=== PATIENT | male | born 1950 | race Caucasian/White ===

== ENCOUNTER 2023-01-21 12:09 | Emergency (ER) | payer MEDICARE, SELFPAY ==
[2023-01-21 12:17] VITALS: BP 175/88; PULSE 84; RESP 14; TEMP 36.7; O2SAT 95; BMI 31.1
[2023-01-21] MEDS: FLUORESCEIN SODIUM 1 MG STRIP OP (12:32)
--- NOTE | 2023-01-21 12:36 | PC.NURSE ---
drop in right eye and light at bedside for DR use.
--- NOTE | 2023-01-21 12:37 | ED_ITS ---
HPI - Eye Problem General Chief complaint: Eye Problems Stated complaint: EYE IRRITATION/SCRATCH Time Seen by Provider: 01/21/23 12:25 Source: patient Mode of arrival: walk-in History of Present Illness HPI Narrative: patient was cutting plywood today and got some of the dust into his right eye. He has redness and a foreign body sensation. he had increased tearing. No visual change. he does not wear contact lenses, glasses or protective eyewear. He called to a local screw cutter's office and they told him to come to the ER. Related Data Home Medications Medication Instructions Recorded Confirmed losartan 100 mg tablet 100 mg PO DAILY 01/21/23 01/21/23 warfarin 1 mg tablet 0.5 mg PO DAILY 01/21/23 01/21/23 Previous Rx's Medication Instructions Recorded tobramycin 0.3 %-dexamethasone 0.1 1 drp ophthalmic (eye) Q6H 5 days 01/21/23 % eye drops,suspension (TobraDex) #2.5 mL Allergies Allergy/AdvReac Type Severity Reaction Status Date / Time moxifloxacin [From Avelox] Allergy Severe Verified 01/21/23 12:17 Quinolones Allergy Severe Verified 01/21/23 12:17 Sulfa (Sulfonamide Allergy Severe Verified 01/21/23 12:17 Antibiotics) sulfamethoxazole Allergy Severe Verified 01/21/23 12:17 [From Bactrim] trimethoprim [From Bactrim] Allergy Severe Verified 01/21/23 12:17 [facility] Medical History (Updated 01/21/23 @ 12:47 by Marco Crystal) Exam Narrative Exam Narrative: General: The patient appears well and in no apparent distress. Patient is resting comfortably on cart. Skin: Warm, dry, no pallor noted. Head: Normocephalic, atraumatic Neck: Supple, trachea mid-line, no tenderness, no lymphadenopathy Eye: Normal extraocular motion without associated pain. Pupils equal, round and reactive to light. Conjunctival injection noted. No swelling of the upper/lower eyelid. Patient's upper eyelid was everted - no evidence of foreign body. The patient had ALCAINE/TETRACAINE applied to the right eye with fluorescein dye instilled afterward. Exam with Wood's lamp showed a tiny set of linear uptake at the right cornea. No evidence of hyphema, dendritic lesion, corneal ulcerations, preseptal cellulitis or orbital cellulitis. Ears, Nose, Mouth, and Throat: oral mucosa is moist Respiratory: Patient is in no distress Neurological: A&O x4, normal speech Psychiatric: Cooperative and interactive. Constitutional Vital Signs - 24 hr 01/21/23 12:17 Temperature 98.1 F Pulse Rate [Monitor] 84 Respiratory Rate 14 Blood Pressure [Left Arm] 175/88 H Pulse Oximetry 95 Oxygen Delivery Method Room Air Course Vital Signs Vital signs: Vital Signs Temperature 98.1 F 01/21/23 12:17 Pulse Rate 84 01/21/23 12:17 Respiratory Rate 14 01/21/23 12:17 Blood Pressure 175/88 H 01/21/23 12:17 Pulse Oximetry 95 01/21/23 12:17 Oxygen Delivery Method Room Air 01/21/23 12:17 Temperature 98.1 F 01/21/23 12:17 Pulse Rate 84 01/21/23 12:17 Respiratory Rate 14 01/21/23 12:17 Blood Pressure 175/88 H 01/21/23 12:17 Pulse Oximetry 95 01/21/23 12:17 Oxygen Delivery Method Room Air 01/21/23 12:17 MDM - Eye Problem MDM Narrative Medical decision making narrative: the patient has two small linear areas of dye uptake on the cornea. he was informed of these findings, which are very small, discharged home and prescribed tobradex drops for home use. he was referred to local turret punch press operator, michael Vasquez or follow up since Dr Mujica was not able to see him. Discharge Plan Discharge Chief Complaint: Eye Problems Clinical Impression: Corneal abrasion Patient Disposition: Home, Self-Care Time of Disposition Decision: 12:46 Prescriptions / Home Meds: New tobramycin-dexamethasone [TobraDex] 0.3-0.1 % drops,suspension 1 drp ophthalmic (eye) Q6H 5 Days Qty: 2.5 0RF Rx Instructions: one drop to affected eye q6hrs x5 days No Action losartan 100 mg tablet 100 mg PO DAILY warfarin 1 mg tablet 0.5 mg PO DAILY Instructions: Corneal Abrasion (ED) Stand Alone Forms: Portal Instructions Referrals: URMILA ANDERSON [Physician] - As soon as possible
--- NOTE | 2023-01-21 13:02 | PC.NURSE ---
d/c instructions complete, pt verbalized understanding. prescription sent to pt's pharmacy and gait steady to exit
== END 2023-01-21 13:04 | disposition home or self-care (01) ==
PROVIDERS: Emergency Provider Emergency Medicine; PCP Family Medicine
DX: S05.01XA Injury of conjunctiva and corneal abrasion without foreign body, right eye, initial encounter (principal); X58.XXXA Exposure to other specified factors, initial encounter; Z79.899 Other long term (current) drug therapy; Z79.01 Long term (current) use of anticoagulants
CPT/HCPCS: 99283

== ENCOUNTER 2023-05-31 10:50 | Outpatient (OUT) | payer MEDICARE, SELFPAY ==
--- NOTE | 2023-05-31 | XR_ITS ---
The [address] [address] Patient Name: PADMINI LLOYD MRN: [id number] date: 1950 Sex: M Assigned Patient Location: [facility] Current Patient Location: [facility] Accession/Order Number: [id number] Exam Date: 05/31/2023 11:10 Report Date: 05/31/2023 13:45 At the request of: VAHE MIXON Procedure: XR abdomen 1V EXAM: XR abdomen 1V HISTORY: Bladder Neck Contracture, Bladder Stones COMPARISON: None. TECHNIQUE: AP view of the abdomen. FINDINGS: Nonobstructive bowel gas pattern is noted. There is no suspicious calcification. The osseous structures are intact. XR/XR abdomen 1V IMPRESSION: Nonobstructive bowel gas pattern. No suspicious renal calcification. Electronically authenticated by: URMILA AYALA Date: 05/31/2023 13:45
== END 2023-05-31 10:51 | disposition home or self-care (01) ==
PROVIDERS: PCP Family Medicine; Visit Provider Urology
DX: N21.0 Calculus in bladder (principal); N32.0 Bladder-neck obstruction
CPT/HCPCS: 74018

== ENCOUNTER 2023-12-14 11:52 | Outpatient (OUT) | payer MEDICARE, SELFPAY ==
--- OUTSIDE RECORDS SUMMARY | 2023-12-14 11:58 | XMS_ITS | CCD ---
Author Organization [facility] Care Team Providers Care Hosting Engineer Name Role Phone Jarred Arias Primary Care Provider [phone] JARRED ARIAS Primary Care Physician Jarred Arias MD Primary Care Provider Jarred Arias MD Primary Care Provider JARRED ARIAS Primary Care Physician Unavail able RADHA, DR CORINNA Haywood Admitting Unavailable RADHA, DR CORINNA Haywood Attending Unavailable RADHA, DR CORINNA Haywood Consulting Unavailable HEMEJERRY ., DR CERVANTES Primary Care Unavailable HERIBERTO JOLLY Consulting Unavailable MICHAEL Blanco, DR ALTHEA Mcginnis Consulting Unavaila nura Blanco, DR ALTHEA Mcginnis Admitting Unavaila nura Blanco, DR ALTHEA Mcginnis Attending Unavaila ble JUANA ., DR CERVANTES Primary Care Unavailable MICHAEL Blanco, DR ALTHEA Mcginnis Admitting Unavaila nura Blanco, DR ALTHEA Mcginnis Attending Unavaila ble JUANA ., DR CERVANTES Primary Care Unavailable MICHAEL Blanco, DR ALTHEA Mcginnis Consulting Unavaila ble CABALLERO, YAEL Consulting Unavailable MICHAEL Blanco, DR ALTHEA Mcginnis Admitting Unavaila ble MICHAEL Blanco, DR ALTHEA Mcginnis Attending Unavaila ble JUANA ., DR CERVANTES Referring Unavailable HEMEYER ., DR CERVANTES Primary Care Unavailable MICHAEL Blanco, DR ALTHEA Mcginnis Consulting Unavaila ble AGUBOSIM, BHARATH Consulting Unavailable NICK FANG Consulting Unavailable RADHA, DR CORINNA Haywood Admitting Unavailable JUANA ., DR CERVANTES Primary Care Unavailable [place], DR CHRISTIAN Beal Consulting Unavailable RADHA, DR CORINNA Haywood Attending Unavailable RADHA, DR CORINNA Haywood Consulting Unavailable MD Domenico Gipson Attending Provider MD Jarred Arias Primary Care Provider [phone] Jarred Arias MD Unavailable Jarred Arias MD Primary Care Provider [phone] Kellie Odom LPN Unavailable MD Jarred Arias Primary Care Provider [phone] DO Juan Cook Attending Provider MD Jarred Arias Primary Care Provider DO Juan Cook Attending Provider Juan Cook Attending Unavailable Hemeyer, Edjocelynn Rice Primary Care Unavailable Murcek, Juan Admitting Unavailable Murcek, Juan Attending Unavailable Hemeyer, Jarred J Primary Care Unavailable Murcek, Juan Admitting Unavailable Murcek, Juan Attending Unavailable Murcek, Juan Admitting Unavailable Hemeyer, Jarred J Primary Care Unavailable Murcek, Juan Attending Unavailable Hemejerry, Jarred Rice Primary Care Unavailable Murcek, Juan Admitting Unavailable Domenico Gipson Admitting Unavailable Domenico Gipson Attending Unavailable Hemeyer, Edjocelynn Rice Primary Care Unavailable Domenico Gipson Admitting Unavailable Domenico Gipson Attending Unavailable Hemeyer, Edjocelynn Rice Primary Care Unavailable HEMEYER, EDJOCELYNN J Attending Unavailable HEMEYER, EDWARD J Referring Unavailable MURCEK, JUAN W Attending Unavailable HEMEYER, JARRED J Referring Unavailable CORINNA GARCIA Referring Unavailable HEMEYER, JARRED J Referring Unavailable MURCEK, JUAN W Attending Unavailable HEMEYER, JARRED J Attending Unavailable MURCEK, JUAN W Attending Unavailable MURCEKJUAN W Attending Unavailable POCOS, CHRISTIAN Carmona Attending Unavailable HEMEYER, JARRED J Referring Unavailable POCOS, CHRISTIAN Carmona Referring Unavailable POCOS, CHRISTIAN Carmona Referring Unavailable POCOS, CHRISTIAN Carmona Referring Unavailable BLACKSMARIVEL VAZ Attending Unavailable POCOS, CHRISTIAN Carmona Referring Unavailable HEMEYER, JARRED J Attending Unavailable HEMEYER, EDWARD J Referring Unavailable Marko GARCIA Referring Unavailable HEMEYER, JARRED DEL VALLE Primary Care Unavailab Marko Bob Attending Unavailable HEMEYER, EDWARD IVON Primary Care Unavailab Marko Bob Attending Unavailable Marko GARCIA Referring Unavailable HEMEYER, JARRED DEL VALLE Primary Care Unavailab Marko Bob Referring Unavailable HEMEYER, EDJOCELYNN DEL VALLE Primary Care Unavailab Marko Bob Attending Unavailable HEMEJARRED SEARS Primary Care Unavailab le MARQUIS, ESMER Grady Admitting Unavailable MARQUIS, ESMER Grady Attending Unavailable Pocos, Christian Carmona Admitting Unavailable Pocos, Christian Carmona Attending Unavailable Pocos, Christian Carmona Referring Unavailable COOK, Domenico Haywood Attending Unavailable COOK, Domenico Haywood Attending Unavailable MARQUIS, ESMER E Attending Unavailable HEMEYER, JARRED Rice Attending Unavailable MARQUIS, ESMER E Attending Unavailable COOK, Domenico Haywood Attending Unavailable HEMEYER, JARRED Rice Attending Unavailable MARQUIS, ESMER E Attending Unavailable MARQUIS, ESMER E Attending Unavailable MARQUIS, ESMER E Attending Unavailable Pocos, Christian Carmona Admitting Unavailable Pocos, Christian Carmona Attending Unavailable Pocos, Christian Carmona Referring Unavailable MARQUIS, ESMER Grady Admitting Unavailable MARQUIS, ESMER E Attending Unavailable MARQUIS, ESMER E Admitting Unavailable MARQUIS, ESMER E Attending Unavailable Allergies Allergy Classification Reported Allergen(s) Allergy Type Date of Onset Reaction(s) Facility (11 sources) moxifloxacin; Translations: [MOXIFLOXACIN HCL] Drug Allergy 017 Mental Status Change [facility] (8 sources) Quinolones (Antibiotic); Translations: [QUINOLONES] Drug Intolerance Other: See Comments [facility] (20 sources) Sulfamethoxazole / Trimethoprim; Translations: [sulfamethoxazole-t rimethoprim] Drug Allergy Mental Status Change, Other: See Comments, History of - kidney disease (context-depende nt category) [facility] Comment on above: pt states the bactri m caused kidney problems when he was in the hospital pt states the bactri m caused kidney problems when he was in the hospital (16 sources) Sulfonamides (Antibiotic); Translations: [SULFA (SULFONAMIDE ANTIBIOTICS)] Drug Allergy Other: See Comments [facility] (20 sources) moxifloxacin; Translations: [moxifloxacin] Drug Allergy 017 Hallucinations (finding) [facility] Work Phone: (8 sources) Quinolones Drug Intolerance Other: See Comments [facility] (2 sources) moxifloxacin; Translations: [Avelox] Drug Allergy [facility] (1 source) moxifloxacin Drug Allergy [facility] (1 source) Quinolones (Antibiotic) Drug allergy (disorder) [facility] (2 sources) Sulfamethoxazole / Trimethoprim; Translations: [Bactrim] Drug Allergy [facility] (1 source) Sulfonamides (Antibiotic) Drug allergy (disorder) [facility] (6 sources) Sulfamethoxazole; Translations: [sulfamethoxazole] Drug Allergy Hallucinating [facility] (6 sources) Trimethoprim; Translations: [trimethoprim] Drug Allergy Hallucinating [facility] (1 source) moxifloxacin Drug Allergy [facility] (1 source) Quinolones (Antibiotic) Drug allergy (disorder) [facility] (1 source) Sulfonamides (Antibiotic) Drug allergy (disorder) [facility] (6 sources) quinolone antibiotics; Translations: [quinolone antibiotics] Drug allergy Mental status change [facility] Medications Current Medications Medication Drug Class(es) Dates Sig (Normalized) Sig (Original) acetaminophen 500 mg oral tablet (2 sources) Start: 10-11-2023 take 2 tablets by mouth once daily Acetaminophen (Acetaminophen Extra Strength) 500 mg tablet Active 1000 MG PO Daily October 11, 2023 1:00am amoxicillin 875 mg oral tablet (1 source) Penicillin-class Antibacterial Start: 03-12-2023 End: 03-22-2023 take 1 tablet by mouth twice daily amoxicillin 875 mg Tab 875 mg = 1 tab(s), Oral, BID, X 10 day(s), # 20 tab(s), Refills(s) 0, Pharmacy: [facility]/pharmacy #[id number], 183, cm, 03/12/23 10:24:00 EDT, Height/Length Dosing, 100, kg, 03/12/23 10:24:00 EDT, Weight Dosing Start Date: 03/12/23 Stop Date: 03/22/23 Status: Ordered cefadroxil 500 mg oral capsule (1 source) Cephalosporin Antibacterial Start: 11-26-2023 End: 11-28-2023 take 1 capsule by mouth every twelve hours cefadroxil 500 mg Cap 500 mg = 1 cap(s), Oral, q12hr, X 2 day(s), # 4 cap(s), Refills(s) 0, Pharmacy: [facility]/pharmacy #[id number], 183, cm, 11/14/23 12:48:00 EDT, Height/Length Dosing, 108, kg, 11/14/23 12:48:00 EDT, Weight Dosing Start Date: 11/26/23 Stop Date: 11/28/23 Status: Ordered cefuroxime 250 mg oral tablet (2 sources) Cephalosporin Antibacterial Start: 04-24-2023 End: 05-04-2023 take 1 tablet by mouth twice daily cefuroxime 250 mg Tab 250 mg = 1 tab(s), Oral, BID, X 10 day(s), # 20 tab(s), Refills(s) 0, [id number], 183, cm, 04/24/23 13:52:00 EDT, Height/Length Dosing, 100, kg, 04/24/23 13:52:00 EDT, Weight Dosing Start Date: 04/24/23 Stop Date: 05/04/23 Status: Ordered cholecalciferol 0.025 mg oral tablet (9 sources) Vitamin D Start: 05-07-2023 take 1 tablet by mouth every other day Cholecalciferol (Vitamin D3) (Vitamin D3) 25 mcg (1,000 unit) Tablet Active 25 MCG PO every other day May 07, 2023 12:00am Start: 05-07-2023 take 1 tablet by bertram once daily in the morning Cholecalciferol (Vitamin D3) (Vitamin D3) 25 mcg (1,000 unit) Tablet Active 25 MCG PO Every morning May 06, 2023 11:00pm docusate sodium 100 mg oral capsule (1 source) Start: 11-26-2023 take 1 capsule by mouth twice daily as needed for constipation Colace 100 mg Cap 100 mg = 1 cap(s), Oral, BID, PRN for constipation, # 40 cap(s), Refills(s) 0, Pharmacy: [facility]/pharmacy #[id number], 183, cm, 11/14/23 12:48:00 EDT, Height/Length Dosing, 108, kg, 11/14/23 12:48:00 EDT, Weight Dosing Start Date: 11/26/23 Status: Ordered doxycycline hyclate 100 mg oral capsule (4 sources) Tetracyclin e-class Drug Start: 04-28-2023 End: 05-08-2023 take 1 capsule by mouth twice daily doxycycline hyclate 100 mg Cap 100 mg = 1 cap(s), Oral, BID, X 10 day(s), # 20 cap(s), Refills(s) 0, Pharmacy: [facility]/pharmacy #[id number], 183, cm, 04/24/23 13:52:00 EDT, Height/Length Dosing, 100, kg, 04/24/23 13:52:00 EDT, Weight Dosing Start Date: 04/28/23 Stop Date: 05/08/23 Status: Ordered Start: 03-12-2023 take 1 capsule by [facility] once daily, then take 1 capsule by mouth once daily doxycycline hyclate 100 mg Cap See Instructions, 1 cap po day prior to procedure, 1 cap po day of procedure, # 2 cap(s), Refills(s) 0, Pharmacy: [facility]/pharmacy #[id number], 183, cm, 03/12/23 10:24:00 EDT, Height/Length Dosing, 100, kg, 03/12/23 10:24:00 EDT, Weight Dosing Start Date: 03/12/23 Status: Ordered Start: 03-28-2022 End: 04-04-2022 take 1 capsule by mouth twice daily doxycycline hyclate 100 mg Cap 100 mg = 1 cap(s), Oral, BID, X 7 day(s), # 14 cap(s), Refills(s) 0, Pharmacy: [facility]/pharmacy #[id number], 183, cm, 02/02/22 9:55:00 EDT, Height/Length Dosing, 100, kg, 01/16/22 11:47:00 EDT, Weight Dosing Start Date: 03/28/22 Stop Date: 04/04/22 Status: Ordered losartan potassium 100 mg oral tablet (20 sources) Angiotensin 2 Receptor Sandro Start: 07-09-2019 End: 01-19-2024 take 1 tablet by mouth once daily losartan 100 mg Tab 100 mg = 1 tab(s), Oral, Daily, Refills(s) 0, Prophylaxis Start Date: 07/09/19 Status: Ordered Comment on above: Take 100 mg by mouth once daily. Magnesium (9 sources) Start: 05-07-2023 take 250 mg by mouth once daily in the morning Magnesium Active 250 MG PO Every morning May 06, 2023 11:00pm Start: 05-07-2023 take 250 mg by mouth once daily in the morning Magnesium Active 250 MG PO Every morning May 07, 2023 12:00am Magnesium 250 mg tab Take 250 mg by mouth. 0 Active Comment on above: Take 250 mg by mouth . magnesium gluconate 250 mg oral tablet (5 sources) Start: 11-11-2023 take 1 tablet by mouth once daily magnesium gluconate 250 mg oral tablet 250 mg, 1 tab(s), Oral, Daily, Prophylaxis Start Date: 11/11/23 Status: Ordered Multi Vitamin+ (18 sources) Start: 07-09-2019 take 1 tablet by mouth once daily Multi Vitamin+ one tab, Oral, Daily, Refill(s) 0 Start Date: 07/09/19 Status: Ordered Multiple Vitamins-Minerals (ONE DAILY 50 PLUS PO) (4 sources) take 1 tablet by mouth once daily in the morning Multiple Vitamins-Minerals (ONE DAILY 50 PLUS PO) Take 1 tablet by mouth in the morning. 0 Active Multivitamin preparation (5 sources) Start: 05-07-2023 take 1 tablet by mouth once daily in the morning Multivitamin Active 1 TAB PO Every morning May 06, 2023 11:00pm Start: 05-07-2023 take 1 tablet by bertram th once daily in the morning Multivitamin Active 1 TAB PO Every morning May 07, 2023 12:00am nebivolol 10 mg oral tablet (14 sources) Start: 07-22-2023 End: 01-18-2024 take 1 tablet by mouth once daily nebivolol 10 mg Tab 10 mg = 1 tab(s), Oral, Daily, High blood pressure Start Date: 11/11/23 Status: Ordered Comment on above: Take 10 mg by mouth every morning. One A Day Men 50 Plus (5 sources) Start: 11-11-2023 take 1 tablet by mouth once daily One A Day Men 50 Plus 1 tab, Oral, Daily, Prophylaxis Start Date: 11/11/23 Status: Ordered oxyCODONE hydrochloride 5 mg oral tablet (1 source) Opioid Agonist Start: 11-26-2023 oxyCODONE 5 mg Tab 5 mg = 1 tab(s), Oral, As Directed, 1-2 po q4-6 hrs prn pain Dx: M16.12, z96.642 Duration: 7days, # 40 tab(s), Refills(s) 0, [id number], 183, cm, 11/14/23 12:48:00 EDT, Height/Length Dosing, 108, kg, 11/14/23 12:48:00 EDT, Weight Dosing Start Date: 11/26/23 Status: Ordered tamsulosin hydrochloride 0.4 mg oral capsule (1 source) alpha-Adrenerg ic Sandro Start: 11-18-2023 End: 12-18-2023 take 1 capsule by mouth once daily tamsulosin 0.4 mg Cap 0.4 mg = 1 cap(s), Oral, Daily, X 30 day(s), # 30 cap(s), Refills(s) 0, [id number], 183, cm, 11/14/23 12:48:00 EDT, Height/Length Dosing, 108, kg, 11/14/23 12:48:00 EDT, Weight Dosing Start Date: 11/18/23 Stop Date: 12/18/23 Status: Ordered vitamin b12 1 mg oral tablet (20 sources) Vitamin B12 Start: 10-11-2023 Cyanocobalamin (Vitamin B-12) (Vitamin B-12) 1,000 mcg tablet Active 1000 MCG PO .2xweek October 11, 2023 1:00am Start: 03-12-2023 Vitamin B12 50 0 mcg, Oral, MonThu, Refills(s) 0, Prophylaxis Start Date: 03/12/23 Status: Ordered Start: 03-12-2023 Vitamin B12 Re fills(s) 0 Start Date: 03/12/23 Status: Ordered cyanocobalamin ( Vitamin B-12) 500 MCG tablet Take 1 tablet by mouth 2 (two) times a week. Twice a month 0 Active Comment on above: Take 1,000 mcg by [facility] two times a week. Vitamin D (20 sources) Start: 07-09-2019 Vitamin D 50,000 International_Unit, Oral, Daily, Refills(s) 0, Prophylaxis Start Date: 07/09/19 Status: Ordered Start: 07-09-2019 Vitamin D Oral , Daily, Refills(s) 0 Start Date: 07/09/19 Status: Ordered Zinc (19 sources) Start: 03-12-2023 take 25 mg by mouth once daily Zinc 25 mg, Oral, Daily, Prophylaxis Start Date: 03/12/23 Status: Ordered Start: 03-12-2023 take 25 mg by mouth once daily Zinc 25 mg, Oral, Daily Start Date: 03/12/23 Status: Ordered End: 09-17-2023 take 1 tablet by mouth in the morning zinc 25 MG tablet Take 1 tablet by mouth in the morning. 0 09/17/2023 Discontinued take 1 tablet by bertram th in the morning zinc 25 MG tablet Take 1 tablet by mouth in the morning. 0 Active ZINC ORAL Take 2 5 mg by mouth. 0 Active Zinc 50 mg tab T sang by mouth. 0 Active Comment on above: Take by mouth. Take 25 mg by mouth. zinc acetate 25 mg oral capsule (5 sources) Start: 05-07-2023 take 25 mg by mouth once daily in the morning Zinc Acetate Active 25 MG PO Every morning May 07, 2023 12:00am zinc, chelated 12.5 mg tablet split tablet (2 sources) zinc, chelated 1 2.5 mg tablet split tablet Take 25 mg by mouth in the morning. 0 Active Completed/Discontinued Medications Medication Drug Class(es) Dates Sig (Normalized) Sig (Original) acetaminophen 325 mg / HYDROcodone bitartrate 5 mg oral tablet (4 sources) Opioid Agonist Start: 05-20-2023 End: 10-11-2023 take 1 tablet by mouth every four to six hours Hydrocodone-Acetam inophen Discontinued 1 TAB PO EVERY 4-6 HOURS 7 May 20, 2023 October 11, 2023 12:09pm cephalexin 500 mg oral capsule (9 sources) Cephalosporin Antibacterial Start: 05-20-2023 End: 10-11-2023 take 500 mg by mouth twice daily Cephalexin Discontinued 500 MG PO Twice daily 10 May 20, 2023 12:00am October 11, 2023 12:07pm Start: 02-08-2022 End: 02-13-2022 take 1 capsule by mouth every twelve hours Keflex 500 mg Cap 500 mg = 1 cap(s), Oral, q12hr, X 5 day(s), # 10 cap(s), Refills(s) 0, Pharmacy: [facility]/pharmacy #[id number], 183, cm, 02/02/22 9:55:00 EDT, Height/Length Dosing, 100, kg, 01/16/22 11:47:00 EDT, Weight Dosing Start Date: 02/08/22 Stop Date: 02/13/22 Status: Ordered Start: 01-16-2022 take 1 capsule by mo [facility] once daily Keflex 500 mg Cap 500 mg = 1 cap(s), Oral, q12hr, take 1 cap the evening prior to scheduled procedure, take 2nd capsule the day of scheduled procedure, # 2 cap(s), Refills(s) 0, Pharmacy: [facility]/pharmacy #[id number], 183, cm, 01/16/22 11:47:00 EDT, Height/Length Dosing, 100, kg... Start Date: 01/16/22 Status: Ordered Cranberry (20 sources) Non-Standardized Food Allergenic Extract, Non-Standardized Plant Allergenic Extract Start: 05-07-2023 End: 10-11-2023 take 500 mg by mouth once daily in the morning Cranberry Discontinued 500 MG PO Every morning May 07, 2023 12:00am October 11, 2023 12:09pm Start: 05-07-2023 take 500 mg by mouth once daily in the morning Cranberry Active 500 MG PO Every morning May 06, 2023 11:00pm Start: 05-07-2023 take 500 mg by mouth once daily in the morning Cranberry Active 500 MG PO Every morning May 07, 2023 12:00am Start: 07-16-2019 take 1 tablet by [facility] once daily Cranberry one tab, Oral, Daily Start Date: 07/16/19 Status: Ordered End: 11-21-2022 CRANBERRY two times a week. 0 11/21/2022 Discontinued (Course of therapy completed) CRANBERRY two ti mes a week. 0 Active Comment on above: two times a week. ergocalciferol, vitamin D2, (VITAMIN D2 ORAL) (10 sources) ergocalciferol, vitamin D2, (VITAMIN D2 ORAL) Take by mouth. 0 Active Comment on above: Take by mouth. iv contrast (will be provided with radiology test) (4 sources) Start: 09-18-2023 End: 09-19-2023 iv contrast (will be provided with radiology test) MRI hip/pelvis LTInject, intravenously, once for 1 dose. No IV access, insert saline lock prior to the beginning of sedation, infusion, injection of imaging exam. Discontinue saline lock post exam. If Pt. has a central line or IVAD, may access for administration according to line specific nursing protocol. Once exam is complete flush line and de-access according to line specific nursing protocol in the MR contrast administration guidelines link 1 Each 0 09/18/2023 09/19/2023 Start: 11-21-2022 End: 11-22-2022 iv contrast (will be provide d with radiology test) MRI Orbits Inject, intravenously, once for 1 dose. No IV access, insert saline lock prior to the beginning of sedation, infusion, injection of imaging exam. Discontinue saline lock post exam. If Pt. has a central line or IVAD, may access for administration according to line specific nursing protocol. Once exam is complete flush line and de-access according to line specific nursing protocol in the MR contrast administration guidelines link. 1 Each 0 11/21/2022 11/22/2022 Start: 05-16-2022 End: 05-17-2022 iv contrast (will be provide d with radiology test) MRI Orbits Inject, intravenously, once for 1 dose. No IV access, insert saline lock prior to the beginning of sedation, infusion, injection of imaging exam. Discontinue saline lock post exam. If Pt. has a central line or IVAD, may access for administration according to line specific nursing protocol. Once exam is complete flush line and de-access according to line specific nursing protocol in the MR contrast administration guidelines link. 1 Each 0 05/16/2022 05/17/2022 Start: 11-16-2021 End: 11-17-2021 iv contrast (will be provide d with radiology test) MRI Orbits Inject, intravenously, once for 1 dose. No IV access, insert saline lock prior to the beginning of sedation, infusion, injection of imaging exam. Discontinue saline lock post exam. If Pt. has a central line or IVAD, may access for administration according to line specific nursing protocol. Once exam is complete flush line and de-access according to line specific nursing protocol in the MR contrast administration guidelines link. 1 Each 0 11/16/2021 11/17/2021 Comment on above: MRI Orbits Inject, i ntravenously, once for 1 dose. No IV access, insert saline lock prior to the beginning of sedation, infusion, injection of imaging exam. Discontinue saline lock post exam. If Pt. has a central line or IVAD, may access for administration according to line specific nursing protocol. Once exam is complete flush line and de-access according to line specific nursing protocol in the MR contrast administration guidelines link. MRI hip/pelvis LTInj ect, intravenously, once for 1 dose. No IV access, insert saline lock prior to the beginning of sedation, infusion, injection of imaging exam. Discontinue saline lock post exam. If Pt. has a central line or IVAD, may access for administration according to line specific nursing protocol. Once exam is complete flush line and de-access according to line specific nursing protocol in the MR contrast administration guidelines link Multivitamin capsule (10 sources) take 1 capsule by mouth once daily Multivitamin capsule Take 1 capsule by mouth once daily. 0 Active Comment on above: Take 1 capsule by [facility] once daily. oxybutynin chloride 5 mg oral tablet (4 sources) Cholinergic Muscarinic Antagonist Start: 05-20-20 End: 10-11-19 24 take 5 mg by mouth twice daily Oxybutynin Chloride Discontinued 5 MG PO Twice daily 24 05May 20, 2023 12:00am October 11, 2023 12:10pm warfarin sodium 1 mg oral tablet (20 sources) Vitamin K Antagonist Start: 05-07-20 End: 10-11-19 24 take 6.5 mg by mouth once daily at bedtime Warfarin Discontinued 0.5 MG PO Daily at bedtime May 07, 2023 12:00am October 11, 2023 12:10pm 6.5mg daily Start: 07-19-2020 [facility] 6 mg Tab 6 mg = 1 tab(s), Oral, Daily, Refills(s) 0 Start Date: 07/19/20 Status: Ordered Start: 07-19-2020 take 6.5 mg by mouth once shantal y warfarin 6 mg Tab 6.5 mg, Oral, Daily, Refills(s) 0 Start Date: 07/19/20 Status: Ordered take 0.5 tablet by [facility] once daily warfarin (Coumadin) 1 MG tablet Take 0.5 tablets by mouth 1 (one) time each day Take as directed per After Visit Summary. 0 Active warfarin sodium (WARFARIN ORAL) Take by mouth daily as directed. As Directed 0 Active Comment on above: Take by mouth daily as directed. As Directed Problems Active Problems Problem Classification Problem Date Documented Da te Episodic/Chronic Aortic; peripheral; and visceral artery aneurysms (2 sources) Ectasia of thoracic aorta; Translations: [Thoracic aortic ectasia] 09-13-2023 Chronic Calculus of urinary tract (20 sources) Calculus in bladder; Translations: [Urinary bladder stone] Onset: 2 Resolved: 3 Episodic Cancer of prostate (15 sources) Malignant tumor of prostate; Translations: [Malignant neoplasm of prostate] Onset: 7 10-23-2016 Chronic Cancer of prostate (20 sources) History of malignant neoplasm of prostate; Translations: [Personal history of malignant neoplasm of prostate] Onset: 8 Episodic Cancer; other and unspecified primary (6 sources) Malignant tumor of orbit; 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] Chronic Cancer; other and unspecified primary (4 sources) Malignant neoplasm of left orbit; 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] Onset: 2 Chronic Cataract (4 sources) Bilateral age-related nuclear cataracts; Translations: [Age-related nuclear cataract, bilateral] Onset: 6 01-03-2023 Chronic Chronic kidney disease (4 sources) Chronic kidney disease stage 3A ; Translations: [Stage 3a chronic kidney disease (HCC)] Onset: 3 01-03-2023 Chronic Congestive heart failure; nonhypertensive (4 sources) Chronic diastolic heart failure; Translations: [Chronic diastolic (congestive) heart failure] Onset: 3 01-03-2023 Chronic Esophageal disorders (4 sources) Gastroesophageal reflux disease without esophagitis; Translations: [Gastro-esophageal reflux disease without esophagitis] Onset: 3 01-03-2023 Chronic Essential hypertension (20 sources) Hypertensive disorder; Translations: [Essential (primary) hypertension] Onset: 2 07-09-2019 Chronic Genitourinary symptoms and ill-defined conditions (20 sources) Male urinary stress incontinence 08-01-2021 Chronic Genitourinary symptoms and ill-defined conditions (20 sources) Dysuria; Translations: [Increased frequency of urination] Onset: 2 Resolved: 3 07-09-2019 Episodic Glaucoma (4 sources) Ocular hypertension; Translations: [Ocular hypertension, bilateral] Onset: 6 01-03-2023 Chronic Hyperplasia of prostate (20 sources) Benign prostatic hypertrophy with outflow obstruction; Translations: [Benign prostatic hyperplasia with lower urinary tract symptoms] Onset: 2 07-19-2020 Chronic Hypertension with complications and secondary hypertension (4 sources) Hypertensive renal disease; Translations: [Hypertensive chronic kidney disease with stage 1 through stage 4 chronic kidney disease, or unspecified chronic kidney disease] Onset: 3 01-03-2023 Chronic Non-Hodgkin`s lymphoma (13 sources) Follicular non-Hodgkin's lymphoma, small cleaved cell (clinical); Translations: [Follicular lymphoma grade I, extranodal and solid organ sites] Onset: 3 Resolved: 3 09-05-2023 Chronic Other and unspecified benign neoplasm (14 sources) Benign neoplasm of cranial nerve; Translations: [Benign neoplasm of cranial nerves] Onset: 8 09-11-2007 Chronic Other bone disease and musculoskeletal deformities (6 sources) Idiopathic scoliosis of thoracic and lumbar spine; Translations: [Other idiopathic scoliosis, thoracolumbar region] Onset: 3 09-13-2023 Chronic Other connective tissue disease (2 sources) Atrophy of quadriceps femoris muscle; Translations: [Muscle wasting and atrophy, not elsewhere classified, unspecified thigh] 09-13-2023 Episodic Other diseases of bladder and urethra (7 sources) Bladder neck obstruction; Translations: [Bladder-neck obstruction] Onset: 3 Chronic Other diseases of bladder and urethra (19 sources) Contracture of bladder neck; Translations: [Bladder-neck obstruction] Onset: 3 08-28-2022 Chronic Other diseases of bladder and urethra (1 source) Bladder-neck obstruction; Translations: [BLADDER-NECK OBSTRUCTION] Onset: 2 Chronic Other diseases of bladder and urethra (4 sources) Bladder outlet obstruction; Translations: [Bladder-neck obstruction] 05-20-2023 Chronic Other diseases of kidney and ureters (1 source) Urinary tract obstruction; Translations: [Other obstructive and reflux uropathy] Onset: 2 Episodic Other endocrine disorders (2 sources) Disorder of parathyroid gland; Translations: [Disorder of parathyroid gland, unspecified] 09-18-2023 Chronic Other endocrine disorders (3 sources) Primary hyperparathyroidism; Translations: [Primary hyperparathyroidism] Onset: 4 09-18-2023 Chronic Other endocrine disorders (1 source) Primary hyperparathyroidism; Translations: [Primary hyperparathyroidism] Onset: 4 Chronic Other lower respiratory disease (1 source) Nodule of lung; Translations: [Solitary pulmonary nodule] Episodic Other nervous system disorders (2 sources) Spinal cord disease; Translations: [Disease of spinal cord, unspecified] 09-13-2023 Chronic Other non-traumatic joint disorders (1 source) Hip pain; Translations: [Pain in left hip] 09-18-2023 Episodic Other nutritional; endocrine; and metabolic disorders (9 sources) Hypercalcemia; Translations: [Hypercalcemia] Onset: 3 Resolved: 3 09-05-2023 Chronic Other nutritional; endocrine; and metabolic disorders (4 sources) Obese class I; Translations: [Obesity, unspecified] Onset: 3 01-03-2023 Chronic Phlebitis; thrombophlebitis and thromboembolism (6 sources) Thromboembolism of vein; Translations: [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] Onset: 3 09-13-2023 Chronic Phlebitis; thrombophlebitis and thromboembolism (20 sources) Deep venous thrombosis; Translations: [Personal history of other venous thrombosis and embolism] Onset: 2 Resolved: 3 07-09-2019 Episodic Retinal detachments; defects; vascular occlusion; and retinopathy (4 sources) Nonexudative age-related macular degeneration; Translations: [Nonexudative age-related macular degeneration, bilateral, early dry stage] Onset: 3 01-03-2023 Chronic Spondylosis; intervertebral disc disorders; other back problems (2 sources) Lumbar radiculopathy; Translations: [Radiculopathy, lumbar region] 09-13-2023 Episodic Unclassified (20 sources) Asymptomatic microscopic hematuria 08-01-2021 Unclassified (20 sources) Drug therapy finding 07-16-2019 Unclassified (1 source) CONTACT W/AND (SUSP) EXPOS COVID-19; Translations: [CONTACT W/AND (SUSP) EXPOS COVID-19] Onset: 2 Unclassified (1 source) Encounter for preprocedural laboratory examination; Translations: [Encounter for preprocedural laboratory examination] Onset: 4 Urinary tract infections (17 sources) Urinary tract infectious disease; Translations: [Urinary tract infection, site not specified] Onset: 3 Episodic Past or Other Problems Problem Classification Problem Date Documented Date Episodic/Chronic Other aftercare (1 source) half-way (current) use of anticoagulants; Translations: [FPC CURRNT USE ANTICOAGULANTS] Onset: 03-16-2022 Episodic Other aftercare (1 source) Other ferry terminal supervisor (current) drug therapy; Translations: [OTH [facility]PC CURRENT DRUG THERAPY] Onset: 03-16-2022 Episodic Other aftercare (4 sources) Drug therapy finding; Translations: [termite control representative (current) use of anticoagulants] Onset: 05-15-2023 05-15-2023 Episodic Other diseases of veins and lymphatics (4 sources) Venous insufficiency of leg; Translations: [Venous insufficiency (chronic) (peripheral)] Onset: 01-03-2023 01-03-2023 Episodic Screening and history of mental health and substance abuse codes (1 source) Personal history of nicotine dependence; Translations: [PERSONAL HISTORY OF NICOTINE DEPEND] Onset: 03-16-2022 Episodic Unclassified (4 sources) Onset: 01-22-2023 01-22-2023 Results Test Name Value Interpretation Reference Range Facility Progress Note-Physicianon Progress Note-Physician Patient: PADMINI LLOYD Age: 73 years Sex: Male : 1950 Associated Diagnoses: None Author: MD Kelly, Reema Toro Postoperative Information Postoperative disposition: Postoperative disposition: To PACU. Optimetrix number: Optimetrix number [id number]. Anesthetic utilized: Regional: Spinal. Health Status Allergies: Allergic Reactions (Selected) Severity Not Documented Avelox- Hallucinations. Bactrim- History of kidney problems. Quinolone antibiotics- Mental status change. Physical Examination VS/Measurements Pain Assessment: Controlled. General: Awake, Alert, Appropriate. Respiratory: Adequate air exchange. Cardiovascular: Stable, Normal peripheral perfusion. Neurological: Normal sensory function. Assessment Anesthetic outcome No anesthetic complications noted. Adequate pain relief. able to void without difficulty, tolerating PO intake, no N/V. Review / Management Condition: Stable. Plan Transfer/Discharge: Transfer/Discharge Discharge when meets criteria ( To home ). Normal [facility] Comment on above: Result Comment: Elec tronically Signed By: MD Kelly, Reema Toro\.br\Date and Time Signed: 12/03/23 19:02 EDT Progress Note-Physician Patient: PADMINI LLOYD Age: 73 years Sex: Male : 1950 Associated Diagnoses: None Author: MD Kelly, Reema Toro Preoperative Information Time patient last ate or drank:=== (npo 8 hours) Anesthesia history: Patient history: No prior anesthesia problems. Re-evaluation prior to induction: Completed, Initial evaluation reviewed. Review of Systems Respiratory: No shortness of breath. Cardiovascular: No chest pain. Hematology/Lymphatics: No bruising tendency, No bleeding tendency. Health Status Allergies: Allergic Reactions (All) Severity Not Documented Avelox- Hallucinations. Bactrim- History of kidney problems. Quinolone antibiotics- Mental status change. Canceled/Inactive Reactions (All) Severity Not Documented Moxifloxacin- Mental status change. Sulfamethoxazole-trimethop rim- Unknown. Current medications: (Selected) Prescriptions Prescribed Colace 100 mg Cap: 100 mg = 1 cap(s), Oral, BID, PRN for constipation, # 40 cap(s), Refills(s) 0, Pharmacy: [id number], 183, cm, 11/14/23 12:48:00 EDT, Height/Length Dosing, 108, kg, 11/14/23 12:48:00 EDT, Weight Dosing oxyCODONE 5 mg Tab: 5 mg = 1 tab(s), Oral, As Directed, 1-2 po q4-6 hrs prn pain Dx: M16.12, z96.642 Duration: 7days, # 40 tab(s), Refills(s) 0, Pharmacy: [id number], 183, cm, 11/14/23 12:48:00 EDT, Height/Length Dosing, 108, kg, 11/14/23 12:48:00 EDT, Weight... tamsulosin 0.4 mg Cap: 0.4 mg = 1 cap(s), Oral, Daily, X 30 day(s), # 30 cap(s), Refills(s) 0, Pharmacy: [id number], 183, cm, 11/14/23 12:48:00 EDT, Height/Length Dosing, 108, kg, 11/14/23 12:48:00 EDT, Weight Dosing Documented Medications Documented One A Day Men 50 Plus: 1 tab, Oral, Daily, Prophylaxis Vitamin B12: 500 mcg, Oral, MonThu, Refills(s) 0, Prophylaxis Vitamin D: 50,000 International_Unit, Oral, Daily, Refills(s) 0, Prophylaxis Zinc: 25 mg, Oral, Daily, Prophylaxis losartan 100 mg Tab: 100 mg = 1 tab(s), Oral, Daily, Refills(s) 0, Prophylaxis magnesium gluconate 250 mg oral tablet: 250 mg, 1 tab(s), Oral, Daily, Prophylaxis nebivolol 10 mg Tab: 10 mg = 1 tab(s), Oral, Daily, High blood pressure warfarin 6 mg Tab: 6 mg = 1 tab(s), Oral, Daily, Refills(s) 0 Problem list: All Problems DVT (deep venous thrombosis) / SNOMED CT 972632578 / Confirmed Hypertension / SNOMED CT 97628512 / Confirmed H/O prostate cancer / SNOMED CT 0206213437 / Confirmed Dysuria / SNOMED CT 72695528 / Confirmed Urine frequency / SNOMED CT 334236931 / Confirmed Nocturia / SNOMED CT 232955448 / Confirmed Urinary urgency / SNOMED CT 490189824 / Confirmed BPH with urinary obstruction / SNOMED CT 4273348032 / Confirmed Microscopic hematuria / SNOMED CT 013355548 / Confirmed Anticoagulated / SNOMED CT 358824902 / Confirmed Poor urinary stream / SNOMED CT 337198228 / Confirmed Asymptomatic microscopic hematuria / SNOMED CT 7079016640 / Confirmed Stress incontinence, male / SNOMED CT 4492209774 / Confirmed Bladder neck contracture / SNOMED CT 5450909431 / Confirmed UTI (urinary tract infection) / SNOMED CT 629019438 / Confirmed Kidney stones / SNOMED CT 402657102 / Confirmed History of UTI / SNOMED CT 0805051364 / Confirmed Bladder stones / SNOMED CT 997188416 / Confirmed UTI symptoms / SNOMED CT 935981228 / Confirmed Inactive: Lymphoma / SNOMED CT 7069532223 Histories Past Medical History: No active or resolved past medical history items have been selected or recorded. Family History: Hypertension Mother Primary malignant neoplasm of prostate Father Kidney Disease Father Procedure history: Total LEFT hip replacement (906902511) on 11/26/2023 at 73 Years. TURP/cysto/holmium laser ablation bladder neck/bladder outlet calfications (870597859) on 05/20/2023 at 73 Years. Litholapaxy of bladder calculus (2431101004) on 03/14/2022 at 71 Years. Cystourethroscopy with dilation of urethral stricture (852209371) on 02/08/2022 at 71 Years. Cystoscopy/OIU/ Bladder stone extraction (81885704) on 08/24/2020 at 70 Years. Greenlight laser (863512768) on 05/15/2017 at 67 Years. Brachytherapy (981836134) in 2017 at 67 Years. Transrectal biopsy of prostate using ultrasound (US) guidance (5377613250) on 09/07/2016 at 66 Years. Colonoscopy (057772069). Social History Social & Psychosocial Habits Alcohol 11/26/2023 Risk Assessment: Denies Alcohol Use Substance Abuse 11/26/2023 Risk Assessment: Denies Substance Abuse Tobacco 11/26/2023 Risk Assessment: Denies Tobacco Use 11/26/2023 Tobacco Use: Former smoker, quit more, quit 1984 Smokeless tobacco use: Never Type: Cigarettes Comment: pt quit smoking in 1984 - 07/09/2019 11:27 - Annabelle Lind Physical Examination Please see preop flow sheet Airway: Mallampati classification: II (soft palate, fauces, uvula visible). Respiratory: Lungs are clear to auscultation. Cardiovascular: Normal rate, Regular rhythm. Neurologic: Alert. (more content not included)... Normal [facility] Comment on above: Result Comment: Elec tronically Signed By: GhMD hummel Ahmad F\.br\Date and Time Signed: 12/03/23 19:00 EDT IntraOperative Documentson 0 12-02-2023 IntraOperative Documents [id number] [facility] Operative Reporton Operative Report Patient: CORAZON LLOYD Age: 73 years Sex: Male : 1950 Associated Diagnoses: None Author: MD Olea Ahmad F Postoperative Information Date/ Time: 11/26/2023 07:00:00 Preoperative Diagnosis: Acute postoperative pain., Per surgeon request for post-op pain management. Postoperative Diagnosis: Acute postoperative pain, Per surgeon request for post-op pain management. Procedure: Fascia iliaca nerve block. Anesthesia Method: Local, Monitored anesthesia care. Performed by: MD Olea Ahmad F. Medications: Midazolam 2mg. Complications: None. Notes: The patient was interviewed and examined prior to the planned operation. Anesthesia options were discussed including the fascia iliaca nerve block for postoperative analgesia. This discussion included a description of the procedure, risks and benefits, as well as alternatives to the block. The patient's questions were addressed and the patient elected to proceed with the fascia iliaca nerve block. After a timeout, the patient was placed in the supine position and monitored with continuous pulse oximetry, non-invasive blood pressure, and electrocardiography. The upper thigh and hip was prepped with CHG and sterilely draped. Anatomical landmarks were identified with ultrasonographic guidance. A 2 x 22 gauge Stimuplex needle was inserted without pain or paresthesias. With the needle held in place, and with intermittent attempts for aspiration of blood, 30 cc of 0.25% Ropivacaine was injected at 5cc intervals. Negative aspiration for blood was confirmed at every 5cc interval. No signs or symptoms of intravascular or intraneural injection were evidenced. The patient tolerated the procedure well without complications. . [facility] Comment on above: Result Comment: Elec tronically Signed By: MD Olea Ahmad F\.br\Date and Time Signed: 12/02/23 09:25 EDT Main OR Intraoperative Recor don 11-28-2023 Main OR Intraoperative Record IntraOp Document Type FT Summary Primary Physician: Christian Bustos DO Finalized Date/Time: 11/28/23 11:53:15 Pt. Name: PADMINI LLOYD /Sex: 1950 Male Med Rec #: [id number] Physician: Christian Bustos DO Financial #: [id number] Pt. Type: A Room/Bed: [facility] Admit/Disch: 11/26/23 05:37:34 - 11/26/23 13:45:00 Institution: Case Times FT Entry 1 Patient Times In Room 11/26/23 07:13:00 Out Room 11/26/23 08:59:00 Procedure Times Start 11/26/23 07:43:00 Stop 11/26/23 08:54:00 Anesthesia Times Start 11/26/23 07:13:00 Stop 11/26/23 08:59:00 Block Timeout w11/26/23 07:06:00 Anesthesia Last Modified By: Trever SCOTT, Carissa Rice 11/26/23 08:59:05 General Comments: block by dr olea, assisted by Sara Duran RN. heart rate 65, spo2 95% on room air. sonia flowers 11/28/23 Chart opened for charge check per Garfield Hernandez RN. [place] Case Attendance FT Entry 1 Entry 2 Entry 3 Case Attendee Debra GUPTA, TAIL WORKER, Queen Marcinmaximiliano VELÁZQUEZChristian CST, Juan Gonzales Role Performed TAIL WORKER Surgeon - Primary CLEANING AND MAINTENANCE WORKER/SA Time In 11/26/23 07:13:00 11/26/23 07:30:00 11/26/23 07:13:00 Time Out 11/26/23 08:59:00 11/26/23 08:50:00 11/26/23 08:59:00 Procedure HIP TOTAL ROBOT HIP TOTAL ROBOT HIP TOTAL ROBOT ARTHROPLASTY(Left) ARTHROPLASTY(Left) ARTHROPLASTY(Left) Comments dr olea supervising Last Modified By: Trever SCOTT, Carissa Perera RN, Carissa Perera RN, Carissa Rice 11/26/23 08:59:06 11/26/23 08:59:06 11/26/23 08:59:06 Entry 4 Entry 5 Entry 6 Case Attendee Trever SCOTT, Carissa Grant LPN, Sara Hernandez Role Performed Bisque Tile Burner - Primary Scrub - Primary Staff - Other Time In 11/26/23 07:13:00 11/26/23 07:13:00 11/26/23 07:13:00 Time Out 11/26/23 08:59:00 11/26/23 08:59:00 11/26/23 07:38:00 Procedure HIP TOTAL ROBOT HIP TOTAL ROBOT HIP TOTAL ROBOT ARTHROPLASTY(Left) ARTHROPLASTY(Left) ARTHROPLASTY(Left) Comments tino feliz, [facility] student, also scrubbed in at field Last Modified By: Trever SCOTT, Carissa Perera RN, Carissa Perera RN, Carissa Rice 11/26/23 08:59:06 11/26/23 08:59:06 11/26/23 08:59:06 Entry 7 Case Attendee Vic Root Role Performed Staff - Other Time In 11/26/23 07:13:00 Time Out 11/26/23 08:59:00 Procedure HIP TOTAL ROBOT ARTHROPLASTY(Left) Comments 2nd scrub Last Modified By: Trever SCOTT, Carissa Rice 11/26/23 08:59:06 General Comments: dejan ramirez, also in attendance. sonia flowers rma with Dr Bustos' office, also in room to observe. sonia flowersrn allergy Protocols FT Pre-Care Text: Implements protective measures prior to operative or invasive procedure, confirms identity before the operative or invasive procedure, verifies operative procedure, surgical site, and laterality Entry 1 Procedure(s) HIP TOTAL ROBOT Patient Identity Birthday, Blood Band, ARTHROPLASTY(Left) Verified (select at ID Band Check, Patient least 2): Participation Consents / H and P Anesthesia Consent, Operative Site Present Verified HandP, Surgery/Procedure Marking Verified Consent, Transfusion Consent Surgical Site Yes Laterality Verified Yes Verified Procedure Verified Yes Correct Patient Yes Position Verified Availability Equipment, Implant, Prep Dry Yes Verified (If Medication, X-ray Applicable) PreOp Antibiotic Yes Time Out Debra GUPTA, DORIS, Queen Sergei Parker NRey Blanco DO, Eric Boswell CST, Trever Martinez RN, Carissa Rice, Rudy DUARTE, Megan D, BurgdSara yousif Osuna, Alejandro Time Out Complete 11/26/23 07:30:00 Outcomes Met? Yes Last Modified By: Carissa Perera RN 11/26/23 07:46:20 Post-Care Text: The patient is free from signs and symptoms of injury caused by extraneous objects Allergy Information FT Pre-Care Text: Verifies allergies Entry 1 Allergies Reviewed? Yes Allergies Reviewed Self/Patient With Outcomes Met? Yes Last Modified By: Carissa Perera RN 11/26/23 07:46:38 Post-Care Text: The patient received appropriate medication(s) safely administered during the perioperative period Surgical Procedures FT Entry 1 Procedure Description Procedure HIP TOTAL ROBOT Modifiers Left ARTHROPLASTY Surgeon Description LEFT ROBOTIC ASSIST TOTAL HIP ARTHROPLASTY Primary Procedure Yes Primary Surgeon Christian Bustos DO Start 11/26/23 07:43:00 Stop 11/26/23 08:54:00 Anesthesia Type General Surgical Service Orthopedics Wound Class 1 - Clean Last Modified By: GERMAINE Hernandez RN, Melinda 11/28/23 11:51:09 General Case Data FT Pre-Care Text: Classifies surgical wound, implements aseptic technique, initiates traffic control Entry 1 Case Information OR OR 5 FT Case Level Level 6 Wound Class 1 - Clean Specialty Orthopedics ASA Class 3 Preop Diagnosis LEFT HIP OA Postop Same As Preop Yes Postop Diagnosis LEFT HIP OA Outcomes Met? Yes Last Modified By: GERMAINE Hernandez RN, Muriel 11/28/23 11:51:13 Post-Care Text: The patient is free from signs and symptoms of infection (more content not included)... Normal [facility] XR Hip 1 View Left + Pelviso n 11-28-2023 XR Hip 1 View Left + Pelvis Exam Date/Time: 11/26/2023 09:11 EDT Reason for Exam: Post Op Report IMPRESSION: POSTSURGICAL CHANGES OF LEFT TOTAL HIP ARTHROPLASTY. EXAM: X-ray hip, 2 view HISTORY: Postoperative evaluation total hip arthroplasty TECHNIQUE: Frontal and lateral views of the left hip COMPARISON: CT 11/11/2023 FINDINGS: Postsurgical changes of total hip arthroplasty including soft tissue emphysema. Alignment is anatomic. No periprosthetic abnormality. Ordering Provider: Christian Bustos FINAL REPORT Dictated: 11/28/2023 12:04 pm Tristan Marcelo DO Signed (Electronic Signature): 11/28/2023 12:04 pm Signed by: Tristan Marcelo DO Transcribed by: EDI Technologist: BLANCA Technical Comments Radiation Dose: Ka,r in mGy = na DAP = na Normal [facility] Consent for Anesthesiaon Consent for Anesthesia [id number]#[id number] Normal [facility] Discharge Instructionson Discharge Instructions [id number]#[id number] Normal [facility] IntraOperative Documentson 0 11-27-2023 IntraOperative Documents [id number]#[id number] Normal [facility] Pre-Op Checkliston Pre-Op Checklist [id number]#[id number] Normal [facility] ABO/Rhon 11-26-2023 ABO/Rh Positive Invalid Interpretation Code [facility] Comment on above: Performed By: #### 1 [id number] #### [facility] [address] [place] [address] ABO/Rh History Checkon 11-25 ABO/Rh History Check Verified Hx Blood Type Normal [facility] Comment on above: Performed By: #### 1 [id number] ####[facility] [id number] [place] [address] ABSCon 11-26-2023 ABSC Gel Interp Negative Normal [facility] Comment on above: Performed By: #### 1 [id number] ####[facility] [address] [place] [address] BLOOD BANKOrdered By: Zbigniew Llanes on 11-26-2023 ABO/Rh Interp Positive Invalid Interpretation Code [facility] BB Subsection ABSC Gel Interp Negative (11/26/23 6:17 AM) Normal [facility] BB Subsection Blood Bank ID#on 11-26-2023 BBID# [id number] Invalid Interpretation Code [facility] Comment on above: Performed By: #### 1 [id number] #### [facility] [address] [place] [address] COAGULATIONOrdered By: Tony Valencia on 11-26-2023 aPTT Coag (PPP) [Time] 35.3 s Normal 25.1 - 36.5 second(s) [facility] Auto Coag Comment on above: Interpretive Data: P arameter 15 days - 4 weeks 1 - 5 months 6 - 11 months 1 - 5 years 6 - 10 years 11 - 17 years PTT Mean: 35.4 (27.6-45.6) Mean: 33.5 (24.8-40.7) Mean: 32.4 (25.1-40.7) Mean: 31.6 (24.0-39.2) Mean: 31.6 (26.9-38.7) Mean: 31.0 (24.6-38.4) Pediatric Reference ranges were obtained from a study by Micha Mckeon et al. prepared from 1437 samples obtained at 7 different centers using the same coagulation reagent and instrumentation as [facility]. Currently there are no coagulation studies available worldwide for children to 14 days, and no normal ranges. Heparin therapeutic range (represented by Anti-Factor Xa activity of 0.2 - 0.4 U/mL) corresponds to PTT of 56.6 - 109.0 sec. INR Coag (PPP) [Relative time] 1.17 {INR} Invalid Interpretation Code [facility] Comment on above: Interpretive Data: I NR results are specifically intended to assess patients stabilized on long-term Anticoagulation therapy suggested INR s Less Intensive Anticoagulation 2.0 3.0 Conventional Range 3.0 4.5 PT Coag (PPP) [Time] 13.1 s High 9.4 - 1 2.5 second(s) [facility] Comment on above: Interpretive Data: 1 5 days - 4 weeks 1 - 5 months 6 -11 months 1-5 years 6-10 years 11 -17 years Mean: 11.2 (9.5-12.6) Mean: 11.0 (9.7-12.8) Mean: 11.0 (9.8-13.0) Mean: 11.3 (9.9-13.4) Mean: 11.7 (10.0-14.6) Mean: 11.8 (10.0 - 14.1) Pediatric Reference ranges were obtained from a study by Micha Mckeon et al. prepared from 1437 samples obtained at 7 different centers using the same coagulation reagent and instrumentation as [facility]. Currently there are no coagulation studies available worldwide for children to 14 days, and no normal ranges. Consent for Treatmenton 11-04 Consent for Treatment [id number] Normal [facility] Discharge Instructionson Discharge Instructions HAROONEsdrasPADMINI THORNE :1950 Visit Date:11/26/2023 Inpatient Discharge Instructions Your Care Team Admitting Physician - Christian Bustos DO Referring Physician - Christian Bustos DO Reason for Your Visit LEFT HIP OA Tests Performed XR Hip 1 View Left + Pelvis -- Results Pending -- Please visit your patient portal for your results or contact your primary care physician. This Is Your Medications List cefadroxil (cefadroxil 500 mg Cap) cyanocobalamin (Vitamin B12) docusate (Colace 100 mg Cap) ergocalciferol (Vitamin D) losartan (losartan 100 mg Tab) magnesium gluconate (magnesium gluconate 250 mg oral tablet) multivitamin with minerals (One A Day Men 50 Plus) nebivolol (nebivolol 10 mg Tab) oxycodone (oxyCODONE 5 mg Tab) tamsulosin (tamsulosin 0.4 mg Cap) warfarin (warfarin 6 mg Tab) zinc sulfate (Zinc) Procedure History TURP - Transurethral resection of prostate (05/20/2023), Litholapaxy of bladder calculus (03/14/2022), Cystourethroscopy with dilation of urethral stricture (02/08/2022), Cystoscopy (08/24/2020), Endoscopic transurethral electrovaporization of prostate (05/15/2017), Transrectal biopsy of prostate using ultrasound (US) guidance (09/07/2016), Brachytherapy (2017), Colonoscopy. What to do next New Follow Up Appointments after Discharge Follow Up with Christian Bustos When: Comments: Appointment has already been scheduled Call for any problems. Keep scheduled appointment Where: [address], [address] [place] [address]- Business (1) Medications What How Much When Instructions Next Dose New cefadroxil (cefadroxil 500 mg Cap) 1 Capsules By Mouth Every 12 hours Duration: 2 Days Pickup at [facility]/pharmacy #[id number] New docusate (Colace 100 mg Cap) 1 Capsules By Mouth 2 times a day as needed for for constipation Pickup at [facility]/pharmacy #[id number] New oxycodone (oxyCODONE 5 mg Tab) 1 Tablets By Mouth As Directed May take supplemental tylenol 1-2 po q4-6 hrs prn pain Dx: M16.12, z96.642 Duration: 7days Pickup at [facility]/pharmacy #[id number] Unchanged cyanocobalamin (Vitamin B12) 500 Microgram By Mouth Saturday & Unchanged ergocalciferol (Vitamin D) 50,000 International unit By Mouth Every day Unchanged losartan (losartan 100 mg Tab) 1 Tablets By Mouth Every day Unchanged magnesium gluconate (magnesium gluconate 250 mg oral tablet) 1 Tablets By Mouth Every day Unchanged multivitamin with minerals (One A Day Men 50 Plus) 1 tab By Mouth Every day Unchanged nebivolol (nebivolol 10 mg Tab) 1 Tablets By Mouth Every day Unchanged tamsulosin (tamsulosin 0.4 mg Cap) 1 Capsules By Mouth Every day Duration: 30 Days Unchanged warfarin (warfarin 6 mg Tab) 1 Tablets By Mouth Every day Unchanged zinc sulfate (Zinc) 25 Milligram By Mouth Every day Pharmacy Information [facility]/pharmacy #[id number]: [address], [place] [phone] Allergies Avelox (Hallucinations) Bactrim (History of kidney problems) quinolone antibiotics (Mental status change) Problems Ongoing - Any problem that you are currently receiving treatment for. Anticoagulated Asymptomatic microscopic hematuria Bladder neck contracture Bladder stones BPH with urinary obstruction DVT (deep venous thrombosis) Dysuria H/O prostate cancer History of UTI Hypertension Kidney stones Microscopic hematuria Nocturia Poor urinary stream Stress incontinence, male Urinary urgency Urine frequency UTI (urinary tract infection) UTI symptoms Devices Implanted/Removed This Visit Notice: You have devices implanted this visit that may not be MRI compatible. Implanted HIP TOTAL ROBOT ARTHROPLASTY Hip L 6.5MM LOW PROFILE HEX SCREW 11/26/2023 ACCOLADE II 127 DEGREE NECK ANGLE HIP STEM 11/26/2023 BIOLOX DELTA CERAMIC V40 FEMORAL HEAD 11/26/2023 TRIDENT II TRITANIUM CLUSTERHOLE ACETABULAR SHELL 11/26/2023 TRIDENT X3 0 DEGREE POLYETHYLENE INSERT 11/26/2023 Education Materials How to Use an Incentive Spirometer An incentive spirometer is a tool that measures how well you are filling your lungs with each breath. Learning to take long, deep breaths using this tool can help you keep your lungs clear and active. This may help to reverse or lessen your chance of developing breathing (pulmonary) problems, especially infection. You may be asked to use a spirometer: ? After a surgery. ? If you have a lung problem or a history of smoking. ? After a long period of time when you have been unable to move or be active. If the spirometer includes an indicator to show the highest number that you have reached, your health care provider or respiratory therapist will help you set a goal. Keep a log of your progress as told by your health care provider. What are the risks? ? Breathing too quickly may cause dizziness or cause you to pass out. Take your time so you do not get dizzy or light-headed. ? If y (more content not included)... Normal [facility] Comment on above: Result Comment: Elec tronically Signed By: Dylon SCOTT, Alonso Thomas\.br\Date and Time Signed: 11/26/23 09:27 EDT H&P Updateon 11-26-2023 H&P Update [id number] Normal [facility] Main OR PACU I Recordon 11-04 Main OR PACU I Record PACU Phase I Docum ent Type FT Summary Primary Physician: Christian Bustos DO Finalized Date/Time: 11/26/23 10:16:27 Pt. Name: PADMINI LLOYD/Sex: 1950 Male Med Rec #: [id number] Physician: Christian Bustos DO Financial #: [id number] Pt. Type: A Room/Bed: [facility] Admit/Disch: 11/26/23 05:37:34 - Institution: Case Times PACU I FT Pre-Care Text: Identifies barriers to communication and implements measures to provide psychological support Develops individualized plan of care, and ensures continuity of care Maintains patient's dignity and privacy, and maintains patient confidentiality Identifies and reports philosophical, cultural, and spiritual beliefs and values Identifies individual values and wishes concerning care Implements aseptic technique, and administers prescribed antibiotic therapy and immunizing agents as ordered Evaluates postoperative tissue perfusion Implements thermoregulation measures, and monitors body temperature Evaluates postoperative respiratory status Evaluates postoperative cardiac status Evaluates postoperative neurological status Assesses pain control, collaborated in initiating patient-controlled analgesia and implements alternative methods of pain control Verifies allergies, administers prescribed medications and solutions, evaluates response to medications Entry 1 In PACU I 11/26/23 09:00:00 Discharge from PACU 11/26/23 09:30:00 I Outcomes Met? Yes Last Modified By: Emilie Mora RN 11/26/23 10:16:24 Post-Care Text: The patient demonstrates knowledge of the expected response to the operative or invasive procedure The patient's care is consistent with the individualized perioperative plan of care The patient's right to privacy is maintained The patient's value system, lifestyle, ethnicity, and culture are considered, respected, and incorporated into the perioperative plan of care The patient participates in decisions affecting his or her perioperative plan of care The patient is free from signs and symptoms of infection The patient has wound/tissue perfusion consistent with or improved from baseline levels established preoperatively The patient is at or returning to normothermia at the conclusion of the immediate postoperative period The patient's respiratory function is consistent with or improved from baseline levels established preoperatively The patient's cardiovascular status is consistent with or improved from baseline levels established preoperatively The patient's cardiovascular status is consistent with or improved from baseline levels established preoperatively The patient demonstrates and/or reports adequate pain control throughout the perioperative period The patient received appropriate medication(s), safely administered during the perioperative period Acuity Level PACU I FT Entry 1 Start Time 11/26/23 09:00:00 Stop Time 11/26/23 09:30:00 Acuity Level Acuity Level I Last Modified By: Emilie Mora RN 11/26/23 10:16:13 Finalized By: Emilie Mora RN Document Signatures Signed By: Emilie Mora RN 11/26/23 10:16 Normal [facility] Main OR PACU II Recordon Main OR PACU II Record PACU Phase II Doc ument Type FT Summary Primary Physician: Christian Bustos DO Finalized Date/Time: 11/26/23 14:12:10 Pt. Name: PADMINI LLOYD Armando Tee/Sex: 1950 Male Med Rec #: [id number] Physician: Christian Bustos DO Financial #: [id number] Pt. Type: A Room/Bed: [facility] Admit/Disch: 11/26/23 05:37:34 - Institution: Case Times PACU II FT Pre-Care Text: Identifies barriers to communication and implements measures to provide psychological support and determines knowledge level Develops individualized plan of care, and ensures continuity of care Maintains patient's dignity and privacy, and maintains patient confidentiality Identifies and reports philosophical, cultural, and spiritual beliefs and values Identifies individual values and wishes concerning care administers prescribed antibiotic therapy and immunizing agents as ordered, Evaluates postoperative tissue perfusion Implements thermoregulation measures, and monitors body temperature Evaluates postoperative respiratory status Evaluates postoperative cardiac status Evaluates postoperative neurological status Assesses pain control, collaborated in initiating patient-controlled analgesia and implements alternative methods of pain control Verifies allergies, administers prescribed medications and solutions, evaluates response to medications Entry 1 In PACU II 11/26/23 09:30:00 Discharge from PACU 11/26/23 13:45:00 II Outcomes Met? Yes Last Modified By: Alonso Osborne RN 11/26/23 14:12:09 Post-Care Text: The patient demonstrates knowledge of the expected response to the operative or invasive procedure The patient's care is consistent with the individualized perioperative plan of care The patient's right to privacy is maintained The patient's value system, lifestyle, ethnicity, and culture are considered, respected, and incorporated into the perioperative plan of care The patient participates in decisions affecting his or her perioperative plan of care. The patient is free from signs and symptoms of infection The patient has wound/tissue perfusion consistent with or improved from baseline levels established preoperatively The patient is at or returning to normothermia at the conclusion of the immediate postoperative period The patient's respiratory function is consistent with or improved from baseline levels established preoperatively The patient's cardiovascular status is consistent with or improved from baseline levels established preoperatively The patient's neurological status is consistent with or improved from baseline levels established preoperatively The patient demonstrates and/or reports adequate pain control throughout the perioperative period The patient received appropriate medication(s), safely administered during the perioperative period Finalized By: Alonso Osborne RN Document Signatures Signed By: Alonso Osborne RN 11/26/23 14:12 Normal [facility] Main OR Preoperative Recordo n 11-26-2023 Main OR Preoperative Record PreOp Document Type FT Summary Primary Physician: Christian Bustos DO Finalized Date/Time: 11/26/23 07:54:00 Pt. Name: PADMINI LLOYD/Sex: 1950 Male Med Rec #: [id number] Physician: Christian Bustos DO Financial #: [id number] Pt. Type: A Room/Bed: [place] [address] Admit/Disch: 11/26/23 05:37:34 - Institution: Case Times PreOp FT Pre-Care Text: Verifies consent for planned procedure, identifies individual values and wishes concerning care, includes family members in perioperative teaching Entry 1 Patient Times. In Pre Surgery 11/26/23 05:55:00 Out Pre Surgery 11/26/23 07:05:00 Outcomes Met? Yes Last Modified By: Carissa Perera RN 11/26/23 07:53:58 Post-Care Text: The patient participates in decisions affecting his or her perioperative plan of care Finalized By: Carissa Perera RN Document Signatures Signed By: Carissa Perera RN 11/26/23 07:54 Normal [facility] Monitor Recordon 11-26-2023 Monitor Record [id number] Normal [facility] Operative Reporton Operative Report SURGERY DATE: 2023 SHUTTLER: Francisco J Reyes C.F.A. PREOPERATIVE DIAGNOSIS: Left hip osteoarthritis POSTOPERATIVE DIAGNOSIS: Left hip osteoarthritis OPERATION: Left hip robotic-assisted total hip arthroplasty using Ruddy, posterolateral approach ANESTHESIA: Fascia iliaca block, spinal ANESTHESIOLOGIST: Spinal as well as fascia iliaca block ESTIMATED BLOOD LOSS: 300 mL INTRAVENOUS FLUIDS: Please see operative record SPECIMEN: Bone and soft tissue COMPLICATIONS: None DRAINS: None IMPLANT: [place] Total Hip System with a size 54 Trident II cluster cup, one 6.5 mm screw measuring 30 mm, a 54 x 36 neutral X3 polyethylene liner; on the femoral side, a size 7 127-degree Accolade II with a 36+0 Biolox femoral head HISTORY/OPERATIVE INDICATIONS: The patient is a 73-year-old white male who presents complaining of pain and difficulty with regard to the left hip. This has been going on for some time. With the continued nature of the symptoms, the patient does decide upon surgical intervention on the left side. The patient does appear to be clinically indicated/cost effective for the same. Please refer to the preoperative progress notes, History and Physical for further details. INTRAOPERATIVE PATHOLOGY: Upon dissection of the left hip from the standard open posterolateral approach, there is noted to be severe degeneration with an osteonecrotic scenario, collapse of the femoral head with fracture of the osteocartilaginous layer. There is significant shortening with significant contracture around the hip. Total hip arthroplasty is done with anglican of limb stability, alignment, and length with the Ruddy robotic platform as described below. The patient did tolerate the procedure well under spinal anesthetic with the fascia iliaca block. The block is requested per myself to aid in intraoperative, perioperative, and postoperative pain management. This does appear to be clinically indicated and cost effective. PROCEDURE: After informed consent is obtained, the risks, complications, reasonable expectations of the above procedure are discussed at length. The patient is taken to the Operating Room, placed on the operating room table in supine position. At this point, the patient is given a spinal anesthetic. The patient is placed in the right lateral decubitus position with the left hip up on the pegboard positioner. Down leg well padded, well-padded axillary roll. The hip is sterilely prepped and draped in the usual surgical fashion at which time the site verification process is undertaken with a time-out procedure. At this point, the Ruddy platform is verified as well. The focus is to the iliac crest array site. A stab incision is made and the first pin is placed. The guide is then utilized to place a second and third pin in the standard fashion. The array is set and registered to the robot. Posterolateral approach to the hip is then utilized. The short external rotators, piriformis tagged and released. Capsule is opened in a T fashion tagging the corners. The femoral checkpoint is placed in the greater trochanter and the limb length is identified with this and the EKG marker over the inferior pole of the patella. At this point, the hip is dislocated. The acetabular labrum is removed and the acetabular checkpoint is placed. The gross checkpoints are then registered with the robot followed by the fine registration within adequate parameters. At this point, the reaming is performed using a 54 reamer and the robotic assistance. Adequate reaming is attained. The osteophytes are then removed. The hip is lavaged with an irrigant and the cup is brought into the field. This is seated using the [employer] robotic assist. Adequate seating is identified. The screws were placed by drilling, measuring for depth and placed individually as described and the final liner is impacted after lavage once again, this is a 54 x 36. At this point, the focus is to the femur. Proximal femur is fully identified. Box osteotome is utilized to open the proximal femur followed by a canal sounder. Broaching is done up to a 7; 7 broach is left in place with good fit and fill. The decision for the 7 stem is made. This is then trialed with a 127-degree neck angle. Adequate trialing is found to be with a 36+0 head. This did correlate with the preoperative plan after testing leg length once again. The decision on the stem is made. The canal is lavaged and the stem is impacted. The Biolox head is impacted over a cleansed, dried trunnion. The hip is located with anglican of limb stability, alignment and the length. The procedure is deemed adequate and complete. The checkpoints are removed individually. Nsydfc-xmzppnu-pzze is utilized for the posterior capsule, piriformis, back to the greater trochanter. Irrisept soak is performed. This was lavaged away. While the soak is being performed, the pelvic array site is removed. The pins are removed. The wounds are irrigated. The hip is injected with 2 gm of tranexamic acid. Posterior capsu (more content not included)... Normal [facility] Comment on above: Result Comment: Elec tronically Signed By: Christian Bustos DO\Date and Time Signed: 11/26/23 14:09 EDT PT & PTTon 11-26-2023 aPTT Coag (PPP) [Time] 35.3 second(s) Normal 25.1-36.5 [facility] Comment on above: Result Comment: Para meter 15 days - 4 weeks 1 - 5 months 6 - 11 months 1 - 5 years 6 - 10 years 11 - 17 years PTT Mean: 35.4 (27.6-45.6) Mean: 33.5 (24.8-40.7) Mean: 32.4 (25.1-40.7) Mean: 31.6 (24.0-39.2) Mean: 31.6 (26.9-38.7) Mean: 31.0 (24.6-38.4) Pediatric Reference ranges were obtained from a study by vin Zhou al. prepared from 1437 samples obtained at 7 different centers using the same coagulation reagent and instrumentation as [facility]. Currently there are no coagulation studies available worldwide for children to 14 days, and no normal ranges. Heparin therapeutic range (represented by Anti-Factor Xa activity of 0.2 - 0.4 U/mL) corresponds to PTT of 56.6 - 109.0 sec. Performed By: #### 1 [id number] #### [facility] [address] [place] [address] INR Coag (PPP) [Relative time] 1.17 {INR} Invalid Interpretation Code [facility] Comment on above: Result Comment: INR results are specifically intended to assess patients stabilized on long-term Anticoagulation therapy suggested INR?s ?Less Intensive Anticoagulation? 2.0 ? 3.0 Conventional Range 3.0 ? 4.5 Performed By: #### 1 [id number] #### [facility] [address] [place] [address] PT Coag (PPP) [Time] 13.1 second(s) High 9.4-12.5 [facility] Comment on above: Result Comment: 15 d ays - 4 weeks 1 - 5 months 6 -11 months 1- 5 years 6-10 years 11 -17 years Mean: 11.2 (9.5-12.6) Mean: 11.0 (9.7-12.8) Mean: 11.0 (9.8-13.0) Mean: 11.3 (9.9-13.4) Mean: 11.7 (10.0-14.6) Mean: 11.8 (10.0 - 14.1) Pediatric Reference ranges were obtained from a study by Micha Mckeon et al. prepared from 1437 samples obtained at 7 different centers using the same coagulation reagent and instrumentation as [facility]. Currently there are no coagulation studies available worldwide for children to 14 days, and no normal ranges. Performed By: #### 1 [id number] #### [facility] [address] [place] [address] Patient Education - Texton 0 11-26-2023 Patient Education - Text Pulmonary Medicine How to Use an Incentive Spirometer An incentive spirometer is a tool that measures how well you are filling your lungs with each breath. Learning to take long, deep breaths using this tool can help you keep your lungs clear and active. This may help to reverse or lessen your chance of developing breathing (pulmonary) problems, especially infection. You may be asked to use a spirometer: ? After a surgery. ? If you have a lung problem or a history of smoking. ? After a long period of time when you have been unable to move or be active. If the spirometer includes an indicator to show the highest number that you have reached, your health care provider or respiratory therapist will help you set a goal. Keep a log of your progress as told by your health care provider. What are the risks? ? Breathing too quickly may cause dizziness or cause you to pass out. Take your time so you do not get dizzy or light-headed. ? If you are in pain, you may need to take pain medicine before doing incentive spirometry. It is harder to take a deep breath if you are having pain. How to use your incentive spirometer 1. Sit up on the edge of your bed or on a chair. 2. Hold the incentive spirometer so that it is in an upright position. 3. Before you use the spirometer, breathe out normally. 4. Place the mouthpiece in your mouth. Make sure your lips are closed tightly around it. 5. Breathe in slowly and as deeply as you can through your mouth, causing the piston or the ball to rise toward the top of the chamber. 6. Hold your breath for 3?5 seconds, or for as long as possible. ? If the spirometer includes a head tennis coach indicator, use this to guide you in breathing. Slow down your breathing if the indicator goes above the marked areas. 7. Remove the mouthpiece from your mouth and breathe out normally. The piston or ball will return to the bottom of the chamber. 8. Rest for a few seconds, then repeat the steps 10 or more times. ? Take your time and take a few normal breaths between deep breaths so that you do not get dizzy or light-headed. ? Do this every 1?2 hours when you are awake. 9. If the spirometer includes a goal marker to show the highest number you have reached (best effort), use this as a goal to work toward during each repetition. 10. After each set of 10 deep breaths, cough a few times. This will help to make sure that your lungs are clear. ? If you have an incision on your chest or abdomen from surgery, place a pillow or a rolled-up towel firmly against the incision when you cough. This can help to reduce pain while taking deep breaths and coughing. General tips ? When you are able to get out of bed: ? Walk around often. ? Continue to take deep breaths and cough in order to clear your lungs. ? Keep using the incentive spirometer until your health care provider says it is okay to stop using it. If you have been in the hospital, you may be told to keep using the spirometer at home. Contact a health care provider if: ? You are having difficulty using the spirometer. ? You have trouble using the spirometer as often as instructed. ? Your pain medicine is not giving enough relief for you to use the spirometer as told. ? You have a fever. Get help right away if: ? You develop shortness of breath. ? You develop a cough with bloody mucus from the lungs. ? You have fluid or blood coming from an incision site after you cough. Summary ? An incentive spirometer is a tool that can help you learn to take long, deep breaths to keep your lungs clear and active. ? You may be asked to use a spirometer after a surgery, if you have a lung problem or a history of smoking, or if you have been inactive for a long period of time. ? Use your incentive spirometer as instructed every 1?2 hours while you are awake. ? If you have an incision on your chest or abdomen, place a pillow or a rolled-up towel firmly against your incision when you cough. This will help to reduce pain. ? Get help right away if you have shortness of breath, you cough up bloody mucus, or blood comes from your incision when you cough. This information is not intended to replace advice given to you by your health care provider. Make sure you discuss any questions you have with your health care provider. Document Revised: 10/10/2020 Document Reviewed: 10/10/2020 [employer] Patient Education ? 2022 [employer]. [place], [place] [facility] DISCHARGE INSTRUCTIONS HIP REPLACEMENT ARTHROPLASTY Posterior Lateral Approach INCISION CARE: Continue the daily dressing care to the hip as instructed in the hospital for 7 days postoperatively. The dressing will then be changed and worn an additional 7 days. You may then discontinue the dressing changes. The dressing over the upper pelvis area may be (more content not included)... Normal [facility] Progress Note-Physicianon Progress Note-Physician Patient: PADMINI LOLYD Age: 73 years Sex: Male : 1950 Associated Diagnoses: None Author: Christian Bustos DO Postoperative Information Procedure: L RA PRATEEK Preoperative Diagnosis: L hip OA, AVN. Postoperative Diagnosis: same. Performed by: rey. Tire Shop Manager: Jennifer Reyes. Specimens Removed: bone, soft tissue. Prosthesis: Dejan. . Estimated Blood Loss: 300 ml. Complications: None. Anesthesia type: Spinal, fascia iliaca block. Normal [facility] Comment on above: Result Comment: Elec tronically Signed By: Christian Bustos DO\.br\Date and Time Signed: 11/26/23 08:58 EDT C Urineon 11-16-2023 Bacteria identified Cx Nom (U) Microbiology PROCEDURE: Urine Culture [R1] SOURCE: U CleanCatch BODY SITE: COLLECTED DATE/TIME: 11/14/2023 14:34 EDT RECEIVED DATE/TIME: 11/14/2023 18:22 EDT START DATE/TIME: 11/14/2023 18:22 EDT FREE TEXT SOURCE: ESMER MENDOZA PA-C, PA-C, JENNIFER E FINAL REPORTS Final Report [] Verified Date/Time: 11/16/2023 11:35 EDT 500 cfu/ml Mixed skin contaminants Performing Locations R1: This test was performed at: [facility], [address] [place] [address], [id number] , [facility] Comment on above: Performed By: #### 2 [id number] #### [facility] [address] [place] [id number] Lab Reportson 11-15-2023 Lab Reports [id number] [facility] Screenson 11-15-2023 Screens [id number] Normal [facility] Screens [id number] [facility] Urology Office/Clinic Noteon 11-15-2023 Urology Office/Clinic Note Chief Complaint Pt is here for 6 month f/u HPI Staff 73 year old male here for 6 month F/U. Previous DX: H/O UTI, bladder neck contracture, H/O prostate cancer, asymptomatic micro hematuria and bladder stones. S/P Cysto/UD 02/08/22, Cysto Litholapaxy of BNC and fulguration of prostate done 03/14/22, Cysto/TURP/holmium laser ablation bladder neck/bladder outlet calcifications 05/20/23 and Brachytherapy 11/28/16. Dysuria: mild burn Incomplete bladder emptying: denies Hematuria: denies Frequency: 4x a day Urgency: denies Nocturia: every 2 hours Stream: steady stream sometimes spraying Leaking: denies Post void dripping: denies Wearing pads/ Depends: yes wears pads Urge incontinence: denies Stress incontinence: yes bending or lifting Incontinence without Sensory Awareness: denies Abdominal pain: denies Flank pain: denies Sexual complaints: _ History of Present Illness staff HPI reviewed and agree. Review of Systems PHQ Score Initial Depression Screen Score: 0 SCORE no fever, chills, malaise, myalgia. no rash/lesions. no chest pain, palpitations, or SOB. no abdominal pain, nausea, vomiting. no unilateral calf swelling, redness, pain Physical Exam Vitals & Measurements T: 37 ?C(Oral) HR: 71(Peripheral) RR: 16 BP: 139/83 HT: 72 in HT: 183 cm WT: 108 kg WT: 237.6 lb BMI: 32.25 General: nontoxic, NAD Mouth: moist mucosa Lungs: normal respiratory effort Cardio: regular rate, good distal perfusion Abdomen: nondistended, no suprapubic distention or tenderness, no CVA tenderness Neurologic: Grossly normal Skin: No rashes or suspicious lesions Assessment/Plan Dr. Giposn pt CLAIR 1, not addressed today. 1. UTI symptoms (R39.9: Unspecified symptoms and signs involving the genitourinary system) Has upcoming hip surgery on 11/26/[address] Bustos. States LUTS have worsened in the last 2 months. has burning that comes and goes, getting up more at night, stream spraying sometimes. UCx 11/11/23 - no growth. UA showed >75 WBC and 4-20 RBC. UA today shows small blood and small leuks, no nitrites. Discussed recent urine culture was negative and should not cause his hip surgery to be postponed. Per pt request, will send today's urine for repeat cx to be certain. Will call him w results. Counseled pt on possible etiologies of increased WBC count in pt's urine including inflammatory processes secondary to urethral stricture vs dystrophic calcifications vs other. May need a repeat urethral dilation vs laser litho of calcs. Spoke w Dr Gipson, there isn't enough time to see pt for cysto and then treat prior to his upcoming hip surgery, and there's no guarantee it will change the outcome/risks of post-op retention. Therefore will start toyna-op Flomax once daily to relax prostate, hopefully this will help a little. Pt will call once he has healed a bit from hip surgery and we will schedule him for IO cysto. -Consider Cysto with possible UD. The procedure risks, benefits, details, and treatment alternatives have been discussed with the patient. These include bleeding, infection, recurrent scar in over 50%, need for repeat dilation or other procedures, no symptom relief with dilation, among others. Full informed consent has been obtained. Will order Local anesthesia. 2. 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 Showed bladder neck contracture and a calculus right at the bladder neck. S/p Cysto/Litholapaxy of BNC & fulguration of prostate done 03/14/22 for bladder neck contracture and calculus. S/p Cysto/TURP/holmium laser ablation bladder neck/bladder outlet calcifications 05/20/23 - Path report was negative. [1] IPSS 10 (3). see #1 3. H/O prostate cancer (Z85.46: Personal history of malignant neoplasm of prostate) S/P Brachytherapy done 11/28/16. PSA remains undetectable. Still following w Dr Garcia for hx lymphoma. PSA: 06/21/21 - 0.1 11/13/21 - 0.03 08/21/22 - 0.02 08/28/23 - <0.02 4. Bladder stones (N21.0: Calculus in bladder) No hx of kidney stones. Has had 2 bladder stones in the past, with sx of spraying stream. KUB 05/31/23 - no stones noted. -Cont increased fluid intake Total time spent reviewing previous notes/results/external documents, preparing the chart, conducting the encounter with the patient and family, ordering tests/medications, and documenting the encounter was 40 minutes. Follow-up With When Contact Information MARQUIS GARCIA, ESMER Grady, URL [address] [place] [address] [phone] Additional Instructions: pt to be called, sched cysto w/ possible UD Patient Education Cystoscopy Urinary Tract Infection, Adult, [id number] Documentation recorded by the scribe _ accurately reflects the services(s) I performed and decisions made by me. Authenticated by Esmer Mendoza PA-C on 11/15/2023 09:38:02. Shantel Pleitez, personally scribed for Esmer Mendoza PA-C on (more content not included)... Normal [facility] Comment on above: Result Comment: Elec tronically Signed By: ESMER MENDOZA PA-C\.br\Date and Time Signed: 11/15/23 09:40 EDT\.br\Electronically Co-Signed By: Shantel Moy\.br\Date and Time Co-Signed: 11/14/23 13:23 EDT Ambulatory Visit Summaryon 0 11-14-2023 Ambulatory Visit Summary PADMINI LLOYD :1950 Visit Date:11/14/2023 Ambulatory Visit Instructions Your Diagnosis UTI symptoms Bladder neck contracture H/O prostate cancer Bladder stones Your Care Team Attending Physician - ESMER MENDOZA PA-C Primary Care Physician - JUANA CALIX, JARRED Rice This Is Your Medications List Contact prescribing physician if questions or concerns cyanocobalamin (Vitamin B12) ergocalciferol (Vitamin D) losartan (losartan 100 mg Tab) magnesium gluconate (magnesium gluconate 250 mg oral tablet) multivitamin with minerals (One A Day Men 50 Plus) nebivolol (nebivolol 10 mg Tab) warfarin (warfarin 6 mg Tab) zinc sulfate (Zinc) Procedures Performed TURP - Transurethral resection of prostate (05/20/2023), Litholapaxy of bladder calculus (03/14/2022), Cystourethroscopy with dilation of urethral stricture (02/08/2022), Cystoscopy (08/24/2020), Endoscopic transurethral electrovaporization of prostate (05/15/2017), Transrectal biopsy of prostate using ultrasound (US) guidance (09/07/2016), Brachytherapy (2016), Colonoscopy. Discharge Vitals Temperature (Oral) 37 ?C Heart Rate (Peripheral) 71 Respiratory Rate 16 Blood Pressure 139/83 Height 183 cm Height 72 in Weight 108 kg Weight 237.6 lb BMI 32.25 What to do next Scheduled Follow-Up Appointments Saturday 7:30 AM EDT Where: [facility] You Need to Schedule the Following Appointments Follow Up with MARQUIS GARCIA, EDISON FLORES When: Comments: pt to be called, sched cysto w/ possible UD Where: [address] [address] [phone] Medications What How Much When Instructions Unchanged cyanocobalamin (Vitamin B12) 500 Microgram By Mouth Saturday & Contact prescribing physician if questions or concerns Unchanged ergocalciferol (Vitamin D) 50,000 International unit By Mouth Every day Contact prescribing physician if questions or concerns Unchanged losartan (losartan 100 mg Tab) 1 Tablets By Mouth Every day Contact prescribing physician if questions or concerns Unchanged magnesium gluconate (magnesium gluconate 250 mg oral tablet) 1 Tablets By Mouth Every day Contact prescribing physician if questions or concerns Unchanged multivitamin with minerals (One A Day Men 50 Plus) 1 tab By Mouth Every day Contact prescribing physician if questions or concerns Unchanged nebivolol (nebivolol 10 mg Tab) 1 Tablets By Mouth Every day Contact prescribing physician if questions or concerns Unchanged warfarin (warfarin 6 mg Tab) 1 Tablets By Mouth Every day Contact prescribing physician if questions or concerns Unchanged zinc sulfate (Zinc) 25 Milligram By Mouth Every day Contact prescribing physician if questions or concerns Medications and Immunizations Administered Not Given influenza virus vaccine, inactivated, Postpone due to refusal Allergies Avelox (Hallucinations) Bactrim (History of kidney problems) moxifloxacin (Mental Status Change) quinolone antibiotics (Mental status change) sulfamethoxazole-trimethop rim (Unknown) Problems Ongoing - Any problem that you are currently receiving treatment for. Anticoagulated Asymptomatic microscopic hematuria Bladder neck contracture Bladder stones BPH with urinary obstruction DVT (deep venous thrombosis) Dysuria H/O prostate cancer History of UTI Hypertension Kidney stones Microscopic hematuria Nocturia Poor urinary stream Stress incontinence, male Urinary urgency Urine frequency UTI (urinary tract infection) UTI symptoms Patient Survey You may receive a survey via text or e-mail asking about your office visit. Please share your experience with us by completing your survey. We appreciate your feedback and thank you for choosing us for your care. Education Materials Cystoscopy Cystoscopy is a procedure that is used to help diagnose and sometimes treat conditions that affect the lower urinary tract. The lower urinary tract includes the bladder and the urethra. The urethra is the tube that drains urine from the bladder. Cystoscopy is done using a thin, tube-shaped instrument with a light and camera at the end (cystoscope). The cystoscope may be hard or flexible, depending on the goal of the procedure. The cystoscope is inserted through the urethra, into the bladder. Cystoscopy may be recommended if you have: ? Urinary tract infections that keep coming back. ? Blood in the urine (hematuria). ? An inability to control when you urinate (urinary incontinence) or an overactive bladder. ? Unusual cells found in a urine sample. ? A blockage in the urethra, such as a urinary stone. ? Painful urination. ? An abnormality in the bladder found during an intravenous pyelogram (IVP) or CT scan. Cystoscopy may also be done to remove a sample of tissue to be examined under a microscope (biopsy). Tell a health care provider about: (more content not included)... Normal [facility] CT Lower Extremity w/o Contr ast Lefton 11-14-2023 CT Lower Extremity w/o Contrast Left Exam Date/Time: 11/11/2023 11:33 EDT Reason for Exam: LEFT HIP OA Report IMPRESSION: CT FOR HIP PROSTHESIS CREATION. 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 EXAM: CT Lower Extremity w/o Contrast Left DATE: 11/11/2023 11:27 AM CLINICAL HISTORY: LEFT HIP OA. COMPARISON: Outside radiographs 11/01/2023. TECHNIQUE: Spiral unenhanced imaging was obtained of the left lower extremity for prosthesis creation, using Ruddy protocol. All CT scans at this facility use dose modulation, iterative reconstruction, and/or weight based dosing when appropriate to reduce radiation dose to as low as reasonably achievable. FINDINGS: Stage IV avascular necrosis of the femoral head is present with moderately advanced degenerative changes of the weightbearing portion of the left hip joint. Minimal to mild osteoarthritic changes are present of the right hip and sacroiliac joints. Moderate degenerative changes are present of the visualized lower lumbar spine and lumbosacral junction. Brachytherapy seeds within an otherwise unremarkable appearing prostate gland. Small fat-containing bilateral inguinal hernias. Minimal calcified atherosclerotic plaquing of the distal abdominal aorta and common iliac arteries. Additional imaging of the pelvis and both knees is otherwise noncontributory. Ordering Provider: Christian Bustos FINAL REPORT Dictated: 11/14/2023 3:38 pm Brannon Nieves MD Signed (Electronic Signature): 11/14/2023 3:38 pm Signed by: Brannon Nieves MD Transcribed by: EDI Technologist: CL Tamez [facility] Patient Educationon 11-14-19 Patient Education Obstetrics and Gynec ology Urinary Tract Infection, Adult A urinary tract infection (UTI) is an infection of any part of the urinary tract. The urinary tract includes: ? The kidneys. ? The ureters. ? The bladder. ? The urethra. These organs make, store, and get rid of pee (urine) in the body. What are the causes? This infection is caused by germs (bacteria) in your genital area. These germs grow and cause swelling (inflammation) of your urinary tract. What increases the risk? The following factors may make you more likely to develop this condition: ? Using a small, thin tube (catheter) to drain pee. ? Not being able to control when you pee or poop (incontinence). ? Being female. If you are female, these things can increase the risk: ? Using these methods to prevent : ? A medicine that kills sperm (spermicide). ? A device that blocks sperm (diaphragm). ? Having low levels of a female hormone (estrogen). ? Being . You are more likely to develop this condition if: ? You have genes that add to your risk. ? You are sexually active. ? You take antibiotic medicines. ? You have trouble peeing because of: ? A prostate that is bigger than normal, if you are male. ? A blockage in the part of your body that drains pee from the bladder. ? A kidney stone. ? A nerve condition that affects your bladder. ? Not getting enough to drink. ? Not peeing often enough. ? You have other conditions, such as: ? Diabetes. ? A weak disease-fighting system (immune system). ? Sickle cell disease. ? Gout. ? Injury of the spine. What are the signs or symptoms? Symptoms of this condition include: ? Needing to pee right away. ? Peeing small amounts often. ? Pain or burning when peeing. ? Blood in the pee. ? Pee that smells bad or not like normal. ? Trouble peeing. ? Pee that is cloudy. ? Fluid coming from the vagina, if you are female. ? Pain in the belly or lower back. Other symptoms include: ? Vomiting. ? Not feeling hungry. ? Feeling mixed up (confused). This may be the first symptom in older adults. ? Being tired and grouchy (irritable). ? A fever. ? Watery poop (diarrhea). How is this treated? ? Taking antibiotic medicine. ? Taking other medicines. ? Drinking enough water. In some cases, you may need to see a specialist. Follow these instructions at home: Medicines ? Take lcyu-kpq-lekjrma and prescription medicines only as told by your doctor. ? If you were prescribed an antibiotic medicine, take it as told by your doctor. Do not stop taking it even if you start to feel better. General instructions ? Make sure you: ? Pee until your bladder is empty. ? Do not hold pee for a long time. ? Empty your bladder after sex. ? Wipe from front to back after peeing or pooping if you are a female. Use each tissue one time when you wipe. ? Drink enough fluid to keep your pee pale yellow. ? Keep all follow-up visits. Contact a doctor if: ? You do not get better after 1?2 days. ? Your symptoms go away and then come back. Get help right away if: ? You have very bad back pain. ? You have very bad pain in your lower belly. ? You have a fever. ? You have chills. ? You feeling like you will vomit or you vomit. Summary ? A urinary tract infection (UTI) is an infection of any part of the urinary tract. ? This condition is caused by germs in your genital area. ? There are many risk factors for a UTI. ? Treatment includes antibiotic medicines. ? Drink enough fluid to keep your pee pale yellow. This information is not intended to replace advice given to you by your health care provider. Make sure you discuss any questions you have with your health care provider. Document Revised: 03/03/2021 Document Reviewed: 03/03/2021 [employer] Patient Education ? 2022 [employer] Urology Cystoscopy Cystoscopy is a procedure that is used to help diagnose and sometimes treat conditions that affect the lower urinary tract. The lower urinary tract includes the bladder and the urethra. The urethra is the tube that drains urine from the bladder. Cystoscopy is done using a thin, tube-shaped instrument with a light and camera at the end (cystoscope). The cystoscope may be hard or flexible, depending on the goal of the procedure. The cystoscope is inserted through the urethra, into the bladder. Cystoscopy may be recommended if you have: ? Urinary tract infections that keep coming back. ? Blood in the urine (hematuria). ? An inability to control when you urinate (urinary incontinence) or an overactive bladder. ? Unusual cells found in a urine sample. ? A blockage in the urethra, such as a urinary stone. ? Painful urination. ? An abnormality in the bladder found during an intravenous pyelogram (IVP) or CT scan. Cystoscopy may also be done to remove a sample of tissue to be examined under a microscope (more content not included)... Normal [facility] C Urineon 11-13-2023 Bacteria identified Cx Nom (U) Microbiology PROCEDURE: Urine Culture [R1] SOURCE: U CleanCatch BODY SITE: COLLECTED DATE/TIME: 11/11/2023 11:01 EDT RECEIVED DATE/TIME: 11/11/2023 13:35 EDT START DATE/TIME: 11/11/2023 13:35 EDT FREE TEXT SOURCE: Christian Bustos DO, DO, Christian Carmona FINAL REPORTS Final Report [] Verified Date/Time: 11/13/2023 06:45 EDT No growth at 2 days. Performing Locations R1: This test was performed at: [facility], [address] [place] [address], [id number] , , [facility] Comment on above: Performed By: #### 4 [id number] #### [facility] [address] [place] [address] Consent for Procedure/Surger yon 11-13-2023 Consent for Procedure/Surgery [id number] Normal [facility] CNPRenee 11-12-2023 CNPN Telephone ([facility]) -- GABINOPADMINI ([id number]) 1950 M Date Time Provider Department 11/12/23 Marko GARCIA During your visit today, we recorded the following information about you: Jan Reynaga Leo 11/12/2023 9:33 AM Signed Called patient to schedule his MRI orbit, [facility] has also called patient mutiple times, stated he was not going to get this done he is having Hip surgery... he told me he would call us back for appointment when everything is over with that... also stated he had a CT scan didn't think he needed this MRI FYI Allergies As of Date: 11/12/2023 Noted Allergy Reaction AVELOX (MOXIFLOXACIN HCL) 10/23/2016 1 - Mental Status Change BACTRIM (SULFAMETHOXAZOLE-TRIMETH* 07/16/2018 1 - Mental Status Change 14 - Other: See Comments Comments: Renal Failure QUINOLONES 07/11/2021 14 - Other: See Comments Comments: Confusion SULFA (SULFONAMIDE ANTIBIOTICS) 07/11/2021 14 - Other: See Comments Comments: Abdomin pain Date Reviewed: 09/18/2023 Reviewed by: Aashish Benoit LPN - Fully Assessed Reason for Visit: Appointment Confirmation [[id number]] Prescriptions as of 11/12/2023 - nebivolol (BYSTOLIC) 10 mg tablet Take 10 mg by mouth every morning. - ZINC ORAL Take 25 mg by mouth. - Magnesium 250 mg tab Take 250 mg by mouth. - nebivolol (BYSTOLIC) 10 mg tablet Take 10 mg by mouth every morning. - losartan (COZAAR) 100 mg tablet Take 100 mg by mouth once daily. - cyanocobalamin (VITAMIN B-12) 1,000 mcg tab Take 1,000 mcg by mouth two times a week. - warfarin sodium (WARFARIN ORAL) Take by mouth daily as directed. As Directed - ergocalciferol, vitamin D2, (VITAMIN D2 ORAL) Take by mouth. - Multivitamin capsule Take 1 capsule by mouth once daily. 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 Report IMPRESSION: NO RADIOGRAPHIC EVIDENCE OF ACTIVE DISEASE IN THE CHEST. CLINICAL INFORMATION: P.A.T. COMPARISON: None available. FINDINGS: Two views of the chest were obtained. Heart and mediastinum appear normal. The lungs appear clear. Visualized bony thorax and remainder of the chest appears unremarkable. Ordering Provider: Vincent Gunderson FINAL REPORT Dictated: 11/12/2023 5:29 pm Juan Red MD Signed (Electronic Signature): 11/12/2023 5:29 pm Signed by: Juan Red MD Transcribed by: EDI Technologist: HUNTER Technical Comments Radiation Dose: Ka,r in mGy = na DAP = na Normal [facility] ABO/Rh Retypeon 11-11-2023 ABO/Rh Retype Interp Positive Invalid Interpretation Code [facility] Comment on above: Performed By: #### 1 [id number] ####[facility] [id number] [place] [address] BLOOD BANKOrdered By: Peggy Elder on 11-11-2023 ABO/Rh Retype Interp Positive Invalid Interpretation Code [facility] BB Subsection CBC w/ Auto Diffon 4 Basophils/100 WBC (Bld) 0.2 % Normal 0.0-2.0 [facility] Comment on above: Performed By: #### 2 [id number] ####[facility] [address] [address] Basophils/Leukocytes Auto (Bld) [Pure # fraction] 0.0 E9/L Normal 0.0-0.2 [facility] Comment on above: Performed By: #### 2 [id number] ####[address] [address] Eosinophils (Bld) [#/Vol] 0.0 E9/L Normal 0.0-0.5 [facility] Comment on above: Performed By: #### 2 [id number] ####[address] [address] Eosinophils/100 WBC (Bld) 0.7 % Normal 0.0-8.0 [facility] Comment on above: Performed By: #### 2 [id number] ####[address] [address] Erythrocyte distribution width (RBC) [Ratio] 14.5 % High 10.9-14.2 [facility] Comment on above: Performed By: #### 2 [id number] ####[address] [address] Hematocrit (Bld) [Volume fraction] 45.2 % Normal 37.7-49.0 [facility] Comment on above: Performed By: #### 2 [id number] ####[address] [address] Hemoglobin (Bld) [Mass/Vol] 15.5 g/dL Normal 13.5-17.5 [facility] Comment on above: Performed By: #### 2 [id number] ####[address] [address] Lymphocytes (Bld) [#/Vol] 1.5 E9/L Normal 1.0-4.0 [facility] Comment on above: Performed By: #### 2 [id number] ####[address] [address] Lymphocytes/100 WBC (Bld) 30.0 % Normal 14.0-50.0 [facility] Comment on above: Performed By: #### 2 [id number] ####[address] [address] MCH (RBC) [Entitic mass] 30.3 pg Normal 27.0-34.0 [facility] Comment on above: Performed By: #### 2 [id number] ####[address] [address] MCHC (RBC) [Mass/Vol] 34.2 g/dL Normal 31.4-36.0 [facility] Comment on above: Performed By: #### 2 [id number] ####[address] [address] MCV (RBC) [Entitic vol] 88.6 fL Normal 80.0-100.0 [facility] Comment on above: Performed By: #### 2 082605 ####[address] [address] Monocytes (Bld) [#/Vol] 0.5 E9/L Normal 0.2-1.0 [facility] Comment on above: Performed By: #### 2 215237 ####[address] [address] Neutrophils (Bld) [#/Vol] 3.0 E9/L Normal 2.0-7.5 [facility] Comment on above: Performed By: #### 2 090137 ####[address] [address] Neutrophils/100 WBC (Bld) 58.5 % Normal 36.0-75.0 [facility] Comment on above: Performed By: #### 2 [id number] ####[address] [address] Platelet 233.0 E9/L Normal 150.0-500. 0 [facility] Comment on above: Performed By: #### 2 305690 ####[address] [address] Platelet mean volume (Bld) [Entitic vol] 7.4 fL Normal 6.4-10.8 [facility] Comment on above: Performed By: #### 2 [id number] ####[facility] [address] [place] [address] RBC (Bld) [#/Vol] 5.1 E12/L Normal 4.3-5.9 [facility] Comment on above: Performed By: #### 2 165781 ####[facility] [id number] [place] [address] WBC corrected for nucl RBC Auto (Bld) [#/Vol] 5.2 E9/L Normal 4.0-11.0 [facility] Comment on above: Performed By: #### 2 946660 ####[facility] [id number] [place] [address] CHEMISTRYOrdered By: SYSTEM SYSTEM on 11-11-2023 Albumin [Mass/Vol] 3.8 g/dL Normal 3.3 - 5.0 gm/dL [facility] Albumin/Globulin [Mass ratio] 1.3 {ratio} Normal 1.1 - 2.2 [facility] ALP [Catalytic activity/Vol] 114 [iU]/d High 21 - 98 Int._Unit/ L [facility] ALT No additional P-5'-P [Catalytic activity/Vol] 14 [iU]/d Normal 6 - 46 Int._Unit/ L [facility] Anion gap [Moles/Vol] 10 mmol/L Normal 6 - 16 mEq/L [facility] AST [Catalytic activity/Vol] 15 [iU]/d Normal 5 - 43 Int._Unit/ L [facility] Bilirubin [Mass/Vol] 0.6 mg/dL Normal 0.0 - 1 .1 mg/dL [facility] Calcium [Mass/Vol] 9.1 mg/dL Normal 8.9 - 11. 1 mg/dL [facility] Chloride [Moles/Vol] 109 mmol/L Normal 101 - 1 11 mmol/L [facility] CO2 [Moles/Vol] 25 mmol/L Normal 21 - 31 mmol/L [facility] Creatinine [Mass/Vol] 1.0 mg/dL Normal 0.5 - 1.3 mg/dL [facility] eGFR 80 mL/min/1.73 m2 Normal >=59mL/min /1.73 m2 [facility] Globulin (S) [Mass/Vol] 2.9 g/dL Normal 1.4 - 4.0 gm/dL [facility] Glucose [Mass/Vol] 91 mg/dL Normal 55 - 199 mg/dL [facility] Potassium [Moles/Vol] 3.9 mmol/L Normal 3.5 - 5.3 mmol/L [facility] Protein [Mass/Vol] 6.7 g/dL Normal 6.0 - 7.8 gm/dL [facility] Sodium [Moles/Vol] 140 mmol/L Normal 135 - 145 mmol/L [facility] Urea nitrogen [Mass/Vol] 19 mg/dL Normal 5 - 21 mg/dL [facility] Urea nitrogen/Creatinine [Mass ratio] 19 mg/mg Normal 10 - 20 [facility] CMPon 11-11-2023 Albumin [Mass/Vol] 3.8 g/dL Normal 3.3-5.0 [facility] Comment on above: Performed By: #### 2 [id number], [id number] #### [facility] [address] [place] [address] Albumin/Globulin (S) [Mass conc ratio] 1.3 Normal 1.1-2.2 [facility] Comment on above: Performed By: #### 2 615939, [id number] #### [facility] [address] [place] [address] ALP [Catalytic activity/Vol] 114 Int._Unit/L High 21-98 [facility] Comment on above: Performed By: #### 2 801100, [id number] #### [facility] [address] [place] [address] ALT No additional P-5'-P [Catalytic activity/Vol] 14 Int._Unit/L Normal 6-46 [facility] Comment on above: Performed By: #### 2 557278, [id number] #### [facility] [address] [place] [address] Anion gap [Moles/Vol] 10 mmol/L Normal 6-16 [facility] Comment on above: Performed By: #### 2 715733, [id number] #### [facility] [address] [place] [address] AST [Catalytic activity/Vol] 15 Int._Unit/L Normal 5-43 [facility] Comment on above: Performed By: #### 2 878785, [id number] #### [facility] [address] [place] [address] Bilirubin [Mass/Vol] 0.6 mg/dL Normal 0.0-1.1 [facility] Comment on above: Performed By: #### 2 022853, [id number] #### [facility] [address] [place] [address] Calcium [Mass/Vol] 9.1 mg/dL Normal 8.9-11.1 [facility] Comment on above: Performed By: #### 2 005595, [id number] #### [facility] [address] [place] [address] Chloride [Moles/Vol] 109 mmol/L Normal 101-111 [facility] Comment on above: Performed By: #### 2 422227, [id number] #### [facility] [address] [place] [address] CO2 [Moles/Vol] 25 mmol/L Normal 21-31 [facility] Comment on above: Performed By: #### 2 037296, [id number] #### [facility] [address] [place] [address] Creatinine [Mass/Vol] 1.0 mg/dL Normal 0.5-1.3 [facility] Comment on above: Performed By: #### 2 094579, [id number] #### [facility] [address] [place] [address] Globulin (S) [Mass/Vol] 2.9 g/dL Normal 1.4-4.0 [facility] Comment on above: Performed By: #### 2 411946, [id number] #### [facility] [address] [place] [address] Glucose [Mass/Vol] 91 mg/dL Normal 55-199 [facility] Comment on above: Performed By: #### 2 427780, [id number] #### [facility] [address] [place] [address] Potassium [Moles/Vol] 3.9 mmol/L Normal 3.5-5.3 [facility] Comment on above: Performed By: #### 2 013300, [id number] #### [facility] [address] [place] [address] Protein [Mass/Vol] 6.7 g/dL Normal 6.0-7.8 [facility] Comment on above: Performed By: #### 2 099127, [id number] #### [facility] [address] [place] [address] Sodium [Moles/Vol] 140 mmol/L Normal 135-145 [facility] Comment on above: Performed By: #### 2 475640, [id number] #### [facility] [address] [place] [address] Urea nitrogen [Mass/Vol] 19 mg/dL Normal 5-21 [facility] Comment on above: Performed By: #### 2 110322, [id number] #### [facility] [address] [place] [address] Urea nitrogen/Creatinine [Mass ratio] 19 No Units Normal 10-20 [facility] Comment on above: Performed By: #### 2 285546, [id number] #### [facility] [address] [place] [address] Consent for Treatmenton Consent for Treatment [id number] Normal [facility] HEMATOLOGYOrdered By: SYSTEM SYSTEM on 11-11-2023 Basophils/100 WBC (Bld) 0.2 % Normal 0.0 - 2.0 % [facility] Basophils/Leukocytes Auto (Bld) [Pure # fraction] 0.0 E9/L Normal 0.0 - 0.2 E9/L [facility] Eosinophils (Bld) [#/Vol] 0.0 E9/L Normal 0.0 - 0.5 E9/L [facility] Eosinophils/100 WBC (Bld) 0.7 % Normal 0.0 - 8.0 % [facility] Erythrocyte distribution width (RBC) [Ratio] 14.5 % High 10.9 - 14.2 % [facility] Hematocrit (Bld) [Volume fraction] 45.2 % Normal 37.7 - 49.0 % [facility] Hemoglobin (Bld) [Mass/Vol] 15.5 g/dL Normal 13.5 - 17.5 gm/dL [facility] Lymphocytes (Bld) [#/Vol] 1.5 E9/L Normal 1.0 - 4.0 E9/L [facility] Lymphocytes/100 WBC (Bld) 30.0 % Normal 14.0 - 50.0 % [facility] MCH (RBC) [Entitic mass] 30.3 pg Normal 27.0 - 34.0 pg [facility] MCHC (RBC) [Mass/Vol] 34.2 g/dL Normal 31.4 - 36.0 gm/dL [facility] MCV (RBC) [Entitic vol] 88.6 fL Normal 80.0 - 100.0 fL [facility] Monocytes (Bld) [#/Vol] 0.5 E9/L Normal 0.2 - 1.0 E9/L [facility] Monocytes/100 WBC (Bld) 10.6 % Normal 4.0 - 14.0 % [facility] Neutrophils (Bld) [#/Vol] 3.0 E9/L Normal 2.0 - 7.5 E9/L [facility] Neutrophils/100 WBC (Bld) 58.5 % Normal 36.0 - 75.0 % [facility] Platelet 233.0 E9/L Normal 150.0 - 500.0 E9/L [facility] Platelet mean volume (Bld) [Entitic vol] 7.4 fL Normal 6.4 - 10.8 fL [facility] RBC (Bld) [#/Vol] 5.1 E12/L Normal 4.3 - 5.9 E12/L [facility] WBC corrected for nucl RBC Auto (Bld) [#/Vol] 5.2 E9/L Normal 4.0 - 11.0 E9/L [facility] UA with Cult Rflxon 11-11-19 24 Color (U) Yellow Normal Yellow [facility] Comment on above: Result Comment: Micr oscopic readings are only performed on those samples that meet specific criteria set forth by [facility]. Performed By: #### 4 [id number], [id number] #### [facility] [address] [place] [address] Glucose (U) [Mass/Vol] Negative Normal Negative [facility] Comment on above: Performed By: #### 4 [id number], [id number] #### [facility] [address] [place] [address] Ketones Ql (U) Negative Normal Negative [facility] Comment on above: Performed By: #### 4 [id number], [id number] #### [facility] [address] [place] [address] UA Blood 1+ mg/dL Abnormal Negative [facility] Comment on above: Performed By: #### 4 [id number], [id number] #### [facility] [address] [place] [address] UA Clarity Clear Normal Clear [facility] Comment on above: Performed By: #### 4 [id number], [id number] #### [facility] [address] [place] [address] UA Leuk Est 500 Cory/uL Abnormal Negative [facility] Comment on above: Performed By: #### 4 [id number], [id number] #### [facility] [address] [place] [address] UA Mucous Trace Normal Negative [facility] Comment on above: Performed By: #### 4 [id number], [id number] #### [facility] [address] [place] [address] UA Nitrite Negative Normal Negative [facility] Comment on above: Performed By: #### 4 [id number], [id number] #### [facility] [address] [place] [address] UA pH 5.5 Invalid Interpretation Code 5.0-9.0 [facility] Comment on above: Performed By: #### 4 [id number], [id number] #### [facility] [address] [place] [address] UA Protein Trace Abnormal Negative [facility] Comment on above: Performed By: #### 4 [id number], [id number] #### [facility] [address] [place] [address] UA RBC 4-20 Abnormal 0-3 [facility] Comment on above: Performed By: #### 4 [id number], [id number] #### [facility] [address] [place] [address] UA Spec Grav 1.022 Invalid Interpretation Code 1.005-1.03 0 [facility] Comment on above: Performed By: #### 4 [id number], [id number] #### [facility] [address] [place] [address] UA Squam Epithelial 0-2 Normal 0-2 [facility] Comment on above: Performed By: #### 4 [id number], [id number] #### [facility] [address] [place] [address] UA Urobilinogen Negative Normal Negative [facility] Comment on above: Performed By: #### 4 [id number], [id number] #### [facility] [address] [place] [address] UA WBC >75 Abnormal 0-5 [facility] Comment on above: Performed By: #### 4 [id number], [id number] #### [facility] [address] [place] [address] Urobilinogen (U) [Mass/Vol] Negative Normal Negative [facility] Comment on above: Performed By: #### 4 [id number], [id number] #### [facility] [address] [place] [address] UA Spec Desc Clean Catch Normal [facility] Comment on above: Performed By: #### 4 [id number], [id number] #### [facility] [address] [place] [address] URINALYSISOrdered By: SYSTEM SYSTEM on 11-11-2023 Color (U) Yellow 1 (11/11/23 11:01 AM) Normal Yellow [facility] UA Auto SS Comment on above: Interpretive Data: M icroscopic readings are only performed on those samples that meet specific criteria set forth by [facility]. Glucose (U) [Mass/Vol] Negative Normal Negat ivemg /dL [facility] UA Auto SS Ketones Ql (U) Negative Normal Negativemg /dL [facility] UA Auto SS UA Blood 1+ mg/dL Invalid Interpretation Code Negativemg /dL [facility] UA Auto SS UA Clarity Clear (11/11/23 11:01 AM) Normal Clear [facility] UA Auto SS UA Leuk Est 500 Cory/uL Cory/uL Invalid Interpretation Code NegativeLe u/uL [facility] UA Auto SS UA Mucous Trace graded/LPF Normal Negativegr aded/LPF [facility] UA Auto SS UA Nitrite Negative Normal Negativemg /dL [facility] UA Auto SS UA pH 5.5 *NA* (11/11/23 11:01 AM) Invalid Interpretation Code 5.0 - 9.0 [facility] UA Auto SS UA Protein Trace mg/dL Invalid Interpretation Code Negativemg /dL [facility] UA Auto SS UA RBC 4-20 graded/HPF Invalid Interpretation Code 0-3graded/ HPF [facility] UA Auto SS UA Spec Grav 1.022 *NA* (11/11/23 11:01 AM) Invalid Interpretation Code 1.005 - 1.030 [facility] UA Auto SS UA Squam Epithelial 0-2 graded/HPF Normal 0-2gra ded/ HPF [facility] UA Auto SS UA Urobilinogen Negative Normal Negativemg /dL [facility] UA Auto SS UA WBC >75 graded/HPF Invalid Interpretation Code 0-5graded/ HPF [facility] UA Auto SS Urobilinogen (U) [Mass/Vol] Negative Normal Negativemg /dL [facility] UA Auto SS URINALYSISOrdered By: Criss Medley on 11-11-2023 UA Spec Desc Clean Catch (11/11/23 11:01 AM) Normal [facility] UA Auto SS eGFRon 11-11-2023 eGFR 80 mL/min/1.73 m2 Normal >=59 [facility] Comment on above: Order Comment: Order added by Discern Expert. Performed By: #### 2 [id number], [id number] #### [facility] [address] [place] [id number] [facility] US LOWER EXTREMITY VENO US DUPLEX BILATERALon 11-06-2023 VASC US LOWER EXTREMITY VENOUS DUPLEX BILATERAL HISTORY: Bilateral leg pain and swelling. History of DVT. COMPARISON: None. TECHNIQUE: The bilateral lower extremity veins were evaluated with color Doppler, grayscale imaging, and spectral analysis while using compression and augmentation when possible. RESULT: Positive for DVT of the right peroneal vein, probably chronic. Otherwise evaluation of the bilateral lower extremity veins from the thigh to the calf shows normal phasic flow, and normal augmentation of the Doppler signal, and normal compression of the deep veins. There is no sonographic evidence for acute deep venous thrombosis from the bilateral groin to the popliteal region. There is no sonographic evidence for acute deep vein thrombosis in the left calf veins. No evidence for SVT. IMPRESSION: Positive for DVT of the right peroneal vein, probably chronic. ELECTRONICALLY SIGNED BY: Ashutosh Mckinley MD Normal Not Available Physician Orderon 11-04-2023 Physician Order [id number]#1.00TIFF Normal [facility] Physician Orderon 11-01-2023 Physician Order [id number]#1.00TIFF Normal [facility] Calciumon 10-29-2023 Calcium [Mass/Vol] 9.1 mg/dL Normal 8.6-10.3 [facility] Comment on above: Result Comment: PERF ORMED BY: [facility] [address] [place] [address] PATHOLOGIST PRODUCT ASSURANCE ENGINEER AASHISH FLETCHER M.D. Performed By: #### C , BMP #### [facility] [address] Calcium [Mass/volume] in Ser um or PlasmaOrdered By: Juan Cook on 10-29-2023 Calcium [Mass/Vol] 9.1 mg/dL 8.6-10.3 [facility] Parathyrin.intact [Mass/volu me] in Serum or PlasmaOrdered By: Juan Cook on 10-29-2023 Parathyrin.intact [Mass/Vol] 55.9 pg/mL [facility] Parathyroid Hormone Intacton 10-29-2023 Parathyroid Hormone Intact 55.9 pg/mL Normal [facility] Comment on above: Result Comment: PERF ORMED BY: [facility] [address] [place] [address] PATHOLOGIST PRODUCT ASSURANCE ENGINEER AASHISH FLETCHER M.D. Performed By: #### C ALCULI #### [facility] , Activated partial thrombopla stin time (aPTT) in platelet poor plasma by coagulation aOrdered By: Anthony Thakur on 10-22-2023 aPTT Coag (PPP) [Time] 30.3 s 25.1-36.5 [facility] Comment on above: A hematocrit value g reater than 55% may lead to inaccurate results in coagulation testing. Patients having hematocrit values >55% require a special collection tube for coagulation studies. Please contact the laboratory at [phone] for redraw instructions. Calciumon 10-22-2023 Calcium [Mass/Vol] 10.9 mg/dL High 8.6-10.3 [facility] Comment on above: Order Comment: Comme nt Run stat and call to Dr. Cook Result Comment: PERF ORMED BY: [facility] [address] [place] [address] PATHOLOGIST PRODUCT ASSURANCE ENGINEER AASHISH FLETCHER M.D. Performed By: #### C ALCULI #### [facility] , Calcium [Mass/Vol] 11.2 mg/dL High 8.6-10.3 [facility] Comment on above: Performed By: #### C A, TSH3, PTH #### [place] [id number] [facility] Calcium [Mass/volume] in Ser um or PlasmaOrdered By: Juan Cook on 10-22-2023 Calcium [Mass/Vol] 10.9 mg/dL 8.6-10.3 [facility] INR in Platelet poor plasma by Coagulation assayOrdered By: Anthony Thakur on 10-22-2023 INR Coag (PPP) [Relative time] 1.0 {INR} [facility] Comment on above: INR Therapeutic Rang e A) Pre- and Peroperative OAT started two weeks before surgery. NOT HIP SURGERY: 1.5 - 2.5 HIP SURGERY: 2 - 3B) Primary and secondary prevention of venous THROMBOSIS: 2 - 3C) Active venous thrombosis, pulmonary embolismand prevention of recurrent venous thrombosis: 2 - 3D) Prevention of arterial thromboembolismincluding patients with mechanical heart valves: 3 - 4.5 Intact PTH IO Additionalon 0 10-22-2023 Intact PTH IO Additional 20.1 pg/mL Normal [facility] Comment on above: Order Comment: Minut es from excision: NA Result Comment: PERF ORMED BY: [place] [address] PATHOLOGIST PRODUCT ASSURANCE ENGINEER AASHISH FLETCHER M.D. Performed By: #### C BC, BMP #### [facility] [address] [place] [address] [place] Intact PTH IO Post Induction on 10-22-2023 Intact PTH IO Post Induction 178.8 High 12.0-88.0 [facility] Comment on above: Result Comment: PERF ORMED BY: [place] [address] PATHOLOGIST PRODUCT ASSURANCE ENGINEER AASHISH FLETCHER M.D. Performed By: #### C BC, BMP #### [facility] [address] [place], [place] [id number] [place] Intact PTH Intraoperative 10 Mon 10-22-2023 Intact PTH Intraoperative 10 M 44.4 pg/mL Normal [facility] Comment on above: Order Comment: Comme nt drawn at 1406 Result Comment: PERF ORMED BY: [place] [address] PATHOLOGIST PRODUCT ASSURANCE ENGINEER AASHISH FLETCHER M.D. Performed By: #### C ALCULI #### [facility] , Intact PTH Intraoperative 10 M 304.0 pg/mL High 12-88 [facility] Comment on above: Result Comment: PERF ORMED BY: [place] [address] PATHOLOGIST PRODUCT ASSURANCE ENGINEER AASHISH FLETCHER M.D. Performed By: #### C BC, BMP #### [address] Intact PTH Intraoperative 15 Mon 10-22-2023 Intact PTH Intraoperative 15 M 175.6 pg/mL Normal [facility] Comment on above: Result Comment: PERF ORMED BY: [place] [address] PATHOLOGIST PRODUCT ASSURANCE ENGINEER AASHISH FLETCHER M.D. Performed By: #### C BC, BMP #### [address] Akash 10-22-2023 L Specimen: [id number] Received: 10/22/23 Status: PATRICIA Ames Num: [id number] Spec Type: Surgical Subm Dr: Juan Cook DO Tissues: A Parathyroid Gland (LT INFERIOR PARATHYROID GLAN) B Parathyroid Gland (LT SUPERIOR PARATHYROKID SIA) Procedures: HE/2, Gross/Micro L4/2, FS HE/4 Age/ Patient Sex Location Account Attending Physician Padmini Lloyd 73/M [place] [id number] Juan Cook DO SPEC NUM: [id number] RECD: 10/22/23 STATUS: PATRICIA AMES NUM: [id number] EZRA: 10/22/[address]: Juan Cook DO ENTERED: 10/22/23 [facility] DR: SPEC TYPE: Surgical DEPT: S ORDERED: HE/2, Gross/Micro L4/2, FS HE/4 ORDERED: HE/2, Gross/Micro L4/2, FS HE/4 Pathological Diagnosis A. Left inferior parathyroid adenoma, excision: - Enlarged, 1.4 gram parathyroid with a hypercellular, oxyphilic nodule consistent with a parathyroid adenoma. B. Left superior parathyroid adenoma, excision: - Enlarged, 0.5 gram parathyroid with a hypercellular nodule, consistent with a parathyroid adenoma. Clinical Information Parathyroid adenoma Gross Description A. Received fresh labeled with the patient's name, date of and left inferior parathyroid adenoma is a 1.4 g, 1.8 x 1.7 x 0.6 cm mcbride-red, rubbery tissue with a mcbride-brown cut surface. The specimen is entirely submitted for frozen section evaluation. Entirely submitted in 1 cassette as follows: A1 - Frozen section remnant B. Received fresh labeled with the patient's name, date of and left superior parathyroid adenoma is a 0.5 g, 1.5 x 1.2 x 0.7 cm mcbride-red, rubbery tissue with a mcbride-brown cut surface. The specimen is entirely submitted for frozen section evaluation. Entirely submitted in 1 cassette as follows: Specimen: [id number] Received: 10/22/23 Status: PATRICIA Justine Num: [id number] Spec Type: Surgical Subm Dr: Juan Cook DO Tissues: A Parathyroid Gland (LT INFERIOR PARATHYROID GLAN) B Parathyroid Gland (LT SUPERIOR PARATHYROKID SIA) Procedures: HE/2, Gross/Micro L4/2, FS HE/4 Patient: HaroonevertPadmini [id number] (Continued) Specimen: Received: 10/22/23 (Continued) Gross Description (Continued) Signed (signature on file) Christian Alvarez MD 10/23/23 1053 Specimen: Received: 10/22/23 Status: PATRICIA Ames Num: [id number] Spec Type: Surgical Subm Dr: Juan Cook DO Tissues: A Parathyroid Gland (LT INFERIOR PARATHYROID GLAN) B Parathyroid Gland (LT SUPERIOR PARATHYROKID SIA) Procedures: HE/2, Gross/Micro L4/2, FS HE/4 Patient: Padmini Lloyd [id number] (Continued) Specimen: Received: 10/22/23 (Continued) Gross Description (Continued) B1 - Frozen section remnant Intraoperative Diagnosis A. Left inferior parathyroid adenoma: - Oncocytic lesion with follicular architecture, favor parathyroid on frozen section. Reported by Dr. Alvarez 10/22/2023 at 1:36 PM B. Left superior parathyroid adenoma: - 0.5 g enlarged, hypercellular parathyroid gland. Reported by Dr. Alvarez 10/22/2023 at 2:13 PM CPT Codes 86407w1, 11580t4 Specimen: [id number] Received: 10/22/23 Status: PATRICIA Ames Num: [id number] Spec Type: Surgical Subm Dr: Juan Cook DO Tissues: A Parathyroid Gland (LT INFERIOR PARATHYROID GLAN) B Parathyroid Gland (LT SUPERIOR PARATHYROKID SIA) Procedures: HE/2, Gross/Micro L4/2, FS HE/4 Patient: Padmini Lloyd [id number] (Continued) Signed (signature on file) Christian Alvarez MD 10/23/23 1053 Normal [facility] Parathyrin.intact [Mass/volu me] in Serum or PlasmaOrdered By: Juan Cook on 10-22-2023 Parathyrin.intact [Mass/Vol] 6.8 pg/mL [facility] Parathyrin.intact [Mass/volu me] in Serum or Plasma --10 minutes post excisionOrdered By: Juan Cook on 10-22-2023 Parathyrin.intact 10 Min post excision [Mass/Vol] 44.4 pg/mL [facility] Parathyrin.intact [Mass/volu me] in Serum or Plasma --post XXX challengeOrdered By: Juan Cook on 10-22-2023 Parathyrin.intact post Unsp challenge [Mass/Vol] 20.1 pg/mL [facility] Parathyrin.intact post Unsp challenge [Mass/Vol] 175.6 pg/mL [facility] Parathyrin.intact [Mass/volu me] in Serum or Plasma --post excisionOrdered By: Juan Cook on 10-22-2023 Parathyrin.intact post excision [Mass/Vol] 178.8 pg/mL .0-88.0 [facility] Parathyroid Hormone Intacton 10-22-2023 Parathyroid Hormone Intact 6.8 pg/mL Low [facility] Comment on above: Order Comment: Comme nt Run stat and call to Dr. Cook Result Comment: PERF ORMED BY: [facility] [address] [place] [address] PATHOLOGIST PRODUCT ASSURANCE ENGINEER AASHISH FLETCHER M.D. Performed By: #### C ALCULI #### [facility] , Parathyroid Hormone Intact 165.8 pg/mL High [facility] Comment on above: Result Comment: PERF ORMED BY: [place] [address] PATHOLOGIST PRODUCT ASSURANCE ENGINEER AASHISH FLETCHER M.D. Performed By: #### C A, TSH3, PTH #### [facility] [address] [place] [address] [place] Partial Thromboplastin Timeo n 10-22-2023 aPTT Coag (Bld) [Time] 30.3 s Normal 25.1-36.5 [facility] Comment on above: Result Comment: A he matocrit value greater than 55% may lead to inaccurate results in coagulation testing. Patients having hematocrit values >55% require a special collection tube for coagulation studies. Please contact the laboratory at [phone] for redraw instructions. PERFORMED BY: [place] [address] PATHOLOGIST PRODUCT ASSURANCE ENGINEER AASHISH FLETCHER M.D. Performed By: #### C BC, BMP #### [address] [address] [place] Prothrombin Time INRon 10-21 INR Coag (PPP) [Relative time] 1.0 {INR} Normal [facility] Comment on above: Result Comment: INR Therapeutic Range A) Pre- and Peroperative OAT started two weeks before surgery. NOT HIP SURGERY: 1.5 - 2.5 HIP SURGERY: 2 - 3 B) Primary and secondary prevention of venous THROMBOSIS: 2 - 3 C) Active venous thrombosis, pulmonary embolism and prevention of recurrent venous thrombosis: 2 - 3 D) Prevention of arterial thromboembolism including patients with mechanical heart valves: 3 - 4.5 Performed By: #### C BC, BMP #### [facility] [address] [place] [address] [place] PT Coag (PPP) [Time] 11.8 s Normal 9.0-12.9 [facility] Comment on above: Result Comment: A he matocrit value greater than 55% may lead to inaccurate results in coagulation testing. Patients having hematocrit values >55% require a special collection tube for coagulation studies. Please contact the laboratory at [phone] for redraw instructions. Performed By: #### C BC, BMP #### [address] Prothrombin time (PT)Ordered By: Anthony Thakur on 10-22-2023 PT Coag (PPP) [Time] 11.8 s 9.0-12.9 [facility] Comment on above: A hematocrit value g reater than 55% may lead to inaccurate results in coagulation testing. Patients having hematocrit values >55% require a special collection tube for coagulation studies. Please contact the laboratory at [phone] for redraw instructions. Thyroid Stimulating Hormoneo n 10-22-2023 TSH Qn 1.15 m[IU]/L Normal 0.45-5.33 [facility] Comment on above: Result Comment: PERF ORMED BY: [place] [address] PATHOLOGIST PRODUCT ASSURANCE ENGINEER AASHISH FLETCHER M.D. Performed By: #### C A, TSH3, PTH #### [address] Thyrotropin [Units/volume] i n Serum or PlasmaOrdered By: Juan Cook on 10-22-2023 TSH Qn 1.15 m[IU]/L 0.45-5.33 [facility] Basic Metabolic Panelon Anion gap [Moles/Vol] 8.1 mmol/L Normal 6.0-15.0 [facility] Comment on above: Performed By: #### C BC, BMP #### [address] Calcium [Mass/Vol] 10.8 mg/dL High 8.6-10.3 [facility] Comment on above: Result Comment: PERF ORMED BY: [place] [address] PATHOLOGIST PRODUCT ASSURANCE ENGINEER AASHISH FLETCHER M.D. Performed By: #### C BC, BMP #### [address] Performed By: #### B MP, PT, CBC, PTT #### [facility] [address] [place] [id number] [place] Chloride [Moles/Vol] 108 mmol/L High 98-107 [facility] Comment on above: Performed By: #### C BC, BMP #### [facility] [address] [id number] [facility] CO2 [Moles/Vol] 26.3 mmol/L Normal 21.0-31.0 [facility] Comment on above: Performed By: #### C BC, BMP #### [facility] [address] Creatinine [Mass/Vol] 0.91 mg/dL Normal 0.70-1.30 [facility] Comment on above: Performed By: #### C BC, BMP #### [facility] [address] [place] [address] [place] GFR/1.73 sq M.predicted MDRD (S/P/Bld) [Vol rate/Area] mL/min/{1.73_m2} [facility] Comment on above: Performed By: #### C BC, BMP #### [address] Glucose [Mass/Vol] 84 mg/dL Normal 70-100 [facility] Comment on above: Result Comment: [place] Glucose Reference Range is dependent on time and content of last meal. Glucose of more than 200 mg/dL in a nonstressed, ambulatory subject supports the diagnosis of Diabetes Mellitus. ADA recommended reference range Performed By: #### C BC, BMP #### [facility] [address] [id number] [place] Potassium [Moles/Vol] 4.4 mmol/L Normal 3.5-5.1 [facility] Comment on above: Performed By: #### C BC, BMP #### [facility] [address] [id number] [place] Sodium [Moles/Vol] 138 mmol/L Normal 136-145 [facility] Comment on above: Performed By: #### C BC, BMP #### [facility] [address] [place] [address] [place] Urea nitrogen [Mass/Vol] 17 mg/dL Normal 7-25 [facility] Comment on above: Performed By: #### C FABIÁN, BMP #### [facility] [address] [place] [address] [place] Basophils Auto (Bld) [#/Vol] Ordered By: Juan Cook on 10-11-2023 Basophils (Bld) [#/Vol] 0.0 10*3/uL 0.0-0.2 [facility] Basophils/100 WBC Auto (Bld) Ordered By: Juan Cook on 10-11-2023 Basophils/100 WBC (Bld) 0.4 % . [facility] Calcium [Mass/volume] in Ser um or PlasmaOrdered By: Juan Cook on 10-11-2023 Calcium [Mass/Vol] 10.8 mg/dL 8.6-10.3 [facility] Carbon dioxide, total [Moles /volume] in Serum or PlasmaOrdered By: Juan Cook on 10-11-2023 CO2 [Moles/Vol] 26.3 mmol/L 21.0-31.0 [facility] Chloride [Moles/volume] in S katelin or PlasmaOrdered By: Juan Cook on 10-11-2023 Chloride [Moles/Vol] 108 mmol/L 98-107 [facility] Complete Blood Count Auto Di ffon 10-11-2023 Basophils (Bld) [#/Vol] 0.0 10*3/uL Normal 0.0-0.2 [facility] Comment on above: Result Comment: PERF ORMED BY: [place] [address] PATHOLOGIST PRODUCT ASSURANCE ENGINEER AASHISH FLETCHER M.D. Performed By: #### C FABIÁN, BMP #### [facility] [address] [place] [address] [place] Basophils/100 WBC (Bld) 0.4 % Normal . [facility] Comment on above: Performed By: #### C FABIÁN, BMP #### [facility] [address] [place] [address] [place] Eosinophils (Bld) [#/Vol] 0.0 10*3/uL Normal 0.0-0.45 [facility] Comment on above: Performed By: #### C BC, BMP #### [facility] [address] Eosinophils/100 WBC (Bld) 0.4 % Normal . [facility] Comment on above: Performed By: #### C BC, BMP #### [facility] [address] Erythrocyte distribution width (RBC) [Ratio] 14.2 % Normal 12.0-14.8 [facility] Comment on above: Performed By: #### C BC, BMP #### [facility] [address] Hematocrit (Bld) [Volume fraction] 45.6 % Normal 38.8-50.0 [facility] Comment on above: Performed By: #### C BC, BMP #### [facility] [address] Hemoglobin (Bld) [Mass/Vol] 15.2 g/dL Normal 13.0-17.0 [facility] Comment on above: Performed By: #### C BC, BMP #### [address] Lymphocytes (Bld) [#/Vol] 1.7 10*3/uL Normal 1.00-4.8 [facility] Comment on above: Performed By: #### C BC, BMP #### [place] [address] [place] Lymphocytes/100 WBC (Bld) 34.8 % Normal . [facility] Comment on above: Performed By: #### C BC, BMP #### [facility] [address] MCH (RBC) [Entitic mass] 29.9 pg Normal 27.5-35.2 [facility] Comment on above: Performed By: #### C BC, BMP #### [facility] [address] MCV (RBC) [Entitic vol] 89.6 fL Normal 83.5-101 [facility] Comment on above: Performed By: #### C BC, BMP #### [facility] [address] Mean Corpuscular HGB Conc 33.4 g/dL Normal 32.5-35.6 [facility] Comment on above: Performed By: #### C BC, BMP #### [facility] [address] [place] [address] [place] Monocytes (Bld) [#/Vol] 0.5 10*3/uL Normal 0.0-0.8 [facility] Comment on above: Performed By: #### C BC, BMP #### [facility] [address] Monocytes/100 WBC (Bld) 10.3 % Normal . [facility] Comment on above: Performed By: #### C BC, BMP #### [facility] [address] Neutrophils (Bld) [#/Vol] 2.6 10*3/uL Normal 1.8-7.7 [facility] Comment on above: Performed By: #### C BC, BMP #### [facility] [address] Neutrophils/100 WBC (Bld) 54.1 % Normal . [facility] Comment on above: Performed By: #### C BC, BMP #### [facility] [address] [place] [address] [place] NRBC% 0.1 /100{WBC} Normal 0-0.5 [facility] Comment on above: Performed By: #### C BC, BMP #### [facility] [address] [place] [address] [place] Platelet mean volume (Bld) [Entitic vol] 7.3 fL Normal 6.6-10.1 [facility] Comment on above: Performed By: #### C BC, BMP #### [facility] [address] [place] [address] [place] Platelets (Bld) [#/Vol] 199 10*3/uL Normal 150-450 [facility] Comment on above: Performed By: #### C FABIÁN, BMP #### [facility] [address] RBC (Bld) [#/Vol] 5.08 10*6/uL Normal 3.90-5.60 [facility] Comment on above: Performed By: #### C FABIÁN, BMP #### [facility] [address] [id number] [place] WBC (Bld) [#/Vol] 4.8 10*3/uL Normal 4.1-10.5 [facility] Comment on above: Performed By: #### C BC, BMP #### [facility] [address] Creatinine [Mass/volume] in Serum or PlasmaOrdered By: Juan Cook on 10-11-2023 Creatinine [Mass/Vol] 0.91 mg/dL 0.70-1.30 [facility] Eosinophils Auto (Bld) [#/Vo l]Ordered By: Juan Cook on 10-11-2023 Eosinophils (Bld) [#/Vol] 0.0 10*3/uL 0.0-0.45 [facility] Eosinophils/100 WBC Auto (Bl d)Ordered By: Juan Cook on 10-11-2023 Eosinophils/100 WBC (Bld) 0.4 % . [facility] Erythrocyte distribution wid th Auto (RBC) [Ratio]Ordered By: Juan Cook on 10-11-2023 Erythrocyte distribution width (RBC) [Ratio] 14.2 % 12.0-14.8 [facility] Glucose [Mass/volume] in Ser um or PlasmaOrdered By: Juan Cook on 10-11-2023 Glucose [Mass/Vol] 84 mg/dL 70-100 [facility] Comment on above: ADA recommended refe rence rangeRandom Glucose Reference Range is dependent on time and content of last meal. Glucose of more than 200 mg/dL in a nonstressed, ambulatory subject supports the diagnosis of Diabetes Mellitus. Hematocrit Auto (Bld) [Volum e fraction]Ordered By: Juan Cook on 10-11-2023 Hematocrit (Bld) [Volume fraction] 45.6 % 38.8-50.0 [facility] Hemoglobin [Mass/volume] in BloodOrdered By: Juan Cook on 10-11-2023 Hemoglobin (Bld) [Mass/Vol] 15.2 g/dL 13.0-17.0 [facility] Leukocytes [#/volume] correc denise for nucleated erythrocytes in Blood by Automated counOrdered By: Juan Cook on 10-11-2023 WBC corrected for nucl RBC Auto (Bld) [#/Vol] 4.8 10*3/uL 4.1-10.5 [facility] Lymphocytes Auto (Bld) [#/Vo l]Ordered By: Juan Cook on 10-11-2023 Lymphocytes (Bld) [#/Vol] 1.7 10*3/uL 1.00-4.8 [facility] Lymphocytes/100 WBC Auto (Bl d)Ordered By: Juan Cook on 10-11-2023 Lymphocytes/100 WBC (Bld) 34.8 % . [facility] MCH Auto (RBC) [Entitic mass ]Ordered By: Juan Cook on 10-11-2023 MCH (RBC) [Entitic mass] 29.9 pg 27.5-35.2 [facility] MCHC Auto (RBC) [Mass/Vol]Or dered By: Juan Cook on 10-11-2023 MCHC (RBC) [Mass/Vol] 33.4 g/dL 32.5-35.6 [facility] MCV Auto (RBC) [Entitic vol] Ordered By: Juan Cook on 10-11-2023 MCV (RBC) [Entitic vol] 89.6 fL 83.5-101 [facility] Monocytes Auto (Bld) [#/Vol] Ordered By: Juan Cook on 10-11-2023 Monocytes (Bld) [#/Vol] 0.5 10*3/uL 0.0-0.8 [facility] Monocytes/100 WBC Auto (Bld) Ordered By: Juan Cook on 10-11-2023 Monocytes/100 WBC (Bld) 10.3 % . [facility] Neutrophils Auto (Bld) [#/Vo l]Ordered By: Juan Cook on 10-11-2023 Neutrophils (Bld) [#/Vol] 2.6 10*3/uL 1.8-7.7 [facility] Neutrophils/100 WBC Auto (Bl d)Ordered By: Juan Cook on 10-11-2023 Neutrophils/100 WBC (Bld) 54.1 % . [facility] No Panel InformationOrdered By: Juan Cook on 10-11-2023 Estimated GFR (CKD-EPI) > 60.0 mL/Min [facility] Creatinine Clearance (Chem N/A [facility] Nucleated erythrocytes [Pres ence] in Blood by Automated countOrdered By: Juan Cook on 10-11-2023 Nucleated RBC Auto Ql (Bld) 0.1 /100{WBC} 0-0.5 [facility] Parathyrin.intact [Mass/volu me] in Serum or PlasmaOrdered By: Juan Cook on 10-11-2023 Parathyrin.intact [Mass/Vol] 149.8 pg/mL [facility] Parathyroid Hormone Intacton 10-11-2023 Parathyroid Hormone Intact 149.8 pg/mL High [facility] Comment on above: Result Comment: PERF ORMED BY: [facility] [address] [place] [address] PATHOLOGIST PRODUCT ASSURANCE ENGINEER AASHISH FLETCHER M.D. Performed By: #### C ALCULI #### [facility] , Platelet mean volume Auto (B ld) [Entitic vol]Ordered By: Juan Cook on 10-11-2023 Platelet mean volume (Bld) [Entitic vol] 7.3 fL 6.6-10.1 [facility] Platelets Auto (Bld) [#/Vol] Ordered By: Juan Cook on 10-11-2023 Platelets (Bld) [#/Vol] 199 10*3/uL 150-450 [facility] Potassium [Moles/volume] in Serum or PlasmaOrdered By: Juan Cook on 10-11-2023 Potassium [Moles/Vol] 4.4 mmol/L 3.5-5.1 [facility] RBC Auto (Bld) [#/Vol]Ordere d By: Juan Cook on 10-11-2023 RBC (Bld) [#/Vol] 5.08 10*6/uL 3.90-5.60 [facility] Serum or plasma anion gap de terminationOrdered By: Juan Cook on 10-11-2023 Anion gap [Moles/Vol] 8.1 mmol/L 6.0-15.0 [facility] Sodium [Moles/volume] in Ser um or PlasmaOrdered By: Juan Cook on 10-11-2023 Sodium [Moles/Vol] 138 mmol/L 136-145 [facility] Thyroid Stimulating Hormoneo n 10-11-2023 TSH Qn 0.90 m[IU]/L Normal 0.45-5.33 [facility] Comment on above: Performed By: #### B MP, PT, CBC, PTT #### [facility] [address] Thyrotropin [Units/volume] i n Serum or PlasmaOrdered By: Juan Cook on 10-11-2023 TSH Qn 0.90 m[IU]/L 0.45-5.33 [facility] Urea nitrogen [Mass/volume] in Serum or PlasmaOrdered By: Juan Cook on 10-11-2023 Urea nitrogen [Mass/Vol] 17 mg/dL 7-25 [facility] Vitamin D 25 Hydroxy Totalon 10-11-2023 Vitamin D 25 Hydroxy Total 28.8 ng/mL Low 30-100 [facility] Comment on above: Result Comment: FABIANO MIN D STATUS 25(OH)VITAMIN D RANGE (ng/mL) Deficient <20 Insufficient 20 to <30 Sufficient 30 to 100 Reference: Karri MF,Corwin NC, Adonis JOSHUA, et al. Evaluation,treatment, and prevention of vitamin D deficiency; an Endocrine Society clinical practice guideline. JCEM. 2010; 96(7):1911-30. PERFORMED BY: [place] [address] PATHOLOGIST PRODUCT ASSURANCE ENGINEER AASHISH FLETCHER M.D. Performed By: #### B MP, PT, CBC, PTT #### [facility] [address] [place] [address] [facility] Vitamin D+Metabolites [Mass/ volume] in Serum or PlasmaOrdered By: Juan Cook on 10-11-2023 Vitamin D+Metabolites [Mass/Vol] 28.8 ng/mL 30-100 [facility] Comment on above: VITAMIN D STATUS 25( [place])VITAMIN D RANGE (ng/mL) Deficient <20 Insufficient 20 to <30Sufficient 30 to 100Reference: Karri MF,Corwin SHELDON, Adonis JOSHUA, et al. Evaluation,treatment, and prevention of vitamin D deficiency; an Endocrine Society clinical practice guideline. JCEM. 2010; 96(7):1911-30. WBC Auto (Bld) [#/Vol]Ordere d By: Juan Cook on 10-11-2023 WBC (Bld) [#/Vol] 4.8 10*3/uL 4.1-10.5 [facility] MR HIP LEFT W AND WO IV CONT RASTon 09-26-2023 MR HIP LEFT W AND WO IV CONTRAST EXAMINATION: MR HIP LEFT W AND WO IV CONTRAST History: Abnormal PET/CT. Technique: Routine MRI of the pelvis and hip(s). Study performed with and without contrast. Given 20 mL of intravenous ProHance. Comparison: PET/CT 09/16/2023. Radiographs 09/13/2023, 07/02/2023. Result: RIGHT HIP: Large mhhrm-so-uqma with moderate area of avascular necrosis involving the femoral head, without evidence for cortical collapse or associated bone marrow edema. Degenerative changes on the large [id number]-ko-jfxd. LEFT HIP: Advanced destructive type changes involving the left hip joint with bony remodeling of the femoral head, cystic changes, diffuse edema extending into the proximal femur, and also diffuse enhancement. Findings are likely secondary to avascular necrosis with extensive cortical collapse, now with advanced osteoarthritis. Moderate joint effusion. Diffuse degenerative tearing of the labrum. Also subchondral edema involving the acetabulum, likely reactive/degenerative in etiology. SI JOINTS: Unremarkable on the large byszu-pz-xkic. PUBIC SYMPHYSIS: Degenerative changes. BONE MARROW: Left hip and right hip findings as above. TENDONS: The rectus femoris tendons, iliopsoas tendons, hamstring tendons, hip adductor and abductor tendons appear to be intact bilaterally. Mild to moderate fluid signal overlying the left greater trochanter, suggestive of bursitis. MUSCLE: Muscle bulk and signal intensity are within normal limits. NERVES: The visualized portions of the lumbosacral plexus and sciatic nerves appear to be within normal limits. VISCERAL PELVIS: Limited evaluation grossly unchanged from, and better evaluated on the recent PET/CT. Fat-containing bilateral inguinal hernias. Colonic diverticulosis. Prostate grossly unchanged. LOWER LUMBAR SPINE: Limited evaluation with degenerative changes. OTHER: No other significant abnormality. IMPRESSION: Left hip findings as discussed, likely secondary to avascular necrosis of the left femoral head with extensive cortical collapse contributing to advanced osteoarthritis. Large icasd-vw-sbzy with avascular process of the right femoral head without evidence for cortical collapse or associated bone marrow edema. Left greater trochanteric bursitis. ELECTRONICALLY SIGNED BY: Ashutosh Mckinley MD Normal Not Available CT neck 4D parathyroidon CT neck 4D parathyroid [facility] [address] [place] [address] CT Scan Report Signed Patient: Padmini Lloyd MR#: [id number] : 1950 Acct:[id number] Age/Sex: 73 / M ADM Date: 09/23/23 Loc: OR Room: Type: [facility] Attending Dr: Juan Cook DO Copies to: Juan Cook DO Ordering Provider: Juan Cook DO Date of Service: 09/23/23 CT/CT neck 4D parathyroid: hyperparathyroidism 4D PARATHYROID CT WITHOUT AND WITH INTRAVENOUS CONTRAST COMPARISON: Parathyroid scan 09/23/2023 CLINICAL DATA: Hyperparathyroidism. Spiral images were obtained through the neck without contrast. Following intravenous administration of 90 mL of Isovue 300, scans through the neck were performed at 25 seconds and [address] exam was performed using one or more following dose reduction techniques: Automated exposure control, adjustment of the mA and/or kV according to patient size, or use of iterative reconstruction technique. No thyroid nodularity is visualized. Adjacent to the inferior pole of the thyroid lobe on the left, there is a 14 mm nodule. This is lower in attenuation than the thyroid gland precontrast and there is enhancement and washout on the post contrast imaging. This correlates with finding on the nuclear medicine study and is thought to be a parathyroid adenoma. There is a second tiny 5 mm nodule posterior to the mid to upper portion of the left thyroid lobe which appears separate from the thyroid. This could potentially be a second parathyroid adenoma. It is not definitely confirmed on the nuclear medicine study. There is no convincing evidence of parathyroid adenoma on the right. The submandibular and parotid glands appear symmetric. The tonsils are borderline prominent. There is some asymmetry on the right and the uvula is slightly deviated toward that direction. The epiglottis and vocal cords are unremarkable. Small shotty cervical lymph nodes are identified. There are multilevel degenerative changes involving the cervical spine. The imaged paranasal sinuses show minimal mucosal thickening at the right maxillary sinus. The mastoid air cells are clear. Limited cuts through the upper chest show borderline aneurysmal dilatation of the ascending aorta. There are small lymph nodes. There is interstitial and mild mosaic groundglass density. CT/CT neck 4D parathyroid IMPRESSION: FINDINGS SUSPICIOUS FOR AT LEAST ONE THOUGH POTENTIALLY 2 PARATHYROID ADENOMAS ON THE LEFT. CORRELATION IS RECOMMENDED WITH ULTRASOUND IMAGING WHICH IS PRESUMED TO HAVE BEEN PERFORMED AT THE REFERRING PHYSICIAN'S OFFICE. ASYMMETRY AT THE RIGHT TONSIL FOR WHICH DIRECT VISUALIZATION IS SUGGESTED. Impression dictated by: Raquel Shaw M.D.09/23/2023 3:24 PM Dictation Location: [place] [address] Transcribed By: EDGARDO 09/23/23 1524 Dictated By: Raquel Shaw MD 09/23/23 1506 Signed By: 09/23/23 1524 Normal [facility] Creatinine (Bld) [Mass/Vol]O rdered By: Juan Cook on 09-23-2023 Creatinine [Mass/Vol] 1.1 mg/dL 0.6-1.3 [facility] Comment on above: ER/ESD physician is notified/shown all ISTAT results.Critical values may be confirmed by laboratory testing ifdeemed necessary by ER attending doctor. ISTAT XRay CREon 09-23-2023 Creatinine [Mass/Vol] 1.1 mg/dL Normal 0.6-1.3 [facility] Comment on above: Result Comment: ER/E SD physician is notified/shown all ISTAT results. Critical values may be confirmed by laboratory testing if deemed necessary by ER attending doctor. Performed By: #### C BC, BMP #### [facility] [address] [place] [address] ISTAT GFR > 60.0 Normal [facility] Comment on above: Result Comment: PERF ORMED BY: [place] [address] PATHOLOGIST PRODUCT ASSURANCE ENGINEER AASHISH FLETCHER M.D. Performed By: #### C BC, BMP #### [facility] [address] [place] [address] NM*parathyroid SPECT*on 09-05 NM*parathyroid SPECT* [facility] [address] [place] [address] Nuclear Medicine Report Signed Patient: Padmini Lloyd MR#: [id number] : 1950 Acct:[id number] Age/Sex: 73 / M ADM Date: 09/23/23 Loc: OR Room: Type: [facility] Attending Dr: Juan Cook DO Copies to: DO Raquel Brush MD Ordering Provider: Juan Cook DO Date of Service: 09/23/23 NM/NM*parathyroid SPECT*: hyperparathyroidism PARATHYROID SCAN WITH SPECT IMAGING CLINICAL DATA: Hyperparathyroidism COMPARISON: 4D CT scanning 09/23/2023 Following the intravenous administration of 24.1 mCi of technetium 99 M labeled sestamibi, anterior imaging of the neck and chest was performed at 15 minutes and 2 hours. SPECT imaging was also performed in 3 planes. There is uptake at the salivary glands as well as at both thyroid lobes. There is asymmetry at the inferior aspect of the left thyroid lobe on the early images. At 2 hours, there is washout from the thyroid lobes though there is persistent asymmetric increased uptake inferiorly on the left. The appearance is suspicious for parathyroid adenoma. It also correlates with the nodule seen on the CT study. The second questioned left parathyroid adenoma near the mid to upper pole on the CT study is more difficult to confirm on this exam due to the small size and resolution. It might be seen on the SPECT images. NM/NM*parathyroid SPECT* IMPRESSION: AT LEAST ONE THOUGH POSSIBLY 2 PARATHYROID ADENOMAS NEAR THE LEFT THYROID LOBE Impression dictated by: Raquel Shaw M.D.09/23/2023 3:31 PM Dictation Location: RADIO-PC-10 Transcribed By: EDGARDO 09/23/23 1531 Dictated By: Raquel Sahw MD 09/23/23 1524 Signed By: 09/23/23 1531 Normal [facility] No Panel InformationOrdered By: Juan Cook on 09-23-2023 Bedside Estimated GFR (eGFR) > 60.0 [facility] CNOVon 09-18-2023 CNOV Office Visit (RADTSA ) -- KARTIKPADMINI THORNE ([id number]) 1950 M Date Time Provider Department 09/18/23 11:30 AM Marko GARCIA During your visit today, we recorded the following information about you: Temperature Pulse Respiration Blood pressure 97.6 degrees 69/minute 16/minute 149/82 Weight 108.9 kg Marko Garcia MD 09/25/2023 2:05 PM Signed Radiation Oncology - Follow Up Note PATIENT NAME: Padmini Lloyd PATIENT DIAGNOSIS: 1. Prostate adenocarcinoma, initial PSA 4.66, biopsy [place] score 3 + 3 = 6 (grade group 1), clinical stage T1c N0 M0 , s/p I-125 prostate seed implant on 11/28/16. 2. 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 11/16/21:Doing much better. Had COVID infection earlier this year with significant pulmonary compromise nearly on the ventilator. Has been recuperating well. Recently stopped needing supplemental O2. Denies chest pain. Denies fever chills night sweats. Denies visual change. 05/17/21:Doing well. Vision intact. No diplopia. No significant headache or other changes. Recent ophthalmology exam unremarkable other than some mild posttreatment changes. 03/02/2021:Doing well. Patient has been good. He has had some matting of the left eye in the morning, this is nearly resolved with eyedrops. Denies any pain or headache. No fever or chills. Is very active. RADIOLOGY: PET CT 09/17/2023: IMPRESSION: HEAD/NECK: * No FDG avid neoplastic process. No recurrent hypermetabolic left orbital soft tissue. CHEST: * No FDG avid neoplastic process. * Previously noted pleural-based right lower lobe opacity has decreased in size, with only mild residual linear opacity remaining in this region, suggestive of improved atelectasis. ABDOMEN/PELVIS: * New hypermetabolic left pelvic and bilateral inguinal nodes, left greater than right. In the setting of left hip inflammatory findings, these nodes may be benign/reactive. However, given history of both lymphoma and prostate cancer, ashely metastatic involvement cannot be excluded and continued close attention on follow-up is recommended. 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 This can be further evaluated with MRI. MRI orbit 11/15/2022: Since 05/07/2022 the ill-defined subtly enhancing curvilinear soft tissue in the superior left orbit has substantially decreased in size and degree of enhancement. No new intraorbital abnormality. MRI orbit with and without contrast 05/07/2022: Minimal curvilinear enhancing soft tissue superior left orbit stable from November 2021 exam. Markedly improved from October 2020 exam. MRI orbit with and without contrast 11/13/2021: Ill-defined faintly enhancing curvilinear soft tissue superior left orbit similar to slightly decreased in size compared with May scan. Degree of enhancement less pronounced. No other findings. PET/CT 05/11/2021,1. NECK: * No new FDG avid neoplastic process. Interval decreased size in FDG avidity of infiltrative left orbital lesion. Residual left orbital fat stranding demonstrated FDG activity below the blood pool background. Deauville score: 2 2. CHEST: * No FDG avid neoplastic process. Unchanged pleural-based right lower lobe opacity without significant FDG avidity, compatible with scarring/atelectasis. 3. ABDOMEN/PELVIS: * No FDG avid neoplastic process. 4. EXTREMITIES/SKELETON: * No suspicious FDG avid osseous lesion. MRI orbit 05/08/2021, moderate interval improvement. Thin rind of abnormal tissue along superior aspect of left orbit. LABORATORY: PSA 11/15/2022 less than 0.13 PSA (ng/mL) Date Value 08/28/2023 <0.02 08/21/2022 0.02 11/13/2021 0.03 06/21/2021 <0.1 07/18/2020 0.11 07/15/2019 0.21 01/21/2019 0.45 ALLERGIES: ALLERGIES Allergen Reactions Avelox [Moxifloxaci* Mental Status Change Bactrim [Sulfametho* Mental Status Change, Other: See Comments Renal Failure Quinolones Other: See Comments Confusion Sulfa (Sulfonamide * Other: See Comments Abdomin pain MEDICATIONS: nebivolol (BYSTOLIC) 10 mg tablet Take 10 mg by mouth every morning. ZINC ORAL Take 25 mg by mouth. Magnesium 250 mg tab Take 250 mg by mouth. losartan (COZAAR) 100 mg tablet Take 100 mg by mouth once daily. cyanocobalamin (VITAMIN B-12) 1,000 mcg tab Take 1,000 mcg by mouth two times a week. warfarin sodium (WARFARIN ORAL) Take by mouth daily as directed. As Directed ergocalciferol, vitamin D2, (VITAMIN D2 ORAL) Take by mouth. Multivitamin capsule Take (more content not included)... 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 Hx of prostate cancer. INDICATION: Subsequent treatment strategy TECHNIQUE: Radiotracer was administered IV followed about 60 minutes later by PET imaging from eyes to proximal thighs. Free breathing, low dose CT of the same body region was acquired without IV contrast for attenuation correction and anatomic localization. 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 HEAD AND NECK: Head (imaged): No abnormal uptake. Specifically, there is no recurrent hypermetabolic left orbital soft tissue. Neck and Lymph Nodes: No abnormal uptake. Thyroid: No abnormal uptake. CHEST: Lungs and Airways: No abnormal uptake. Previously noted pleural-based right lower lobe opacity has decreased in size, with only mild residual linear opacity remaining in this region (4/151). Pleura and Pericardium: No abnormal uptake. Cardiovascular: No abnormal uptake. Atherosclerotic calcifications. Mediastinum and Lymph Nodes: No abnormal uptake. ABDOMEN AND PELVIS: Hepatobiliary: No abnormal uptake. Spleen: No abnormal uptake. No splenomegaly. Pancreas: No abnormal uptake. Adrenals: No abnormal uptake. Urinary Tract: No abnormal uptake. GI Tract and Peritoneum: No abnormal uptake. No dilated bowel. Colonic diverticulosis. Vasculature: No abnormal uptake. Atherosclerotic calcifications without an abdominal aortic aneurysm. Retroperitoneum and Lymph Nodes: There are new hypermetabolic left pelvic and bilateral inguinal nodes, left greater than right. For example, a 2.3 x 0.9 cm left obturator node measures SUV max 9.6 (4/277) and a 1.5 x 1.1 cm left inguinal node measures SUV max 5.8 (4/302). Pelvis: No abnormal uptake. Redemonstrated high density markers or seeds within the prostate gland. 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 Soft tissues: No abnormal uptake. Bilateral fat-containing inguinal hernias. IMPRESSION: HEAD/NECK: * No FDG avid neoplastic process. No recurrent hypermetabolic left orbital soft tissue. CHEST: * No FDG avid neoplastic process. * Previously noted pleural-based right lower lobe opacity has decreased in size, with only mild residual linear opacity remaining in this region, suggestive of improved atelectasis. ABDOMEN/PELVIS: * New hypermetabolic left pelvic and bilateral inguinal nodes, left greater than right. In the setting of left hip inflammatory findings, these nodes may be benign/reactive. However, given history of both lymphoma and prostate cancer, ashely metastatic involvement cannot be excluded and continued close attention on follow-up is recommended. 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 This can be further evaluated with MRI. COMMUNICATION: Left femoral head findings communicated with Dr. CORINNA GARCIA on 09/17/2023 2:28 PM via text page. Transcribe Date/Time: Sep 17 2023 2:11P Dictated by: JAKOB PIZANO MD This examination was interpreted and the report reviewed and electronically signed by: JAKOB PIZANO MD on Sep 17 2023 2:41PM EST Thank you for allowing us to participate in the care of your patient. Should there be any questions regarding this interpretation, please call [phone]. If you are unable to reach us at the number above, please feel free to contact [facility]Radiology at [phone]. [id number] Normal [facility] XR LUMBAR SPINE COMPLETE 4+ VIEWSon 09-13-2023 XR LUMBAR SPINE COMPLETE 4+ VIEWS EXAMINATION: XR LUMBAR SPINE COMPLETE 4+ VIEWS TECHNIQUE: 5 views of the lumbar spine. HISTORY: Low back pain. Left thigh pain. COMPARISONS: None available. FINDINGS: Lumbar spine alignment is within normal limits. Lumbar vertebral body heights are maintained. Moderate intervertebral disc height loss at L4-L5 and L5-S1. Mild intervertebral disc height loss at L3-L4. Multilevel degenerative endplate spurring. Facet arthropathy throughout the lumbar spine greatest at L4-5 and L5-S1. No acute fracture. No spondylolysis or spondylolisthesis. Advanced degenerative changes of the left hip with possible femoral head AVN with collapse, findings that are incompletely evaluated on this examination. 2 calcifications projecting of the left renal shadow measuring approximately 5 mm each may represent renal calculi. IMPRESSION: No acute osseous abnormality. Degenerative changes of the lumbar spine. 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 ELECTRONICALLY SIGNED BY: Tristan Marcelo DO Normal Not Available XR SACRUM COCCYX 2+ VIEWSon 09-13-2023 XR SACRUM COCCYX 2+ VIEWS CLINICAL HISTORY: low back pain, left thigh pain COMPARISON: NONE. Sacrum and coccyx FINDINGS: There are no lytic or sclerotic bone lesions. The femoral heads are located. There is no joint space narrowing. There is no acute fracture or subluxation. There are multiple metallic foreign bodies in the midline of the pelvis consistent with prior brachytherapy.. IMPRESSION: Impression: There are no acute osseous changes. ELECTRONICALLY SIGNED BY: Antoine Muniz MD Normal Not Available CNOVon 09-05-2023 CNOV Office Visit (RADTSA ) -- KARTIKPADMINI THORNE ([id number]) 1950 M Date Time Provider Department 09/05/23 9:15 AM Marko GARCIA During your visit today, we recorded the following information about you: Temperature Pulse Respiration Weight 96.8 degrees 71/minute 18/minute 109 kg Yael Matson RN 09/05/2023 9:11 AM Signed SONIA Fuentes G Phillip, MD 09/05/2023 9:59 AM Signed Radiation Oncology - Follow Up Note PATIENT NAME: Padmini Lloyd PATIENT DIAGNOSIS: 1. Prostate adenocarcinoma, initial PSA 4.66, biopsy [place] score 3 + 3 = 6 (grade group 1), clinical stage T1c N0 M0 , s/p I-125 prostate seed implant on 11/28/16. 2. 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 Has had some fasciculations of his left upper thigh. Denies headache. Denies visual change. Underwent recent visual examination without remarkable findings. Has had x-rays and cover with out remarkable findings. 11/21/22:Doing well. Denies any significant new issues or problems. 11/16/21:Doing much better. Had COVID infection earlier this year with significant pulmonary compromise nearly on the ventilator. Has been recuperating well. Recently stopped needing supplemental O2. Denies chest pain. Denies fever chills night sweats. Denies visual change. 05/17/21:Doing well. Vision intact. No diplopia. No significant headache or other changes. Recent ophthalmology exam unremarkable other than some mild posttreatment changes. 03/02/2021:Doing well. Patient has been good. He has had some matting of the left eye in the morning, this is nearly resolved with eyedrops. Denies any pain or headache. No fever or chills. Is very active. RADIOLOGY: MRI orbit 11/15/2022: Since 05/07/2022 the ill-defined subtly enhancing curvilinear soft tissue in the superior left orbit has substantially decreased in size and degree of enhancement. No new intraorbital abnormality. MRI orbit with and without contrast 05/07/2022: Minimal curvilinear enhancing soft tissue superior left orbit stable from November 2021 exam. Markedly improved from October 2020 exam. MRI orbit with and without contrast 11/13/2021: Ill-defined faintly enhancing curvilinear soft tissue superior left orbit similar to slightly decreased in size compared with May scan. Degree of enhancement less pronounced. No other findings. PET/CT 05/11/2021,1. NECK: * No new FDG avid neoplastic process. Interval decreased size in FDG avidity of infiltrative left orbital lesion. Residual left orbital fat stranding demonstrated FDG activity below the blood pool background. Deauville score: 2 2. CHEST: * No FDG avid neoplastic process. Unchanged pleural-based right lower lobe opacity without significant FDG avidity, compatible with scarring/atelectasis. 3. ABDOMEN/PELVIS: * No FDG avid neoplastic process. 4. EXTREMITIES/SKELETON: * No suspicious FDG avid osseous lesion. MRI orbit 05/08/2021, moderate interval improvement. Thin rind of abnormal tissue along superior aspect of left orbit. LABORATORY: Latest Reference Range AND Units 08/28/23 10:01 Sodium 136 - 144 mmol/L 140 Potassium 3.7 - 5.1 mmol/L 4.4 Chloride 97 - 105 mmol/L 106 (H) CO2 22 - 30 mmol/L 26 BUN 9 - 24 mg/dL 25 (H) Creatinine 0.73 - 1.22 mg/dL 1.16 Glucose 74 - 99 mg/dL 96 Protein, Total 6.3 - 8.0 g/dL 7.0 Calcium 8.5 - 10.2 mg/dL 11.6 (H) Albumin 3.9 - 4.9 g/dL 4.2 Bilirubin, Total 0.2 - 1.3 mg/dL 0.6 Alkaline Phosphatase 38 - 113 U/L 146 (H) ALT 10 - 54 U/L 22 AST 14 - 40 U/L 16 Anion Gap 9 - 18 mmol/L 8 (L) LD 135 - 225 U/L 167 eGFR >=60 mL/min/1.73m? 67 PSA <2.60 ng/mL <0.02 WBC 3.70 - 11.00 k/uL 6.53 RBC 4.20 - 6.00 m/uL 5.56 Hemoglobin 13.0 - 17.0 g/dL 16.4 Hematocrit 39.0 - 51.0 % 49.5 Platelet Count 150 - 400 k/uL 210 MCV 80.0 - 100.0 fL 89.0 MCH 26.0 - 34.0 pg 29.5 MCHC 30.5 - 36.0 g/dL 33.1 MPV 9.0 - 12.7 fL 8.8 (L) RDW-CV 11.5 - 15.0 % 13.2 DTYPE Auto Neut% % 42.3 Abs Neut (ANC) 1.45 - 7.50 k/uL 2.77 Lymph% % 44.3 Abs Lymph 1.00 - 4.00 k/uL 2.89 [place]% % 11.5 Abs [place] <0.87 k/uL 0.75 Eosin% % 0.9 Abs Eosin <0.46 k/uL 0.06 Baso% % 0.5 Abs Baso <0.11 k/uL 0.03 Immature Gran % % 0.5 IMMATURE GRANS (ABS) <0.10 k/uL 0.03 NRBC /100 WBC 0.0 Absolute nRBC <0.01 k/uL <0.01 WSR 0 - 15 mm/hr 8 (H): Data is abnormally high (L): Data is abnormally low PSA 11/15/2022 less than 0.13 PSA (ng/mL) Date Value 08/28/2023 <0.02 08/21/2022 0.02 11/13/2021 0.03 06/21/2021 <0.1 07/18/2020 0.11 07/15/2019 0.21 01/21/2019 0.45 Latest Reference Range AND Units 08/28/23 10:01 WBC 3.70 - 11.00 k/uL 6.53 RBC 4.20 - 6.00 m/ (more content not included)... Normal [facility] Calcium.ionized [Moles/Vol]o n 09-05-2023 Calcium.ionized [Mass/Vol] 6.1 mg/dL High 4.7 - 5.5 mg/dL [facility] Laboratory - Chemistry and C hemistry - challengeon 09-05-2023 Parathyrin.intact [Mass/Vol] 100 pg/mL High 16 - 77 pg/mL [facility] Comment on above: Interpretive Guide Intact PTH Calcium ------- Normal Parathyroid Normal Normal Hypoparathyroidism Low or Low Normal Low Hyperparathyroidism Primary Normal or High High Secondary High Normal or Low Tertiary High High Non-Parathyroid Hypercalcemia Low or Low Normal High No Panel Informationon 09-05 Interpretation and review of laboratory results Abnormal [facility] Performing Organizat ion Information Site ID: QPT Name: [facility] Address: [address] [place] [address], [address] [place] [id number] Director: Georges Yin MD [facility] PT Coag (Bld) [Time]on 09-05 INR Coag (PPP) [Relative time] 1.8 {INR} High [facility] Comment on above: Reference Range 0.9- 1.1 Moderate-intensity Warfarin Therapy 2.0-3.0 Higher-intensity Warfarin Therapy 3.0-4.0 PT Coag (PPP) [Time] 18.0 s High [facility] Comment on above: For additional infor faith, please refer to http://education.[employer]/faq/YCG953 (This link is being provided for informational/ educational purposes only.) CBC W Auto Differential pane l (Bld)on 08-28-2023 Basophils (Bld) [#/Vol] 0.03 10*3/uL Normal <0.11 [facility] Comment on above: Order Comment: Speci men Type: BLOOD SPECIMEN Ordering Facility: [facility] Address: [address] [place] [address] Performed By: #### 5 7021-8 #### [facility] CLIA [id number] [address] [place] [address] Basophils/100 WBC (Bld) 0.5 % Normal [facility] Comment on above: Order Comment: Speci men Type: BLOOD SPECIMEN Ordering Facility: [facility] Address: [address] [place] [address] Performed By: #### 5 7021-8 #### [facility] CLIA [id number] [address] [place] [address] Differential cell count method Nom (Bld) Auto Normal [facility] Comment on above: Order Comment: Speci men Type: BLOOD SPECIMEN Ordering Facility: [facility] Address: [address] [place] [address] Performed By: #### 5 7021-8 #### [facility] CLIA [id number] [address] [place] [address] Eosinophils (Bld) [#/Vol] 0.06 10*3/uL Normal <0.46 [facility] Comment on above: Order Comment: Speci men Type: BLOOD SPECIMEN Ordering Facility: [facility] Address: [address] [place] [address] Performed By: #### 5 7021-8 #### [facility] CLIA [id number] [address] [place] [address] [place] [address] Eosinophils/100 WBC (Bld) 0.9 % Normal [facility] Comment on above: Order Comment: Speci men Type: BLOOD SPECIMEN Ordering Facility: [facility] Address: [address] [place] [address] Performed By: #### 5 7021-8 #### [facility] CLIA [id number] [address] [place] [address] Erythrocyte distribution width (RBC) [Ratio] 13.2 % Normal 11.5-15.0 [facility] Comment on above: Order Comment: Speci men Type: BLOOD SPECIMEN Ordering Facility: [facility] Address: [address] [place] [address] Performed By: #### 5 7021-8 #### [facility] CLIA [id number] [address] [place] [address] Hematocrit (Bld) [Volume fraction] 49.5 % Normal 39.0-51.0 [facility] Comment on above: Order Comment: Speci men Type: BLOOD SPECIMEN Ordering Facility: [facility] Address: [address] [place] [address] Performed By: #### 5 7021-8 #### [facility] CLIA [id number] [address] [place] [address] Hemoglobin (Bld) [Mass/Vol] 16.4 g/dL Normal 13.0-17.0 [facility] Comment on above: Order Comment: Speci men Type: BLOOD SPECIMEN Ordering Facility: [facility] Address: [address] [place] [address] Performed By: #### 5 7021-8 #### [facility] CLIA [id number] [address] [place] [address] Immature granulocytes (Bld) [#/Vol] 0.03 10*3/uL Normal <0.10 [facility] Comment on above: Order Comment: Speci men Type: BLOOD SPECIMEN Ordering Facility: [facility] Address: [address] [place] [address] Performed By: #### 5 7021-8 #### [facility] CLIA [id number] [address] [place] [address] Immature granulocytes/100 WBC (Bld) 0.5 % Normal [facility] Comment on above: Order Comment: Speci men Type: BLOOD SPECIMEN Ordering Facility: [facility] Address: [address] [place] [address] Performed By: #### 5 7021-8 #### [facility] CLIA [id number] [address] [place] [address] Lymphocytes (Bld) [#/Vol] 2.89 10*3/uL Normal 1.00-4.00 [facility] Comment on above: Order Comment: Speci men Type: BLOOD SPECIMEN Ordering Facility: [facility] Address: [address] [place] [address] Performed By: #### 5 7021-8 #### [facility] CLIA [id number] [address] [place] [address] Lymphocytes/100 WBC (Bld) 44.3 % Normal [facility] Comment on above: Order Comment: Speci men Type: BLOOD SPECIMEN Ordering Facility: [facility] Address: [address] [place] [address] Performed By: #### 5 7021-8 #### [facility] CLIA [id number] [address] [place] [address] MCH (RBC) [Entitic mass] 29.5 pg Normal 26.0-34.0 [facility] Comment on above: Order Comment: Speci men Type: BLOOD SPECIMEN Ordering Facility: [facility] Address: [address] [place] [address] Performed By: #### 5 7021-8 #### [facility] CLIA [id number] [address] [place] [address]90 MCHC (RBC) [Mass/Vol] 33.1 g/dL Normal 30.5-36.0 [facility] Comment on above: Order Comment: Speci men Type: BLOOD SPECIMEN Ordering Facility: [facility] Address: [address] [place] [address] Performed By: #### 5 7021-8 #### [facility] CLIA [id number] [address] [place] [address]398 MCV (RBC) [Entitic vol] 89.0 fL Normal 80.0-100.0 [facility] Comment on above: Order Comment: Speci men Type: BLOOD SPECIMEN Ordering Facility: [facility] Address: [address] [place] [address] Performed By: #### 5 7021-8 #### [facility] CLIA [id number] [address] [place] [address] Monocytes (Bld) [#/Vol] 0.75 10*3/uL Normal <0.87 [facility] Comment on above: Order Comment: Speci men Type: BLOOD SPECIMEN Ordering Facility: [facility] Address: [address] [place] [address] Performed By: #### 5 7021-8 #### [facility] CLIA [id number] [address] [place] [address]96 Monocytes/100 WBC (Bld) 11.5 % Normal [facility] Comment on above: Order Comment: Speci men Type: BLOOD SPECIMEN Ordering Facility: [facility] Address: [address] [place] [address] Performed By: #### 5 7021-8 #### [facility] CLIA [id number] [address] [place] [address]9517 Neutrophils (Bld) [#/Vol] 2.77 10*3/uL Normal 1.45-7.50 [facility] Comment on above: Order Comment: Speci men Type: BLOOD SPECIMEN Ordering Facility: [facility] Address: [address] [place] [address] Performed By: #### 5 7021-8 #### [facility] CLIA [id number] [address] [place] [address]772 Neutrophils/100 WBC (Bld) 42.3 % Normal [facility] Comment on above: Order Comment: Speci men Type: BLOOD SPECIMEN Ordering Facility: [facility] Address: [address] [place] [address] Performed By: #### 5 7021-8 #### [facility] CLIA [id number] [address] [place] [address]144 Nucleated RBC (Bld) [#/Vol] 10*3/uL Normal <0.01 [facility] Comment on above: Order Comment: Speci men Type: BLOOD SPECIMEN Ordering Facility: [facility] Address: [address] [place] [address] Performed By: #### 5 7021-8 #### [facility] CLIA [id number] [address] [place] [address] 72847 Nucleated RBC/100 WBC (Bld) [Ratio] 0.0 /100 WBC Normal [facility] Comment on above: Order Comment: Speci men Type: BLOOD SPECIMEN Ordering Facility: [facility] Address: [address] [place] [address] Performed By: #### 5 7021-8 #### [facility] CLIA [id number] [address] [place] [address] 76070 Platelet mean volume (Bld) [Entitic vol] 8.8 fL Low 9.0-12.7 [facility] Comment on above: Order Comment: Speci men Type: BLOOD SPECIMEN Ordering Facility: [facility] Address: [address] [place] [address] Performed By: #### 5 7021-8 #### [facility] CLIA [id number] [address] [place] [address] 6[address]32 Platelets (Bld) [#/Vol] 210 10*3/uL Normal 150-400 [facility] Comment on above: Order Comment: Speci men Type: BLOOD SPECIMEN Ordering Facility: [facility] Address: [address] [place] [address] Performed By: #### 5 7021-8 #### [facility] CLIA [id number] [address] [place] [address] RBC (Bld) [#/Vol] 5.56 10*6/uL Normal 4.20-6.00 [facility] Comment on above: Order Comment: Speci men Type: BLOOD SPECIMEN Ordering Facility: [facility] Address: [address] [place] [address] Performed By: #### 5 7021-8 #### [facility] CLIA [id number] [address] [place] [address] WBC (Bld) [#/Vol] 6.53 10*3/uL Normal 3.70-11.00 [facility] Comment on above: Order Comment: Speci men Type: BLOOD SPECIMEN Ordering Facility: [facility] Address: [address] [place] [address] Performed By: #### 5 7021-8 #### [facility] CLIA [id number] [address] [place] [address] 14569 Comprehensive metabolic 2000 panelon 08-28-2023 Albumin [Mass/Vol] 4.2 g/dL Normal 3.9-4.9 [facility] Comment on above: Order Comment: Speci men Type: BLOOD SPECIMENOrdering Facility: [facility] Address: [address] [place] [address] Performed By: #### 2 4323-8, 2532-0 ####[facility] [id number] [place] [address] ALP [Catalytic activity/Vol] 146 U/L High 38-113 [facility] Comment on above: Order Comment: Speci men Type: BLOOD SPECIMENOrdering Facility: [facility] Address: [address] [place] [address] Performed By: #### 2 4323-8, 2532-0 ####[facility] [id number] [place] [address] ALT [Catalytic activity/Vol] 22 U/L Normal 10-54 [facility] Comment on above: Order Comment: Speci men Type: BLOOD SPECIMENOrdering Facility: [facility] Address: [address] [place] [address] Performed By: #### 2 4323-8, 253-0 ####[facility] [id number] [place] [address] Anion gap [Moles/Vol] 8 mmol/L Low 9-18 [facility] Comment on above: Order Comment: Speci men Type: BLOOD SPECIMENOrdering Facility: [facility] Address: [address] [place] [address] Performed By: #### 2 4323-8, 2531-0 ####[facility] [id number] [place] [address] AST [Catalytic activity/Vol] 16 U/L Normal 14-40 [facility] Comment on above: Order Comment: Speci men Type: BLOOD SPECIMENOrdering Facility: [facility] Address: [address] [place] [address] Performed By: #### 2 4323-8, 2531-0 ####[facility]CLIA [id number] [place] [address] Bilirubin [Mass/Vol] 0.6 mg/dL Normal 0.2-1.3 [facility] Comment on above: Order Comment: Speci men Type: BLOOD SPECIMENOrdering Facility: [facility] Address: [address] [place], [place] [id number] Performed By: #### 2 4323-8, 2532-0 ####[facility] [id number] [place] [address] Calcium [Mass/Vol] 11.6 mg/dL High 8.5-10.2 [facility] Comment on above: Order Comment: Speci men Type: BLOOD SPECIMENOrdering Facility: [facility] Address: [address] [place], [place] [address] Result Comment: SHELIA HOPE JT Performed By: #### 2 4323-8, 2532-0 ####[facility] [id number] [place] [address] Chloride [Moles/Vol] 106 mmol/L High 97-105 [facility] Comment on above: Order Comment: Speci men Type: BLOOD SPECIMENOrdering Facility: [facility] Address: [address] [place] [address] Performed By: #### 2 4323-8, 2532-0 ####[facility] [id number] [place] [address] CO2 [Moles/Vol] 26 mmol/L Normal 22-30 [facility] Comment on above: Order Comment: Speci men Type: BLOOD SPECIMENOrdering Facility: [facility] Address: [address] [place] [address] Performed By: #### 2 4323-8, 2531-0 ####[facility] [id number] [place] [address] Creatinine [Mass/Vol] 1.16 mg/dL Normal 0.73-1.22 [facility] Comment on above: Order Comment: Speci men Type: BLOOD SPECIMENOrdering Facility: [facility] Address: [address] [place] [address] Performed By: #### 2 4323-8, 253-0 ####[facility] [id number] [place] [address] Creatinine and Glomerular filtration rate.predicted panel (S/P/Bld) 67 mL/min/1.73m??? Normal >=60 [facility] Comment on above: Order Comment: Speci men Type: BLOOD SPECIMENOrdering Facility: [facility] Address: [address] [place] [address] Result Comment: Annika mated Glomerular Filtration Rate (eGFR) is calculated using the 2020 CKD-EPI creatinine equation. This equation utilizes serum creatinine, sex, and age as parameters. The creatinine assay has traceable calibration to isotope dilution-mass spectrometry. Refer to KDIGO guidelines for clinical interpretation. In patients with unstable renal function, e.g. those with acute kidney injury, the eGFR may not accurately reflect actual GFR. Performed By: #### 2 4323-8, ####[facility] [id number] [place] [address] Glucose [Mass/Vol] 96 mg/dL Normal 74-99 [facility] Comment on above: Order Comment: Speci men Type: BLOOD SPECIMENOrdering Facility: [facility] Address: [address] [place] [address] Result Comment: The [place] Diabetes [employer] (ADA) provides guidance for cutoff values for fasting glucose and random glucose. The ADA defines fasting as no caloric intake for at least 8 hours. Fasting plasma glucose results between 100 to 125 mg/dL indicate increased risk for diabetes (prediabetes). Fasting plasma glucose results greater than or equal to 126 mg/dL meet the criteria for diagnosis of diabetes. In the absence of unequivocal hyperglycemia, results should be confirmed by repeat testing. In a patient with classic symptoms of hyperglycemia or hyperglycemic crisis, random plasma glucose results greater than or equal to 200 mg/dL meet the criteria for diagnosis of diabetes. Reference: Standards of Medical Care in Diabetes 2016, [place] [employer]. Diabetes Care. 2016.39(Suppl 1). Performed By: #### 2 4323-8, ####[facility] [id number] [place] [address] Potassium [Moles/Vol] 4.4 mmol/L Normal 3.7-5.1 [facility] Comment on above: Order Comment: Speci men Type: BLOOD SPECIMENOrdering Facility: [facility] Address: [address] [place] [address] Performed By: #### 2 4323-8, 0 ####[facility]IA [id number] [place] [address] Protein [Mass/Vol] 7.0 g/dL Normal 6.3-8.0 [facility] Comment on above: Order Comment: Speci men Type: BLOOD SPECIMENOrdering Facility: [facility] Address: [address] [place] [address] Performed By: #### 2 4323-8, 2532-0 ####[facility]IA [id number] [place] [address] Sodium [Moles/Vol] 140 mmol/L Normal 136-144 [facility] Comment on above: Order Comment: Speci men Type: BLOOD SPECIMENOrdering Facility: [facility] Address: [address] [place] [address] Performed By: #### 2 4323-8, 2532-0 ####[facility]CLIA [id number] [place] [address] Urea nitrogen [Mass/Vol] 25 mg/dL High 9-24 [facility] Comment on above: Order Comment: Speci men Type: BLOOD SPECIMENOrdering Facility: [facility] Address: [address] [place] [address] Performed By: #### 2 4323-8, 253-0 ####[facility]CLIA [id number] [place] [address] ESR Westergren method (Bld) [Velocity]on 08-28-2023 ESR (Bld) [Velocity] 8 mm/h Normal 0-15 [facility] Comment on above: Order Comment: Speci men Type: BLOOD SPECIMENOrdering Facility: [facility] Address: [address] [place] [address] Performed By: #### 4 537-7 ####[facility] LABCLIA [id number] [place] [address] [place] LDH SerPl-cCncon 08-28-2023 LDH [Catalytic activity/Vol] 167 U/L Normal 135-225 [facility] Comment on above: Order Comment: Speci men Type: BLOOD SPECIMENOrdering Facility: [facility] Address: [address] [place] [address] Performed By: #### 2 4323-8, 2532-0 ####[facility] [id number] [place] [address] [facility] Prostate specific Ag [Mass/Vol] ng/mL Normal <2.60 [facility] Comment on above: Order Comment: Speci men Type: BLOOD SPECIMENOrdering Facility: [facility] Address: [address] [place] [address] Result Comment: Tota l PSA test methodology used is the Electrochemiluminescence Immunoassay by [employer]. Total PSA values by differing methodologies cannot be interchanged. Performed By: #### 2 857-1 ####[facility] LABCLIA [id number] [facility] [place] [address] [place] CNPRenee 08-21-2023 REJIN Telephone (RADTSA) -- PADMINI LLOYD ([id number]) 1950 Date Time Provider Department 08/21/23 Marko GARCIA During your visit today, we recorded the following information about you: Aashish Benoit LPN 08/21/2023 3:39 PM Signed Jose called stating he had an eye exam yesterday and he notified them that he has had leg cramps since March 2023. He denies redness or swelling of his lower extremities. He said he his eye doctor mentioned that these muscle cramps could be related to his lymphoma. He states he had xrays of his lower extremities that were negative and has been treated with prescription creams per his PCP with little relief. He has scheduled follow up in November [address] Garcia. He is wondering if he should be seen sooner. He also does not have a PSA ordered for his upcoming follow up for history of prostate cancer. Please advise. SONIA Chavez Aashish, [employer] 08/22/2023 3:13 PM Signed I notified Jose that Dr. Garcia is happy to move up follow up appt and add lab work. Patient is in agreement and call transferred to [facility]. Dr. Garcia-PSA order pending your approval. SONIA Chavez Aashish, FELICIA 08/22/2023 3:13 PM Signed Addended by: AASHISH BENOIT on: 08/22/2023 03:13 PM Modules accepted: Orders Marko Garcia MD 08/22/2023 3:44 PM Signed Addended by: Marko GARCIA on: 08/22/2023 03:44 PM Modules accepted: Orders Allergies As of Date: 08/21/2023 Noted Allergy Reaction AVELOX (MOXIFLOXACIN HCL) 10/23/2016 1 - Mental Status Change BACTRIM (SULFAMETHOXAZOLE-TRIMETH* 07/16/2018 1 - Mental Status Change 14 - Other: See Comments Comments: Renal Failure QUINOLONES 07/11/2021 14 - Other: See Comments Comments: Confusion SULFA (SULFONAMIDE ANTIBIOTICS) 07/11/2021 14 - Other: See Comments Comments: Abdomin pain Date Reviewed: 11/21/2022 Reviewed by: Yael Matson RN - Fully Assessed Primary Visit Diagnosis:History of prostate cancer [Z85.46] Other Visit Diagnosis: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 - Magnesium 250 mg tab Take 250 mg by mouth. - losartan (COZAAR) 100 mg tablet Take 100 mg by mouth once daily. - cyanocobalamin (VITAMIN B-12) 1,000 mcg tab Take 1,000 mcg by mouth two times a week. - warfarin sodium (WARFARIN ORAL) Take by mouth daily as directed. As Directed - ergocalciferol, vitamin D2, (VITAMIN D2 ORAL) Take by mouth. - Multivitamin capsule Take 1 capsule by mouth once daily. Problem List As Of Date 08/21/2023 Noted Resolved BENIGN AMANDA CRANIAL NERVE [D33.3] 09/10/2007 Prostate cancer (HCC) [C61] 10/23/2016 History of prostate cancer [Z85.46] 01/08/2018 Encounter Status:Closed by Marko GARCIA on 08/22/23 Normal [facility] XR FEMUR 2+ VW LEFTon 2022 XR FEMUR 2+ VW LEFT FINDINGS: Mild narrowing left hip joint. No fracture, dislocation, bone lesion. Prostatic brachytherapy seeds identified. IMPRESSION: No fracture. Mild degenerative change left hip. ELECTRONICALLY SIGNED BY: Juan Red MD Normal Not Available RAD - MISCon 06-04-2023 RAD - MISC [id number] Normal [facility] Screenson 06-04-2023 Screens [id number] Normal [facility] Ambulatory Visit Summaryon 1 Ambulatory Visit Summary PADMINI LLOYD Armando :1950 Visit Date:06/03/2023 Ambulatory Visit Instructions Your Diagnosis History of UTI Bladder neck contracture H/O prostate cancer Asymptomatic microscopic hematuria Bladder stones Tests Performed Urnls Dip Stick Auto w/o Microscopy POC 63825 Your Care Team Attending Physician - APURVA CALIX, Domenico Haywood Primary Care Physician - JUANA CALIX, JARRED Rice This Is Your Medications List Contact prescribing physician if questions or concerns cranberry (Cranberry) cyanocobalamin (Vitamin B12) ergocalciferol (Vitamin D) losartan (losartan 100 mg Tab) multivitamin (Multi Vitamin+) warfarin (warfarin 6 mg Tab) zinc sulfate (Zinc) Procedures Performed TURP - Transurethral resection of prostate (05/20/2023), Litholapaxy of bladder calculus (03/14/2022), Cystourethroscopy with dilation of urethral stricture (02/08/2022), Cystoscopy (08/24/2020), Endoscopic transurethral electrovaporization of prostate (05/15/2017), Transrectal biopsy of prostate using ultrasound (US) guidance (09/07/2016), Brachytherapy (2016), Colonoscopy. Discharge Vitals Blood Pressure 134/82 Height 183 cm Height 72 in Weight 108.9 kg Weight 239.58 lb BMI 32.52 What to do next Scheduled Follow-Up Appointments Saturday 8:00 AM EDT With: APURVA CALIX, Domenico Haywood Where: [facility] Patient Educationon 06-03-20 23 Patient Education Nephrology Dietary Guidelines to Help Prevent Kidney Stones Kidney stones are deposits of minerals and salts that form inside your kidneys. Your risk of developing kidney stones may be greater depending on your diet, your lifestyle, the medicines you take, and whether you have certain medical conditions. Most people can lower their chances of developing kidney stones by following the instructions below. Your dietitian may give you more specific instructions depending on your overall health and the type of kidney stones you tend to develop. What are tips for following this plan? Reading food labels ? Choose foods with no salt added or low-salt labels. Limit your salt (sodium) intake to less than 1,500 mg a day. ? Choose foods with calcium for each meal and snack. Try to eat about 300 mg of calcium at each meal. Foods that contain 200?500 mg of calcium a serving include: ? 8 oz (237 mL) of milk, yigxhkv-uqzgvuzlmtpx-knlmz milk, and calcium-fortifiedfruit juice. Calcium-fortified means that calcium has been added to these drinks. ? 8 oz (237 mL) of kefir, yogurt, and soy yogurt. ? 4 oz (114 g) of tofu. ? 1 oz (28 g) of cheese. ? 1 cup (150 g) of dried figs. ? 1 cup (91 g) of cooked broccoli. ? One 3 oz (85 g) can of sardines or mackerel. Most people need 1,000?1,500 mg of calcium a day. Talk to your dietitian about how much calcium is recommended for you. Shopping ? Buy plenty of fresh fruits and vegetables. Most people do not need to avoid fruits and vegetables, even if these foods contain nutrients that may contribute to kidney stones. ? When shopping for convenience foods, choose: ? Whole pieces of fruit. ? Pre-made salads with dressing on the side. ? Low-fat fruit and yogurt smoothies. ? Avoid buying frozen meals or prepared deli foods. These can be high in sodium. ? Look for foods with live cultures, such as yogurt and kefir. ? Choose high-fiber grains, such as whole-wheat breads, oat bran, and wheat cereals. Cooking ? Do not add salt to food when cooking. Place a salt shaker on the table and allow each person to add his or her own salt to taste. ? Use vegetable protein, such as beans, textured vegetable protein (TVP), or tofu, instead of meat in pasta, casseroles, and soups. Meal planning ? Eat less salt, if told by your dietitian. To do this: ? Avoid eating processed or pre-made food. ? Avoid eating fast food. ? Eat less animal protein, including cheese, meat, poultry, or fish, if told by your dietitian. To do this: ? Limit the number of times you have meat, poultry, fish, or cheese each week. Eat a diet free of meat at least 2 days a week. ? Eat only one serving each day of meat, poultry, fish, or seafood. ? When you prepare animal protein, cut pieces into small portion sizes. For most meat and fish, one serving is about the size of the palm of your hand. ? Eat at least five servings of fresh fruits and vegetables each day. To do this: ? Keep fruits and vegetables on hand for snacks. ? Eat one piece of fruit or a handful of berries with breakfast. ? Have a salad and fruit at lunch. ? Have two kinds of vegetables at dinner. ? Limit foods that are high in a substance called oxalate. These include: ? Spinach (cooked), rhubarb, beets, sweet potatoes, and [place] chard. ? Peanuts. ? Potato chips, mongolian fries, and baked potatoes with skin on. ? Nuts and nut products. ? Chocolate. ? If you regularly take a diuretic medicine, make sure to eat at least 1 or 2 servings of fruits or vegetables that are high in potassium each day. These include: ? Avocado. ? Banana. ? [place], prune, carrot, or tomato juice. ? Baked potato. ? Cabbage. ? Beans and split peas. Lifestyle ? Drink enough fluid to keep your urine pale yellow. This is the most important thing you can do. Spread your fluid intake throughout the day. ? If you drink alcohol: ? Limit how much you use to: ? 0?1 drink a day for women who are not . ? 0?2 drinks a day for men. ? Be aware of how much alcohol is in your drink. In the [place] one drink equals one 12 oz bottle of beer (355 mL), one 5 oz glass of wine (148 mL), or one 1? oz glass of hard liquor (44 mL). ? Lose weight if told by your health care provider. Work with your dietitian to find an eating plan and weight loss strategies that work best for you. General information ? Talk to your health care provider and dietitian about taking daily supplements. You may be told the following depending on your health and the cause of your kidney stones: ? Not to take supplements with vitamin C. ? To take a calcium supplement. ? To take a daily probiotic supplement. ? To take other supplements such as magnesium, fish oil, or vitamin B6. ? Take hwou-htc-pqznnwx and prescription medicines only as told by your health care provider. These include supplements. What foods should I limit? Limit your in (more content not included)... Normal [facility] Urology Office/Clinic Noteon 06-03-2023 Urology Office/Clinic Note HPI Staff PO Cysto/TURP/holmium laser ablation bladder neck/bladder outlet calcifications done 05/20/23, review pathology report. Previous DX: asymptomatic microscopic hematuria, bladder neck contracture, bladder stones, BPH w/urinary obstruction, HX of prostate cancer, kidney stones, nocturia, poor urinary stream, stress incontinence, urinary frequency, UTI. No problems or complications to Cytso IPSS 3 Dysuria: denies Incomplete bladder emptying: denies Hematuria: denies visible blood (Small on U/A today) Frequency: every 4-5 hours Urgency: denies Nocturia: every 4 hours Stream: denies hesitation, normal stream Leaking: sometimes Post void dripping: denies Wearing pads/ Depends: denies Urge incontinence: denies Stress incontinence: yes Incontinence without Sensory Awareness: _denies Abdominal pain: denies Flank pain: denies Sexual complaints: denies History of Present Illness Tests reviewed: reviewed UA and Path Note. I have reviewed the previous health record information and history for this patient from . I have reviewed and verified the staff HPI to be accurate for this encounter. There have been no associated fever, chills, flank pain, or blood in the urine. Denies any urinary infections since last encounter. Review of Systems PHQ Score Initial Depression Screen Score: 0 ROS - Provider Constitutional: denies weight loss, denies hot flashes. Eyes: denies eye problems. Gastrointestinal: denies nausea, denies vomiting. Cardiovascular: denies chest pain or angina. Integumentary: no dryness Musculoskeletal: denies musculoskeletal symptoms. ENMT: denies otolaryngeal symptoms. Respiratory: no shortness of breath. Heme/Lymph: denies easy bleeding tendency, denies easy bruising tendency. Psychiatric: no confusion, no anxiety. Genitourinary: See HPI. Physical Exam Vitals & Measurements BP: 134/82 HT: 72 in HT: 183 cm WT: 108.9 kg WT: 239.58 lb BMI: 32.52 General Appearance: alert, no distress, well nourished, well developed male. Assessment/Plan 1. History of UTI (Z87.440: Personal history of urinary (tract) infections) U.Cx. 08/31/22 - >100,000 Enterococcus faecalis U.Cx. 02/14/23 - 90,000 Enterococcus faecalis, Tx'd w/Doxycycline 100mg BID x7days. Sx improved. Then returned about a week later. Repeat IO UA showed trace leuks only so [facility] recommended no treatment at that time. Pt continues to have burning, dark urine, and foul smelling urine. UA at prior OV showed small leuks and trace blood. Tx'd w/ Amoxicillin 875mg BID x 10 days UA today shows trace leuks and small blood. Asx. 2. 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 Showed bladder neck contracture and a calculus right at the bladder neck. S/p Cysto/Litholapaxy of BNC & fulguration of prostate done 03/14/22 for bladder neck contracture and calculus. S/p Cysto/TURP/holmium laser ablation bladder neck/bladder outlet calcifications 05/20/23 - Path report was negative. IPSS 3(15) Pt states that his stream has gotten a lot better, it is a lot stronger. Advised pt that we will continue to monitor his sxs. Advised pt that if his urinary sxs become bothersome again, he may need to have a repeat cysto done. Follow up in 6 mos. All questions/concerns were discussed. Pt to call the office if he encounters any issues prior. Pt acknowledges understanding. 3. H/O prostate cancer (Z85.46: Personal history of malignant neoplasm of prostate) S/P Brachytherapy done 11/28/16. Last seen by Dr. Garcia 05/16/22, says he will no longer be following w Dr Garcia for prostate cancer but will see him once more for hx lymphoma. PSA: 06/21/21 - 0.1 11/13/21 - 0.03 08/21/22 - 0.02 Will continue to monitor. No changes in plan. 4. Asymptomatic microscopic hematuria (R31.21: Asymptomatic microscopic hematuria) UA today shows small. Chronic. Pt denies any visible blood. 5. Bladder stones (N21.0: Calculus in bladder) Pt denies any personal hx of kidney stones, only bladder stones. Pt states his stream is not straight. Has been spraying. This happened the last 2 times he had bladder stones. KUB 05/31/23 - no stones noted. Advised pt to continue drinking fluids and staying hydrated. The patient is voiding quite well. He does have a bit of stress urinary incontinence when he has a very full bladder. Unfortunately I let him know that his recurring calcification/dystrophic calcification at the bladder outlet will most likely recur over time. Follow-up will be in about 6 months but he is to let me know if he has an acute exacerbation of symptoms. His pathology report is negative for any evidence of malignancy with the TURP specimen. PSAs being followed by Dr. Garcia from radiation oncology Follow-up With When Contact Information Domenico GIPSON MD, URL In 6 months [address] [address]- [phone] (more content not included)... Normal [facility] Comment on above: Result Comment: Elec tronically Signed By: Domenico GIPSON MD\.br\Date and Time Signed: 06/03/23 12:03 EDT\.br\Electronically Co-Signed By: Kavya Garza\.br\Date and Time Co-Signed: 06/03/23 11:41 EDT Lab Reportson 05-30-2023 Lab Reports [id number]#[id number] Normal [facility] Pathology Noteon 05-24-2023 Pathology Note [id number]#1.00TIFF Normal [facility] Operative Reporton 3 Operative Report [id number]#1.00TIFF Normal [facility] Physician Orderon 05-21-2023 Physician Order [id number]#1.00TIFF Normal [facility] Activated partial thrombopla stin time (aPTT) in platelet poor plasma by coagulation aOrdered By: CHRISTIAN COFFEY on 05-20-2023 aPTT Coag (PPP) [Time] 30.7 s 25.1-36.5 [facility] Comment on above: A hematocrit value g reater than 55% may lead to inaccurate results in coagulation testing. Patients having hematocrit values >55% require a special collection tube for coagulation studies. Please contact the laboratory at [phone] for redraw instructions. Calculi, Urinaryon 3 Ca Hydrogen Phos (Brushite) 40 % Normal . [facility] Comment on above: Performed By: #### C ALCULI #### [facility] , Ca Oxalate Monohydrate 30 % Normal . [facility] Comment on above: Performed By: #### C ALCULI #### [facility] , Color (U) Mcbride Normal . [facility] Comment on above: Performed By: #### C ALCULI #### [facility] , Comment1 Normal . [facility] Comment on above: Result Comment: Calc ium phosphate (hydroxyl form) includes hydroxyapatite, amorphous calcium phosphate, and whitlockite. Hydroxyapatite is the most common of the calcium phosphate salts found in human kidney stones. Performed By: #### C ALCULI #### [facility] , Comment2 Normal . [facility] Comment on above: Result Comment: Calc ulus received wet. Wet calculi must be dried before analysis, which delays reporting of results. Leaving calculi wet (such as water, saline, blood, urine) may lead to changes in composition. Performed By: #### C ALCULI #### [facility] , Comment: Normal . [facility] Comment on above: Result Comment: Nidia richard questions regarding Calculi Analysis contact [facility] at: [phone]. Performed By: #### C ALCULI #### [facility] , Composition Normal . [facility] Comment on above: Result Comment: Perc entage (Represents the % composition) Performed By: #### C ALCULI #### [facility] , Disclaimer: Normal . [facility] Comment on above: Result Comment: This test was developed and its performance characteristics determined by [facility]. It has not been cleared or approved by the Food and Drug Administration. Performed at: [address] [id number] Graduate Recruiter: Jonel Rodriguez PhD, Phone: [phone] Performed By: #### C ALCULI #### [facility] , Hydroxyapatite 30 % Normal . [facility] Comment on above: Performed By: #### C ALCULI #### [facility] , Note Normal . [facility] Comment on above: Result Comment: Calc viviana report will follow via computer, mail or pasting machine offbearer delivery. PERFORMED BY: [facility] [place] [address] PATHOLOGIST PRODUCT ASSURANCE ENGINEER AASHISH FLETCHER M.D. Performed By: #### C ALCULI #### [facility] , Photo Normal . [facility] Comment on above: Result Comment: Phot evert will follow under a separate cover Performed By: #### C ALCULI #### [facility] , Size 6x5 Normal . [facility] Comment on above: Result Comment: Mult iple pieces received. Dimensions of the largest piece reported. Performed By: #### C ALCULI #### [facility] , Source Normal . [facility] Comment on above: Result Comment: Pros castaneda Performed By: #### C ALCULI #### [facility] , Weight 404 Normal . [facility] Comment on above: Performed By: #### C ALCULI #### [facility] , INR in Platelet poor plasma by Coagulation assayOrdered By: CHRISTIAN COFFEY on 05-20-2023 INR Coag (PPP) [Relative time] 1.0 {INR} [facility] Comment on above: INR Therapeutic Rang e A) Pre- and Peroperative OAT started two weeks before surgery. NOT HIP SURGERY: 1.5 - 2.5 HIP SURGERY: 2 - 3B) Primary and secondary prevention of venous THROMBOSIS: 2 - 3C) Active venous thrombosis, pulmonary embolismand prevention of recurrent venous thrombosis: 2 - 3D) Prevention of arterial thromboembolismincluding patients with mechanical heart valves: 3 - 4.5 Akash 05-20-2023 L ------ Specimen: [id number] Received: 05/21/23 Status: PATRICIA Ames Num: [id number] Spec Type: Surgical Subm Dr: Domenico Gipson MD Tissues: A Urinary Calculus (PROSTATE STONE) B Urinary Bladder - biopsy (BLADDER NECK OVER PROS STONE) Procedures: HE/2, Gross/Micro L4, PIN Cocktail, Level 1 Gross, NKX3.1 Age/ Patient Sex Location Account Attending Physician Padmini Lloyd/M [place] [id number] Domenico Gipson MD SPEC NUM: [id number] RECD: 05/21/23 STATUS: PATRICIA AMES NUM: [id number] EZRA: 05/20/[address]: Domenico Gipson MD ENTERED: 05/21/[address]: SPEC TYPE: Surgical DEPT: S ORDERED: HE/2, Gross/Micro L4, PIN Cocktail, Level 1 Gross, NKX3.1 ORDERED: HE/2, Gross/Micro L4, PIN Cocktail, Level 1 Gross, NKX3.1 Pathological Diagnosis A. Prostate stone: - Gross examination only, see the gross description B. Bladder neck over prostate stone, biopsy: - Fibromuscular tissue with fibrosis and acute and chronic nonspecific inflammation - Negative for malignancy Note: Immunohistochemical staining with NKX3.1 and PIN performed with appropriate positive controls and supported the above diagnosis. Clinical Information Bladder neck contracture, history of prostate cancer, ambrosio Gross Description A. Received fresh labeled with the patient's name, date of and prostate stone are multiple yellow stones measuring 2.5 x 1.0 x 0.5 cm in aggregate. Entirely submitted for chemical analysis. Gross examination only. B. Received in formalin labeled with the patient's name, date of and bladder neck Specimen: [id number] Received: 05/21/23 Status: PATRICIA Ames Num: [id number] Spec Type: Surgical Subm Dr: Domenico Gipson MD Tissues: A Urinary Calculus (PROSTATE STONE) B Urinary Bladder - biopsy (BLADDER NECK OVER PROS STONE) Procedures: HE/2, Gross/Micro L4, PIN Cocktail, Level 1 Gross, NKX3.1 Patient: Padmini Lloyd [id number] (Continued) Specimen: [id number] Received: 05/21/23 (Continued) Gross Description (Continued) Signed (signature on file) Theron Moser MD 05/23/23 1210 Specimen: Received: 05/21/23 Status: PATRICIA Ames Num: [id number] Spec Type: Surgical Subm Dr: Domenico Gipson MD Tissues: A Urinary Calculus (PROSTATE STONE) B Urinary Bladder - biopsy (BLADDER NECK OVER PROS STONE) Procedures: HE/2, Gross/Micro L4, PIN Cocktail, Level 1 Gross, NKX3.1 Patient: Padmini Lloyd [id number] (Continued) Specimen: Received: 05/21/23 (Continued) Gross Description (Continued) over prostate stone is a 1.5 x 1.2 x 0.3 cm aggregate of mcbride-cota rubbery tissue fragments admixed with calculus fragments. Entirely submitted in one cassette labeled B1. Microscopic Description A. Zero H E slides reviewed. The microscopic examination confirms the diagnosis. B. One H E slide reviewed. The microscopic examination confirms the diagnosis. CPT Codes 27205, 35490 Specimen: [id number] Received: 05/21/23 Status: PATRICIA Ames Num: [id number] Spec Type: Surgical Subm Dr: Domenico Gipson MD Tissues: A Urinary Calculus (PROSTATE STONE) B Urinary Bladder - biopsy (BLADDER NECK OVER PROS STONE) Procedures: HE/2, Gross/Micro L4, PIN Cocktail, Level 1 Gross, NKX3.1 Patient: Padmini Lloyd [id number] (Continued) Signed (signature on file) Theron Moser MD 05/23/23 1210 Normal [facility] Partial Thromboplastin Timeo n 05-20-2023 aPTT Coag (Bld) [Time] 30.7 s Normal 25.1-36.5 [facility] Comment on above: Result Comment: A he matocrit value greater than 55% may lead to inaccurate results in coagulation testing. Patients having hematocrit values >55% require a special collection tube for coagulation studies. Please contact the laboratory at [phone] for redraw instructions. PERFORMED BY: [place] [address] PATHOLOGIST PRODUCT ASSURANCE ENGINEER AASHISH FLETCHER M.D. Performed By: #### C BC, BMP #### [facility] [address] [place], [place] [id number] [facility] Prothrombin Time INRon 05-20 INR Coag (PPP) [Relative time] 1.0 {INR} Normal [facility] Comment on above: Result Comment: INR Therapeutic Range A) Pre- and Peroperative OAT started two weeks before surgery. NOT HIP SURGERY: 1.5 - 2.5 HIP SURGERY: 2 - 3 B) Primary and secondary prevention of venous THROMBOSIS: 2 - 3 C) Active venous thrombosis, pulmonary embolism and prevention of recurrent venous thrombosis: 2 - 3 D) Prevention of arterial thromboembolism including patients with mechanical heart valves: 3 - 4.5 Performed By: #### C BC, BMP #### [facility] [address] [place], [place] [id number] [facility] PT Coag (PPP) [Time] 11.8 s Normal 9.0-12.9 [facility] Comment on above: Result Comment: A he matocrit value greater than 55% may lead to inaccurate results in coagulation testing. Patients having hematocrit values >55% require a special collection tube for coagulation studies. Please contact the laboratory at [phone] for redraw instructions. Performed By: #### C BC, BMP #### [facility] [address] [place] [address] [facility] Prothrombin time (PT)Ordered By: CHRISTIAN COFFEY on 05-20-2023 PT Coag (PPP) [Time] 11.8 s 9.0-12.9 [facility] Comment on above: A hematocrit value g reater than 55% may lead to inaccurate results in coagulation testing. Patients having hematocrit values >55% require a special collection tube for coagulation studies. Please contact the laboratory at [phone] for redraw instructions. Lab Reportson 05-13-2023 Lab Reports [id number] Normal [facility] Lab Reportson 05-08-2023 Lab Reports [id number]#[id number]:127 Normal [facility] Activated partial thrombopla stin time (aPTT) in platelet poor plasma by coagulation aOrdered By: Domenico Gipson on 05-07-2023 aPTT Coag (PPP) [Time] 45.6 s 25.1-36.5 [facility] Comment on above: A hematocrit value g reater than 55% may lead to inaccurate results in coagulation testing. Patients having hematocrit values >55% require a special collection tube for coagulation studies. Please contact the laboratory at [phone] for redraw instructions. Basic Metabolic Panelon Anion gap [Moles/Vol] 10.0 mmol/L Normal 6.0-15.0 [facility] Comment on above: Performed By: #### B MP, PT, CBC, PTT #### [facility] [address] [place] [id number] [facility] Calcium [Mass/Vol] 11.2 mg/dL High 8.6-10.3 [facility] Comment on above: Result Comment: PERF ORMED BY: [facility] [address] [place] [address] PATHOLOGIST PRODUCT ASSURANCE ENGINEER AASHISH FLETCHER M.D. Performed By: #### B MP, PT, CBC, PTT #### [facility] [address] [place] [address] [place] Chloride [Moles/Vol] 106 mmol/L Normal 98-107 [facility] Comment on above: Performed By: #### B MP, PT, CBC, PTT #### [facility] [address] [place] [address] [place] CO2 [Moles/Vol] 27.5 mmol/L Normal 21.0-31.0 [facility] Comment on above: Performed By: #### B MP, PT, CBC, PTT #### [facility] [address] [place] [address] [place] Creatinine [Mass/Vol] 1.02 mg/dL Normal 0.70-1.30 [facility] Comment on above: Performed By: #### B MP, PT, CBC, PTT #### [facility] [address] [place] [address] [place] GFR/1.73 sq M.predicted MDRD (S/P/Bld) [Vol rate/Area] mL/min/{1.73_m2} Normal [facility] Comment on above: Performed By: #### B MP, PT, CBC, PTT #### [facility] [address] [place] [address] [place] Glucose [Mass/Vol] 92 mg/dL Normal 70-100 [facility] Comment on above: Result Comment: [place] Glucose Reference Range is dependent on time and content of last meal. Glucose of more than 200 mg/dL in a nonstressed, ambulatory subject supports the diagnosis of Diabetes Mellitus. ADA recommended reference range Performed By: #### B MP, PT, CBC, PTT #### [facility] [address] [place] [address] [place] Potassium [Moles/Vol] 4.5 mmol/L Normal 3.5-5.1 [facility] Comment on above: Performed By: #### B MP, PT, CBC, PTT #### [facility] [address] [place] [address] [place] Sodium [Moles/Vol] 139 mmol/L Normal 136-145 [facility] Comment on above: Performed By: #### B MP, PT, CBC, PTT #### [facility] [address] Urea nitrogen [Mass/Vol] 20 mg/dL Normal 7-25 [facility] Comment on above: Performed By: #### B MP, PT, CBC, PTT #### [facility] [address] [place] [address] [place] Basophils Auto (Bld) [#/Vol] Ordered By: Domenico Gipson on 05-07-2023 Basophils (Bld) [#/Vol] 0.0 10*3/uL 0.0-0.2 [facility] Basophils/100 WBC Auto (Bld) Ordered By: Domenico Gipson on 05-07-2023 Basophils/100 WBC (Bld) 0.5 % . [facility] Calcium [Mass/volume] in Ser um or PlasmaOrdered By: Domenico Gipson on 05-07-2023 Calcium [Mass/Vol] 11.2 mg/dL 8.6-10.3 [facility] Carbon dioxide, total [Moles /volume] in Serum or PlasmaOrdered By: Domenico Giposn on 05-07-2023 CO2 [Moles/Vol] 27.5 mmol/L 21.0-31.0 [facility] Chloride [Moles/volume] in S katelin or PlasmaOrdered By: Domenico Gipson on 05-07-2023 Chloride [Moles/Vol] 106 mmol/L 98-107 [facility] Complete Blood Count Auto Di ffon 05-07-2023 Basophils (Bld) [#/Vol] 0.0 10*3/uL Normal 0.0-0.2 [facility] Comment on above: Result Comment: PERF ORMED BY: [facility] [address] [place] [address] PATHOLOGIST PRODUCT ASSURANCE ENGINEER AASHISH FLETCHER M.D. Performed By: #### B MP, PT, CBC, PTT #### [facility] [address] Basophils/100 WBC (Bld) 0.5 % Normal . [facility] Comment on above: Performed By: #### B MP, PT, CBC, PTT #### [address] Eosinophils (Bld) [#/Vol] 0.0 10*3/uL Normal 0.0-0.45 [facility] Comment on above: Performed By: #### B MP, PT, CBC, PTT #### [address] Eosinophils/100 WBC (Bld) 0.4 % Normal . [facility] Comment on above: Performed By: #### B MP, PT, CBC, PTT #### [address] Erythrocyte distribution width (RBC) [Ratio] 14.8 % Normal 12.0-14.8 [facility] Comment on above: Performed By: #### B MP, PT, CBC, PTT #### [address] Hematocrit (Bld) [Volume fraction] 47.8 % Normal 38.8-50.0 [facility] Comment on above: Performed By: #### B MP, PT, CBC, PTT #### [address] Hemoglobin (Bld) [Mass/Vol] 16.2 g/dL Normal 13.0-17.0 [facility] Comment on above: Performed By: #### B MP, PT, CBC, PTT #### [address] Lymphocytes (Bld) [#/Vol] 2.0 10*3/uL Normal 1.00-4.8 [facility] Comment on above: Performed By: #### B MP, PT, CBC, PTT #### [address] Lymphocytes/100 WBC (Bld) 32.1 % Normal . [facility] Comment on above: Performed By: #### B MP, PT, CBC, PTT #### [address] MCH (RBC) [Entitic mass] 30.0 pg Normal 27.5-35.2 [facility] Comment on above: Performed By: #### B MP, PT, CBC, PTT #### [address] MCV (RBC) [Entitic vol] 88.4 fL Normal 83.5-101 [facility] Comment on above: Performed By: #### B MP, PT, CBC, PTT #### [address] Mean Corpuscular HGB Conc 33.9 g/dL Normal 32.5-35.6 [facility] Comment on above: Performed By: #### B MP, PT, CBC, PTT #### [address] Monocytes (Bld) [#/Vol] 0.8 10*3/uL Normal 0.0-0.8 [facility] Comment on above: Performed By: #### B MP, PT, CBC, PTT #### [address] Monocytes/100 WBC (Bld) 12.9 % Normal . [facility] Comment on above: Performed By: #### B MP, PT, CBC, PTT #### [address] Neutrophils (Bld) [#/Vol] 3.4 10*3/uL Normal 1.8-7.7 [facility] Comment on above: Performed By: #### B MP, PT, CBC, PTT #### [address] Neutrophils/100 WBC (Bld) 54.1 % Normal . [facility] Comment on above: Performed By: #### B MP, PT, CBC, PTT #### [address] NRBC% 0.1 /100{WBC} Normal 0-0.5 [facility] Comment on above: Performed By: #### B MP, PT, CBC, PTT #### [facility] [address] Platelet mean volume (Bld) [Entitic vol] 6.9 fL Normal 6.6-10.1 [facility] Comment on above: Performed By: #### B MP, PT, CBC, PTT #### [facility] [address] Platelets (Bld) [#/Vol] 232 10*3/uL Normal 150-450 [facility] Comment on above: Performed By: #### B MP, PT, CBC, PTT #### [facility] [address] RBC (Bld) [#/Vol] 5.41 10*6/uL Normal 3.90-5.60 [facility] Comment on above: Performed By: #### B MP, PT, CBC, PTT #### [facility] [address] WBC (Bld) [#/Vol] 6.4 10*3/uL Normal 4.1-10.5 [facility] Comment on above: Performed By: #### B MP, PT, CBC, PTT #### [facility] [address] Creatinine [Mass/volume] in Serum or PlasmaOrdered By: Domenico Gipson on 05-07-2023 Creatinine [Mass/Vol] 1.02 mg/dL 0.70-1.30 [facility] ECG 12 lead ECGon 05-07-2023 ECG 12 lead ECG [facility] [address] [place] [address] Electrocardiograph Report Signed Patient: Padmini Lloyd MR#: [id number] : 1950 Acct:[id number] Age/Sex: 73 / M ADM Date: 05/07/23 Loc: PS Room: Type: [facility] Attending Dr: Domenico Gipson MD Ordering Provider: Domenico Gipson MD Date of Service: 05/07/2310/25/825 ECG/ECG 12 lead ECG: PST Copies to: Test Reason : Blood Pressure : / mmHG Vent. Rate : 075 BPM Atrial Rate : 075 BPM P-R Int : 166 ms QRS Dur : 106 ms QT Int : 380 ms P-R-T Axes : 016 -26 046 degrees QTc Int : 424 ms Normal sinus rhythm Minimal voltage criteria for LVH, may be normal variant Possible Anterior infarct , age undetermined Abnormal ECG No previous ECGs available Confirmed by MATHEW CALIX [facility] ([id number]) on 05/07/2023 2:29:29 PM Referred By: APURVA Electronically Signed By:JAYDEN GLASER MD [facility] Transcribed By: GIANNI Signed By Jimmie Glaser MD 05/07/23 1429 Normal [facility] Eosinophils Auto (Bld) [#/Vo l]Ordered By: Domenico Gipson on 05-07-2023 Eosinophils (Bld) [#/Vol] 0.0 10*3/uL 0.0-0.45 [facility] Eosinophils/100 WBC Auto (Bl d)Ordered By: Domenico Gipson on 05-07-2023 Eosinophils/100 WBC (Bld) 0.4 % . [facility] Erythrocyte distribution wid th Auto (RBC) [Ratio]Ordered By: Domenico Gipson on 05-07-2023 Erythrocyte distribution width (RBC) [Ratio] 14.8 % 12.0-14.8 [facility] Glucose [Mass/volume] in Ser um or PlasmaOrdered By: Domenico Gipson on 05-07-2023 Glucose [Mass/Vol] 92 mg/dL 70-100 [facility] Comment on above: ADA recommended refe rence rangeRandom Glucose Reference Range is dependent on time and content of last meal. Glucose of more than 200 mg/dL in a nonstressed, ambulatory subject supports the diagnosis of Diabetes Mellitus. Hematocrit Auto (Bld) [Volum e fraction]Ordered By: Domenico Gipson on 05-07-2023 Hematocrit (Bld) [Volume fraction] 47.8 % 38.8-50.0 [facility] Hemoglobin [Mass/volume] in BloodOrdered By: Domenico Gipson on 05-07-2023 Hemoglobin (Bld) [Mass/Vol] 16.2 g/dL 13.0-17.0 [facility] INR in Platelet poor plasma by Coagulation assayOrdered By: Domenico Gipson on 05-07-2023 INR Coag (PPP) [Relative time] 3.1 {INR} [facility] Comment on above: INR Therapeutic Rang e A) Pre- and Peroperative OAT started two weeks before surgery. NOT HIP SURGERY: 1.5 - 2.5 HIP SURGERY: 2 - 3B) Primary and secondary prevention of venous THROMBOSIS: 2 - 3C) Active venous thrombosis, pulmonary embolismand prevention of recurrent venous thrombosis: 2 - 3D) Prevention of arterial thromboembolismincluding patients with mechanical heart valves: 3 - 4.5 Leukocytes [#/volume] correc denise for nucleated erythrocytes in Blood by Automated counOrdered By: Domenico Gipson on 05-07-2023 WBC corrected for nucl RBC Auto (Bld) [#/Vol] 6.4 10*3/uL 4.1-10.5 [facility] Lymphocytes Auto (Bld) [#/Vo l]Ordered By: Domenico Gipson on 05-07-2023 Lymphocytes (Bld) [#/Vol] 2.0 10*3/uL 1.00-4.8 [facility] Lymphocytes/100 WBC Auto (Bl d)Ordered By: Domenico Gipson on 05-07-2023 Lymphocytes/100 WBC (Bld) 32.1 % . [facility] MCH Auto (RBC) [Entitic mass ]Ordered By: Domenico Gipson on 05-07-2023 MCH (RBC) [Entitic mass] 30.0 pg 27.5-35.2 [facility] MCHC Auto (RBC) [Mass/Vol]Or dered By: Domenico Gipson on 05-07-2023 MCHC (RBC) [Mass/Vol] 33.9 g/dL 32.5-35.6 [facility] MCV Auto (RBC) [Entitic vol] Ordered By: Domenico Gipson on 05-07-2023 MCV (RBC) [Entitic vol] 88.4 fL 83.5-101 [facility] Monocytes Auto (Bld) [#/Vol] Ordered By: Domenico Gipson on 05-07-2023 Monocytes (Bld) [#/Vol] 0.8 10*3/uL 0.0-0.8 [facility] Monocytes/100 WBC Auto (Bld) Ordered By: Domenico Gipson on 05-07-2023 Monocytes/100 WBC (Bld) 12.9 % . [facility] Neutrophils Auto (Bld) [#/Vo l]Ordered By: Domenico Gipson on 05-07-2023 Neutrophils (Bld) [#/Vol] 3.4 10*3/uL 1.8-7.7 [facility] Neutrophils/100 WBC Auto (Bl d)Ordered By: Domenico Gipson on 05-07-2023 Neutrophils/100 WBC (Bld) 54.1 % . [facility] No Panel InformationOrdered By: Domenico Gipson on 05-07-2023 Estimated GFR (CKD-EPI) > 60.0 mL/Min [facility] Creatinine Clearance (Chem N/A [facility] Nucleated erythrocytes [Pres ence] in Blood by Automated countOrdered By: Domenico Gipson on 05-07-2023 Nucleated RBC Auto Ql (Bld) 0.1 /100{WBC} 0-0.5 [facility] Partial Thromboplastin Timeo n 05-07-2023 aPTT Coag (Bld) [Time] 45.6 s High 25.1-36.5 [facility] Comment on above: Result Comment: A he matocrit value greater than 55% may lead to inaccurate results in coagulation testing. Patients having hematocrit values >55% require a special collection tube for coagulation studies. Please contact the laboratory at [phone] for redraw instructions. PERFORMED BY: [place] [id number] PATHOLOGIST PRODUCT ASSURANCE ENGINEER AASHISH FLETCHER M.D. Performed By: #### B MP, PT, CBC, PTT #### [address] Platelet mean volume Auto (B ld) [Entitic vol]Ordered By: Domenico Gipson on 05-07-2023 Platelet mean volume (Bld) [Entitic vol] 6.9 fL 6.6-10.1 [facility] Platelets Auto (Bld) [#/Vol] Ordered By: Domenico Gipson on 05-07-2023 Platelets (Bld) [#/Vol] 232 10*3/uL 150-450 [facility] Potassium [Moles/volume] in Serum or PlasmaOrdered By: Domenico Gipson on 05-07-2023 Potassium [Moles/Vol] 4.5 mmol/L 3.5-5.1 [facility] Prothrombin Time INRon 05-07 INR Coag (PPP) [Relative time] 3.1 {INR} Normal [facility] Comment on above: Result Comment: INR Therapeutic Range A) Pre- and Peroperative OAT started two weeks before surgery. NOT HIP SURGERY: 1.5 - 2.5 HIP SURGERY: 2 - 3 B) Primary and secondary prevention of venous THROMBOSIS: 2 - 3 C) Active venous thrombosis, pulmonary embolism and prevention of recurrent venous thrombosis: 2 - 3 D) Prevention of arterial thromboembolism including patients with mechanical heart valves: 3 - 4.5 Performed By: #### B MP, PT, CBC, PTT #### [facility] [address] PT Coag (PPP) [Time] 36.3 s High 9.0-12.9 [facility] Comment on above: Result Comment: A he matocrit value greater than 55% may lead to inaccurate results in coagulation testing. Patients having hematocrit values >55% require a special collection tube for coagulation studies. Please contact the laboratory at [phone] for redraw instructions. Performed By: #### B MP, PT, CBC, PTT #### [facility] [address] [place] [id number] [facility] Prothrombin time (PT)Ordered By: Domenico Gipson on 05-07-2023 PT Coag (PPP) [Time] 36.3 s 9.0-12.9 [facility] Comment on above: A hematocrit value g reater than 55% may lead to inaccurate results in coagulation testing. Patients having hematocrit values >55% require a special collection tube for coagulation studies. Please contact the laboratory at [phone] for redraw instructions. RBC Auto (Bld) [#/Vol]Ordere d By: Domenico Gipson on 05-07-2023 RBC (Bld) [#/Vol] 5.41 10*6/uL 3.90-5.60 [facility] Serum or plasma anion gap de terminationOrdered By: Domenico Gipson on 05-07-2023 Anion gap [Moles/Vol] 10.0 mmol/L 6.0-15.0 [facility] Sodium [Moles/volume] in Ser um or PlasmaOrdered By: Domenico Gipson on 05-07-2023 Sodium [Moles/Vol] 139 mmol/L 136-145 [facility] Urea nitrogen [Mass/volume] in Serum or PlasmaOrdered By: Domenico Gipson on 05-07-2023 Urea nitrogen [Mass/Vol] 20 mg/dL 7-25 [facility] WBC Auto (Bld) [#/Vol]Ordere d By: Domenico Gipson on 05-07-2023 WBC (Bld) [#/Vol] 6.4 10*3/uL 4.1-10.5 [facility] Consultation Noteon 05-01-20 23 Consultation Note [id number]:127 Normal [facility] Consent for Procedure/Surger yon 04-30-2023 Consent for Procedure/Surgery [id number]:127 [facility] Ambulatory Visit Summaryon 0 04-29-2023 Ambulatory Visit Summary PADMINI LLOYD :1950 Visit Date:04/29/2023 Ambulatory Visit Instructions Your Diagnosis History of UTI Bladder neck contracture H/O prostate cancer Asymptomatic microscopic hematuria Bladder stones Your Care Team Attending Physician - Domenico GIPSON MD Primary Care Physician - JUANA CALIX, JARRED Rice This Is Your Medications List Contact prescribing physician if questions or concerns cranberry (Cranberry) cyanocobalamin (Vitamin B12) doxycycline (doxycycline hyclate 100 mg Cap) ergocalciferol (Vitamin D) losartan (losartan 100 mg Tab) multivitamin (Multi Vitamin+) warfarin (warfarin 6 mg Tab) zinc sulfate (Zinc) Procedures Performed Litholapaxy of bladder calculus (03/14/2022), Cystourethroscopy with dilation of urethral stricture (02/08/2022), Cystoscopy (08/24/2020), Endoscopic transurethral electrovaporization of prostate (05/15/2017), Transrectal biopsy of prostate using ultrasound (US) guidance (09/07/2016), Brachytherapy (2016), Colonoscopy. Discharge Vitals Heart Rate (Peripheral) 77 Blood Pressure 131/81 Height 183 cm Height 72 in Weight 100 kg Weight 220 lb BMI 29.86 What to do next Scheduled Follow-Up Appointments Saturday 9:00 AM EST With: MARQUIS GARCIA, ESMER Grady Where: [facility] Patient Educationon 04-29-20 23 Patient Education Oncology Prostate Cancer Screening Prostate cancer screening is testing that is done to check for the presence of prostate cancer in men. The prostate gland is a walnut-sized gland that is located below the bladder and in front of the rectum in males. The function of the prostate is to add fluid to semen during ejaculation. Prostate cancer is one of the most common types of cancer in men. Who should have prostate cancer screening? Screening recommendations vary based on age and other risk factors, as well as between the professional organizations who make the recommendations. In general, screening is recommended if: ? You are age 50 to 70 and have an average risk for prostate cancer. You should talk with your health care provider about your need for screening and how often screening should be done. Because most prostate cancers are slow growing and will not cause , screening in this age group is generally reserved for men who have a 10- to 15-year life expectancy. ? You are younger than age 50, and you have these risk factors: ? Having a father, brother, or uncle who has been diagnosed with prostate cancer. The risk is higher if your family member's cancer occurred at an early age or if you have multiple family members with prostate cancer at an early age. ? Being a male who is Black or is of [place] or sub-Saharan descent. In general, screening is not recommended if: ? You are younger than age 40. ? You are between the ages of 40 and 49 and you have no risk factors. ? You are 70 years of age or older. At this age, the risks that screening can cause are greater than the benefits that it may provide. If you are at high risk for prostate cancer, your health care provider may recommend that you have screenings more often or that you start screening at a younger age. How is screening for prostate cancer done? The recommended prostate cancer screening test is a blood test called the prostate-specific antigen (PSA) test. PSA is a protein that is made in the prostate. As you age, your prostate naturally produces more PSA. Abnormally high PSA levels may be caused by: ? Prostate cancer. ? An enlarged prostate that is not caused by cancer (benign prostatic hyperplasia, or BPH). This condition is very common in older men. ? A prostate gland infection (prostatitis) or urinary tract infection. ? Certain medicines such as male hormones (like testosterone) or other medicines that raise testosterone levels. A rectal exam may be done as part of prostate cancer screening to help provide information about the size of your prostate gland. When a rectal exam is performed, it should be done after the PSA level is drawn to avoid any effect on the results. Depending on the PSA results, you may need more tests, such as: ? A physical exam to check the size of your prostate gland, if not done as part of screening. ? Blood and imaging tests. ? A procedure to remove tissue samples from your prostate gland for testing (biopsy). This is the only way to know for certain if you have prostate cancer. What are the benefits of prostate cancer screening? ? Screening can help to identify cancer at an early stage, before symptoms start and when the cancer can be treated more easily. ? There is a small chance that screening may lower your risk of dying from prostate cancer. The chance is small because prostate cancer is a slow-growing cancer, and most men with prostate cancer from a different cause. What are the risks of prostate cancer screening? The main risk of prostate cancer screening is diagnosing and treating prostate cancer that would never have caused any symptoms or problems. This is called overdiagnosisand overtreatment. PSA screening cannot tell you if your PSA is high due to cancer or a different cause. A prostate biopsy is the only procedure to diagnose prostate cancer. Even the results of a biopsy may not tell you if your cancer needs to be treated. Slow-growing prostate cancer may not need any treatment other than monitoring, so diagnosing and treating it may cause unnecessary stress or other side effects. Questions to ask your health care provider ? When should I start prostate cancer screening? ? What is my risk for prostate cancer? ? How often do I need screening? ? What type of screening tests do I need? ? How do I get my test results? ? What do my results mean? ? Do I need treatment? Where to find more information ? The [place] [employer]: www.cancer.org ? [place] [employer] [employer]: www.auanet.org Contact a health care provider if: ? You have difficulty urinating. ? You have pain when you urinate or ejaculate. ? You have blood in your urine or semen. ? You have pain in your back or in the area of your prostate. Summary ? Prostate cancer is a common type of cancer in men. The prostate gland is located below the bladder and in front of the rectum. This gland adds flu (more content not included)... Normal [facility] Urology Office/Clinic Noteon 04-29-2023 Urology Office/Clinic Note Chief Complaint Pt is here for cystoscopy HPI Staff Cysto ABX TAKEN. Pt currently on ABX for UTI by MANUEL. History of Present Illness Tests reviewed: none I have reviewed the previous health record information and history for this patient from . I have reviewed and verified the staff HPI to be accurate for this encounter. There have been no associated fever, chills, flank pain, or blood in the urine. Denies any urinary infections since last encounter. Review of Systems PHQ Score Initial Depression Screen Score: 0 ROS - Provider Constitutional: denies weight loss, denies hot flashes. Eyes: denies eye problems. Gastrointestinal: denies nausea, denies vomiting. Cardiovascular: denies chest pain or angina. Integumentary: no dryness Musculoskeletal: denies musculoskeletal symptoms. ENMT: denies otolaryngeal symptoms. Respiratory: no shortness of breath. Heme/Lymph: denies easy bleeding tendency, denies easy bruising tendency. Psychiatric: no confusion, no anxiety. Genitourinary: See HPI. Physical Exam Vitals & Measurements HR: 77(Peripheral) BP: 131/81 HT: 72 in HT: 183 cm WT: 100 kg WT: 220 lb BMI: 29.86 General Appearance: alert, no distress, well nourished, well developed male. Genitourinary: normal scrotum, normal testes, normal urethra, normal epididymis, normal vas deferens/spermatic cord. Flank Pain: none. Bladder: nonpalpable. Prostate: normal prostate, estimated weight 35 gms, no hard nodule observed. Procedure Operative Information Anesthesia Type: Local Procedure: Local Cystoscopy Complications: None Surgical risks, benefits, details of the procedure have been explained to the patient. Full informed consent has been obtained. Intraoperative Information Prepped: Patient is brought back to the endoscopy suite. Patient is placed in supine position. Patient prepped in the usual fashion with Betadine solution. 2% Xylocaine Jelly is placed per Urethra. After waiting several minutes, the Cystoscope is introduced. The Urethra is: Normal up until the prostate The Prostatic Urethra is: Obstructedand hypertrophy, calcinations The Bladder: _, Trabeculated: _ The Ureteral orifices: Show efflux of clear urine Specimens Removed: None Removal: Cystoscope is removed. The patient tolerated it well. Postoperative Information Patient is discharged home with antibiotic coverage. Follow up arranged. Assessment/Plan 1. History of UTI (Z87.440: Personal history of urinary (tract) infections) U.Cx. 08/31/22 - >100,000 Enterococcus faecalis U.Cx. 02/14/23 - 90,000 Enterococcus faecalis, Tx'd w/Doxycycline 100mg BID x7days. Sx improved. Then returned about a week later. Repeat IO UA showed trace leuks only so [facility]PC recommended no treatment at that time. Pt continues to have burning, dark urine, and foul smelling urine. UA at prior OV showed small leuks and trace blood. Tx'd w/ Amoxicillin 875mg BID x 10 days. UA today shows small leuks and trace-lysed blood. Pt states that he feels like he does have an infection, wanted to come in due to having a scope coming up and wanted to be safe & get started on abx so he didn't have to cancel/postpone cysto. Advised pt that this was a good thought. Will send for cx. Start empiric abx. Can hold off on the abx that were given for the cysto, since we are going to start him on abx for an infection today (doesn't need to take both). Pt requesting a specific abx, Cefuroxime. Says DLS gave this last year and worked awesome. Was tx'd w/ Cefuroxime 250mg BID x10 days. 2. 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 Showed bladder neck contracture and a calculus right at the bladder neck. S/p Cysto/Litholapaxy of BNC & fulguration of prostate done 03/14/22 for bladder neck contracture and calculus. IPSS 15(3), CLAIR 12, PVR 162cc Pt has occasional leakage with strenuous activity, wears a pad for protection. Pt had IO cysto today w/o complications. Will schedule cysto w/Laser prostatic stones/TURP. The risks and benefits for cystoscopy have been discussed. The risks include bleeding, infection, and irritation of the bladder and urinary channel, among others. The patient, after being informed of procedural details and after questions have been answered, wishes to proceed. Full informed consent has been obtained. Will order Local anesthesia. 3. H/O prostate cancer (Z85.46: Personal history of malignant neoplasm of prostate) S/P Brachytherapy done 11/28/16. Last seen by Dr. Garcia 05/16/22, says he will no longer be following w Dr Garcia for prostate cancer but will see him once more for hx lymphoma. PSA: 06/21/21 - 0.1 11/13/21 - 0.03 08/21/22 - 0.02 Will continue to monitor. No changes in plan. 4. Asymptomatic microscopic hematuria (R31.21: Asymptomatic microscopic hematuria) UA today shows trace-lysed. Previously small on 01/16/22. Previously on 08/28/22 UA s (more content not included)... Normal [facility] Comment on above: Result Comment: Elec tronically Signed By: Domenico GIPSON MD\.br\Date and Time Signed: 04/29/23 08:24 EDT\.br\Electronically Co-Signed By: Kavya Garza\.br\Date and Time Co-Signed: 04/29/23 07:51 EDT C Urineon 04-26-2023 Bacteria identified Cx Nom (U) Microbiology PROCEDURE: Urine Culture [R1] SOURCE: U CleanCatch BODY SITE: COLLECTED DATE/TIME: 04/24/2023 14:47 EDT RECEIVED DATE/TIME: 04/24/2023 18:49 EDT START DATE/TIME: 04/24/2023 18:49 EDT FREE TEXT SOURCE: ESMER MENDOZA PA-C, PA-C, ESMER Grady FINAL REPORTS Final Report [] Verified Date/Time: 04/26/2023 11:12 EDT >100,000 cfu/ml Enterococcus faecalis 1,000 cfu/ml Mixed skin contaminants SUSCEPTIBILITY RESULTS _ LEGEND: S=Susceptible, N/R=Not Reported, Blank=Data not available, or drug not advisable or tested, I=Intermediate, ESBL=Extended spectrum beta-lactamase, R=Resistant, TFG=Thymidine-dependent strain, GRETTA=Beta-lactamase positive, CORAZON=mcg/m;(mg/L), S*=Predicted susceptible interp, R*=Predicted resistant interp Entfaeca Antibiotic CORAZON Dilutn CORAZON Interp Ampicillin <=2 S Ciprofloxacin 2 I Daptomycin 4 S Levofloxacin 2 S Linezolid <=2 S Nitrofurantoin <=32 S Penicillin 8 S Rifampin >2 R Tetracycline <=4 S Vancomycin 2 S Performing Locations R1: This test was performed at: [facility], [address] [place] [address], [id number] , , [facility] Comment on above: Performed By: #### 1 [id number] #### [facility] [address] [place] [id number] Patient Educationon 04-24-20 Patient Education Nephrology Dietary Guidelines to Help Prevent Kidney Stones Kidney stones are deposits of minerals and salts that form inside your kidneys. Your risk of developing kidney stones may be greater depending on your diet, your lifestyle, the medicines you take, and whether you have certain medical conditions. Most people can lower their chances of developing kidney stones by following the instructions below. Your dietitian may give you more specific instructions depending on your overall health and the type of kidney stones you tend to develop. What are tips for following this plan? Reading food labels ? Choose foods with no salt added or low-salt labels. Limit your salt (sodium) intake to less than 1,500 mg a day. ? Choose foods with calcium for each meal and snack. Try to eat about 300 mg of calcium at each meal. Foods that contain 200?500 mg of calcium a serving include: ? 8 oz (237 mL) of milk, damtddf-yjsfrgeuztgo-tlyjt milk, and calcium-fortifiedfruit juice. Calcium-fortified means that calcium has been added to these drinks. ? 8 oz (237 mL) of kefir, yogurt, and soy yogurt. ? 4 oz (114 g) of tofu. ? 1 oz (28 g) of cheese. ? 1 cup (150 g) of dried figs. ? 1 cup (91 g) of cooked broccoli. ? One 3 oz (85 g) can of sardines or mackerel. Most people need 1,000?1,500 mg of calcium a day. Talk to your dietitian about how much calcium is recommended for you. Shopping ? Buy plenty of fresh fruits and vegetables. Most people do not need to avoid fruits and vegetables, even if these foods contain nutrients that may contribute to kidney stones. ? When shopping for convenience foods, choose: ? Whole pieces of fruit. ? Pre-made salads with dressing on the side. ? Low-fat fruit and yogurt smoothies. ? Avoid buying frozen meals or prepared deli foods. These can be high in sodium. ? Look for foods with live cultures, such as yogurt and kefir. ? Choose high-fiber grains, such as whole-wheat breads, oat bran, and wheat cereals. Cooking ? Do not add salt to food when cooking. Place a salt shaker on the table and allow each person to add his or her own salt to taste. ? Use vegetable protein, such as beans, textured vegetable protein (TVP), or tofu, instead of meat in pasta, casseroles, and soups. Meal planning ? Eat less salt, if told by your dietitian. To do this: ? Avoid eating processed or pre-made food. ? Avoid eating fast food. ? Eat less animal protein, including cheese, meat, poultry, or fish, if told by your dietitian. To do this: ? Limit the number of times you have meat, poultry, fish, or cheese each week. Eat a diet free of meat at least 2 days a week. ? Eat only one serving each day of meat, poultry, fish, or seafood. ? When you prepare animal protein, cut pieces into small portion sizes. For most meat and fish, one serving is about the size of the palm of your hand. ? Eat at least five servings of fresh fruits and vegetables each day. To do this: ? Keep fruits and vegetables on hand for snacks. ? Eat one piece of fruit or a handful of berries with breakfast. ? Have a salad and fruit at lunch. ? Have two kinds of vegetables at dinner. ? Limit foods that are high in a substance called oxalate. These include: ? Spinach (cooked), rhubarb, beets, sweet potatoes, and [place] chard. ? Peanuts. ? Potato chips, mongolian fries, and baked potatoes with skin on. ? Nuts and nut products. ? Chocolate. ? If you regularly take a diuretic medicine, make sure to eat at least 1 or 2 servings of fruits or vegetables that are high in potassium each day. These include: ? Avocado. ? Banana. ? [place], prune, carrot, or tomato juice. ? Baked potato. ? Cabbage. ? Beans and split peas. Lifestyle ? Drink enough fluid to keep your urine pale yellow. This is the most important thing you can do. Spread your fluid intake throughout the day. ? If you drink alcohol: ? Limit how much you use to: ? 0?1 drink a day for women who are not . ? 0?2 drinks a day for men. ? Be aware of how much alcohol is in your drink. In the [place] one drink equals one 12 oz bottle of beer (355 mL), one 5 oz glass of wine (148 mL), or one 1? oz glass of hard liquor (44 mL). ? Lose weight if told by your health care provider. Work with your dietitian to find an eating plan and weight loss strategies that work best for you. General information ? Talk to your health care provider and dietitian about taking daily supplements. You may be told the following depending on your health and the cause of your kidney stones: ? Not to take supplements with vitamin C. ? To take a calcium supplement. ? To take a daily probiotic supplement. ? To take other supplements such as magnesium, fish oil, or vitamin B6. ? Take piib-mjb-pkgodjn and prescription medicines only as told by your health care provider. These include supplements. What foods should I limit? Limit your in (more content not included)... 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 waking through the night every 2 hours again *CORY- (Small) on U/A today Past UTI Cefuroxime Axetil 250 mg every 12 hrs for 10 days 03/28/22 Dr. Rodriguez, He states this worked very well for him. Dysuria: _a little bit, burning on the tip of his penis off on on Incomplete bladder emptying: _sometimes Hematuria: (Trace-lysed) on U/A today Frequency: 3-4 times a day Urgency: denies Nocturia: every 2 hours Stream: _denies hesitation, strong at first then a weak stream, then sprays Leaking: _denies Post void dripping: denies Wearing pads/ Depends: _pads every day Urge incontinence: _sometimes Stress incontinence: _lifting he likes, rolling a certain Incontinence without Sensory Awareness: _denies Abdominal pain: denies Flank pain: denies Sexual complaints: denies History of Present Illness staff HPI reviewed and agree. Review of Systems PHQ Score Initial Depression Screen Score: 0 no fever, chills, malaise, myalgia. no rash/lesions. no chest pain, palpitations, or SOB. no abdominal pain, nausea, vomiting. no unilateral calf swelling, redness, pain Physical Exam Vitals & Measurements T: 36.6 ?C(Temporal Artery) BP: 138/84 HT: 72 in HT: 183 cm WT: 100 kg WT: 220 lb BMI: 29.86 General: nontoxic, NAD Mouth: moist mucosa Lungs: normal respiratory effort Cardio: regular rate, good distal perfusion Abdomen: nondistended, no suprapubic distention or tenderness, no CVA tenderness Neurologic: Grossly normal Skin: No rashes or suspicious lesions Assessment/Plan 1. History of UTI (Z87.440: Personal history of urinary (tract) infections) U.Cx. 08/31/22 - >100,000 Enterococcus faecalis U.Cx. 02/14/23 - 90,000 Enterococcus faecalis, Tx'd w/Doxycycline 100mg BID x7days. Sx improved. Then returned about a week later. Repeat IO UA showed trace leuks only so [facility] recommended no treatment at that time. Pt continues to have burning, dark urine, and foul smelling urine. UA at prior OV showed small leuks and trace blood. Tx'd w/ Amoxicillin 875mg BID x 10 days. UA today shows small leuks and trace-lysed blood. Pt states that he feels like he does have an infection, wanted to come in due to having a scope coming up and wanted to be safe & get started on abx so he didn't have to cancel/postpone cysto. Advised pt that this was a good thought. Will send for cx. Start empiric abx. Can hold off on the abx that were given for the cysto, since we are going to start him on abx for an infection today (doesn't need to take both). Pt requesting a specific abx, Cefuroxime. Says DLS gave this last year and worked awesome. -Will send Cefuroxime 250mg BID x10 days to [facility] in [place]. Discussed the medication side effects, and the patient will monitor closely for these, as well as for symptom improvement. If severe side effects occur, the medication should be stopped and the office notified. 2. 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 Showed bladder neck contracture and a calculus right at the bladder neck. S/p Cysto/Litholapaxy of BNC & fulguration of prostate done 03/14/22 for bladder neck contracture and calculus. IPSS 15(3), CLAIR 12, PVR 162cc Pt has occasional leakage with strenuous activity, wears a pad for protection. Does not find this bothersome enough to warrant any sort of treatment at this time. Pt has a cysto scheduled. No changes in plan. 3. H/O prostate cancer (Z85.46: Personal history of malignant neoplasm of prostate) S/P Brachytherapy done 11/28/16. Last seen by Dr. Garcia 05/16/22, says he will no longer be following w Dr Garcia for prostate cancer but will see him once more for hx lymphoma. PSA: 06/21/21 - 0.1 11/13/21 - 0.03 08/21/22 - 0.02 Will continue to monitor. No changes in plan. 4. Asymptomatic microscopic hematuria (R31.21: Asymptomatic microscopic hematuria) UA today shows trace-lysed. Previously small on 01/16/22. Previously on 08/28/22 UA showed trace-intact. Pt has a cysto scheduled. No changes in plan. 5. Bladder stones (N21.0: Calculus in bladder) Pt denies any personal hx of kidney stones, only bladder stones. Pt states his stream is not straight. Has been spraying. This happened the last 2 times he had bladder stones. Follow-up With When Contact Information ESMER MENDOZA PA-C, URL [address] [place] [address] Additional Instructions: Cont with Sched Cysto w/[facility] Patient Education Dietary Guidelines to Help Prevent Kidney Stones I, Kavya Garza, personally scribed for Esmer Mendoza PA-C on 04/24/2023 14:32:44. . Documentation recorde (more content not included)... Normal [facility] Comment on above: Result Comment: Elec tronically Signed By: ESMER MENDOZA PA-C.br\Date and Time Signed: 04/24/23 14:36 EDT\.br\Electronically Co-Signed By: Kavya Garza\.br\Date and Time Co-Signed: 04/24/23 14:32 EDT Patient Educationon 03-12-20 Patient Education Nephrology Dietary Guidelines to Help Prevent Kidney Stones Kidney stones are deposits of minerals and salts that form inside your kidneys. Your risk of developing kidney stones may be greater depending on your diet, your lifestyle, the medicines you take, and whether you have certain medical conditions. Most people can lower their chances of developing kidney stones by following the instructions below. Your dietitian may give you more specific instructions depending on your overall health and the type of kidney stones you tend to develop. What are tips for following this plan? Reading food labels ? Choose foods with no salt added or low-salt labels. Limit your salt (sodium) intake to less than 1,500 mg a day. ? Choose foods with calcium for each meal and snack. Try to eat about 300 mg of calcium at each meal. Foods that contain 200?500 mg of calcium a serving include: ? 8 oz (237 mL) of milk, rpbihnx-qrjuhrkmeswy-arojd milk, and calcium-fortifiedfruit juice. Calcium-fortified means that calcium has been added to these drinks. ? 8 oz (237 mL) of kefir, yogurt, and soy yogurt. ? 4 oz (114 g) of tofu. ? 1 oz (28 g) of cheese. ? 1 cup (150 g) of dried figs. ? 1 cup (91 g) of cooked broccoli. ? One 3 oz (85 g) can of sardines or mackerel. Most people need 1,000?1,500 mg of calcium a day. Talk to your dietitian about how much calcium is recommended for you. Shopping ? Buy plenty of fresh fruits and vegetables. Most people do not need to avoid fruits and vegetables, even if these foods contain nutrients that may contribute to kidney stones. ? When shopping for convenience foods, choose: ? Whole pieces of fruit. ? Pre-made salads with dressing on the side. ? Low-fat fruit and yogurt smoothies. ? Avoid buying frozen meals or prepared deli foods. These can be high in sodium. ? Look for foods with live cultures, such as yogurt and kefir. ? Choose high-fiber grains, such as whole-wheat breads, oat bran, and wheat cereals. Cooking ? Do not add salt to food when cooking. Place a salt shaker on the table and allow each person to add his or her own salt to taste. ? Use vegetable protein, such as beans, textured vegetable protein (TVP), or tofu, instead of meat in pasta, casseroles, and soups. Meal planning ? Eat less salt, if told by your dietitian. To do this: ? Avoid eating processed or pre-made food. ? Avoid eating fast food. ? Eat less animal protein, including cheese, meat, poultry, or fish, if told by your dietitian. To do this: ? Limit the number of times you have meat, poultry, fish, or cheese each week. Eat a diet free of meat at least 2 days a week. ? Eat only one serving each day of meat, poultry, fish, or seafood. ? When you prepare animal protein, cut pieces into small portion sizes. For most meat and fish, one serving is about the size of the palm of your hand. ? Eat at least five servings of fresh fruits and vegetables each day. To do this: ? Keep fruits and vegetables on hand for snacks. ? Eat one piece of fruit or a handful of berries with breakfast. ? Have a salad and fruit at lunch. ? Have two kinds of vegetables at dinner. ? Limit foods that are high in a substance called oxalate. These include: ? Spinach (cooked), rhubarb, beets, sweet potatoes, and Luxem[place]ger chard. ? Peanuts. ? Potato chips, mongolian fries, and baked potatoes with skin on. ? Nuts and nut products. ? Chocolate. ? If you regularly take a diuretic medicine, make sure to eat at least 1 or 2 servings of fruits or vegetables that are high in potassium each day. These include: ? Avocado. ? Banana. ? [place], prune, carrot, or tomato juice. ? Baked potato. ? Cabbage. ? Beans and split peas. Lifestyle ? Drink enough fluid to keep your urine pale yellow. This is the most important thing you can do. Spread your fluid intake throughout the day. ? If you drink alcohol: ? Limit how much you use to: ? 0?1 drink a day for women who are not . ? 0?2 drinks a day for men. ? Be aware of how much alcohol is in your drink. In the [place] one drink equals one 12 oz bottle of beer (355 mL), one 5 oz glass of wine (148 mL), or one 1? oz glass of hard liquor (44 mL). ? Lose weight if told by your health care provider. Work with your dietitian to find an eating plan and weight loss strategies that work best for you. General information ? Talk to your health care provider and dietitian about taking daily supplements. You may be told the following depending on your health and the cause of your kidney stones: ? Not to take supplements with vitamin C. ? To take a calcium supplement. ? To take a daily probiotic supplement. ? To take other supplements such as magnesium, fish oil, or vitamin B6. ? Take vgmt-pvh-ssrjhuu and prescription medicines only as told by your health care provider. These include supplements. What foods should I limit? Limit your in (more content not included)... Normal [facility] [place] 03-12-2023 Screens [id number]:127 [facility] Screens [id number]:127 [facility] Urology Office/Clinic Noteon 03-12-2023 Urology Office/Clinic Note Chief Complaint UTI symptoms HPI Staff Pt called out office 02/12/23 c/o UTI sx: Urgency, Weak Stream & Nocturia. +C&S Tx'd w/Doxycycline 100mg BID x7days. Pt finished script. Called back on 02/26/23 stating no relief in symptoms. *No Urology Medications PVR 162ml Dysuria: _this morning there was little burning Incomplete bladder emptying: _does not feel like it Hematuria: _denies visible blood Frequency: _every 2 or 2 and a half hours Urgency: _denies Nocturia: _every 2 hours Stream: _not straight goes one way or the other Leaking: _denies Post void dripping: _ Wearing pads/ Depends: _pads Urge incontinence: _lifting or bending over he will leak Incontinence without Sensory Awareness: _denies Abdominal pain: _denies Flank pain: _denies Sexual complaints: _denies Pt last seen in our office 08/28/22 by MANUEL due to Hx of Prostate Cancer, Bladder Neck Contracture, UTI & Microscopic Hematuria. S/P Brachytherapy 11/28/16 History of Present Illness staff HPI reviewed and agree. Review of Systems PHQ Score Initial Depression Screen Score: 0 no fever, chills, malaise, myalgia. no rash/lesions. no chest pain, palpitations, or SOB. no abdominal pain, nausea, vomiting. no unilateral calf swelling, redness, pain Physical Exam Vitals & Measurements HR: 75(Peripheral) BP: 155/94 HT: 72 in HT: 183 cm WT: 100 kg WT: 220 lb BMI: 29.86 General: nontoxic, NAD Mouth: moist mucosa Lungs: normal respiratory effort Cardio: regular rate, good distal perfusion Abdomen: nondistended, no suprapubic distention or tenderness, no CVA tenderness Neurologic: Grossly normal Skin: No rashes or suspicious lesions Assessment/Plan 1. Bladder stones (N21.0: Calculus in bladder) Pt denies any personal hx of kidney stones, only bladder stones. Pt states his stream is not straight. Has been spraying. This happened the last 2 times he had bladder stones. Will schedule cysto w/ [facility]. The risks and benefits for cystoscopy have been discussed. The risks include bleeding, infection, and irritation of the bladder and urinary channel, among others. The patient, after being informed of procedural details and after questions have been answered, wishes to proceed. Full informed consent has been obtained. Will order Local anesthesia. 2. History of UTI (Z87.440: Personal history of urinary (tract) infections) U.Cx. 08/31/22 - >100,000 Enterococcus faecalis U.Cx. 02/14/23 - 90,000 Enterococcus faecalis, Tx'd w/Doxycycline 100mg BID x7days. Sx improved. Then returned about a week later. Repeat IO UA showed trace leuks only so [facility] recommended no treatment at that time. Pt continues to have burning, dark urine, and foul smelling urine. UA today shows small leuks and trace blood. Will send for mircro cx. Will send Amoxicillin 875mg BID x 10 days to pharmacy (allergic to fluoroquinolones, already failed doxy, macrobid unlikely to clear this). Discussed the medication side effects, and the patient will monitor closely for these, as well as for symptom improvement. If severe side effects occur, the medication should be stopped and the office notified. 3. 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 Showed bladder neck contracture and a calculus right at the bladder neck. S/p Cysto/Litholapaxy of BNC & fulguration of prostate done 03/14/22 for bladder neck contracture and calculus. IPSS 15(3), CLAIR 12, PVR 162cc Pt has occasional leakage with strenuous activity, wears a pad for protection. Does not find this bothersome enough to warrant any sort of treatment at this time. 4. H/O prostate cancer (Z85.46: Personal history of malignant neoplasm of prostate) PSA: 06/21/21 - 0.1 11/13/21 - 0.03 08/21/22 - 0.02 S/P Brachytherapy done 11/28/16. Last seen by Dr. Garcia 05/16/22, says he will no longer be following w Dr Garcia for prostate cancer but will see him once more for hx lymphoma. we will need to keep an eye on his PSAs moving fwd. 5. Asymptomatic microscopic hematuria (R31.21: Asymptomatic microscopic hematuria) UA today shows trace-intact. Previously small on 01/16/22. Previously on 08/28/22 UA showed trace-intact. Follow-up With When Contact Information MARQUIS GARCIA, ESMER Grady, URL [address] [place] [address] Additional Instructions: sched cysto w/ [facility] Patient Education Dietary Guidelines to Help Prevent Kidney Stones Documentation recorded by the scribe Kavya Garza accurately reflects the services(s) I performed and decisions made by me. Authenticated by Esmer Mendoza PA-C on 03/12/2023 12:42:17. I, Kavya Garza, personally scribed for Esmer Mendoza PA-C on 03/12/2023 11:22:13. . Problem List/Past Medical History Ongoing Anticoagulated Asymptomatic microscopic hematuria Bladder neck contracture Bladder stones BPH wi (more content not included)... Normal [facility] Comment on above: Result Comment: Elec tronically Signed By: ESMER MENDOZA PA-C\.br\Date and Time Signed: 03/12/23 12:42 EDT\.br\Electronically Co-Signed By: Kavya Garza\.br\Date and Time Co-Signed: 03/12/23 11:22 EDT C Urineon 02-14-2023 Bacteria identified Cx Nom (U) Microbiology PROCEDURE: Urine Culture [R1] SOURCE: U Random BODY SITE: COLLECTED DATE/TIME: 02/12/2023 13:35 EDT RECEIVED DATE/TIME: 02/12/2023 18:27 EDT START DATE/TIME: 02/12/2023 18:27 EDT FREE TEXT SOURCE: ESMER MENDOZA PA-C, PA-C, JENNIFER E FINAL REPORTS Final Report [] Verified Date/Time: 02/14/2023 09:36 EDT 90,000 cfu/ml Enterococcus faecalis SUSCEPTIBILITY RESULTS _ LEGEND: S=Susceptible, N/R=Not Reported, Blank=Data not available, or drug not advisable or tested, I=Intermediate, ESBL=Extended spectrum beta-lactamase, R=Resistant, TFG=Thymidine-dependent strain, GRETTA=Beta-lactamase positive, CORAZON=mcg/m;(mg/L), S*=Predicted susceptible interp, R*=Predicted resistant interp Entfaeca Antibiotic CORAZON Dilutn CORAZON Interp Ampicillin <=2 S Ciprofloxacin <=1 S Daptomycin 4 S Levofloxacin 2 S Linezolid <=2 S Nitrofurantoin <=32 S Penicillin 8 S Rifampin >2 R Tetracycline <=4 S Vancomycin 2 S Performing Locations R1: This test was performed at: [facility], [address] [place] [address], [id number] , , [facility] Comment on above: Performed By: #### [id number] ####[place] [address] CNOVon 11-21-2022 [facility] Office Visit (RADTSA ) -- GABINOPADMINI Roberts ([id number]) 1950 M Date Time Provider Department 11/21/22 11:15 AM Marko GARCIA During your visit today, we recorded the following information about you: Temperature Pulse Respiration Blood pressure 97.6 degrees 87/minute 16/minute 163/89 Weight 109.3 kg Marko Garcia MD 11/28/2022 1:50 PM Signed Radiation Oncology - Follow Up Note PATIENT NAME: Padmini Lloyd PATIENT DIAGNOSIS: 1. Prostate adenocarcinoma, initial PSA 4.66, biopsy Miguel Angel score 3 + 3 = 6 (grade group 1), clinical stage T1c N0 M0 , s/p I-125 prostate seed implant on 11/28/16. 2. 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 Denies any significant new issues or problems. 11/16/21:Doing much better. Had COVID infection earlier this year with significant pulmonary compromise nearly on the ventilator. Has been recuperating well. Recently stopped needing supplemental O2. Denies chest pain. Denies fever chills night sweats. Denies visual change. 05/17/21:Doing well. Vision intact. No diplopia. No significant headache or other changes. Recent ophthalmology exam unremarkable other than some mild posttreatment changes. 03/02/2021:Doing well. Patient has been good. He has had some matting of the left eye in the morning, this is nearly resolved with eyedrops. Denies any pain or headache. No fever or chills. Is very active. RADIOLOGY: MRI orbit 11/15/2022: Since 05/07/2022 the ill-defined subtly enhancing curvilinear soft tissue in the superior left orbit has substantially decreased in size and degree of enhancement. No new intraorbital abnormality. MRI orbit with and without contrast 05/07/2022: Minimal curvilinear enhancing soft tissue superior left orbit stable from November 2021 exam. Markedly improved from October 2020 exam. MRI orbit with and without contrast 11/13/2021: Ill-defined faintly enhancing curvilinear soft tissue superior left orbit similar to slightly decreased in size compared with May scan. Degree of enhancement less pronounced. No other findings. PET/CT 05/11/2021,1. NECK: * No new FDG avid neoplastic process. Interval decreased size in FDG avidity of infiltrative left orbital lesion. Residual left orbital fat stranding demonstrated FDG activity below the blood pool background. Deauville score: 2 2. CHEST: * No FDG avid neoplastic process. Unchanged pleural-based right lower lobe opacity without significant FDG avidity, compatible with scarring/atelectasis. 3. ABDOMEN/PELVIS: * No FDG avid neoplastic process. 4. EXTREMITIES/SKELETON: * No suspicious FDG avid osseous lesion. MRI orbit 05/08/2021, moderate interval improvement. Thin rind of abnormal tissue along superior aspect of left orbit. LABORATORY: PSA 11/15/2022 less than 0.13 PSA (ng/mL) Date Value 08/21/2022 0.02 11/13/2021 0.03 06/21/2021 <0.1 07/18/2020 0.11 07/15/2019 0.21 01/21/2019 0.45 ALLERGIES: ALLERGIES Allergen Reactions Avelox [Moxifloxaci* Mental Status Change Bactrim [Sulfametho* Mental Status Change, Other: See Comments Renal Failure Quinolones Other: See Comments Confusion Sulfa (Sulfonamide * Other: See Comments Abdomin pain MEDICATIONS: Zinc 50 mg tab Take by mouth. Magnesium 250 mg tab Take 250 mg by mouth. losartan (COZAAR) 100 mg tablet Take 100 mg by mouth once daily. cyanocobalamin (VITAMIN B-12) 1,000 mcg tab Take 1,000 mcg by mouth two times a week. warfarin sodium (WARFARIN ORAL) Take by mouth daily as directed. As Directed ergocalciferol, vitamin D2, (VITAMIN D2 ORAL) Take by mouth. Multivitamin capsule Take 1 capsule by mouth once daily. REVIEW OF SYSTEMS NECK: Negative for lumps, goiter, pain and significant neck swelling RESPIRATORY: Negative for cough, hemoptysis, wheezing, COPD, dyspnea or shortness of breath MUSCULOSKELETAL: Negative for joint pain or swelling, back pain or muscle pain SKIN: Negative for lesions, rash, and itching NEURO: No history of headaches, syncope, paralysis, seizures or tremors PHYSICAL EXAM: BP 163/89 Pulse 87 Temp 36.4 ?C (97.6 ?F) Resp 16 Wt 109.3 kg (241 lb) SpO2 97% BMI 35.86 kg/m? KPS: 100 General Appearance: Well appearing, alert, in no acute distress, well-hydrated, well nourished.. Skin: Skin color, texture, turgor normal, no suspicious rashes or lesions. Eyes: No obvious scleral lesions. No exophthalmos Extraocular movements intact. Neck: No adenopathy or masses notable Abdomen: Soft nontender without sign annoyingly Lymph nodes: No neck supraclavicular or axillary lymphadenopathy ASSESSMENT/PLAN: 1. Prostate adenocarcinoma, initial PSA 4.66, biopsy Miguel Angel score 3 + 3 = 6 (grade group 1), clinical stage T1c N0 (more content not included)... Normal [facility] CREATININEon 11-15-2022 Creatinine [Mass/Vol] 1.21 mg/dL Normal 0.70-1.30 [facility] Comment on above: Performed By: #### C DRE #### [facility] [address] [address] [address] Papi Ramirez EGFR-AF CITIZEN [place] >60 Normal >=60 [facility] Comment on above: Performed By: #### C DRE #### [facility] [address] [address] [address] Papi Ramirez EGFR-NON AF CITIZEN OF [place] 59 mL/min/1.73m2 Critically low >=60 [facility] Comment on above: Performed By: #### C DRE #### [facility] [address] [place] [address] Dr. Papi Ramirez MRI ORBIT WO W CONon 023 MRI ORBIT WO W CON EXAM: MRI ORBIT WO W CON CLINICAL INDICATION: Primary malignant neoplasm of orbit COMPARISON: MRI orbits 05/07/2022 and 11/13/2021 TECHNIQUE/PROTOCOL: Standard orbits pre and post contrast protocol MRI performed, including additional DWI and ADC of the brain. CONTRAST: 20 mL of Dotarem. FINDINGS: ORBITS: Since 05/07/2022, the ill-defined and subtly enhancing curvilinear soft tissue in the superior left orbit has substantially decreased in size and in degree of enhancement. This courses in the superomedial orbit and continues to likely abut the superior rectus and superior oblique muscles. No new intraconal or extraconal soft tissue abnormality of either orbit. The globes, optic nerves, and lacrimal glands are normal in morphology. [place] lenses are well-aligned. Intraconal and the remainder of the extraconal contents are normal. Normal intraorbital vasculature. BRAIN: No restricted diffusion, extra-axial fluid collection, hydrocephalus, midline shift, or other mass effect. Visualized intracranial flow voids are maintained. Normal marrow signal. No soft tissue abnormalities. Trace scattered paranasal sinus mucosal thickening. IMPRESSION: 1. Since 05/07/2022, the ill-defined and subtly enhancing curvilinear soft tissue in the superior left orbit has substantially decreased in size and in degree of enhancement. 2. No new intraorbital abnormality. Electronically authenticated by: HERIBERTO JOLLY Date: 2022-11-15 14:37 Normal [facility] CNPNon 11-13-2022 CNPN Telephone (RADTSA) -- PADMINI LLOYD ([id number]) 1950 M Date Time Provider Department 11/13/22 Marko GARCIA During your visit today, we recorded the following information about you: Yael Matson RN 11/13/2022 11:55 AM Signed [facility] requesting Creat order for MRI. Please review and sign. We will fax to [phone]. SONIA Christy RN 11/14/2022 9:31 AM Signed Orders were faxed on 11/13. 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 - losartan (COZAAR) 100 mg tablet Take 100 mg by mouth once daily. - cyanocobalamin (VITAMIN B-12) 1,000 mcg tab Take 1,000 mcg by mouth two times a week. - warfarin sodium (WARFARIN ORAL) Take by mouth daily as directed. As Directed - ergocalciferol, vitamin D2, (VITAMIN D2 ORAL) Take by mouth. - Multivitamin capsule Take 1 capsule by mouth once daily. 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.3] 09/10/2007 Prostate cancer (HCC) [C61] 10/23/2016 History of prostate cancer [Z85.46] 01/08/2018 Encounter Status:Closed by YAEL MATSON on 11/14/22 Normal [facility] URINALYSISOrdered By: Tessie vigil on 08-28-2022 Bacteria LM Ql (Urine sed) Trace /HPF Normal Trace/HPF [facility] UA Auto SS Bilirubin Ql (U) Negative (08/28/22 2:12 PM) Normal Negative [facility] UA Auto SS Clarity (U) Clear (08/28/22 2:12 PM) Normal Clear [facility] UA Auto SS Color (U) Yellow (08/28/22 2:12 PM) Normal Yellow [facility] UA Auto SS Crystals LM Ql (Urine sed) Present (08/28/22 2:12 PM) Normal [facility] UA Auto SS Epithelial cells.squamous LM.HPF (Urine sed) [#/Area] 0-2 /HPF Normal 0-2/HPF [facility] UA Auto SS Glucose Test strip (U) [Mass/Vol] Negative (08/28/22 2:12 PM) Normal Negative [facility] UA Auto SS Hemoglobin Ql (U) Trace *ABN* (08/28/22 2:12 PM) Invalid Interpretation Code Negative [facility] UA Auto SS Ketones (U) [Mass/Vol] Negative (08/28/22 2:12 PM) Normal Negative [facility] UA Auto SS Angel [place].plasma/[place] Fire .RBC (Bld) [Mass ratio] 4-20 /HPF Normal 0-3/HPF [facility] UA Auto SS Mucus Ql (Urine sed) Trace (08/28/22 2:12 PM) Normal [facility] UA Auto SS Nitrite Ql (U) Negative (08/28/22 2:12 PM) Normal Negative [facility] UA Auto SS pH (U) 6.0 *NA* (08/28/22 2:12 PM) Invalid Interpretation Code 5.0 - 9.0 [facility] UA Auto SS Protein (U) [Mass/Vol] Negative (08/28/22 2:12 PM) Normal Negative [facility] UA Auto SS Specific gravity (U) [Rel density] 1.020 *NA* (08/28/22 2:12 PM) Invalid Interpretation Code 1.005 - 1.030 [facility] UA Auto SS UA Spec Desc Random Urine (08/28/22 2:12 PM) Normal [facility] UA Auto SS Urobilinogen Qn (U) [id number] {Alcides'U}/dL Normal 0.0 - 1.0 EU/dL [facility] UA Auto SS WBC Auto Ql (U) 1+ *ABN* (08/28/22 2:12 PM) Invalid Interpretation Code Negative [facility] UA Auto SS WBC LM.HPF (Urine sed) [#/Area] 0-5 /HPF Normal 0-5/HPF [facility] UA Auto SS CREATININEon 05-07-2022 Creatinine [Mass/Vol] 1.10 mg/dL Normal 0.70-1.30 [facility] Comment on above: Performed By: #### C VDTB #### [facility] [address] [place] [address] Dr. Papi Ramirez EGFR-AF CITIZEN OF [place] >60 Normal >=60 [facility] Comment on above: Performed By: #### C VDTB #### [facility] [address] [place] [address] Dr. Papi Ramirez EGFR-NON AF CITIZEN OF [place] >60 Normal >=60 [facility] Comment on above: Performed By: #### C VDTB #### [facility] [address] [place] [address] Dr. Papi Ramirez MRI ORBIT WO W CONon 022 MRI ORBIT WO W CON EXAMINATION: MRI ORB IT WO W CON HISTORY: Primary malignant neoplasm of orbit COMPARISON: , 11/13/2021, 10/20/2020 TECHNIQUE: A variety of imaging planes and parameters were utilized for visualization of suspected pathology. Images were performed without and with intravenous Dotarem contrast. FINDINGS: GLOBES: Negative. No mass or abnormal enhancement. EXTRAOCULAR MUSCLES: Negative. Bilateral symmetric rectus muscles. OPTIC NERVES/CHIASM: Negative. No mass or abnormal enhancement. INTRACONAL SPACES: Negative. Normal retrobulbar fat. EXTRACONAL SPACES: Minimal curvilinear asymmetric enhancement along the superior margin of the left orbit difficult to separate from the adjacent rectus muscles and stable from the prior exam. Normal lacrimal glands. SKULL: No mass or other significant visible lesion. SINUSES: Minimal mucoperiosteal thickening visualized bilateral frontal ethmoid and maxillary sinuses. No air-fluid level OTHER: Negative. IMPRESSION: Minimal curvilinear enhancing soft tissue superior left orbit, stable from the November 24 exam. Markedly improved from the October 23 exam Electronically authenticated by: CHRISTIAN RAMÍREZ Date: 2022-05-07 12:08 Normal [facility] XR FOREIGN BODY EYEon 2021 XR FOREIGN BODY EYE EXAMINATION: XR FORE IGN BODY EYE HISTORY: Foreign body in eye COMPARISON: No relevant comparison available. FINDINGS: ORBITS: Negative for a metallic foreign body. OTHER: Negative. IMPRESSION: No metallic foreign body in the orbits Electronically authenticated by: CHRISTIAN RAMÍREZ Date: 2022-05-07 08:47 Normal [facility] CALCULI, URINARYon 2 2,8 Dihydroxyadenine Normal [facility] Comment on above: Performed By: #### C ALCULI #### [facility] [address] [place] [address] Dr. Papi Ramirez Ammonium Acid Urate Normal [facility] Comment on above: Performed By: #### C ALCULI #### [facility] [address] [place] [address] Dr. Papi Ramirez Bilirubin Ql (U) Normal [facility] Comment on above: Performed By: #### C ALCULI #### [facility] [address] [place] [address] Dr. Papi Ramirez Ca Oxalate Dihydrate 70 % Normal [facility] Comment on above: Performed By: #### C ALCULI #### [facility] [address] [place] [address] Dr. Papi Ramirez CaHPO4 (Brushite) Normal [facility] Comment on above: Performed By: #### C ALCULI #### [facility] [address] [place] [address] Dr. Papi Ramirez Calcium Bilirubinate Normal [facility] Comment on above: Performed By: #### C ALCULI #### [facility] [address] [address] [address] Papi Ramirez Calcium Carbonate [facility] Comment on above: Performed By: #### C ALCULI #### [facility] [address] [address] [address] Papi Ramirez Calcium Oxalate Monohydrate 20 % [facility] Comment on above: Performed By: #### C ALCULI #### [facility] [address] [address] [address] Papi Ramirez Calcium Palmitate [facility] Comment on above: Performed By: #### C ALCULI #### [facility] [address] [address] [address] Papi Ramirez Calcium Phosphate [facility] Comment on above: Performed By: #### C ALCULI #### [facility] [address] [place] [address] Dr. Papi Ramirez Calcium Stearate [facility] Comment on above: Performed By: #### C ALCULI #### [facility] [address] [place] [address] Dr. Papi Ramirez Carbonate Apatite [facility] Comment on above: Performed By: #### C ALCULI #### [facility] [address] [address] [address] Papi Ramirez Cellular Material [facility] Comment on above: Performed By: #### C ALCULI #### [facility] [address] [address] [address] Papi Ramirez Cholesterol [facility] Comment on above: Performed By: #### C ALCULI #### [facility] [address] [place] [address] Dr. Papi Ramirez Color (U) Mcbride Normal [facility] Comment on above: Performed By: #### C ALCULI #### [facility] [address] [address] [address] Papi Ramirez Comment [facility] Comment on above: Performed By: #### C ALCULI #### [facility] [address] [address] [address] Papi Ramirez Comment Comment Normal [facility] Comment on above: Result Comment: Calc ulus received in liquid. Wet calculi must be dried before analysis, which delays reporting of results. Leaving calculi in liquid (such as water, saline, blood, urine) may lead to changes in composition. Performed By: #### C ALCULI #### [facility] [address] [address] [address] Papi Ramirez Comment: Comment Normal [facility] Comment on above: Result Comment: Phys chrisan questions regarding Calculi Analysis contact [facility] at: [phone]. Performed By: #### C ALCULI #### [facility] [address] [address] [address] Papi Ramirez Composition Comment Normal [facility] Comment on above: Result Comment: Perc entage (Represents the % composition) Performed By: #### C ALCULI #### [facility] [address] [place] [address] Dr. Papi Ramirez Cystine Normal [facility] Comment on above: Performed By: #### C ALCULI #### [facility] [address] [place] [address] Dr. Papi Ramirez Disclaimer: Comment Normal [facility] Comment on above: Result Comment: This test was developed and its performance characteristics determined by [facility]. It has not been cleared or approved by the Food and Drug Administration. Performed By: #### C ALCULI #### [facility] [address] [place] [address] Dr. Papi Ramirez Dried Blood Normal [facility] Comment on above: Performed By: #### C ALCULI #### [facility] [address] [place] [address] Dr. Papi Ramirez Drug or Metabolite Normal [facility] Comment on above: Performed By: #### C ALCULI #### [facility] [address] [place] [address] Dr. Papi Ramirez Hydroxyapatite 10 % Normal [facility] Comment on above: Performed By: #### C ALCULI #### [facility] [address] [place] [address] Dr. Papi Ramirez Mg NH4 PO4 (Struvite) Normal [facility] Comment on above: Performed By: #### C ALCULI #### [facility] [address] [address] [address] Papi Ramirez MgHPO4 (Newberyite) Normal [facility] Comment on above: Performed By: #### C ALCULI #### [facility] [address] [address] [address] Papi Ramirez Other component(s) Normal [facility] Comment on above: Performed By: #### C ALCULI #### [facility] [address] [address] [address] Papi Ramirez PDF . Normal [facility] Comment on above: Performed By: #### C ALCULI #### [facility] [address] [address] [address] Papi Ramirez Photo Comment [facility] Comment on above: Result Comment: Phot ograph will follow under a separate cover Performed By: #### C ALCULI #### [facility] [address] [address] [address] Papi Ramirez Please note: Comment Normal [facility] Comment on above: Result Comment: Calc viviana report will follow via computer, mail or pasting machine offbearer delivery. Performed By: #### C ALCULI #### [facility] [address] [address] [address] Papi Ramirez Size 7x5 Normal [facility] Comment on above: Result Comment: Mult iple pieces received. Dimensions of the largest piece reported. Performed By: #### C ALCULI #### [facility] [address] [place] [address] Dr. Papi Ramirez Sodium Acid Urate [facility] Comment on above: Performed By: #### C ALCULI #### [facility] [address] [address] [address] Papi Ramirez Source Comment Normal [facility] Comment on above: Result Comment: Urin natalie Bladder Performed By: #### C ALCULI #### [facility] [address] [address] [address] Papi Ramirez Triamterene [facility] Comment on above: Performed By: #### C ALCULI #### [facility] [address] [place] [address] Dr. Papi Ramirez Uric Acid [facility] Comment on above: Performed By: #### C ALCULI #### [facility] [address] [place] [address] Dr. Papi Ramirez Uric Acid Dihydrate [facility] Comment on above: Performed By: #### C ALCULI #### [facility] [address] [place] [address] Dr. Papi Ramirez Weight 215.0 mg [facility] Comment on above: Performed By: #### C ALCULI #### [facility] [address] [place] [address] Dr. Papi Ramirez Xanthine [facility] Comment on above: Performed By: #### C ALCULI #### [facility] [address] [place] [address] Dr. Papi Ramirez PROTIMEon 03-14-2022 INR Coag (PPP) [Relative time] 1.02 {INR} [facility] Comment on above: Performed By: #### P T, PTT #### [facility] [address] [place] [address] Dr. Papi Ramirez INR GUIDELINES SEE BELOW [facility] Comment on above: Result Comment: ELODIA RED INR: 2.0 - 3.0 CONDITIONS NOT LISTED BELOW 2.5 - 3.5 FOR PROSTHETIC HEART VALVE REPLACEMENT 2.5 - 3.5 RECURRENT THROMBOSIS Performed By: #### P T, PTT #### [facility] [address] [place] [address] Dr. Papi Ramirez PT Coag (PPP) [Time] 11.0 s Normal 9.0-11.6 [facility] Comment on above: Performed By: #### P T, PTT #### [facility] [address] [place] [address] Dr. Papi Ramirez PTTon 03-14-2022 aPTT Coag (Bld) [Time] 28.8 s Normal 22.3-36.2 [facility] Comment on above: Performed By: #### P T, PTT #### [facility] [address] [place] [address] Dr. Papi Ramirez Covid-19 PCR ([facility])on SARS-CoV-2 (COVID-19) RNA BON+probe Ql (Unsp spec) Not detected Normal NOT DETECTED [facility] Comment on above: Result Comment: This test is not yet approved or cleared by the [place] FDA. When there are no FDA-approved or cleared tests available, and other criteria are met, FDA can make tests available under an emergency access mechanism called an Emergency Use Authorization (EUA). The EUA for this test is supported by the [place] of Health and Human Service's (HHS's) declaration that circumstances exist to justify the emergency use of in vitro diagnostics for the detection and/or diagnosis of the virus that causes COVID-19. This EUA will remain in effect (meaning this test can be used) for the duration of the COVID-19 declaration justifying emergency of IVDs, unless it is terminated or revoked by FDA (after which the test may no longer be used). When diagnostic testing is negative, the possibility of a false negative should be considered in the context of a patient's recent exposures and the presence of clinical signs and symptoms consistent with SARS-CoV-2. Performed By: #### C VDTBH #### [facility] [address] [place] [address] Dr. Papi Ramirez CBC AUTO DIFFon 03-02-2022 BASO # 0.0 103/ul Normal 0.0-0.1 [facility] Comment on above: Performed By: #### C BC #### [facility] [address] [place] [address] Dr. Papi Ramirez Basophils/100 WBC (Bld) 0.3 % Normal 0.2-2.0 [facility] Comment on above: Performed By: #### C BC #### [facility] [address] [place] [address] Dr. Papi Ramirez EO # 0.0 103/ul Normal 0.0-0.7 [facility] Comment on above: Performed By: #### C BC #### [facility] [address] [place] [address] Dr. Papi Ramirez Eosinophils/100 WBC (Bld) 0.5 % Critically low 0.9-7.0 [facility] Comment on above: Performed By: #### C BC #### [facility] [address] [place] [address] Dr. Papi Ramirez Erythrocyte distribution width (RBC) [Ratio] 13.1 % Normal 11.0-15.0 [facility] Comment on above: Performed By: #### C BC #### [facility] [address] [place] [address] Dr. Papi Ramirez Hematocrit (Bld) [Volume fraction] 49.7 % Normal 42.0-54.0 [facility] Comment on above: Performed By: #### C BC #### [facility] [address] [place] [address] Dr. Papi Ramirez Hemoglobin (Bld) [Mass/Vol] 16.8 g/dL Normal 14.0-18.0 [facility] Comment on above: Performed By: #### C BC #### [facility] [address] [place] [address] Dr. Papi Ramirez IG # 0.02 10e3/ul Normal 0.00-0.03 [facility] Comment on above: Performed By: #### C BC #### [facility] [address] [place] [address] Dr. Papi Ramirez IG % 0.3 % Normal 0.0-0.5 [facility] Comment on above: Performed By: #### C BC #### [facility] [address] [place] [address] Dr. Papi Ramirez LYMPH # 1.8 103/ul Normal 1.2-3.8 [facility] Comment on above: Performed By: #### C BC #### [facility] [address] [place] [address] Dr. Papi Ramirez Lymphocytes/100 WBC (Bld) 30.3 % Normal 20.5-60.0 [facility] Comment on above: Performed By: #### C BC #### [facility] [address] [place] [address] Dr. Papi Ramirez MANUAL DIFF REQ NO Normal [facility] Comment on above: Performed By: #### C BC #### [facility] [address] [place] [address] Dr. Papi Ramirez MCH (RBC) [Entitic mass] 29.9 pg Normal 25.9-34.0 [facility] Comment on above: Performed By: #### C BC #### [facility] [address] [place] [address] Dr. Papi Ramirez MCHC (RBC) [Mass/Vol] 33.8 g/dL Normal 29.9-35.2 [facility] Comment on above: Performed By: #### C BC #### [facility] [address] [place] [address] Dr. Papi Ramirez MCV (RBC) [Entitic vol] 88.6 fL Normal 80.0-94.0 [facility] Comment on above: Performed By: #### C BC #### [facility] [address] [place] [address] Dr. Papi Ramirez MONO # 0.7 103/ul Normal 0.3-0.8 [facility] Comment on above: Performed By: #### C BC #### [facility] [address] [place] [address] Dr. Papi Ramirez Monocytes/100 WBC (Bld) 10.8 % Normal 1.7-12.0 [facility] Comment on above: Performed By: #### C BC #### [facility] [address] [place] [address] Dr. Papi Ramirez NEUT # 3.5 103/ul Normal 1.4-6.5 [facility] Comment on above: Performed By: #### C BC #### [facility] [address] [place] [address] Dr. Papi Ramirez Neutrophils/100 WBC (Bld) 57.8 % Normal 43.0-75.0 [facility] Comment on above: Performed By: #### C BC #### [facility] [address] [address] [address] Papi Ramirez Platelet mean volume (Bld) [Entitic vol] 8.7 fL Critically low 9.5-13.5 [facility] Comment on above: Performed By: #### C BC #### [facility] [address] [place] [address] Dr. Papi Ramirez PLT 200 103/ul Normal 150-450 [facility] Comment on above: Performed By: #### C BC #### [facility] [address] [place] [address] Dr. Papi Ramirez RBC 5.61 106/ul Normal 4.70-6.10 [facility] Comment on above: Performed By: #### C BC #### [facility] [address] [place] [address] Dr. Papi Ramirez WBC 6.0 103/ul Normal 4.0-11.0 [facility] Comment on above: Performed By: #### C BC #### [facility] [address] [place] [address] Dr. Papi Ramirez PROF CHEM 8 (BAS METB)on Anion gap [Moles/Vol] 11.3 mmol/L Normal [facility] Comment on above: Performed By: #### B MP #### [facility] [address] [place] [address] Dr. Papi Ramirez Calcium [Mass/Vol] 10.6 mg/dL Critically high 8.5-10.1 [facility] Comment on above: Performed By: #### B MP #### [facility] [address] [place] [address] Dr. Papi Ramirez Chloride [Moles/Vol] 109 mmol/L Critically high 98-107 [facility] Comment on above: Performed By: #### B MP #### [facility] [address] [place] [address] Dr. Papi Ramirez CO2 [Moles/Vol] 27.2 mmol/L Normal 21.0-32.0 [facility] Comment on above: Performed By: #### B MP #### [facility] [address] [place] [address] Dr. Papi Ramirez Creatinine [Mass/Vol] 1.12 mg/dL Normal 0.70-1.30 [facility] Comment on above: Performed By: #### B MP #### [facility] [address] [address] [address] Papi Ramirez EGFR-AF [place]IZEN [place] >60 Normal >=60 [facility] Comment on above: Performed By: #### B MP #### [facility] [address] [address] [address] Papi Ramirez EGFR-NON AF CITIZEN OF [place] >60 Normal >=60 [facility] Comment on above: Performed By: #### B MP #### [facility] [address] [address] [address] Papi Ramirez Glucose [Mass/Vol] 94 mg/dL Normal 74-106 [facility] Comment on above: Performed By: #### B MP #### [facility] [address] [address] [address] Papi Ramirez Potassium [Moles/Vol] 4.5 mmol/L Normal 3.5-5.1 [facility] Comment on above: Performed By: #### B MP #### [facility] [address] [address] [address] Papi Ramirez Sodium [Moles/Vol] 143 mmol/L Normal 136-145 [facility] Comment on above: Performed By: #### B MP #### [facility] [address] [address] [address] Papi Ramirez Urea nitrogen [Mass/Vol] 23.0 mg/dL Critically high 7.0-18.0 [facility] Comment on above: Performed By: #### B MP #### [facility] [address] [address] [address] Papi Ramirez Urea nitrogen/Creatinine [Mass ratio] 20.5 mg/mg Normal [facility] Comment on above: Performed By: #### B MP #### [facility] [address] [address] [address] Papi Ramirez PROTIMEon 03-02-2022 INR Coag (PPP) [Relative time] 3.21 {INR} Normal [facility] Comment on above: Performed By: #### C VDTBH #### [facility] [address] [place] [address] Dr. Papi Ramirez INR GUIDELINES SEE BELOW Normal [facility] Comment on above: Result Comment: [place] RED INR: 2.0 - 3.0 CONDITIONS NOT LISTED BELOW 2.5 - 3.5 FOR PROSTHETIC HEART VALVE REPLACEMENT 2.5 - 3.5 RECURRENT THROMBOSIS Performed By: #### C VDTBH #### [facility] [address] [place], [place] [id number] Dr. Papi Ramirez PT Coag (PPP) [Time] 32.1 s Critically high 9.0-11.6 [facility] Comment on above: Performed By: #### C VDTBH #### [facility] [address] [place] [address] Dr. Papi Ramirez PTTon 03-02-2022 aPTT Coag (Bld) [Time] 46.5 s Critically high 22.3-36. 2 [facility] Comment on above: Performed By: #### C VDTBH #### [facility] [address] [place], [place] [id number] Dr. Papi Ramirez Q - PROTHROMBIN TIME WITH IN Juan Daniel 12-18-2021 INR Coag (PPP) [Relative time] 2.4 {INR} High [facility] Comment on above: Order Comment: [facility] performed at: [facility], [facility], [address] [place] [address], [address] [place] [address], [id number], Silo Tender: Georges Yin MD [facility] Date/Time: [id number] [facility] Results Received Date/Time: [id number] [facility] Reported Date/Time: [id number] Result Comment: Refe rence Range 0.9-1.1 Moderate-intensity Warfarin Therapy 2.0-3.0 Higher-intensity Warfarin Therapy 3.0-4.0 Performed By: #### 2 6F #### [facility] [address] [place] [address] PT Coag (PPP) [Time] 22.4 s High 9.0-11.5 [facility] [place] [employer] Comment on above: Order Comment: [facility] performed at: [facility], [employer] [facility], [address] [place] [address], [address] [place] [address], [phone], Silo Tender: Georges Yin MD [facility] Date/Time: [facility] Results Received Date/Time: [id number] [facility] Reported Date/Time: Result Comment: For additional information, please refer to http://education.[employer]/faq/VPG877 (This link is being provided for informational/ educational purposes only.) Performed By: #### 2 6F #### [facility] Default [address] [place] [address] Q - PROTHROMBIN TIME WITH IN Juan Daniel 11-30-2021 INR Coag (PPP) [Relative time] 1.3 {INR} High [facility] Comment on above: Order Comment: [facility] Testing performed at: [facility], [address] [place] [address], [address] [place] [address], [address] [place] [address], Silo Tender: Georges Yin MD [facility] Collection Date/Time: [facility] Results Received Date/Time: [facility] Reported Date/Time: Result Comment: Refe rence Range 0.9-1.1 Moderate-intensity Warfarin Therapy 2.0-3.0 Higher-intensity Warfarin Therapy 3.0-4.0 Performed By: #### 2 6F #### [facility] Default [address] [place] [address] PT Coag (PPP) [Time] 12.8 s High 9.0-11.5 [facility] Comment on above: Order Comment: [facility] Testing performed at: [facility], [address] [place] [address], [address] [place] [address], [phone], Silo Tender: Georges Yin MD [facility] Collection Date/Time: [facility] Results Received Date/Time: [facility] Reported Date/Time: Result Comment: For additional information, please refer to http://Catglobe.[employer]/faq/KUP874 (This link is being provided for informational/ educational purposes only.) Performed By: #### 2 6F #### [facility] Default [address] [place] [address] Q - PROTHROMBIN TIME WITH IN Juan Daniel 11-09-2021 INR Coag (PPP) [Relative time] 1.7 {INR} High [facility] Comment on above: Order Comment: [facility] Testing performed at: [facility], [address] [facility], [address] [place] [address], [phone], Silo Tender: Georges Yin MD [facility] Collection Date/Time: [facility] Results Received Date/Time: [facility] Reported Date/Time: Result Comment: Refe rence Range 0.9-1.1 Moderate-intensity Warfarin Therapy 2.0-3.0 Higher-intensity Warfarin Therapy 3.0-4.0 Performed By: #### 2 6F #### [facility] Default [address] [place] [address] PT Coag (PPP) [Time] 16.5 s High 9.0-11.5 [facility] [place] [facility] Comment on above: Order Comment: [facility] Testing performed at: [facility], [address] [facility], [address] [place] [address], [phone], Silo Tender: Georges Yin MD [facility] Collection Date/Time: [facility] Results Received Date/Time: [facility] Reported Date/Time: Result Comment: For additional information, please refer to http://Catglobe.[employer]/faq/RUG263 (This link is being provided for informational/ educational purposes only.) Performed By: #### 2 6F #### [facility] Default [address] [place] [address] Q - PROTHROMBIN TIME WITH IN Juan Daniel 10-26-2021 INR Coag (PPP) [Relative time] 1.5 {INR} High [facility] Comment on above: Order Comment: [facility] Testing performed at: [facility], [address] [facility], [address] [place] [address], [address] [place] [address], Silo Tender: Georges Yin MD [facility] Collection Date/Time: [facility] Results Received Date/Time: [facility] Reported Date/Time: Result Comment: Refe rence Range 0.9-1.1 Moderate-intensity Warfarin Therapy 2.0-3.0 Higher-intensity Warfarin Therapy 3.0-4.0 Performed By: #### 2 6F #### [facility] Default [address] [place] [address] PT Coag (PPP) [Time] 14.8 s High 9.0-11.5 [facility] [place] [facility] Comment on above: Order Comment: [facility] Testing performed at: [facility], [address] [facility], [address] [place] [address], [address] [place] [address], Silo Tender: Georges Yin MD [facility] Collection Date/Time: [facility] Results Received Date/Time: [facility] Reported Date/Time: Result Comment: For additional information, please refer to http://education.[employer]/faq/HFQ431 (This link is being provided for informational/ educational purposes only.) Performed By: #### 2 6F #### [facility] Default [address] [place] [address] Q - PROTHROMBIN TIME WITH IN Juan Daniel 09-22-2021 INR Coag (PPP) [Relative time] 2.1 {INR} High [facility] Comment on above: Order Comment: [facility] Testing performed at: [facility], [address] [facility], [address] [place] [address], [address] [place] [address], Silo Tender: Georges Yin MD [facility] Collection Date/Time: [facility] Results Received Date/Time: [facility] Reported Date/Time: Result Comment: Refe rence Range 0.9-1.1 Moderate-intensity Warfarin Therapy 2.0-3.0 Higher-intensity Warfarin Therapy 3.0-4.0 Performed By: #### 2 6F #### [facility] Default [address] [place] [address] PT Coag (PPP) [Time] 20.2 s High 9.0-11.5 [facility] [place] [facility] Comment on above: Order Comment: [facility] Testing performed at: [facility], [address] [place] [address], [address] [place] [address], [phone], Silo Tender: Georges Yin MD [facility] Collection Date/Time: [facility] Results Received Date/Time: [facility] Reported Date/Time: Result Comment: For additional information, please refer to http://education.[employer]/faq/HDJ051 (This link is being provided for informational/ educational purposes only.) Performed By: #### 2 6F #### [facility] Default [address] [place] [address] Q - PROTHROMBIN TIME WITH IN Juan Daniel 09-14-2021 INR Coag (PPP) [Relative time] 4.3 {INR} High [facility] Comment on above: Order Comment: [facility] Testing performed at: [facility], [address] [place] [address], [address] [place] [address], [phone], Silo Tender: Georges Yin MD [facility] Collection Date/Time: [facility] Results Received Date/Time: [facility] Reported Date/Time: Result Comment: Refe rence Range 0.9-1.1 Moderate-intensity Warfarin Therapy 2.0-3.0 Higher-intensity Warfarin Therapy 3.0-4.0 Performed By: #### 2 6F #### [facility] Default [address] [place] [address] PT Coag (PPP) [Time] 39.0 s High 9.0-11.5 [facility] Comment on above: Order Comment: [facility] Testing performed at: [facility], [address] [place] [address], [address] [place] [address], [phone], Silo Tender: Georges Yin MD [facility] Collection Date/Time: [facility] Results Received Date/Time: [facility] Reported Date/Time: Result Comment: For additional information, please refer to http://Phizzbo/faq/IHE518 (This link is being provided for informational/ educational purposes only.) Performed By: #### 2 6F #### [facility] Default [address] [place] [address] Q - PROTHROMBIN TIME WITH IN Juan Daniel 07-20-2021 INR Coag (PPP) [Relative time] 2.1 {INR} High [facility] [employer] Comment on above: Order Comment: [facility] Testing performed at: [facility], [address] [facility], [address] [place] [address], [phone], Silo Tender: Georges Yin MD [facility] Collection Date/Time: [facility] Results Received Date/Time: [facility] Reported Date/Time: Result Comment: Refe rence Range 0.9-1.1 Moderate-intensity Warfarin Therapy 2.0-3.0 Higher-intensity Warfarin Therapy 3.0-4.0 Performed By: #### 2 6F #### [facility] Default [address] [place] [address] PT Coag (PPP) [Time] 21.7 s High 9.0-11.5 [facility] [employer] Comment on above: Order Comment: [facility] Testing performed at: [facility], [address] , [address] [place] [address], [place], [phone], Silo Tender: Georges Yin MD [facility] Collection Date/Time: [facility] Results Received Date/Time: [facility] Reported Date/Time: Result Comment: For additional information, please refer to http://Phizzbo/faq/WGE640 (This link is being provided for informational/ educational purposes only.) Performed By: #### 2 6F #### [facility] Default [address] [place] [address] Iron and TIBCon 07-16-2019 Iron [Mass/Vol] 85 ug/dL Normal 41-186 [facility] Comment on above: Performed By: #### I JUAN DANIEL #### [facility] Routine Lab [address] [place], [place] [address] TIBC 351 ug/dL Normal 232-386 [facility] Comment on above: Performed By: #### I JUAN DANIEL #### [facility] Routine Lab [address] [place], [place] [address] Transferrin Saturatn 24 % Normal 15-57 [facility] Comment on above: Performed By: #### I JUAN DANIEL #### [facility] Routine Lab [address] [place], [place] [id number] Vital Signs Date Time Vital Sign Value Performing Clinician Facility 11-26-2023 13:07-0400 Heart rate 82 /min Christian Pocos [facility] 11-26-2023 13:07-0400 SaO2% (BldA) [Mass fraction] 90 % Christian Pocos [facility] 11-26-2023 13:06-0400 Respiratory rate 16 /min Christian Pocos [facility] 11-26-2023 13:05-0400 Diastolic blood pressure 87 mm[Hg] Christian Pocos [facility] 11-26-2023 13:05-0400 Mean blood pressure 109 mm[Hg] Christian Pocos [facility] 11-26-2023 13:05-0400 Systolic blood pressure 154 mm[Hg] Christian Pocos [facility] 11-26-2023 09:33-0400 Heart rate 70 /min Christian Pocos [facility] 11-26-2023 09:33-0400 SaO2% (BldA) [Mass fraction] 92 % Christian Pocos [facility] 11-26-2023 09:32-0400 Diastolic blood pressure 83 mm[Hg] Christian Pocos [facility] 11-26-2023 09:32-0400 Mean blood pressure 99 mm[Hg] Christian Pocos [facility] 11-26-2023 09:32-0400 Systolic blood pressure 131 mm[Hg] Christian Pocos [facility] 11-26-2023 09:32-0400 Respiratory rate 16 /min Christian Pocos [facility] 11-26-2023 09:31-0400 Heart rate 70 /min Christian Pocos [facility] 11-26-2023 09:31-0400 Respiratory rate 14 /min Christian Pocos [facility] 11-26-2023 09:31-0400 SaO2% (BldA) [Mass fraction] 94 % Christian Pocos [facility] 11-26-2023 09:24-0400 Body temperature 97.34 [degF] Christian Pocos [facility] 11-26-2023 09:24-0400 Diastolic blood pressure 79 mm[Hg] Christian Pocos [facility] 11-26-2023 09:24-0400 Mean blood pressure 95 mm[Hg] Christian Pocos [facility] 11-26-2023 09:24-0400 Respiratory rate 10 /min Christian Pocos [facility] 11-26-2023 09:24-0400 Systolic blood pressure 126 mm[Hg] Christian Pocos [facility] 11-26-2023 09:20-0400 Mean blood pressure 95 mm[Hg] Christian Pocos [facility] 11-26-2023 09:20-0400 Respiratory rate 16 /min Christian Pocos [facility] 11-26-2023 09:10-0400 Mean blood pressure 90 mm[Hg] Christian Pocos [facility] 11-26-2023 09:01-0400 Blood Pressure Location Christian Pocos [facility] 11-26-2023 09:01-0400 Body temperature 97.7 [degF] Christian Pocos [facility] 11-26-2023 08:50-0400 Respiratory rate 5 /min Christian Pocos [facility] 11-26-2023 06:33-0400 Blood Pressure Location Christian Pocos [facility] 11-26-2023 06:33-0400 Mean blood pressure 112 mm[Hg] Christian Pocos [facility] 11-26-2023 06:31-0400 Blood Pressure Location Christian Pocos [facility] 11-26-2023 06:00-0400 Body temperature 98.24 [degF] Christian Pocos [facility] 11-14-2023 12:46-0400 Body temperature 98.6 [degF] ESMER MENDOZA [facility] 11-14-2023 12:46-0400 Diastolic blood pressure 83 mm[Hg] ESMER MCMAHANRY [facility] 11-14-2023 12:46-0400 Heart rate 71 /min ESMER MENDOZA [facility] 11-14-2023 12:46-0400 Respiratory rate 16 /min ESMER MENDOZA [facility] 11-14-2023 12:46-0400 Systolic blood pressure 139 mm[Hg] ESMER MENDOZA [facility] 11-11-2023 10:57-0400 Diastolic blood pressure 89 mm[Hg] Christian Pocos [facility] 11-11-2023 10:57-0400 Heart rate 61 /min Christian Pocos [facility] 11-11-2023 10:57-0400 Mean blood pressure 111 mm[Hg] Christian Pocos [facility] 11-11-2023 10:57-0400 Systolic blood pressure 155 mm[Hg] Christian Pocos [facility] 11-11-2023 10:56-0400 Heart rate 59 /min Christian Pocos [facility] 11-11-2023 10:56-0400 SaO2% (BldA) [Mass fraction] 95 % Christian Pocos [facility] 11-11-2023 10:56-0400 Diastolic blood pressure 87 mm[Hg] Christian Pocos [facility] 11-11-2023 10:56-0400 Mean blood pressure 108 mm[Hg] Christian Pocos [facility] 11-11-2023 10:56-0400 Systolic blood pressure 151 mm[Hg] Christian Pocos [facility] 11-11-2023 10:56-0400 Body temperature 98.24 [degF] Christian Pocos [facility] 11-11-2023 10:55-0400 Respiratory rate 16 /min Christian Bustos [facility] 10-22-2023 17:20-0400 Diastolic blood pressure 88 mm[Hg] MD Jarred Arias Work Phone: [facility] 10-22-2023 17:20-0400 Heart rate 70 /min MD Jarred Arias Work Phone: [facility] 10-22-2023 17:20-0400 Respiratory rate 16 /min MD Jarred Arias Work Phone: [facility] 10-22-2023 17:20-0400 SaO2% (BldA) [Mass fraction] 93 % MD Jarred Arias Work Phone: [facility] 10-22-2023 17:20-0400 Systolic blood pressure 148 mm[Hg] MD Jarred Arias Work Phone: [facility] 10-22-2023 14:58-0400 Body temperature 98 [degF] MD Jarred Arias Work Phone: [facility] 10-22-2023 14:28-0400 Inhaled oxygen flow rate 8 L/min MD Jarred Arias Work Phone: [facility] 10-22-2023 12:26-0400 Body height 182.88 cm MD Jarred Arias Work Phone: [facility] 10-22-2023 12:26-0400 Body mass index (BMI) [Ratio] 32.8 kg/m2 MD Jarred Arias Work Phone: [facility] 10-22-2023 12:26-0400 Body weight 110 kg MD Jarred Arias Work Phone: [facility] 09-18-2023 14:16-0500 Body height 182.9 cm Juan Cook DO Work Phone: [facility] 09-18-2023 14:16-0500 Body mass index (BMI) [Ratio] 31.46 kg/m2 Juan Cook DO Work Phone: [facility] 09-18-2023 14:16-0500 Body weight 105.23 kg Juan Cook DO Work Phone: [facility] 09-18-2023 11:15-0500 Body temperature 97.59 [degF] REZA Garcia MD Work Phone: [facility] 09-18-2023 11:15-0500 Body weight 108.9 kg REZA Garcia MD Work Phone: [facility] 09-18-2023 11:15-0500 Diastolic blood pressure 82 mm[Hg] REZA Garcia MD Work Phone: [facility] 09-18-2023 11:15-0500 Heart rate 69 /min REZA Garcia MD Work Phone: [facility] 09-18-2023 11:15-0500 Respiratory rate 16 /min REZA Garcia MD Work Phone: [facility] 09-18-2023 11:15-0500 SaO2% (BldA) [Mass fraction] 96 % REZA Garcia MD Work Phone: [facility] 09-18-2023 11:15-0500 Systolic blood pressure 149 mm[Hg] REZA Garcia MD Work Phone: [facility] 09-05-2023 09:04-0500 Body temperature 96.8 [degF] REZA Garcia MD Work Phone: [facility] 09-05-2023 09:04-0500 Body weight 109 kg REZA Garcia MD Work Phone: [facility] 09-05-2023 09:04-0500 Heart rate 71 /min REZA Garcia MD Work Phone: [facility] 09-05-2023 09:04-0500 Respiratory rate 18 /min REZA Garcia MD Work Phone: [facility] 09-05-2023 09:04-0500 SaO2% (BldA) [Mass fraction] 97 % REZA Garcia MD Work Phone: [facility] 09-03-2023 11:45-0500 Body height 182.9 cm Jarred Arias MD Work Phone: [facility] 09-03-2023 11:45-0500 Body mass index (BMI) [Ratio] 31.46 kg/m2 Jarred Arias MD Work Phone: [facility] 09-03-2023 11:45-0500 Body weight 105.23 kg Jarred Arias MD Work Phone: [facility] 06-03-2023 11:07-0400 Blood Pressure Location Domenico GIPSON [facility] 06-03-2023 11:07-0400 Diastolic blood pressure 82 mm[Hg] Domenico GIPSON [facility] 06-03-2023 11:07-0400 Systolic blood pressure 134 mm[Hg] Domenico GIPSON [facility] 05-20-2023 16:03-0400 Diastolic blood pressure 102 mm[Hg] MD Jarred Arias Work Phone: [facility] 05-20-2023 16:03-0400 Heart rate 74 /min MD Jarred Arias Work Phone: [facility] 05-20-2023 16:03-0400 Respiratory rate 16 /min MD Jarred Arias Work Phone: [facility] 05-20-2023 16:03-0400 SaO2% (BldA) [Mass fraction] 93 % MD Jarred Arias Work Phone: [facility] 05-20-2023 16:03-0400 Systolic blood pressure 161 mm[Hg] MD Jarred Arias Work Phone: [facility] 05-20-2023 15:18-0400 Inhaled oxygen flow rate 4 L/min MD Jarred Arias Work Phone: [facility] 05-20-2023 14:30-0400 Body height 182.88 cm MD Jarred Arias Work Phone: [facility] 05-20-2023 14:30-0400 Body mass index (BMI) [Ratio] 32.3 kg/m2 MD Jarred Arias Work Phone: [facility] 05-20-2023 14:30-0400 Body weight 108 kg MD Jarred Arias Work Phone: [facility] 05-20-2023 13:03-0400 Body temperature 98.5 [degF] MD Jarred Arias Work Phone: [facility] 04-29-2023 07:32-0400 Blood Pressure Location Domenico GIPSON [facility] 04-29-2023 07:32-0400 Diastolic blood pressure 81 mm[Hg] Domenico COOK [facility] 04-29-2023 07:32-0400 Heart rate 77 /min Domenico GIPSON [facility] 04-29-2023 07:32-0400 Systolic blood pressure 131 mm[Hg] Domenico COOK [facility] 04-24-2023 13:51-0400 Blood Pressure Location ESMER MENDOZA [facility] 04-24-2023 13:51-0400 Body temperature 97.88 [degF] ESMER MENDOZA [facility] 04-24-2023 13:51-0400 Diastolic blood pressure 84 mm[Hg] ESMER MENDOZA [facility] 04-24-2023 13:51-0400 Systolic blood pressure 138 mm[Hg] ESMER MARQUIS [facility] 03-12-2023 10:21-0400 Blood Pressure Location ESMER MENDOZA [facility] 03-12-2023 10:21-0400 Diastolic blood pressure 94 mm[Hg] ESMER MARQUIS [facility] 03-12-2023 10:21-0400 Heart rate 75 /min ESMER MENDOZA [facility] 03-12-2023 10:21-0400 Systolic blood pressure 155 mm[Hg] ESMER MENDOZA [facility] 11-21-2022 11:27-0400 Body temperature 97.59 [degF] REZA Garcia MD Work Phone: [facility] 11-21-2022 11:27-0400 Body weight 109.32 kg REZA Garcia MD Work Phone: [facility] 11-21-2022 11:27-0400 Diastolic blood pressure 89 mm[Hg] REZA Garcia MD Work Phone: [facility] 11-21-2022 11:27-0400 Heart rate 87 /min REZA Garcia MD Work Phone: [facility] 11-21-2022 11:27-0400 Respiratory rate 16 /min REZA Garcia MD Work Phone: [facility] 11-21-2022 11:27-0400 SaO2% (BldA) [Mass fraction] 97 % REZA Garcia MD Work Phone: [facility] 11-21-2022 11:27-0400 Systolic blood pressure 163 mm[Hg] REZA Garcia MD Work Phone: [facility] 05-16-2022 09:48-0400 Body temperature 97.2 [degF] REZA Garcia MD Work Phone: [facility] 05-16-2022 09:48-0400 Body weight 106.59 kg REZA Garcia MD Work Phone: [facility] 05-16-2022 09:48-0400 Diastolic blood pressure 76 mm[Hg] REZA Garcia MD Work Phone: [facility] 05-16-2022 09:48-0400 Respiratory rate 16 /min REZA Garcia MD Work Phone: [facility] 05-16-2022 09:48-0400 SaO2% (BldA) [Mass fraction] 94 % REZA Garcia MD Work Phone: [facility] 05-16-2022 09:48-0400 Systolic blood pressure 155 mm[Hg] REZA Garcia MD Work Phone: [facility] 01-16-2022 11:20-0400 Blood Pressure Location Althea Rodriguez Jr. [facility] 01-16-2022 11:20-0400 Diastolic blood pressure 88 mm[Hg] Althea Rodriguez Jr. [facility] 01-16-2022 11:20-0400 Heart rate 16 /min Althea Rodriguez Jr. [facility] 01-16-2022 11:20-0400 Respiratory rate 16 /min Althea Rodriguez Jr. [facility] 01-16-2022 11:20-0400 Systolic blood pressure 149 mm[Hg] Althea Rodriguez Jr. [facility] 11-16-2021 14:19-0400 Body temperature 97.59 [degF] REZA Garcia MD Work Phone: [facility] 11-16-2021 14:19-0400 Body weight 109.95 kg REZA Garcia MD Work Phone: [facility] 11-16-2021 14:19-0400 Diastolic blood pressure 75 mm[Hg] REZA Garcia MD Work Phone: [facility] 11-16-2021 14:19-0400 Heart rate 90 /min REZA Garcia MD Work Phone: [facility] 11-16-2021 14:19-0400 Respiratory rate 16 /min REZA Garcia MD Work Phone: [facility] 11-16-2021 14:19-0400 SaO2% (BldA) [Mass fraction] 96 % REZA Garcia MD Work Phone: [facility] 11-16-2021 14:19-0400 Systolic blood pressure 166 mm[Hg] REZA Garcia MD Work Phone: [facility] Encounters Encounter Date Encounter Type Care Provider Facility Start: 11-26-2023 End: 11-26-2023 ambulatory Christian Bustos Facility:[facility] Start: 11-26-2023 End: 11-26-2023 Admission to same day surgery center Christian Bustos [facility] Start: 11-14-2023 End: 11-15-2023 ambulatory ESMER MENDOZA Facility:[facility] Start: 11-14-2023 End: 11-15-2023 ambulatory ESMER MENDOZA Facility:[facility] Start: 11-14-2023 End: 11-14-2023 Lab Drop off ESMER MENDOZA [facility] Start: 11-14-2023 End: 11-14-2023 Patient encounter procedure ESMER MENDZOA [facility] Start: 11-12-2023 Telephone encounter G Jose Garcia MD Work Phone: [facility] Comment on above: Appointment Confirma mack Start: 11-12-2023 End: 11-12-2023 ambulatory MARIVEL Esdras JOHNSON Not Available Start: 11-11-2023 End: 11-12-2023 ambulatory Elbert Pocos Facility:[facility] Start: 11-11-2023 End: 11-11-2023 Patient encounter procedure Elbert Pocos [facility] Start: 11-06-2023 End: 11-07-2023 ambulatory ELBERT POCOS Not Available Start: 11-01-2023 End: 11-02-2023 ambulatory ELBERT POCOS Not Available Start: 11-01-2023 End: 11-12-2023 Pre-admission assessment Elbert Pocos [facility] Start: 10-30-2023 End: 10-30-2023 ambulatory JUAN COOK Not Available Start: 10-29-2023 End: 10-29-2023 ambulatory Juan Cook Facility:[facility] Start: 10-29-2023 End: 10-29-2023 ambulatory MD Jarred Arias Work Phone: [facility] Work Phone: Start: 10-29-2023 End: 10-29-2023 Patient encounter procedure MD Jarred Arias Work Phone: [facility] Work Phone: Start: 10-23-2023 End: 10-23-2023 ambulatory JUAN COOK Not Available Start: 10-22-2023 End: 10-22-2023 ambulatory Juan Cook Facility:[facility] Start: 10-22-2023 End: 10-22-2023 Admission to same day surgery center MD Jarred Arias Work Phone: [facility] [place] Start: 10-22-2023 End: 10-22-2023 ambulatory MD Jarred Arias Work Phone: [facility] Work Phone: Start: 10-16-2023 End: 10-16-2023 ambulatory JARRED ARIAS Not Available Start: 10-11-2023 End: 10-11-2023 ambulatory [facility] [facility] Start: 10-11-2023 End: 10-11-2023 Patient encounter procedure MD Jarred Arias Work Phone: [facility] Work Phone: Start: 10-07-2023 End: 10-07-2023 ambulatory JUAN COOK Not Available Start: 10-03-2023 End: 10-03-2023 ambulatory JARRED ARIAS Not Available Start: 09-26-2023 End: 09-27-2023 ambulatory CORINNA GARCIA Not Available Start: 09-23-2023 End: 09-23-2023 ambulatory Juan Coko Facility:[facility] Start: 09-23-2023 End: 09-23-2023 ambulatory MD Jarred Arias Work Phone: [facility] Work Phone: Start: 09-23-2023 End: 09-23-2023 Patient encounter procedure MD Jarred Arias Work Phone: [facility] [place] Work Phone: Start: 09-18-2023 End: 09-18-2023 ambulatory JUAN Osorio JOEY Not Available Start: 09-18-2023 End: 09-18-2023 Office outpatient new 45 minutes Juan Osorio Joey DO Work Phone: [facility] Comment on above: Primary hyperparathy roidism (CMS/HCC) (Primary Dx); Parathyroid abnormality (CMS/HCC); Hypercalcemia Start: 09-18-2023 End: 09-18-2023 ambulatory JARRED ARIAS Facility:[facility] Start: 09-18-2023 End: 09-18-2023 Patient encounter procedure Marko Garcia MD Work Phone: Radiation Oncology Comment on above: Pain of left hip (Pr imary Dx) Start: 09-16-2023 End: 09-16-2023 ambulatory Marko GARCIA Facility:[facility] Start: 09-13-2023 End: 09-14-2023 ambulatory JARRED ARIAS Not Available Start: 09-05-2023 End: 09-05-2023 ambulatory Marko GARCIA Facility:[facility] Start: 09-05-2023 End: 09-05-2023 Patient encounter procedure Marko Garcia MD Work Phone: Radiation Oncology Comment on above: History of prostate cancer (Primary Dx); Malignant neoplasm of left orbit (HCC); 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); Hypercalcemia Start: 09-03-2023 End: 09-03-2023 Office outpatient visit 25 minutes Jarred Arias MD Work Phone: [facility] Comment on above: Hypercalcemia (Prima ry Dx); 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); 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); Thoracic aortic ectasia (I77.810); Lumbar back pain with radiculopathy affecting left lower extremity; Lumbar myelopathy (CMS/HCC); Atrophy of quadriceps femoris muscle; Other idiopathic scoliosis, thoracolumbar region Start: 09-03-2023 End: 09-03-2023 ambulatory JARRED ARIAS Not Available Start: 08-28-2023 End: 08-28-2023 ambulatory JARRED ARIAS Facility:[facility] Start: 07-02-2023 End: 07-03-2023 ambulatory JARRED ARIAS Not Available Start: 07-01-2023 End: 07-01-2023 ambulatory JARRED ARIAS Not Available Start: 06-03-2023 End: 06-04-2023 ambulatory Domenico GIPSON Facility:[facility] Start: 06-03-2023 End: 06-03-2023 Patient encounter procedure Domenico GIPSON [facility] Start: 05-24-2023 End: 05-25-2023 ambulatory JARRED ARIAS Facility:[facility] Start: 05-24-2023 End: 05-24-2023 Patient encounter procedure JARRED ARIAS [facility] Start: 05-20-2023 End: 05-20-2023 ambulatory Domenico Gipson Facility:[facility] Start: 05-20-2023 End: 05-20-2023 Admission to same day surgery center MD Jarred Arias Work Phone: [facility] [place] Start: 05-20-2023 End: 05-21-2023 ambulatory MD Jarred Arias Work Phone: [facility] Work Phone: Start: 05-07-2023 End: 05-07-2023 ambulatory Domenico Gipson Facility:[facility] Start: 05-07-2023 End: 05-07-2023 ambulatory MD Jarred Arias Work Phone: [facility] Work Phone: Start: 05-07-2023 End: 05-07-2023 Patient encounter procedure MD Jarred Arias Work Phone: [facility]-Pre-Surgical [facility] Work Phone: Start: 04-29-2023 End: 04-30-2023 ambulatory Domenico GIPSON Facility:[facility] Start: 04-29-2023 End: 04-29-2023 Patient encounter procedure Domenico GIPSON [facility] Start: 04-24-2023 End: 04-25-2023 ambulatory ESMER E MARQUIS Facility:[facility] Start: 04-24-2023 End: 04-25-2023 ambulatory ESMER E MARQUIS Facility:[facility] Start: 04-24-2023 End: 04-24-2023 Lab Drop off ESMER E MARQUIS [facility] Start: 04-24-2023 End: 04-24-2023 Patient encounter procedure ESMER E MARQUIS [facility] Start: 03-12-2023 End: 03-13-2023 ambulatory E[facility] E [facility]QUIS [facility] Start: 03-12-2023 End: 03-12-2023 Patient encounter procedure ESMER E MARQUIS [facility] Start: 02-26-2023 End: 02-27-2023 ambulatory ESMER E MARQUIS Facility:[facility] Start: 02-12-2023 End: 02-13-2023 ambulatory ESMER E MARQUIS Facility:[facility] Start: 02-12-2023 End: 02-12-2023 Lab Drop off ESMER E MARQUIS [facility] Start: 02-12-2023 End: 02-12-2023 Patient encounter procedure JARRED ARIAS [facility] Start: 11-21-2022 End: 11-21-2022 ambulatory Marko GARCIA Facility:[facility] Start: 11-21-2022 End: 11-21-2022 Patient encounter procedure Marko Garcia MD Work Phone: Radiation Oncology Comment on above: Malignant neoplasm o f left orbit (HCC) (Primary Dx); History of prostate cancer; Lung nodule Start: 11-15-2022 End: 11-16-[address] CORINNA GARCIA Facility:[facility] Start: 11-13-2022 Telephone encounter Marko Garcia MD Work Phone: Radiation Oncology Comment on above: Lab Orders Start: 08-28-2022 End: 08-28-2022 Lab Drop off ESMER MENDOZA [facility] Start: 08-28-2022 End: 08-28-2022 Patient encounter procedure ESMER MENDOZA [facility] Start: 08-21-2022 Orders Only Lissa Gupta RN Hematol ogy/Oncology Comment on above: History of prostate cancer (Primary Dx) Start: 05-16-2022 End: 05-16-2022 Patient encounter procedure Marko Garcia MD Work Phone: Radiation Oncology Comment on above: Malignant neoplasm o f left orbit (HCC) (Primary Dx); Malignant neoplasm of prostate (HCC) Start: 05-07-2022 End: 05-08-[address] CORINNA GARCIA Facility:[facility] Start: 05-02-2022 Telephone encounter Marko Garcia MD Work Phone: Radiation Oncology Comment on above: Orders Start: 03-28-2022 End: 03-28-2022 Lab Drop off ESMER MENDOZA [facility] Start: 03-28-2022 End: 03-28-2022 Patient encounter procedure ESMER MENDOZA [facility] Start: 03-14-2022 End: 03-14-[address] ALTHEA Blanco Facility:[facility] Start: 03-12-2022 Encounter for prepro cedural laboratory examination DR ALTHEA Blanco [facility] Start: 03-10-2022 End: 03-11-[address] ALTHEA Blanco Facility:[facility] Start: 03-10-2022 End: 03-11-2022 Encounter for preprocedural laboratory examination DR ALTHEA Blanco Facility:[facility] Start: 03-08-2022 Encounter for prepro cedural cardiovascular examination DR ALTHEA Blanco [facility] Start: 03-02-2022 End: 03-03-[address] ALTHEA Blanco Facility:[facility] Start: 02-08-2022 End: 02-08-2022 Patient encounter procedure Althea Rodriguez Jr. [facility] Start: 01-16-2022 End: 01-16-2022 Patient encounter procedure Althea Rodriguez Jr. [facility] Start: 01-04-2022 End: 01-04-2022 Lab Drop off ESMER MENDOZA [facility] Start: 01-04-2022 End: 01-04-2022 Patient encounter procedure ESMRE MENDOZA [facility] [place] Start: 12-29-2021 End: 12-29-2021 Lab Drop off Althea Rodriguez Jr. [facility] Start: 12-29-2021 End: 12-29-2021 Patient encounter procedure Altheaalberta Rodriguez Jr. [facility] Start: 11-16-2021 End: 11-16-2021 Patient encounter procedure G Jose Garcia MD Work Phone: Radiation Oncology Comment on above: Malignant neoplasm o f left orbit (HCC) (Primary Dx) Start: 11-08-2021 Telephone encounter G Jose Garcia MD Work Phone: Radiation Oncology Comment on above: Orders Procedures Date Procedure Procedure Detail Performing Clinician Start: 11-26-2023 Total replacement of hip Christian Bustos Start: 10-22-2023 Lobectomy of thyroid gland MD Jarred Arias Work Phone: Start: 09-23-2023 CT of soft tissues o f neck with contrast MD Jarred Arias Work Phone: Start: 09-23-2023 Single photon emissi on computed tomography of parathyroid MD Jarred Arias Work Phone: Start: 09-04-2023 Calcium ionized Jarred Arias MD Work Phone: Start: 05-20-2023 Abdomen endoscopy MD Milan Arias Work Phone: Start: 05-20-2023 Transurethral prostatectomy Domenico GIPSON Start: 11-15-[address] CORINNA GARCIA Comment on above: Performed By: #### C [facility] #### [facility] [address] [place] [address] Dr. Papi Ramirez Start: 03-14-2022 Cystolitholapaxy JESUS MANUEL MENDOZA Start: 02-08-2022 Cystourethroscopy wi th dilation of urethral stricture ESMER MENDOZA Start: 05-17-2021 Adult depression scr eening assessment NA Radha CALIX Work Phone: Start: 10-12-2020 Colonoscopy Jarred griffin MD Work Phone: Start: 08-24-2020 Cystoscopy Althea mcrae Jr. Start: 05-15-2017 Endoscopic transuret hral fulguration of prostate Althea Rodriguez Jr. Start: 09-07-2016 Transrectal biopsy o f prostate using ultrasound guidance Althea Rodriguez Jr. Start: 08-05-2016 Brachytherapy Althea caicedo Jr. Colonoscopy Althea Blanco Plan of Treatment Date Care Activity Detail Author Start: 10-12-2030 Screening for malign ant neoplasm of colon [facility] Start: 08-28-2026 Diabetes Screening Diabetes Screenin g [facility] Start: 04-05-2024 Influenza vaccination Influenz a Vaccine (Season Ended) [facility] Start: 03-02-2024 DIABETES SCREEN DIABETES SCREEN [facility] Start: 10-22-2023 [facility] Start: 10-22-2023 [facility] Start: 10-03-2023 End: 10-03-2023 Patient encounter procedure 10/03/2023 11:00 AM EST Procedure Visit [facility] [address] [place] [id number] [facility] Start: 09-26-2023 End: 09-26-2023 Professional / ancillary services management 09/26/2023 11:00 AM EST Ancillary Procedure [facility] [address] [place] [address] [facility] Start: 08-05-2023 Advance Directive Discussion Advance Directive Discussion [facility] Start: 08-05-2023 Behavioral Health Screening Behavioral Health Screening [facility] Start: 08-05-2023 Depression Assessment Depression Ass essment [facility] Start: 05-20-2023 End: 05-20-2023 [facility] Start: 04-05-2023 Covid-19 Vaccine ( season) Covid-19 Vaccine () [facility] Start: 04-05-2023 Influenza vaccination [facility] Start: 11-14-2022 End: 01-14-2023 Prostate specific Ag [Mass/volume] in Serum or Plasma PSA/PROSTSPECAG DIAG Lab Routine Malignant neoplasm of prostate (HCC) Expected: 11/14/2022, Expires: 01/14/2023 [facility] Work Phone: Comment on above: Expected: 11/14/2022 , Expires: 01/14/2023 Start: 11-13-2022 End: 01-13-2023 CREATININE BLD CREATININE BLD Lab Routine Malignant neoplasm of left orbit (HCC) Expected: 11/13/2022, Expires: 01/13/2023 [facility] Work Phone: Comment on above: Expected: 11/13/2022 , Expires: 01/13/2023 Start: 08-21-2022 End: 10-21-2022 Prostate specific Ag [Mass/volume] in Serum or Plasma [facility] Work Phone: Comment on above: Expected: 08/21/2022 , Expires: 10/21/2022 Start: 08-05-2022 ADVANCE DIRECTIVE DISCUSSION ADVANCE DIRECTIVE DISCUSSION [facility] Start: 08-05-2022 DEPRESSION ASSESSMENT DEPRESSION ASS ESSMENT [facility] Start: 05-17-2022 Adult depression screening assessment DEPRESSION SCREENING [facility] Start: 05-03-2022 End: 07-03-2022 CREATININE BLD CREATININE BLD Lab Routine Malignant neoplasm of left orbit (HCC) Expected: 05/03/2022, Expires: 07/03/2022 [facility] Work Phone: Comment on above: Expected: 05/03/2022 , Expires: 07/03/2022 Start: 04-05-2022 Influenza vaccination [facility] Start: 11-09-2021 End: 01-09-2022 Prostate specific Ag [Mass/volume] in Serum or Plasma PSA/PROSTSPECAG DIAG Lab Routine History of prostate cancer Expected: 11/09/2021 (Approximate), Expires: 01/09/2022 [facility] Work Phone: Comment on above: Expected: 11/09/2021 (Approximate), Expires: 01/09/2022 Start: 08-05-2021 ADVANCE DIRECTIVE DISCUSSION ADVANCE DIRECTIVE DISCUSSION [facility] Start: 08-05-2021 DEPRESSION ASSESSMENT DEPRESSION ASS ESSMENT [facility] Start: 07-15-2018 Pneumococcal Vaccine : 65+ (2 of 2 - PCV) Pneumococcal Vaccine: 65+ (2 of 2 - PCV) [facility] Start: 07-15-2018 Pneumococcal Vaccine : 65+ Years (2 - PCV) Pneumococcal Vaccine: 65+ Years (2 - PCV) [facility] Start: 2017 PNEUMOVAX AGE 65 AND OVER WITH 5YR LOOKBACK (#1) PNEUMOVAX AGE 65 AND OVER WITH 5YR LOOKBACK (#1) [facility] Start: 2012 RSV Vaccine (1 - 1-d ose 60+ series) RSV Vaccine (1 - 1-dose 60+ series) [facility] Start: 2002 SHINGRIX VACCINE (1 of 2) SHINGRIX VACCINE (1 of 2) [facility] Start: 1997 COLOGUARD (FIT-DNA) COLOGUARD (FIT-D NA) [facility] Start: 1997 Colonoscopy COLONOSCOPY [facility] Start: 1997 COLORECTAL CANCER SCREENING COLORECTAL CANCER SCREENING [facility] Start: [address] COLONOGRAPHY [facility] Start: 1997 FECAL OCCULT BLOOD FECAL OCCULT BLOO D [facility] Start: 1997 Screening for malign ant neoplasm of colon [facility] Start: 1997 [facility] Start: 1987 Lipid panel Lipid Screening [facility] Start: 1987 LIPID SCREEN LIPID SCREEN [facility] Start: 1971 SHINGRIX VACCINE (1 of 2) SHINGRIX VACCINE (1 of 2) [facility] Start: 1971 Urine microalbumin profile [facility] Start: 1970 HEPATITIS C SCREENING HEPATITIS C [facility] Start: 1970 Hepatitis C screening Hepatitis C [facility] Start: 1964 COVID-19 VACCINE (1) COVID-19 VACCIN E (1) [facility] Start: 1958 PNEUMOCOCCAL: 65+ (1 - PCV) PNEUMOCOCCAL: 65+ (1 - PCV) [facility] Start: 1952 COVID-19 VACCINE (#1) COVID-19 VACCI NE (#1) [facility] Start: 1952 ABDOMINAL AORTIC ANEURYSM SCREENING ABDOMINAL AORTIC ANEURYSM SCREENING [facility] Start: 1952 Abdominal aortic aneurysm screening Abdominal Aortic Aneurysm Screening [facility] Start: 1952 Screening for malign ant neoplasm of colon [facility] End: 10-17-2024 MR Hip - left WO and W contrast IV MRI HIP WO/W IVCON LEFT Radiology Routine Pain of left hip 1 Occurrences starting 09/18/2023 until 10/17/2024 [facility] Work Phone: Comment on above: 1 Occurrences starti ng 09/18/2023 until 10/17/2024 End: 12-16-2022 Mri orbit face & neck w/o & w/contrast matrl MRI ORBIT WO/W IVCON Radiology Routine Malignant neoplasm of left orbit (HCC) 1 Occurrences starting 11/16/2021 until 12/16/2022 [facility] Work Phone: Comment on above: 1 Occurrences starti ng 11/16/2021 until 12/16/2022 End: 06-15-2023 Mri orbit face & neck w/o & w/contrast matrl MRI ORBIT WO/W IVCON Radiology Routine Malignant neoplasm of left orbit (HCC) 1 Occurrences starting 05/16/2022 until 06/15/2023 [facility] Work Phone: Comment on above: 1 Occurrences starti ng 05/16/2022 until 06/15/2023 End: 12-21-2023 Mri orbit face & neck w/o & w/contrast matrl MRI ORBIT WO/W IVCON Radiology Routine Malignant neoplasm of left orbit (HCC) 1 Occurrences starting 11/21/2022 until 12/21/2023 [facility] Work Phone: Comment on above: 1 Occurrences starti ng 11/21/2022 until 12/21/2023 End: 10-04-2024 NM PET/CT SKULL-THIGH SUBSEQUENT NM PET/CT SKULL-THIGH SUBSEQUENT Radiology Routine 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) 1 Occurrences starting 09/05/2023 until 10/04/2024 [facility] Work Phone: Comment on above: 1 Occurrences starti ng 09/05/2023 until 10/04/2024 Patient referral [facility] Work Phone: End: 06-01-2023 Radiologic examination eye detect foreign body XR EYE FOREIGN BODY 2V Radiology Routine Malignant neoplasm of left orbit (HCC) 1 Occurrences starting 05/03/2022 until 06/01/2023 [facility] Work Phone: Comment on above: 1 Occurrences starti ng 05/03/2022 until 06/01/2023 [facility] Immunizations Immunization Date Immunization Notes Care Provider [facility] 07-15-2017 pneumococcal polysaccharide vaccine, 23 valent ESMER MENDOZA [facility] NEGATED: Highlighted row has not occurred!11-14-2023 influenza virus vaccine, unspecified formulation ESMER MENDOZA [facility] NEGATED: Highlighted row has not occurred!07-19-2020 influenza virus vaccine, unspecified formulation Althea Rodriguez Jr. [facility] NEGATED: Highlighted row has not occurred!07-16-2019 influenza virus vaccine, live, attenuated, for intranasal use Althea Rodriguez Jr. [facility] Payers Date Payer Category Payer Unknown AARP AARP [id number] 2023-Present [address] [place] [address] [id number] 2023 Self-pay [id number] 2023 Unknown [id number] 2021 Private Health Insurance [facility] AARP SUPPLEMENT [id number] 2021-Present [phone] [address] [place] [address] Indemnity [id number] 2021 Private Health Insurance [facility] AARP SUPPLEMENT [id number] 2021-Present [phone] [address] [place] [address] Indemnity [id number] 2017 Medicare [id number] 2017 Medicare [id number]. [id number] 2017 Medicare [id number]. 1.13.159.2. [id number] 1959 Medicare [id number] 1959 Unknown [id number] 1952 Unknown [id number] 2.16.840.1.438835.3.579.2. 593 1952 Unknown [id number] 2.16.840.1.656739.3.579.2. 593 1952 Unknown [id number] 2.16.840.1.498647.3.579.2. 593 1952 Unknown [id number] 2.16.840.1.861909.3.579.2. 593 1952 Unknown [id number] 2.16.840.1.029527.3.579.2. 593 1952 Unknown [id number] 2.16.840.1.777781.3.579.2. 1259 1952 Unknown [id number] 2.16.840.1.657376.3.579.2. 125 1952 Unknown [id number] 2.16.840.1.988322.3.579.2. 125 1952 Unknown [id number] 2.16.840.1.456346.3.579.2. 1258 1952 Unknown [id number] 2.16.840.1.025476.3.579.2. 125 1952 Unknown [id number] 2.16.840.1.516587.3.579.2. 125 1952 Unknown [id number] 2.16.840.1.107537.3.579.2. 1258 1952 Unknown [id number] 2.16.840.1.723294.3.579.2. 125 1952 Unknown [id number] 2.16.840.1.545256.3.579.2. 125 1952 Unknown [id number] 2.16.840.1.966727.3.579.2. 125 1952 Unknown [id number] 2.16.840.1.883547.3.579.2. 125 1952 Unknown [id number] 2.16.840.1.347446.3.579.2. 125 1952 Unknown [id number] 2.16.840.1.119535.3.579.2. 125 1952 Unknown [id number] 2.16.840.1.895958.3.579.2. 1259 1952 Unknown [id number] 2.16.840.1.251359.3.579.2. 1259 1952 Unknown [id number] 2.16.840.1.544369.3.579.2. 1259 1952 Unknown [id number] 2.16.840.1.907713.3.579.2. 1259 1952 Unknown [id number] 2.16.840.1.601996.3.579.2. 72 1952 Unknown [id number] 2.16.840.1.699194.3.579.2. 72 1952 Unknown [id number] 2.16.840.1.993508.3.579.2. 72 1952 Unknown [id number] 2.16.840.1.956069.3.579.2. 72 1952 Unknown [id number] 2.16.840.1.230638.3.579.2. 72 1952 Unknown [id number] 2.16.840.1.658465.3.579.2. 72 1952 Unknown [id number] 2.16.840.1.177930.3.579.2. 727 1952 Unknown [id number] 2.16.840.1.972742.3.579.2. 72 1952 Unknown [id number] 2.16.840.1.983352.3.579.2. 727 1952 Unknown [id number] 2.16.840.1.527060.3.579.2. 72 1952 Unknown [id number] 2.16.840.1.556355.3.579.2. 727 1952 Unknown [id number] 2.16.840.1.293220.3.579.2. 72 1952 Unknown [id number] 2.16.840.1.855787.3.579.2. 727 1952 Unknown [id number] 2.16.840.1.866702.3.579.2. 727 1952 Unknown [id number] 2.16.840.1.602960.3.579.2. 727 Medicare [id number] Unknown [id number] 2.16.840.1.474330.3.579.2. 531 Unknown [id number] 2.16.840.1.461050.3.579.2. 531 Unknown [id number] 2.16.840.1.358004.3.579.2. 531 Unknown [id number] 2.16.840.1.746602.3.579.2. 531 Unknown [id number] 2.16.840.1.027277.3.579.2. 531 Unknown [id number] 2.16.840.1.147326.3.579.2. 531 Social History Date Type Detail Facility Start: 12-29-2021 End: 11-14-2023 Tobacco smoking status ARIS Ex-smoker [facility] Comment on above: pt quit smoking in 1 985 pt quit smoking in 1 985 End: 09-10-1984 History of tobacco use Current smoker [facility] End: 09-10-1984 History of tobacco use Cigarette Smoker [facility] Start: 07-11-2021 End: 09-18-2023 Alcohol intake Not Asked [facility] Start: 1950 Sex Assigned At Not on file C [facility] Start: 10-29-2021 End: 05-16-2022 Exposure to SARS-CoV-2 (event) Not sure [facility] Start: 11-16-2021 End: 09-05-2023 Sex Assigned At Male [facility] Start: 01-08-2018 End: 09-05-2023 Cigarettes smoked current (pack per day) - Reported 1 [facility] Start: 01-08-2018 End: 09-18-2023 Tobacco use and exposure Smokeless tobacco non-user [facility] Tobacco quit 1985 Tobacc o Use:. Cigarettes [facility] [place] Comment on above: pt quit smoking in 1 985 Tobacco smoking status No Smokin g Status Entered [facility] Start: 1950 Sex Assigned At Male F [facility] Adult Depression Screening Assessment 0 [facility] Comment on above: pt quit smoking in 1 985 Start: 09-03-2023 End: 09-18-2023 Alcohol intake Current drinker of alcohol (finding) [facility] Within the last year , have you been afraid of your partner or ex-partner? No [facility] Are you now , , , , never or living with a partner? [facility] How often to you hav e a drink containing alcohol? Monthly or less [facility] How many standard drinks containing alcohol do you have on a typical day? 1 or 2 [facility] How often do you hav e 6 or more drinks on 1 occasion? Monthly [facility] Do you feel stress - tense, restless, nervous, or anxious, or unable to sleep at night because your mind is troubled all the time - these days [OSQ] Only a little [facility] (I/We) worried whethor er (my/our) food would run out before (I/we) got money to buy more. Never true [facility] Start: 01-03-2023 Alcohol Comment Occasionally [facility] Procedure Code Equipment Code Equipment Origin al Text Equipment Identifier Dates HIP TOTAL ROBOT ARTHROPLASTY Marcinos DOChristian 11/26/23 Unknown Hip L FDA Start: 11-26-2023 HIP TOTAL ROBOT ARTHROPLASTY Pocos DOChristian 11/26/23 Unknown Hip L FDA Start: 11-26-2023 HIP TOTAL ROBOT ARTHROPLASTY Pocos DOChristian 11/26/23 Unknown Hip L FDA Start: 11-26-2023 HIP TOTAL ROBOT ARTHROPLASTY Pocos DOChristian 11/26/23 Unknown Hip L FDA Start: 11-26-2023 HIP TOTAL ROBOT ARTHROPLASTY Christian Bustos DO 11/26/23 Unknown Hip L FDA Start: 11-26-2023 Goals Date Patient Goal Desired Activity /State Functional Status Date Assessment Result Facility 11-14-2023 Functional Status N/A [facility] 11-11-2023 Functional Status No [facility] 06-03-2023 Functional Status N/A [facility] 04-29-2023 Functional Status N/A [facility] 04-24-2023 Functional Status N/A [facility] 03-12-2023 Functional Status N/A [facility] 08-28-2022 Functional Status N/A [facility] 02-02-2022 Functional Status N/A [facility] 01-16-2022 Functional Status N/A [facility] Clinical Notes 11-08-2021 to 11-26-2023 Telephone Encounter - Leo Monique - 11/12/2023 9:32 AM Lyly Cook DO - 09/18/2023 2:15 PM Marko Pringle MD - 09/18/2023 11:30 AM EST Note Date & Type Note Facility 11-26-2023 Hospital Discharge instructions Patient Education 11/26/2023 09:25:14 Post Op Patient Instructions - FT (CUSTOM) 11/26/2023 09:25:11 How to Use an Incentive Spirometer How to Use an Incentive Spirometer An incentive spirometer is a tool that measures how well you are filling your lungs with each breath. Learning to take long, deep breaths using this tool can help you keep your lungs clear and active. This may help to reverse or lessen your chance of developing breathing (pulmonary) problems, especially infection. You may be asked to use a spirometer: After a surgery. If you have a lung problem or a history of smoking. After a long period of time when you have been unable to move or be active. If the spirometer includes an indicator to show the highest number that you have reached, your health care provider or respiratory therapist will help you set a goal. Keep a log of your progress as told by your health care provider. What are the risks? Breathing too quickly may cause dizziness or cause you to pass out. Take your time so you do not get dizzy or light-headed. If you are in pain, you may need to take pain medicine before doing incentive spirometry. It is harder to take a deep breath if you are having pain. How to use your incentive spirometer 1.Sit up on the edge of your bed or on a chair. 2.Hold the incentive spirometer so that it is in an upright position. 3.Before you use the spirometer, breathe out normally. 4.Place the mouthpiece in your mouth. Make sure your lips are closed tightly around it. 5.Breathe in slowly and as deeply as you can through your mouth, causing the piston or the ball to rise toward the top of the chamber. 6.Hold your breath for 3 5 seconds, or for as long as possible. If the spirometer includes a head tennis coach indicator, use this to guide you in breathing. Slow down your breathing if the indicator goes above the marked areas. 7.Remove the mouthpiece from your mouth and breathe out normally. The piston or ball will return to the bottom of the chamber. 8.Rest for a few seconds, then repeat the steps 10 or more times. Take your time and take a few normal breaths between deep breaths so that you do not get dizzy or light-headed. Do this every 1 2 hours when you are awake. 9.If the spirometer includes a goal marker to show the highest number you have reached (best effort), use this as a goal to work toward during each repetition. 10.After each set of 10 deep breaths, cough a few times. This will help to make sure that your lungs are clear. If you have an incision on your chest or abdomen from surgery, place a pillow or a rolled-up towel firmly against the incision when you cough. This can help to reduce pain while taking deep breaths and coughing. General tips When you are able to get out of bed: ?Walk around often. ?Continue to take deep breaths and cough in order to clear your lungs. Keep using the incentive spirometer until your health care provider says it is okay to stop using it. If you have been in the hospital, you may be told to keep using the spirometer at home. Contact a health care provider if: You are having difficulty using the spirometer. You have trouble using the spirometer as often as instructed. Your pain medicine is not giving enough relief for you to use the spirometer as told. You have a fever. Get help right away if: You develop shortness of breath. You develop a cough with bloody mucus from the lungs. You have fluid or blood coming from an incision site after you cough. Summary An incentive spirometer is a tool that can help you learn to take long, deep breaths to keep your lungs clear and active. You may be asked to use a spirometer after a surgery, if you have a lung problem or a history of smoking, or if you have been inactive for a long period of time. Use your incentive spirometer as instructed every 1 2 hours while you are awake. If you have an incision on your chest or abdomen, place a pillow or a rolled-up towel firmly against your incision when you cough. This will help to reduce pain. Get help right away if you have shortness of breath, you cough up bloody mucus, or blood comes from your incision when you cough. This information is not intended to replace advice given to you by your health care provider. Make sure you discuss any questions you have with your health care provider. Document Revised: 10/10/2020 Document Reviewed: 10/10/2020 [employer] Patient Education 2022 [employer] 11/19/2023 07:13:53 [facility]os - Hip Replacement Arthroplasty - Posterior Lateral Approach (Custom) [place], [place] [facility] DISCHARGE INSTRUCTIONS HIP REPLACEMENT ARTHROPLASTY Posterior Lateral Approach INCISION CARE: Continue the daily dressing care to the hip as instructed in the hospital for 7 days postoperatively. The dressing will then be changed and worn an additional 7 days. You may then discontinue the dressing changes. The dressing over the upper pelvis area may be removed postoperatively on day #3 and left open to air. Please notify the office if any increase in redness, tenderness, drainage, fever, or wound separation is noted. DISLOCATION PRECAUTIONS: Continue to use the abduction pillow between the knees at all times, both while in bed and up in chair. This abduction pillow should be removed only while walking and performing physical therapy exercises; otherwise, to be used while sitting and while in bed. This will be maintained for six weeks postoperatively. At that time, you may begin using a regular bed pillow between your knees at night. You should continue to avoid crossing the knees or crossing the legs for six months postoperatively. Sitting in a chair should always be such that the knees are kept below the level of the hips to avoid increased flexion of the hip, possibly causing dislocation. MEDICATIONS: You may resume your home medications at the time of discharge. You may take up to 3,000 mg Acetaminophen (Tylenol) per day as needed. Duricef (cefadroxil) as prescribed for 4 doses. Start with the evening dose the day of surgery. Resume warfarin (Coumadin) and enoxaparin (Lovenox) as directed by Dr. Arias. [facility] Discharge Instructions for Hip Replace.Page 2 Medications Cont... Pain medication has been prescribed as well. You may continue to use the pain medication every four hours as needed. Any narcotic pain medication can cause side effects including stomach upset, constipation, or light-headedness. You should not drive or operate machinery, or use alcohol while using the narcotic pain medication. You should not use other pain medications with this prescription pain medication unless further directed by your physician. PHYSICAL THERAPY DISLOCATION PRECAUTIONS: Continue the weightbearing as tolerated. Continue the range of motion and strengthening exercises initiated in Physical Therapy in the hospital. Again, do not cross legs, internally rotate the legs, or flex the hip above 90 degrees for six months postoperatively. Continue weight bearing, as ordered, to the operated hip for four to six weeks as directed in Physical Therapy. This will be with the use of a walker or crutches. After four or six weeks you may then progress to the use of one crutch, or a cane. A quad-cane is preferred as this is more stable. Physical therapy as begun in the hospital will continue at home, possible with the hotel administrative assistant of Home Health Physical Therapy or in the hospital as an outpatient. When you have become independent with the physical therapy program, this will then be discontinued as a supervised program and you will be instructed to continue the physical therapy exercises at home. DRIVING: Do NOT Drive FOLLOW-UP OFFICE VISIT: 4 weeks Postop Christian Bustos, DO [facility] [address], [place] [address] Revised: 12-25 Follow Up Care 11/01/2023 08:59:03 With:Christian Bustos Address: [address] , [address] [place] [address]- Business (1) When: Unknown Comments:Appointment has already been scheduledCall for any problems.Keep scheduled appointment [facility] 11-14-2023 Hospital Discharge instructions Patient Education 11/14/2023 13:18:45 Cystoscopy Cystoscopy Cystoscopy is a procedure that is used to help diagnose and sometimes treat conditions that affect the lower urinary tract. The lower urinary tract includes the bladder and the urethra. The urethra is the tube that drains urine from the bladder. Cystoscopy is done using a thin, tube-shaped instrument with a light and camera at the end (cystoscope). The cystoscope may be hard or flexible, depending on the goal of the procedure. The cystoscope is inserted through the urethra, into the bladder. Cystoscopy may be recommended if you have: Urinary tract infections that keep coming back. Blood in the urine (hematuria). An inability to control when you urinate (urinary incontinence) or an overactive bladder. Unusual cells found in a urine sample. A blockage in the urethra, such as a urinary stone. Painful urination. An abnormality in the bladder found during an intravenous pyelogram (IVP) or CT scan. Cystoscopy may also be done to remove a sample of tissue to be examined under a microscope (biopsy). Tell a health care provider about: Any allergies you have. All medicines you are taking, including vitamins, herbs, eye drops, creams, and lbvg-vmn-beiymcs medicines. Any problems you or family members have had with anesthetic medicines. Any blood disorders you have. Any surgeries you have had. Any medical conditions you have. Whether you are or may be . What are the risks? Generally, this is a safe procedure. However, problems may occur, including: Infection. Bleeding. Allergic reactions to medicines. Damage to other structures or organs. What happens before the procedure? Medicines Ask your health care provider about: Changing or stopping your regular medicines. This is especially important if you are taking diabetes medicines or blood thinners. Taking medicines such as aspirin and ibuprofen. These medicines can thin your blood. Do not take these medicines unless your health care provider tells you to take them. Taking egjm-yqc-ulouzri medicines, vitamins, herbs, and supplements. Tests You may have an exam or testing, such as: X-rays of the bladder, urethra, or kidneys. CT scan of the abdomen or pelvis. Urine tests to check for signs of infection. General instructions Follow instructions from your health care provider about eating or drinking restrictions. Ask your health care provider what steps will be taken to help prevent infection. These steps may include: ?Washing skin with a germ-killing soap. ?Taking antibiotic medicine. Plan to have a responsible adult take you home from the hospital or clinic. What happens during the procedure? You will be given one or more of the following: ?A medicine to help you relax (sedative). ?A medicine to numb the area (local anesthetic). The area around the opening of your urethra will be cleaned. The cystoscope will be passed through your urethra into your bladder. Germ-free (sterile) fluid will flow through the cystoscope to fill your bladder. The fluid will stretch your bladder so that your health care provider can clearly examine your bladder leggett. Your doctor will look at the urethra and bladder. Your doctor may take a biopsy or remove stones. The cystoscope will be removed, and your bladder will be emptied. The procedure may vary among health care providers and hospitals. What can I expect after the procedure? After the procedure, it is common to have: Some soreness or pain in your abdomen and urethra. Urinary symptoms. These include: ?Mild pain or burning when you urinate. Pain should stop within a few minutes after you urinate. This may last for up to 1 week. ?A small amount of blood in your urine for several days. ?Feeling like you need to urinate but producing only a small amount of urine. Follow these instructions at home: Medicines Take frsc-oci-ndwxode and prescription medicines only as told by your health care provider. If you were prescribed an antibiotic medicine, take it as told by your health care provider. Do not stop taking the antibiotic even if you start to feel better. General instructions Return to your normal activities as told by your health care provider. Ask your health care provider what activities are safe for you. If you were given a sedative during the procedure, it can affect you for several hours. Do not drive or operate machinery until your health care provider says that it is safe. Watch for any blood in your urine. If the amount of blood in your urine increases, call your health care provider. Follow instructions from your health care provider about eating or drinking restrictions. If a tissue sample was removed for testing (biopsy) during your procedure, it is up to you to get your test results. Ask your health care provider, or the department that is doing the test, when your results will be ready. Drink enough fluid to keep your urine pale yellow. Keep all follow-up visits. This is important. Contact a health care provider if: You have pain that gets worse or does not get better with medicine, especially pain when you urinate. You have trouble urinating. You have more blood in your urine. Get help right away if: You have blood clots in your urine. You have abdominal pain. You have a fever or chills. You are unable to urinate. Summary Cystoscopy is a procedure that is used to help diagnose and sometimes treat conditions that affect the lower urinary tract. Cystoscopy is done using a thin, tube-shaped instrument with a light and camera at the end. After the procedure, it is common to have some soreness or pain in your abdomen and urethra. Watch for any blood in your urine. If the amount of blood in your urine increases, call your health care provider. If you were prescribed an antibiotic medicine, take it as told by your health care provider. Do not stop taking the antibiotic even if you start to feel better. This information is not intended to replace advice given to you by your health care provider. Make sure you discuss any questions you have with your health care provider. Document Revised: 04/04/2022 Document Reviewed: 03/03/2021 [employer] Patient Education 2022 [employer]. 11/14/2023 13:17:02 Urinary Tract Infection, Adult, Nabj-wj-Lncw Urinary Tract Infection, Adult A urinary tract infection (UTI) is an infection of any part of the urinary tract. The urinary tract includes: The kidneys. The ureters. The bladder. The urethra. These organs make, store, and get rid of pee (urine) in the body. What are the causes? This infection is caused by germs (bacteria) in your genital area. These germs grow and cause swelling (inflammation) of your urinary tract. What increases the risk? The following factors may make you more likely to develop this condition: Using a small, thin tube (catheter) to drain pee. Not being able to control when you pee or poop (incontinence). Being female. If you are female, these things can increase the risk: ?Using these methods to prevent : ?A medicine that kills sperm (spermicide). ?A device that blocks sperm (diaphragm). ?Having low levels of a female hormone (estrogen). ?Being . You are more likely to develop this condition if: You have genes that add to your risk. You are sexually active. You take antibiotic medicines. You have trouble peeing because of: ?A prostate that is bigger than normal, if you are male. ?A blockage in the part of your body that drains pee from the bladder. ?A kidney stone. ?A nerve condition that affects your bladder. ?Not getting enough to drink. ?Not peeing often enough. You have other conditions, such as: ?Diabetes. ?A weak disease-fighting system (immune system). ?Sickle cell disease. ?Gout. ?Injury of the spine. What are the signs or symptoms? Symptoms of this condition include: Needing to pee right away. Peeing small amounts often. Pain or burning when peeing. Blood in the pee. Pee that smells bad or not like normal. Trouble peeing. Pee that is cloudy. Fluid coming from the vagina, if you are female. Pain in the belly or lower back. Other symptoms include: Vomiting. Not feeling hungry. Feeling mixed up (confused). This may be the first symptom in older adults. Being tired and grouchy (irritable). A fever. Watery poop (diarrhea). How is this treated? Taking antibiotic medicine. Taking other medicines. Drinking enough water. In some cases, you may need to see a specialist. Follow these instructions at home: Medicines Take diyj-fry-nxllisw and prescription medicines only as told by your doctor. If you were prescribed an antibiotic medicine, take it as told by your doctor. Do not stop taking it even if you start to feel better. General instructions Make sure you: ?Pee until your bladder is empty. ?Do not hold pee for a long time. ?Empty your bladder after sex. ?Wipe from front to back after peeing or pooping if you are a female. Use each tissue one time when you wipe. Drink enough fluid to keep your pee pale yellow. Keep all follow-up visits. Contact a doctor if: You do not get better after 1 2 days. Your symptoms go away and then come back. Get help right away if: You have very bad back pain. You have very bad pain in your lower belly. You have a fever. You have chills. You feeling like you will vomit or you vomit. Summary A urinary tract infection (UTI) is an infection of any part of the urinary tract. This condition is caused by germs in your genital area. There are many risk factors for a UTI. Treatment includes antibiotic medicines. Drink enough fluid to keep your pee pale yellow. This information is not intended to replace advice given to you by your health care provider. Make sure you discuss any questions you have with your health care provider. Document Revised: 03/03/2021 Document Reviewed: 03/03/2021 [employer] Patient Education 2022 [employer]. Follow Up Care 06/03/2023 11:44:17 With:ESMER MENDOZA PA-C, URL Address: [address] [facility] [place] [address] [phone] When: Unknown Comments:pt to be called, sched cysto w/ possible UD [facility] Hussein 11-13-2023 Note [id number] [facility] 11-12-2023 Miscellaneous Notes Called patient to schedule his MRI orbit, [facility] has also called patient mutiple times, stated he was not going to get this done he is having Hip surgery... he told me he would call us back for appointment when everything is over with that... also stated he had a CT scan didn't think he needed this MRI FYI documented in this encounter [facility] 09-18-2023 History of Present illness Narrative Subjective Patient ID: HPI Patient is a 73-year-old male referred for hyperparathyroidism. Patient was being worked up, noted to have a PTH of 100 and ionized calcium 6.7. He does have a history of lymphoma which is remission. He also his history of bladder stones. To the best of his knowledge is kidney function is normal. He does not have exogenous sources of calcium. No family history of the same. Review of Systems ROS The specialty specific review of systems is noncontributory except for that recorded in the intake questionnaire and /or described in the history of present illness. Objective ENT Physical Exam Physical Exam Constitutional: Appearance: Normal appearance. HENT: Head: Atraumatic. Ears: External ear shows no abnormality Bilateral ear canals are clear Tympanic membranes intact, no evidence of middle ear fluid or other pathology. Nose: External nose appears to be normal Nares patent. Septal deviation to the right No evidence of polyp, mass or pus bilaterally. Oral Cavity: No evidence of trismus Lips appear normal Dental good Tongue of normal size and configuration, floor of mouth mucosa clear. Buccal mucosa shows no evidence of ulceration, mass or other abnormality Hard palate soft palate mucosa intact with no evidence of mass, ulceration or other abnormality Uvula of normal size and configuration Oropharynx: Tonsils small Posterior pharyngeal wall more Neck: No evidence of palpable abnormality Thyroid without evidence of thyromegaly or mass. No cervical lymphadenopathy present. Cardiovascular: Rate and Rhythm: Normal rate and regular rhythm. . Skin: General: Skin is warm and dry. Neurological: General: No focal deficit present. Mental Status: alert and oriented to person, place, and time. THYROID ULTRASOUND EXAMINATION Indication: Thyroid nodule After informed consent was obtained the patient was placed supine on the examining table. Patient was asked to extend the neck. Topical ultrasound jelly was used. The right lobe of the thyroid gland measures ___ 5.1 ____ cm in greatest dimension. Parenchyma is heterogeneous. No identifiable nodular mass. Nothing surrounding tissues suggestive of an enlarged parathyroid gland. The isthmus is unremarkable. The left lobe of the thyroid gland measures 5.2 0. cm greatest dimension. No identifiable nodular mass. Nothing surrounding tissue suggestive of an enlarged parathyroid gland. There is no adenopathy in the central compartment. There is no appreciable adenopathy in either lateral neck. Assessment/Plan Padmini was seen today for hypercalcemia. Diagnoses and all orders for this visit: Primary hyperparathyroidism (CMS/HCC) (Primary) Comments: Patient appears to have primary hyperparathyroidism. I have ordered a sestamibi scan and 4D CT scan to locate the offending parathyroid gland. Parathyroid abnormality (CMS/HCC) - Ambulatory referral to ENT Hypercalcemia I will see him back following the testing. documented in this encounter [facility] 09-18-2023 Note HNO ID: [id number] Author: Marko GARCIA MD Service: ? Author Type: Physician Type: Progress Notes Filed: 09/25/2023 14:05 Note Text: Radiation Oncology - Follow Up Note PATIENT NAME: Padmini Lloyd PATIENT DIAGNOSIS: 1. Prostate adenocarcinoma, initial PSA 4.66, biopsy [place] score 3 + 3 = 6 (grade group 1), clinical stage T1c N0 M0 , s/p I-125 prostate seed implant on 11/28/16. 2. 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 11/16/21:Doing much better. Had COVID infection earlier this year with significant pulmonary compromise nearly on the ventilator. Has been recuperating well. Recently stopped needing supplemental O2. Denies chest pain. Denies fever chills night sweats. Denies visual change. 05/17/21:Doing well. Vision intact. No diplopia. No significant headache or other changes. Recent ophthalmology exam unremarkable other than some mild posttreatment changes. 03/02/2021:Doing well. Patient has been good. He has had some matting of the left eye in the morning, this is nearly resolved with eyedrops. Denies any pain or headache. No fever or chills. Is very active. RADIOLOGY: PET CT 09/17/2023: IMPRESSION: HEAD/NECK: * No FDG avid neoplastic process. No recurrent hypermetabolic left orbital soft tissue. CHEST: * No FDG avid neoplastic process. * Previously noted pleural-based right lower lobe opacity has decreased in size, with only mild residual linear opacity remaining in this region, suggestive of improved atelectasis. ABDOMEN/PELVIS: * New hypermetabolic left pelvic and bilateral inguinal nodes, left greater than right. In the setting of left hip inflammatory findings, these nodes may be benign/reactive. However, given history of both lymphoma and prostate cancer, ashely metastatic involvement cannot be excluded and continued close attention on follow-up is recommended. 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 This can be further evaluated with MRI. MRI orbit 11/15/2022: Since 05/07/2022 the ill-defined subtly enhancing curvilinear soft tissue in the superior left orbit has substantially decreased in size and degree of enhancement. No new intraorbital abnormality. MRI orbit with and without contrast 05/07/2022: Minimal curvilinear enhancing soft tissue superior left orbit stable from November 2021 exam. Markedly improved from October 2020 exam. MRI orbit with and without contrast 11/13/2021: Ill-defined faintly enhancing curvilinear soft tissue superior left orbit similar to slightly decreased in size compared with May scan. Degree of enhancement less pronounced. No other findings. PET/CT 05/11/2021,1. NECK: * No new FDG avid neoplastic process. Interval decreased size in FDG avidity of infiltrative left orbital lesion. Residual left orbital fat stranding demonstrated FDG activity below the blood pool background. Deauville score: 2 2. CHEST: * No FDG avid neoplastic process. Unchanged pleural-based right lower lobe opacity without significant FDG avidity, compatible with scarring/atelectasis. 3. ABDOMEN/PELVIS: * No FDG avid neoplastic process. 4. EXTREMITIES/SKELETON: * No suspicious FDG avid osseous lesion. MRI orbit 05/08/2021, moderate interval improvement. Thin rind of abnormal tissue along superior aspect of left orbit. LABORATORY: PSA 11/15/2022 less than 0.13 PSA (ng/mL) Date Value 08/28/2023 <0.02 08/21/2022 0.02 11/13/2021 0.03 06/21/2021 <0.1 07/18/2020 0.11 07/15/2019 0.21 01/21/2019 0.45 ALLERGIES: ALLERGIES Allergen Reactions Avelox [Moxifloxaci* Mental Status Change Bactrim [Sulfametho* Mental Status Change, Other: See Comments Renal Failure Quinolones Other: See Comments Confusion Sulfa (Sulfonamide * Other: See Comments Abdomin pain MEDICATIONS: nebivolol (BYSTOLIC) 10 mg tablet Take 10 mg by mouth every morning. ZINC ORAL Take 25 mg by mouth. Magnesium 250 mg tab Take 250 mg by mouth. losartan (COZAAR) 100 mg tablet Take 100 mg by mouth once daily. cyanocobalamin (VITAMIN B-12) 1,000 mcg tab Take 1,000 mcg by mouth two times a week. warfarin sodium (WARFARIN ORAL) Take by mouth daily as directed. As Directed ergocalciferol, vitamin D2, (VITAMIN D2 ORAL) Take by mouth. Multivitamin capsule Take 1 capsule by mouth once daily. iv contrast (will be provided with radiology test) MRI hip/pelvis LTInject, intravenously, once for 1 dose. No IV access, insert saline lock prior to the beginning of sedation, infusion, injection of imaging exam. Discontinue saline lock post exam. If Pt. has a central line o (more content not included)... [facility] 09-18-2023 History of Present illness Narrative Images from the original note were not included. Radiation Oncology - Follow Up Note PATIENT NAME: Padmini Lloyd PATIENT DIAGNOSIS: 1. Prostate adenocarcinoma, initial PSA 4.66, biopsy [place] score 3 + 3 = 6 (grade group 1), clinical stage T1c N0 M0 , s/p I-125 prostate seed implant on 11/28/16. 2. 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 11/16/21:Doing much better. Had COVID infection earlier this year with significant pulmonary compromise nearly on the ventilator. Has been recuperating well. Recently stopped needing supplemental O2. Denies chest pain. Denies fever chills night sweats. Denies visual change. 05/17/21:Doing well. Vision intact. No diplopia. No significant headache or other changes. Recent ophthalmology exam unremarkable other than some mild posttreatment changes. 03/02/2021:Doing well. Patient has been good. He has had some matting of the left eye in the morning, this is nearly resolved with eyedrops. Denies any pain or headache. No fever or chills. Is very active. RADIOLOGY: PET CT 09/17/2023: IMPRESSION: HEAD/NECK: * No FDG avid neoplastic process. No recurrent hypermetabolic left orbital soft tissue. CHEST: * No FDG avid neoplastic process. * Previously noted pleural-based right lower lobe opacity has decreased in size, with only mild residual linear opacity remaining in this region, suggestive of improved atelectasis. ABDOMEN/PELVIS: * New hypermetabolic left pelvic and bilateral inguinal nodes, left greater than right. In the setting of left hip inflammatory findings, these nodes may be benign/reactive. However, given history of both lymphoma and prostate cancer, ashely metastatic involvement cannot be excluded and continued close attention on follow-up is recommended. 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 This can be further evaluated with MRI. MRI orbit 11/15/2022: Since 05/07/2022 the ill-defined subtly enhancing curvilinear soft tissue in the superior left orbit has substantially decreased in size and degree of enhancement. No new intraorbital abnormality. MRI orbit with and without contrast 05/07/2022: Minimal curvilinear enhancing soft tissue superior left orbit stable from November 2021 exam. Markedly improved from October 2020 exam. MRI orbit with and without contrast 11/13/2021: Ill-defined faintly enhancing curvilinear soft tissue superior left orbit similar to slightly decreased in size compared with May scan. Degree of enhancement less pronounced. No other findings. PET/CT 05/11/2021,1. NECK: * No new FDG avid neoplastic process. Interval decreased size in FDG avidity of infiltrative left orbital lesion. Residual left orbital fat stranding demonstrated FDG activity below the blood pool background. Deauville score: 2 2. CHEST: * No FDG avid neoplastic process. Unchanged pleural-based right lower lobe opacity without significant FDG avidity, compatible with scarring/atelectasis. 3. ABDOMEN/PELVIS: * No FDG avid neoplastic process. 4. EXTREMITIES/SKELETON: * No suspicious FDG avid osseous lesion. MRI orbit 05/08/2021, moderate interval improvement. Thin rind of abnormal tissue along superior aspect of left orbit. LABORATORY: PSA 11/15/2022 less than 0.13 PSA (ng/mL) Date Value 08/28/2023 <0.02 08/21/2022 0.02 11/13/2021 0.03 06/21/2021 <0.1 07/18/2020 0.11 07/15/2019 0.21 01/21/2019 0.45 ALLERGIES: ALLERGIES Allergen Reactions Avelox [Moxifloxaci* Mental Status Change Bactrim [Sulfametho* Mental Status Change, Other: See Comments Renal Failure Quinolones Other: See Comments Confusion Sulfa (Sulfonamide * Other: See Comments Abdomin pain MEDICATIONS: nebivolol (BYSTOLIC) 10 mg tablet Take 10 mg by mouth every morning. ZINC ORAL Take 25 mg by mouth. Magnesium 250 mg tab Take 250 mg by mouth. losartan (COZAAR) 100 mg tablet Take 100 mg by mouth once daily. cyanocobalamin (VITAMIN B-12) 1,000 mcg tab Take 1,000 mcg by mouth two times a week. warfarin sodium (WARFARIN ORAL) Take by mouth daily as directed. As Directed ergocalciferol, vitamin D2, (VITAMIN D2 ORAL) Take by mouth. Multivitamin capsule Take 1 capsule by mouth once daily. iv contrast (will be provided with radiology test) MRI hip/pelvis LTInject, intravenously, once for 1 dose. No IV access, insert saline lock prior to the beginning of sedation, infusion, injection of imaging exam. Discontinue saline lock post exam. If Pt. has a central line or IVAD, may access for administration according to line specific nursing protocol. Once exam is complete flush line and de-access according to line specific nursing protocol in the MR contrast administration guidelines link REVIEW OF SYSTEMS NECK: Negative for lumps, goiter, pain and significant neck swelling RESPIRATORY: Negative for cough, hemoptysis, wheezing, COPD, dyspnea or shortness of breath MUSCULOSKELETAL: Negative for joint pain or swelling, back pain or muscle pain SKIN: Negative for lesions, rash, and itching NEURO: No history of headaches, syncope, paralysis, seizures or tremors PHYSICAL EXAM: BP 149/82 Pulse 69 Temp 36.4 C (97.6 F) Resp 16 Wt 108.9 kg (240 lb 1.3 oz) SpO2 96% BMI 35.72 kg/m KPS: 100 General Appearance: Well appearing, alert, in no acute distress, well-hydrated, well nourished.. Skin: Skin color, texture, turgor normal, no suspicious rashes or lesions. Eyes: No obvious scleral lesions. No exophthalmos Extraocular movements intact. Neck: No adenopathy or masses notable Abdomen: Soft nontender without sign annoyingly Lymph nodes: No neck supraclavicular or axillary lymphadenopathy ASSESSMENT/PLAN: 1. Prostate adenocarcinoma, initial PSA 4.66, biopsy [place] score 3 + 3 = 6 (grade group 1), clinical stage T1c N0 M0 , s/p I-125 prostate seed implant on 11/28/16. Doing well stable low PSA. Continue PSA surveillance 2. 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 Continue surveillance with MRI due in November. 3. Right lung nodule likely benign. PET scan in 05/25 showing stability of the lesion without uptake consistent with benign nodule. No further testing necessary. Most recent PET scan without remarkable findings in this area 4. Left lower extremity pain. PET scan demonstrating findings suspicious for avascular necrosis. MRI recommended which has been ordered. Patient does also have further follow-up with neurology and Dr. Goldsmith-- spoke with him today. Signed by: Marko Garcia MD cc: MD Dr. Chance Crowley MD documented in this encounter [facility] 09-16-2023 Note HNO ID: [id number] Author: JEFFERY MARTINES RT(R) Service: ? Author Type: Technologist Type: Progress Notes Filed: 09/16/2023 14:31 Note Text: RADIOLOGY SERVICE PROGRESS NOTE SERVICE DATE: 09/16/2023 SERVICE TIME: 2:30 PM PATIENT IDENTITY VERIFICATION COMPLETED USING TWO (2) STANDARD IDENTIFIERS: Name and Date of confirmed by patient verbally POST EXAM PIV STATUS: Discontinued PROCEDURE TYPE: NM INJECT: PET/CT BODY SCAN. 14.4 mCi F18 FDG. No other medications given.. ADMINISTRATION TIME: 1339 PATIENT DISCHARGED TO: Ambulatory patient, left OR department area. A Diagnostic radioactive procedure has taken place, with no further precautions necessary other than routine body substance precautions. More information regarding radiation safety can be found using this link: [email or web address] SIGNATURE: RT Emiliano(R) PATIENT NAME: Padmini Lloyd DATE: September 16, 2023 TIME: 2:30 PM PAGER/CONTACT #: [facility] 09-16-2023 Note HNO ID: [id number] Author: KAREY GARRISON RN Service: ? Author Type: Registered Nurse Type: Progress Notes Filed: 09/16/2023 13:41 Note Text: Radiology Service Progress Note DATE OF SERVICE: September 16, 2023 TIME: 1:39 PM PATIENT IDENTITY VERIFICATION COMPLETED USING TWO (2) STANDARD IDENTIFIERS: Name and Date of confirmed by patient verbally. FALL SCREENING: Has the patient had 2 falls in the last year or 1 fall with injury or currently using an Ambulatory Assistive Device (Walker, Cane, Wheelchair, Crutches, etc.)? No PATIENT GENDER DATA: Male EXAM: CT -CONTRAST INDUCED NEPHROPATHY RISK FACTORS: Not applicable CREATININE: Creatinine Date Value Ref Range Status 08/28/2023 1.16 0.73 - 1.22 mg/dL Final 03/02/2021 1.12 0.73 - 1.22 mg/dL Final 12/08/2020 1.07 0.73 - 1.22 mg/dL Final Estimated Glomerular Filtration Rate Date Value Ref Range Status 08/28/2023 67 >=60 mL/min/1.73m? Final Comment: Estimated Glomerular Filtration Rate (eGFR) is calculated using the 2020 CKD-EPI creatinine equation. This equation utilizes serum creatinine, sex, and age as parameters. The creatinine assay has traceable calibration to isotope dilution-mass spectrometry. Refer to KDIGO guidelines for clinical interpretation. In patients with unstable renal function, e.g. those with acute kidney injury, the eGFR may not accurately reflect actual GFR. eGFR- Date Value Ref Range Status 03/02/2021 >60 Final P.O.C.T. RESULTS: N/A September 16, 2023 TREATMENT: N/A IV SITE: Ambulatory: A peripheral IV was started in the Right antecubital site with a Angio cath: 22 gauge. IV SITE APPEARANCE: Clean,Dry and Intact SIGNATURE: Karey Garrison RN PATIENT NAME: Padmini Lloyd DATE: September 16, 2023 TIME: 1:39 PM [facility] 09-05-2023 Note HNO ID: [id number] Author: Marko GARCIA MD Service: ? Author Type: Physician Type: Progress Notes Filed: 09/05/2023 09:59 Note Text: Radiation Oncology - Follow Up Note PATIENT NAME: Padmini Lloyd PATIENT DIAGNOSIS: 1. Prostate adenocarcinoma, initial PSA 4.66, biopsy [place] score 3 + 3 = 6 (grade group 1), clinical stage T1c N0 M0 , s/p I-125 prostate seed implant on 11/28/16. 2. 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 Has had some fasciculations of his left upper thigh. Denies headache. Denies visual change. Underwent recent visual examination without remarkable findings. Has had x-rays and cover with out remarkable findings. 11/21/22:Doing well. Denies any significant new issues or problems. 11/16/21:Doing much better. Had COVID infection earlier this year with significant pulmonary compromise nearly on the ventilator. Has been recuperating well. Recently stopped needing supplemental O2. Denies chest pain. Denies fever chills night sweats. Denies visual change. 05/17/21:Doing well. Vision intact. No diplopia. No significant headache or other changes. Recent ophthalmology exam unremarkable other than some mild posttreatment changes. 03/02/2021:Doing well. Patient has been good. He has had some matting of the left eye in the morning, this is nearly resolved with eyedrops. Denies any pain or headache. No fever or chills. Is very active. RADIOLOGY: MRI orbit 11/15/2022: Since 05/07/2022 the ill-defined subtly enhancing curvilinear soft tissue in the superior left orbit has substantially decreased in size and degree of enhancement. No new intraorbital abnormality. MRI orbit with and without contrast 05/07/2022: Minimal curvilinear enhancing soft tissue superior left orbit stable from November 2021 exam. Markedly improved from October 2020 exam. MRI orbit with and without contrast 11/13/2021: Ill-defined faintly enhancing curvilinear soft tissue superior left orbit similar to slightly decreased in size compared with May scan. Degree of enhancement less pronounced. No other findings. PET/CT 05/11/2021,1. NECK: * No new FDG avid neoplastic process. Interval decreased size in FDG avidity of infiltrative left orbital lesion. Residual left orbital fat stranding demonstrated FDG activity below the blood pool background. Deauville score: 2 2. CHEST: * No FDG avid neoplastic process. Unchanged pleural-based right lower lobe opacity without significant FDG avidity, compatible with scarring/atelectasis. 3. ABDOMEN/PELVIS: * No FDG avid neoplastic process. 4. EXTREMITIES/SKELETON: * No suspicious FDG avid osseous lesion. MRI orbit 05/08/2021, moderate interval improvement. Thin rind of abnormal tissue along superior aspect of left orbit. LABORATORY: Latest Reference Range AND Units 08/28/23 10:01 Sodium 136 - 144 mmol/L 140 Potassium 3.7 - 5.1 mmol/L 4.4 Chloride 97 - 105 mmol/L 106 (H) CO2 22 - 30 mmol/L 26 BUN 9 - 24 mg/dL 25 (H) Creatinine 0.73 - 1.22 mg/dL 1.16 Glucose 74 - 99 mg/dL 96 Protein, Total 6.3 - 8.0 g/dL 7.0 Calcium 8.5 - 10.2 mg/dL 11.6 (H) Albumin 3.9 - 4.9 g/dL 4.2 Bilirubin, Total 0.2 - 1.3 mg/dL 0.6 Alkaline Phosphatase 38 - 113 U/L 146 (H) ALT 10 - 54 U/L 22 AST 14 - 40 U/L 16 Anion Gap 9 - 18 mmol/L 8 (L) LD 135 - 225 U/L 167 eGFR >=60 mL/min/1.73m? 67 PSA <2.60 ng/mL <0.02 WBC 3.70 - 11.00 k/uL 6.53 RBC 4.20 - 6.00 m/uL 5.56 Hemoglobin 13.0 - 17.0 g/dL 16.4 Hematocrit 39.0 - 51.0 % 49.5 Platelet Count 150 - 400 k/uL 210 MCV 80.0 - 100.0 fL 89.0 MCH 26.0 - 34.0 pg 29.5 MCHC 30.5 - 36.0 g/dL 33.1 MPV 9.0 - 12.7 fL 8.8 (L) RDW-CV 11.5 - 15.0 % 13.2 DTYPE Auto Neut% % 42.3 Abs Neut (ANC) 1.45 - 7.50 k/uL 2.77 Lymph% % 44.3 Abs Lymph 1.00 - 4.00 k/uL 2.89 [place]% % 11.5 Abs [place] <0.87 k/uL 0.75 Eosin% % 0.9 Abs Eosin <0.46 k/uL 0.06 Baso% % 0.5 Abs Baso <0.11 k/uL 0.03 Immature Gran % % 0.5 IMMATURE GRANS (ABS) <0.10 k/uL 0.03 NRBC /100 WBC 0.0 Absolute nRBC <0.01 k/uL <0.01 WSR 0 - 15 mm/hr 8 (H): Data is abnormally high (L): Data is abnormally low PSA 11/15/2022 less than 0.13 PSA (ng/mL) Date Value 08/28/2023 <0.02 08/21/2022 0.02 11/13/2021 0.03 06/21/2021 <0.1 07/18/2020 0.11 07/15/2019 0.21 01/21/2019 0.45 Latest Reference Range AND Units 08/28/23 10:01 WBC 3.70 - 11.00 k/uL 6.53 RBC 4.20 - 6.00 m/uL 5.56 Hemoglobin 13.0 - 17.0 g/dL 16.4 Hematocrit 39.0 - 51.0 % 49.5 Platelet Count 150 - 400 k/uL 210 MCV 80.0 - 100.0 fL 89.0 MCH 26.0 - 34.0 pg 29.5 MCHC 30.5 - 36.0 g/dL 33.1 MPV 9.0 - 12.7 fL 8.8 (L) RDW-CV 11.5 - 15.0 % 13.2 DTYPE Auto Neut% % 42.3 Abs Neut (ANC) 1.45 - 7.50 k/uL 2.77 Lymph% % 44.3 Abs Lymph 1.00 - 4. (more content not included)... [facility] 09-05-2023 History of Present illness Narrative Images from the original note were not included. Radiation Oncology - Follow Up Note PATIENT NAME: Padmini Lloyd PATIENT DIAGNOSIS: 1. Prostate adenocarcinoma, initial PSA 4.66, biopsy [place] score 3 + 3 = 6 (grade group 1), clinical stage T1c N0 M0 , s/p I-125 prostate seed implant on 11/28/16. 2. 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 Has had some fasciculations of his left upper thigh. Denies headache. Denies visual change. Underwent recent visual examination without remarkable findings. Has had x-rays and cover with out remarkable findings. 11/21/22:Doing well. Denies any significant new issues or problems. 11/16/21:Doing much better. Had COVID infection earlier this year with significant pulmonary compromise nearly on the ventilator. Has been recuperating well. Recently stopped needing supplemental O2. Denies chest pain. Denies fever chills night sweats. Denies visual change. 05/17/21:Doing well. Vision intact. No diplopia. No significant headache or other changes. Recent ophthalmology exam unremarkable other than some mild posttreatment changes. 03/02/2021:Doing well. Patient has been good. He has had some matting of the left eye in the morning, this is nearly resolved with eyedrops. Denies any pain or headache. No fever or chills. Is very active. RADIOLOGY: MRI orbit 11/15/2022: Since 05/07/2022 the ill-defined subtly enhancing curvilinear soft tissue in the superior left orbit has substantially decreased in size and degree of enhancement. No new intraorbital abnormality. MRI orbit with and without contrast 05/07/2022: Minimal curvilinear enhancing soft tissue superior left orbit stable from November 2021 exam. Markedly improved from October 2020 exam. MRI orbit with and without contrast 11/13/2021: Ill-defined faintly enhancing curvilinear soft tissue superior left orbit similar to slightly decreased in size compared with May scan. Degree of enhancement less pronounced. No other findings. PET/CT 05/11/2021,1. NECK: * No new FDG avid neoplastic process. Interval decreased size in FDG avidity of infiltrative left orbital lesion. Residual left orbital fat stranding demonstrated FDG activity below the blood pool background. Deauville score: 2 2. CHEST: * No FDG avid neoplastic process. Unchanged pleural-based right lower lobe opacity without significant FDG avidity, compatible with scarring/atelectasis. 3. ABDOMEN/PELVIS: * No FDG avid neoplastic process. 4. EXTREMITIES/SKELETON: * No suspicious FDG avid osseous lesion. MRI orbit 05/08/2021, moderate interval improvement. Thin rind of abnormal tissue along superior aspect of left orbit. LABORATORY: Latest Reference Range & Units 08/28/23 10:01 Sodium 136 - 144 mmol/L 140 Potassium 3.7 - 5.1 mmol/L 4.4 Chloride 97 - 105 mmol/L 106 (H) CO2 22 - 30 mmol/L 26 BUN 9 - 24 mg/dL 25 (H) Creatinine 0.73 - 1.22 mg/dL 1.16 Glucose 74 - 99 mg/dL 96 Protein, Total 6.3 - 8.0 g/dL 7.0 Calcium 8.5 - 10.2 mg/dL 11.6 (H) Albumin 3.9 - 4.9 g/dL 4.2 Bilirubin, Total 0.2 - 1.3 mg/dL 0.6 Alkaline Phosphatase 38 - 113 U/L 146 (H) ALT 10 - 54 U/L 22 AST 14 - 40 U/L 16 Anion Gap 9 - 18 mmol/L 8 (L) LD 135 - 225 U/L 167 eGFR >=60 mL/min/1.73m 67 PSA <2.60 ng/mL <0.02 WBC 3.70 - 11.00 k/uL 6.53 RBC 4.20 - 6.00 m/uL 5.56 Hemoglobin 13.0 - 17.0 g/dL 16.4 Hematocrit 39.0 - 51.0 % 49.5 Platelet Count 150 - 400 k/uL 210 MCV 80.0 - 100.0 fL 89.0 MCH 26.0 - 34.0 pg 29.5 MCHC 30.5 - 36.0 g/dL 33.1 MPV 9.0 - 12.7 fL 8.8 (L) RDW-CV 11.5 - 15.0 % 13.2 DTYPE Auto Neut% % 42.3 Abs Neut (ANC) 1.45 - 7.50 k/uL 2.77 Lymph% % 44.3 Abs Lymph 1.00 - 4.00 k/uL 2.89 [place]% % 11.5 Abs [place] <0.87 k/uL 0.75 Eosin% % 0.9 Abs Eosin <0.46 k/uL 0.06 Baso% % 0.5 Abs Baso <0.11 k/uL 0.03 Immature Gran % % 0.5 IMMATURE GRANS (ABS) <0.10 k/uL 0.03 NRBC /100 WBC 0.0 Absolute nRBC <0.01 k/uL <0.01 WSR 0 - 15 mm/hr 8 (H): Data is abnormally high (L): Data is abnormally low PSA 11/15/2022 less than 0.13 PSA (ng/mL) Date Value 08/28/2023 <0.02 08/21/2022 0.02 11/13/2021 0.03 06/21/2021 <0.1 07/18/2020 0.11 07/15/2019 0.21 01/21/2019 0.45 [facility] Reference Range & Units 08/28/23 10:01 WBC 3.70 - 11.00 k/uL 6.53 RBC 4.20 - 6.00 m/uL 5.56 Hemoglobin 13.0 - 17.0 g/dL 16.4 Hematocrit 39.0 - 51.0 % 49.5 Platelet Count 150 - 400 k/uL 210 MCV 80.0 - 100.0 fL 89.0 MCH 26.0 - 34.0 pg 29.5 MCHC 30.5 - 36.0 g/dL 33.1 MPV 9.0 - 12.7 fL 8.8 (L) RDW-CV 11.5 - 15.0 % 13.2 DTYPE Auto Neut% % 42.3 Abs Neut (ANC) 1.45 - 7.50 k/uL 2.77 Lymph% % 44.3 Abs Lymph 1.00 - 4.00 k/uL 2.89 [place]% % 11.5 Abs [place] <0.87 k/uL 0.75 Eosin% % 0.9 Abs Eosin <0.46 k/uL 0.06 Baso% % 0.5 Abs Baso <0.11 k/uL 0.03 Immature Gran % % 0.5 IMMATURE GRANS (ABS) <0.10 k/uL 0.03 NRBC /100 WBC 0.0 Absolute nRBC <0.01 k/uL <0.01 (L): Data is abnormally low Latest Reference Range & Units 08/28/23 10:01 Sodium 136 - 144 mmol/L 140 Potassium 3.7 - 5.1 mmol/L 4.4 Chloride 97 - 105 mmol/L 106 (H) CO2 22 - 30 mmol/L 26 BUN 9 - 24 mg/dL 25 (H) Creatinine 0.73 - 1.22 mg/dL 1.16 Glucose 74 - 99 mg/dL 96 Protein, Total 6.3 - 8.0 g/dL 7.0 Calcium 8.5 - 10.2 mg/dL 11.6 (H) Albumin 3.9 - 4.9 g/dL 4.2 Bilirubin, Total 0.2 - 1.3 mg/dL 0.6 Alkaline Phosphatase 38 - 113 U/L 146 (H) ALT 10 - 54 U/L 22 AST 14 - 40 U/L 16 Anion Gap 9 - 18 mmol/L 8 (L) LD 135 - 225 U/L 167 eGFR >=60 mL/min/1.73m 67 (H): Data is abnormally high (L): Data is abnormally low ALLERGIES: ALLERGIES Allergen Reactions Avelox [Moxifloxaci* Mental Status Change Bactrim [Sulfametho* Mental Status Change, Other: See Comments Renal Failure Quinolones Other: See Comments Confusion Sulfa (Sulfonamide * Other: See Comments Abdomin pain MEDICATIONS: nebivolol (BYSTOLIC) 10 mg tablet Take 10 mg by mouth every morning. ZINC ORAL Take 25 mg by mouth. Magnesium 250 mg tab Take 250 mg by mouth. losartan (COZAAR) 100 mg tablet Take 100 mg by mouth once daily. cyanocobalamin (VITAMIN B-12) 1,000 mcg tab Take 1,000 mcg by mouth two times a week. warfarin sodium (WARFARIN ORAL) Take by mouth daily as directed. As Directed ergocalciferol, vitamin D2, (VITAMIN D2 ORAL) Take by mouth. Multivitamin capsule Take 1 capsule by mouth once daily. REVIEW OF SYSTEMS PAIN ASSESSMENT: Ongoing pain left hip upper thigh and groin area which has been increasing NECK: Negative for goiter, pain or significant neck swelling RESPIRATORY: Negative for cough, hemoptysis, wheezing, COPD, dyspnea or shortness of breath CARDIOVASCULAR: Negative for chest pain, leg swelling, hypertension, CHF or palpitations MUSCULOSKELETAL: see HPI SKIN: Negative for lesions, rash, and itching. NEURO: No history of headaches, syncope, paralysis, seizures or tremors The remainder of the review of systems is negative. PHYSICAL EXAM: Pulse 71 Temp 36 C (96.8 F) Resp 18 Wt 109 kg (240 lb 4.8 oz) SpO2 97% BMI 35.76 kg/m KPS: 100 General Appearance: Well appearing, alert, in no acute distress, well-hydrated, well nourished.. Skin: Skin color, texture, turgor normal, no suspicious rashes or lesions. Eyes: No obvious scleral lesions. No exophthalmos, extraocular movements intact. Neck: No adenopathy or masses notable Abdomen: No hepatosplenomegaly, tenderness or masses Musculoskeletal: Some pain of palpation over anterior upper left No obvious masses Lymph nodes: No neck supraclavicular or axillary lymphadenopathy Neuro: Reflexes 1-2+ symmetric no obvious strength deficits ASSESSMENT/PLAN: 1. Prostate adenocarcinoma, initial PSA 4.66, biopsy [place] score 3 + 3 = 6 (grade group 1), clinical stage T1c N0 M0 , s/p I-125 prostate seed implant on 11/28/16. Doing well stable low PSA. Continue PSA surveillance 2. 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 Continue surveillance with MRI in November. 3. Right lung nodule likely benign. PET scan in 05/25 showing stability of the lesion without uptake consistent with benign nodule. No further testing necessary. 4. Hypercalcemia, possible hyperparathyroidism versus possible secondary to malignancy. Unclear etiology possibly related to prior history of lymphoma. Recommend further imaging with PET scan. PTH levels have been drawn by his family physician. 5. Left hip groin and thigh pain. PET scan for evaluation. Patient has MRI scheduled. Signed by: Marko Garcia MD cc: MD Dr. Chance Crowley MD documented in this encounter [facility] 09-05-2023 Nurse Note KELLY Matson RN documented in this encounter [facility] 09-03-2023 History of Present illness Narrative Patient ID: Padmini Lloyd is a 73 y.o. male who presents for: Subjective Padmini Lloyd is a 73 y.o. male who presents with left lower leg pain. Onset of the symptoms was years ago, last february. Pain is currently located from top of knee to groin. Pain is described as aching and tight (pulling), with intensity 6-8 on average on a 0-10 pain scale. The pain is constant and occurs several times per week, lasting all day. Associated symptoms include: pain and stiffness. Impact of symptoms on Padmini has been that he has been unable to do his exercises at home and still have good half day. Symptoms have waxed and waned. Patient has had prior leg problems. Evaluation to date: plain films: XR done and massage therapy and accupuncture. Treatment to date: see above. Review of Systems Constitutional: Negative for chills and fever. Respiratory: Negative for cough, shortness of breath and wheezing. Cardiovascular: Negative for chest pain and palpitations. Gastrointestinal: Negative for abdominal pain. Genitourinary: Negative for frequency and urgency. Objective The patient is pleasant and in no acute distress The head is normocephalic and atraumatic Although no formal testing is done, patient does not appear to have a gross neurologic deficit concerning memory and goal directed thinking during the interview. The patient has good eye contact and clear speech. The lumbar spine has some paraspinal hypertonicity. He has decreased range of motion of the lumbar spine with some discomfort at the extremes. The SI joint is nontender. He does complain of some tenderness from the Left low back around the hip but there is nothing palpable over the Left hip The left quadricep muscle is obviously atrophied compared to the right and can actually be seen through his pants. He is able to do a straight leg raise. Otherwise his strength is significantly decreased compared to the right. Hamstrings dorsiflexor and plantar flexors are fairly normal and otherwise symmetrical. The right patellar deep tendon reflex is normal at 3+. The left is a barely observable twitch of the quadricep that I actually have to feel rather than see. Achilles reflexes normal bilaterally. Sensation is grossly intact. Interestingly, he has multiple muscle knots in the Left quadriceps muscle that are tender. Study Result femur/hip X ray. A Narrative & Impression FINDINGS: Mild narrowing left hip joint. No fracture, dislocation, bone lesion. Prostatic brachytherapy seeds identified. IMPRESSION: No fracture. Mild degenerative change left hip. Calcium Correction for Hypoalbuminemia from [facility] on 09/03/2023 All calculations should be rechecked by clinician prior to use RESULT SUMMARY: 12.2 mg/dL Corrected Calcium Equivalent to 3.0 mmol/L INPUTS: Calcium --> 11.6 mg/dL Albumin --> 4.2 g/dL Normal albumin: 4 g/dL or 40 g/L --> 4.9 g/dL Office Visit on 09/03/2023 Component Date Value Ref Range Status Calcium, Ion 09/04/2023 6.1 (H) 4.7 - 5.5 mg/dL Final PARATHYROID HORMONE, INTACT 09/04/2023 100 (H) 16 - 77 pg/mL Final Comment: Interpretive Guide Intact PTH Calcium ------- Normal Parathyroid Normal Normal Hypoparathyroidism Low or Low Normal Low Hyperparathyroidism Primary Normal or High High Secondary High Normal or Low Tertiary High High Non-Parathyroid Hypercalcemia Low or Low Normal High INR 09/04/2023 1.8 (H) Final Comment: Reference Range 0.9-1.1 Moderate-intensity Warfarin Therapy 2.0-3.0 Higher-intensity Warfarin Therapy 3.0-4.0 PT 09/04/2023 18.0 (H) 9.0 - 11.5 sec Final Comment: For additional information, please refer to http://Catglobe[employer] /faq/OXR684 (This link is being provided for informational/ educational purposes only.) [employer] Result Encounter on 08/28/2023 Component Date Value Ref Range Status [facility] WBC # BLD AUTO 08/28/2023 6.53 3.70 - 11.00 k/uL Final [facility] RBC # D AUTO 08/28/2023 5.56 4.20 - 6.00 m/uL Final [facility] HGB BLD-MCNC 08/28/2023 16.4 13.0 - 17.0 g/dL Final [facility] HCT VFR D AUTO 08/28/2023 49.5 39.0 - 51.0 % Final [facility] MCV RBC AUTO 08/28/2023 89.0 80.0 - 100.0 fL Final [facility] MCH RBC QN AUTO 08/28/2023 29.5 26.0 - 34.0 pg Final [facility] MCHC RBC AUTO-MCNC 08/28/2023 33.1 30.5 - 36.0 g/dL Final [facility] RDW RBC-RTO 08/28/2023 13.2 11.5 - 15.0 % Final [facility] PLATELET # D AUTO 08/28/2023 210 150 - 400 k/uL Final [facility] PMV D AUTO 08/28/2023 8.8 (L) 9.0 - 12.7 fL Final [facility] NEUTROPHILS/LEUK NFR D AUTO 08/28/2023 42.3 % Final [facility] NEUTROPHILS # D AUTO 08/28/2023 2.77 1.45 - 7.50 k/uL Final [facility] LYMPHOCYTES/LEUK NFR D AUTO 08/28/2023 44.3 % Final [facility] LYMPHOCYTES # D AUTO 08/28/2023 2.89 1.00 - 4.00 k/uL Final [facility] MONOCYTES/LEUK NFR BLD AUTO 08/28/2023 11.5 % Final [facility] MONOCYTES # BLD AUTO 08/28/2023 0.75 <0.87 k/uL Final [facility] EOSINOPHIL/LEUK NFR BLD AUTO 08/28/2023 0.9 % Final [facility] EOSINOPHIL # BLD AUTO 08/28/2023 0.06 <0.46 k/uL Final [facility] BASOPHILS/LEUK NFR BLD AUTO 08/28/2023 0.5 % Final [facility] BASOPHILS # BLD AUTO 08/28/2023 0.03 <0.11 k/uL Final IMM GRANULOCYTES/LEUK NFR BLD AUTO 08/28/2023 0.5 % Final [facility]MM GRANULOCYTES # BLD AUTO 08/28/2023 0.03 <0.10 k/uL Final [facility] NRBC/100 WBC BLD-RTO 08/28/2023 0.0 /100 WBC Final [facility] NRBC # BLD AUTO 08/28/2023 <0.01 <0.01 k/uL Final [facility] DIFFERENTIAL METHOD BLD 08/28/2023 Auto Final [facility] LDH SERPL-CCNC 08/28/2023 167 135 - 225 U/L Final [facility] PROT SERPL-MCNC 08/28/2023 7.0 6.3 - 8.0 g/dL Final [facility] ALBUMIN SERPL-MCNC 08/28/2023 4.2 3.9 - 4.9 g/dL Final [facility] CALCIUM SERPL-MCNC 08/28/2023 11.6 (H) 8.5 - 10.2 mg/dL Final RECHECKED JT [facility] BILIRUB SERPL-MCNC 08/28/2023 0.6 0.2 - 1.3 mg/dL Final [facility] ALP SERPL-CCNC 08/28/2023 146 (H) 38 - 113 U/L Final [facility] AST SERPL-CCNC 08/28/2023 16 14 - 40 U/L Final [facility] ALT SERPL-CCNC 08/28/2023 22 10 - 54 U/L Final [facility] GLUCOSE SERPL-MCNC 08/28/2023 96 74 - 99 mg/dL Final Comment: The [place] [employer] (ADA) provides guidance for cutoff values for fasting glucose and random glucose. The ADA defines fasting as no caloric intake for at least 8 hours. Fasting plasma glucose results between 100 to 125 mg/dL indicate increased risk for diabetes (prediabetes). Fasting plasma glucose results greater than or equal to 126 mg/dL meet the criteria for diagnosis of diabetes. In the absence of unequivocal hyperglycemia, results should be confirmed by repeat testing. In a patient with classic symptoms of hyperglycemia or hyperglycemic crisis, random plasma glucose results greater than or equal to 200 mg/dL meet the criteria for diagnosis of diabetes. Reference: Standards of Medical Care in Diabetes 2016, [place] [employer]. Diabetes Care. 2016.39(Suppl 1). [facility] BUN SERPL-MCNC 08/28/2023 25 (H) 9 - 24 mg/dL Final [facility] CREAT SERPL-MCNC 08/28/2023 1.16 0.73 - 1.22 mg/dL Final [facility] SODIUM SERPL-SCNC 08/28/2023 140 136 - 144 mmol/L Final [facility] POTASSIUM SERPL-SCNC 08/28/2023 4.4 3.7 - 5.1 mmol/L Final [facility] CHLORIDE SERPL-SCNC 08/28/2023 106 (H) 97 - 105 mmol/L Final [facility] CO2 SERPL-SCNC 08/28/2023 26 22 - 30 mmol/L Final [facility] ANION GAP SERPL-SCNC 08/28/2023 8 (L) 9 - 18 mmol/L Final [facility] CREATININE + EGFR PNL SERPLBLD 08/28/2023 67 >=60 mL/min/1.73m??? Final Estimated Glomerular Filtration Rate (eGFR) is calculated using the 2020 CKD-EPI creatinine equation. This equation utilizes serum creatinine, sex, and age as parameters. The creatinine assay has traceable calibration to isotope dilution-mass spectrometry. Refer to KDIGO guidelines for clinical interpretation. In patients with unstable renal function, e.g. those with acute kidney injury, the eGFR may not accurately reflect actual GFR. [facility] ESR BLD QN WESTRGRN 08/28/2023 8 0 - 15 mm/hr Final [facility] PSA SERPL-MCNC 08/28/2023 <0.02 <2.60 ng/mL Final Total PSA test methodology used is the Electrochemiluminescence Immunoassay by [employer]. Total PSA values by differing methodologies cannot be interchanged. Patient Outreach on 07/18/2023 Component Date Value Ref Range Status INR 08/01/2023 2.5 (H) Final Comment: Reference Range 0.9-1.1 Moderate-intensity Warfarin Therapy 2.0-3.0 Higher-intensity Warfarin Therapy 3.0-4.0 PT 08/01/2023 24.7 (H) 9.0 - 11.5 sec Final Comment: For additional information, please refer to http://Catglobe[employer] /faq/JGZ958 (This link is being provided for informational/ educational purposes only.) Patient Outreach on 07/05/2023 Component Date Value Ref Range Status INR 07/17/2023 3.3 (H) Final Comment: Reference Range 0.9-1.1 Moderate-intensity Warfarin Therapy 2.0-3.0 Higher-intensity Warfarin Therapy 3.0-4.0 PT 07/17/2023 32.2 (H) 9.0 - 11.5 sec Final Comment: For additional information, please refer to http://[employer] /faq/JDR923 (This link is being provided for informational/ educational purposes only.) Patient Outreach on 06/05/2023 Component Date Value Ref Range Status INR 07/04/2023 3.2 (H) Final Comment: Reference Range 0.9-1.1 Moderate-intensity Warfarin Therapy 2.0-3.0 Higher-intensity Warfarin Therapy 3.0-4.0 PT 07/04/2023 30.9 (H) 9.0 - 11.5 sec Final Comment: For additional information, please refer to http://[employer] /faq/AQX925 (This link is being provided for informational/ educational purposes only.) External Result Encounter on 04/24/2023 Component Date Value Ref Range Status INR 04/24/2023 2.9 (H) Final Comment: Reference Range 0.9-1.1 Moderate-intensity Warfarin Therapy 2.0-3.0 Higher-intensity Warfarin Therapy 3.0-4.0 PT 04/24/2023 28.8 (H) 9.0 - 11.5 sec Final Comment: For additional information, please refer to http://[employer] /faq/BMO568 (This link is being provided for informational/ educational purposes only.) Patient Outreach on 04/04/2023 Component Date Value Ref Range Status INR 06/04/2023 2.0 (H) Final Comment: Reference Range 0.9-1.1 Moderate-intensity Warfarin Therapy 2.0-3.0 Higher-intensity Warfarin Therapy 3.0-4.0 PT 06/04/2023 20.3 (H) 9.0 - 11.5 sec Final Comment: For additional information, please refer to http://[employer] /faq/YSQ679 (This link is being provided for informational/ educational purposes only.) External Result Encounter on 04/03/2023 Component Date Value Ref Range Status INR 04/03/2023 3.6 (H) Final Comment: Reference Range 0.9-1.1 Moderate-intensity Warfarin Therapy 2.0-3.0 Higher-intensity Warfarin Therapy 3.0-4.0 PT 04/03/2023 34.5 (H) 9.0 - 11.5 sec Final Comment: For additional information, please refer to http://Phizz[employer] /faq/QLE864 (This link is being provided for informational/ educational purposes only.) Visit Vitals Ht 6' Wt 232 lb BMI 31.46 kg/m Smoking Status Former BSA 2.31 m Allergies Allergen Reactions Moxifloxacin Other Reaction(s): hives Sulfamethoxazole-Trimethoprim Other Reaction(s): shut his kidneys down Current Outpatient Medications Medication Instructions cholecalciferol (Vitamin D3) 25 MCG (1000 UT) tablet 1 tablet, Oral, Daily cyanocobalamin (Vitamin B-12) 500 MCG tablet 1 tablet, Oral, 2 times weekly, Twice a month losartan (COZAAR) 100 mg, Oral, Daily Multiple Vitamins-Minerals (ONE DAILY 50 PLUS PO) 1 tablet, Oral, Daily nebivolol (BYSTOLIC) 10 mg, Oral, Daily warfarin (Coumadin) 1 MG tablet 0.5 tablets, Oral, Daily, Take as directed per After Visit Summary. warfarin (COUMADIN) 6 mg, Oral, Every evening zinc 25 MG tablet 1 tablet, Oral, Daily Assessment/Plan Diagnoses and all orders for this visit: Hypercalcemia - Calcium, ionized; Future - PTH, intact; Future I do not think his leg symptomatology is directly tied into the hypercalcemia. He is otherwise asymptomatic. We did order the testing to confirm the hypercalcemia and by the time I got is finished this was back in [place] it is noted in the labs. We have already taking care of and another phone message getting him referred to ENT. 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 He is otherwise asymptomatic. He was wondering if this is related to his leg and I discussed with him that while not impossible I doubt that. We will eventually need to get that leg and low back further evaluated but he is requesting to get this imaging done first so he knows where he stands with this. 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 No specific evidence that there may be DVT component to his left leg problem. Continue the warfarin therapy and monitoring protimes. 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 I'm not getting any specific signs or symptoms of vascular claudication in the left leg. He has good capillary refill. Lumbar back pain with radiculopathy affecting left lower extremity Chronic problem that he has had for many years. He has been managing with conservative therapy. He notes that while the back pain is there the degree/intensity has not increased significantly associated with the left leg. Lumbar myelopathy (CMS/HCC) More of an acute problem that I am suspicious of for the degree of impairment in his left leg. It is not completely consistent with L4 but certainly tends to be in that dermatome. Eventually we will need to x-ray and MRI this. Atrophy of quadriceps femoris muscle Chronic problem that is slowly worsening. I did discuss with him the importance of continuing to use the quadriceps muscle. He needs to at least keep it engaged intermittently throughout the day with activities such as walking biking or even just doing straight leg raising exercises. thoracolumbar scoliosis is a comorbid condition. This will get reevaluated one week start the diagnostic imaging. - Protime-INR documented in this encounter [facility] 06-03-2023 Hospital Discharge instructions Patient Education 06/03/2023 11:40:23 Dietary Guidelines to Help Prevent Kidney Stones Dietary Guidelines to Help Prevent Kidney Stones Kidney stones are deposits of minerals and salts that form inside your kidneys. Your risk of developing kidney stones may be greater depending on your diet, your lifestyle, the medicines you take, and whether you have certain medical conditions. Most people can lower their chances of developing kidney stones by following the instructions below. Your dietitian may give you more specific instructions depending on your overall health and the type of kidney stones you tend to develop. What are tips for following this plan? Reading food labels Choose foods with no salt added or low-salt labels. Limit your salt (sodium) intake to less than 1,500 mg a day. Choose foods with calcium for each meal and snack. Try to eat about 300 mg of calcium at each meal. Foods that contain 200 500 mg of calcium a serving include: ?8 oz (237 mL) of milk, ssfxsft-zvvaohyoyybb-vzzbp milk, and calcium-fortifiedfruit juice. Calcium-fortified means that calcium has been added to these drinks. ?8 oz (237 mL) of kefir, yogurt, and soy yogurt. ?4 oz (114 g) of tofu. ?1 oz (28 g) of cheese. ?1 cup (150 g) of dried figs. ?1 cup (91 g) of cooked broccoli. ?One 3 oz (85 g) can of sardines or mackerel. Most people need 1,000 1,500 mg of calcium a day. Talk to your dietitian about how much calcium is recommended for you. Shopping Buy plenty of fresh fruits and vegetables. Most people do not need to avoid fruits and vegetables, even if these foods contain nutrients that may contribute to kidney stones. When shopping for convenience foods, choose: ?Whole pieces of fruit. ?Pre-made salads with dressing on the side. ?Low-fat fruit and yogurt smoothies. Avoid buying frozen meals or prepared deli foods. These can be high in sodium. Look for foods with live cultures, such as yogurt and kefir. Choose high-fiber grains, such as whole-wheat breads, oat bran, and wheat cereals. Cooking Do not add salt to food when cooking. Place a salt shaker on the table and allow each person to add his or her own salt to taste. Use vegetable protein, such as beans, textured vegetable protein (TVP), or tofu, instead of meat in pasta, casseroles, and soups. Meal planning Eat less salt, if told by your dietitian. To do this: ?Avoid eating processed or pre-made food. ?Avoid eating fast food. Eat less animal protein, including cheese, meat, poultry, or fish, if told by your dietitian. To do this: ?Limit the number of times you have meat, poultry, fish, or cheese each week. Eat a diet free of meat at least 2 days a week. ?Eat only one serving each day of meat, poultry, fish, or seafood. ?When you prepare animal protein, cut pieces into small portion sizes. For most meat and fish, one serving is about the size of the palm of your hand. Eat at least five servings of fresh fruits and vegetables each day. To do this: ?Keep fruits and vegetables on hand for snacks. ?Eat one piece of fruit or a handful of berries with breakfast. ?Have a salad and fruit at lunch. ?Have two kinds of vegetables at dinner. Limit foods that are high in a substance called oxalate. These include: ?Spinach (cooked), rhubarb, beets, sweet potatoes, and [place] chard. ?Peanuts. ?Potato chips, mongolian fries, and baked potatoes with skin on. ?Nuts and nut products. ?Chocolate. If you regularly take a diuretic medicine, make sure to eat at least 1 or 2 servings of fruits or vegetables that are high in potassium each day. These include: ?Avocado. ?Banana. ?[place], prune, carrot, or tomato juice. ?Baked potato. ?Cabbage. ?Beans and split peas. Lifestyle Drink enough fluid to keep your urine pale yellow. This is the most important thing you can do. Spread your fluid intake throughout the day. If you drink alcohol: ?Limit how much you use to: ?0 1 drink a day for women who are not . ?0 2 drinks a day for men. ?Be aware of how much alcohol is in your drink. In the [place] one drink equals one 12 oz bottle of beer (355 mL), one 5 oz glass of wine (148 mL), or one 1 oz glass of hard liquor (44 mL). Lose weight if told by your health care provider. Work with your dietitian to find an eating plan and weight loss strategies that work best for you. General information Talk to your health care provider and dietitian about taking daily supplements. You may be told the following depending on your health and the cause of your kidney stones: ?Not to take supplements with vitamin C. ?To take a calcium supplement. ?To take a daily probiotic supplement. ?To take other supplements such as magnesium, fish oil, or vitamin B6. Take jdzp-izo-semfsqs and prescription medicines only as told by your health care provider. These include supplements. What foods should I limit? Limit your intake of the following foods, or eat them as told by your dietitian. Vegetables Spinach. Rhubarb. Beets. Canned vegetables. Pickles. Olives. Baked potatoes with skin. Grains Wheat bran. Baked goods. Salted crackers. Cereals high in sugar. Meats and other proteins Nuts. Nut butters. Large portions of meat, poultry, or fish. Salted, precooked, or cured meats, such as sausages, meat loaves, and hot dogs. Dairy Cheese. Beverages Regular soft drinks. Regular vegetable juice. Seasonings and condiments Seasoning blends with salt. Salad dressings. Soy sauce. Ketchup. Barbecue sauce. Other foods Canned soups. Canned pasta sauce. Casseroles. Pizza. Lasagna. Frozen meals. Potato chips. Hong Konger fries. The items listed above may not be a complete list of foods and beverages you should limit. Contact a dietitian for more information. What foods should I avoid? Talk to your dietitian about specific foods you should avoid based on the type of kidney stones you have and your overall health. Fruits Grapefruit. The item listed above may not be a complete list of foods and beverages you should avoid. Contact a dietitian for more information. Summary Kidney stones are deposits of minerals and salts that form inside your kidneys. You can lower your risk of kidney stones by making changes to your diet. The most important thing you can do is drink enough fluid. Drink enough fluid to keep your urine pale yellow. Talk to your dietitian about how much calcium you should have each day, and eat less salt and animal protein as told by your dietitian. This information is not intended to replace advice given to you by your health care provider. Make sure you discuss any questions you have with your health care provider. Document Revised: 04/02/2022 Document Reviewed: 04/02/2022 [employer] Patient Education 2022 [employer]. Follow Up Care 05/21/2023 08:54:52 With:APURVA CALIX, Domenico Haywood, URL Address: [facility] [employer] [address] [place] [phone] When:Within 6 Month(s) [facility] 04-29-2023 Hospital Discharge instructions Patient Education 04/29/2023 07:50:03 Prostate Cancer Screening Prostate Cancer Screening Prostate cancer screening is testing that is done to check for the presence of prostate cancer in men. The prostate gland is a walnut-sized gland that is located below the bladder and in front of the rectum in males. The function of the prostate is to add fluid to semen during ejaculation. Prostate cancer is one of the most common types of cancer in men. Who should have prostate cancer screening? Screening recommendations vary based on age and other risk factors, as well as between the professional organizations who make the recommendations. In general, screening is recommended if: You are age 50 to 70 and have an average risk for prostate cancer. You should talk with your health care provider about your need for screening and how often screening should be done. Because most prostate cancers are slow growing and will not cause , screening in this age group is generally reserved for men who have a 10- to 15-year life expectancy. You are younger than age 50, and you have these risk factors: ?Having a father, brother, or uncle who has been diagnosed with prostate cancer. The risk is higher if your family member's cancer occurred at an early age or if you have multiple family members with prostate cancer at an early age. ?Being a male who is Black or is of [place] or sub-Saharan descent. In general, screening is not recommended if: You are younger than age 40. You are between the ages of 40 and 49 and you have no risk factors. You are 70 years of age or older. At this age, the risks that screening can cause are greater than the benefits that it may provide. If you are at high risk for prostate cancer, your health care provider may recommend that you have screenings more often or that you start screening at a younger age. How is screening for prostate cancer done? The recommended prostate cancer screening test is a blood test called the prostate-specific antigen (PSA) test. PSA is a protein that is made in the prostate. As you age, your prostate naturally produces more PSA. Abnormally high PSA levels may be caused by: Prostate cancer. An enlarged prostate that is not caused by cancer (benign prostatic hyperplasia, or BPH). This condition is very common in older men. A prostate gland infection (prostatitis) or urinary tract infection. Certain medicines such as male hormones (like testosterone) or other medicines that raise testosterone levels. A rectal exam may be done as part of prostate cancer screening to help provide information about the size of your prostate gland. When a rectal exam is performed, it should be done after the PSA level is drawn to avoid any effect on the results. Depending on the PSA results, you may need more tests, such as: A physical exam to check the size of your prostate gland, if not done as part of screening. Blood and imaging tests. A procedure to remove tissue samples from your prostate gland for testing (biopsy). This is the only way to know for certain if you have prostate cancer. What are the benefits of prostate cancer screening? Screening can help to identify cancer at an early stage, before symptoms start and when the cancer can be treated more easily. There is a small chance that screening may lower your risk of dying from prostate cancer. The chance is small because prostate cancer is a slow-growing cancer, and most men with prostate cancer from a different cause. What are the risks of prostate cancer screening? The main risk of prostate cancer screening is diagnosing and treating prostate cancer that would never have caused any symptoms or problems. This is called overdiagnosisand overtreatment. PSA screening cannot tell you if your PSA is high due to cancer or a different cause. A prostate biopsy is the only procedure to diagnose prostate cancer. Even the results of a biopsy may not tell you if your cancer needs to be treated. Slow-growing prostate cancer may not need any treatment other than monitoring, so diagnosing and treating it may cause unnecessary stress or other side effects. Questions to ask your health care provider When should I start prostate cancer screening? What is my risk for prostate cancer? How often do I need screening? What type of screening tests do I need? How do I get my test results? What do my results mean? Do I need treatment? Where to find more information [employer] [place] [employer]: www.cancer.org [employer] [employer]: www.auanet.org Contact a health care provider if: You have difficulty urinating. You have pain when you urinate or ejaculate. You have blood in your urine or semen. You have pain in your back or in the area of your prostate. Summary Prostate cancer is a common type of cancer in men. The prostate gland is located below the bladder and in front of the rectum. This gland adds fluid to semen during ejaculation. Prostate cancer screening may identify cancer at an early stage, when the cancer can be treated more easily and is less likely to have spread to other areas of the body. The prostate-specific antigen (PSA) test is the recommended screening test for prostate cancer, but it has associated risks. Discuss the risks and benefits of prostate cancer screening with your health care provider. If you are age 70 or older, the risks that screening can cause are greater than the benefits that it may provide. This information is not intended to replace advice given to you by your health care provider. Make sure you discuss any questions you have with your health care provider. Document Revised: 01/15/2022 Document Reviewed: 01/15/2022 [employer] Patient Education 2022 [employer]. Follow Up Care 03/25/2023 13:31:08 With:APURVA CALIX, Domenico Haywood, URL Address: [address] [place], [place] [id number]- When: Unknown Comments:Sched Cysto w/Laser prostatic stones [facility] 04-24-2023 Hospital Discharge instructions Patient Education 04/24/2023 14:31:49 Dietary Guidelines to Help Prevent Kidney Stones Dietary Guidelines to Help Prevent Kidney Stones Kidney stones are deposits of minerals and salts that form inside your kidneys. Your risk of developing kidney stones may be greater depending on your diet, your lifestyle, the medicines you take, and whether you have certain medical conditions. Most people can lower their chances of developing kidney stones by following the instructions below. Your dietitian may give you more specific instructions depending on your overall health and the type of kidney stones you tend to develop. What are tips for following this plan? Reading food labels Choose foods with no salt added or low-salt labels. Limit your salt (sodium) intake to less than 1,500 mg a day. Choose foods with calcium for each meal and snack. Try to eat about 300 mg of calcium at each meal. Foods that contain 200 500 mg of calcium a serving include: ?8 oz (237 mL) of milk, fotxial-bubglzvyaibh-fnoal milk, and calcium-fortifiedfruit juice. Calcium-fortified means that calcium has been added to these drinks. ?8 oz (237 mL) of kefir, yogurt, and soy yogurt. ?4 oz (114 g) of tofu. ?1 oz (28 g) of cheese. ?1 cup (150 g) of dried figs. ?1 cup (91 g) of cooked broccoli. ?One 3 oz (85 g) can of sardines or mackerel. Most people need 1,000 1,500 mg of calcium a day. Talk to your dietitian about how much calcium is recommended for you. Shopping Buy plenty of fresh fruits and vegetables. Most people do not need to avoid fruits and vegetables, even if these foods contain nutrients that may contribute to kidney stones. When shopping for convenience foods, choose: ?Whole pieces of fruit. ?Pre-made salads with dressing on the side. ?Low-fat fruit and yogurt smoothies. Avoid buying frozen meals or prepared deli foods. These can be high in sodium. Look for foods with live cultures, such as yogurt and kefir. Choose high-fiber grains, such as whole-wheat breads, oat bran, and wheat cereals. Cooking Do not add salt to food when cooking. Place a salt shaker on the table and allow each person to add his or her own salt to taste. Use vegetable protein, such as beans, textured vegetable protein (TVP), or tofu, instead of meat in pasta, casseroles, and soups. Meal planning Eat less salt, if told by your dietitian. To do this: ?Avoid eating processed or pre-made food. ?Avoid eating fast food. Eat less animal protein, including cheese, meat, poultry, or fish, if told by your dietitian. To do this: ?Limit the number of times you have meat, poultry, fish, or cheese each week. Eat a diet free of meat at least 2 days a week. ?Eat only one serving each day of meat, poultry, fish, or seafood. ?When you prepare animal protein, cut pieces into small portion sizes. For most meat and fish, one serving is about the size of the palm of your hand. Eat at least five servings of fresh fruits and vegetables each day. To do this: ?Keep fruits and vegetables on hand for snacks. ?Eat one piece of fruit or a handful of berries with breakfast. ?Have a salad and fruit at lunch. ?Have two kinds of vegetables at dinner. Limit foods that are high in a substance called oxalate. These include: ?Spinach (cooked), rhubarb, beets, sweet potatoes, and [place] chard. ?Peanuts. ?Potato chips, mongolian fries, and baked potatoes with skin on. ?Nuts and nut products. ?Chocolate. If you regularly take a diuretic medicine, make sure to eat at least 1 or 2 servings of fruits or vegetables that are high in potassium each day. These include: ?Avocado. ?Banana. ?[place], prune, carrot, or tomato juice. ?Baked potato. ?Cabbage. ?Beans and split peas. Lifestyle Drink enough fluid to keep your urine pale yellow. This is the most important thing you can do. Spread your fluid intake throughout the day. If you drink alcohol: ?Limit how much you use to: ?0 1 drink a day for women who are not . ?0 2 drinks a day for men. ?Be aware of how much alcohol is in your drink. In the [place] one drink equals one 12 oz bottle of beer (355 mL), one 5 oz glass of wine (148 mL), or one 1 oz glass of hard liquor (44 mL). Lose weight if told by your health care provider. Work with your dietitian to find an eating plan and weight loss strategies that work best for you. General information Talk to your health care provider and dietitian about taking daily supplements. You may be told the following depending on your health and the cause of your kidney stones: ?Not to take supplements with vitamin C. ?To take a calcium supplement. ?To take a daily probiotic supplement. ?To take other supplements such as magnesium, fish oil, or vitamin B6. Take zmra-une-rhdwyko and prescription medicines only as told by your health care provider. These include supplements. What foods should I limit? Limit your intake of the following foods, or eat them as told by your dietitian. Vegetables Spinach. Rhubarb. Beets. Canned vegetables. Pickles. Olives. Baked potatoes with skin. Grains Wheat bran. Baked goods. Salted crackers. Cereals high in sugar. Meats and other proteins Nuts. Nut butters. Large portions of meat, poultry, or fish. Salted, precooked, or cured meats, such as sausages, meat loaves, and hot dogs. Dairy Cheese. Beverages Regular soft drinks. Regular vegetable juice. Seasonings and condiments Seasoning blends with salt. Salad dressings. Soy sauce. Ketchup. Barbecue sauce. Other foods Canned soups. Canned pasta sauce. Casseroles. Pizza. Lasagna. Frozen meals. Potato chips. [place]er fries. The items listed above may not be a complete list of foods and beverages you should limit. Contact a dietitian for more information. What foods should I avoid? Talk to your dietitian about specific foods you should avoid based on the type of kidney stones you have and your overall health. Fruits Grapefruit. The item listed above may not be a complete list of foods and beverages you should avoid. Contact a dietitian for more information. Summary Kidney stones are deposits of minerals and salts that form inside your kidneys. You can lower your risk of kidney stones by making changes to your diet. The most important thing you can do is drink enough fluid. Drink enough fluid to keep your urine pale yellow. Talk to your dietitian about how much calcium you should have each day, and eat less salt and animal protein as told by your dietitian. This information is not intended to replace advice given to you by your health care provider. Make sure you discuss any questions you have with your health care provider. Document Revised: 04/02/2022 Document Reviewed: 04/02/2022 [employer] Patient Education 2022 [employer]. Follow Up Care 04/24/2023 12:33:05 With:ESMER MENDOZA PA-C, URL Address: [address] [place] [address] When: Unknown Comments:Chap[place] osorio/ERIN [facility] 03-12-2023 Hospital Discharge instructions Patient Education 03/12/2023 11:19:15 Dietary Guidelines to Help Prevent Kidney Stones Dietary Guidelines to Help Prevent Kidney Stones Kidney stones are deposits of minerals and salts that form inside your kidneys. Your risk of developing kidney stones may be greater depending on your diet, your lifestyle, the medicines you take, and whether you have certain medical conditions. Most people can lower their chances of developing kidney stones by following the instructions below. Your dietitian may give you more specific instructions depending on your overall health and the type of kidney stones you tend to develop. What are tips for following this plan? Reading food labels Choose foods with no salt added or low-salt labels. Limit your salt (sodium) intake to less than 1,500 mg a day. Choose foods with calcium for each meal and snack. Try to eat about 300 mg of calcium at each meal. Foods that contain 200 500 mg of calcium a serving include: ?8 oz (237 mL) of milk, ulixtmj-ienutxhkioek-lpwrz milk, and calcium-fortifiedfruit juice. Calcium-fortified means that calcium has been added to these drinks. ?8 oz (237 mL) of kefir, yogurt, and soy yogurt. ?4 oz (114 g) of tofu. ?1 oz (28 g) of cheese. ?1 cup (150 g) of dried figs. ?1 cup (91 g) of cooked broccoli. ?One 3 oz (85 g) can of sardines or mackerel. Most people need 1,000 1,500 mg of calcium a day. Talk to your dietitian about how much calcium is recommended for you. Shopping Buy plenty of fresh fruits and vegetables. Most people do not need to avoid fruits and vegetables, even if these foods contain nutrients that may contribute to kidney stones. When shopping for convenience foods, choose: ?Whole pieces of fruit. ?Pre-made salads with dressing on the side. ?Low-fat fruit and yogurt smoothies. Avoid buying frozen meals or prepared deli foods. These can be high in sodium. Look for foods with live cultures, such as yogurt and kefir. Choose high-fiber grains, such as whole-wheat breads, oat bran, and wheat cereals. Cooking Do not add salt to food when cooking. Place a salt shaker on the table and allow each person to add his or her own salt to taste. Use vegetable protein, such as beans, textured vegetable protein (TVP), or tofu, instead of meat in pasta, casseroles, and soups. Meal planning Eat less salt, if told by your dietitian. To do this: ?Avoid eating processed or pre-made food. ?Avoid eating fast food. Eat less animal protein, including cheese, meat, poultry, or fish, if told by your dietitian. To do this: ?Limit the number of times you have meat, poultry, fish, or cheese each week. Eat a diet free of meat at least 2 days a week. ?Eat only one serving each day of meat, poultry, fish, or seafood. ?When you prepare animal protein, cut pieces into small portion sizes. For most meat and fish, one serving is about the size of the palm of your hand. Eat at least five servings of fresh fruits and vegetables each day. To do this: ?Keep fruits and vegetables on hand for snacks. ?Eat one piece of fruit or a handful of berries with breakfast. ?Have a salad and fruit at lunch. ?Have two kinds of vegetables at dinner. Limit foods that are high in a substance called oxalate. These include: ?Spinach (cooked), rhubarb, beets, sweet potatoes, and [place] chard. ?Peanuts. ?Potato chips, mongolian fries, and baked potatoes with skin on. ?Nuts and nut products. ?Chocolate. If you regularly take a diuretic medicine, make sure to eat at least 1 or 2 servings of fruits or vegetables that are high in potassium each day. These include: ?Avocado. ?Banana. ?[place], prune, carrot, or tomato juice. ?Baked potato. ?Cabbage. ?Beans and split peas. Lifestyle Drink enough fluid to keep your urine pale yellow. This is the most important thing you can do. Spread your fluid intake throughout the day. If you drink alcohol: ?Limit how much you use to: ?0 1 drink a day for women who are not . ?0 2 drinks a day for men. ?Be aware of how much alcohol is in your drink. In the [place] one drink equals one 12 oz bottle of beer (355 mL), one 5 oz glass of wine (148 mL), or one 1 oz glass of hard liquor (44 mL). Lose weight if told by your health care provider. Work with your dietitian to find an eating plan and weight loss strategies that work best for you. General information Talk to your health care provider and dietitian about taking daily supplements. You may be told the following depending on your health and the cause of your kidney stones: ?Not to take supplements with vitamin C. ?To take a calcium supplement. ?To take a daily probiotic supplement. ?To take other supplements such as magnesium, fish oil, or vitamin B6. Take zfbb-wvq-vwmbfyd and prescription medicines only as told by your health care provider. These include supplements. What foods should I limit? Limit your intake of the following foods, or eat them as told by your dietitian. Vegetables Spinach. Rhubarb. Beets. Canned vegetables. Pickles. Olives. Baked potatoes with skin. Grains Wheat bran. Baked goods. Salted crackers. Cereals high in sugar. Meats and other proteins Nuts. Nut butters. Large portions of meat, poultry, or fish. Salted, precooked, or cured meats, such as sausages, meat loaves, and hot dogs. Dairy Cheese. Beverages Regular soft drinks. Regular vegetable juice. Seasonings and condiments Seasoning blends with salt. Salad dressings. Soy sauce. Ketchup. Barbecue sauce. Other foods Canned soups. Canned pasta sauce. Casseroles. Pizza. Lasagna. Frozen meals. Potato chips. [place]er fries. The items listed above may not be a complete list of foods and beverages you should limit. Contact a dietitian for more information. What foods should I avoid? Talk to your dietitian about specific foods you should avoid based on the type of kidney stones you have and your overall health. Fruits Grapefruit. The item listed above may not be a complete list of foods and beverages you should avoid. Contact a dietitian for more information. Summary Kidney stones are deposits of minerals and salts that form inside your kidneys. You can lower your risk of kidney stones by making changes to your diet. The most important thing you can do is drink enough fluid. Drink enough fluid to keep your urine pale yellow. Talk to your dietitian about how much calcium you should have each day, and eat less salt and animal protein as told by your dietitian. This information is not intended to replace advice given to you by your health care provider. Make sure you discuss any questions you have with your health care provider. Document Revised: 04/02/2022 Document Reviewed: 04/02/2022 [employer] Patient Education 2022 [employer]. Follow Up Care 02/26/2023 13:39:38 With:ESMER MENDOZA PA-C, URL Address: [address] [facility] [place] [address] When: Unknown Comments:sched cysto w/ [facility] 11-21-2022 Note HNO ID: [id number] Author: Marko Garcia MD Service: ? Author Type: Physician Type: Progress Notes Filed: 11/28/2022 1:50 PM Note Text: Radiation Oncology - Follow Up Note PATIENT NAME: Padmini Lloyd PATIENT DIAGNOSIS: 1. Prostate adenocarcinoma, initial PSA 4.66, biopsy [place] score 3 + 3 = 6 (grade group 1), clinical stage T1c N0 M0 , s/p I-125 prostate seed implant on 11/28/16. 2. 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 Denies any significant new issues or problems. 11/16/21:Doing much better. Had COVID infection earlier this year with significant pulmonary compromise nearly on the ventilator. Has been recuperating well. Recently stopped needing supplemental O2. Denies chest pain. Denies fever chills night sweats. Denies visual change. 10/13/21:Doing well. Vision intact. No diplopia. No significant headache or other changes. Recent ophthalmology exam unremarkable other than some mild posttreatment changes. 03/02/2021:Doing well. Patient has been good. He has had some matting of the left eye in the morning, this is nearly resolved with eyedrops. Denies any pain or headache. No fever or chills. Is very active. RADIOLOGY: MRI orbit 11/15/2022: Since 05/07/2022 the ill-defined subtly enhancing curvilinear soft tissue in the superior left orbit has substantially decreased in size and degree of enhancement. No new intraorbital abnormality. MRI orbit with and without contrast 05/07/2022: Minimal curvilinear enhancing soft tissue superior left orbit stable from November 2021 exam. Markedly improved from October 2020 exam. MRI orbit with and without contrast 11/13/2021: Ill-defined faintly enhancing curvilinear soft tissue superior left orbit similar to slightly decreased in size compared with May scan. Degree of enhancement less pronounced. No other findings. PET/CT 05/11/2021,1. NECK: * No new FDG avid neoplastic process. Interval decreased size in FDG avidity of infiltrative left orbital lesion. Residual left orbital fat stranding demonstrated FDG activity below the blood pool background. Deauville score: 2 2. CHEST: * No FDG avid neoplastic process. Unchanged pleural-based right lower lobe opacity without significant FDG avidity, compatible with scarring/atelectasis. 3. ABDOMEN/PELVIS: * No FDG avid neoplastic process. 4. EXTREMITIES/SKELETON: * No suspicious FDG avid osseous lesion. MRI orbit 05/08/2021, moderate interval improvement. Thin rind of abnormal tissue along superior aspect of left orbit. LABORATORY: PSA 11/15/2022 less than 0.13 PSA (ng/mL) Date Value 08/21/2022 0.02 11/13/2021 0.03 06/21/2021 <0.1 07/18/2020 0.11 07/15/2019 0.21 01/21/2019 0.45 ALLERGIES: ALLERGIES Allergen Reactions Avelox [Moxifloxaci* Mental Status Change Bactrim [Sulfametho* Mental Status Change, Other: See Comments Renal Failure Quinolones Other: See Comments Confusion Sulfa (Sulfonamide * Other: See Comments Abdomin pain MEDICATIONS: Zinc 50 mg tab Take by mouth. Magnesium 250 mg tab Take 250 mg by mouth. losartan (COZAAR) 100 mg tablet Take 100 mg by mouth once daily. cyanocobalamin (VITAMIN B-12) 1,000 mcg tab Take 1,000 mcg by mouth two times a week. warfarin sodium (WARFARIN ORAL) Take by mouth daily as directed. As Directed ergocalciferol, vitamin D2, (VITAMIN D2 ORAL) Take by mouth. Multivitamin capsule Take 1 capsule by mouth once daily. REVIEW OF SYSTEMS NECK: Negative for lumps, goiter, pain and significant neck swelling RESPIRATORY: Negative for cough, hemoptysis, wheezing, COPD, dyspnea or shortness of breath MUSCULOSKELETAL: Negative for joint pain or swelling, back pain or muscle pain SKIN: Negative for lesions, rash, and itching NEURO: No history of headaches, syncope, paralysis, seizures or tremors PHYSICAL EXAM: BP 163/89 Pulse 87 Temp 36.4 ?C (97.6 ?F) Resp 16 Wt 109.3 kg (241 lb) SpO2 97% BMI 35.86 kg/m? KPS: 100 General Appearance: Well appearing, alert, in no acute distress, well-hydrated, well nourished.. Skin: Skin color, texture, turgor normal, no suspicious rashes or lesions. Eyes: No obvious scleral lesions. No exophthalmos Extraocular movements intact. Neck: No adenopathy or masses notable Abdomen: Soft nontender without sign annoyingly Lymph nodes: No neck supraclavicular or axillary lymphadenopathy ASSESSMENT/PLAN: 1. Prostate adenocarcinoma, initial PSA 4.66, biopsy [place] score 3 + 3 = 6 (grade group 1), clinical stage T1c N0 M0 , s/p I-125 prostate seed implant on 11/28/16. Doing well stable low PSA. Continue PSA surveillance 2. 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 Continue surveillance with MRI (more content not included)... Select [facility] 11-21-2022 History of Present illness Narrative Images from the original note were not included. Radiation Oncology - Follow Up Note PATIENT NAME: Padmini Lloyd PATIENT DIAGNOSIS: 1. Prostate adenocarcinoma, initial PSA 4.66, biopsy San [place] score 3 + 3 = 6 (grade group 1), clinical stage T1c N0 M0 , s/p I-125 prostate seed implant on 11/28/16. 2. 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 Denies any significant new issues or problems. 11/16/21:Doing much better. Had COVID infection earlier this year with significant pulmonary compromise nearly on the ventilator. Has been recuperating well. Recently stopped needing supplemental O2. Denies chest pain. Denies fever chills night sweats. Denies visual change. 05/17/21:Doing well. Vision intact. No diplopia. No significant headache or other changes. Recent ophthalmology exam unremarkable other than some mild posttreatment changes. 03/02/2021:Doing well. Patient has been good. He has had some matting of the left eye in the morning, this is nearly resolved with eyedrops. Denies any pain or headache. No fever or chills. Is very active. RADIOLOGY: MRI orbit 11/15/2022: Since 05/07/2022 the ill-defined subtly enhancing curvilinear soft tissue in the superior left orbit has substantially decreased in size and degree of enhancement. No new intraorbital abnormality. MRI orbit with and without contrast 05/07/2022: Minimal curvilinear enhancing soft tissue superior left orbit stable from November 2021 exam. Markedly improved from October 2020 exam. MRI orbit with and without contrast 11/13/2021: Ill-defined faintly enhancing curvilinear soft tissue superior left orbit similar to slightly decreased in size compared with May scan. Degree of enhancement less pronounced. No other findings. PET/CT 05/11/2021,1. NECK: * No new FDG avid neoplastic process. Interval decreased size in FDG avidity of infiltrative left orbital lesion. Residual left orbital fat stranding demonstrated FDG activity below the blood pool background. Deauville score: 2 2. CHEST: * No FDG avid neoplastic process. Unchanged pleural-based right lower lobe opacity without significant FDG avidity, compatible with scarring/atelectasis. 3. ABDOMEN/PELVIS: * No FDG avid neoplastic process. 4. EXTREMITIES/SKELETON: * No suspicious FDG avid osseous lesion. MRI orbit 05/08/2021, moderate interval improvement. Thin rind of abnormal tissue along superior aspect of left orbit. LABORATORY: PSA 11/15/2022 less than 0.13 PSA (ng/mL) Date Value 08/21/2022 0.02 11/13/2021 0.03 06/21/2021 <0.1 07/18/2020 0.11 07/15/2019 0.21 01/21/2019 0.45 ALLERGIES: ALLERGIES Allergen Reactions Avelox [Moxifloxaci* Mental Status Change Bactrim [Sulfametho* Mental Status Change, Other: See Comments Renal Failure Quinolones Other: See Comments Confusion Sulfa (Sulfonamide * Other: See Comments Abdomin pain MEDICATIONS: Zinc 50 mg tab Take by mouth. Magnesium 250 mg tab Take 250 mg by mouth. losartan (COZAAR) 100 mg tablet Take 100 mg by mouth once daily. cyanocobalamin (VITAMIN B-12) 1,000 mcg tab Take 1,000 mcg by mouth two times a week. warfarin sodium (WARFARIN ORAL) Take by mouth daily as directed. As Directed ergocalciferol, vitamin D2, (VITAMIN D2 ORAL) Take by mouth. Multivitamin capsule Take 1 capsule by mouth once daily. REVIEW OF SYSTEMS NECK: Negative for lumps, goiter, pain and significant neck swelling RESPIRATORY: Negative for cough, hemoptysis, wheezing, COPD, dyspnea or shortness of breath MUSCULOSKELETAL: Negative for joint pain or swelling, back pain or muscle pain SKIN: Negative for lesions, rash, and itching NEURO: No history of headaches, syncope, paralysis, seizures or tremors PHYSICAL EXAM: BP 163/89 Pulse 87 Temp 36.4 C (97.6 F) Resp 16 Wt 109.3 kg (241 lb) SpO2 97% BMI 35.86 kg/m KPS: 100 General Appearance: Well appearing, alert, in no acute distress, well-hydrated, well nourished.. Skin: Skin color, texture, turgor normal, no suspicious rashes or lesions. Eyes: No obvious scleral lesions. No exophthalmos Extraocular movements intact. Neck: No adenopathy or masses notable Abdomen: Soft nontender without sign annoyingly Lymph nodes: No neck supraclavicular or axillary lymphadenopathy ASSESSMENT/PLAN: 1. Prostate adenocarcinoma, initial PSA 4.66, biopsy San [place] score 3 + 3 = 6 (grade group 1), clinical stage T1c N0 M0 , s/p I-125 prostate seed implant on 11/28/16. Doing well stable low PSA. Continue PSA surveillance 2. 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 Continue surveillance with MRI in 1 year. 3. Right lung nodule likely benign. PET scan in 05/25 showing stability of the lesion without uptake consistent with benign nodule. No further testing necessary. Signed by: Marko Garcia MD cc: MD Dr. Chance Crowley MD documented in this encounter [facility] 11-14-2022 Miscellaneous Notes Orders were faxed on 11/13. Yael Matson RN [facility] requesting Creat order for MRI. Please review and sign. We will fax to [phone]. Yael Matson RN documented in this encounter [facility] 08-28-2022 Hospital Discharge instructions Patient Education 08/28/2022 13:31:38 Urodynamic Testing Urodynamic Testing What is urodynamic testing? Urodynamic tests are done to determine how well your lower urinary tract is working. The lower urinary tract includes your bladder and the part of your body that drains urine from the bladder (urethra). When your kidneys filter your blood, urine is stored in your bladder until you feel the urge to urinate. Urination requires coordination between the nerves and muscles of your bladder and urethra. When your lower urinary tract is working well, you should be able to: Start urinating when your bladder is full. Empty your bladder completely. Control the flow of your urine. Why do I need urodynamic testing? You may need urodynamic testing to help find the cause of any of these problems: Leaking urine (incontinence). Problems starting or stopping your urine flow. Frequent or painful urination. Frequent urinary tract infections. Being unable to empty your bladder completely. Having strong urges to pass urine (urgency). Having a weak flow of urine. How do I prepare for the tests? Ask your health care provider about changing or stopping your regular medicines. This is especially important if you are taking diabetes medicines or blood thinners. You may be asked to avoid urinating before coming to the test so that you arrive with a full bladder. Tell a health care provider about: ?Any allergies you have. ?All medicines you are taking, including vitamins, herbs, eye drops, creams, and nify-nks-exfeaag medicines. ?Whether you are or may be . What are the risks of this testing? Generally, these tests are safe. However, some of the tests have risks, including: Discomfort. Frequent urge to urinate. Bleeding. Infection. Allergic reactions to medicines or dyes (contrast material). How is urodynamic testing done? You may have various urodynamic tests. The tests may be done separately or may all be done during one testing visit. You may be given an antibiotic medicine before or after testing to help prevent infection. The types of tests that may be done include: Uroflowmetry This test measures how much urine you pass and how long it takes to pass. You will urinate into a certain type of toilet or device (flowmeter). The device will measure the volume and the time of your urine flow. These measurements will be sent to a computer that creates a graph of your urine flow. Postvoid residual measurement This test measures how much urine is left in your bladder after you urinate. The test may be done with ultrasound. In this method, sound waves and a computer will be used to create an image of your bladder. The test can also be done by inserting a thin, flexible tube (catheter) into your bladder after you urinate. The remaining urine will be removed through the catheter so it can be measured. Remaining urine will be measured in milliliters (mL). If you have more than 100 mL left in your bladder after you urinate, your bladder is not emptying as it should. Cystometric testing This test uses a type of bladder catheter that can measure pressure. You may be given a medicine to numb the area (local anesthetic). The area around the opening of your urethra will be cleaned. A urinary catheter will be passed through your urethra into your bladder and used to empty your bladder completely. Then a measuring catheter will be placed, and your bladder will be filled with warm, germ-free (sterile) water. Pressure measurements will be taken: ?As your bladder fills. ?When you feel the need to urinate. ?As your bladder is emptied. You may be asked to cough or bear down to check for leakage. In some cases, your bladder may be filled with a material that shows up on X-rays (contrast material) so that X-ray pictures can be taken during the test. Electromyogram This test measures the electrical activity of the nerves and muscles of your bladder and the opening of your urethra. Sticky patches (electrodes) will be placed near your rectum and urethra to measure electrical activity. The measurements will show how well your nerves are communicating with your muscles. What happens after the testing? You should be able to go home right away and do your usual activities. You may be told to drink a glass of water every 30 minutes for the first 2 hours after testing. Taking a warm bath or using warm, wet cloths (warm compresses) may relieve any discomfort near your urethra. Contact your health care provider if you have: ?Pain. ?Blood in your urine. ?Chills. ?Fever. What do the results mean? Talk with your health care provider about what your results mean. Some common causes for abnormal results from urodynamic tests include: Enlarged prostate in men. Overactive bladder. Urinary tract infection. Nervous system diseases. Spinal cord damage. Questions to ask your health care provider Ask your health care provider, or the department that is doing the test: When will my results be ready? How will I get my results? What are my treatment options? What other tests do I need? What are my next steps? Summary Urodynamic tests are done to determine how well your lower urinary tract is working. The lower urinary tract includes your bladder and urethra. You may need urodynamic testing to help find the cause of various problems with urination, such as leaking urine (incontinence) or problems starting or stopping your urine flow. You may have various urodynamic tests. The tests may be done separately or may all be done during one testing visit. Talk with your health care provider about what your results mean. Contact your health care provider if you have pain, chills, a fever, or blood in your urine. This information is not intended to replace advice given to you by your health care provider. Make sure you discuss any questions you have with your health care provider. Document Released: 05/18/2008 Document Revised: 11/10/2019 Document Reviewed: 05/26/2018 [employer] Patient Education 2020 [employer]. Follow Up Care 08/01/2021 10:21:29 With:Michael Osullivan MD, Althea Mcginnis, URO Address: [facility] [address], [place] [address]- When: Unknown [facility]16-[facility] History of Present illness Narrative Images from the original note were not included. Radiation Oncology - Follow Up Note PATIENT NAME: Padmini Lloyd PATIENT DIAGNOSIS: 1. Prostate adenocarcinoma, initial PSA 4.66, biopsy San [place] score 3 + 3 = 6 (grade group 1), clinical stage T1c N0 M0 , s/p I-125 prostate seed implant on 11/28/16. 2. 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 Recent kidney stone, no other new issues. 11/16/21:Doing much better. Had COVID infection earlier this year with significant pulmonary compromise nearly on the ventilator. Has been recuperating well. Recently stopped needing supplemental O2. Denies chest pain. Denies fever chills night sweats. Denies visual change. 05/17/21:Doing well. Vision intact. No diplopia. No significant headache or other changes. Recent ophthalmology exam unremarkable other than some mild posttreatment changes. 03/02/2021:Doing well. Patient has been good. He has had some matting of the left eye in the morning, this is nearly resolved with eyedrops. Denies any pain or headache. No fever or chills. Is very active. RADIOLOGY: MRI orbit with and without contrast 05/07/2022: Minimal curvilinear enhancing soft tissue superior left orbit stable from November 2021 exam. Markedly improved from October 2020 exam. MRI orbit with and without contrast 11/13/2021: Ill-defined faintly enhancing curvilinear soft tissue superior left orbit similar to slightly decreased in size compared with May scan. Degree of enhancement less pronounced. No other findings. PET/CT 05/11/2021,1. NECK: * No new FDG avid neoplastic process. Interval decreased size in FDG avidity of infiltrative left orbital lesion. Residual left orbital fat stranding demonstrated FDG activity below the blood pool background. Deauville score: 2 2. CHEST: * No FDG avid neoplastic process. Unchanged pleural-based right lower lobe opacity without significant FDG avidity, compatible with scarring/atelectasis. 3. ABDOMEN/PELVIS: * No FDG avid neoplastic process. 4. EXTREMITIES/SKELETON: * No suspicious FDG avid osseous lesion. MRI orbit 05/08/2021, moderate interval improvement. Thin rind of abnormal tissue along superior aspect of left orbit. LABORATORY: PSA (ng/mL) Date Value 11/13/2021 0.03 06/21/2021 <0.1 07/18/2020 0.11 07/15/2019 0.21 01/21/2019 0.45 ALLERGIES: ALLERGIES Allergen Reactions Avelox [Moxifloxaci* Mental Status Change Bactrim [Sulfametho* Mental Status Change, Other: See Comments Renal Failure Quinolones Other: See Comments Confusion Sulfa (Sulfonamide * Other: See Comments Abdomin pain MEDICATIONS: CRANBERRY two times a week. losartan (COZAAR) 100 mg tablet Take 100 mg by mouth once daily. cyanocobalamin (VITAMIN B-12) 1,000 mcg tab Take 1,000 mcg by mouth two times a week. warfarin sodium (WARFARIN ORAL) Take by mouth daily as directed. As Directed ergocalciferol, vitamin D2, (VITAMIN D2 ORAL) Take by mouth. Multivitamin capsule Take 1 capsule by mouth once daily. REVIEW OF SYSTEMS NECK: Negative for lumps, goiter, pain and significant neck swelling RESPIRATORY: Negative for cough, hemoptysis, wheezing, COPD, dyspnea or shortness of breath MUSCULOSKELETAL: Negative for joint pain or swelling, back pain or muscle pain SKIN: Negative for lesions, rash, and itching NEURO: No history of headaches, syncope, paralysis, seizures or tremors PHYSICAL EXAM: BP 155/76 Temp 36.2 C (97.2 F) Resp 16 Wt 106.6 kg (235 lb) SpO2 94% BMI 34.97 kg/m KPS: 100 General Appearance: Well appearing, alert, in no acute distress, well-hydrated, well nourished.. Skin: Skin color, texture, turgor normal, no suspicious rashes or lesions. Eyes: No obvious scleral lesions. No exophthalmos Extraocular movements intact. Neck: No adenopathy or masses notable Abdomen: Soft nontender without sign annoyingly Lymph nodes: No neck supraclavicular or axillary lymphadenopathy ASSESSMENT/PLAN: 1. Prostate adenocarcinoma, initial PSA 4.66, biopsy [place] score 3 + 3 = 6 (grade group 1), clinical stage T1c N0 M0 , s/p I-125 prostate seed implant on 11/28/16. Doing well stable low PSA. Continue PSA surveillance 2. 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 Continue surveillance with MRI in 6 months. 3. Right lung nodule likely benign. PET scan in fall showing stability of the lesion without uptake consistent with benign nodule. No further testing necessary. Signed by: Marko Garcia MD cc: MD Dr. Chance Crowley MD documented in this encounter [facility] 05-03-2022 Miscellaneous Notes Orders faxed to [facility]. Yael Matson RN [facility] called requesting order for Creatinine and Xray orbits prior to MRI. Please sign if agreeable and we will fax to [place]. Yael Matson RN documented in this encounter [facility] 02-08-2022 Hospital Discharge instructions Patient Education 02/08/2022 09:57:25 [facility] - Cystoscopy with Urethral Dilation Discharge Instructions (Custom) Cystoscopy with Urethral Dilation Voiding after the procedure: there may be some pain, urethral bleeding, burning, urgency, frequency and blood tinged urine following the procedure. These symptoms usually resolve within 2-5 days. Drink the amount of fluid it takes to keep the urine pink to yellow or clear in color. Drinking enough water and fluids will help to ease any discomfort after your procedure. If you are having problems that seem out of the ordinary, please call. If unable to contact your physician and you feel it is an emergency, go to the nearest emergency room or call 911 Diet you may resume your normal diet. Activity you may resume your normal activities Call if you have a fever over 100 degrees Follow Up Care 01/17/2022 11:11:38 With:Althea Rodriguez Address: [facility] [address] [place] [address]- Business (1) When:6 weeks Comments:PVR with next office visit. [facility] 01-16-2022 Hospital Discharge instructions Patient Education 01/16/2022 12:31:13 Hematuria, Adult Hematuria, Adult Hematuria is blood in the urine. Blood may be visible in the urine, or it may be identified with a test. This condition can be caused by infections of the bladder, urethra, kidney, or prostate. Other possible causes include: Kidney stones. Cancer of the urinary tract. Too much calcium in the urine. Conditions that are passed from parent to child (inherited conditions). Exercise that requires a lot of energy. Infections can usually be treated with medicine, and a kidney stone usually will pass through your urine. If neither of these is the cause of your hematuria, more tests may be needed to identify the cause of your symptoms. It is very important to tell your health care provider about any blood in your urine, even if it is painless or the blood stops without treatment. Blood in the urine, when it happens and then stops and then happens again, can be a symptom of a very serious condition, including cancer. There is no pain in the initial stages of many urinary cancers. Follow these instructions at home: Medicines Take [id number] and prescription medicines only as told by your health care provider. If you were prescribed an antibiotic medicine, take it as told by your health care provider. Do not stop taking the antibiotic even if you start to feel better. Eating and drinking Drink enough fluid to keep your urine clear or pale yellow. It is recommended that you drink 3 4 quarts (2.8 3.8 L) a day. If you have been diagnosed with an infection, it is recommended that you drink cranberry juice in addition to large amounts of water. Avoid caffeine, tea, and carbonated beverages. These tend to irritate the bladder. Avoid alcohol because it may irritate the prostate (men). General instructions If you have been diagnosed with a kidney stone, follow your health care provider's instructions about straining your urine to catch the stone. Empty your bladder often. Avoid holding urine for long periods of time. If you are female: ?After a bowel movement, wipe from front to back and use each piece of toilet paper only once. ?Empty your bladder before and after sex. Pay attention to any changes in your symptoms. Tell your health care provider about any changes or any new symptoms. It is your responsibility to get your test results. Ask your health care provider, or the department performing the test, when your results will be ready. Keep all follow-up visits as told by your health care provider. This is important. Contact a health care provider if: You develop back pain. You have a fever. You have nausea or vomiting. Your symptoms do not improve after 3 days. Your symptoms get worse. Get help right away if: You develop severe vomiting and are unable take medicine without vomiting. You develop severe pain in your back or abdomen even though you are taking medicine. You pass a large amount of blood in your urine. You pass blood clots in your urine. You feel very weak or like you might faint. You faint. Summary Hematuria is blood in the urine. It has many possible causes. It is very important that you tell your health care provider about any blood in your urine, even if it is painless or the blood stops without treatment. Take [id number] and prescription medicines only as told by your health care provider. Drink enough fluid to keep your urine clear or pale yellow. This information is not intended to replace advice given to you by your health care provider. Make sure you discuss any questions you have with your health care provider. Document Released: 07/22/2006 Document Revised: 12/16/2019 Document Reviewed: 08/24/2017 Elsevier Patient Education 2019 [employer] [facility] 11-16-2021 History of Present illness Narrative Images from the original note were not included. Radiation Oncology - Follow Up Note PATIENT NAME: Padmini Lloyd PATIENT DIAGNOSIS: 1. Prostate adenocarcinoma, initial PSA 4.66, biopsy [place] Angel score 3 + 3 = 6 (grade group 1), clinical stage T1c N0 M0 , s/p I-125 prostate seed implant on 11/28/16. 2. 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 Had COVID infection earlier this year with significant pulmonary compromise nearly on the ventilator. Has been recuperating well. Recently stopped needing supplemental O2. Denies chest pain. Denies fever chills night sweats. Denies visual change. 05/17/21:Doing well. Vision intact. No diplopia. No significant headache or other changes. Recent ophthalmology exam unremarkable other than some mild posttreatment changes. 03/02/2021:Doing well. Patient has been good. He has had some matting of the left eye in the morning, this is nearly resolved with eyedrops. Denies any pain or headache. No fever or chills. Is very active. RADIOLOGY: MRI orbit with and without contrast 11/13/2021: Ill-defined faintly enhancing curvilinear soft tissue superior left orbit similar to slightly decreased in size compared with May scan. Degree of enhancement less pronounced. No other findings. PET/CT 05/11/2021,1. NECK: * No new FDG avid neoplastic process. Interval decreased size in FDG avidity of infiltrative left orbital lesion. Residual left orbital fat stranding demonstrated FDG activity below the blood pool background. Deauville score: 2 2. CHEST: * No FDG avid neoplastic process. Unchanged pleural-based right lower lobe opacity without significant FDG avidity, compatible with scarring/atelectasis. 3. ABDOMEN/PELVIS: * No FDG avid neoplastic process. 4. EXTREMITIES/SKELETON: * No suspicious FDG avid osseous lesion. MRI orbit 05/08/2021, moderate interval improvement. Thin rind of abnormal tissue along superior aspect of left orbit. PSA (ng/mL) Date Value 11/13/2021 0.03 06/21/2021 <0.1 07/18/2020 0.11 07/15/2019 0.21 01/21/2019 0.45 ALLERGIES: ALLERGIES Allergen Reactions Avelox [Moxifloxaci* Mental Status Change Bactrim [Sulfametho* Mental Status Change, Other: See Comments Renal Failure Quinolones Other: See Comments Confusion Sulfa (Sulfonamide * Other: See Comments Abdomin pain MEDICATIONS: CRANBERRY two times a week. losartan (COZAAR) 100 mg tablet Take 100 mg by mouth once daily. cyanocobalamin (VITAMIN B-12) 1,000 mcg tab Take 1,000 mcg by mouth two times a week. warfarin sodium (WARFARIN ORAL) Take by mouth daily as directed. As Directed ergocalciferol, vitamin D2, (VITAMIN D2 ORAL) Take by mouth. Multivitamin capsule Take 1 capsule by mouth once daily. REVIEW OF SYSTEMS NECK: Negative for lumps, goiter, pain and significant neck swelling RESPIRATORY: Negative for cough, hemoptysis, wheezing, COPD, dyspnea or shortness of breath MUSCULOSKELETAL: Negative for joint pain or swelling, back pain or muscle pain SKIN: Negative for lesions, rash, and itching NEURO: No history of headaches, syncope, paralysis, seizures or tremors PHYSICAL EXAM: BP 166/75 Pulse 90 Temp 36.4 C (97.6 F) (Temporal) Resp 16 Wt 110 kg (242 lb 6.4 oz) SpO2 96% BMI 36.07 kg/m KPS: 100 General Appearance: Well appearing, alert, in no acute distress, well-hydrated, well nourished.. Skin: Skin color, texture, turgor normal, no suspicious rashes or lesions. Eyes: No obvious scleral lesions. No exophthalmos Extraocular movements intact. Neck: No adenopathy or masses notable Abdomen: Soft nontender without sign annoyingly Lymph nodes: No neck supraclavicular or axillary lymphadenopathy ASSESSMENT/PLAN: 1. Prostate adenocarcinoma, initial PSA 4.66, biopsy Miguel Angel score 3 + 3 = 6 (grade group 1), clinical stage T1c N0 M0 , s/p I-125 prostate seed implant on 11/28/16. Doing well stable low PSA. Continue PSA surveillance 2. 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 Continue surveillance with MRI in 6 months. 3. Right lung nodule likely benign. PET scan in fall showing stability of the lesion without uptake consistent with benign nodule. Signed by: Marko Garcia MD cc: MD Dr. Chance Crowley MD documented in this encounter [facility] 11-08-2021 Miscellaneous Notes Jose is due for a PSA prior to his upcoming follow up with Dr. Garcia 11/16/21. Please sign pended PSA order. Call transferred to Ang. Hui to schedule lab appt. Aashish Benoit LPN documented in this encounter [facility] Evaluation + Plan note Future Appointments Appointment Date:08/07/2022 09:15:00 AM Scheduled Provider:Althea Rodriguez Jr., MD Location:[facility] Appointment Type:URO Office Visit Diagnostic Tests PendingUrine Culture 12/29/21 [facility] Evaluation + Plan note Future Appointments Appointment Date:08/07/2022 09:15:00 AM Scheduled Provider:Althea Rodriguez Jr., MD Location:[facility] Appointment Type:URO Office Visit [facility] Evaluation + Plan note Future Appointments Appointment Date:08/07/2022 09:15:00 AM Scheduled Provider:Althea Rodriguez Jr., MD Location:[facility] Appointment Type:URO Office Visit Diagnostic Tests PendingUrine Culture 01/04/22 [facility] Evaluation + Plan note Future Appointments Appointment Date:08/07/2022 09:15:00 AM Scheduled Provider:Althea Rodriguez Jr., MD Location:[facility] Appointment Type:URO Office Visit Diagnostic Tests PendingUrine Culture 03/28/22 [facility] Evaluation + Plan note Future Appointments Appointment Date:09/03/2023 09:00:00 AM Scheduled Provider:ESMER MENDOZA PA-C Location:[facility] Appointment Type:URO Office Visit Diagnostic Tests PendingPSA Total 08/28/22 [facility] Evaluation + Plan note Future Appointments Appointment Date:09/03/2023 09:00:00 AM Scheduled Provider:ESMER MENDOZA PA-C [facility] App[facility] Type:URO Office Visit Diagnostic Tests PendingUrine Culture 08/28/22 [facility] Evaluation + Plan note Future Appointments Appointment Date:09/03/2023 09:00:00 AM Scheduled Provider:ESMER MENDOZA PA-C Location:[facility] Appointment Type:URO Office Visit [facility] Evaluation + Plan note Future Appointments Appointment Date:09/03/2023 09:00:00 AM Scheduled Provider:ESMER MENDOZA PA-C Location:[facility] Appointment Type:URO Office Visit Diagnostic Tests PendingUrine Culture 02/12/23 [facility] Evaluation + Plan note Future Appointments Appointment Date:04/29/2023 07:30:00 AM Scheduled Provider:Domenico GIPSON MD Location:[facility] Appointment Type:URO Procedure 15 min Appointment Date:09/03/2023 09:00:00 AM Scheduled Provider:ESMER MENDOZA PA-C [facility] Appoint[facility] Type:URO Office Visit [facility] Evaluation + Plan note Future Appointments Appointment Date:04/29/2023 07:30:00 AM Scheduled Provider:Domenico GIPSON MD Location:[facility] Appointment Type:URO Procedure 15 min Appointment Date:09/03/2023 09:00:00 AM Scheduled Provider:ESMER MENDOZA PA-C [facility] Appointment Type:URO Office Visit Diagnostic Tests PendingUrine Culture 04/24/23 [facility] Evaluation + Plan note Future Appointments Appointment Date:06/03/2023 11:15:00 AM Scheduled Provider:Domenico GIPSON MD Location:[facility] Appointment Type:URO Office Visit Appointment Date:09/03/2023 09:00:00 AM Scheduled Provider:ESMER MENDOZA PA-C Location:[facility] [place] Appointment Type:URO Office Visit [facility] Evaluation + Plan note Future Appointments Appointment Date:11/26/2023 08:00:00 AM Scheduled Provider:Domenico GIPSON MD Location:[facility] Appointment Type:URO Office Visit [facility] Evaluation + Plan note Future Appointments Appointment Date:11/14/2023 12:40:00 PM Scheduled Provider:ESMER MENDOZA PA-C Location:[facility] Appointment Type:URO Office Visit Appointment Date:11/26/2023 07:30:00 AM Scheduled Provider: [facility] Appointment Type:Surgery FT Diagnostic Tests PendingUrine Culture 11/11/23 [facility] Evaluation + Plan note Future Appointments Appointment Date:11/14/2023 12:40:00 PM Scheduled Provider:ESMER MENDOZA PA-C Location:[facility] Appointment Type:URO Office Visit Appointment Date:11/26/2023 07:30:00 AM Scheduled Provider: [facility] Appointment Type:Surgery FT [facility] Evaluation + Plan note Future Appointments Appointment Date:11/26/2023 07:30:00 AM Scheduled Provider: Location:[facility] Appointment Type:Surgery FT [facility] Evaluation + Plan note Future Appointments Appointment Date:11/26/2023 07:30:00 AM Scheduled Provider: Location:[facility] Appointment Type:Surgery FT Diagnostic Tests PendingUrine Culture 11/14/23 [facility] Evaluation note Diagnosis History of prostate cancer- Primary Personal history of malignant neoplasm of prostate [facility] [place] [facility] Diagnosis 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 neoplasm of orbit [facility] [place] [facility]* Diagnosis 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 neoplasm of orbit [facility] [place] [facility]* Diagnosis 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 neoplasm of orbit Malignant neoplasm of prostate (HCC) Malignant neoplasm of prostate documented in [facility] [place] [facility]* Diagnosis History of prostate cancer- Primary Personal history of malignant neoplasm of prostate documented in this encounter [facility] note* Diagnosis 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 neoplasm of orbit [facility] [place] [facility]* Diagnosis 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 neoplasm of orbit History of prostate cancer Personal history of malignant neoplasm of prostate Lung nodule Solitary pulmonary nodule documented in this encounter [facility] noteNo assessment information available[facility] Work Phone: Evaluation note* Diagnosis History of prostate cancer- Primary Personal history of malignant neoplasm of prostate 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) Hypercalcemia documented [facility] this encounter [facility] [place] [facility]* Diagnosis Hypercalcemia- Primary 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) Thoracic aortic ectasia (I77.810) Thoracic aortic ectasia Lumbar back pain with radiculopathy affecting left lower extremity Lumbar myelopathy (CMS/HCC) Atrophy of quadriceps femoris muscle Other idiopathic scoliosis, thoracolumbar region [facility] Primary hyperparathyroidism (CMS/HCC)- Primary Primary hyperparathyroidism Parathyroid abnormality (CMS/HCC) Hypercalcemia [facility] Pain of left hip- Primary documented in this encounter [facility] course Narrative No data available for this section [facility] Hospital Discharge instructions No data available for this section [facility] Hospital Discharge instructions Additional Instructions DISCHARGE INSTRUCTIONS FOR THYROIDECTOMY ACTIVITY -No lifting or straining. -No strenuous activity for 2 weeks. -Sleep with head elevated on two pillows. -May shower tomorrow. -You may shower and wash the incision with soap and water, but do not submerge the incision or allow prolonged exposure to water. Pat dry. -No driving for at least 5 days, or while taking prescription pain medicine. WOUND CARE/DRESSING -Be sure to keep your incision clean and dry. -There is a clear, glue-like adhesive on your incision. Do not peel or pick at this adhesive. It wall fall off on its own after a few days -Call the office if incision area appears to have any sign of infection, such as increased swelling, redness, or purulent drainage. -Watch for bleeding, swelling, difficulty breathing, difficulty swallowing. MEDICATION -If any prescriptions have been given to you, be sure to take as directed. OTHER Any problems- call the office or return to the Emergency Room. If you are having excessive or persistent pain, swelling, fever (oral temp >101), yellow-green foul smelling drainage or bleeding from incision, excessive redness of incision, nausea, vomiting, or any other problems, you should first call your surgeon for advice. If you are unable to contact your surgeon, seek help from a hospital emergency room. FOLLOW UP -Call the office to follow up in one week. -Get blood work drawn at [facility] [address] Cook.[facility] Work Phone: Progress note No data available for this section [facility] reason for referral (narrative)* Diagnostic Procedure Only (Routine) - Pending Review Specialty Diagnoses / Procedures Referred By Contac t Referred To Contact XR IMAGING Diagnoses Malignant neoplasm of left orbit (HCC) Procedures XR EYE FOREIGN BODY 2V RADIOLOGIC EXAMINATION EYE DETECT FOREIGN BODY Marko Garcia MD [address] [place] [address] [place] [address] Xr Imaging Referral ID Status Reason Start Date Expiration Date Visits Requested Visits Authorized [id number] Pending Review Auto-Generat ed Referral 05/03/2022 06/01/2023 1 1 [facility] Diagnostic Procedure Only (Routine) - Authorized Specialty Diagnoses / Procedures Referred By Chaka ibrahim Referred To Contact MOLECULAR & FUNCTIONAL IMAGING Diagnoses 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) Procedures NM PET/CT SKULL-THIGH SUBSEQUENT PET IMAGING CT ATTENUATION SKULL BASE MID-THIGH Marko Garcia MD [address] [place] [address] [place] [address] Molecular & Functional Imaging [address] [place] [address] Referral ID Status Reason Start Date Expiration Date Visits Requested Visits Authorized [id number] Authorized Auto-Generat ed Referral 09/05/2023 10/04/2024 1 1 [facility] Summary Purpose Family History No Family History Records Found Relationship Condition Age at Onset Recorded Date/T rosemary father History of heart surgery Unknown Malignant neoplasm of prostate Unknown brother Leukemia Unknown Not Specified Hypertension Unknown Relationship Condition Age at Onset Recorded Date/T rosemary father History of heart surgery Unknown Malignant neoplasm of prostate Unknown Malignant neoplasm of colon Unknown brother Leukemia Unknown Not Specified Hypertension Unknown Relationship Condition Age at Onset Recorded Date/T rosemary father History of heart surgery Unknown Malignant neoplasm of colon Unknown Malignant neoplasm of prostate Unknown Myocardial infarction Unknown brother Leukemia Unknown Not Specified Hypertension Unknown Advance Directives No Advanced Directives Records Found Advance Directive Response Recorded Date/ Time Advance Directives No November 22 1:13pm Documents on File Type Date Recorded Patient Dumper Expl anation Advance Directives and Living Will 11/30/2021 2021-11-23 Power Of Build And Deployment Engineer Advance Directives and Living Will 11/30/2021 2021-11-23 Living Wi ll Advance Directive Response Recorded Date/ Time Advance Directives No November 22 12:13pm Reason for Referral Specialty Diagnoses / Procedures Referred By Chaka ibrahim Referred To Contact MR IMAGING Diagnoses Malignant neoplasm of left orbit (HCC) Procedures MRI ORBIT WO/W IVCON MRI ORBIT FACE & NECK W/O & W/CONTRAST MATRL Marko Garcia MD [address] [place] [address] [place] [address] [facility] Referral ID Status Reason Start Date Expiration Date Visits Requested Visits Authorized [id number] Pending Review Auto-Generat ed Referral 11/16/2021 12/16/2022 1 1 Referral ID Status Reason Start Date Expiration Date Visits Requested Visits Authorized [id number] Pending Review Auto-Generat ed Referral 06/15/2023 1 1 Referral ID Status Reason Start Date Expiration Date Visits Requested Visits Authorized [id number] Pending Review Auto-Generat ed Referral 11/21/2022 12/21/2023 1 1 Specialty Diagnoses / Procedures Referred By Chaka ibrahim Referred To Contact MR IMAGING Diagnoses Pain of left hip Procedures MRI HIP WO/W IVCON LEFT MRI ANY JT LOWER EXTREM W/O & W/CONTRAST Marko Mittal MD [address] [place] [address] [place] [address] [place] [address] Referral ID Status Reason Start Date Expiration Date Visits Requested Visits Authorized [id number] Pending Review Auto-Generat ed Referral 09/18/2023 10/17/2024 1 1 Chief Complaint and Reason for Visit Chief Complaint Bladder Neck Contrac ture, Hx Prostate Cancer, Ambrosio Chief Complaint Bladder Neck Contrac ture, Hx Prostate Cancer, Ambrosio Bladder Neck Contracture, Hx Prostate Cancer, Ambrosio Chief Complaint E21.0 Chief Complaint 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 Chief Complaint 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 e21.0 Additional Source Comments (unrecognized sect ion and content) No Status Records FoundNo Status Records FoundNo Status Records FoundNo Status Records FoundNo Status Records FoundNo Status Records FoundNo Status Records Found INFORMATION SOURCE (unrecogn ized section and content) DATE CREATED AUTHOR 07/16/2019 [facility] DATE CREATED AUTHOR AUTHOR'S ORGANIZ ATION 12/22/2021 [facility] dical Specialist DATE CREATED AUTHOR AUTHOR'S ORGANIZ ATION 11/16/2022 [facility] DATE CREATED AUTHOR AUTHOR'S ORGANIZ ATION 11/01/2023 [facility] DATE CREATED AUTHOR AUTHOR'S ORGANIZ ATION 11/13/2023 [facility] dical [facility] DATE CREATED AUTHOR AUTHOR'S ORGANIZ ATION 11/13/2023 [facility] DATE CREATED AUTHOR AUTHOR'S ORGANIZ ATION 12/05/2023 Dashawn Cameron [facility] Source Comments (unrecognize d section and content) In the event this informatio n is protected by the Federal Confidentiality of Alcohol and Drug Abuse Patient Records regulations: The Federal rules restrict any use of the information to criminally investigate or prosecute any alcohol or drug abuse patient.[facility] the event this information is protected by the Federal Confidentiality of Alcohol and Drug Abuse Patient Records regulations: The Federal rules restrict any use of the information to criminally investigate or prosecute any alcohol or drug abuse patient.[facility] Hospital[facility] the event this information is protected by the Federal Confidentiality of Alcohol and Drug Abuse Patient Records regulations: The Federal rules restrict any use of the information to criminally investigate or prosecute any alcohol or drug abuse patient.[facility] Hospital[facility] the event this information is protected by the Federal Confidentiality of Alcohol and Drug Abuse Patient Records regulations: The Federal rules restrict any use of the information to criminally investigate or prosecute any alcohol or drug abuse patient.[facility] Hospital[facility] the event this information is protected by the Federal Confidentiality of Alcohol and Drug Abuse Patient Records regulations: The Federal rules restrict any use of the information to criminally investigate or prosecute any alcohol or drug abuse patient.[facility] Hospital[facility] the event this information is protected by the Federal Confidentiality of Alcohol and Drug Abuse Patient Records regulations: The Federal rules restrict any use of the information to criminally investigate or prosecute any alcohol or drug abuse patient.[facility] Hospital[facility] the event this information is protected by the Federal Confidentiality of Alcohol and Drug Abuse Patient Records regulations: The Federal rules restrict any use of the information to criminally investigate or prosecute any alcohol or drug abuse patient.[facility] Hospital[facility] the event this information is protected by the Federal Confidentiality of Alcohol and Drug Abuse Patient Records regulations: The Federal rules restrict any use of the information to criminally investigate or prosecute any alcohol or drug abuse patient.[facility] Hospital[facility] the event this information is protected by the Federal Confidentiality of Alcohol and Drug Abuse Patient Records regulations: The Federal rules restrict any use of the information to criminally investigate or prosecute any alcohol or drug abuse patient.[facility] Hospital[facility] the event this information is protected by the Federal Confidentiality of Alcohol and Drug Abuse Patient Records regulations: The Federal rules restrict any use of the information to criminally investigate or prosecute any alcohol or drug abuse patient.[facility] Reason for Visit (unrecogniz ed section and content) Reason Comments Orders Reason Comments Lymphoma FOLLOW UP Reason Comments Orders Reason Comments Lymphoma Reason Comments Lab Orders Reason Comments Prostate Cancer Lymphoma Reason Comments Leg Pain Reason Comments Hypercalcemia Specialty Diagnoses / Procedures Referred By Chaka t Referred To Contact Otolaryngology Diagnoses Parathyroid abnormality (CMS/HCC) Procedures DC OFFICE/OUTPATIENT NEW HIGH MDM 60 MINUTES Jarred Arias MD [address] [place] [address] Juan Cook, DO [address] [place] [address] Referral ID Status Reason Start Date Expiration Date V isits Requested Visits Authorized [id number] Closed Specialty Services Required 09/05/2023 03/03/2024 1 1 Reason Comments Prostate Cancer Reason Comments Appointment Confirmation Care Teams (unrecognized sec tion and content) Hosting Engineer Relationship Specialty Start Date End Date Jarred Arias [address] [place] [phone] (Fax) PCP - General Family Practice 10/23/16 Hosting Engineer Relationship Specialty Start Date End Date Jarred Arias [address] [facility] [place] [phone] (Fax) PCP - General Family Practice 10/23/16 Hosting Engineer Relationship Specialty Start Date End Date Jarred Arias MD [address] [place] [facility] [place] [address] (Fax) PCP - General Family Medicine 10/23/16 Hosting Engineer Relationship Specialty Start Date End Date Jarred Arias MD [address] [place] [address] (Fax) PCP - General Family Medicine 10/23/16 Hosting Engineer Relationship Specialty Start Date End Date Jarred Arias MD [address] [place] [address] (Fax) PCP - General Family Medicine 10/23/16 Hosting Engineer Relationship Specialty Start Date End Date Jarred Arias MD [address] [place] [facility] [place] [address] (Fax) PCP - General Family Medicine 10/23/16 Hosting Engineer Relationship Specialty Start Date End Date Jarred Arias MD [address] [place] [address] (Fax) PCP - General Family Medicine 10/23/16 Team Status: Active Member Role Status Dates Jarred Arias MD Primary Care Provider Active Team Status: Inactive Member Role Status Dates Domenico Gipson MD Attending Provider Active Jarred Arias MD Primary Care Provider Active Hosting Engineer Relationship Specialty Start Date End Date Jarred Arias MD [address] [facility] [place] [place] [address] (Fax) PCP - General Family Medicine 10/23/16 Hosting Engineer Relationship Specialty Start Date End Date Jarred Arias MD [address] [facility] [place] [address] (Fax) PCP - ACO Reach 12/27/22 Jarred Arias MD [address] [place] [address] (Fax) PCP - General Family Medicine 01/03/23 Kellie Odom LPN Licensed Practical Nurse Family Medicine 01/03/23 Hosting Engineer Relationship Specialty Start Date End Date Jarred Arias MD [address] [facility] [place] [address] (Fax) PCP - ACO Reach 12/27/22 Jarred Arias MD [address] [place] [address] (Fax) PCP - General Family Medicine 01/03/23 Kellie Odom LPN Licensed Practical Nurse Family Medicine 01/03/23 Team Status: Inactive Member Role Status Dates Jarred Arias MD Primary Care Provider Active Start: September 23, 2023 End: September 23, 2023 Juan Cook DO Attending Provider Active S tart: September 23, 2023 End: September 23, 2023 Hosting Engineer Relationship Specialty Start Date End Date Jarred Arias MD [address] [place] [address] PCP - General Family Medicine 10/23/16 Team Status: Inactive Member Role Status Dates Jarred Arias MD Primary Care Provider Active Start: October 11, 2023 End: October 11, 2023 Juan Cook DO Attending Provider Active S tart: October 11, 2023 End: October 11, 2023 Team Status: Inactive Member Role Status Dates Jarred Arias MD Primary Care Provider Active Start: October 22, 2023 End: October 22, 2023 Juan Cook DO Attending Provider Active S tart: October 22, 2023 End: October 22, 2023 Team Status: Inactive Member Role Status Dates Jarred Arias MD Primary Care Provider Active Start: October 29, 2023 End: October 29, 2023 Juan Cook DO Attending Provider Active S tart: October 29, 2023 End: October 29, 2023 Hosting Engineer Relationship Specialty Start Date End Date Jarred Arias MD [address] [place] [address] PCP - General Family Medicine 10/23/16 Goals (unrecognized section and content) Goals may be documented in a n alternate section FOR RECORDS PERTAINING TO PATIENTS WHO ARE OR HAVE BEEN ENROLLED IN A CHEMICAL DEPENDENCY/SUBSTANCEABUSE PROGRAM, SOME INFORMATION MAY BE OMITTED. This clinical summary was aggregated from multiple sources. Caution should be exercised in using it in the provision of clinical care. This summary normalizes information from multiple sources, and as a consequence, information in this document may materially change the coding, format and clinical context of patient data. In addition, data may be omitted in some cases. CLINICAL DECISIONS SHOULD BE BASED ON THE PRIMARY CLINICAL RECORDS. [employer] provides no warranty or guarantee of the accuracy or completeness of information in this document.
== END 2023-12-14 11:53 | disposition home or self-care (01) ==
LOC: LAB 11:55
PROVIDERS: PCP Family Medicine; Visit Provider Physician Assistant
DX: R31.0 Gross hematuria (principal)
CPT/HCPCS: 87086

== ENCOUNTER 2025-04-06 15:33 | Emergency (ER) | payer MEDICARE, SELFPAY ==
[2025-04-06] VITALS (23 sets, daily range): BP systolic 161–199; BP diastolic 80–111; PULSE 59–81; TEMP 36.5; O2SAT 93–98; BMI 32.5
--- NOTE | 2025-04-06 15:42 | ECG_ITS ---
[facility] Test Date: 2025-04-06 Pat Name: PADMINI LLOYD Department: Room: - Gender: Male Business Development Professional: : 1950 Requested By: [id number] Order Number: [id number] Reading MD: SRINIVAS HARRIS Measurements Intervals Riparius Rate: 59 P: 35 FL: 192 QRS: -12 QRSD: 106 T: 34 QT: 450 QTc: 449 Interpretive Statements 1100 Sinus bradycardia 5211 Minimal voltage criteria for LVH, may be normal variant ANTEROSEPTAL INFARCT, AGE INDETERMINATE cannot be ruled out 9130 borderline ECG Compared to ECG 03/02/2022 14:04:34 Sinus bradycardia now present Possible anteroseptal infarct age indeterminate now present Electronically Signed On 04-07-2025 13:57:01 EDT by SRINIVAS HARRIS
--- NOTE | 2025-04-06 16:08 | ED.GENADUL1 ---
HPI HPI - General Adult General Chief complaint: Weakness Stated complaint: FELT FAINT, SWEATING, VOMITING Time Seen by Provider: 04/06/25 15:34 Source: patient Mode of arrival: Wheelchair Limitations: no limitations History of Present Illness HPI narrative: Patient is a 75-year-old male presenting to the emergency department for evaluation of nausea and dizziness. Patient states that he was working in his shop when he had acute onset of dizziness associate with nausea. He felt like he was going to throw up, but never did. He states that symptoms lasted about 30 minutes before self resolving. He states he felt sweaty and generally unwell when this happened. He has never had symptoms like this in the past. He denies history of prior strokes or MIs. He only has a history of hypertension. Currently, the patient feels well and is asymptomatic. He denies any chest pain, palpitations, shortness of breath. No fevers or chills. No abdominal pain. He denies any numbness or tingling in the extremities. No weakness in his extremities. No visual changes or other neurologic complaints. Related Data Home Medications ?Medication ?Instructions ?Recorded ?Confirmed warfarin 1 mg tablet 6 mg PO DAILY 01/21/23 04/06/25 magnesium 200 mg tablet 200 mg PO DAILY 04/06/25 04/06/25 multivitamin (Daily Multi-Vitamin 1 tab PO DAILY 04/06/25 04/06/25 tablet) nebivolol 5 mg tablet 5 mg PO DAILY 04/06/25 04/06/25 potassium citrate 10 mEq (1,080 1,080 mg PO BID 04/06/25 04/06/25 mg) tablet,extended release vitamins B1 B6 B12 tablet 1 tab PO .WEEKLY 04/06/25 04/06/25 Previous Rx's ?Medication ?Instructions ?Recorded meclizine 25 mg tablet 25 mg PO BID PRN dizziness #10 tabs 04/06/25 Allergies Allergy/AdvReac Type Severity Reaction Status Date / Time moxifloxacin (From Avelox) Allergy Severe Verified 01/21/23 12:17 Quinolones Allergy Severe Verified 01/21/23 12:17 Sulfa (Sulfonamide Allergy Severe Verified 01/21/23 12:17 Antibiotics) sulfamethoxazole (From Allergy Severe Verified 01/21/23 12:17 Bactrim) trimethoprim (From Bactrim) Allergy Severe Verified 01/21/23 12:17 Opioid HPI Opioid Management Most Recent Opioid Data: Last Pain Scale 2 Today, 15:35 Review of Systems ROS Status of ROS 10 or more systems reviewed and unremarkable except as noted in history and below [facility] Medical History (Updated 04/06/25 @ 18:19 by Flynn Kirby DO) DVT (deep venous thrombosis) ?I82.409 - Acute embolism and thrombosis of unspecified deep veins of unspecified lower extremity (ICD-10) Corneal abrasion ?S05.00XA - Injury of conjunctiva and corneal abrasion without foreign body, unspecified eye, initial encounter (ICD-10) Hypertension ?I10 - Essential (primary) hypertension (ICD-10) Social History Little interest or pleasure in doing things: not at all Feeling down, depressed, or hopeless: not at all Exam Narrative Exam Narrative: CONSTITUTIONAL: Well-appearing, answering questions and following commands appropriately SKIN: Was warm and dry. EYES: No scleral icterus. No conjunctival pallor EARS, NOSE, THROAT: Moist oral mucosa. RESPIRATORY: Clear to auscultation bilaterally, no wheezes, crackles, or stridor, no use of accessory muscles CARDIOVASCULAR: Normal rate and regular rhythm. There is no S3, S4, murmur, rub. Radial pulses are 2+ and symmetrical. GASTROINTESTINAL: Abdomen was soft, non-tender, and non-distended. There is no guarding or rebound tenderness MUSCULOSKELETAL: There was no lower extremity edema, erythema, or tenderness. NEUROLOGIC: Patient is alert and oriented to person place and time with normal speech. Memory is normal and thought process is intact. Speech intact without dysarthria. GCS 15. NIHSS 0. Sensation: sensation to light touch is intact bilaterally in upper and lower extremities. Motor: Good muscle tone. Strength is 5/5 bilaterally in the upper and lower extremities. Cerebellar: Finger to nose intact. Patient has a normal gait without ataxia. Cranial Nerves: Pupils are round, reactive to light and accommodation. Extraocular movements are intact without ptosis. No nystagmus. Facial sensation intact bilaterally to light touch in the V1, V2, V3 distribution. Facial muscle strength is normal and equal bilaterally. Hearing is normal bilaterally. Palate and uvula elevate symmetrically. Shoulder shrug strong and equal bilaterally. Tongue protrudes midline and moves symmetrically. Constitutional Vital Signs, click to edit/add: Last Vital Signs Temp 97.7 F 09/02/25 15:35 Pulse 69 04/06/25 18:20 Resp 16 04/06/25 18:20 BP 175/80 H 04/06/25 17:26 Pulse Ox 95 04/06/25 18:20 O2 Del Method Room Air 04/06/25 15:35 Course Vital Signs Vital signs: Vital Signs Temperature 97.7 F 04/06/25 15:35 Pulse Rate 61 04/06/25 15:35 Respiratory Rate 18 04/06/25 15:35 Blood Pressure 171/99 H 04/06/25 15:35 Pulse Oximetry 96 04/06/25 15:35 Oxygen Delivery Method Room Air 04/06/25 15:35 Temperature 97.7 F 04/06/25 15:35 Pulse Rate 69 04/06/25 18:20 Respiratory Rate 16 04/06/25 18:20 Blood Pressure 175/80 H 04/06/25 17:26 Pulse Oximetry 95 04/06/25 18:20 Oxygen Delivery Method Room Air 04/06/25 15:35 Medical Decision Making MDM Narrative Medical decision making narrative: Patient is a 75-year-old male presenting to the emergency department with acute onset nausea and dizziness beginning acutely approximately 1 hour prior to arrival. Vital signs on arrival are significant for hypertension, otherwise were within normal limits. He is afebrile and hemodynamically stable. Examination as noted above. He has no focal neurologic deficits. He was able to ambulate to the bathroom without symptoms prior to any intervention. My clinical impression is that the patient had an episode of vertigo. Differential diagnose includes benign paroxysmal positional vertigo, inner ear pathology such as vestibular neuritis, ACS, arrhythmia, or other electrolyte/metabolic derangement. Patient has no focal neurologic deficits making CVA less likely, however CT/CTA of the head and neck were obtained to evaluate for posterior circulation pathologies. IV was established and laboratory studies were obtained. He was given oral meclizine for symptomatic treatment. 12 Lead EKG: Sinus bradycardia at a rate of 59. Normal axis. No ST segment elevations. QRS, [place], and QTc interval within normal limits. Final impression: Sinus bradycardia without evidence of acute myocardial ischemia Laboratory studies were unremarkable. No significant electrolyte or metabolic derangement. No evidence of acute kidney injury. No anemia, leukocytosis, or thrombocytopenia. No transaminitis or hyperbilirubinemia. Initial and repeat 2-hour troponin were negative. CT head independently reviewed/interpreted by myself and radiology demonstrated no acute intracranial pathology or hemorrhage. CTA of the head/neck demonstrated no large vessel occlusion, aneurysm, or dissection in the major vessels. On reevaluation, patient states he feels improved and is currently asymptomatic. Again, he was able to stand up and walk to the bathroom without any symptoms. His presentation is likely secondary to peripheral vertigo. He has no focal neurologic deficits or abnormalities on neuroimaging to suggest a central etiology such as CVA. Additionally, he had a normal cardiac workup making cardiogenic etiologies of lower likelihood. I did instruct him to follow-up with his PCP for further care in the next 3 to 5 days. Strict return precautions were given with any any new or concerning symptoms, or any other concerning neurologic symptoms. Additionally, he was given a prescription for meclizine 25 mg as needed for dizziness. Patient understands and agrees the plan. FINAL IMPRESSION: #Acute dizziness, likely peripheral vertigo, resolved DISPOSITION: Discharged home CONDITION: Good Medical Records Medical records reviewed: Yes I reviewed the patient's medical records Lab Data Lab results reviewed: Yes I reviewed the patient's lab results Labs: Lab Results 04/06/25 04/06/25 04/06/25 Range/Units 15:43 15:44 17:49 WBC 7.5 (4.0-11.0) 10^3/uL RBC 5.53 (4.70-6.10) 10^6/uL Hgb 17.1 (14.0-18.0) g/dL Hct 50.0 (42.0-54.0) % MCV 90.4 (80.0-94.0) fL MCH 30.9 (25.9-34.0) pg MCHC 34.2 (29.9-35.2) g/dL RDW 12.7 (11.0-15.0) % Plt Count 200 (150-450) 10^3/uL MPV 9.6 (9.5-13.5) fL Neut % (Auto) 52.0 (43.0-75.0) % Lymph % (Auto) 36.4 (20.5-60.0) % [place] % (Auto) 10.0 (1.7-12.0) % Eos % (Auto) 0.4 L (0.9-7.0) % Baso % (Auto) 0.4 (0.2-2.0) % Neut # (Auto) 3.9 (1.4-6.5) 10^3/uL Lymph # (Auto) 2.7 (1.2-3.8) 10^3/uL [place] # (Auto) 0.8 (0.3-0.8) 10^3/uL Eos # (Auto) 0.0 (0.0-0.7) 10^3/uL Baso # (Auto) 0.0 (0.0-0.1) 10^3/uL Abs Immat Gran (auto) 0.06 H (0.00-0.03) 10^3/uL Imm/Tot Granulo (auto) 0.8 H (0.0-0.5) % Sodium 141 (136-145) mmol/L Potassium 3.9 (3.5-5.1) mmol/L Chloride 105 (98-107) mmol/L Carbon Dioxide 26.4 (21.0-32.0) mmol/L Anion Gap 13.5 BUN 22.0 H (7.0-18.0) mg/dL Creatinine 1.26 (0.70-1.30) mg/dL Est GFR ( Amer) >60 (>=60 mL/min/1.73m^2) Est GFR (Non-Af Amer) 56 L (>=60 mL/min/1.73m^2) BUN/Creatinine Ratio 17.5 Glucose 115 H (74-106) mg/dL Calcium 9.0 (8.5-10.1) mg/dL Magnesium 1.9 (1.8-2.4) mg/dL Total Bilirubin 0.7 (0.2-1.0) mg/dL AST 17 (15-37) U/L ALT 28 (16-63) U/L Alkaline Phosphatase 105 (46-116) U/L Troponin I High Sens 7.3 8.8 (4.0-76.1) pg/mL Total Protein 7.5 (6.4-8.2) g/dL Albumin 3.7 (3.4-5.0) g/dL Globulin 3.8 g/dL Albumin/Globulin Ratio 1.0 POC Glucose 106 (74-106) mg/dL Imaging Data CT scan - head: Attestation: I personally reviewed and interpreted this imaging study as follows: Radiologist's impression: ITS Impressions Head CT 04/06/25 16:34 IMPRESSION: NO ACUTE INTRACRANIAL ABNORMALITY. Impression dictated by: Andriy Zhao Jr., D.O. 04/06/2025 4:41 PM Dictation Location: RADIO-PC-23 Electronically authenticated by: [id number] Y Date: 04/06/2025 16:41 Head CTA 04/06/25 16:34 IMPRESSION: No occlusion, critical stenosis or dissection of the extracranial or intracranial circulation. Impression dictated by: Fran Knight M.D. 04/06/2025 5:38 PM Dictation Location: RADIO-PC-20 Electronically authenticated by: [id number] Y Date: 04/06/2025 17:38 Neck CTA 04/06/25 16:34 IMPRESSION: No occlusion, critical stenosis or dissection of the extracranial or intracranial circulation. Impression dictated by: Fran Knight M.D. 04/06/2025 5:38 PM Dictation Location: RADIO-PC-20 Electronically authenticated by: [id number] Y Date: 04/06/2025 17:38 ECG Data Attestation: I personally reviewed and interpreted this ECG as follows: Discharge Plan Discharge Chief Complaint: Weakness Clinical Impression: Vertigo Patient Disposition: Home, Self-Care Time of Disposition Decision: 18:19 Condition: Good Mode of Transportation: Private Vehicle Prescriptions / Home Meds: New meclizine 25 mg tablet 25 mg PO BID PRN (Reason: dizziness) Qty: 10 0RF No Action warfarin 1 mg tablet 6 mg PO DAILY nebivolol 5 mg tablet 5 mg PO DAILY potassium citrate 10 mEq (1,080 mg) tablet extended release 1,080 mg PO BID magnesium 200 mg tablet 200 mg PO DAILY multivitamin [Daily Multi-Vitamin] Tablet 1 tab PO DAILY vitamins B1 B6 B12 Tablet 1 tab PO .WEEKLY Print Language: Belarusian Instructions: Vertigo (ED) Referrals: HELEN ARIAS [Primary Care Provider, Family Practice] - 1 week Discharge Date/Time: 04/06/25 18:37
[2025-04-06 16:09] LABS: Hematocrit 50.0 % (42.0-54.0); Hemoglobin 17.1 g/dL (14.0-18.0); Immature Granulocytes Abs Auto 0.06 10^3/uL (0.00-0.03); Immature Granulocytes Pct Auto 0.8 % (0.0-0.5); Lymphocytes Absolute Auto 2.7 10^3/uL (1.2-3.8); Mean Corpuscular HGB Conc 34.2 g/dL (29.9-35.2); Mean Corpuscular Hemoglobin 30.9 pg (25.9-34.0); Mean Corpuscular Volume 90.4 fL (80.0-94.0); Platelet Count 200 10^3/uL (150-450); Red Blood Count 5.53 10^6/uL (4.70-6.10); White Blood Count 7.5 10^3/uL (4.0-11.0)
--- OUTSIDE RECORDS SUMMARY | 2025-04-06 16:10 | XMS_ITS | Encounter Summary ---
Author Organization [facility] Address [address] [place] [address] Care Team Providers Care Optical Design Engineer Name Role Phone Jarred Arias MD Unavailable [phone] aJrred Arias MD Primary Care Provider [phone] Kellie Odom MARINE ELECTRONICS TECHNICIAN Unavailable Chelsea Schrader MARINE ELECTRONICS TECHNICIAN Unavailable Matthew Bustos DO Unavailable [phone] Domenico Gipson MD Unavailable [phone] Juan Cook DO Unavailable [phone] Encounter Details Date Type Department Care Team (Late st Contact Info) Description 05/31/2023 Clinisync Result Encounter [facility] External Department Unsolicited Provider, Generic External Data Social History Tobacco Use Types Packs/Day Years Used Date Smoking Tobacco: Former Cigarettes 0.5 20 0 08/05/1964 - 08/05/1984 Smokeless Tobacco: Never Alcohol Use Standard Drinks/Week Comments Yes 2 (1 standard drink = 0.6 oz pur e alcohol) Occasionally Humiliation, Afraid, Rape, and Kick questionnair e Answer Date Recorded Within the last year, have y ou been afraid of your partner or ex-partner? No 01/22/2023 Within the last year, have y ou been humiliated or emotionally abused in other ways by your partner or ex-partner? No Within the last year, have y ou been kicked, hit, slapped, or otherwise physically hurt by your partner or ex-partner? No 01/22/2023 Within the last year, have y ou been raped or forced to have any kind of sexual activity by your partner or ex-partner? No 01/22/2023 Social Connection and Isolat ion Panel [NHANES] Answer Date Recorded In a typical week, how many times do you talk on the phone with family, friends, or neighbors? More than three times a week 01/22/2023 How often do you get togethe r with friends or relatives? More than three times a week 01/22/2023 How often do you attend chur ch or sabianist services? Never 01/22/2023 Do you belong to any clubs o r organizations such as mormon groups, unions, fraternal or athletic groups, or school groups? No 01/22/2023 How often do you attend meet ings of the clubs or organizations you belong to? Never 01/22/2023 Are you , , di vorced, , never , or living with a partner? 01/22/2023 AUDIT-C Answer Date Recorded Q1: How often do you have a drink containing alc ohol? Monthly or less 01/22/2023 Q2: How many drinks containi ng alcohol do you have on a typical day when you are drinking? 1 or 2 01/22/2023 Q3: How often do you have si x or more drinks on one occasion? Monthly 01/22/2023 Overall Financial Resource Strain (CARDIA) Answe r Date Recorded How hard is it for you to pa y for the very basics like food, housing, medical care, and heating? Not hard at all 01/22/2023 PHQ-2 Answer Date Recorded Patient Health Questionnaire-2 Score 0 05/08/2023 [facility] - Occupational Stress Questionnaire Answer Date Recorded Do you feel stress - tense, restless, nervous, or anxious, or unable to sleep at night because your mind is troubled all the time - these days? Only a little 01/22/2023 Exercise Vital Sign Answer Date Recorde d On average, how many days pe r week do you engage in moderate to strenuous exercise (like a brisk walk)? 4 days 01/22/2023 On average, how many minutes do you engage in exercise at this level? 20 min 01/22/2023 Hunger Vital Sign Answer Date Recorded Within the past 12 months, y ou worried that your food would run out before you got the money to buy more. Never true 01/23/20 23 Within the past 12 months, t he food you bought just didn't last and you didn't have money to get more. Never true 01/22/2023 PRAPARE - Transportation Answer Date Re corded In the past 12 months, has l ack of transportation kept you from medical appointments or from getting medications? No 01/04 In the past 12 months, has l ack of transportation kept you from meetings, work, or from getting things needed for daily living? No 01/22/2023 Housing Stability Vital Sign Answer Deny e Recorded In the last 12 months, was t here a time when you were not able to pay the mortgage or rent on time? No 01/22/2023 In the last 12 months, how many places have you lived? 1 01/22/2023 In the last 12 months, was t here a time when you did not have a steady place to sleep or slept in a detention (including now)? No 01/22/2023 Sex and Gender Information Value Date Recorded Sex Assigned at Not on file Legal Sex Male 6:47 PM EDT Gender Identity Not on file Sexual Orientation Not on file documented as of this encounter Plan of Treatment Not on file documented as of this encounter Procedures Procedure Name Priority Date/Time Associated Diagnosis Comments XR ABDOMEN 1V 05/31/2023 1:45 PM EDT documented in this encounter Results * XR ABDOMEN 1V (05/31/2023 1:45 PM EDT) Anatomical Region Laterality Modality Other 05/31/2023 1:45 PM EDT Narrative 05/31/2023 1:45 [place] [address] XRay Report Signed Patient: PADMINI CURRY MR#: [id number] : 1950 Acct:[id number] Age/Sex: 73 / M ADM Date: 05/31/23 Loc: RAD Attending Dr: Domenico Gipson M.D. Ordering Physician: Domenico Gipson M.D. Date of Service: 05/31/23 Procedure(s): XR abdomen 1V Accession Number(s): [id number] cc: Domenico Gipson M.D.; JARRED ARIAS [address] [address] Patient Name: PADMINI CURRY MRN: [id number] date: 1950 Sex: M Assigned Patient Location: RAD Current Patient Location: RAD Accession/Order Number: [id number] Exam Date: 05/31/2023 11:10 Report Date: 05/31/2023 13:45 At the request of: DOMENICO GIPSON Procedure: XR abdomen 1V EXAM: XR abdomen 1V HISTORY: Bladder Neck Contracture, Bladder Stones COMPARISON: None. TECHNIQUE: AP view of the abdomen. FINDINGS: Nonobstructive bowel gas pattern is noted. There is no suspicious calcification. The osseous structures are intact. XR/XR abdomen 1V IMPRESSION: Nonobstructive bowel gas pattern. No suspicious renal calcification. Electronically authenticated by: URMILA AYALA Date: 05/31/2023 13:45 Dictated By: Urmila Ayala M.D. Signed By: 05/31/23 1348 DD/ 1345 TD/TT: Agricultural Engineer: Procedure Note Radiology, Radiologist, MD - 05/31/2023 [place] [address] XRay Report Signed Patient: PADMINI CURRY CMR#: [id number] : 1950cct:[id number] Age/Sex: 73 / MADM Date: 05/31/23 Loc: RAD Attending Dr: Domenico Gipson M.D. Ordering Physician: Domenico Gipson M.D. Date of Service: 05/31/23 Procedure(s): XR abdomen 1V Accession Number(s): [id number] cc: Domenico Gipson M.D.; JARRED ARIAS [address] [address] Patient Name: PADMINI CURRY MRN: [id number] date: 1950 Sex: M Assigned Patient Location: RAD Current Patient Location: RAD Accession/Order Number: [id number] Exam Date: 05/31/2023 11:10 Report Date: 05/31/2023 13:45 At the request of: DOMENICO GIPSON Procedure: XR abdomen 1V EXAM: XR abdomen 1V HISTORY: Bladder Neck Contracture, Bladder Stones COMPARISON: None. TECHNIQUE: AP view of the abdomen. FINDINGS: Nonobstructive bowel gas pattern is noted. There is no suspicious calcification. The osseous structures are intact. XR/XR abdomen 1V IMPRESSION: Nonobstructive bowel gas pattern. No suspicious renal calcification. Electronically authenticated by: URMILA AYALA Date: 05/31/2023 13:45 Dictated By: Urmila Ayala M.D. Signed By:05/31/23 1348 DD/ 1345 TD/TT: Agricultural Engineer: us Generic External Data Provider [facility] Final Result documented in this encounter Visit Diagnoses Not on filedocumented in this encounter Additional Health Concerns Assessment Noted Time A fall risk assessment has been complete d for the patient 01/22/2023 12:41 PM EDT documented as of this encounter Care Teams Optical Design Engineer Relationship Specialty Start Date End Date Jarred Arias MD [address] [facility] [address] [place] [address] PCP - ACO Reach 12/27/22 Jarred Arias MD [address] [facility] [address] [place] [address] PCP - General Family Medicine 01/03/23 Kellie Odom LPN [address] [place] [address] Licensed Practical Nurse Family Medicine 01/03/23 Chelsea Schrader LPN [address] [facility] [address] [place] [address] 11/03/24 Matthew Bustos DO [address] [place] [address] Referring Physician Orthopaedic Surgery 01/17/25 Domenico Gipson MD [address] [facility] [address] [place] [address] Referring Physician Urology 01/17/25 Juan Cook DO [address] [place] [address] Referring Physician Otolaryngology 01/17/25 documented as of this encounter
--- OUTSIDE RECORDS SUMMARY | 2025-04-06 16:10 | XMS_ITS | Encounter Summary ---
Author Organization [facility] Address [address] [place] [address] Care Team Providers Care Inspector Water Pollution Control Name Role Phone Jarred Mendoza MD Unavailable [phone] Jarred Mendoza MD Primary Care Provider [phone] Kellie Odom GUYLINE OPERATOR Unavailable Chelsea Schrader GUYLINE OPERATOR Unavailable Matthew Bustos DO Unavailable [phone] Domenico Gipson MD Unavailable [phone] Juan Cook DO Unavailable Encounter Details Date Type Department Care Team (Late st Contact Info) Description 11/29/2023 Abstract [facility] Family [facility] [address] [facility] [place] [place] [address] Matthew Bustos DO [address] [place] [address] Social History Tobacco Use Types Packs/Day Years Used Date Smoking Tobacco: Former Cigarettes 0.5 20 0 08/05/1964 - 08/05/1984 Smokeless Tobacco: Never Alcohol Use Standard Drinks/Week Comments Not Currently 2 (1 standard drink = 0.6 oz pure alcohol) Occasionally; caffeine intake : none Humiliation, Afraid, Rape, and Kick questionnair e [...] neighbors? More than three times a week 10/15/2023 How often do you get togethe r with friends or relatives? Once a week 10/15/2023 How often do you attend chur or mu-ism services? More than 4 times per year 10/15/2023 Do you belong to any clubs o r organizations such as sikh groups, unions, fraternal or athletic groups, or school groups? Yes 10/15/2023 How often do you attend meet ings of the clubs or organizations you belong to? More than 4 times per year 10/15/2023 Are you , , di vorced, , never , or living with a partner? 10/15/2023 AUDIT-C Answer Date Recorded Q1: How often do you have a drink containing alcohol? Monthly or less 10/15/2023 Q2: How many drinks containi ng alcohol do you have on a typical day when you are drinking? Patient does not drink Q3: How often do you have si x or more drinks on one occasion? Never 10/15/2023 Overall Financial Resource Strain (CARDIA) Answe r Date Recorded How hard is it for you to pa y for the very basics like food, housing, medical care, and heating? Not hard at all 10/15/2023 PHQ-2 Answer Date Recorded Patient Health Questionnaire-2 Score 0 09/03/2023 [facility] [place] of Occupat ional Health - Occupational Stress Questionnaire Answer Date Recorded Do you feel stress - tense, restless, nervous, or anxious, or unable to sleep at night because your mind is troubled all the time - these days? Not at all 10/15/2023 Exercise Vital Sign Answer Date Recorde d On average, how many days pe r week do you engage in moderate to strenuous exercise (like a brisk walk)? 5 days 10/15/2023 On average, how many minutes do you engage in exercise at this level? 20 min 10/15/2023 Hunger Vital Sign Answer Date Recorded Within the past 12 months, y ou worried that your food would run out before you got the money to buy more. Never true 10/15/19 24 Within the past 12 months, t he food you bought just didn't last and you didn't have money to get more. Never true 10/15/2023 PRAPARE - Transportation Answer Date Re corded In the past 12 months, has l ack of transportation kept you from medical appointments or from getting medications? No 10/03 In the past 12 months, has l ack of transportation kept you from meetings, work, or from getting things needed for daily living? No 10/15/2023 Housing Stability Vital Sign Answer Deny e Recorded In the last 12 months, was t here a time when you were not able to pay the mortgage or rent on time? No 10/15/2023 In the last 12 months, how many places have you lived? 1 10/15/2023 In the last 12 months, was t here a time when you did not have a steady place to sleep or slept in a group home (including now)? No 10/15/2023 Sex and Gender Information Value Date Recorded Sex Assigned at Not on file Legal Sex Male 6:47 PM EDT Gender Identity Not on file Sexual Orientation Not on file documented as of this encounter Plan of Treatment Not on file documented as of this encounter Visit Diagnoses Not on filedocumented in this encounter Additional Health Concerns Assessment Noted Time A fall risk assessment has been complete d for the patient 01/22/2023 12:41 PM EDT documented as of this encounter Care Teams Inspector Water Pollution Control Relationship Specialty Start Date End Date Jarred Mendoza MD [address] [address] PCP - ACO Reach 12/27/22 Jarred Mendoza MD [address] [address] [place] [address] (Fax) PCP - General Family Medicine 01/03/23 Kellie Odom LPN [address] [place] [address] Licensed Practical Nurse Family Medicine 01/03/23 Chelsea Schrader LPN [address] [place] [address] 11/03/24 Matthew Bustos DO [address] [address] Referring Physician Orthopaedic Surgery 01/17/25 Domenico Gipson MD [address] [facility] [address] [place] [address] Referring Physician Urology 01/17/25 Juan Cook DO [address] [place] [address] Referring Physician Otolaryngology 01/17/25 documented as of this encounter
--- OUTSIDE RECORDS SUMMARY | 2025-04-06 16:10 | XMS_ITS | Clinical Summary ---
Author Organization [facility] Address [address] [place] [address] Care Team Providers Care Medical Device Engineer Name Role Phone Jarred Mendoza MD Primary Care Provider Allergies Active Allergy Reactions Criticality Noted Date Comments Moxifloxacin Hcl Mental Status Change 7 Sulfamethoxazole-Trimetho prim Mental Status Change,Other: See Comments 07/16/2018 Renal Failure Quinolones Other: See Comments 07/11/2021 Confusion Sulfa (Sulfonamide Antibiotics) Other: See Comments 07/11/2021 Abdomin pain Medications Multivitamin capsule Take 1 capsule by mouth once daily. Active warfarin sodium (WARFARIN ORAL) Take by mouth daily as directed. As Directed Active ergocalciferol, vitamin D2, (VITAMIN D2 ORAL) Take by mouth. Active losartan (COZAAR) 100 mg tablet Take 100 mg by mouth once daily. Active cyanocobalamin (VITAMIN B-12) 1,000 mcg tab Take 1,000 mcg by mouth two times a week. Active ZINC ORAL Take 25 mg by mouth. Active Magnesium 250 mg tab Take 250 mg by mouth. Active potassium citrate ER (UROCIT-K) 10 mEq (1,080 mg) Take 2,160 mg by mouth two times a day. 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/11/2007): Presumptive schwannoma or meningioma Family History Medical History Relation Comments Leukemia Brother Colon Cancer Father Prostate Cancer Father Macular Degen Mother Relation Status Comments Brother Father Mother Social History Tobacco Use Types Packs/Day Years Used Date Smoking Tobacco: Former Cigarettes 1 15 0 09/10/1969 - 09/10/1984 Smokeless Tobacco: Never Tobacco Cessation:Counseling Given: Not Answered Alcohol Use Standard Drinks/Week Comments Not Currently 0 (1 standard drink = 0.6 oz pur e alcohol) PHQ-2 Answer Date Recorded PHQ-2 score 0 09/05/2023 Area Deprivation Index Answer Date Dorian rded National Score (1-100), lower number is lower ri sk 65 09/05/2023 State Score (1-10), lower number is lower risk 4 09/05/2023 Data from: https://www.neighborhoodatlas.[facility]/. Last address used for calculation [address] 09/05/2023 Sex and Gender Information Value Date Recorded Sex Assigned at Not on file Legal Sex Male 8:11 AM EST Gender Identity Not on file Sexual Orientation Not on file Last Filed Vital Signs Vital Sign Reading Time Taken Comments Blood Pressure 144/96 05/20/2024 11:20 AM EDT Pulse 63 05/20/2024 11:20 AM EDT Temperature 36.2 C (97.2 F) 05/20/2024 11:10 AM EDT Respiratory Rate 16 05/20/2024 11:20 AM EDT Oxygen Saturation 94% 05/20/2024 11:20 AM EDT Inhaled Oxygen Concentration - - Weight 109 kg (240 lb 4.8 oz) 05/05/2024 12:50 P M EDT Height 182.9 cm (6') 05/05/2024 12:50 PM EDT Body Mass Index 32.59 05/05/2024 12:50 PM EDT Plan of Treatment Health Maintenance Due Date Last Done Comments Abdominal Aortic Aneurysm Screening 1952 Annual PCP Team Chronic Disease Visit 1970 Anxiety Screening 1970 Depression Screening 1970 Hepatitis C Screening 1970 DTaP,Tdap,Td Vaccine (1 - Tdap) [address] Colonography 1997 Cologuard (FIT-DNA) 1997 Colonoscopy 1997 Colorectal Cancer Screening 1997 Fecal Occult Blood 1997 Sigmoidoscopy 1997 Shingrix Vaccine (1 of 2) 2002 Medicare Annual Wellness Visit 03/05/2017 Pneumococcal Vaccine: 50+ (2 of 2 - PCV) 07/15/2018 07/15/2017 Advance Directive Discussion 08/05/2024 Influenza Vaccine (#1) 2025 Diabetes Screening 10/10/2026 10/11/2023, 0 08/28/2023, 03/02/2021 RSV Vaccine (1 - 1-dose 75+ series) 2027 Medical Devices Implanted Type Area Newspaper Photojournalist Device Identifier Shelf Expiration Date Model / Serial / Lot [id number] [facility] - [id number] Implanted:Qty : 1 on 05/20/2024 by Em Kent MD at [facility] Intraocular Lens Left: Eye [facility] 11/03/2027 [id number] / [id number] / Procedures Procedure Name Priority Date/Time Associated Diagnosis Comments COMPREHENSIVE METABOLIC PANEL Routine 08/28/2023 10:01 AM EST History of prostate cancer Malignant neoplasm of left orbit (HCC) from Last 3 Months or Most Recently Relevant to Health Maintenance Results * (ABNORMAL) COMP METABOLIC PANEL (08/28/2023 10:01 AM EST) Pathologist [facility] Protein, Total 7.0 6.3 - 8.0 g/dL 08/28/2023 10:48 AM EST [facility] Albumin 4.2 3.9 - 4.9 g/dL 08/28/2023 10:48 AM EST [facility] Calcium, Total 11.6(H) 8.5 - 10.2 mg/dL 08/28/2023 10:48 AM EST [facility] Comment:RECHECKED JT Bilirubin, Total 0.6 0.2 - 1.3 mg/dL 08/28/2023 10:48 AM EST [facility] Alkaline Phosphatase 146(H) 38 - 113 U/L 08/28/2023 10:48 AM EST [facility] AST 16 14 - 40 U/L 08/28/2023 10:48 AM EST [facility] ALT 22 10 - 54 U/L 08/28/2023 10:48 AM EST [facility] Glucose 96 74 - 99 mg/dL 08/28/2023 10:48 AM [facility] Comment: The [place] Diabetes Association (ADA) provides guidance for cutoff [...] Standards of Medical Care in Diabetes 2016, [place] Diabetes Association. Diabetes Care. 2016.39(Suppl 1). BUN 25(H) 9 - 24 mg/dL 08/28/2023 10:48 AM [facility] Creatinine 1.16 0.73 - 1.22 mg/dL 08/28/2023 10:48 AM [facility] Sodium 140 136 - 144 mmol/L 08/28/2023 10:48 AM [facility] Potassium 4.4 3.7 - 5.1 mmol/L 08/28/2023 10:48 AM [facility] Chloride 106(H) 97 - 105 mmol/L 08/28/2023 10:48 AM [facility] CO2 26 22 - 30 mmol/L 08/28/2023 10:48 AM [facility] Anion Gap 8(L) 9 - 18 mmol/L 08/28/2023 10:48 AM [facility] Estimated Glomerular Filtration Rate 67 >=60 mL/min/1. 73m 08/28/2023 10:48 AM [facility] Comment:Estimated Glomerular Filtration Rate (eGFR) is calculated using the 2020 CKD-EPI creatinine equation. This equation utilizes serum creatinine, sex, and age as parameters. The creatinine assay has traceable calibration to isotope dilution- mass spectrometry. Refer to KDIGO guidelines for clinical interpretation. In patients with unstable renal function, e.g. those with acute kidney injury, the eGFR may not accurately reflect actual GFR. Blood BLOOD SPECIMEN / Unknown Venipuncture / Unknown 08/28/2023 10:01 AM EST 08/28/2023 10:01 AM EST us G Jose Norton MD LABORATORY Final Resul t [facility] [address] [place] [address] from Last 3 Months or Most Recently Relevant to Health Maintenance Insurance MEDICARE RA[facility]ROAD MEDICARE [facility] Care Teams Medical Device Engineer Relationship Specialty Start Date End Date Jarred Mendoza MD [address] [facility] [place] [address] PCP - General Family Medicine 10/23/16
--- OUTSIDE RECORDS SUMMARY | 2025-04-06 16:10 | XMS_ITS | Encounter Summary ---
Author Organization [facility] Address [address] [place] [address] Care Team Providers Care Electrical Service Technician Name Role Phone Jarred Mendoza MD Unavailable [phone] Jarred Mendoza MD Primary Care Provider [phone] Kellie Odom LITIGATION ATTORNEY ASSOCIATE Unavailable Chelsea Schrader LITIGATION ATTORNEY ASSOCIATE Unavailable Matthew Bustos DO Unavailable [phone] Domenico Gipson MD Unavailable [phone] Juan Cook DO Unavailable Encounter Details Date Type Department Care Team (Late st Contact Info) Description 11/26/2023 Clinisync Result Encounter [facility] External Department Unsolicited Matthew Bustos DO [address] [place], [place] [id number] Social History Tobacco Use Types Packs/Day Years [...] How often do you attend chur or scientology services? More than 4 times per year 10/15/2023 Do you belong to any clubs o r organizations such as rastafarian groups, unions, fraternal or athletic groups, or [...] Recorded Patient Health Questionnaire-2 Score 0 09/03/2023 [facility] [place] of Occupat ional Health - Occupational Stress [...] place to sleep or slept in a care home (including now)? No 10/15/2023 Sex and Gender Information Value Date Recorded Sex Assigned at Not on file Legal Sex Male 6:47 PM EDT Gender Identity Not on file Sexual Orientation Not on file documented as of this encounter Plan of Treatment Not on file documented as of this encounter Procedures Procedure Name Priority Date/Time Associated Diagnosis Comments XR HIP 1 VIEW LEFT + PELVIS 11/26/2023 9:02 AM EDT documented in this encounter Results * XR HIP 1 VIEW LEFT + PELVIS (11/26/2023 9:02 AM EDT) Anatomical Region Laterality Modality Other 11/26/2023 9:02 AM EDT Narrative 11/28/2023 12:07 PM EDT Exam Date/Time: 11/26/2023 09:11 EDT Reason for Exam: Post Op Report IMPRESSION: POSTSURGICAL CHANGES OF LEFT TOTAL HIP ARTHROPLASTY. EXAM: X-ray hip, 2 view HISTORY: Postoperative evaluation total hip arthroplasty TECHNIQUE: Frontal and lateral views of the left hip COMPARISON: CT 11/11/2023 FINDINGS: Postsurgical changes of total hip arthroplasty including soft tissue emphysema. Alignment is anatomic. No periprosthetic abnormality. Ordering Provider: Matthew Bustos FINAL REPORT Dictated: 11/28/2023 12:04 pm Tristan Marcelo DO Signed (Electronic Signature): 11/28/2023 12:04 pm Signed by: Tristan Marcelo DO Transcribed by: EDI Technologist: BLANCA Technical Comments Radiation Dose: Ka,r in mGy = na DAP = na Procedure Note Radiology, Radiologist, MD - 11/28/2023 Exam Date/Time: 11/26/2023 09:11 EDT Reason for Exam: Post Op Report IMPRESSION: POSTSURGICAL CHANGES OF LEFT TOTAL HIP ARTHROPLASTY. EXAM: X-ray hip, 2 view HISTORY: Postoperative evaluation total hip arthroplasty TECHNIQUE: Frontal and lateral views of the left hip COMPARISON: CT 11/11/2023 FINDINGS: Postsurgical changes of total hip arthroplasty including soft tissueemphysema. Alignment is anatomic. No periprosthetic abnormality. Ordering Provider: Matthew Bustos FINAL REPORT Dictated: 11/28/2023 12:04 pm Tristan Marcelo DO Signed (Electronic Signature): 11/28/2023 12:04 pm Signed by: Tristan Marcelo DO Transcribed by: EDI Technologist: BLANCA Technical Comments Radiation Dose: Ka,r in mGy = na DAP = na Matthew Bustos DO [facility] Final Result documented in this encounter Visit Diagnoses Not on filedocumented in this encounter Additional Health Concerns Assessment Noted Time A fall risk assessment has been complete d for the patient 01/22/2023 12:41 PM EDT documented as of this encounter Care Teams Electrical Service Technician Relationship Specialty Start Date End Date Jarred Mendoza MD [address] [place] [address] PCP - ACO Reach 12/27/22 Jarred Mendoza MD [address] [place] [address] PCP - General Family Medicine 01/03/23 Kellie Odom LPN [address] [place] [address] Licensed Practical Nurse Family Medicine 01/03/23 Chelsea Schrader LPN [address] [place] [address] 11/03/24 Matthew Bustos DO [address] [place] [address] Referring Physician Orthopaedic Surgery 01/17/25 Domenico Gipson MD [address] [facility] [place] [address] Referring Physician Urology 01/17/25 Juan Cook DO [address] [place] [address] Referring Physician Otolaryngology 01/17/25 documented as of this encounter
--- OUTSIDE RECORDS SUMMARY | 2025-04-06 16:10 | XMS_ITS | Clinical Summary ---
Author Organization [facility] Address [address] [place] [address] Care Team Providers Care Theater Usher Name Role Phone Unavailable Primary Care Provider Unavailabl e Social History Tobacco Use Types Packs/Day Years Used Date Smoking Tobacco: Never Assessed Sex and Gender Information Value Date Recorded Sex Assigned at Not on file Legal Sex Male 12:30 AM EDT Gender Identity Not on file Sexual Orientation Not on file Plan of Treatment Not on file
--- OUTSIDE RECORDS SUMMARY | 2025-04-06 16:10 | XMS_ITS | Encounter Summary ---
Author Organization [facility] Address [address] [place] [address] Care Team Providers Care Dissolver Operator Name Role Phone Jarred Mendoza MD Unavailable [phone] Jarred Mendoza MD Primary Care Provider [phone] Kellie Odom APPRENTICE COSMETOLOGIST Unavailable Chelsea Schrader APPRENTICE COSMETOLOGIST Unavailable Matthew Bustos DO Unavailable [phone] Domenico Gipson MD Unavailable [phone] ChandanaenidJuan DO Unavailable [phone] Reason for Visit * Reason Comments Med Refill Encounter Details Date Type Department Care Team (Late st Contact Info) Description 09/29/2024 Refill [facility] [address] [place] [address] Jarred Mendoza MD [address] [place] [address] [address] [place] [address] (Fax) Chronic deep vein thrombosis (DVT) of calf muscle vein of right lower extremity (HCC) Social History Tobacco Use Types Packs/Day Years [...] How often do you attend chur or baptism services? More than 4 times per year 10/15/2023 Do you belong to any clubs o r organizations such as scientology groups, unions, fraternal or athletic groups, or [...] Date Recorded Patient Health Questionnaire-2 Score 0 01/27/2024 [facility] of Occupat ional Health - [...] place to sleep or slept in a residential (including now)? No 10/15/2023 Sex and Gender Information Value Date Recorded Sex Assigned at Not on file Legal Sex Male 6:47 PM EDT Gender Identity Not on file Sexual Orientation Not on file documented as of this encounter Plan of Treatment Not on file documented as of this encounter Visit Diagnoses Diagnosis Chronic deep vein thrombosis (DVT) of calf muscle vein of right lower extremity (HCC) documented in this encounter Additional Health Concerns Assessment Noted Time A fall risk assessment has been complete d for the patient 01/22/2023 12:41 PM EDT documented as of this encounter Care Teams Dissolver Operator Relationship Specialty Start Date End Date Jarred Mendoza MD [address] [place] [address] (Fax) PCP - ACO Reach 12/27/22 Jarred Mendoza MD [address] [place] [address] PCP - General Family Medicine 01/03/23 Kellie Odom, APPRENTICE COSMETOLOGIST [address] [place] [address] Licensed Practical Nurse Family Medicine 01/03/23 Chelsea Schrader LPN [address] [place] [address] 11/03/24 Matthew Bustos DO [address] [place] [address] Referring Physician Orthopaedic Surgery 01/17/25 Domenico Gipson MD [address] [facility] [address] [place] [address] Referring Physician Urology 01/17/25 Juan Cook DO [address] [facility] [address] Referring Physician Otolaryngology 01/17/25 documented as of this encounter
--- OUTSIDE RECORDS SUMMARY | 2025-04-06 16:10 | XMS_ITS | Encounter Summary ---
Author Organization [facility] Address [address] [place] [address] Care Team Providers Care Line Palletizer Name Role Phone Jarred Mendoza MD Unavailable [phone] Jarred Mendoza MD Primary Care Provider Kellie Odom NETWORK ADMIN Unavailable Chelsea Schrader NETWORK ADMIN Unavailable Matthew Bustos DO Unavailable [phone] Domenico Gipson MD Unavailable [phone] BraydongaurangJuan DO Unavailable [phone] Encounter Details Date Type Department Care Team (Late st Contact Info) Description 05/21/2023 Abstract [facility] Family Medicine [address] [facility] [address] Jarred Mendoza MD 112 [facility] [address] [place] [address] Social History Tobacco Use Types Packs/Day Years [...] 01/22/2023 How often do you attend chur or sikh services? Never 01/22/2023 Do you belong to any clubs o r organizations such as christianity groups, unions, fraternal or athletic groups, or [...] Recorded Patient Health Questionnaire-2 Score 0 05/08/2023 [facility] [place] of Occupat ional Health - Occupational Stress [...] money to buy more. Never true 01/23/20 Within the past 12 months, t he [...] place to sleep or slept in a snf (including now)? No 01/22/2023 Sex and Gender [...] documented as of this encounter Care Teams Line Palletizer Relationship Specialty Start Date End Date Jarred Mendoza MD [address] [address] PCP - ACO Reach 12/27/22 Jarred Mendoza MD [address] [address] PCP - General Family Medicine 01/03/23 Kellie Odom LPN [address] [place] [address] Licensed Practical Nurse Family Medicine 01/03/23 Chelsea Schrader LPN [address] [facility] [address] [place] [address] 11/03/24 Matthew Bustos DO [address] [place] [address] Referring Physician Orthopaedic Surgery 01/17/25 Domenico Gipson MD [address] [facility] [address] [place] [address] Referring Physician Urology 01/17/25 Juan Cook DO [address] [place] [address] Referring Physician Otolaryngology 01/17/25 documented as of this encounter
--- OUTSIDE RECORDS SUMMARY | 2025-04-06 16:10 | XMS_ITS | Encounter Summary ---
Author Organization [facility] Address [address] [place] [address] Care Team Providers Care Electromechanical Equipment Tester Name Role Phone Jarred Mendoza MD Unavailable [phone] Jarred Mendoza MD Primary Care Provider [phone] Kellie Odom BAGGAGE HANDLER Unavailable Chelsea Schrader BAGGAGE HANDLER Unavailable Matthew Bustos DO Unavailable [phone] Domenico Gipson MD Unavailable [phone] Juan Cook DO Unavailable Encounter Details Date Type Department Care Team (Late st Contact Info) Description 11/11/2023 Clinisync Result Encounter [facility] External Department Unsolicited Matthew Bustos DO [address] [place], [place] [id number] Social History Tobacco Use Types Packs/Day Years [...] How often do you attend chur or presybeterian services? More than 4 times per year 10/15/2023 Do you belong to any clubs o r organizations such as buddhist groups, unions, fraternal or athletic groups, or [...] Recorded Patient Health Questionnaire-2 Score 0 09/03/2023 [facility] [place] of Occupat ional Health - Occupational Stress [...] place to sleep or slept in a intermediate (including now)? No 10/15/2023 Sex and Gender Information Value Date Recorded Sex Assigned at Not on file Legal Sex Male 6:47 PM EDT Gender Identity Not on file Sexual Orientation Not on file documented as of this encounter Plan of Treatment Not on file documented as of this encounter Procedures Procedure Name Priority Date/Time Associated Diagnosis Comments CT LOWER EXTREMITY W/O CONTRAST LEFT 11/11/2023 11:27 AM EDT documented in this encounter Results * CT LOWER EXTREMITY W/O CONTRAST LEFT (11/11/2023 11:27 AM EDT) Anatomical Region Laterality Modality Other 11/11/2023 11:2 7 AM EDT Narrative 11/14/2023 3:41 PM EDT Exam Date/Time: 11/11/2023 11:33 EDT Reason for [...] both knees is otherwise noncontributory. Ordering Provider: Matthew Bustos FINAL REPORT Dictated: 11/14/2023 3:38 pm Brannon Nieves MD Signed (Electronic Signature): 11/14/2023 3:38 pm Signed by: Brannon Nieves MD Transcribed by: EDI Technologist: CL Procedure Note Radiology, Radiologist, - 11/14/2023 Exam Date/Time: 11/11/2023 11:33 EDT Reason for Exam: LEFT HIP OA Report IMPRESSION: CT FOR HIP PROSTHESIS CREATION. 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 EXAM: CT Lower Extremity w/o Contrast Left DATE: 11/11/2023 11:27 AM CLINICAL HISTORY: LEFT HIP OA. COMPARISON: Outside radiographs 11/01/2023. TECHNIQUE: Spiral unenhanced imaging was obtained of the left lowerextremity for prosthesis creation, using Ruddy protocol. All CT scans at this facility use dose modulation, iterativereconstruction, and/or weight based dosing when appropriate to reduce radiation dose to as low asreasonably achievable. 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 Minimal to mild osteoarthritic changes are present of the right hip andsacroiliac joints. Moderate degenerative changes are present of the visualized lowerlumbar spine and lumbosacral junction. Brachytherapy seeds within an otherwise unremarkable appearing prostategland. Small fat-containing bilateral inguinal hernias. Minimal calcifiedatherosclerotic plaquing of the distal abdominal aorta and common iliac arteries. Additionalimaging of the pelvis and both knees is otherwise noncontributory. Ordering Provider: Matthew Bustos FINAL REPORT Dictated: 11/14/2023 3:38 pm Brannon Nieves MD Signed (Electronic Signature): 11/14/2023 3:38 pm Signed by: Brannon Nieves MD Transcribed by: EDI Technologist: CL Authormayra Provider Result Type Result Stat Matthew Bustos DO [facility] Final Result documented in this encounter Visit Diagnoses Not on filedocumented in this encounter Additional Health Concerns Assessment Noted Time A fall risk assessment has been complete d for the patient 01/22/2023 12:41 PM EDT documented as of this encounter Care Teams Electromechanical Equipment Tester Relationship Specialty Start Date End Date Jarred Mendoza MD 112 [facility] 100 [place] [address] (Fax) PCP - ACO Reach 12/27/22 Jarred Mendoza MD 112 [facility] 100 [place] [address] (Fax) PCP - General Family Medicine 01/03/23 Kellie Odom LPN [address] [place] [address] Licensed Practical Nurse Family Medicine 01/03/23 Chelsea Schrader LPN [address] [place] [address] 11/03/24 Matthew [facility]ustos DO [facility] [place] [address] Referring Physician Orthopaedic Surgery 01/17/25 Domenico Gipson MD [address] [facility] [address] [facility] [address] [place] [address] Referring Physician Urology 01/17/25 Juan Cook DO [address] [place] [address] Referring Physician Otolaryngology 01/17/25 documented as of this encounter
--- OUTSIDE RECORDS SUMMARY | 2025-04-06 16:10 | XMS_ITS | Encounter Summary ---
Author Organization [facility] Address [address] [place] [address] Care Team Providers Care Public Health Teacher Name Role Phone Jarred Mendoza MD Unavailable [phone] Jarred Mendoza MD Primary Care Provider [phone] Kellie Odom GROCERY SUPERVISOR Unavailable Chelsea Schrader GROCERY SUPERVISOR Unavailable Matthew Bustos DO Unavailable [phone] Domenico Gipson MD Unavailable [phone] ChandanaenidJuan DO Unavailable [phone] Encounter Details Date Type Department Care Team (Late st Contact Info) Description 2025 External Result Encounter [facility] External Department Unsolicited Jarred Mendoza MD 112 [facility] [address] [place], [place] [id number] Social History Tobacco Use Types Packs/Day Years Used Date Smoking Tobacco: Former Cigarettes 0.5 20 0 08/05/1964 - 08/05/1984 Smokeless Tobacco: Never Alcohol Use Standard Drinks/Week Comments Not Currently 2 (1 standard drink = 0.6 oz pure alcohol) Occasionally; caffeine intake : none B1300 Health Literacy Answer Date Recor ded How often do you need to hav e someone help you when you read instructions, pamphlets, or other written material from your doctor or pharmacy? Rarely 01/04/2025 Humiliation, Afraid, Rape, and Kick questionnair e Answer Date Recorded Within the last year, have y ou been afraid of your partner or ex-partner? No 01/04/2025 Within the last year, have y ou been humiliated or emotionally abused in other ways by your partner or ex-partner? No Within the last year, have y ou been kicked, hit, slapped, or otherwise physically hurt by your partner or ex-partner? No 01/04/2025 Within the last year, have y ou been raped or forced to have any kind of sexual activity by your partner or ex-partner? No 01/04/2025 Social Connection and Isolat ion Panel [NHANES] Answer Date Recorded In a typical week, how many times do you talk on the phone with family, friends, or neighbors? Three times a week 01/04/2025 How often do you get togethe r with friends or relatives? Once a week 01/04/2025 How often do you attend chur ch or latter-day services? More than 4 times per year 01/04/2025 Do you belong to any clubs o r organizations such as jehovah's witness groups, unions, fraternal or athletic groups, or school groups? Yes 01/04/2025 How often do you attend meet ings of the clubs or organizations you belong to? More than 4 times per year 01/04/2025 Are you , , di vorced, , never , or living with a partner? 01/04/2025 AUDIT-C Answer Date Recorded Q1: How often do you have a drink containing alc ohol? Monthly or less 01/04/2025 Q2: How many drinks containi ng alcohol do you have on a typical day when you are drinking? 1 or 2 01/04/2025 Q3: How often do you have si x or more drinks on one occasion? Never 01/04/2025 Overall Financial Resource Strain (CARDIA) Answe r Date Recorded How hard is it for you to pa y for the very basics like food, housing, medical care, and heating? Not hard at all 01/04/2025 PHQ-2 Answer Date Recorded Patient Health Questionnaire-2 Score 0 01/04/2025 [facility] of Occupat ional Health - Occupational Stress Questionnaire Answer Date Recorded Do you feel stress - tense, restless, nervous, or anxious, or unable to sleep at night because your mind is troubled all the time - these days? Not at all 01/04/2025 Exercise Vital Sign Answer Date Recorde d On average, how many days pe r week do you engage in moderate to strenuous exercise (like a brisk walk)? 4 days 01/04/2025 On average, how many minutes do you engage in exercise at this level? 20 min 01/04/2025 Hunger Vital Sign Answer Date Recorded Within the past 12 months, y ou worried that your food would run out before you got the money to buy more. Never true 01/05/20 25 Within the past 12 months, t he food you bought just didn't last and you didn't have money to get more. Never true 01/04/2025 PRAPARE - Transportation Answer Date Re corded In the past 12 months, has l ack of transportation kept you from medical appointments or from getting medications? No 09/2024 In the past 12 months, has l ack of transportation kept you from meetings, work, or from getting things needed for daily living? No 01/04/2025 Housing Stability Vital Sign Answer Deny e [...] place to sleep or slept in a penitentiary (including now)? No 10/15/2023 Housing Stability Vital Sign Answer Deny e Recorded In the last 12 months, was t here a time when you were not able to pay the mortgage or rent on time? No 01/04/2025 In the past 12 months, how m any times have you moved where you were living? 0 01/04/2025 At any time in the past 12 m [facility], were you homeless or living in a penitentiary (including now)? No 01/04/2025 Sex and Gender Information Value Date Recorded Sex Assigned at Not on file Legal Sex Male 6:47 PM EDT Gender Identity Not on file Sexual Orientation Not on file documented as of this encounter Plan of Treatment Not on file documented as of this encounter Procedures Procedure Name Priority Date/Time Associated Diagnosis Comments PROTHROMBIN TIME-INR Routine 2025 10:43 AM EDT documented in this encounter Results * (ABNORMAL) Protime-INR (2025 10:43 AM EDT) INR 2.7(H) [facility] Comment: Reference Range 0.9-1.1 Moderate-intensity Warfarin Therapy 2.0-3.0 Higher-intensity Warfarin Therapy 3.0-4.0 PT 26.6(H) 9.0 - 11.5 sec [facility] Comment: For additional information, please refer to http://education.Mailjet/faq/UFF859 (This link is being provided for informational/ educational purposes only.) 2025 10:4 3 AM EDT 2025 10:43 AM EDT Narrative Resulting Agency Comment Performing Organization Information Site ID: [id number] Name: [facility] Address: [address] [place] [address], [address] [place] [id number] Director: Geogres Yin MD Jarred Mendoza MD LAB BLOOD ORDERABLES Final R esult Performing Organization Address City/State/[facility] Co de Phone Number [facility] documented in this encounter Visit Diagnoses Not on filedocumented in this encounter Additional Health Concerns Assessment Noted Time A fall risk assessment has been complete d for the patient 01/22/2023 12:41 PM EDT documented as of this encounter Care Teams Public Health Teacher Relationship Specialty Start Date End Date Jarred Mendoza MD [address] [address] PCP - ACO Reach 12/27/22 Jarred Mendoza MD [address] [address] PCP - General Family Medicine 01/03/23 Kellie Odom LPN [address] [place] [address] Licensed Practical Nurse Family Medicine 01/03/23 Chelsea Schrader LPN [address] [place] [facility] 110 [place] [address] 11/03/24 Matthew Bustos DO [address] [place] [address] Referring Physician Orthopaedic Surgery 01/17/25 Domenico Gipson MD [address] [facility] [address] [place] [address] Referring Physician Urology 01/17/25 Juan Cook DO [address] [place] [address] Referring Physician Otolaryngology 01/17/25 documented as of this encounter
--- OUTSIDE RECORDS SUMMARY | 2025-04-06 16:10 | XMS_ITS | Encounter Summary ---
Author Organization [facility] Address [address] [place] [address] Care Team Providers Care Commercial Real Estate Attorney Name Role Phone Jarred Mendoza MD Unavailable [phone] Jarred Mendoza MD Primary Care Provider [phone] Kellie Odom SECTION FOREST FIRE WARDEN Unavailable Chelsea Schrader SECTION FOREST FIRE WARDEN Unavailable Matthew Bustos DO Unavailable [phone] Domenico Gipson MD Unavailable [phone] BraydongaurangJuan DO Unavailable [phone] Encounter Details Date Type Department Care Team (Late st Contact Info) Description 07/18/2023 Orders Only [facility] 521 Family Medicine [address] [facility] [place] [address] Jarred Mendoza MD 112 [facility] [address] [place] [address] (Fax) Social History Tobacco Use Types Packs/Day Years [...] often do you attend chur ch or taoist services? Never 01/22/2023 Do you belong to any clubs o r organizations such as orthodox groups, unions, fraternal or athletic groups, or [...] Recorded Patient Health Questionnaire-2 Score 0 05/08/2023 [facility] [place] of Occupat ional Health - Occupational Stress [...] place to sleep or slept in a prison (including now)? No 01/22/2023 Sex and Gender [...] documented as of this encounter Care Teams Commercial Real Estate Attorney Relationship Specialty Start Date End Date Jarred Mendoza MD [address] [address] PCP - ACO Reach 12/27/22 Jarred Mendoza MD [address] [address] PCP - General Family Medicine 01/03/23 Kellie Odom LPN [address] [place] [address] Licensed Practical Nurse Family Medicine 01/03/23 Chelsea Schrader LPN [address] [facility] 110 [place] [address] 11/03/24 Matthew Bustos DO [address] [place] [address] Referring Physician Orthopaedic Surgery 01/17/25 Domenico Gipson MD [address] [facility] [address] [place] [address] Referring Physician Urology 01/17/25 Juan Cook DO [address] [place] [address] Referring Physician Otolaryngology 01/17/25 documented as of this encounter
--- OUTSIDE RECORDS SUMMARY | 2025-04-06 16:10 | XMS_ITS | Encounter Summary ---
Author Organization [facility] Address [address] [place] [address] Care Team Providers Care Explosive Operator Bomb Name Role Phone Jarred Mendoza MD Unavailable [phone] Jarred Mendoza MD Primary Care Provider [phone] Kellie Odom WEB SIZER Unavailable Chelsea Schrader WEB SIZER Unavailable Matthew Bustos DO Unavailable [phone] Domenico Gipson MD Unavailable [phone] BraydongaurangJuan DO Unavailable [phone] Encounter Details Date Type Department Care Team (Late st Contact Info) Description 05/01/2023 Abstract [facility] 521 Family Medicine [address] [facility] [place] [address] Jarred Mendoza MD 112 [facility] [address] [place] [address] Social History Tobacco Use Types Packs/Day Years [...] often do you attend chur ch or judaism services? Never 01/22/2023 Do you belong to any clubs o r organizations such as latter day groups, unions, fraternal or athletic groups, or [...] Date Recorded Patient Health Questionnaire-2 Score 0 01/03/2023 [facility] [place] of Occupat ional Health - Occupational Stress [...] place to sleep or slept in a fdc (including now)? No 01/22/2023 Sex and Gender [...] documented as of this encounter Care Teams Explosive Operator Bomb Relationship Specialty Start Date End Date Jarred Mendoza MD [address] [address] PCP - ACO Reach 12/27/22 Jarred Mendoza MD [address] [address] PCP - General Family Medicine 01/03/23 Kellie Odom LPN [address] [place] [address] Licensed Practical Nurse Family Medicine 01/03/23 Chelsea Schrader LPN [address] [facility] 110 [place] [address] 11/03/24 Matthew Bustos DO [address] [place] [address] Referring Physician Orthopaedic Surgery 01/17/25 Domenico Gipson MD [address] [facility] [address] [place] [address] Referring Physician Urology 01/17/25 Juan Cook DO [address] [place] [address] Referring Physician Otolaryngology 01/17/25 documented as of this encounter
--- OUTSIDE RECORDS SUMMARY | 2025-04-06 16:10 | XMS_ITS | Encounter Summary ---
Author Organization [facility] Address [address] [place] [address] Care Team Providers Care Trade Clerk Name Role Phone Jarred Mendoza MD Unavailable [phone] Jarred Mendoza MD Primary Care Provider [phone] Kellie Odom LPN Unavailable Chelsea Schrader LPN Unavailable Matthew Bustos DO Unavailable [phone] Domenico Gipson MD Unavailable [phone] Juan Cook DO Unavailable [phone] Encounter Details Date Type Department Care Team (Late st Contact Info) Description 03/31/2025 Patient Outreach [facility] [address] [place] [address] Chelsea Schrader LPN [address] [facility] 110 [place] [address] Social History Tobacco Use Types Packs/Day Years [...] week 01/04/2025 How often do you attend [facility] or faith services? More than 4 times per year 01/04/2025 Do you belong to any clubs o r organizations such as orthodoxy groups, unions, fraternal or athletic groups, or [...] Recorded Patient Health Questionnaire-2 Score 0 01/04/2025 [facility] [place] of Occupat ional Health - Occupational Stress [...] place to sleep or slept in a custodial (including now)? No 10/15/2023 Housing Stability Vital Sign Answer Deny e Recorded In the last 12 months, was t here a time when you were not able to pay the mortgage or rent on time? No 01/04/2025 In the past 12 months, how m any times have you moved where you were living? 0 01/04/2025 At any time in the past 12 m [facility], were you homeless or living in a custodial (including now)? No 01/04/2025 Sex and Gender Information Value Date Recorded Sex Assigned at Not on file Legal Sex Male 6:47 PM EDT Gender Identity Not on file Sexual Orientation Not on file documented as of this encounter Progress Notes * Chelsea Schrader LPN - 03/31/2025 1:33 PM EDT Attempted to call pt to update on INR results. No answer and unable to leave message. Will try again later tomorrow. <April 01, 2025, 10:01 - Chelsea Schrader LPN> Call to pt no answer and unable to leave message. <April 01, 2025, 15:28 - Chelsea Schrader LPN> Pt updated and voices understanding documented in this encounter Plan of Treatment Not on file documented as of this encounter Visit Diagnoses Diagnosis Stage 3a chronic kidney disease (CMS-HCC)- Primary Chronic diastolic heart failure (HCC) Chronic diastolic heart failure documented in this encounter Additional Health Concerns Assessment Noted Time A fall risk assessment has been complete d for the patient 01/22/2023 12:41 PM EDT documented as of this encounter Care Teams Trade Clerk Relationship Specialty Start Date End Date Jarred Mendoza MD [address] [facility] 100 [place] [address] PCP - ACO Reach 12/27/22 Jarred Mendoza MD [address] [facility] 100 [place] [address] PCP - General Family Medicine 01/03/23 Kellie Odom LPN [address] [place] [address] Licensed Practical Nurse Family Medicine 01/03/23 Chelsea Schrader LPN [address] [place] [address] 11/03/24 Matthew Bustos DO [address] [place] [address] Referring Physician Orthopaedic Surgery 01/17/25 Domenico Gipson MD [address] [facility] [address] [place] [address] Referring Physician Urology 01/17/25 Juan Cook DO [address] [place] [address] Referring Physician Otolaryngology 01/17/25 documented as of this encounter
--- OUTSIDE RECORDS SUMMARY | 2025-04-06 16:10 | XMS_ITS | Encounter Summary ---
Author Organization [facility] Address [address] [place] [address] Care Team Providers Care Check Totaler Name Role Phone Jarred Mendoza MD Unavailable [phone] Jarred Mendoza MD Primary Care Provider [phone] Kellie Odom USER EXPERIENCE ARCHITECT Unavailable Chelsea Schrader USER EXPERIENCE ARCHITECT Unavailable Matthew Bustos DO Unavailable [phone] Domenico Gipson MD Unavailable [phone] BraydongaurangJuan DO Unavailable [phone] Encounter Details Date Type Department Care Team (Late st Contact Info) Description 11/13/2023 Orders Only [facility] 521 Family Medicine [address] [facility] [place] [address] Jarred Mendoza MD 112 [facility] [address] [place] [address] Social History Tobacco Use Types Packs/Day Years [...] How often do you attend chur or buddhist services? More than 4 times per year 10/15/2023 Do you belong to any clubs o r organizations such as nondenominational groups, unions, fraternal or athletic groups, or [...] Recorded Patient Health Questionnaire-2 Score 0 09/03/2023 [facility] [place] of Occupat ional Health - Occupational Stress [...] slept in a detention (including now)? No 10/15/2023 Sex and Gender Information Value Date Recorded Sex Assigned at Not on file Legal Sex Male 6:47 PM EDT Gender Identity Not on file Sexual Orientation Not on file documented as of this encounter Plan of Treatment Not on file documented as of this encounter Procedures Procedure Name Priority Date/Time Associated Diagnosis Comments XR CHEST 2 VIEWS Routine 11/13/2023 9:57 AM EDT documented in this encounter Results * XR chest 2 views (11/13/2023 9:57 AM EDT) Anatomical Region Laterality Modality Chest Radiographic Demi ging Jarred Mendoza MD IMG XR PROCEDURES Final Resu lt documented in this encounter Visit Diagnoses Not on filedocumented in this encounter Additional Health Concerns Assessment Noted Time A fall risk assessment has been complete d for the patient 01/22/2023 12:41 PM EDT documented as of this encounter Care Teams Check Totaler Relationship Specialty Start Date End Date Jarred Mendoza MD [address] [place] [address] (Fax) PCP - ACO Reach 12/27/22 Jarred Mendoza MD [address] [place] [address] (Fax) PCP - General Family Medicine 01/03/23 Kellie Odom LPN [address] [place] [address] Licensed Practical Nurse Family Medicine 01/03/23 Chelsea Schrader LPN [address] [place] [address] 11/03/24 Matthew Bustos DO [address] [place] [address] Referring Physician Orthopaedic Surgery 01/17/25 Domenico Gipsno MD [address] [facility] [address] [place] [address] Referring Physician Urology 01/17/25 Juan Cook DO [address] [place] [address] Referring Physician Otolaryngology 01/17/25 documented as of this encounter
--- OUTSIDE RECORDS SUMMARY | 2025-04-06 16:10 | XMS_ITS | Encounter Summary ---
Author Organization [facility] Address [address] [place] [address] Care Team Providers Care Casting Finisher Name Role Phone Jarred Mendoza MD Unavailable [phone] Jarred Mendoza MD Primary Care Provider [phone] Kellie Odom CABLE OPERATOR Unavailable Chelsea Schrader CABLE OPERATOR Unavailable Matthew Bustos DO Unavailable [phone] Domenico Gipson MD Unavailable [phone] BraydongaurangJuan DO Unavailable [phone] Encounter Details Date Type Department Care Team (Late st Contact Info) Description 11/05/2023 Orders Only N[facility] Stoner 521 Family Medicine [address] [facility] [place] [address] Jarred Mendoza MD 112 [facility] [address] [place] [address] Social History Tobacco Use Types [...] How often do you attend chur or denominational services? More than 4 times per year 10/15/2023 Do you belong to any clubs o r organizations such as yazidism groups, unions, fraternal or athletic groups, or [...] Recorded Patient Health Questionnaire-2 Score 0 09/03/2023 [facility] [place] of Occupat ional Health - Occupational Stress [...] place to sleep or slept in a senior care (including now)? No 10/15/2023 Sex and Gender [...] documented as of this encounter Care Teams Casting Finisher Relationship Specialty Start Date End Date Jarred Mendoza MD [address] [address] PCP - ACO Reach 12/27/22 Jarred Mendoza MD 112 [address] [place] [address] (Fax) PCP - General Family Medicine 01/03/23 Kellie Odom LPN [address] [place] [address] Licensed Practical Nurse Family Medicine 01/03/23 Chelsea Schrader LPN [address] [place] [address] 11/03/24 Matthew Bustos DO [address] [place] [address] Referring Physician Orthopaedic Surgery 01/17/25 Domenico Gipson MD [address] [facility] [address] [place] [address] Referring Physician Urology 01/17/25 Juan Cook DO [address] [place] [address] Referring Physician Otolaryngology 01/17/25 documented as of this encounter
--- OUTSIDE RECORDS SUMMARY | 2025-04-06 16:10 | XMS_ITS | Encounter Summary ---
Author Organization [facility] Address [address] [place] [address] Care Team Providers Care Card Processing Clerk Name Role Phone Jarred Mendoza MD Unavailable [phone] Jarred Mendoza MD Primary Care Provider [phone] Kellie Odom LEATHER PRODUCTION MACHINE OPERATOR Unavailable Chelsea Schrader LEATHER PRODUCTION MACHINE OPERATOR Unavailable Matthew Bustos DO Unavailable [phone] Domenico Gipson MD Unavailable [phone] Juan Cook DO Unavailable [phone] Reason for Visit * Reason Onset Date Comments Results 03/31/2025 Encounter Details Date Type Department Care Team (Late st Contact Info) Description 03/31/2025 Results Follow-Up [address] [place] [address] Anayeli Hermosillo GATO Protime-INR Social History Tobacco Use Types Packs/Day Years [...] week 01/04/2025 How often do you attend [facility] or yazdanism services? More than 4 times per year 01/04/2025 Do you belong to any clubs o r organizations such as christian groups, unions, fraternal or athletic groups, or [...] Recorded Patient Health Questionnaire-2 Score 0 01/04/2025 [facility] [place] of Occupat ional Health - Occupational Stress [...] place to sleep or slept in a chcf (including now)? No 10/15/2023 Housing Stability Vital [...] time in the past 12 m [facility], were you homeless or living in a chcf (including now)? No 01/04/2025 Sex and Gender Information Value Date Recorded Sex Assigned at Not on file Legal Sex Male 6:47 PM EDT Gender Identity Not on file Sexual Orientation Not on file documented as of this encounter Miscellaneous Notes * Telephone Encounter - Anayeli Hermosillo MA - 03/31/2025 11:59 AM EDT VO from [facility], INR therapeutic. Continue current dose, recheck one month documented in this encounter Plan of Treatment Not on file documented as of this encounter Visit Diagnoses Not on filedocumented in this encounter Additional Health Concerns Assessment Noted Time A fall risk assessment has been complete d for the patient 01/22/2023 12:41 PM EDT documented as of this encounter Care Teams Card Processing Clerk Relationship Specialty Start Date End Date Jarred Mendoza MD [address] [place] [address] PCP - ACO Reach 12/27/22 Jarred Mendoza MD [address] [place] [address] (Fax) PCP - General Family Medicine 01/03/23 Kellie Odom LPN [address] [place] [address] Licensed Practical Nurse Family Medicine 01/03/23 Chelsea Schrader LPN [address] [place] [address] 11/03/24 Matthew Bustos DO [address] [place] [address] Referring Physician Orthopaedic Surgery 01/17/25 Domenico Gipson MD [address] [facility] [address] [place] [address] Referring Physician Urology 01/17/25 Juan Cook DO [address] [place] [address] Referring Physician Otolaryngology 01/17/25 documented as of this encounter
--- OUTSIDE RECORDS SUMMARY | 2025-04-06 16:10 | XMS_ITS | Encounter Summary ---
Author Organization [facility] Address [address] [facility] [place] [address] Care Team Providers Care Health Data Analyst Name Role Phone Jarred Mendoza MD Unavailable [phone] Jarred Mendoza MD Primary Care Provider [phone] Kellie Odom FRONT END SOFTWARE DEVELOPER Unavailable Chelsea Schrader FRONT END SOFTWARE DEVELOPER Unavailable Matthew Bustos DO Unavailable [phone] Domenico Gipson MD Unavailable [phone] Juan Cook DO Unavailable Encounter Details Date Type Department Care Team (Late st Contact Info) Description 10/25/2023 Abstract [facility] Otolaryngology [address] [place] [address] Juan Cook, DO [address] [place] [address] Social History Tobacco Use Types Packs/Day Years [...] 10/15/2023 How often do you attend chur ch or judaism services? More than 4 times per year 10/15/2023 Do you belong to any clubs o r organizations such as judaism groups, unions, fraternal or athletic groups, or [...] Recorded Patient Health Questionnaire-2 Score 0 09/03/2023 [facility] of Occupat ional Health - Occupational [...] slept in a fdc (including now)? No 10/15/2023 Sex and Gender [...] documented as of this encounter Care Teams Health Data Analyst Relationship Specialty Start Date End Date Jarred Mendoza MD [address] [address] PCP - ACO Reach 12/27/22 Jarred Mendoza MD [address] [place] [address] PCP - General Family Medicine 01/03/23 Kellie Odom LPN [address] [place] [address] Licensed Practical Nurse Family Medicine 01/03/23 Chelsea Schrader LPN [address] [place] [address] 11/03/24 Matthew Bustos DO [address] [facility] [place] [address] Referring Physician Orthopaedic Surgery 01/17/25 Domenico Gipson MD [address] [facility] [address] [place] [address] Referring Physician Urology 01/17/25 Juan Cook DO [address] [place] [address] Referring Physician Otolaryngology 01/17/25 documented as of this encounter
--- OUTSIDE RECORDS SUMMARY | 2025-04-06 16:11 | XMS_ITS | Encounter Summary ---
Author Organization [facility] Address [address] [place] [address] Care Team Providers Care Real Estate Broker Associate Name Role Phone Jarred Mendoza MD Unavailable [phone] Jarred Mendoza MD Primary Care Provider [phone] Kellie Odom MANAGER DELI Unavailable Chelsea Schrader MANAGER DELI Unavailable Matthew Bustos DO Unavailable [phone] Domenico Gipson MD Unavailable [phone] BraydongaurangJuan DO Unavailable [phone] Encounter Details Date Type Department Care Team (Late st Contact Info) Description 09/05/2023 Orders Only [facility] 521 Family Medicine [address] [facility] [place] [address] Jarred Mendoza MD 112 [facility] [address] [place] [address] Social History Tobacco Use Types [...] often do you attend chur ch or restoration services? Never 01/22/2023 Do you belong to [...] Recorded Patient Health Questionnaire-2 Score 0 09/03/2023 [facility] [place] of Occupat ional Health - Occupational Stress [...] place to sleep or slept in a jail (including now)? No 01/22/2023 Sex and Gender [...] documented as of this encounter Care Teams Real Estate Broker Associate Relationship Specialty Start Date End Date Jarred Mendoza MD [address] [address] PCP - ACO Reach 12/27/22 Jarred Mendoza MD [address] [address] PCP - General Family Medicine 01/03/23 Kellie Odom LPN [address] [place] [address] Licensed Practical Nurse Family Medicine 01/03/23 Chelsea Schrader LPN [address] [facility] 110 [place] [address] 11/03/24 Matthew Bustos DO [address] [place] [address] Referring Physician Orthopaedic Surgery 01/17/25 Domenico Gipson MD [address] [facility] [address] [place] [address] Referring Physician Urology 01/17/25 Juan Cook DO [address] [place] [address] Referring Physician Otolaryngology 01/17/25 documented as of this encounter
--- OUTSIDE RECORDS SUMMARY | 2025-04-06 16:11 | XMS_ITS | Encounter Summary ---
Author Organization [facility] Address [address] [place] [address] Care Team Providers Care Emergency Room Rn Name Role Phone Jarred Mendoza MD Unavailable [phone] Jarred Mendoza MD Primary Care Provider [phone] Kellie Odom PARAFFIN PLANT OPERATOR Unavailable Chelsea Schrader PARAFFIN PLANT OPERATOR Unavailable Matthew Bustos DO Unavailable [phone] Domenico Gipson MD Unavailable [phone] BraydongaurangJuan DO Unavailable [phone] Reason for Visit * Reason Comments Med Refill Encounter Details Date Type Department Care Team (Late st Contact Info) Description 01/14/2024 Refill [facility] [address] [place] [address] Jarred Mendoza MD 112 [facility] [address] [place] [address] Benign essential hypertension Social History Tobacco Use Types Packs/Day Years [...] often do you attend chur ch or jehovah's witness services? More than 4 times per year 10/15/2023 Do you belong to any clubs o r organizations such as jew groups, unions, fraternal or athletic groups, or [...] Recorded Patient Health Questionnaire-2 Score 0 09/03/2023 [facility] of Occupat ional Health - Occupational Stress [...] place to sleep or slept in a usp (including now)? No 10/15/2023 Sex and Gender Information Value Date Recorded Sex Assigned at Not on file Legal Sex Male 6:47 PM EDT Gender Identity Not on file Sexual Orientation Not on file documented as of this encounter Miscellaneous Notes * Telephone Encounter - Janice Galvan - 01/14/2024 2:04 PM EDT Patient notified of INR results and to continue current dose. Jose stated he has a procedure being done on . He is going to make an appointment after that is done but he only has a week of his blood pressure meds left and is asking if those can be refilled for him. * Telephone Encounter - Janice Galvan - 01/14/2024 2:03 PM EDT ----- Message from Dr. Jarred Mendoza sent at 01/14/2024 11:34 AM EDT ----- Regarding: INR therapeutic Notify the patient that their INR level is therapeutic. Continue current dose of warfarin, may refill as necessary, and recheck INR level in 1 month. ----- Message ----- From: [facility] Results In Sent: 01/14/2024 4:48 AM EDT To: Jarred Mendoza MD documented in this encounter Plan of Treatment Not on file documented as of this encounter Visit Diagnoses Diagnosis Benign essential hypertension Essential hypertension, benign documented in this encounter Additional Health Concerns Assessment Noted Time A fall risk assessment has been complete d for the patient 01/22/2023 12:41 PM EDT documented as of this encounter Care Teams Emergency Room Rn Relationship Specialty Start Date End Date Jarred Mendoza MD 112 [facility] [address] [place] [address] PCP - ACO Reach 12/27/22 Jarred Mendoza MD 112 [facility] [address] [place] [address] PCP - General Family Medicine 01/03/23 Kellie Odom LPN [address] [place] [address] Licensed Practical Nurse Family Medicine 01/03/23 Chelsea Schrader LPN 112 [facility] 110 [place] [address] 11/03/24 Matthew Bustos DO [address] [place] [address] Referring Physician Orthopaedic Surgery 01/17/25 Domenico Gipson MD [address] [facility] 650 [facility] [address] [place] [address] Referring Physician Urology 01/17/25 Juan Cook DO [address] [place] [address] Referring Physician Otolaryngology 01/17/25 documented as of this encounter
--- OUTSIDE RECORDS SUMMARY | 2025-04-06 16:11 | XMS_ITS | Encounter Summary ---
Author Organization [facility] Address [address] [place] [address] Care Team Providers Care Marbleizer Name Role Phone Jarred Mendoza MD Unavailable [phone] Jarred Mendoza MD Primary Care Provider [phone] Kellie Odom GIS WEB DEVELOPER Unavailable Chelsea Schrader GIS WEB DEVELOPER Unavailable Matthew Bustos DO Unavailable [phone] Domenico Gipson MD Unavailable [phone] Juan Cook DO Unavailable [phone] Encounter Details Date Type Department Care Team (Late st Contact Info) Description 09/16/2023 Clinisync Result Encounter [facility] External Department Unsolicited [...] any clubs o r organizations such as religion groups, unions, fraternal or athletic groups, or [...] Recorded Patient Health Questionnaire-2 Score 0 09/03/2023 [facility] of Occupat ional Health - Occupational [...] place to sleep or slept in a nursing home (including now)? No 01/22/2023 Sex and Gender Information Value Date Recorded Sex Assigned at Not on file Legal Sex Male 6:47 PM EDT Gender Identity Not on file Sexual Orientation Not on file documented as of this encounter Plan of Treatment Not on file documented as of this encounter Procedures Procedure Name Priority Date/Time Associated Diagnosis Comments NM PET/CT SKULL-THIGH SUBQ 09/16/2023 3:39 PM EST documented in this encounter Results * NM PET/CT SKULL-THIGH SUBQ (09/16/2023 3:39 PM EST) Anatomical Region Laterality Modality Other 09/16/2023 3:39 PM EST Narrative 09/17/2023 2:43 PM EST * * *Final Report* * * DATE OF EXAM: Sep 16 2023 3:39PM NRN [id number] - NM PET/CT SKULL-THIGH SUBQ / PROCEDURE REASON: 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 HEAD AND [...] the report reviewed and electronically signed by: AJKOB PIZANO MD on Sep 17 2023 2:41PM EST Thank you for allowing us to participate in the care of your patient. Should there be any questions regarding this interpretation, please call [phone]. If you are unable to reach us at the number above, please feel free to contact [facility] at [phone]. 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 HEAD AND [...] any questions regarding this interpretation, please call [phone]. If you are unable to reach us at the number above, please feel free to contact [facility] at [phone]. [id number]^[email or web address]^ACN us Generic External Data Provider [facility] Final Result documented in this encounter Visit Diagnoses Not on filedocumented in this encounter Additional Health Concerns Assessment Noted Time A fall risk assessment has been complete d for the patient 01/22/2023 12:41 PM EDT documented as of this encounter Care Teams Marbleizer Relationship Specialty Start Date End Date Jarred Mendoza MD [address] [place] [address] PCP - ACO Reach 12/27/22 Jarred Mendoza MD [address] [place] [address] PCP - General Family Medicine 01/03/23 Kellie Odom, GIS WEB DEVELOPER [address] [place] [address] Licensed Practical Nurse Family Medicine 01/03/23 Chelsea Schrader LPN [address] [place] [address] 11/03/24 Matthew Bustos DO [address] [place] [address] Referring Physician Orthopaedic Surgery 01/17/25 Domenico Gipson MD [address] [facility] [address] [place] [address] Referring Physician Urology 01/17/25 Juan Cook DO [address] [place] [address] Referring Physician Otolaryngology 01/17/25 documented as of this encounter
--- OUTSIDE RECORDS SUMMARY | 2025-04-06 16:11 | XMS_ITS | Encounter Summary ---
Author Organization [facility] Address [address] [place] [address] Care Team Providers Care Foot Piece Assembler Name Role Phone Jarred Mendoza MD Unavailable [phone] Jarred Mendoza MD Primary Care Provider [phone] Kellie Odom HEAD INSPECTOR Unavailable Chelsea Schrader HEAD INSPECTOR Unavailable Matthew Bustos DO Unavailable [phone] Domenico Gipson MD Unavailable [phone] BraydongaurangJuan DO Unavailable [phone] Encounter Details Date Type Department Care Team (Late st Contact Info) Description 10/01/2023 Orders Only N[facility]rika Stoner 521 Family Medicine [address] [facility] [place] [address] Jarred Mendoza MD 112 [facility] [address] [place] [address] (Fax) Dental infection (Primary Dx) Social History Tobacco Use Types Packs/Day Years [...] How often do you attend chur or tenriism services? Never 01/22/2023 Do you belong to any clubs o r organizations such as mandaeism groups, unions, fraternal or athletic groups, or [...] Recorded Patient Health Questionnaire-2 Score 0 09/03/2023 [facility] of Occupat ional Health - Occupational [...] slept in a custodial (including now)? No 01/22/2023 Sex and Gender Information Value Date Recorded Sex Assigned at Not on file Legal Sex Male 6:47 PM EDT Gender Identity Not on file Sexual Orientation Not on file documented as of this encounter Plan of Treatment Not on file documented as of this encounter Visit Diagnoses Diagnosis Dental infection- Primary documented in this encounter Additional Health Concerns Assessment Noted Time A fall risk assessment has been complete d for the patient 01/22/2023 12:41 PM EDT documented as of this encounter Care Teams Foot Piece Assembler Relationship Specialty Start Date End Date Jarred Mendoza MD [address] [address] PCP - ACO Reach 12/27/22 Jarred Mendoza MD 112 [address] [place] [address] (Fax) PCP - General Family Medicine 01/03/23 Kellie Odom LPN [address] [place] [address] Licensed Practical Nurse Family Medicine 01/03/23 Chelsea Schrader LPN [address] [place] [address] 11/03/24 Matthew Bustos DO [address] [place] [address] Referring Physician Orthopaedic Surgery 01/17/25 Domenico Gipson MD [address] [facility] [address] [place] [address] Referring Physician Urology 01/17/25 Juan Cook DO [address] [place] [address] Referring Physician Otolaryngology 01/17/25 documented as of this encounter
--- OUTSIDE RECORDS SUMMARY | 2025-04-06 16:11 | XMS_ITS | Clinical Summary ---
Author Organization [facility] Address [address] [place] [address] Care Team Providers Care Product Support Rep Name Role Phone Jarred Mendoza MD Unavailable [phone] Jarred Mendoza MD Primary Care Provider [phone] Kellie Odom WAREHOUSE SHIFT SUPERVISOR Unavailable Chelsea Schrader WAREHOUSE SHIFT SUPERVISOR Unavailable Matthew Bustos DO Unavailable [phone] Domenico Gipson MD Unavailable [phone] Juan Cook DO Unavailable Allergies Active Allergy Reactions Criticality Noted Date Comments Moxifloxacin 01/03/2023 Other Reaction(s): hives Quinolones Unknown 10/11/2023 Other Reaction(s): Hallucinating Sulfa Antibiotics 10/11/2023 Other Reaction(s): Hallucinating Sulfamethoxazole 10/11/2023 Other Reaction(s): Hallucinating Sulfamethoxazole-Trimethopri m 01/03/2023 Other Reaction(s): shut his kidneys down Trimethoprim 10/11/2023 Other Reaction(s): Hallucinating Medications cyanocobalamin (Vitamin B-12) 500 MCG tablet Take 1 tablet by mouth 2 (two) times a week Twice a month Active cholecalciferol (Vitamin D3) 25 MCG (1000 UT) tablet Take 1 tablet by mouth Daily Active Multiple Vitamins-Mineral s (ONE DAILY 50 PLUS PO) Take 1 tablet by mouth Daily Active zinc, chelated 12.5 mg tablet split tablet Take 25 mg by mouth Daily Active magnesium gluconate 250 MG tablet Take 250 mg by mouth Daily 4 Active potassium citrate CR (Urocit-K-10) 10 mEq ER tablet Take 20 mEq by mouth in the morning and 20 mEq before bedtime. 4 Active cephalexin (Keflex) 500 MG capsuleIndicatio ns:Presence of left artificial hip joint Take all 4 capsules one hour before the procedure. 4 capsule 1 4 Active losartan (Cozaar) 100 MG tabletIndication s:Benign essential hypertension Take 1 tablet (100 mg) by mouth Daily 90 tablet 2 4 04/29/20 25 Active Additional Information Patient not taking.Reported on 01/05/2025 warfarin (Coumadin) 6 MG tabletIndication s:Chronic deep vein thrombosis (DVT) of calf muscle vein of right lower extremity (HCC) Take 1 tablet (6 mg) by mouth at bedtime 90 tablet 2 5 Active Multiple Vitamins-Mineral s (CARDIODAILY PO) Take 1 tablet by mouth Daily Active nebivolol (Bystolic) 5 MG tabletIndication s:Benign essential hypertension Take 1 tablet (5 mg) by mouth Daily 90 tablet 1 5 08/14/19 26 Active Active Problems Problem Noted Date Diagnosed Date Presence of artificial hip joint, left 5 Pseudophakia of left eye 12/01/2024 Adverse effect of radiation 02/03/2024 Anticoagulated 05/15/2023 Bladder neck contracture 05/15/2023 Bladder stones 05/15/2023 Adenocarcinoma of prostate 01/03/2023 Benign essential hypertension 01/03/2023 Chronic deep vein thrombosis (DVT) of calf muscle vein of right lower extremity 01/03/2023 Chronic diastolic heart failure 01/03/2023 Early dry stage nonexudative age-related macular degeneration of both eyes 01/03/2023 Gastroesophageal reflux disease without esophagi tis 01/03/2023 Hypertensive nephropathy 01/03/2023 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) 01/03/2023 Obesity (BMI 30.0-34.9) 01/03/2023 Other idiopathic scoliosis, thoracolumbar region 01/03/2023 Stage 3a chronic kidney disease 01/03/2023 Venous insufficiency of right leg 01/03/2023 History of prostate cancer 01/08/2018 Cataract cortical, senile, right 03/28/2016 Ocular hypertension, bilateral 03/28/2016 Resolved Problems Problem Noted Date Diagnosed Date Resolved Date After-cataract of left eye w ith vision obscured 12/01/2024 01/05/2025 Combined forms of age-relate d cataract of left eye 04/14/2024 05/09/2024 Combined forms of age-relate d cataract of right eye 04/14/2024 05/09/2024 Drusen of macula, left 04/14/202405/09 Parathyroid adenoma 11/02/2023 01/06/20 Lumbosacral plexopathy 11/02/202301/26 Pain in left thigh 10/03/2023 Atrophy of quadriceps femoris muscle 10/03/2023 01/27/2024 Asymptomatic microscopic hematuria 05/15/2023 05/28/2023 BPH with urinary obstruction 05/15/2023 01/27/2024 DVT (deep venous thrombosis) 05/15/2023 05/15/2023 History of UTI 05/15/2023 05/28/2023 Kidney stones 05/15/2023 05/28/2023 Serum calcium elevated 01/03/202305/28 Benign neoplasm of cranial nerves 09/10/2007 02/03/2024 Overview (05/15/2023): Presumptive schwannoma or meningioma Encounters Date Type Department Care Team Description 03/31/2025 Patient Outreach [facility] [address] [place] [address] Chelsea Schrader LPN 03/31/2025 Results Follow-Up [place] [address] [place] [address] Anayeli Hermosillo, GATO Protime-INR 2025 External Result Encounter [facility] External Department Unsolicited Jarred Mendoza MD 02/22/2025 Patient Outreach [facility] [address] [place] [address] Chelsea Schrader LPN 02/19/2025 External Result Encounter [facility] External Department Unsolicited Jarred Mendoza MD 02/15/2025 Telephone [facility] [place] [address] [place] [address] Jarred Mendoza MD 01/21/2025 Patient Outreach [facility] [address] [place] [address] Mirella Ureña RN 01/20/2025 External Result Encounter [facility] External Department Unsolicited Jarred Mendoza MD 01/11/2025 Results Follow-Up [facility] [place] [place] [address] Jarred Mendoza MD Comprehensive metabolic panel, Lipid panel 01/05/2025 11:00 AM EDT Office Visit [facility] [place] [address] Jarred Mendoza MD Encounter for Medicare annual wellness exam (Primary Dx); Advance directive in chart; Encounter for screening for other disorder; Screening for alcohol problem; Benign essential hypertension ; Hypertensive nephropathy ; Stage 3a chronic kidney disease (CMS-HCC); Screening for diabetes mellitus (DM); Screening for lipid disorders; Malignant neoplasm of prostate (HCC); Cardiovascular event risk 01/05/2025 Bamboo flowsheet [facility] [place] [place] [address] Jarred Mendoza MD 01/05/2025 Travel 01/04/2025 Travel from Last 3 Months Immunizations Immunization Administration Dates Next Due Pneumococcal Polysaccharide PPSV23 07/15/2017 Family History Medical History Relation Name Comments No Known Problems Brother No Known Problems Daughter CABG Father Tu Chaveztpratibha Cancer Father Tu Chaveztpratibha Colon cancer Father Tu Nottpratibha Prostate cancer Father Tu Nottpratibha Stroke Father Tu Nottpratibha Dementia Mother Netta Nottpratibha Hypertension Mother Netta Nottke No Known Problems Son Relation Name Status Comments Brother 1 brother Daughter Alive 2 daughters Father Tu Curry Mother Netta Curry Alive Son Alive 1 son Social History Tobacco Use Types Packs/Day Years Used Date Smoking Tobacco: Former Cigarettes 0.5 20 0 08/05/1964 - 08/05/1984 Smokeless Tobacco: Never Tobacco Cessation:Counseling Given: Yes Alcohol Use Standard Drinks/Week Comments Not Currently [...] 01/04/2025 How often do you attend chur or episcopal services? More than 4 times per year 01/04/2025 Do you belong to any clubs o r organizations such as scientologist groups, unions, fraternal or athletic groups, or [...] Recorded Patient Health Questionnaire-2 Score 0 01/04/2025 [facility] Occupat ional Health - Occupational Stress [...] place to sleep or slept in a mcc (including now)? No 10/15/2023 Housing Stability Vital Sign Answer Deny e Recorded In the last 12 months, was t here a time when you were not able to pay the mortgage or rent on time? No 01/04/2025 In the past 12 months, how m any times have you moved where you were living? 0 01/04/2025 [facility] or living in a mcc (including now)? No 01/04/2025 Sex and Gender Information Value Date Recorded Sex Assigned at Not on file Legal Sex Male 6:47 PM EDT Gender Identity Not on file Sexual Orientation Not on file Last Filed Vital Signs Vital Sign Reading Time Taken Comments Blood Pressure 130/80 01/05/2025 11:08 AM EDT Pulse 65 01/05/2025 11:08 AM EDT Temperature - - Respiratory Rate - - Oxygen Saturation 99% 01/05/2025 11:08 AM EDT Inhaled Oxygen Concentration - - Weight 111 kg (244 lb 8 oz) 01/05/2025 11:08 AM EDT Height 182.9 cm (6') 01/05/2025 11:08 AM EDT Body Mass Index 33.16 01/05/2025 11:08 AM EDT Plan of Treatment Health Maintenance Due Date Last Done Comments CT Colonography 1950 FIT-DNA 1950 FIT 1950 FOBT 1950 Sigmoidoscopy 1950 Influenza Vaccine (#1) 2025 Medicare Annual Wellness (AWV) 01/05/2026 0 01/05/2025, 01/27/2024, 10/22/2022, Additional history exists Colonoscopy 10/12/2030 10/12/2020, 10/22/2012 Colorectal Cancer Screening 10/12/2030 Pneumococcal Vaccine: 65+ Years Discontinued 7 Procedures Procedure Name Priority Date/Time Associated Diagnosis Comments PROTHROMBIN TIME-INR Routine 2025 10:43 AM EDT PROTHROMBIN TIME-INR Routine 02/19/2025 9:57 AM EDT PROTHROMBIN TIME-INR Routine 01/20/2025 11:23 AM EDT LIPID PANEL Routine 01/06/2025 9:54 AM EDT Benign essential hypertension Screening for lipid disorders COMPREHENSIVE METABOLIC PANEL Routine 01/06/2025 9:54 AM EDT Benign essential hypertension Hypertensive nephropathy Stage 3a chronic kidney disease (CMS-HCC) Screening for diabetes mellitus (DM) COLONOSCOPY Routine 10/12/2020 12:00 PM EST from Last 3 Months or Most Recently Relevant to Health Maintenance Results * (ABNORMAL) Protime-INR (2025 10:43 AM EDT) Only the most recent of3 resultswithin the time period is included. INR 2.7(H) [facility] Comment: Reference Range 0.9-1.1 Moderate-intensity Warfarin Therapy 2.0-3.0 Higher-intensity Warfarin Therapy 3.0-4.0 PT 26.6(H) 9.0 - 11.5 sec [facility] Comment: For additional information, please refer to http://education.KitBoost/faq/NOB130 (This link is being provided for informational/ educational purposes only.) 2025 10:4 3 AM EDT 2025 10:43 AM EDT Narrative Resulting Agency Comment Performing Organization Information Site ID: QPT Name: [facility] Address: [address] [place] [address], [address] [place] [phone] Director: Georges Yin MD us Jarred Mendoza MD LAB BLOOD ORDERABLES Final R esult [facility] * Lipid panel (01/06/2025 9:54 AM EDT) CHOLESTEROL, TOTAL 195 <200 mg/dL [facility] HDL CHOLESTEROL 73 > OR = 40 mg/dL [facility] TRIGLYCERIDES 141 <150 mg/dL [facility] LDL CHOLESTEROL 98 mg/dL (calc) [facility] Comment: Reference range: <100 Desirable range <100 mg/dL for primary prevention; <70 mg/dL for patients with CHD or diabetic patients with > or = 2 CHD risk factors. LDL-C is now calculated using the Bernardo calculation, which is a validated novel method providing better accuracy than the Friedewald equation in the estimation of LDL-C. Levi ESPARZA et al. LA NENA. 2013;310(19): 8624-4206 (http://education.Qwaya/faq/LMO438) CHOL/HDLC RATIO 2.7 <5.0 (calc) [facility] NON HDL CHOLESTEROL 122 <130 mg/dL (calc) [facility] Comment: For patients with diabetes plus 1 major ASCVD risk factor, treating to a non-HDL-C goal of <100 mg/dL (LDL-C of <70 mg/dL) is considered a therapeutic option. Blood Venous blood specimen / Unknown 01/06/2025 9:54 AM EDT 01/06/2025 9:55 AM EDT Narrative [facility] - 01/07/2025 9:47 AM EDT FASTING:YES FASTING: YES Resulting Agency Comment Performing Organization Information Site ID: QPT Name: [facility] Address: [address] [place] [address], [address] [place] [phone] Director: Georges Yin MD Jarred Mendoza MD LAB BLOOD ORDERABLES Final R esult [facility] * Comprehensive metabolic panel (01/06/2025 9:54 AM EDT) [facility] Glucose 90 65 - 99 mg/dL [facility] Comment: Fasting reference interval BUN 23 7 - 25 mg/dL [facility] Creatinine 1.16 0.70 - 1.28 mg/dL [facility] EGFR 67 > OR = 60 mL/min/1. 73m2 [facility] BUN/CREATININE RATIO SEE NOTE: 6 - 22 (calc) [facility] Comment: Not Reported: BUN and Creatinine are within reference range. Sodium 142 135 - 146 mmol/L [facility] Potassium, Bld 4.3 3.5 - 5.3 mmol/L [facility] Chloride 108 98 - 110 mmol/L [facility] Carbon Dioxide 25 20 - 32 mmol/L [facility] Calcium 9.0 8.6 - 10.3 mg/dL [facility] PROTEIN, TOTAL 6.5 6.1 - 8.1 g/dL [facility] ALBUMIN 4.0 3.6 - 5.1 g/dL [facility] GLOBULIN 2.5 1.9 - 3.7 g/dL (calc) [facility] ALBUMIN/GLOBULIN RATIO 1.6 1.0 - 2.5 (calc) [facility] BILIRUBIN, TOTAL 0.8 0.2 - 1.2 mg/dL [facility] ALKALINE PHOSPHATASE 71 35 - 144 U/L [facility] AST 16 10 - 35 U/L [facility] ALT 13 9 - 46 U/L [facility] Blood Venous blood specimen / Unknown 01/06/2025 9:54 AM EDT 01/06/2025 9:55 AM EDT Narrative [facility] - 01/07/2025 9:47 AM EDT FASTING:YES FASTING: YES Resulting Agency Comment Performing Organization Information Site ID: QPT Name: [facility] Address: [address] [place] [address], [address] [place] [phone] Director: Georges Yin MD Jarred Mendoza MD LAB BLOOD ORDERABLES Final R esult Performing Organization Address City/State/[facility] Co de Phone Number [facility] * Colonoscopy (10/12/2020 12:00 PM EST) Anatomical Region Laterality Modality Endoscopy 10/12/2020 12:0 0 PM EST Narrative 10/12/2020 12:00 PM EST PERFORMED AT [facility] LOCATION:[id number] Normal-repeat 5 years Procedure Note CONVERSION, GENERIC - 12/19/2022 PERFORMED AT [facility] LOCATION:[id number] Normal-repeat 5 years Jarred Mendoza MD ENDOSCOPY PROCEDURE ORDERABL ES Final Result from Last 3 Months or Most Recently Relevant to Health Maintenance [place] [phone] A[employer] Advance Directives Documents on File Type Date Recorded Patient Nurse Sitter Expl anation Advance Directives and Living Will 11/30/2021 2021-11-23 Power Of Host Hostess Advance Directives and Living Will 11/30/2021 2021-11-23 Living Wi Care Teams Product Support Rep Relationship Specialty Start Date End Date Jarred Mendoza MD [address] [facility] [address] [place] [address] PCP - ACO Reach 12/27/22 Jarred Mendoza MD [address] [facility] [address] [place] [address] (Fax) PCP - General Family Medicine 01/03/23 Kellie Odom LPN [address] [facility] [address] [place] [address] Licensed Practical Nurse Family Medicine 01/03/23 Chelsea Schrader LPN [address] [facility] [address] [place] [address] 11/03/24 Matthew Bustos DO [address] [place] [address] Referring Physician Orthopaedic Surgery 01/17/25 Domenico Gipson MD [address] [facility] [place] [address] Referring Physician Urology 01/17/25 Juan Cook DO [address] [place] [address] Referring Physician Otolaryngology 01/17/25
[2025-04-06 16:26] LABS: Alanine Aminotransferase 28 U/L (16-63); Albumin Globulin Ratio 1.0; Albumin Level 3.7 g/dL (3.4-5.0); Alkaline Phosphatase 105 U/L (46-116); Anion Gap 13.5; Aspartate Amino Transferase 17 U/L (15-37); Blood Urea Nitrogen 22.0 mg/dL (7.0-18.0); Calcium 9.0 mg/dL (8.5-10.1); Carbon Dioxide 26.4 mmol/L (21.0-32.0); Chloride 105 mmol/L (98-107); Estimated GFR (African America >60 (>=60 mL/min/1.73m^2); Estimated GFR (Non-African Ame 56 (>=60 mL/min/1.73m^2); Globulin 3.8 g/dL; Glucose 115 mg/dL (74-106); Magnesium 1.9 mg/dL (1.8-2.4); Potassium 3.9 mmol/L (3.5-5.1); Sodium 141 mmol/L (136-145); Total Protein 7.5 g/dL (6.4-8.2)
--- NOTE | 2025-04-06 16:34 | CT_ITS ---
The [address] [address] Patient Name: PADMINI LLOYD MRN: [id number] date: 1950 Sex: M Assigned Patient Location: ER Current Patient Location: ER Accession/Order Number: [id number] Exam Date: 04/06/2025 16:22 Report Date: 04/06/2025 17:38 At the request of: SERGIO GARCIA DO Procedure: CT angio head CTA Head and Neck TECHNIQUE: Axial imaging of the head and neck with 2-D and 3-D reconstruction 100 cc of Omnipaque [address] exam was performed using one or more the following dose reduction techniques: Automated exposure control, adjustment of the MA and/or Kv according to patient size, or use of the iterative reconstruction technique. Stenoses were measured using the NASCET criteria. COMPARISON: None HISTORY: Weakness and nausea. Symptoms have now resolved. The visualized aortic arch and great vessels are unremarkable. Subclavian arteries are patent No carotid dissection, critical stenosis or occlusion identified. No vertebral dissection, occlusion or abrupt cut off identified. The carotid siphons and vertebral basilar systems are patent. No intracranial aneurysm, dissection, abrupt cut off or critical stenosis identified.. . CT/CT angio neck IMPRESSION: No occlusion, critical stenosis or dissection of the extracranial or intracranial circulation. Impression dictated by: Fran Knight M.D. 04/06/2025 5:38 PM Dictation Location: [place] [address] Electronically authenticated by: [id number] Y Date: 04/06/2025 17:38
--- NOTE | 2025-04-06 16:34 | CT_ITS ---
The [address] [address] Patient Name: PADMINI LLOYD MRN: [id number] date: 1950 Sex: M Assigned Patient Location: ER Current Patient Location: ER Accession/Order Number: [id number] Exam Date: 04/06/2025 16:22 Report Date: 04/06/2025 17:38 At the request of: SERGIO GARCIA DO Procedure: CT angio head CTA Head and Neck TECHNIQUE: Axial imaging of the head and neck with 2-D and 3-D reconstruction 100 cc of Omnipaque [address] exam was performed using one or more the following dose reduction techniques: Automated exposure control, adjustment of the MA and/or Kv according to patient size, or use of the iterative reconstruction technique. Stenoses were measured using the NASCET criteria. COMPARISON: None HISTORY: Weakness and nausea. Symptoms have now resolved. The visualized aortic arch and great vessels are unremarkable. Subclavian arteries are patent No carotid dissection, critical stenosis or occlusion identified. No vertebral dissection, occlusion or abrupt cut off identified. The carotid siphons and vertebral basilar systems are patent. No intracranial aneurysm, dissection, abrupt cut off or critical stenosis identified.. . CT/CT angio head IMPRESSION: No occlusion, critical stenosis or dissection of the extracranial or intracranial circulation. Impression dictated by: Fran Knight M.D. 04/06/2025 5:38 PM Dictation Location: [place] [address] Electronically authenticated by: [id number] Y Date: 04/06/2025 17:38
--- NOTE | 2025-04-06 16:34 | CT_ITS ---
The [address] [address] Patient Name: PADMINI LLOYD MRN: [id number] date: 1950 Sex: M Assigned Patient Location: ER Current Patient Location: ER Accession/Order Number: [id number] Exam Date: 04/06/2025 16:22 Report Date: 04/06/2025 16:41 At the request of: SERGIO GARCIA DO Procedure: CT head/brain wo con CT BRAIN WITHOUT CONTRAST: CLINICAL HISTORY: vertigo COMPARISON: None TECHNIQUE: Contiguous axial unenhanced images were obtained through the brain. This CT exam was performed using one or more following dose reduction techniques: Automated exposure control, adjustment of the mA and/or kV according to patient size, or use of iterative reconstruction technique. FINDINGS: There is no evidence of midline shift, intra or extra-axial fluid collection, hemorrhage or CT evidence of stroke. Cortical atrophy with chronic microvascular ischemic changes. Posterior fossa appears unremarkable. Visualized intraorbital contents demonstrate no acute findings. Visualized paranasal sinuses are clear. The surrounding soft tissues are normal. CT/CT head/brain wo con IMPRESSION: NO ACUTE INTRACRANIAL ABNORMALITY. Impression dictated by: Andriy Zhao Jr., D.O. 04/06/2025 4:41 PM Dictation Location: [place] [address] Electronically authenticated by: [id number] Y Date: 04/06/2025 16:41
--- OUTSIDE RECORDS SUMMARY | 2025-04-06 16:38 | XMS_ITS | CCD ---
Author Organization [facility] Care Team Providers Care Commercial Accountant Name Role Phone Jarred Arias Primary Care Provider [phone] JARRED ARIAS Primary Care Physician Jarred Arias MD Primary Care Provider Jarred Arias MD Primary Care Provider JARRED ARIAS Primary Care Physician Unavail able RADHA, DR CORINNA Haywood Admitting Unavailable RADHA, DR CORINNA Haywood Attending Unavailable RADHA, DR CORINNA Haywood Consulting Unavailable JUANA ., DR CERVANTES Primary Care Unavailable FALCLIFFORD, HERIBERTO Consulting Unavailable MICHAEL Blanco, DR ALTHEA Mcginnis [...] Blanco, DR ALTHEA Mcginnis Consulting Unavaila ble AGUBOSIMBHARATH Consulting Unavailable KAYCEE FANG Consulting Unavailable RADHA, DR CORINNA Haywood Admitting Unavailable JUANA ., DR CERVANTES Primary Care Unavailable [place], DR CHRISTIAN Beal Consulting Unavailable RADHA, DR CORINNA Haywood Attending Unavailable RADHA, DR CORINNA Haywood Consulting Unavailable MD Domenico Gipson Attending Provider MD Jarred Arias Primary Care Provider [phone] Jarred Arias MD Unavailable Jarred Arias MD Primary Care Provider [phone] Black Kellie DUARTE Unavailable MD Jarred Arias Primary Care Provider DO Juan Cook Attending Provider MD Jarred Arias Primary Care Provider DO Juan Cook Attending Provider MD Jarred Arias Primary Care Provider MD Domenico Gipson Attending Provider DO Juan Cook Attending Provider [phone] Jarred Arias MD Primary Care Provider MD Jarred Arias Primary Care Provider MD Domenico Gipson Attending Provider DO Juan Cook Attending Provider Jarred Arias MD Unavailable Jarred Arias MD Primary Care Provider Jarred Arias MD Unavailable Jarred Arias MD Primary Care Provider [phone] Jarred Arias Primary Care Unavailable Murcek, Juan Attending Unavailable Murcek, Juan Admitting Unavailable Jarred Arias Primary Care Unavailable Britni Soto Admitting Unavailable Britni Soto Attending Unavailable Juana, Jarred Rice Primary Care Unavailable Murcek, Juan Attending Unavailable Braydoncek, Juan Admitting Unavailable Jarred Arias Primary Care Unavailable Murcek, Juan Admitting Unavailable Murcek, Juan Attending Unavailable Juana, Jarred Rice Primary Care Unavailable Murcek, Juan Attending Unavailable Murcek, Juan Admitting Unavailable Domenico Gipson Admitting Unavailable Domenico Gipson Attending Unavailable Jarred Arias Primary Care Unavailable Murcek, Juan Attending Unavailable Murcek, Juan Admitting Unavailable Hemejerry, Jarred Rice Primary Care Unavailable Hemejerry, Jarred Rice Primary Care Unavailable Murcek, Juan Admitting Unavailable MurceJuan thomas Attending Unavailable CookDomenico Admitting Unavailable CookDomenico Attending Unavailable Hemeyer, Jarred Rice Primary Care Unavailable Schrader ADVERTISING STRATEGIST, Chelsea Unavailable Unavailable REMINGTON, KAYE A Referring Unavailable HEMEYER, [facility] Care Unavailab le REMINGTON, KAYE A Attending Unavailable HEMEYER, [facility] Care Unavailab le REMINGTON, KAYE A Admitting Unavailable REMINGTON, KAYE A Attending Unavailable REMINGTON, KAYE A Referring Unavailable HEMEYER, [facility] Primary Care Unavailab le REMINGTON, KAYE A Attending Unavailable HEMEYER, [facility] Care Unavailab le REMINGTON, KAYE A Referring Unavailable HEMEYER, [facility] Care Unavailab le REMINGTON, KAYE A Referring Unavailable HEMEYER, [facility] Primary Care Unavailab le HEMEYER, JARRED J Attending Unavailable POCOS, CHRISTIAN Carmona Referring Unavailable BRINK, NELY Attending Unavailable POCOS, CHRISTIAN Carmona Referring Unavailable BRINKNELY Attending Unavailable POCOS, CHRISTIAN Carmona Referring Unavailable POCOS, CHRISTIAN Carmona Attending Unavailable HEMEYER, JARRED Rice Attending Unavailable BLACKSTONMARIVEL Attending Unavailable POCOS, CHRISTIAN Carmona Referring Unavailable HEMEYER, JARRED Rice Attending Unavailable HEMEYER, JARERD Rice Attending Unavailable MURCEJUAN Thomas Attending Unavailable POCOS, CHRISTIAN Carmona Referring Unavailable POCOS, CHRISTIAN Carmona Attending Unavailable MURCEKJUAN Attending Unavailable POCOS, CHRISTIAN Carmona Referring Unavailable POCOS, CHRISTIAN Carmona Attending Unavailable Schrader ADVERTISING STRATEGIST, Chelsea Unavailable Black ADVERTISING STRATEGIST, Kellie Unavailable Pocos DOChristain Unavailable Domenico Gipson MD Unavailable Murcek Juan VELÁZQUEZ Unavailable [phone] Domenico GIPSON Attending Unavailable COOKDomenico Admitting Unavailable COOK, Domenico Haywood Attending Unavailable COOK, Domenico P Admitting Unavailable COOKDomenico P Attending Unavailable COOK, Domenico P Attending Unavailable COOK, Domenico P Attending Unavailable COOKDomenico P Attending Unavailable COOKDomenico P Attending Unavailable Allergies Allergy Classification Reported Allergen(s) Allergy Type Date of Onset Reaction(s) Facility Quinolones (antibiotic) (1 source) moxifloxacin; Translations: [moxifloxacin] Drug Allergy Hallucinations (finding) [facility] Sulfamethoxazole / Trimethoprim (1 source) Sulfamethoxazole / Trimethoprim; Translations: [sulfamethoxazole- trimethoprim] Drug Allergy History of - kidney disease (context-depende nt category) [facility] Comment on above: pt states the bactri m caused kidney problems when he was in the hospital (18 sources) moxifloxacin; Translations: [MOXIFLOXACIN HCL] Drug Allergy Mental Status Change [facility] (20 sources) Quinolones (Antibiotic); Translations: [QUINOLONES] Drug Intolerance Other: See Comments, Unknown [facility] (20 sources) Sulfamethoxazole / Trimethoprim; Translations: [sulfamethoxazole- trimethoprim] Drug Allergy Mental Status Change, Other: See Comments, History of - kidney disease (context-depende nt category) [facility] Comment on above: pt states the bactri m caused kidney problems when he was in the hospital pt states the bactri m caused kidney problems when he was in the hospital (20 sources) Sulfonamides (Antibiotic); Translations: [SULFA (SULFONAMIDE ANTIBIOTICS)] Drug Allergy Other: See Comments [facility] (20 sources) moxifloxacin; Translations: [moxifloxacin] Drug Allergy Hallucinations (finding) [facility] Hussein Work Phone: (13 sources) Quinolones Drug Intolerance Other: See Comments [facility] (3 sources) moxifloxacin; Translations: [Avelox] Drug Allergy 015 [facility] (1 source) moxifloxacin Drug Allergy [facility] (1 source) Quinolones (Antibiotic) Drug allergy (disorder) [facility] (3 sources) Sulfamethoxazole / Trimethoprim; Translations: [Bactrim] Drug Allergy [facility] (1 source) Sulfonamides (Antibiotic) Drug allergy (disorder) [facility] (20 sources) Sulfamethoxazole; Translations: [sulfamethoxazole] Drug Allergy 023 Hallucinating [facility] (20 sources) Trimethoprim; Translations: [trimethoprim] Drug Allergy Hallucinating [facility] (11 sources) quinolone antibiotics; Translations: [quinolone antibiotics] Drug allergy Mental status change [facility] (1 source) moxifloxacin Drug Allergy [facility] (1 source) Quinolones (Antibiotic) Drug allergy (disorder) [facility] (1 source) Sulfonamides (Antibiotic) Drug allergy (disorder) [facility] Medications Current Medications Medication Drug Class(es) Dates Sig (Normalized) Sig (Original) Acetaminophen (8 sources) Start: 02-03-2025 acetaminophen 500 mg Start Date: 02/03/25 Status: Ordered Repeat number: 1 Start: 10-11-2023 take 2 tablets by mo [facility] once daily Acetaminophen (Acetaminophen Extra Strength) 500 mg tablet Active 1000 MG PO Daily October 11, 2023 1:00am amoxicillin 875 mg oral tablet (1 source) Penicillin-class Antibacterial Start: 03-12-2023 End: 03-22-2023 take 1 tablet by mouth twice daily amoxicillin 875 mg Tab 875 mg = 1 tab(s), Oral, BID, X 10 day(s), # 20 tab(s), Refills(s) 0, Pharmacy: [facility]/pharmacy #[id number], 183, cm, 03/12/23 10:24:00 EDT, Height/Length Dosing, 100, kg, 03/12/23 10:24:00 EDT, Weight Dosing Start Date: 03/12/23 Stop Date: 03/22/23 Status: Ordered benoxinate hydrochloride 4 mg/ml / fluorescein sodium 3 mg/ml ophthalmic solution (2 sources) Diagnostic Dye Start: 12-03-2024 End: 12-04-2024 fluorescein-benoxi sosa 0.3-0.4 % 1 drop (FLURESS) Start: 04-14-2024 End: 04-15-2024 fluorescein-benoxinate 0.3-0 .4 % 1 Drop (FLURESS) cefadroxil 500 mg oral capsule (1 source) Cephalosporin Antibacterial Start: 11-26-2023 End: 11-28-2023 take 1 capsule by mouth every twelve hours cefadroxil 500 mg Cap 500 mg = 1 cap(s), Oral, q12hr, X 2 day(s), # 4 cap(s), Refills(s) 0, Pharmacy: [facility]/pharmacy #[id number], 183, cm, 11/14/23 12:48:00 EDT, Height/Length Dosing, 108, kg, 11/14/23 12:48:00 EDT, Weight Dosing Start Date: 11/26/23 Stop Date: 11/28/23 Status: Ordered cefuroxime 250 mg oral tablet (2 sources) Cephalosporin Antibacterial Start: 04-24-2023 End: 05-04-2023 take 1 tablet by mouth twice daily cefuroxime 250 mg Tab 250 mg = 1 tab(s), Oral, BID, X 10 day(s), # 20 tab(s), Refills(s) 0, [id number], cm, 04/24/23 13:52:00 EDT, Height/Length Dosing, 100, kg, 04/24/23 13:52:00 EDT, Weight Dosing Start Date: 04/24/23 Stop Date: 05/04/23 Status: Ordered Cholecalciferol (20 sources) Vitamin D Start: 02-03-2025 cholecalciferol 25 mcg Start Date: 02/03/25 Status: Ordered Repeat number: 1 Start: 05-07-2023 take 1 tablet by bertram th once daily in the morning Cholecalciferol (Vitamin D3) (Vitamin D3) 25 mcg (1,000 unit) Tablet Active 25 MCG PO Every morning May 07, 2023 12:00am Start: 05-07-2023 take 1 tablet by bertram th every other day Cholecalciferol (Vitamin D3) (Vitamin D3) 25 mcg (1,000 unit) Tablet Active 25 MCG PO every other day May 07, 2023 12:00am docusate sodium 100 mg oral capsule (4 sources) Start: 11-26-2023 take 1 capsule by mouth twice daily as needed for constipation Colace 100 mg Cap 100 mg = 1 cap(s), Oral, BID, PRN for constipation, # 40 cap(s), Refills(s) 0, Pharmacy: [facility]/pharmacy #[id number], 183, cm, 11/14/23 12:48:00 EDT, Height/Length Dosing, 108, kg, 11/14/23 12:48:00 EDT, Weight Dosing Start Date: 11/26/23 Status: Ordered doxycycline hyclate 100 mg oral capsule (6 sources) Tetracyclin e-class Drug Start: 02-13-2024 take 100 mg by mouth twice daily Doxycycline Hyclate Active 100 MG PO Twice daily February 13, 2024 12:00am Start: 04-28-2023 End: 05-08-2023 take 1 capsule by mouth twice daily doxycycline hyclate 100 mg Cap 100 mg = 1 cap(s), Oral, BID, X 10 day(s), # 20 cap(s), Refills(s) 0, Pharmacy: [facility]/pharmacy #[id number], 183, cm, 04/24/23 13:52:00 EDT, Height/Length Dosing, 100, kg, 04/24/23 13:52:00 EDT, Weight Dosing Start Date: 04/28/23 Stop Date: 05/08/23 Status: Ordered Start: 03-12-2023 take 1 capsule by [facility] once daily, then take 1 capsule by mouth once daily doxycycline hyclate 100 mg Cap See Instructions, 1 cap po day prior to procedure, 1 cap po day of procedure, # 2 cap(s), Refills(s) 0, Pharmacy: [facility]/pharmacy #[id number], 183, cm, 03/12/23 10:24:00 EDT, Height/Length Dosing, 100, kg, 03/12/23 10:24:00 EDT, Weight Dosing Start Date: 03/12/23 Status: Ordered Start: 03-28-2022 End: 04-04-2022 take 1 capsule by mouth twice daily doxycycline hyclate 100 mg Cap 100 mg = 1 cap(s), Oral, BID, X 7 day(s), # 14 cap(s), Refills(s) 0, Pharmacy: [facility]/pharmacy #[id number], 183, cm, 02/02/22 9:55:00 EDT, Height/Length Dosing, 100, kg, 01/16/22 11:47:00 EDT, Weight Dosing Start Date: 03/28/22 Stop Date: 04/04/22 Status: Ordered ergocalciferol, vitamin D2, (VITAMIN D2 ORAL) (17 sources) ergocalciferol, vitamin D2, (VITAMIN D2 ORAL) Take by mouth. Active ergocalciferol, vitamin D2, (VITAMIN D2 ORAL) Take by mouth. 0 Active Comment on above: Take by mouth. losartan potassium 100 mg oral tablet (20 sources) Angiotensin 2 Receptor Debbi Start: 9 End: 5 take 1 tablet by mouth once daily losartan (Cozaar) 100 MG tablet Indications: Benign essential hypertension Take 1 tablet (100 mg) by mouth Daily 90 tablet 2 08/02/2024 04/29/2025 Active Comment on above: Take 100 mg by mouth once daily. Magnesium (18 sources) Start: take 250 mg by mouth once daily in the morning Magnesium Active 250 MG PO Every morning May 06, 2023 11:00pm Start: 05-07-2023 take 250 mg by mouth once daily in the morning Magnesium Active 250 MG PO Every morning May 07, 2023 12:00am Magnesium 250 mg tab Take 250 mg by mouth. Active Magnesium 250 mg tab Take 250 mg by mouth. 0 Active Comment on above: Take 250 mg by mouth . magnesium gluconate 250 mg oral tablet (20 sources) Start: 11-11-2023 take 1 tablet by mouth once daily magnesium gluconate 250 MG tablet Take 250 mg by mouth Daily 11/11/2023 Active Multi Vitamin+ (18 sources) Start: 07-09-2019 take 1 tablet by mouth once daily Multi Vitamin+ one tab, Oral, Daily, Refill(s) 0 Start Date: 07/09/19 Status: Ordered Multiple Vitamins-Minerals (CARDIODAILY PO) (6 sources) take 1 tablet by mouth once daily Multiple Vitamins-Minerals (CARDIODAILY PO) Take 1 tablet by mouth Daily Active Multiple Vitamins-Minerals (ONE DAILY 50 PLUS PO) (20 sources) take 1 tablet by mouth once daily Multiple Vitamins-Minerals (ONE DAILY 50 PLUS PO) Take 1 tablet by mouth Daily Active take 1 tablet by bertram th once daily in the morning Multiple Vitamins-Minerals (ONE DAILY 50 PLUS PO) Take 1 tablet by mouth in the morning. Active take 1 tablet by bertram th once daily in the morning Multiple Vitamins-Minerals (ONE DAILY 50 PLUS PO) Take 1 tablet by mouth in the morning. 0 Active Multivitamin capsule (17 sources) take 1 capsule by mo uth once daily Multivitamin capsule Take 1 capsule by mouth once daily. Active take 1 capsule by mouth once miguelito ly Multivitamin capsule Take 1 capsule by mouth once daily. 0 Active Comment on above: Take 1 capsule by mo uth once daily. Multivitamin preparation (8 sources) Start: 05-07-2023 Multivitamin Active 1 TAB PO .3xweek May 07, 2023 12:00am Start: 05-07-2023 take 1 tablet by bertram th once daily in the morning Multivitamin Active 1 TAB PO Every morning May 06, 2023 11:00pm Start: 05-07-2023 take 1 tablet by bertram th once daily in the morning Multivitamin Active 1 TAB PO Every morning May 07, 2023 12:00am nebivolol 5 mg oral tablet (20 sources) Start: 11-16-2024 End: 08-14-2025 take 1 tablet by mouth once daily nebivolol (Bystolic) 5 MG tablet Indications: Benign essential hypertension Take 1 tablet (5 mg) by mouth Daily 90 tablet 1 02/15/2025 08/14/2025 Active Start: 07-22-2023 End: 05-05-2024 take 1 tablet by mouth once daily nebivolol 10 mg Tab 10 mg = 1 tab(s), Oral, Daily, High blood pressure Start Date: 11/11/23 Status: Ordered Repeat number: 1 take 0.5 tablet by out once daily nebivolol (Bystolic) 5 MG tablet Take 0.5 tablets by mouth Daily Active Comment on above: Take 10 mg by mouth every morning. One A Day Men 50 Plus (12 sources) Start: 11-11-2023 take 1 tablet by mouth once daily One A Day Men 50 Plus 1 tab, Oral, Daily, Prophylaxis Start Date: 11/11/23 Status: Ordered Repeat number: 1 Start: 11-11-2023 take 1 tablet by bertram th once daily One A Day Men 50 Plus 1 tab, Oral, Daily, Prophylaxis Start Date: 11/11/23 Status: Ordered oxybutynin chloride 5 mg oral tablet (9 sources) Cholinergic Muscarinic Antagonist Start: 02-13-2024 take 5 mg by mouth twice daily Oxybutynin Chloride Active 5 MG PO Twice daily February 13, 2024 12:00am Start: 05-20-2023 End: 10-11-2023 take 5 mg by mouth twice daily Oxybutynin Chloride Dis continued 5 MG PO Twice daily 24 05May 20, 2023 12:00am October 11, 2023 12:10pm oxyCODONE hydrochloride 5 mg oral tablet (3 sources) Opioid Agonist Start: 11-26-2023 oxyCODONE 5 mg Tab 5 mg = 1 tab(s), Oral, As Directed, 1-2 po q4-6 hrs prn pain Dx: M16.12, z96.642 Duration: 7days, # 40 tab(s), Refills(s) 0, [id number], cm, 11/14/23 12:48:00 EDT, Height/Length Dosing, 108, kg, 11/14/23 12:48:00 EDT, Weight Dosing Start Date: 11/26/23 Status: Ordered phenylephrine hydrochloride 25 mg/ml ophthalmic solution (2 sources) alpha-1 Adrenergic Agonist Start: 12-03-2024 End: 12-04-2024 PHENYLephrine 2.5 % 1 drop (AK-DILATE, AMANDA-SYNEPHRINE) Start: 04-14-2024 End: 04-15-2024 PHENYLephrine 2.5 % 1 Drop ( AK-DILATE, AMANDA-SYNEPHRINE) potassium citrate 10 meq extended release oral tablet (20 sources) Start: 03-03-2025 potassium CITR ATE 10 mEq ER Tab 20 mEq, 2 tab(s), Oral, BID, 120 tab(s), Refill(s) 11, [id number], cm, 06/30/24 14:13:00 EST, Height/Length Dosing, 108.3, kg, 06/30/24 14:13:00 EST, Weight Dosing Start Date: 03/03/25 Status: Ordered Quantity: 120.0 Unit: tab(s) Repeat number: 12 Start: 01-20-2024 take 1 tablet by bertram th in the morning potassium citrate CR (Urocit-K-10) 10 mEq ER tablet Take 20 mEq by mouth in the morning and 20 mEq before bedtime. 01/20/2024 Active Start: 01-20-2024 potassium CITR ATE 10 mEq ER Tab 20 mEq, 2 tab(s), Oral, BID, 120 tab(s), Refill(s) 11, [facility]/pharmacy #[id number], 183, cm, 01/17/24 8:36:00 EDT, Height/Length Dosing, 108, kg, 01/17/24 8:36:00 EDT, Weight Dosing Start Date: 01/20/24 Status: Ordered Quantity: 120.0 Unit: tab(s) Repeat number: 12 take 10 mEq by mouth twice daily potassium citrate ER (UROCIT-K) 10 mEq (1,080 mg) Take 2,160 mg by mouth two times a day. Active tamsulosin hydrochloride 0.4 mg oral capsule (1 source) alpha-Adrenergic Debbi Start: 11-18-2023 End: 12-18-2023 take 1 capsule by mouth once daily tamsulosin 0.4 mg Cap 0.4 mg = 1 cap(s), Oral, Daily, X 30 day(s), # 30 cap(s), Refills(s) 0, Pharmacy: [facility]/pharmacy #[id number], 183, cm, 11/14/23 12:48:00 EDT, Height/Length Dosing, 108, kg, 11/14/23 12:48:00 EDT, Weight Dosing Start Date: 11/18/23 Stop Date: 12/18/23 Status: Ordered tropicamide 10 mg/ml ophthalmic solution (2 sources) Anticholinergic Start: 12-03-2024 End: 12-04-2024 tropicamide 1 % 1 drop (MYDRIACYL) Start: 04-14-2024 End: 04-15-2024 tropicamide 1 % 1 Drop (MYDR IACYL) vitamin b12 1 mg oral tablet (20 sources) Vitamin B12 Start: 10-11-2023 Cyanocobalamin (Vitamin B-12) (Vitamin B-12) 1,000 mcg tablet Active 1000 MCG PO .2xweek October 11, 2023 1:00am Start: 03-12-2023 Vitamin B12 50 0 mcg, Oral, MonThu, Refills(s) 0, Prophylaxis Start Date: 03/12/23 Status: Ordered Repeat number: 1 Start: 03-12-2023 Vitamin B12 50 0 mcg, Oral, MonThu, Refills(s) 0, Prophylaxis Start Date: 03/12/23 Status: Ordered Start: 03-12-2023 Vitamin B12 Re fills(s) 0 Start Date: 03/12/23 Status: Ordered cyanocobalamin ( Vitamin B-12) 500 MCG tablet Take 1 tablet by mouth 2 (two) times a week Twice a month Active Comment on above: Take 1,000 mcg by mo [facility] two times a week. Vitamin D (20 sources) Start: 07-09-2019 Vitamin D 50,000 International_Unit, Oral, Daily, Refills(s) 0, Prophylaxis Start Date: 07/09/19 Status: Ordered Repeat number: 1 Start: 07-09-2019 Vitamin D 50,0 00 International_Unit, Oral, Daily, Refills(s) 0, Prophylaxis Start Date: 07/09/19 Status: Ordered Start: 07-09-2019 Vitamin D Oral , Daily, Refills(s) 0 Start Date: 07/09/19 Status: Ordered warfarin sodium 6 mg oral tablet (20 sources) Vitamin K Antagonist Start: 05-07-2023 End: 10-11-2023 take 6.5 mg by mouth once daily at bedtime Warfarin Discontinued 0.5 MG PO Daily at bedtime May 07, 2023 12:00am October 11, 2023 12:10pm 6.5mg daily Start: 07-19-2020 End: 12-14-2024 take 1 tablet by mouth at bedtime warfarin (Coumadin) 6 MG tablet Indications: Chronic deep vein thrombosis (DVT) of calf muscle vein of right lower extremity (HCC) Take 1 tablet (6 mg) by mouth at bedtime 90 tablet 2 12/14/2024 Active Start: 07-19-2020 take 6.5 mg by mouth once shantal y warfarin 6 mg Tab 6.5 mg, Oral, Daily, Refills(s) 0 Start Date: 07/19/20 Status: Ordered warfarin sodium (WARFARIN ORAL) Take by mouth daily as directed. As Directed Active take 0.5 tablet by [facility] once daily warfarin (Coumadin) 1 MG tablet Take 0.5 tablets by mouth 1 (one) time each day Take as directed per After Visit Summary. 0 Active warfarin sodium (WARFARIN ORAL) Take by mouth daily as directed. As Directed 0 Active Comment on above: Take by mouth daily as directed. As Directed Zinc (20 sources) Start: 03-12-2023 take 25 mg by mouth once daily Zinc 25 mg, Oral, Daily, Prophylaxis Start Date: 03/12/23 Status: Ordered Repeat number: 1 Start: 03-12-2023 take 25 mg by mouth once daily Zinc 25 mg, Oral, Daily, Prophylaxis Start Date: 03/12/23 Status: Ordered Start: 03-12-2023 take 25 mg by mouth once daily Zinc 25 mg, Oral, Daily Start Date: 03/12/23 Status: Ordered ZINC ORAL Take 2 5 mg by mouth. Active End: 09-17-2023 take 1 tablet by mouth [...] mouth. zinc acetate 25 mg oral capsule (8 sources) Start: 05-07-2023 take 25 mg by mouth once daily in the morning Zinc Acetate Active 25 MG PO Every morning May 07, 2023 12:00am zinc, chelated 12.5 mg tablet split tablet (20 sources) zinc, chelated 1 2.5 mg tablet split tablet Take 25 mg by mouth Daily Active zinc, chelated 1 2.5 mg tablet split tablet Take 25 mg by mouth in the morning. Active zinc, chelated 1 2.5 mg tablet split tablet Take 25 mg by mouth in the morning. 0 Active Completed/Discontinued Medications Medication Drug Class(es) Dates Sig (Normalized) Sig (Original) acetaminophen 325 mg / HYDROcodone bitartrate 5 mg oral tablet (7 sources) Opioid Agonist Start: 05-20-2023 End: 10-11-2023 take 1 tablet by mouth every four to six hours Hydrocodone-Acetam inophen Discontinued 1 TAB PO EVERY 4-6 HOURS 7 2 May 20, 2023 October 11, 2023 12:09pm [id number] actuat albuterol 0.09 mg/actuat metered dose inhaler (11 sources) beta2-Adrenergic Agonist Start: 01-01-2024 End: 11-25-2024 take 2 puff(s) by inhalation every four hours for wheezing albuterol HFA 90 mcg/act inhaler Indications: Wheezing Inhale 2 puffs every 4 (four) hours if needed for wheezing or shortness of breath 18 g 2 01/01/2024 11/25/2024 Discontinued (Therapy completed) cephalexin 500 mg oral capsule (20 sources) Cephalosporin Antibacterial Start: 02-03-2025 Keflex 500 mg Cap 500 mg = 1 cap(s), Oral, As Directed, Pt to take 1 tab the day before procedure and the 2nd tab the day of procedure once completed., # 2 cap(s), Refills(s) 0, Pharmacy: [facility]/pharmacy #[id number], 183, cm, 06/30/24 14:13:00 EST, Height/Length Dosing, 108.3, kg, 06/30/24 14:13:00 EST, Weight Dosing Start Date: 02/03/25 Status: Ordered Quantity: 2.0 Unit: cap(s) Repeat number: 1 Start: 06-09-2024 cephalexin (Ke flex) 500 MG capsule Indications: Presence of left artificial hip joint Take all 4 capsules one hour before the procedure. 4 capsule 1 06/09/2024 Active Start: 12-17-2023 take 1 capsule by [facility] once daily Keflex 500 mg Cap 500 mg = 1 cap(s), Oral, BID, Take 1 cap day prior to procedure and 1 cap day of procedure - afterwards, # 2 cap(s), Refills(s) 0, Pharmacy: [facility]/pharmacy #[id number], 183, cm, 11/14/23 12:48:00 EDT, Height/Length Dosing, 108, kg, 11/14/23 12:48:00 EDT, Weight Dosing Start Date: 12/17/23 Status: Ordered Start: 05-20-2023 End: 10-11-2023 take 500 mg by mouth twice daily Cephalexin Discontinued 500 MG PO Twice daily 05 09May 20, 2023 12:00am October 11, 2023 12:07pm Start: 02-08-2022 End: 02-13-2022 take 1 capsule by mouth every twelve hours Keflex 500 mg Cap 500 mg = 1 cap(s), Oral, q12hr, X 5 day(s), # 10 cap(s), Refills(s) 0, Pharmacy: [facility]/pharmacy #[id number], 183, cm, 02/02/22 9:55:00 EDT, Height/Length Dosing, 100, kg, 01/16/22 11:47:00 EDT, Weight Dosing Start Date: 02/08/22 Stop Date: 02/13/22 Status: Ordered Start: 01-16-2022 take 1 capsule by mo [facility] once daily Keflex 500 mg Cap 500 mg = 1 cap(s), Oral, q12hr, take 1 cap the evening prior to scheduled procedure, take 2nd capsule the day of scheduled procedure, # 2 cap(s), Refills(s) 0, Pharmacy: [facility]/pharmacy #[id number], 183, cm, 01/16/22 11:47:00 EDT, Height/Length [...] 12:00am Start: 07-16-2019 take 1 tablet by [facility] once daily Cranberry one tab, Oral, Daily Start Date: 07/16/19 Status: Ordered End: 11-21-2022 CRANBERRY two times a week. 11/21/2022 Discontinued (Course of therapy completed) End: 11-21-2022 CRANBERRY two times a week. 0 11/21/2022 Discontinued (Course of therapy completed) CRANBERRY two ti mes a week. 0 Active Comment on above: two times a week. gentamicin 3 mg/ml ophthalmic solution (5 sources) Start: 04-14-2024 End: 12-03-2024 take 1 drop(s) into the eye(s) four times daily gentamicin (GENTAK) 0.3 % ophthalmic solution One drop in the OPERATIVE EYE only four times a day starting the day before surgery and for three days after 15 mL 04/14/2024 12/03/2024 Discontinued (Course of therapy completed) iv contrast (will be provided with radiology [...] in the MR contrast administration guidelines link ketorolac tromethamine 5 mg/ml ophthalmic solution (6 sources) Nonsteroidal Anti-inflammatory Drug, Cyclooxygenase Inhibitor Start: 05-20-2024 End: 12-03-2024 keTORolac (ACULAR) 0.5 % ophthalmic solution Use one drop in operative eye as directed by Dr. Kent starting tomorrow. 5 mL 05/20/2024 12/03/2024 Discontinued (Course of therapy completed) prednisoLONE acetate 10 mg/ml ophthalmic suspension (6 sources) Corticosteroid Start: 05-20-2024 End: 12-03-2024 prednisoLONE acetate (PRED FORTE) 1 % ophthalmic suspension Use one drop in operative eye as directed by Dr. Kent starting tomorrow. 05/20/2024 12/03/2024 Discontinued (Course of therapy completed) Spacer/Aero-Holding Chambers (BreatheRite Tanesha Spacer Adult) misc (13 sources) Start: 01-01-2024 End: 11-25-2024 Spacer/Aero-Holding Chambers (BreatheRite Tanesha Spacer Adult) misc Indications: Wheezing 2 puffs 4 (four) times a day as needed (sob and cough) 1 each 01/01/2024 11/25/2024 Discontinued (Therapy completed) Start: 01-01-2024 Spacer/Aero-Ho lding Chambers (BreatheRite Tanesha Spacer Adult) misc Indications: Wheezing 2 puffs 4 (four) times a day as needed (sob and cough) 1 each 01/01/2024 Active Problems Active Problems Problem Classification Problem Date Documented Da te Episodic/Chronic Aortic; peripheral; and visceral artery aneurysms (2 sources) Ectasia of thoracic aorta; Translations: [Thoracic aortic ectasia] 09-13-2023 Chronic Cancer of prostate (20 sources) Malignant tumor of prostate; Translations: [Malignant neoplasm of prostate] Onset: 7 10-23-2016 Chronic Cancer; other and unspecified primary (6 sources) Malignant tumor of orbit; 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] Chronic Cancer; other and unspecified primary (4 sources) Malignant neoplasm of left orbit; 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] Onset: 2 Chronic Cataract (20 sources) Bilateral age-related nuclear cataracts; Translations: [Age-related nuclear cataract, bilateral] Onset: 6 Resolved: 5 01-03-2023 Chronic Chronic kidney disease (20 sources) Chronic kidney disease stage 3A ; Translations: [Stage 3a chronic kidney disease (HCC)] Onset: 3 01-03-2023 Chronic Congestive heart failure; nonhypertensive (20 sources) Chronic diastolic heart failure; Translations: [Chronic diastolic (congestive) heart failure] Onset: 3 01-03-2023 Chronic Esophageal disorders (20 sources) Gastroesophageal reflux disease without esophagitis; Translations: [Gastro-esophageal reflux disease without esophagitis] Onset: 3 01-03-2023 Chronic Essential hypertension (20 sources) Hypertensive disorder; Translations: [Essential (primary) hypertension] Onset: 2 07-09-2019 Chronic Genitourinary symptoms and ill-defined conditions (20 sources) Male urinary stress incontinence 08-01-2021 Chronic Glaucoma (20 sources) Ocular hypertension; Translations: [Ocular hypertension, bilateral] Onset: 6 01-03-2023 Chronic Headache; including migraine (1 source) Headache; including migraine; Translations: [Headache, unspecified] Onset: 4 Hypertension with complications and secondary hypertension (20 sources) Hypertensive renal disease; Translations: [Hypertensive chronic kidney disease with stage 1 through stage 4 chronic kidney disease, or unspecified chronic kidney disease] Onset: 3 01-03-2023 Chronic Non-Hodgkin`s lymphoma (20 sources) Follicular non-Hodgkin's lymphoma, small cleaved cell (clinical); Translations: [Follicular lymphoma grade I, extranodal and solid organ sites] Onset: 3 Resolved: 3 09-05-2023 Chronic Other bone disease and musculoskeletal deformities (20 sources) Idiopathic scoliosis of thoracic and lumbar spine; Translations: [Other idiopathic scoliosis, thoracolumbar region] Onset: 3 09-13-2023 Chronic Other connective tissue disease (8 sources) Hip joint prosthesis present; Translations: [Presence of left artificial hip joint] Onset: 5 05-27-2024 Chronic Other connective tissue disease (2 sources) History of total hip arthroplasty; Translations: [Presence of left artificial hip joint] 11-25-2024 Chronic Other diseases of bladder and urethra (10 sources) Bladder neck obstruction; Translations: [Bladder-neck obstruction] Onset: 3 Chronic Other diseases of bladder and urethra (20 sources) Contracture of bladder neck; Translations: [Bladder-neck obstruction] Onset: 3 08-28-2022 Chronic Other diseases of bladder and urethra (1 source) Bladder-neck obstruction; Translations: [BLADDER-NECK OBSTRUCTION] Onset: 2 Chronic Other diseases of bladder and urethra (7 sources) Bladder outlet obstruction; Translations: [Bladder-neck obstruction] [...] lung; Translations: [Solitary pulmonary nodule] Episodic Other lower respiratory disease (1 source) Multiple nodules of lung; Translations: [Other nonspecific abnormal finding of lung field] 03-15-2021 Episodic Other male genital disorders (5 sources) Disorder of prostate; Translations: [Other specified disorders of prostate] Onset: 4 Episodic Other nervous system disorders (2 sources) Spinal cord disease; Translations: [Disease of spinal cord, unspecified] 09-13-2023 Chronic Other non-traumatic joint disorders (1 source) Hip pain; Translations: [Pain in left hip] 09-18-2023 Episodic Other nutritional; endocrine; and metabolic disorders (20 sources) Obese class I; Translations: [Obesity, unspecified] Onset: 3 01-03-2023 Chronic Other nutritional; endocrine; and metabolic disorders (1 source) Hypercalcemia; Translations: [Hypercalcemia] Onset: 4 Chronic Other screening for suspected conditions (not mental disorders or infectious disease) (6 sources) Patient encounter status; Translations: [Encounter for screening for other disorder] 12-30-2024 Episodic Phlebitis; thrombophlebitis and thromboembolism (20 sources) Thromboembolism of vein; Translations: [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] Onset: 3 09-13-2023 Chronic Residual codes; unclassified (2 sources) History of parathyroidectomy; Translations: [Other specified postprocedural states] 05-12-2024 Episodic Residual codes; unclassified (2 sources) Active advance directive (copy within chart) ; Translations: [Other specified health status] 12-30-2024 Episodic Residual codes; unclassified (2 sources) Cardiovascular event risk; Translations: [Other specified personal risk factors, not elsewhere classified] 01-17-2025 Episodic Retinal detachments; defects; vascular occlusion; and retinopathy (20 sources) Nonexudative age-related macular degeneration; Translations: [Nonexudative age-related macular degeneration, bilateral, early dry stage] Onset: 3 Resolved: 4 01-03-2023 Chronic Screening and history of mental health and substance abuse codes (3 sources) Personal history of nicotine dependence; Translations: [Patient encounter status] Onset: 2 12-30-2024 Episodic Spondylosis; intervertebral disc disorders; other back problems (2 sources) Lumbar radiculopathy; Translations: [Radiculopathy, lumbar region] 09-13-2023 Episodic Unclassified (20 sources) Asymptomatic microscopic hematuria 08-01-2021 Unclassified (20 sources) Drug therapy finding 07-16-2019 Unclassified (1 source) CONTACT W/AND (SUSP) EXPOS COVID-19; Translations: [CONTACT W/AND (SUSP) EXPOS COVID-19] Onset: 2 Unclassified (7 sources) Calcification of prostate 01-17-2024 Unclassified (1 source) Encounter for preprocedural laboratory examination; Translations: [Encounter for preprocedural laboratory examination] Onset: 4 Urinary tract infections (20 sources) Urinary tract infectious disease; Translations: [Urinary tract infection, site not specified] Onset: 3 Episodic Past or Other Problems Problem Classification Problem Date Documented Da te Episodic/Chronic Calculus of urinary tract (20 sources) Calculus in bladder; Translations: [Urinary bladder stone] Onset: 03-14-2022 Resolved: 05-28-2023 Episodic Cancer of prostate (20 sources) History of malignant neoplasm of prostate; Translations: [Personal history of malignant neoplasm of prostate] Onset: 01-08-2018 Episodic Genitourinary symptoms and ill-defined conditions (20 sources) Dysuria; Translations: [Increased frequency of urination] Onset: 12-29-2021 Resolved: 05-28-2023 07-09-2019 Episodic Hyperplasia of prostate (20 sources) Benign prostatic hypertrophy with outflow obstruction; Translations: [Benign prostatic hyperplasia with lower urinary tract symptoms] Onset: 12-29-2021 Resolved: 01-27-2024 07-19-2020 Chronic Other aftercare (1 source) care home (current) use of anticoagulants; Translations: [HALFWAY CURRNT USE ANTICOAGULANTS] Onset: 03-16-2022 Episodic Other aftercare (1 source) Other manager terminal (current) drug therapy; Translations: [OTH DOUBLE NEEDLE OPERATOR LOCKSTITCH CURRENT DRUG THERAPY] Onset: 03-16-2022 Episodic Other aftercare (20 sources) Drug therapy finding; Translations: [care home (current) use of anticoagulants] Onset: 05-15-2023 05-15-2023 Episodic Other and unspecified benign neoplasm (20 sources) Benign neoplasm of cranial nerve; Translations: [Benign neoplasm of cranial nerves] Onset: 09-10-2007 Resolved: 02-03-2024 09-11-2007 Chronic Other and unspecified benign neoplasm (20 sources) Parathyroid adenoma; Translations: [Benign neoplasm of parathyroid gland] Onset: 11-02-2023 Resolved: 01-05-2025 11-02-2023 Episodic Other connective tissue disease (20 sources) Atrophy of quadriceps femoris muscle; Translations: [Muscle wasting and atrophy, not elsewhere classified, unspecified thigh] Onset: 10-03-2023 Resolved: 01-27-2024 09-13-2023 Episodic Other connective tissue disease (20 sources) Pain of left thigh; Translations: [Pain in left thigh] Onset: 10-03-2023 Resolved: 01-27-2024 01-27-2024 Episodic Other diseases of veins and lymphatics (20 sources) Venous insufficiency of leg; Translations: [Venous insufficiency (chronic) (peripheral)] Onset: 01-03-2023 01-03-2023 Episodic Other injuries and conditions due to external causes (20 sources) Radiation sickness, unspecified, initial encounter; Translations: [Effects of radiation, unspecified] Onset: 02-03-2024 02-03-2024 Episodic Other male genital disorders (1 source) Other specified disorders of prostate; Translations: [Other specified disorders of prostate] Onset: 02-13-2024 Episodic Other nervous system disorders (20 sources) Lumbosacral plexus neuropathy; Translations: [Lumbosacral plexus disorders] Onset: 11-02-2023 Resolved: 01-27-2024 01-27-2024 Chronic Other nutritional; endocrine; and metabolic disorders (20 sources) Hypercalcemia; Translations: [Hypercalcemia] Onset: 01-03-2023 Resolved: 05-28-2023 09-05-2023 Chronic Phlebitis; thrombophlebitis and thromboembolism (20 sources) Deep venous thrombosis; Translations: [Personal history of other venous thrombosis and embolism] Onset: 04-14-2020 Resolved: 05-15-2023 07-09-2019 Episodic Residual codes; unclassified (1 source) Acquired absence of other organs; Translations: [Acquired absence of other organs] Onset: 05-06-2024 Episodic Residual codes; unclassified (1 source) Other specified postprocedural states; Translations: [Other specified postprocedural states] Onset: 05-06-2024 Episodic Unclassified (20 sources) Onset: 01-22-2023 01-22-2023 Results Test Name Value Interpretation Reference Range Facility PROTHROMBIN TIME-INRon 03-27 INR Coag (PPP) [Relative time] 2.7 {INR} High [facility] Comment on above: Result Comment: Refe rence Range 0.9-1.1 Moderate-intensity Warfarin Therapy 2.0-3.0 Higher-intensity Warfarin Therapy 3.0-4.0 Performed By: #### [id number] #### [facility] [address], [address] [place] [address] Nurse Reviewer: Georges Yin MD PT Coag (PPP) [Time] 26.6 s High 9.0-11.5 [facility] Comment on above: Result Comment: For additional information, please refer to [email or web address]/[email or web address] (This link is being provided for informational/ educational purposes only.) Performed By: #### [id number] #### [facility] [address], [address] [place] [address] Nurse Reviewer: Georges Yin MD PT Coag (Bld) [Time]on 03-27 INR Coag (PPP) [Relative time] 2.7 {INR} High [facility] Comment on above: Reference Range 0.9- 1.1 Moderate-intensity Warfarin Therapy 2.0-3.0 Higher-intensity Warfarin Therapy 3.0-4.0 Interpretation and review of laboratory results Abnormal [facility] PT Coag (PPP) [Time] 26.6 s High [facility] Comment on above: For additional infor mation, please refer to [email or web address]/[email or web address] (This link is being provided for informational/ educational purposes only.) Performing Organizat ion Information Site ID: QPT Name: [facility] Address: [address] [place] [address], [address] [place] [address] Director: Georges Yin MD [facility] Ambulatory Visit Summaryon 0 03-15-2025 Ambulatory Visit Summary Ambulatory Visit Summary PADMINI LLOYD :1950 Visit Date:03/15/2025 Ambulatory Visit Instructions Your Diagnosis BPH with urinary obstruction Calcification of prostate H/O prostate cancer History of bladder stone Your Care Team Attending Physician - Domenico GIPSON MD Primary Care Physician - JUANA CALIX, JARRED Rice This Is Your Medications List potassium citrate (potassium CITRATE 10 mEq ER Tab) Contact prescribing physician if questions or concerns acetaminophen cholecalciferol cyanocobalamin (Vitamin B12) ergocalciferol (Vitamin D) losartan (losartan 100 mg Tab) magnesium gluconate (magnesium gluconate 250 mg oral tablet) multivitamin with minerals (One A Day Men 50 Plus) nebivolol (nebivolol 10 mg Tab) warfarin (warfarin 6 mg Tab) zinc sulfate (Zinc) Procedures Performed Cystoscopy (02/22/2025), Laser ablation of prostate (02/13/2024), Flexible cystoscopy (01/17/2024), Total hip replacement (11/26/2023), TURP - Transurethral resection of prostate (05/20/2023), Litholapaxy of bladder calculus (03/14/2022), Cystourethroscopy with dilation of urethral stricture (02/08/2022), Cystoscopy (08/24/2020), Endoscopic transurethral electrovaporization of prostate (05/15/2017), Transrectal biopsy of prostate using ultrasound (US) guidance (09/07/2016), Brachytherapy (2016), CE - Cataract extraction, Colonoscopy. Discharge Vitals Heart Rate (Peripheral) 64 Respiratory Rate 18 Blood Pressure 146/92 Height 183 cm Height 72 in Weight 108.3 kg Weight 238.76 lb BMI 32.34 What to do next Scheduled Follow-Up Appointments Saturday2025 8:15 AM EST With: Domenico GIPSON MD Where: [facility] [address] [place] [address]- You Need to Schedule the Following Appointments Follow Up with Domenico GIPSON MD, URL When: Where: [address] [place] [address]- You Need to Complete the Following PSA Total, Blood, Routine collect, 09/05/25, Order for future visit, Lab Collect, H/O prostate cancer BPH with urinary obstruction, Print Label By Order Location Medications What How Much When Instructions Unchanged potassium citrate (potassium CITRATE 10 mEq ER Tab) 2 Tablets By Mouth 2 times a day Unchanged acetaminophen 500 Milligram Contact prescribing physician if questions or concerns Unchanged cholecalciferol 25 Microgram Contact prescribing physician if questions or concerns Unchanged cyanocobalamin (Vitamin B12) 500 Microgram By [...] Contact prescribing physician if questions or concerns Allergies Avelox (Hallucinations) Bactrim (History of kidney problems) moxifloxacin (Mental Status Change) quinolone antibiotics (Mental status change) sulfamethoxazole-trimethop rim (Unknown) Problems Ongoing - Any problem that you are currently receiving treatment for. Anticoagulated BPH with urinary obstruction Calcification of prostate DVT (deep venous thrombosis) H/O prostate cancer History of bladder stone History of UTI Hypertension Kidney stones Nocturia Stress incontinence, male Patient Survey You may receive a survey via text or e-mail asking about your office visit. Please share your experience with us by completing your survey. We appreciate your feedback and thank you for choosing us for your care. Education Materials Benign Prostatic Hyperplasia Benign prostatic hyperplasia (BPH) is an enlarged prostate gland that is caused by the normal aging process. The prostate may get bigger as a man gets older. The condition is not caused by cancer. The prostate is a walnut-sized gland that is involved in the production of semen. It is located in front of the rectum and below the bladder. The bladder stores urine. The urethra carries stored urine out of the body. An enlarged prostate can press on the urethra. This can make it harder to pass urine. The buil (more content not included)... Normal [facility] Urology Office/Clinic Noteon 03-15-2025 Urology Office/Clinic Note Urology Office/Clinic Note Chief Complaint 1 year follow up HPI Staff 1 month follow up to Cysto 02/22/25 Previous DX: calcification of prostate, bladder neck contracture, BPH w/LUTS, H/O prostate cancer and H/O bladder stone S/P Brachytherapy 11/28/16 *Potassium Citrate 10mEq ER bid Previous PSA 08/28/23 - <0.02 IPSS 4 Denies pain or burning, denies visible blood has a split stream History of Present Illness Tests reviewed: UA, cysto note I have reviewed the previous health record information and history for this patient from Dr. Gipson. I have reviewed and verified the staff HPI to be accurate for this encounter. Review of Systems PHQ Score Initial Depression Screen Score: 0 SCORE ROS - Provider Constitutional: denies weight loss, [...] HPI. Physical Exam Vitals & Measurements HR: 64(Peripheral) RR: 18 BP: 146/92 HT: 183 cm HT: 72 in WT: 108.3 kg WT: 238.76 lb BMI: 32.34 General Appearance: alert, no distress, well nourished, well developed adult. Assessment/Plan Pt here with his today. 1. BPH with urinary obstruction (N40.1: Benign prostatic hyperplasia with lower urinary tract symptoms) Cysto 02/22/25 - Wide caliber stenosis in the mid bulbous urethra. Scope become stuck at the prostatic/membranous urethral junction where there was some calcification present. Able to push through into the prostatic urethra. There was some reformation of calcium mainly on the R lateral lobe but also on the L as well. Outlet was wide open. Trabeculated bladder with some small diverticuli anteriorly. Minimal changes from radiation at the base of the bladder. UA neg. IPSS 4 (9). No BPH meds. Weak stream once in a while. Cannot explain why his sx are intermittent. He will cont sx monitoring for now. If they worsen, may have to repeat laser of prostate calcifications. Pt agreeable. Follow up 6 mos to check sx or sooner if needed. Pt understands and agrees with plan. 2. Calcification of prostate (N42.89: Other specified disorders of prostate) Cysto 02/04/24 - Obstructed prostate from calcifications. Cysto/holmium laser of prostate calcifications 02/13/24. Cysto 02/22/25 - Scope become stuck at the prostatic/membranous urethral junction where there was some calcification present. Able to push through into the prostatic urethra. There was some reformation of calcium mainly on the R lateral lobe but also on the L as well. Taking Potassium Citrate 10 mEq bid. 3. H/O prostate cancer (Z85.46: Personal history of malignant neoplasm of prostate) PSA: 06/21/21 - 0.1 11/13/21 - 0.03 08/21/22 - 0.02 08/28/23 - <0.02 02/03/25 - <0.1 S/p Brachytherapy 11/28/16. Still following w/ Dr. Garcia for hx lymphoma. [1] PSA undetectable. -PSA in 6 mos (since pt f/u anyway) 4. History of bladder stone (Z87.448: Personal history of other diseases of urinary system) No hx of kidney stones. Has had 2 bladder stones in the past, with sx of spraying stream. KUB 05/31/23 - no stones noted. [2] The patient is here with his today. He is aware that his PSA remains 0, status post prostate brachytherapy. The cystoscopy obtained about 6 to 8 weeks ago demonstrated continued calcification but at this point it is not considered very clinically significant although he does have some variation in his urinary flow pattern. They are aware that most likely this calcification/dystrophic calcification will recur despite him being on potassium citrate. No change in dosing indicated. Follow-up in 6 months for continued close follow-up. Should his symptoms become more severe he again will most likely require laser ablation of the dystrophic calcification within the prostatic fossa. They agree with the plan. Follow-up 6 months Repeat PSA before visit. Follow-up With When Contact Information Domenico GIPSON MD, URL [address] [address]- Additional Instructions: 6 mos to check sx with PSA ([facility]) Patient Education Benign Prostatic Hyperplasia I, Wendy Ac, personally scribed for Dr. Gipson on 03/15/2025 08:29:39. . Documentation recorded by the scribe, Wendy Ac, accurately reflects the services(s) I performed and decisions made by me. Authenticated by Dr. Gipson on 03/15/2025 08:32:41. Portions of this record may have been created with voice recognition artificial intelligence software, specifically [employer], [employer] and or [employer]. Substitutions may have oc (more content not included)... Normal [facility] Comment on above: Result Comment: Elec tronically Signed By: Domenico GIPSON MD\.br\Date and Time Signed: 03/15/25 08:33 EDT\.br\Electronically Co-Signed By: Wendy Ac\.br\Date and Time Co-Signed: 03/15/25 08:30 EDT PROTHROMBIN TIME-INRon 02-19 INR Coag (PPP) [Relative time] 2.5 {INR} High [facility] Comment on above: Result Comment: Refe rence Range 0.9-1.1 Moderate-intensity Warfarin Therapy 2.0-3.0 Higher-intensity Warfarin Therapy 3.0-4.0 Performed By: #### [id number] #### [facility] [address] [facility] [address] [facility], [address] [place] [address] Nurse Reviewer: Georges Yin MD PT Coag (PPP) [Time] 25.1 s High 9.0-11.5 [facility] Comment on above: Result Comment: For additional information, please refer to http://education.Slots.com/faq/MXI372 (This link is being provided for informational/ educational purposes only.) Performed By: #### [id number] #### [facility] [address], [address] [place] [address] Nurse Reviewer: Georges Yin MD PT Coag (Bld) [Time]on 02-19 INR Coag (PPP) [Relative time] 2.5 {INR} High [facility] Comment on above: Reference Range 0.9 -1.1 Moderate-intensity Warfarin Therapy 2.0-3.0 Higher-intensity Warfarin Therapy 3.0-4.0 Interpretation and review of laboratory results Abnormal [facility] PT Coag (PPP) [Time] 25.1 s High [facility] Comment on above: For additional infor mation, please refer to http://education.Slots.com/faq/WYF783 (This link is being provided for informational/ educational purposes only.) Performing Organizat ion Information Site ID: QTW Name: [facility] Address: [address] [place] [phone] Director: Martine Mooney [facility] Ambulatory Visit Summaryon 0 02-03-2025 Ambulatory Visit Summary Ambulatory Visit Summary HAROONEsdrasPADMINI THORNE :1950 Visit Date:02/03/2025 Ambulatory Visit Instructions Your Diagnosis BPH with urinary obstruction Bladder neck contracture Calcification of prostate H/O prostate cancer History of bladder stone Your Care Team Attending Physician - APURVA CALIX, Domenico Haywood Primary Care Physician - JUANA CALIX, JARRED Rice This Is Your Medications List doxycycline oxybutynin (oxybutynin 5 mg Tab) potassium citrate (potassium CITRATE 10 mEq ER Tab) Contact prescribing physician if questions or concerns acetaminophen cholecalciferol cyanocobalamin (Vitamin B12) ergocalciferol (Vitamin D) losartan (losartan 100 mg Tab) magnesium gluconate (magnesium gluconate 250 mg oral tablet) multivitamin with minerals (One A Day Men 50 Plus) nebivolol (nebivolol 10 mg Tab) warfarin (warfarin 6 mg Tab) zinc sulfate (Zinc) Procedures Performed Laser ablation of prostate (02/13/2024), Flexible cystoscopy (01/17/2024), Total hip replacement (11/26/2023), TURP - Transurethral resection of prostate (05/20/2023), Litholapaxy of bladder calculus (03/14/2022), Cystourethroscopy with dilation of urethral stricture (02/08/2022), Cystoscopy (08/24/2020), Endoscopic transurethral electrovaporization of prostate (05/15/2017), Transrectal biopsy of prostate using ultrasound (US) guidance (09/07/2016), Brachytherapy (2016), CE - Cataract extraction, Colonoscopy. What to do next Scheduled Follow-Up Appointments Saturday 8:00 AM EDT With: Domenico GIPSON MD Where: [facility] [address] [place] [address]- You Need to Schedule the Following Appointments Follow Up with Domenico GIPSON MD, URL When: Where: [facility] [address] [address]- You Need to Complete the Following PSA Total, Blood, Routine collect, 02/03/25, Order for future visit, Lab Collect, H/O prostate cancer, Print Label By Order Location Medications What How Much When Instructions Unchanged doxycycline 100 Milligram Unchanged oxybutynin (oxybutynin 5 mg Tab) 1 Tablets By Mouth As needed for for urinary discomfort Unchanged potassium citrate (potassium CITRATE 10 mEq ER Tab) 2 Tablets By Mouth 2 times a day Unchanged acetaminophen 500 Milligram Contact prescribing physician if questions or concerns Unchanged cholecalciferol 25 Microgram Contact prescribing physician if questions or concerns Unchanged cyanocobalamin (Vitamin B12) 500 Microgram By [...] Contact prescribing physician if questions or concerns Allergies Avelox (Hallucinations) Bactrim (History of kidney problems) moxifloxacin (Mental Status Change) quinolone antibiotics (Mental status change) sulfamethoxazole-trimethop rim (Unknown) Problems Ongoing - Any problem that you are currently receiving treatment for. Anticoagulated Asymptomatic microscopic hematuria Bladder neck contracture Bladder stones BPH with urinary obstruction Calcification of prostate DVT (deep venous thrombosis) Dysuria Gross hematuria H/O prostate cancer History of bladder stone History of UTI Hypertension Kidney stones Microscopic [...] a light and camera at the end (cy (more content not included)... Normal [facility] CHEMISTRYOrdered By: SYSTEM SYSTEM on 02-03-2025 Prostate specific Ag [Mass/Vol] ng/mL Low 0.1 - 3.5 ng/mL [facility] Comment on above: Interpretive Data: T he concentration of PSA determined by different manufacturers can vary due to differences in assay methods and reagent specificity. Values obtained from different assay methods cannot be used interchangeably. The methodology used for this result was chemiluminescence using Brigida URBANARA's Access Hybritech PSA reagent. PSA Totalon 02-03-2025 PSA Total <0.1 Low 0.1-3.5 [facility] Comment on above: Result Comment: The concentration of PSA determined by different manufacturers can vary due to differences in assay methods and reagent specificity. Values obtained from different assay methods cannot be used interchangeably. The methodology used for this result was chemiluminescence using Brigida Armando's Access Hybritech PSA reagent. Performed By: #### 1 [id number] #### [facility] [address] [place] [address] Urology Office/Clinic Noteon 02-03-2025 Urology Office/Clinic Note Urology Office/Clinic Note HPI Staff 74 year old male here to discuss possible cysto due to having trouble urinating Previous DX: calcification of prostate, bladder neck contracture, BPH w/LUTS, H/O prostate cancer and H/O bladder stone S/P Brachytherapy 11/28/16 Pt. taking Potassium Citrate 10mEq ER bid PVR 0mL IPSS 9 Pt. states he has a spilt stream Pt. having stress incontinence Pt. denies having pain with urination Pt. denies having gross hematuria Pt. having RT. side pain Pt. denies having flank pain History of Present Illness Tests reviewed: reviewed UA. I have reviewed the previous health record information and history for this patient from Dr. Gipson I have reviewed and verified the staff HPI to be accurate for this encounter. There have been no associated fever, chills, flank pain, or blood in the urine. Denies any urinary infections since last encounter. Review of Systems ROS - Provider Constitutional: denies weight loss, denies hot flashes. Eyes: denies eye problems. Gastrointestinal: denies nausea, denies vomiting. Cardiovascular: denies chest pain or angina. Integumentary: no dryness Musculoskeletal: denies musculoskeletal symptoms. ENMT: denies otolaryngeal symptoms. Respiratory: no shortness of breath. Heme/Lymph: denies easy bleeding tendency, denies easy bruising tendency. Psychiatric: no confusion, no anxiety. Genitourinary: See HPI. Physical Exam General Appearance: alert, no distress, well nourished, well developed male. Assessment/Plan 74 yo M here for cysto discussion due to worsening urination. Pt accompanied by today. Portions of this record may have been created with voice recognition artificial intelligence software, specifically Rollbar, Abcodia and or BeautyCon. Substitutions may have occurred due to the inherent limitations of voice recognition and artificial intelligence software. 1. BPH with urinary obstruction (N40.1: Benign prostatic hyperplasia with lower urinary tract symptoms) UA today negative for blood or infection. IPSS 9 (4) PVR 0 mL. States his stream has started to split over the last week to week and a half. Pt states his stream was normal this morning. Pt worried that it will get worse over time. Interested in cysto which he wishes to proceed with. -Will schedule cysto. Prophy ATB sent. The risks and benefits for cystoscopy have been discussed. The risks include bleeding, infection, and irritation of the bladder and urinary channel, among others. The patient, after being informed of procedural details and after questions have been answered, wishes to proceed. Full informed consent has been obtained. Will order Local anesthesia. 2. Bladder neck contracture (N32.0: Bladder-neck obstruction) S/p Cysto/UD 02/08/22 - Bladder neck contracture and a calculus right at the bladder neck. S/p Cysto/Litholapaxy of BNC & fulguration of prostate 03/14/22. S/p Cysto/TURP/holmium laser ablation bladder neck/bladder outlet calcifications 05/20/23. [1] -See #1 3. Calcification of prostate (N42.89: Other specified disorders of prostate) S/p Cysto 02/04/24 - Obstructed prostate from calcifications. S/p Cysto/holmium laser of prostate calcifications 02/13/24. Catheter removed IO 02/18/24. Taking potassium citrate 10mEq ER bid. states pt has been taking med routinely. Pt also reports he stopped drinking Diet Coke and stopped eating chocolate almonds. Has been adding lemon to water. Pt states he has seen a tremendous difference in his stream and getting up during the night. 4. H/O prostate cancer (Z85.46: Personal history of malignant neoplasm of prostate) PSA 06/21/21 - 0.1 11/13/21 - 0.03 08/21/22 - 0.02 08/28/23 - <0.02 S/p Brachytherapy 11/28/16. Still following w/ Dr. Garcia for hx lymphoma. [2] No recent PSA. Will order for pt to have drawn today. -Monitor for PSA results 5. History of bladder stone (Z87.448: Personal history of other diseases of urinary system) No hx of kidney stones. Has had 2 bladder stones in the past, with sx of spraying stream. KUB 05/31/23 - no stones noted. Denies passage of stones since prior OV. Patient is here with his today. He has had a change in his urinary stream. Sometimes there is a split stream and other times not as bad. He does the history of extensive dystrophic calcification throughout the prostatic fossa which requires laser ablation. He has been over a year and a half since his last procedure so he is actually voiding fairly well with a high propensity for this calcification to recur. He has been doing well on his potassium citrate and lemonade and fluid hydration. They both agree to proceed with cystoscopic evaluation to evaluate the entire urethra, ruling out stricture and a more distal location as well as evaluate again the bladder neck. Antibiotic prophylaxis sent to pharmacy. They agree with the plan. Follow-up With When Contact Information Isaiah GIPSON MD (more content not included)... Normal [facility] Comment on above: Result Comment: Elec tronically Signed By: Domenico GIPSON MD\.br\Date and Time Signed: 02/03/25 09:05 EDT\.br\Electronically Co-Signed By: Tiffani Marino\.br\Date and Time Co-Signed: 02/03/25 08:59 EDT PROTHROMBIN TIME-INRon 01-21 INR Coag (PPP) [Relative time] 2.4 {INR} High [facility] Comment on above: Result Comment: Refe rence Range 0.9-1.1 Moderate-intensity Warfarin Therapy 2.0-3.0 Higher-intensity Warfarin Therapy 3.0-4.0 Performed By: #### 8 847 #### [facility] [address], [address] [place] [phone] Nurse Reviewer: Georges Yin MD PT Coag (PPP) [Time] 23.9 s High 9.0-11.5 [facility] Comment on above: Result Comment: For additional information, please refer to http://education.Learnmetrics.Art Loft/faq/CHY730 (This link is being provided for informational/ educational purposes only.) Performed By: #### 8 847 #### [facility] [address], [address] [place] [phone] Nurse Reviewer: Georges Yin MD PT Coag (Bld) [Time]on 01-21 INR Coag (PPP) [Relative time] 2.4 {INR} High [facility] Comment on above: Reference Range 0.9- 1.1 Moderate-intensity Warfarin Therapy 2.0-3.0 Higher-intensity Warfarin Therapy 3.0-4.0 Interpretation and review of laboratory results Abnormal [facility] PT Coag (PPP) [Time] 23.9 s High [facility] Comment on above: For additional infor matrere, please refer to http://education.Slots.com/faq/TCG308 (This link is being provided for informational/ educational purposes only.) Performing Organizat ion Information Site ID: QPT Name: [facility] Address: [address] [place] [address], [address] [place] [address] Director: Georges Yin MD [facility] COMPREHENSIVE METABOLIC PANE [facility] 01-07-2025 Albumin [Mass/Vol] 4.0 g/dL Normal 3.6-5.1 [facility] Comment on above: Performed By: #### 7 600, [id number] #### [facility] [place] [address] Nurse Reviewer: Georges Yin MD Albumin/Globulin [Mass ratio] 1.6 {ratio} Normal 1.0-2.5 [facility] Comment on above: Performed By: #### 7 600, 30495 #### [facility] [place] [address] Nurse Reviewer: Georges Yin MD ALP [Catalytic activity/Vol] 71 U/L Normal 35-144 [facility] Comment on above: Performed By: #### 7 600, 64164 #### [facility] [place] [address] Nurse Reviewer: Georges Yin MD ALT [Catalytic activity/Vol] 13 U/L Normal 9-46 [facility] Comment on above: Performed By: #### 7 600, 66592 #### [facility] [place] [address] Nurse Reviewer: Georges Yin MD AST [Catalytic activity/Vol] 16 U/L Normal 10-35 [facility] Comment on above: Performed By: #### 7 600, 03800 #### [facility] of [address], [address] [place] [address] Nurse Reviewer: Georges Yin MD Bilirubin [Mass/Vol] 0.8 mg/dL Normal 0.2-1.2 [facility] Comment on above: Performed By: #### 7 600, 75500 #### [facility] of [address], [address] [place] [address] Nurse Reviewer: Georges Yin MD BUN/CREATININE RATIO SEE NOTE: Normal 6-22 [facility] Comment on above: Result Comment: Not Reported: BUN and Creatinine are within reference range. Performed By: #### 7 600, 67307 #### [facility] of [address], [address] [place] [address] Nurse Reviewer: Georges Yin MD Calcium [Mass/Vol] 9.0 mg/dL Normal 8.6-10.3 [facility] Comment on above: Performed By: #### 7 600, 78768 #### [facility] of [address], [address] [place] [address] Nurse Reviewer: Georges Yin MD Chloride [Moles/Vol] 108 mmol/L Normal 98-110 [facility] Comment on above: Performed By: #### 7 600, 30615 #### [facility] of [address], [address] [place] [address] Nurse Reviewer: Georges Yin MD CO2 [Moles/Vol] 25 mmol/L Normal 20-32 [facility] Comment on above: Performed By: #### 7 600, 20534 #### [facility] of [address], [address] [place] [address] Nurse Reviewer: Georges Yin MD Creatinine [Mass/Vol] 1.16 mg/dL Normal 0.70-1.[address] [facility] Comment on above: Performed By: #### 7 600, 75991 #### [facility] of [address], [address] [place] [address] Nurse Reviewer: Georges Yin MD GFR/1.73 sq M.predicted among non-blacks MDRD (S/P/Bld) [Vol rate/Area] 67 mL/min/{1.73_m2} Normal > OR = 60 [facility] Comment on above: Performed By: #### 7 600, 70009 #### [facility] [address], [address] [place] [address] Nurse Reviewer: Georges Yin MD Globulin (S) [Mass/Vol] 2.5 g/dL Normal 1.9-3.7 [facility] Comment on above: Performed By: #### 7 600, 13978 #### [facility] [place] [address] Nurse Reviewer: Georges Yin MD Glucose [Mass/Vol] 90 mg/dL Normal 65-99 [facility] Comment on above: Result Comment: Fasting reference interval Performed By: #### 7 600, 61134 #### [facility] [place] [address] Nurse Reviewer: Georges Yin MD Potassium [Moles/Vol] 4.3 mmol/L Normal 3.5-5.3 [facility] Comment on above: Performed By: #### 7 600, 03634 #### [facility] [place] [address] Nurse Reviewer: Georges Yin MD Protein [Mass/Vol] 6.5 g/dL Normal 6.1-8.1 [facility] Comment on above: Performed By: #### 7 600, 66378 #### [facility] of [place] [address] Nurse Reviewer: Georges Yin MD Sodium [Moles/Vol] 142 mmol/L Normal 135-146 [facility] Comment on above: Performed By: #### 7 600, 70494 #### [facility] [place] [address] Nurse Reviewer: Georges Yin MD Urea nitrogen [Mass/Vol] 23 mg/dL Normal 7-25 [facility] Comment on above: Performed By: #### 7 600, 60528 #### [facility] [address], [address] [place] [address] Nurse Reviewer: Georges Yin MD LIPID PANEL, [facility] Cholesterol [Mass/Vol] 195 mg/dL Normal <200 [facility] Comment on above: Order Comment: FASTI NG:YES FASTING: YES Performed By: #### 7 600, 967[address] #### [facility] [address], [address] [place] [address] Nurse Reviewer: Georges Yin MD Cholesterol in HDL [Mass/Vol] 73 mg/dL Normal > OR = 40 [facility] Comment on above: Order Comment: FASTI NG:YES FASTING: YES Performed By: #### 7 600, 11461 #### [facility] [address], [address] [place] [address] Nurse Reviewer: Georges Yin MD Cholesterol in LDL [Mass/Vol] 98 mg/dL Normal [facility] Comment on above: Order Comment: FASTI NG:YES FASTING: YES Result Comment: Refe rence range: <100 Desirable range <100 mg/dL for primary prevention; <70 mg/dL for patients with CHD or diabetic patients with > or = 2 CHD risk factors. LDL-C is now calculated using the Levi-Susana calculation, which is a validated novel method providing better accuracy than the Friedewald equation in the estimation of LDL-C. Levi ESPARZA et al. [place] NENA. 2013;310(19): 8590-7359 (http://education.Seaters.Art Loft/faq/LUC476) Performed By: #### 7 600, 69474 #### [facility] [address], [address] [place] [address] Nurse Reviewer: Georges Yin MD Cholesterol.total/Chol esterol in HDL [Mass ratio] 2.7 {ratio} Normal <5.0 [facility] Comment on above: Order Comment: FASTI NG:YES FASTING: YES Performed By: #### 7 600, 29525 #### [facility] [address], [address] [place] [address] Nurse Reviewer: Georges Yin MD NON HDL CHOLESTEROL 122 mg/dL (calc) Normal <130 [facility] Comment on above: Order Comment: FASTI NG:YES FASTING: YES Result Comment: For patients with diabetes plus 1 major ASCVD risk factor, treating to a non-HDL-C goal of <100 mg/dL (LDL-C of <70 mg/dL) is considered a therapeutic option. Performed By: #### 7 600, 30420 #### [facility] [address], [address] [place] [address] Nurse Reviewer: Georges Yin MD Triglyceride [Mass/Vol] 141 mg/dL Normal <150 [facility] Comment on above: Order Comment: FASTI NG:YES FASTING: YES Performed By: #### 7 600, 01265 #### [facility] [address], [address] [place] [address] Nurse Reviewer: Georges Yin MD Laboratory - Chemistry and C hemistry - challengeon 01-07-2025 Albumin [Mass/Vol] 4 g/dL 3.6 - 5.1 g/dL [facility] Albumin/Globulin [Mass ratio] 1.6 {ratio} [facility] ALP [Catalytic activity/Vol] 71 U/L 35 - 144 U/L [facility] ALT [Catalytic activity/Vol] 13 U/L 9 - 46 U/L [facility] AST [Catalytic activity/Vol] 16 U/L 10 - 35 U/L [facility] Bilirubin [Mass/Vol] 0.8 mg/dL 0.2 - 1 .2 mg/dL [facility] Calcium [Mass/Vol] 9 mg/dL 8.6 - 10. 3 mg/dL [facility] Chloride [Moles/Vol] 108 mmol/L 98 - 11 0 mmol/L [facility] CO2 [Moles/Vol] 25 mmol/L 20 - 32 mmol/L [facility] Creatinine [Mass/Vol] 1.16 mg/dL 0.70 - 1.28 mg/dL [facility] GFR/1.73 sq M.predicted among non-blacks MDRD (S/P/Bld) [Vol rate/Area] 67 mL/min/{1.73_m2} > OR = 60 mL/min/1.7 3m2 [facility] Globulin (S) [Mass/Vol] 2.5 g/dL [facility] Glucose [Mass/Vol] 90 mg/dL 65 - 99 mg/dL [facility] Comment on above: Fasting reference interval Potassium [Moles/Vol] 4.3 mmol/L 3.5 - 5.3 mmol/L [facility] Protein [Mass/Vol] 6.5 g/dL 6.1 - 8.1 g/dL [facility] Sodium [Moles/Vol] 142 mmol/L 135 - 146 mmol/L [facility] Urea nitrogen [Mass/Vol] 23 mg/dL 7 - 25 mg/dL [facility] Urea nitrogen/Creatinine [Mass ratio] SEE NOTE: [facility] Comment on above: Not Reported: BUN an d Creatinine are within reference range. Lipid 1996 panelon Cholesterol [Mass/Vol] 195 mg/dL [facility] - 200 mg/dL [facility] Cholesterol in HDL [Mass/Vol] 73 mg/dL > OR = 40 [facility] Cholesterol in LDL [Mass/Vol] 98 mg/dL mg/dL (calc) [facility] Comment on above: Reference range: <10 0 Desirable range <100 mg/dL for primary prevention; <70 mg/dL for patients with CHD or diabetic patients with > or = 2 CHD risk factors. LDL-C is now calculated using the Levi-Susana calculation, which is a validated novel method providing better accuracy than the Friedewald equation in the estimation of LDL-C. Levi SS et al. [place] NENA. 2013;310(19): 0285-1515 (http://education.Seaters.Art Loft/faq/DAA550) Cholesterol non HDL [Mass/Vol] 122 mg/dL [facility] Comment on above: For patients with di abetes plus 1 major ASCVD risk factor, treating to a non-HDL-C goal of <100 mg/dL (LDL-C of <70 mg/dL) is considered a therapeutic option. Cholesterol.total/Chol esterol in HDL [Mass ratio] 2.7 {ratio} [facility] Triglyceride [Mass/Vol] 141 mg/dL [facility] - 150 mg/dL [facility] No Panel Informationon 01-07 FASTING:YES FASTING: YES [facility] Performing Organizat ion Information Site ID: QPT Name: [facility] Address: [address] [place] [address], [address] [place] [address] Director: Georges Yin MD [facility] PROTHROMBIN TIME-INRon 12-17 INR Coag (PPP) [Relative time] 2.2 {INR} High [facility] Comment on above: Result Comment: Refe rence Range 0.9-1.1 Moderate-intensity Warfarin Therapy 2.0-3.0 Higher-intensity Warfarin Therapy 3.0-4.0 Performed By: #### 8 847 #### [facility] [address], [address] [place], [place] [id number] Nurse Reviewer: Georges Yin MD PT Coag (PPP) [Time] 22.2 s High 9.0-11.5 [facility] Comment on above: Result Comment: For additional information, please refer to http://Schedule C Systems.Slots.com/faq/SYF501 (This link is being provided for informational/ educational purposes only.) Performed By: #### 8 847 #### [facility] [address], [address] [place] [address] Nurse Reviewer: Georges Yin MD PT Coag (Bld) [Time]on 12-17 INR Coag (PPP) [Relative time] 2.2 {INR} High [facility] Comment on above: Reference Range 0.9- 1.1 Moderate-intensity Warfarin Therapy 2.0-3.0 Higher-intensity Warfarin Therapy 3.0-4.0 Interpretation and review of laboratory results Abnormal [facility] PT Coag (PPP) [Time] 22.2 s High [facility] Comment on above: For additional infor mation, please refer to http://Schedule C Systems.Slots.com/faq/WYC608 (This link is being provided for informational/ educational purposes only.) Performing Organizat ion Information Site ID: QPT Name: [facility] Address: [address] [place] [address], [address] [place] [id number] Director: Georges Yin MD [facility] YAG CAPSULOTOMY OS (LEFT EYE )on 12-03-2024 [facility] XR Hip - left 3 Viewson 2 Imaging Result: Xrays taken in the office today saved to the permanent record, 3 views including AP pelvis and lateral of the operative hip, show stable position and alignment of the PRATEEK prosthesis. No sign of loosening, fracture or catastrophic wear. Limb lengths are appropriate. [facility] Radiology Study observation (narrative) [facility] PROTHROMBIN TIME-INRon 11-14 INR Coag (PPP) [Relative time] 2.5 {INR} High [facility] Comment on above: Result Comment: Refe rence Range 0.9-1.1 Moderate-intensity Warfarin Therapy 2.0-3.0 Higher-intensity Warfarin Therapy 3.0-4.0 Performed By: #### 8 847 #### [facility] [address], [address] [place], [place] [id number] Nurse Reviewer: Georges Yin MD PT Coag (PPP) [Time] 24.8 s High 9.0-11.5 [facility] Comment on above: Result Comment: For additional information, please refer to http://education.Slots.com/faq/ROY299 (This link is being provided for informational/ educational purposes only.) Performed By: #### 8 847 #### [facility] [address], [address] [place], [place] [id number] Nurse Reviewer: Georges Yin MD PROTHROMBIN TIME-INRon 10-09 INR Coag (PPP) [Relative time] 2.3 {INR} High [facility] Comment on above: Order Comment: FASTI NG:NO FASTING: NO Result Comment: Refe rence Range 0.9-1.1 Moderate-intensity Warfarin Therapy 2.0-3.0 Higher-intensity Warfarin Therapy 3.0-4.0 Performed By: #### 8 847 #### [facility] [phone] Nurse Reviewer: Martine Mooney PT Coag (PPP) [Time] 23.1 s High 9.0-11.5 [facility] Comment on above: Order Comment: FASTI NG:NO FASTING: NO Result Comment: For additional information, please refer to [email or web address] (This link is being provided for informational/ educational purposes only.) Performed By: #### 8 847 #### [facility] [address] [place] [address] Nurse Reviewer: Martine Mooney PROTHROMBIN TIME-INRon 09-25 INR Coag (PPP) [Relative time] 3.4 {INR} High [facility] Comment on above: Result Comment: Refe rence Range 0.9-1.1 Moderate-intensity Warfarin Therapy 2.0-3.0 Higher-intensity Warfarin Therapy 3.0-4.0 Performed By: #### 8 847 #### [facility] [address], [address] [place] [address] Nurse Reviewer: Georges Yin MD PT Coag (PPP) [Time] 32.9 s High 9.0-11.5 [facility] Comment on above: Result Comment: For additional information, please refer to http://[employer]/faq/MUB138 (This link is being provided for informational/ educational purposes only.) Performed By: #### 8 847 #### [facility] [address], [address] [place] [address] Nurse Reviewer: Georges Yin MD PROTHROMBIN TIME-INRon 08-28 INR Coag (PPP) [Relative time] 2.2 {INR} High [facility] Comment on above: Result Comment: Refe rence Range 0.9-1.1 Moderate-intensity Warfarin Therapy 2.0-3.0 Higher-intensity Warfarin Therapy 3.0-4.0 Performed By: #### 8 847 #### [facility] [address], [address] [place] [address] Nurse Reviewer: Georges Yin MD PT Coag (PPP) [Time] 21.6 s High 9.0-11.5 [facility] Comment on above: Result Comment: For additional information, please refer to http://[employer]/faq/CPE992 (This link is being provided for informational/ educational purposes only.) Performed By: #### 8 847 #### [facility] [address], [address] [place] [address] Nurse Reviewer: Geroges Yin MD PROTHROMBIN TIME-INRon 07-28 INR Coag (PPP) [Relative time] 2.2 {INR} High [facility] Comment on above: Order Comment: FASTI NG:UNKNOWN FASTING: UNKNOWN Result Comment: Refe rence Range 0.9-1.1 Moderate-intensity Warfarin Therapy 2.0-3.0 Higher-intensity Warfarin Therapy 3.0-4.0 Performed By: #### 8 847 #### [facility] [address], [address] [place] [address] Nurse Reviewer: Georges Yin MD PT Coag (PPP) [Time] 21.6 s High 9.0-11.5 [facility] Comment on above: Order Comment: FASTI NG:UNKNOWN FASTING: UNKNOWN Result Comment: For additional information, please refer to [email or web address]/QIP925 (This link is being provided for informational/ educational purposes only.) Performed By: #### 8 847 #### [facility] [place] [address] Nurse Reviewer: Georges Yin MD PT Coag (Bld) [Time]on 07-28 INR Coag (PPP) [Relative time] 2.2 {INR} High [facility] Comment on above: Reference Range 0.9- 1.1 Moderate-intensity Warfarin Therapy 2.0-3.0 Higher-intensity Warfarin Therapy 3.0-4.0 Interpretation and review of laboratory results Abnormal [facility] PT Coag (PPP) [Time] 21.6 s High [facility] Comment on above: For additional infor mation, please refer to [email or web address]/PKU331 (This link is being provided for informational/ educational purposes only.) FASTING:UNKNOWN FASTING: UNKNOWN [facility] Performing Organizat ion Information Site ID: QPT Name: [facility] Address: [address] [place] [address], [address] [place] [id number] Director: Georges Yin MD [facility] COVID-19 / Flu A/B / RSV PCR on 07-12-2024 SARS-CoV-2 (COVID-19) RNA BON+probe Ql (Unsp spec) COVID-19 Cepheid Result Positive for SARS-CoV-2 RNA by RT-PCR Flu A Cepheid Result Negative for Flu A RNA by RT-PCR Flu B Cepheid Result Negative for Flu B RNA by RT-PCR RSV Cepheid Result Negative for RSV RNA by RT-PCR COVID19 Blank Space -- Reference: Negative COVID19 Blank Space -- Cepheid Disclaimer The Cepheid Xpert Xpress CoV-2/Flu/RSV Plus has Cepheid Disclaimer not been FDA cleared or approved; this test has Cepheid Disclaimer been authorized by FDA under an EUA for use by Cepheid Disclaimer authorized laboratories; this test has been Cepheid Disclaimer authorized only for the simultaneous qualitative Cepheid Disclaimer detection and differentiation of nucleic acids from Cepheid Disclaimer SARS-CoV-2, influenza A, influenza B, and Cepheid Disclaimer respiratory syncytial virus (RSV), and not for any Cepheid Disclaimer other viruses or pathogens; and this test is only Cepheid Disclaimer authorized for the duration of the declaration that Cepheid Disclaimer circumstances exist justifying the authorization of Cepheid Disclaimer emergency use of in vitro diagnostic tests for Cepheid Disclaimer detection and/or diagnosis of COVID-19 under Cepheid Disclaimer Section 564(b)(1) of the Act, 21 U.S.C. 360bbb- Cepheid Disclaimer 3(b)(1), unless the authorization is terminated or Cepheid Disclaimer revoked sooner. PERFORMED BY: [place] [address] PATHOLOGIST [employer] DANIELITO PAVON M.D. Normal [facility] Comment on above: Performed By: #### C , BMP #### [address] head/brain wo conon 07-12 CT head/brain wo con [facility] [place] [address] [place] [address] CT Scan Report Signed Patient: Padmini Lloyd MR#: [id number] : 1950 Acct:[id number] Age/Sex: 74 / M ADM Date: 07/12/24 Loc: ER Room: Type: [facility] ER Attending Dr: Copies to: Britni Soto Do Ordering Provider: Britni Soto Do Date of Service: 07/12/24 CT/CT head/brain wo con: JOSHUA CT BRAIN WITHOUT CONTRAST: CLINICAL HISTORY: Headache, hypertension COMPARISON: None TECHNIQUE: Contiguous axial unenhanced images were obtained through the brain. This CT exam was performed using one or more following dose reduction techniques: Automated exposure control, adjustment of the mA and/or kV according to patient size, or use of iterative reconstruction technique. FINDINGS: There is no evidence of midline shift, intra or extra-axial fluid collection, hemorrhage or CT evidence of stroke. Posterior fossa appears unremarkable. Visualized intraorbital contents demonstrate no acute findings. Visualized paranasal sinuses are clear. The surrounding soft tissues are normal. CT/CT head/brain wo con IMPRESSION: NO ACUTE INTRACRANIAL ABNORMALITY. Impression dictated by: Andriy Zhao Jr., D.O.07/12/2024 8:27 AM Dictation Location: [facility]-18 Transcribed By: [facility] 07/12/24826 Dictated By: Andriy Zhao Jr, DO 07/12/24825 Signed By: 07/12/24826 Normal [facility] Cepheid COVID PCR Positiveon 07-12-2024 SARS-CoV-2 (COVID-19) RNA BON+probe Ql (Unsp spec) Positive Critically abnormal Negative [facility] Comment on above: Result Comment: This is a duplicate [facility] Xpert Xpress CoV-2/Flu/RSV Plus RNA by RT-PCR result to be used for statistical tracking purpose only. PERFORMED BY: [place] [address] PATHOLOGIST [employer] DANIELITO PAVON M.D. Performed By: #### C BC, BMP #### [address] Complete Blood Count Auto Di ffon 07-12-2024 Basophils (Bld) [#/Vol] 0.0 10*3/uL Normal 0.0-0.2 [facility] Comment on above: Result Comment: PERF ORMED BY: [place] [address] PATHOLOGIST [employer] DANIELITO PAVON M.D. Performed By: #### C BC, BMP #### [address] Basophils/100 WBC (Bld) 0.4 % Normal . [facility] Comment on above: Performed By: #### C BC, BMP #### [address] Eosinophils (Bld) [#/Vol] 0.0 10*3/uL Normal 0.0-0.45 [facility] Comment on above: Performed By: #### C BC, BMP #### [address] Eosinophils/100 WBC (Bld) 0.0 % Normal . [facility] Comment on above: Performed By: #### C BC, BMP #### [address] Erythrocyte distribution width (RBC) [Ratio] 14.4 % Normal 12.0-14.8 [facility] Comment on above: Performed By: #### C BC, BMP #### [place] [address] Hematocrit (Bld) [Volume fraction] 47.8 % Normal 38.8-50.0 [facility] Comment on above: Performed By: #### C BC, BMP #### [address] Hemoglobin (Bld) [Mass/Vol] 16.2 g/dL Normal 13.0-17.0 [facility] Comment on above: Performed By: #### C BC, BMP #### [address] Lymphocytes (Bld) [#/Vol] 1.0 10*3/uL Normal 1.00-4.8 [facility] Comment on above: Performed By: #### C BC, BMP #### [address] Lymphocytes/100 WBC (Bld) 16.4 % Normal . [facility] Comment on above: Performed By: #### C BC, BMP #### [address] MCH (RBC) [Entitic mass] 30.4 pg Normal 27.5-35.2 [facility] Comment on above: Performed By: #### C BC, BMP #### [address] MCV (RBC) [Entitic vol] 90.0 fL Normal 83.5-101 [facility] Comment on above: Performed By: #### C BC, BMP #### [address] Mean Corpuscular HGB Conc 33.8 g/dL Normal 32.5-35.6 [facility] Comment on above: Performed By: #### C BC, BMP #### [address] Monocytes (Bld) [#/Vol] 1.0 10*3/uL High 0.0-0.8 [facility] Comment on above: Performed By: #### C BC, BMP #### [place] [address] [place] Monocytes/100 WBC (Bld) 21.35 % High 0.00-20.00 [facility] Comment on above: Result Comment: For adults in ED, MDW > 20.0 may be associated with a higher risk of sepsis during the first 12 hrs of hospital admission Performed By: #### C BC, BMP #### [place] [address] [place] Monocytes/100 WBC (Bld) 17.1 % Normal . [facility] Comment on above: Performed By: #### C BC, BMP #### [place] [address] [place] Neutrophils (Bld) [#/Vol] 4.0 10*3/uL Normal 1.8-7.7 [facility] Comment on above: Performed By: #### C BC, BMP #### [address] Neutrophils/100 WBC (Bld) 66.1 % Normal . [facility] Comment on above: Performed By: #### C BC, BMP #### [place] [address] [place] NRBC% 0.1 /100{WBC} Normal 0-0.5 [facility] Comment on above: Performed By: #### C BC, BMP #### [address] Platelet mean volume (Bld) [Entitic vol] 7.5 fL Normal 6.6-10.1 [facility] Comment on above: Performed By: #### C BC, BMP #### [place] [address] [place] Platelets (Bld) [#/Vol] 169 10*3/uL Normal 150-450 [facility] Comment on above: Performed By: #### C BC, BMP #### [place] [address] [place] RBC (Bld) [#/Vol] 5.31 10*6/uL Normal 3.90-5.60 [facility] Comment on above: Performed By: #### C BC, BMP #### [facility] [address] WBC (Bld) [#/Vol] 6.1 10*3/uL Normal 4.1-10.5 [facility] Comment on above: Performed By: #### C BC, BMP #### [facility] [address] Comprehensive Metabolic Pane akash 07-12-2024 Albumin [Mass/Vol] 3.9 g/dL Normal 3.5-5.7 [facility] Comment on above: Performed By: #### C BC, BMP #### [address] Albumin/Globulin [Mass ratio] 1.4 {ratio} Normal [facility] Comment on above: Performed By: #### C BC, BMP #### [address] ALP [Catalytic activity/Vol] 102 U/L Normal 34-104 [facility] Comment on above: Performed By: #### C BC, BMP #### [address] ALT [Catalytic activity/Vol] 13 U/L Normal 7-52 [facility] Comment on above: Performed By: #### C BC, BMP #### [address] Anion gap [Moles/Vol] 10.8 mmol/L Normal 6.0-15.0 [facility] Comment on above: Performed By: #### C BC, BMP #### [address] AST [Catalytic activity/Vol] 17 U/L Normal 13-39 [facility] Comment on above: Performed By: #### C BC, BMP #### [address] Bilirubin [Mass/Vol] 0.9 mg/dL Normal 0.3-1.0 [facility] Comment on above: Performed By: #### C BC, BMP #### [address] Calcium [Mass/Vol] 8.6 mg/dL Normal 8.6-10.3 [facility] Comment on above: Performed By: #### C BC, BMP #### [address] Chloride [Moles/Vol] 104 mmol/L Normal 98-107 [facility] Comment on above: Performed By: #### C BC, BMP #### [address] CO2 [Moles/Vol] 25.3 mmol/L Normal 21.0-31.0 [facility] Comment on above: Performed By: #### C BC, BMP #### [address] Creatinine [Mass/Vol] 1.24 mg/dL Normal 0.70-1.30 [facility] Comment on above: Performed By: #### C BC, BMP #### [address] Creatinine Clr Calc Pharmacy 68.59 Normal [facility] Comment on above: Result Comment: PERF ORMED BY: [place] [address] PATHOLOGIST [employer] DANIELITO PAVON M.D. Performed By: #### C BC, BMP #### [address] GFR/1.73 sq M.predicted MDRD (S/P/Bld) [Vol rate/Area] mL/min/{1.73_m2} Normal [facility] Comment on above: Performed By: #### C BC, BMP #### [address] Globulin (S) [Mass/Vol] 2.8 g/dL Normal [facility] Comment on above: Performed By: #### C BC, BMP #### [address] Glucose [Mass/Vol] 109 mg/dL High 70-100 [facility] Comment on above: Result Comment: [place] Glucose Reference Range is dependent on time and content of last meal. Glucose of more than 200 mg/dL in a nonstressed, ambulatory subject supports the diagnosis of Diabetes Mellitus. ADA recommended reference range Performed By: #### C BC, BMP #### [facility] [address] [place] [id number] [facility] Potassium [Moles/Vol] 4.1 mmol/L Normal 3.5-5.1 [facility] Comment on above: Performed By: #### C BC, BMP #### [facility] [address] [place] [address] [place] Protein [Mass/Vol] 6.7 g/dL Normal 6.4-8.9 [facility] Comment on above: Performed By: #### C BC, BMP #### [address] Sodium [Moles/Vol] 136 mmol/L Normal 136-145 [facility] Comment on above: Performed By: #### C BC, BMP #### [place] [address] [place] Urea nitrogen [Mass/Vol] 16 mg/dL Normal 7-25 [facility] Comment on above: Performed By: #### C BC, BMP #### [place] [address] [place] Dipstick and Microscopicon 1 09-12-2023 Appearance (U) Clear Normal Clear [facility] Comment on above: Order Comment: Name Collection Type:: Clean-Voided Midstream Performed By: #### C UU, ADDONUAPLUS #### [place] [id number] [place] Bacteria,Urine None Seen Normal None Seen [facility] Comment on above: Order Comment: Name Collection Type:: Clean-Voided Midstream Performed By: #### C UU, ADDONUAPLUS #### [facility] [address] [place] [id number] [place] Bilirubin,Urine Negative Normal Negative [facility] Comment on above: Order Comment: Name Collection Type:: Clean-Voided Midstream Performed By: #### C UU, ADDONUAPLUS #### [address] Color (U) Light-Yellow Normal Yellow [facility] Comment on above: Order Comment: Name Collection Type:: Clean-Voided Midstream Performed By: #### C UU, ADDONUAPLUS #### [address] Glucose Ql (U) Normal Normal Normal [facility] Comment on above: Order Comment: Name Collection Type:: Clean-Voided Midstream Performed By: #### C UU, ADDONUAPLUS #### [place] [address] [place] Hyaline Casts,Urine None Normal 0-8 [facility] Comment on above: Order Comment: Name Collection Type:: Clean-Voided Midstream Performed By: #### C UU, ADDONUAPLUS #### [address] Ketones Ql (U) Negative Normal Negative [facility] Comment on above: Order Comment: Name Collection Type:: Clean-Voided Midstream Performed By: #### C UU, ADDONUAPLUS #### [address] Leukocyte esterase Test strip Ql (U) 2+ High Negative [facility] Comment on above: Order Comment: Name Collection Type:: Clean-Voided Midstream Performed By: #### C UU, ADDONUAPLUS #### [address] Mucus,Urine Rare Normal [facility] Comment on above: Order Comment: Name Collection Type:: Clean-Voided Midstream Result Comment: PERF ORMED BY: [place] [address] PATHOLOGIST [employer] DANIELITO PAVON M.D. Performed By: #### C UU, ADDONUAPLUS #### [address] Nitrite,Urine Negative Normal Negative [facility] Comment on above: Order Comment: Name Collection Type:: Clean-Voided Midstream Performed By: #### C UU, ADDONUAPLUS #### [address] Occult Blood,Urine Negative Normal Negative [facility] Comment on above: Order Comment: Name Collection Type:: Clean-Voided Midstream Result Comment: PERF ORMED BY: [place] [address] PATHOLOGIST [employer] DANIELITO PAVON M.D. Performed By: #### C UU, ADDONUAPLUS #### [address] pH (U) 7.0 [pH] Normal 5.0-9.0 [facility] Comment on above: Order Comment: Name Collection Type:: Clean-Voided Midstream Performed By: #### C UU, ADDONUAPLUS #### [address] Protein (U) [Mass/Vol] 20 mg/dL High Negative [facility] Comment on above: Order Comment: Name Collection Type:: Clean-Voided Midstream Performed By: #### C UU, ADDONUAPLUS #### [address] RBC,Urine 3 [HPF] Normal 0-4 [facility] Comment on above: Order Comment: Name Collection Type:: Clean-Voided Midstream Performed By: #### C UU, ADDONUAPLUS #### [address] Specificy [place],Urine 1.017 Normal 1.001-1.03 0 [facility] Comment on above: Order Comment: Name Collection Type:: Clean-Voided Midstream Performed By: #### C UU, ADDONUAPLUS #### [address] Squamous Epithelial Cell,Urine 1 [HPF] Normal 0-2 [facility] Comment on above: Order Comment: Name Collection Type:: Clean-Voided Midstream Performed By: #### C UU, ADDONUAPLUS #### [facility] [address] Urobilinogen,Urine Normal Normal Normal [facility] Comment on above: Order Comment: Name Collection Type:: Clean-Voided Midstream Performed By: #### C UU, ADDONUAPLUS #### [facility] [address] [place] [address] WBC,Urine 5 [HPF] High 0-4 [facility] Comment on above: Order Comment: Name Collection Type:: Clean-Voided Midstream Performed By: #### C UU, ADDONUAPLUS #### [facility] [address] [place] [address] ECG 12 lead ECGon 07-12-2024 ECG 12 lead ECG [facility] [place] [address] [place] [address] Electrocardiograph Report Signed Patient: Padmini Lloyd MR#: [id number] : 1950 Acct:[id number] Age/Sex: 74 / M ADM Date: 07/12/24 Loc: ER Room: Type: [facility] ER Attending Dr: Ordering Provider: Britni Soto Do Date of Service: 07/12/2403/28/712 ECG/ECG 12 lead ECG: Headache Copies to: Test Reason : Blood Pressure : 202/108 mmHG Vent. Rate : 103 BPM Atrial Rate : 103 BPM P-R Int : 204 ms QRS Dur : 106 ms QT Int : 370 ms P-R-T Axes : 37 -37 45 degrees QTcB Int : 484 ms Sinus tachycardia with occasional premature ventricular complexes Left axis deviation Incomplete right bundle branch block Possible Anterior infarct , age undetermined Abnormal ECG When compared with ECG of 29-Jan-2024 11:15, premature ventricular complexes are now present Incomplete right bundle branch block is now present Confirmed by JAYDEN SOMERS DO ([id number]) on 07/12/2024 7:04:36 PM Referred By: Electronically Signed By: JAYDEN SOMERS DO Transcribed By: MUS Signed By Jayden Somers DO 1904 Normal [facility] Prothrombin Time INRon 07-12 INR Coag (PPP) [Relative time] 2.2 {INR} Normal [facility] Comment on above: Result Comment: INR Therapeutic [...] with mechanical heart valves: 3 - 4.5 PERFORMED BY: [place] [address] PATHOLOGIST [employer] DANIELITO PAVON M.D. Performed By: #### C FABIÁN, BMP #### [address] PT Coag (PPP) [Time] 24.7 s High 9.0-12.9 [facility] Comment on above: Result Comment: A he matocrit value greater than 55% may lead to inaccurate results in coagulation testing. Patients having hematocrit values >55% require a special collection tube for coagulation studies. Please contact the laboratory at [phone] for redraw instructions. Performed By: #### C FABIÁN, BMP #### [address] Troponin I High Sensitivityo n 07-12-2024 Troponin I High Sensitivity 10.7 pg/mL Normal 0.0-20.0 [facility] Comment on above: Result Comment: PERF ORMED BY: [place] [address] PATHOLOGIST [employer] DANIELITO PAVON M.D. Performed By: #### C FABIÁN, BMP #### [place] [id number] [facility] Urine Cultureon 07-12-2024 Bacteria identified Cx Nom (U) <9,000 colonies/ml mixed bacterial skin contaminants 2 Days PERFORMED BY: [place] [address] PATHOLOGIST [employer] DANIELITO PAVON M.D. Normal [facility] Comment on above: Performed By: #### C UU, ADDODILIA #### [facility] [address] [place] [id number] [facility] Ambulatory Visit Summaryon 1 08-30-2023 Ambulatory Visit Summary Ambulatory Visit Summary PADMINI LLOYD :1950 Visit Date:06/30/2024 Ambulatory Visit Instructions Your Diagnosis Calcification of prostate Bladder neck contracture BPH with urinary obstruction H/O prostate cancer History of bladder stone Your Care Team Attending Physician - Domenico GIPSON MD Primary Care Physician - JUANA CALIX, JARRED Rice This Is Your Medications List potassium citrate (potassium CITRATE 10 mEq ER Tab) Contact prescribing physician if questions or concerns cyanocobalamin (Vitamin B12) ergocalciferol (Vitamin D) losartan (losartan 100 mg Tab) magnesium gluconate (magnesium gluconate 250 mg oral tablet) multivitamin with minerals (One A Day Men 50 Plus) nebivolol (nebivolol 10 mg Tab) warfarin (warfarin 6 mg Tab) zinc sulfate (Zinc) Procedures Performed Laser ablation of prostate (02/13/2024), Flexible cystoscopy (01/17/2024), Total hip replacement (11/26/2023), TURP - Transurethral resection of prostate (05/20/2023), Litholapaxy of bladder calculus (03/14/2022), Cystourethroscopy with dilation of urethral stricture (02/08/2022), Cystoscopy (08/24/2020), Endoscopic transurethral electrovaporization of prostate (05/15/2017), Transrectal biopsy of prostate using ultrasound (US) guidance (09/07/2016), Brachytherapy (2016), CE - Cataract extraction, Colonoscopy. Discharge Vitals Temperature (Temporal Artery) 37 ???C Heart Rate (Peripheral) 75 Respiratory Rate 16 Blood Pressure 135/82 Height 183 cm Height 72 in Weight 108.3 kg Weight 238.76 lb BMI 32.34 What to do next Scheduled Follow-Up Appointments Saturday 10:15 AM EDT With: Domenico GIPSON MD Where: [facility] [address] [place] [address]- You Need to Schedule the Following Appointments Follow Up with APURVA CALIX, EDISON Rocha When: Where: [address] [facility] [address] [place] [id number]- Medications What How Much When Instructions Unchanged potassium citrate (potassium CITRATE 10 mEq ER Tab) 2 Tablets By Mouth 2 times a day Unchanged cyanocobalamin (Vitamin B12) 500 Microgram By [...] Contact prescribing physician if questions or concerns Allergies Avelox (Hallucinations) Bactrim (History of kidney problems) moxifloxacin (Mental Status Change) quinolone antibiotics (Mental status change) sulfamethoxazole-trimethop rim (Unknown) Problems Ongoing - Any problem that you are currently receiving treatment for. Anticoagulated Asymptomatic microscopic hematuria Bladder neck contracture Bladder stones BPH with urinary obstruction Calcification of prostate DVT (deep venous thrombosis) Dysuria Gross hematuria H/O prostate cancer History of bladder stone History of UTI Hypertension Kidney stones Microscopic [...] choosing us for your care. Education Materials Benign Prostatic Hyperplasia Benign prostatic hyperplasia (BPH) is an enlarged prostate gland that is caused by the normal aging process. The prostate may get bigger as a man gets older. The condition is not caused by cancer. The prostate is a walnut-sized gland that is involved in the production of semen. It is located in front of the rectum and below the bladder. The bladder stores urine. The urethra carries stored urine out of the body. An enlarged prostate can press on the urethra. This can make it harder to pass urine. The buildup of urine in the bladder can cause infection. Back pressure and infection may progress to bladder damage and kidney (renal) failure. What are (more content not included)... Normal [facility] Urology Office/Clinic Noteon 06-30-2024 Urology Office/Clinic Note Urology Office/Clinic Note Chief Complaint BPH with urinary obstruction HPI Staff 74 year old male patient here for a 4 month follow up. Previous Dx: asymptomatic microscopic hematuria, bladder neck contracture, bladder stones, BPH w/ urinary obstruction, calcification of prostate, dysuria, gross hematuria, h/o prostate cancer, history of UTI, nocturia, poor urinary stream, stress incontinence, urine frequency. S/P cysto/holmium laser of prostate calcifications 02/13/24, cystoscopy 01/17/24, TURP 05/20/23, litholapaxy 03/14/22, cysto/UD done on 02/08/22, REZUM 05/15/17, TRUS/bx 09/07/16. Dysuria: denies Incomplete bladder emptying: less than 1 in 5x Hematuria: denies Frequency: less than 1 in 5x Urgency: less than 1 in 5x Nocturia: 1x Stream: good steady stream Leaking: denies Post void dripping: denies Wearing pads/ Depends: denies Urge incontinence: denies Stress incontinence: with heavy lifting once in a while Incontinence without Sensory Awareness: denies Abdominal pain: denies Flank pain: denies Sexual complaints: denies History of Present Illness Tests reviewed: reviewed UA. I have reviewed the previous health record information and history for this patient from Dr. Gipson I have reviewed and verified the staff HPI to be accurate for this encounter. There have been no associated fever, chills, flank pain, or blood in the urine. Denies any urinary infections since last encounter. Review of Systems PHQ Score Initial Depression Screen Score: 0 SCORE ROS - Provider Constitutional: denies weight loss, denies hot flashes. Eyes: denies eye problems. Gastrointestinal: denies nausea, denies vomiting. Cardiovascular: denies chest pain or angina. Integumentary: no dryness Musculoskeletal: denies musculoskeletal symptoms. ENMT: denies otolaryngeal symptoms. Respiratory: no shortness of breath. Heme/Lymph: denies easy bleeding tendency, denies easy bruising tendency. Psychiatric: no confusion, no anxiety. Genitourinary: See HPI. Physical Exam Vitals & Measurements T: 37 ???C(Temporal Artery) HR: 75(Peripheral) RR: 16 BP: 135/82 HT: 72 in HT: 183 cm WT: 108.3 kg WT: 238.76 lb BMI: 32.34 General Appearance: alert, no distress, well nourished, well developed male. Assessment/Plan Portions of this record may have been created with voice recognition artificial intelligence software, specifically Rollbar, Abcodia and or [employer]. Substitutions may have occurred due to the inherent limitations of voice recognition and artificial intelligence software. 1. Calcification of prostate (N42.89: Other specified disorders of prostate) S/p Cysto 02/04/24 - Obstructed prostate from calcifications. S/p Cysto/holmium laser of prostate calcifications 02/13/24. Catheter removed IO 02/18/24. Taking potassium citrate 10mEq ER bid. Reports he does not always take routinely. Pt also reports he stopped drinking Diet Coke and stopped eating chocolate almonds. Has been adding lemon to water. Pt states he has seen a tremendous difference in his stream and getting up during the night. -Cont Potassium Citrate 10mEq ER bid routinely -Pt to cont dietary modifications 2. Bladder neck contracture (N32.0: Bladder-neck obstruction) S/p Cysto/UD 02/08/22 - Bladder neck contracture and a calculus right at the bladder neck. S/p Cysto/Litholapaxy of BNC & fulguration of prostate 03/14/22. S/p Cysto/TURP/holmium laser ablation bladder neck/bladder outlet calcifications 05/20/23. [1] -See #1 3. BPH with urinary obstruction (N40.1: Benign prostatic hyperplasia with lower urinary tract symptoms) UA today shows trace-intact blood and trace leuks. IPSS 4 (2) Not currently taking any BPH meds. Pt states his stream is flat at the beginning of his stream. Advised pt to monitor this and to report any worsening symptoms to our office. Not voicing any urinary habit complaints. -Cont symptomatic monitoring -F/up in 6 mos or sooner if needed 4. H/O prostate cancer (Z85.46: Personal history of malignant neoplasm of prostate) PSA: 06/21/21 - 0.1 11/13/21 - 0.03 08/21/22 - 0.02 08/28/23 - <0.02 S/p Brachytherapy 11/28/16. Still following w/ Dr. Garcia for hx lymphoma. [2] Shares he is unsure who is checking his PSA. Pt to discuss with either Dr. Garcia or primary care. We can always order PSA if needed. 5. History of bladder stone (Z87.448: Personal history of other diseases of urinary system) No hx of kidney stones. Has had 2 bladder stones in the past, with sx of spraying stream. KUB 05/31/23 - no stones noted. [3] The patient is status post holmium laser ablation and placement of Lucio catheter and mini prostate resection. He is voiding well. He only has an occasional flatness to his urinary stream at its initiation but he still happy. He knows he is at high risk of recurrence of this dystrophic calcification within the prostatic fossa and he is taking the potassium citrate. No need for (more content not included)... Normal [facility] Comment on above: Result Comment: Elec tronically Signed By: Domneico GIPSON MD\.br\Date and Time Signed: 06/30/24 14:29 EST\.br\Electronically Co-Signed By: Tiffani Marino\.br\Date and Time Co-Signed: 06/30/24 14:25 EST PROTHROMBIN TIME-INRon 06-26 INR Coag (PPP) [Relative time] 2.3 {INR} High [facility] Comment on above: Result Comment: Refe rence Range 0.9-1.1 Moderate-intensity Warfarin Therapy 2.0-3.0 Higher-intensity Warfarin Therapy 3.0-4.0 Performed By: #### 8 847 #### [facility] [address], [address] [place] [id number] Nurse Reviewer: Georges Yin MD PT Coag (PPP) [Time] 22.9 s High 9.0-11.5 [facility] Comment on above: Result Comment: For additional information, please refer to http://education.Slots.com/faq/MXJ387 (This link is being provided for informational/ educational purposes only.) Performed By: #### 8 847 #### [facility] [address] [facility], [address] [place] [address] Nurse Reviewer: Georges Yin MD ANES POSTPROC EVALon 024 ANES POSTPROC EVAL HNO ID: [id number] Author: DAQUAN PAPPAS II, DO Service: Anesthesiology Author Type: Anesthesiologist Type: Anesthesia Postprocedure Evaluation Filed: 05/20/2024 11:41 Note Text: POST ANESTHESIA EVALUATION NOTE : 1950 Procedure Summary Date: 05/20/24 Room / Location: [address] Anesthesia Start: 1048 Anesthesia Stop: 1106 Procedures: PHACOEMULSIFICATION CATARACT IMPLANT INTRAOCULAR LENS W/O ENDOSCOPIC CYCLOPHOTOCOAGULATION (Left: Eye) OPHTHALMIC BIOMETRY BY PARTIAL COHERENCE INTERFEROMETRY W/INTRAOCULAR LENS POWER CALCULATION (Left: Eye) Diagnosis: Combined forms of age-related cataract of left eye (Combined forms of age-related cataract of left eye [H25.812]) Surgeons: Kaye Kent MD Responsible Provider: Daquan Pappas II, DO Anesthesia Type: MAC ASA Status: 3 Anesthesia Type: MAC Last Vitals Vitals Value Taken Time BP 144/96 05/20/24 1120 Temp 36.2 ?C (97.2 ?F) 05/20/24 1110 HR SpO2 63 05/20/24 1120 Resp 16 05/20/24 1120 SpO2 94 % 05/20/24 1120 Post Anesthesia Patient Status Patient Evaluation: PACU. PACU/ICU Patient Condition: stable. Neurological Status: aware and responsive. Pulmonary Status: breathing comfortably on room air Airway Control: returned to baseline unsupported. Cardiovascular Status: stable. Pain Management: clinically adequate Postoperative Hydration: acceptable. Intraoperative Events: no significant anesthesia events Post Operative Nausea/Vomiting Status: no significant post operative nausea or vomiting Recommendation: continue current plan of care. Anesthesia Observations No Documentation SIGNATURE: aDquan Pappas II, DO PATIENT NAME: Padmini Lloyd DATE: May 20, 2024 TIME: 11:40 AM CSN: [id number] [facility] ANES PRE-OPon 05-20-2024 ANES PRE-OP HNO ID: [id number] Author: DAQUAN PAPPAS II, DO Service: Anesthesiology Author Type: Anesthesiologist Type: Anesthesia Preprocedure Evaluation Filed: 05/20/2024 10:15 Note Text: ANESTHESIOLOGY DAY OF SURGERY NOTE : 1950 Procedure Information Date/Time: 05/20/24 1040 Procedures: PHACOEMULSIFICATION CATARACT IMPLANT INTRAOCULAR LENS W/O ENDOSCOPIC CYCLOPHOTOCOAGULATION (Left: Eye) OPHTHALMIC BIOMETRY BY PARTIAL COHERENCE INTERFEROMETRY W/INTRAOCULAR LENS POWER CALCULATION (Left: Eye) Location: [address] Surgeons: Kaye Kent MD Estimated body mass index is 32.59 kg/m? as calculated from the following: Height as of 05/05/24: 182.9 cm (6'). Weight as of 05/05/24: 109 kg (240 lb 4.8 oz). Most recent hematocrit and potassium results: Hematocrit 49.5 08/28/2023 Potassium 4.4 08/28/2023 Relevant Problems CARDIO (+) Deep vein thrombosis (DVT) (HCC) (+) HTN (hypertension) NEURO-PSYCH (+) History of prostate cancer I - PHYSICAL EVALUATION AIRWAY Patient intubated: No. Tracheostomy tube not present Mallampati: III. TM distance: >3 FB. Neck ROM: limited extension. Mouth opening: adequate. Short neck: no. Thick neck: yes DENTAL Additional comments: crowns. Additional exam findings: yes. CARDIOVASCULAR Rhythm: regular Rate: normal PULMONARY Breath sounds clear to auscultation. II - ANESTHESIA PLAN ASA Score: 3 Anesthetic Plan: MAC The patient is not a current smoker. NPO Status: adequate Beta Debbi Monitoring Plan Monitoring plan: standard ASA. Post Procedure Analgesic Plan Postoperative analgesic plan: parenteral or oral opioids. Informed Consent Anesthetic risks, benefits, alternatives, personnel and consent discussed: yes. Patient / Responsible Constitution Party agrees to proceed: yes Patient / Surrogate agrees to blood products: Yes No vitals data found for the desired time range. No current facility-administered medications on file as of 05/20/2024. Outpatient Medications as of 05/20/2024 Medication Sig - ZINC ORAL Take 25 mg by [...] Take 1 capsule by mouth once daily. I have interviewed and examined the patient. I have reviewed the medical record and/or the pre-anesthesia evaluation, pertinent labs, and test results. This contains updated information obtained within 48 hours of Surgery/Procedure. SIGNATURE: Daquan Pappas II, DO PATIENT NAME: Padmini Lloyd DATE: May 20, 2024 TIME: 10:14 AM CSN: [id number] [facility] OPERATIVE NOon 05-20-2024 OPERATIVE NO HNO ID: [id number] Author: KAYE KENT MD Service: Ophthalmology Author Type: Physician Type: Operative Report Filed: 05/20/2024 11:12 Note Text: OPERATIVE/PROCEDURE REPORT LOG ID: [id number] Surgery/Procedure Date: 05/20/2024 Incision/Procedure Start Time: 10:56 AM Incision Close/Procedure End Time: 11:06 AM Surgeon(s)/Proceduralist(s ) and Data Examination Clerk(s): Surgeons and Role: * Kaye Kent MD - Primary Data Examination Clerk: None. Any nurse listed as assisting or otherwise participating in this case has performed only the duties of a circulating nurse. Anesthesia: Monitored Anesthesia Care Pre-Op/Pre-Procedure Diagnosis: Pre-Op Diagnosis Codes: * Combined forms of age-related cataract of left eye [H25.812] Post-Op/Post-Procedure Diagnosis: Post-Op Diagnosis Codes: * Combined forms of age-related cataract of left eye [H25.812] Procedure(s): Procedure(s) (LRB): PHACOEMULSIFICATION CATARACT IMPLANT INTRAOCULAR LENS W/O ENDOSCOPIC CYCLOPHOTOCOAGULATION (Left) OPHTHALMIC BIOMETRY BY PARTIAL COHERENCE INTERFEROMETRY W/INTRAOCULAR LENS POWER CALCULATION (Left) Procedure Details: The patient was brought to the operating room and placed in the supine position on the operating table in the usual fashion. An IV was in place, as well as EKG, and BP monitoring. Nasal oxygen was administered. A Time Out was conducted confirming the correct patient, correct eye, correct surgery, correct implant and all allergies. The [employer] Lens verification Policy was meticulously followed as previously approved with both an initial lens verification by myself in the presence of the Nurse Coordinator and the lead technician and a secondary full lens verification as part of the Time Out, with patient identity, laterality, and lens choice confirmed against the source document by myself, the Consumer Insights Intern Nurse, and the lead technician. Topical lidocaine gel 2% was placed in a small ribbon in the lower cul-de-sac. The patient was prepped and draped in the usual sterile manner and a wire lid speculum was used to keep the eyelids open. A scleral groove was created at the superotemporal limbus and a keratome blade was used to tunnel forward from the groove approximately 1 mm into clear cornea before the anterior chamber was entered. The blade was used to torres the central anterior lens capsule. After the anterior chamber was filled with phenylephrine and viscoelastic, the Utrata forceps were used to create a continuous curvilinear capsulorrhexis of approximately 5.5 mm round. Gentle hydrodissection was accomplished using preservative-free lidocaine on a 27-guage cannula. Using the [employer] phacoemulsification unit with the Kelman curved tip, the anterior chamber was entered and the nucleus was removed while it was in the bag. The epinuclear ring was dissected into several segments, then removed using the phacoemulsification unit set to the desired aspiration flow rate and ultrasound parameters. Great care was taken not to violate the posterior capsule. The phaco CDE was 40.57. The irrigation/aspiration (I and A) device was then used to remove residual cortex. At the conclusion of the I and A, the posterior capsulewas polished and then noted to be clean and intact. There was a small amount of residual subcapsular fibrotic material which was densely adherent to the capsule and could not be removed even with extensive polishing. The lens capsule was filled with viscoelastic and the foldable 19.0 diopter lens was inserted atraumatically into the capsular bag (see implants below for lens information). The lens was observed to center nicely. The I and A device was again used to remove residual viscoelastic. Intracameral Cefuroxime 0.1 cc was injected. The wound was hydrated, tested and found to be watertight. The speculum was removed. Drops of ketorolac (if not allergic), timolol and prednisolone were instilled. A shield was applied and the patient left the operating room in stable condition without complications. Findings: Flomax-induced intraoperative miosis and floppy iris, left eye. Estimated Blood Loss: 0 ml Specimens: None. I have reviewed the images and report from the Ophthalmic Biometry May 20, 2024 to determine the Intraocular lens Power Calculation for the IOL lens implant. I have interpreted and agree with the calculation of the IOL as listed below. Implants: Implant Name Type Inv. Item Serial No. Team Driver Lot No. LRB No. Used Action Model No. [id number] [employer] - [id number] Intraocular Lens [id number] [employer] [id number] [employer] Left 1 Implanted [id number] Drains: None. Complications: None. I performed the entire procedure. Comanage with Dr. Mujica; [facility] POD #1. SIGNATURE: Kaye Kent MD PATIENT NAME: Padmini Lloyd DATE: May 20, 2024 TIME: 11:09 AM PAGER/CONTACT #: [facility] PT Coag (Bld) [Time]on 05-12 INR Coag (PPP) [Relative time] 1.8 {INR} High [facility] Comment on above: Reference Range 0.9- 1.1 Moderate-intensity Warfarin Therapy 2.0-3.0 Higher-intensity Warfarin Therapy 3.0-4.0 Interpretation and review of laboratory results Abnormal [facility] PT Coag (PPP) [Time] 18.5 s High [facility] Comment on above: For additional infor faith, please refer to http://education.Slots.com/faq/ZOF587 (This link is being provided for informational/ educational purposes only.) FASTING:NO FASTING: NO QUEST Performing Organizat ion Information Site ID: QPT Name: [facility] Address: [address] [place] [address], [address] [place] [id number] Director: Georges Yin MD [facility] Calcium [Mass/volume] in Ser um or PlasmaOrdered By: Juan Cook on 05-06-2024 Calcium [Mass/Vol] 8.8 mg/dL Normal 8.6-10.3 [facility] Comment on above: Performed By: #### V [id number], [place] #### [facility] [id number] [facility] Parathyrin.intact [Mass/volu me] in Serum or PlasmaOrdered By: Juan Cook on 05-06-2024 Parathyrin.intact [Mass/Vol] 56.3 pg/mL [facility] Parathyroid Hormone Intacton 05-06-2024 Parathyroid Hormone Intact 56.3 pg/mL Normal [facility] Comment on above: Result Comment: PERF ORMED BY: [place] [address] PATHOLOGIST [employer]IST AASHISH FLETCHER M.D. Performed By: #### P TH #### [address] [address] [facility] Vitamin D 25 Hydroxy Totalon 05-06-2024 Vitamin D 25 Hydroxy Total 30.7 ng/mL Normal 30-100 [facility] Comment on above: Result Comment: FABIANO MIN D STATUS 25(OH)VITAMIN D RANGE (ng/mL) Deficient <20 Insufficient 20 to <30 Sufficient 30 to 100 Reference: Karri MF,Corwin NC, Adonis JOSHUA, et al. Evaluation,treatment, and prevention of vitamin D deficiency; an Endocrine Society clinical practice guideline. JCEM. 2010; 96(7):1911-30. PERFORMED BY: [place] [address] PATHOLOGIST [employer]IST AASHISH FLETCHER M.D. Performed By: #### V [id number], [place] #### [facility] [address] [place] [id number] [facility] Vitamin D+Metabolites [Mass/ volume] in Serum or PlasmaOrdered By: Juan Cook on 05-06-2024 Vitamin D+Metabolites [Mass/Vol] 30.7 ng/mL 30-100 [facility] Comment on above: VITAMIN D STATUS 25( [place])VITAMIN D RANGE (ng/mL) Deficient <20 Insufficient 20 to <30Sufficient 30 to 100Reference: Karri MF,Corwin NC, Adonis JOSHUA, et al. Evaluation,treatment, and prevention of vitamin D deficiency; an Endocrine Society clinical practice guideline. JCEM. 2010; 96(7):1911-30. [facility] ONLY - DIAGNOSTIC OU ( BOTH EYES)on 05-05-2024 [facility] Radiology Study observation (narrative) [facility] HISTORY PHYSICALon HISTORY PHYSICAL HNO ID: [id number] Author: PATRICIA BRAND APRN.PARALEGAL ASSISTANT Service: ? Author Type: Nurse Practitioner Type: H&P Filed: 05/05/2024 13:21 Note Text: HISTORY AND PHYSICAL EXAMINATION SERVICE DATE: 05/05/2024 SERVICE TIME: 1:03 PM PRIMARY CARE PHYSICIAN: Jarred Arias MD, MD REASON FOR VISIT: Padmini Lloyd is a 74 year old male who is scheduled for Left - PHACOEMULSIFICATION CATARACT IMPLANT INTRAOCULAR LENS W/O ENDOSCOPIC CYCLOPHOTOCOAGULATION Left - OPHTHALMIC BIOMETRY BY PARTIAL COHERENCE INTERFEROMETRY W/INTRAOCULAR LENS POWER CALCULATION at the request of Dr. Kaye Kent for consultation. My final recommendation will be communicated back to the requesting physician by way of shared medical record or letter. 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 Reid Activity Status Index: METS: Do moderate work around the house, such as vacuuming, sweeping floors, or carrying in groceries (3.50 METs) Climb a flight of stairs or walk up a hill (5.50 METs) DASI Score: 9 Patient denies any chest pain or undue shortness of breath with the above physical activity. STOP-Bang Score: Has or is being treated for high blood pressure Patient over 50 years old Male patient Denies snoring loudly Denies feeling tired, fatigued, or sleepy during the daytime Has not been observed to stop breathing or choking/gasping during sleep BMI less than or equal to 35 kg/m2 Does not have a large neck STOP-Bang Score: 3 [id number] Score: Age: 65-74 Sex: male CHF history: No Hypertension history: Yes Stroke/TIA/thromboembolism history: Yes Vascular disease history: No Diabetes history: No [id number] Score: 4 ARISCAT Score: Age: 51-80 Preoperative SpO2: >=96% Respiratory infection in the last month: No Preoperative anemia: Yes Surgical incision: peripheral Duration of surgery: <2 hrs Emergency procedure: No ARISCAT Score: 14 ANESTHESIA FINDINGS: Intubation History: No history of difficult intubation Significant Anesthesia Considerations: none Airway History: No history of difficult airway Airway Exam: General: Normal appearance There is no height or weight on file to calculate BMI. Mallampati Score is CLASS II ULBT: Class I - Lower incisors can bite the upper lip above the hair line Neck: Normal appearance and function, Distance from hyoid to mentum during neck extension is at least 3 finger breaths Mouth: Normal tongue size and Mouth opening greater than 2 finger breaths Dentition: Intact and Caps/crowns Airway History: No abnormal airway history Planned Anesthetic: Per anesthesia choice Prepared for surgery: This patient is optimally prepared for surgery. CONSULTS: Patient does not require consults for optimization at this time. The Following Tests/Procedures Have Been Initiated: Labs not indicated per [facility] protocol, EKG not indicated per [facility] protocol Planned Anesthetic: Per anesthesia choice Subjective CHIEF COMPLAINT: Visual Changes HPI: 74 year old year old presents today with complaints of difficulty with vision for > 3 months. Found to have cataract on exam. Denies pain. No relieving factors. PAST MEDICAL HISTORY Diagnosis Date HTN (hypertension) Lymphoma of eye region (HCC) Left PAST SURGICAL HISTORY Procedure Laterality Date PAST SURGICAL HISTORY OF left hand skin graft--table saw accident FAMILY HISTORY Problem Relation Age of Onset Colon Cancer Father Prostate Cancer Father Macular Degen Mother other (Leukemia) Brother SOCIAL HISTORY: Social History Tobacco Use Smoking status: Former Current packs/day: 0.00 Average packs/day: 1 pack/day for 15.0 years (15.0 ttl pk-yrs) Types: Cigarettes Start date: 09/10/1969 Quit date: 09/10/1984 Years since quittin.6 Smokeless tobacco: Never Vaping Use Vaping status: Never Used Substance Use Topics Alcohol use: Not Currently Drug use: Never Prior to Admission medications as of 05/05/24 1307 Medication Sig Last Dose Taking potassium citrate ER (UROCIT-K) 10 mEq (1,080 mg) Take 2,160 mg by mouth two times a day. Taking Yes gentamicin (GENTAK) 0.3 % ophthalmic solution One drop in the OPERATIVE EYE only four times a day starting the day before surgery and for three days after Taking Yes ZINC ORAL Take 25 mg by mouth. Taking Yes Magnesium 250 mg tab Take 2 (more content not included)... Normal [facility] IOL BIOMETRY W/ IOL CALC OU (BOTH EYES)on 05-05-2024 [facility] Radiology Study observation (narrative) [facility] 04-16-2024 CNPN Telephone (OPHTLN) -- PADMINI LLOYD ([id number]) 1950 M Date Time Provider Department 04/16/24 KAYE KENT OPHTLN During your visit today, we recorded the following information about you: Kenneth Shen 04/16/2024 12:45 PM Signed Called pt to assist in scheduling surgery left message for patient to return call to [phone] to schedule surgery. Kaye Kent MD P Ln Opht Surg In House Counsel offered cataract Surgery OS. Co-manage with Dr. Mujica. Offered Phacoemulsification cataract extraction with insertion of intraocular lens by Dr. [place] OS only. OD when qualifies by BAT. Patient wishes to proceed with surgery. All questions were answered. A-scan to be performed pre-operatively. Referred by Dr. Mujica, Thank you for your kind referral! Allergies: see list - Aim: [place] OS. - Anesthesia: Topical with MAC - Diabetes Mellitus No - Blood thinner use Yes - Flomax/alpha-debbi? No - Able to lie supine Yes - Wants versed Yes - Happy for prayer Yes - Warned of IOL-induced photopsias Yes - Advised there is no guarantee of freedom from glasses Yes; -Discussed possible increased sensitivity and starbursting when exposed to flickering lights such as LED and fluorescent lights after cataract surgery, which usually decreases with time. - Discussed toric Intraocular lens not covered by insurance Yes $1400 per eye - Toric candidate: Offer Toric lens if patient qualifies by Ultrasound measurements. Without the toric IOL, patient was told that they will still need to wear glasses to correct residual astigmatism at all distances. Even with toric IOL, we cannot guarantee no residual astigmatism. - Contact lens use No Ramila Cardona PSS 04/16/2024 1:34 PM Signed Patient returned call, please call back at [phone]. Kenneth Shen 04/16/2024 2:11 PM Signed Spoke with patient he is now scheduled Comanaged postops with Dr. Mujica are: 05/14/24 @ 12:15 pm 05/20/24 @ 12:15 pm Stephany Rincon 05/12/2024 11:28 AM Signed 05/[address] Kent being out sick. Spoke to patient. Surgery is rescheduled to 05/20. Called and LVM for Dr. Mujica' office to make them aware of the reschedule date. Asked them to call us back at [phone] to reschedule post ops. Stephany Rincon 05/13/2024 3:32 PM Signed Comanaged postops with Dr. Mujica are: 05/21/24 @ 1:00 pm 05/27/24 @ 12:15 pm Called and spoke to patient and he is aware of post ops Allergies As of Date: 04/16/2024 Noted Allergy Reaction AVELOX (MOXIFLOXACIN HCL) 10/23/2016 1 - Mental Status Change BACTRIM (SULFAMETHOXAZOLE-TRIMETH* 07/16/2018 1 - Mental Status Change 14 - Other: See Comments Comments: Renal Failure QUINOLONES 07/11/2021 14 - Other: See Comments Comments: Confusion SULFA (SULFONAMIDE ANTIBIOTICS) 07/11/2021 14 - Other: See Comments Comments: Abdomin pain Date Reviewed: 04/14/2024 Reviewed by: Maggie Ocasio OD - Fully Assessed Reason for Visit: Schedule Surgery [1330] Prescriptions as of 05/13/2024 - potassium citrate ER (UROCIT-K) 10 mEq (1,080 mg) Take 2,160 mg by mouth two times a day. - gentamicin (GENTAK) 0.3 % ophthalmic solution One drop in the OPERATIVE EYE only four times a day starting the day before surgery and for three days after - ZINC ORAL Take 25 mg by [...] once daily. 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 Patients having hematocrit values >55% require a special collection tube for coagulation studies. Please contact the laboratory at [phone] for redraw instructions. Coagulation Profileon 2023 aPTT Coag (Bld) [Time] 36.4 s Normal 25.1-36.5 [facility] Comment on above: Result Comment: A he matocrit value greater than 55% may lead to inaccurate results in coagulation testing. Patients having hematocrit values >55% require a special collection tube for coagulation studies. Please contact the laboratory at [phone] for redraw instructions. PERFORMED BY: [place] [address] PATHOLOGIST [employer]IST AASHISH FLETCHER M.D. Performed By: #### C FABIÁN, BMP #### [address] INR in Platelet poor plasma by Coagulation assayOrdered By: David Olmos on 02-13-2024 INR Coag (PPP) [Relative time] 1.4 {INR} Normal [facility] Comment on above: INR Therapeutic Rang [...] with mechanical heart valves: 3 - 4.5 Result Comment: INR Therapeutic Range A) Pre- [...] Performed By: #### C BC, BMP #### [address] [place] [address] [facility] Akash 02-13-2024 L Specimen: [id number] Received: 02/13/24 Status: PATRICIA Ames Num: [id number] Spec Type: Surgical Subm Dr: Domenico Gipson MD Tissues: A Gross Only (PROSTATIC STONE) Procedures: Level 1 Gross Age/ Patient Sex Location Account Attending Physician Padmini Lloyd 73/M [place] [id number] Domenico Gipson MD SPEC NUM: [id number] RECD: 02/13/24 STATUS: PATRICIA CHOUDHARYGalina NUM: [id number] TANESHA: 02/13/[address]: Domenico Gipson MD ENTERED: 02/13/24 [facility] DR: SPEC TYPE: Surgical DEPT: S ORDERED: Level 1 Gross ORDERED: Level 1 Gross Pathological Diagnosis Prostate stones: - Gross examination only, see the gross description Clinical Information BPH Gross Description Received fresh labeled with the patient's name, date of and prostate stones are multiple (greater than 10) irregularly shaped mcbride stones ranging from 0.4 to 0.1 cm in greatest dimension. No tissue is present. No sections are submitted. The specimen is for gross only examination. A gross photo is included. CPT Codes 73762 STONES Specimen: [id number] Received: 02/13/24 Status: PATRICIA Justine Num: [id number] Spec Type: Surgical Subm Dr: Domenico Gipson MD Tissues: A Gross Only (PROSTATIC STONE) Procedures: Level 1 Gross Patient: Padmini Lloyd [id number] (Continued) Signed (signature on file) Theron Moser MD 02/17/24 1031 Normal [facility] Prothrombin time (PT)Ordered By: David Olmos on 02-13-2024 PT Coag (PPP) [Time] 15.8 s High 9.0-12.9 [facility] Comment on above: A hematocrit value g reater than 55% may lead to inaccurate results in coagulation testing. Patients having hematocrit values >55% require a special collection tube for coagulation studies. Please contact the laboratory at [phone] for redraw instructions. Result Comment: A he matocrit value greater than 55% may lead to inaccurate results in coagulation testing. Patients having hematocrit values >55% require a special collection tube for coagulation studies. Please contact the laboratory at [phone] for redraw instructions. Performed By: #### C BC, BMP #### [address] Calcium [Mass/volume] in Ser um or PlasmaOrdered By: Juan Cook on 01-31-2024 Calcium [Mass/Vol] 8.8 mg/dL Normal 8.6-10.3 [facility] Comment on above: Result Comment: PERF ORMED BY: [place] [address] PATHOLOGIST [employer] AASHISH FLETCHER M.D. Performed By: #### C A #### [address] Parathyrin.intact [Mass/volu me] in Serum or PlasmaOrdered By: Juan Cook on 01-31-2024 Parathyrin.intact [Mass/Vol] 75.0 pg/mL [facility] Parathyroid Hormone Intacton 01-31-2024 Parathyroid Hormone Intact 75.0 pg/mL Normal [facility] Comment on above: Result Comment: PERF ORMED BY: [place] [address] PATHOLOGIST [employer] AASHISH FLETCHER M.D. Performed By: #### P TH #### [address] Automated basophil %Ordered By: Domenico Gipson on 01-29-2024 Basophils/100 WBC (Bld) 0.8 % Normal . [facility] Comment on above: Performed By: #### C BC, BMP #### [address] Automated basophil countOrde red By: Domenico Gipson on 01-29-2024 Basophils (Bld) [#/Vol] 0.0 10*3/uL Normal 0.0-0.2 [facility] Comment on above: Result Comment: PERF ORMED BY: [place] [address] PATHOLOGIST [employer] AASHISH FLETCHER M.D. Performed By: #### C BC, BMP #### [address] Automated blood monocyte cou ntOrdered By: Domenico Gipson on 01-29-2024 Monocytes (Bld) [#/Vol] 0.7 10*3/uL Normal 0.0-0.8 [facility] Comment on above: Performed By: #### C BC, BMP #### [address] Automated eosinophil %Ordere d By: Domenico Gipson on 01-29-2024 Eosinophils/100 WBC (Bld) 0.5 % Normal . [facility] Comment on above: Performed By: #### C BC, BMP #### [address] Automated eosinophil countOr dered By: Domenico Gipson on 01-29-2024 Eosinophils (Bld) [#/Vol] 0.0 10*3/uL Normal 0.0-0.45 [facility] Comment on above: Performed By: #### C BC, BMP #### [address] Automated monocyte %Ordered By: Doemnico Gipson on 01-29-2024 Monocytes/100 WBC (Bld) 12.2 % Normal . [facility] Comment on above: Performed By: #### C BC, BMP #### [address] Automated neutrophil %Ordere d By: Domenico Gipson on 01-29-2024 Neutrophils/100 WBC (Bld) 52.6 % Normal . [facility] Comment on above: Performed By: #### C BC, BMP #### [address] Basic Metabolic Panelon 01-04 GFR/1.73 sq M.predicted MDRD (S/P/Bld) [Vol rate/Area] mL/min/{1.73_m2} Normal [facility] Comment on above: Performed By: #### C BC, BMP #### [address] Calcium [Mass/volume] in Ser um or PlasmaOrdered By: Domenico Gipson on 01-29-2024 Calcium [Mass/Vol] 9.1 mg/dL Normal 8.6-10.3 [facility] Comment on above: Result Comment: PERF ORMED BY: [place] [address] PATHOLOGIST [employer] AASHISH FLETCHER M.D. Performed By: #### C BC, BMP #### [address] Carbon dioxide, total [Moles /volume] in Serum or PlasmaOrdered By: Domenico Gipson on 01-29-2024 CO2 [Moles/Vol] 27.7 mmol/L Normal 21.0-31.0 [facility] Comment on above: Performed By: #### C BC, BMP #### [address] Chloride [Moles/volume] in S katelin or PlasmaOrdered By: Domenico Gipson on 01-29-2024 Chloride [Moles/Vol] 107 mmol/L Normal 98-107 [facility] Comment on above: Performed By: #### C BC, BMP #### [address] Complete Blood Count Auto Di ffon 01-29-2024 Mean Corpuscular HGB Conc 33.2 g/dL Normal 32.5-35.6 [facility] Comment on above: Performed By: #### C BC, BMP #### [address] NRBC% 0.2 /100{WBC} Normal 0-0.5 [facility] Comment on above: Performed By: #### C BC, BMP #### [address] Creatinine [Mass/volume] in Serum or PlasmaOrdered By: Domenico Gipson on 01-29-2024 Creatinine [Mass/Vol] 1.19 mg/dL Normal 0.70-1.30 [facility] Comment on above: Performed By: #### C BC, BMP #### [address] ECG 12 lead ECGon 01-29-2024 ECG 12 lead ECG [facility] [place] [address] [place] [address] Electrocardiograph Report Signed Patient: Padmini Lloyd MR#: [id number] : 1950 Acct:[id number] Age/Sex: 73 / M ADM Date: 01/29/24 Loc: PS Room: Type: [facility] Attending Dr: Domenico Gipson MD Ordering Provider: Domenico Gipson MD Date of Service: 01/29/24 ECG/ECG 12 lead ECG: surgery 02/12 Copies to: Test Reason : Blood Pressure : / mmHG Vent. Rate : 074 BPM Atrial Rate : 074 BPM P-R Int : 162 ms QRS Dur : 102 ms QT Int : 396 ms P-R-T Axes : 027 -42 032 degrees QTc Int : 439 ms Normal sinus rhythm Left axis deviation Moderate voltage criteria for LVH, may be normal variant Abnormal ECG When compared with ECG of 07-MAY-2023 08:46, No significant change was found Confirmed by MATHEW CALIX [facility] ([id number]) on 01/29/2024 12:48:44 PM Referred By: APURVA Electronically Signed By:JAYDEN GLASER MD FAC Transcribed By: GIANNI Signed By Jimmie Glaser MD 01/29/24 1248 Normal [facility] Erythrocyte distribution wid th [Ratio] by Automated countOrdered By: Domenico Gipson on 01-29-2024 Erythrocyte distribution width (RBC) [Ratio] 14.7 % Normal 12.0-14.8 [facility] Comment on above: Performed By: #### C FABIÁN, BMP #### [facility] [address] [place] [address] [place] Erythrocytes [#/volume] in B lood by Automated countOrdered By: Domenico Gipson on 01-29-2024 RBC (Bld) [#/Vol] 5.04 10*6/uL Normal 3.90-5.60 [facility] Comment on above: Performed By: #### C FABIÁN, BMP #### [facility] [address] [place] [id number] [place] Glucose [Mass/volume] in Ser um or PlasmaOrdered By: Domenico Gipson on 01-29-2024 Glucose [Mass/Vol] 97 mg/dL Normal 70-100 [facility] Comment on above: ADA recommended refe rence rangeRandom Glucose Reference Range is dependent on time and content of last meal. Glucose of more than 200 mg/dL in a nonstressed, ambulatory subject supports the diagnosis of Diabetes Mellitus. Result Comment: [place] om Glucose Reference Range is dependent on time and content of last meal. Glucose of more than 200 mg/dL in a nonstressed, ambulatory subject supports the diagnosis of Diabetes Mellitus. ADA recommended reference range Performed By: #### C FABIÁN, BMP #### [address] Hematocrit [Volume Fraction] of Blood by Automated countOrdered By: Domenico Gipson on 01-29-2024 Hematocrit (Bld) [Volume fraction] 44.8 % Normal 38.8-50.0 [facility] Comment on above: Performed By: #### C FABIÁN, BMP #### [address] Hemoglobin [Mass/volume] in BloodOrdered By: Domenico Gipson on 01-29-2024 Hemoglobin (Bld) [Mass/Vol] 14.9 g/dL Normal 13.0-17.0 [facility] Comment on above: Performed By: #### C FABIÁN, BMP #### [address] Leukocytes [#/volume] correc denise for nucleated erythrocytes in Blood by Automated counOrdered By: Domenico Gipson on 01-29-2024 WBC corrected for nucl RBC Auto (Bld) [#/Vol] 5.6 10*3/uL 4.1-10.5 [facility] Leukocytes [#/volume] in Blo od by Automated countOrdered By: Domenico Gipson on 01-29-2024 WBC (Bld) [#/Vol] 5.6 10*3/uL Normal 4.1-10.5 [facility] Comment on above: Performed By: #### C BC, BMP #### [place] [address] [place] Lymphocytes [#/volume] in Bl ood by Automated countOrdered By: Domenico Gipson on 06-26-2024 Lymphocytes (Bld) [#/Vol] 1.9 10*3/uL Normal 1.00-4.8 [facility] Comment on above: Performed By: #### C FABIÁN, BMP #### [address] Lymphocytes/100 leukocytes i n Blood by Automated countOrdered By: Domenico Gipson on 01-29-2024 Lymphocytes/100 WBC (Bld) 33.9 % Normal . [facility] Comment on above: Performed By: #### C FABIÁN, BMP #### [address] MCH [Entitic mass] by Automa denise countOrdered By: Domenico Gipson on 01-29-2024 MCH (RBC) [Entitic mass] 29.5 pg Normal 27.5-35.2 [facility] Comment on above: Performed By: #### C FABIÁN, BMP #### [address] MCHC Auto (RBC) [Mass/Vol]Or dered By: Domenico Gipson on 01-29-2024 MCHC (RBC) [Mass/Vol] 33.2 g/dL 32.5-35.6 [facility] MCV [Entitic volume] by Auto mated countOrdered By: Domenico Gipson on 01-29-2024 MCV (RBC) [Entitic vol] 88.9 fL Normal 83.5-101 [facility] Comment on above: Performed By: #### C FABIÁN, BMP #### [address] Neutrophils [#/volume] in Bl ood by Automated countOrdered By: Domenico Gipson on 01-29-2024 Neutrophils (Bld) [#/Vol] 3.0 10*3/uL Normal 1.8-7.7 [facility] Comment on above: Performed By: #### C FABIÁN, BMP #### [address] No Panel InformationOrdered By: Domenico Gipson on 01-29-2024 Estimated GFR (CKD-EPI) > 60.0 mL/Min [facility] Creatinine Clearance (Chem N/A [facility] Nucleated erythrocytes [Pres ence] in Blood by Automated countOrdered By: Domenico Gipson on 01-29-2024 Nucleated RBC Auto Ql (Bld) 0.2 /100{WBC} 0-0.5 [facility] Platelet mean volume [Entiti c volume] in Blood by Automated countOrdered By: Domenico Gipson on 01-29-2024 Platelet mean volume (Bld) [Entitic vol] 7.2 fL Normal 6.6-10.1 [facility] Comment on above: Performed By: #### C BC, BMP #### [facility] [address] Platelets [#/volume] in Bloo d by Automated countOrdered By: Domenico Gipson on 01-29-2024 Platelets (Bld) [#/Vol] 242 10*3/uL Normal 150-450 [facility] Comment on above: Performed By: #### C BC, BMP #### [address] Potassium [Moles/volume] in Serum or PlasmaOrdered By: Domenico Gipson on 01-29-2024 Potassium [Moles/Vol] 4.5 mmol/L Normal 3.5-5.1 [facility] Comment on above: Performed By: #### C BC, BMP #### [address] Serum or plasma anion gap de terminationOrdered By: Domenico Gipson on 01-29-2024 Anion gap [Moles/Vol] 8.8 mmol/L Normal 6.0-15.0 [facility] Comment on above: Performed By: #### C BC, BMP #### [place] [address] [place] Sodium [Moles/volume] in Ser um or PlasmaOrdered By: Domenico Gipson on 01-29-2024 Sodium [Moles/Vol] 139 mmol/L Normal 136-145 [facility] Comment on above: Performed By: #### C BC, BMP #### [place] [address] [place] Urea nitrogen [Mass/volume] in Serum or PlasmaOrdered By: Domenico Gipson on 01-29-2024 Urea nitrogen [Mass/Vol] 19 mg/dL Normal - [facility] Comment on above: Performed By: #### C BC, BMP #### [facility] [address] [place] [id number] [facility] BLOOD BANKOrdered By: Zbigniew Llanes on 11-26-2023 ABO/Rh Interp Positive Invalid Interpretation Code [facility] BB Subsection ABSC Gel Interp Negative (11/26/23 6:17 AM) Normal [facility] BB Subsection COAGULATIONOrdered By: Tony Valencia on 11-26-2023 aPTT Coag (PPP) [Time] 35.3 s Normal 25.1 - 36.5 second(s) [facility] Auto Coag Comment on above: Interpretive Data: Chastity veliz 15 days - 4 weeks 1 - [...] the same coagulation reagent and instrumentation as [facility]. Currently there are no coagulation studies available worldwide for children to 14 days, and no normal ranges. Heparin therapeutic range (represented by Anti-Factor Xa activity of 0.2 - 0.4 U/mL) corresponds to PTT of 56.6 - 109.0 sec. INR Coag (PPP) [Relative time] 1.17 {INR} Invalid Interpretation Code [facility] Auto Coag Comment on above: Interpretive Data: I NR results are specifically intended to assess patients stabilized on long-term Anticoagulation therapy suggested INR s Less Intensive Anticoagulation 2.0 3.0 Conventional Range 3.0 4.5 PT Coag (PPP) [Time] 13.1 s High 9.4 - 1 2.5 second(s) [facility] Auto Coag Comment on above: Interpretive Data: [...] the same coagulation reagent and instrumentation as [facility]. Currently there are no coagulation studies available worldwide for children to 14 days, and no normal ranges. BLOOD BANKOrdered By: Peggy Elder on 11-11-2023 ABO/Rh Retype Interp Positive Invalid Interpretation Code [facility] BB Subsection CHEMISTRYOrdered By: SYSTEM SYSTEM on 11-11-2023 Albumin [...] mg/mg Normal 10 - 20 Remisol Chem HEMATOLOGYOrdered By: SYSTEM SYSTEM on 11-11-2023 Basophils/100 [...] Normal 4.0 - 11.0 E9/L Remisol Heme URINALYSISOrdered By: SYSTEM SYSTEM on 11-11-2023 Color (U) Yellow 1 (11/11/23 11:01 AM) Normal Yellow [facility] UA Auto SS Comment on above: Interpretive Data: M icroscopic readings are only performed on those samples that meet specific criteria set forth by [facility]. Glucose (U) [Mass/Vol] Negative Normal Negat [...] Urobilinogen (U) [Mass/Vol] Negative Normal Negativemg /dL [facility] UA Auto SS URINALYSISOrdered By: Criss Medley on 11-11-2023 UA Spec Desc Clean Catch (11/11/23 11:01 AM) Normal [facility] UA Auto SS Calcium [Mass/volume] in Ser um or PlasmaOrdered By: Juan Cook on 10-29-2023 Calcium [Mass/Vol] 9.1 mg/dL Normal 8.6-10.3 [facility] Comment on above: Result Comment: PERF ORMED BY: [place] [address] PATHOLOGIST [employer] AASHISH FLETCHER M.D. Performed By: #### C A #### [address] Parathyrin.intact [Mass/volu me] in Serum or PlasmaOrdered By: Juan Cook on 10-29-2023 Parathyrin.intact [Mass/Vol] 55.9 pg/mL [facility] Parathyroid Hormone Intacton 10-29-2023 Parathyroid Hormone Intact 55.9 pg/mL Normal [facility] Comment on above: Result Comment: PERF ORMED BY: [place] [address] PATHOLOGIST [employer] JIANLAN SUN M.D. Performed By: #### C A #### [facility] [address] [place], [place] [id number] [place] Activated partial thrombopla stin time (aPTT) in platelet poor plasma by coagulation aOrdered By: Anthony Thakur on 10-22-2023 aPTT Coag (PPP) [Time] 30.3 s 25.1-36.5 [facility] Comment on above: A hematocrit value g reater than 55% may lead to inaccurate results in coagulation testing. Patients having hematocrit values >55% require a special collection tube for coagulation studies. Please contact the laboratory at [phone] for redraw instructions. Calciumon 10-22-2023 Calcium [Mass/Vol] 11.2 mg/dL High 8.6-10.3 [facility] Comment on above: Performed By: #### C A #### [facility] [address] [place], [place] [id number] [facility] Calcium [Mass/volume] in Ser um or PlasmaOrdered By: Juan Cook on 10-22-2023 Calcium [Mass/Vol] 10.9 mg/dL High 8.6-10.3 [facility] Comment on above: Order Comment: Comme nt Run stat and call to Dr. Cook Result Comment: PERF ORMED BY: [place] [address] PATHOLOGIST [employer] AASHISH FLETCHER M.D. Performed By: #### P TH #### [facility] [address] [place], [place] [id number] [facility] INR in Platelet poor plasma by Coagulation assayOrdered By: Anthony Thakur on 10-22-2023 INR Coag (PPP) [Relative time] 1.0 {INR} Normal [facility] Comment on above: INR Therapeutic Rang [...] with mechanical heart valves: 3 - 4.5 Result Comment: INR Therapeutic Range A) Pre- [...] Performed By: #### C BC, BMP #### [facility] [address] [place] [address] [place] Intact PTH IO Additionalon 0 10-22-2023 Intact PTH IO Additional 20.1 pg/mL Normal [facility] Comment on above: Order Comment: Minut es from excision: NA Result Comment: PERF ORMED BY: [place] [address] PATHOLOGIST [employer]IST AASHISH FLETCHER M.D. Performed By: #### P TH #### [place] [id number] [place] Intact PTH IO Post Induction on 10-22-2023 Intact PTH IO Post Induction 178.8 High 12.0-88.0 [facility] Comment on above: Result Comment: PERF ORMED BY: [place] [address] PATHOLOGIST [employer]IST AASHISH FLETCHER M.D. Performed By: #### C BC, BMP #### [place] [id number] [place] Intact PTH Intraoperative 10 Mon 10-22-2023 Intact PTH Intraoperative 10 M 44.4 pg/mL Normal [facility] Comment on above: Order Comment: Comme nt drawn at 1406 Result Comment: PERF ORMED BY: [address] [address] PATHOLOGIST [employer]IST AASHISH FLETCHER M.D. Performed By: #### P TH #### [facility] [address] [place] [address] [place] Intact PTH Intraoperative 10 M 304.0 pg/mL High [facility] Comment on above: Result Comment: PERF ORMED BY: [address] [address] PATHOLOGIST [employer]IST AASHISH FLETCHER M.D. Performed By: #### C A #### [place] [id number] [facility] Intact PTH Intraoperative 15 Mon 10-22-2023 Intact PTH Intraoperative 15 M 175.6 pg/mL Normal [facility] Comment on above: Result Comment: PERF ORMED BY: [place] [address] PATHOLOGIST [employer]IST AASHISH FLETCHER M.D. Performed By: #### C A #### [facility] [address] [place], [place] [address] [facility] Akash 10-22-2023 L Specimen: [id number] Received: 10/22/23 Status: PATRICIA Ames Num: [id number] Spec Type: Surgical Subm Dr: Juan Cook DO Tissues: A Parathyroid Gland (LT INFERIOR PARATHYROID GLAN) B Parathyroid Gland (LT SUPERIOR PARATHYROKID SIA) Procedures: HE/2, Gross/Micro L4/2, FS HE/4 Age/ Patient Sex Location Account Attending Physician Padmini Lloyd 73/M [place] [id number] Juan Cook DO SPEC NUM: [id number] RECD: 10/22/23 STATUS: PATRICIA AMES NUM: [id number] TANESHA: 10/22/[address]: Juan Cook DO ENTERED: 10/22/23 [facility] DR: SPEC TYPE: Surgical DEPT: S ORDERED: [...] submitted in 1 cassette as follows: Specimen: [id number] Received: 10/22/23 Status: PATRICIA Ames Num: [id number] Spec Type: Surgical Subm Dr: Juan Cook DO Tissues: A Parathyroid Gland (LT INFERIOR PARATHYROID GLAN) B Parathyroid Gland (LT SUPERIOR PARATHYROKID SIA) Procedures: HE/2, Gross/Micro L4/2, FS HE/4 Patient: Padmini Lloyd [id number] (Continued) Specimen: [id number] Received: 10/22/23 (Continued) Gross Description (Continued) Signed (signature on file) Christian Alvarez MD 10/23/23 1053 Specimen: Received: 10/22/23 Status: PATRICIA [place]es Num: [id number] Spec Type: Surgical Subm Dr: Juan Cook DO Tissues: A Parathyroid Gland (LT INFERIOR PARATHYROID GLAN) B Parathyroid Gland (LT SUPERIOR PARATHYROKID SIA) Procedures: HE/2, Gross/Micro L4/2, FS HE/4 Patient: HaroonevertPadmini [id number] (Continued) Specimen: Received: 10/22/23 (Continued) Gross Description (Continued) B1 - Frozen section remnant Intraoperative Diagnosis A. Left inferior parathyroid adenoma: - Oncocytic lesion with follicular architecture, favor parathyroid on frozen section. Reported by Dr. Alvarez 10/22/2023 at 1:36 PM B. Left superior parathyroid adenoma: - 0.5 g enlarged, hypercellular parathyroid gland. Reported by Dr. Alvarez 10/22/2023 at 2:13 PM CPT Codes 16370f8, 69787p4 Specimen: [id number] Received: 10/22/23 Status: PATRICIA Choudharygalina Num: [id number] Spec Type: Surgical Subm Dr: Juan Cook DO Tissues: A Parathyroid Gland (LT INFERIOR PARATHYROID GLAN) B Parathyroid Gland (LT SUPERIOR PARATHYROKID SIA) Procedures: HE/2, Gross/Micro L4/2, FS HE/4 Patient: Padmini Lloyd [id number] (Continued) Signed (signature on file) Christian Alvarez MD 10/23/23 1053 Normal [facility] Parathyrin.intact [Mass/volu me] in Serum or PlasmaOrdered By: Juan Cook on 10-22-2023 Parathyrin.intact [Mass/Vol] 6.8 pg/mL [facility] Parathyrin.intact [Mass/volu me] in Serum or Plasma --10 minutes post excisionOrdered By: Juan Cook on 10-22-2023 Parathyrin.intact 10 Min post excision [Mass/Vol] 44.4 pg/mL [facility] Parathyrin.intact [Mass/volu me] in Serum or Plasma --post XXX challengeOrdered By: Juan Cook on 10-22-2023 Parathyrin.intact post Unsp challenge [Mass/Vol] 20.1 pg/mL [facility] Parathyrin.intact post Unsp challenge [Mass/Vol] 175.6 pg/mL [facility] Parathyrin.intact [Mass/volu me] in Serum or Plasma --post excisionOrdered By: Juan Cook on 10-22-2023 Parathyrin.intact post excision [Mass/Vol] 178.8 pg/mL .0-88.0 [facility] Parathyroid Hormone Intacton 10-22-2023 Parathyroid Hormone Intact 6.8 pg/mL Low [facility] Comment on above: Order Comment: Gary traore Run stat and call to Dr. Cook Result Comment: PERF ORMED BY: [place] [address] PATHOLOGIST [employer]IST AASHISH FLETCHER M.D. Performed By: #### P TH #### [address] Parathyroid Hormone Intact 165.8 pg/mL High [facility] Comment on above: Result Comment: PERF ORMED BY: [place] [address] PATHOLOGIST [employer]IST AASHISH FLETCHER M.D. Performed By: #### C A #### [address] [address] [facility] Partial Thromboplastin Timeo n 10-22-2023 aPTT Coag (Bld) [Time] 30.3 s Normal 25.1-36.5 [facility] Comment on above: Result Comment: A he matocrit value greater than 55% may lead to inaccurate results in coagulation testing. Patients having hematocrit values >55% require a special collection tube for coagulation studies. Please contact the laboratory at [phone] for redraw instructions. PERFORMED BY: [address] [address] PATHOLOGIST [employer]IST AASHISH FLETCHER M.D. Performed By: #### C BC, BMP #### [address] [address] [facility] Prothrombin time (PT)Ordered By: Anthony Thakur on 10-22-2023 PT Coag (PPP) [Time] 11.8 s Normal 9.0-12.9 [facility] Comment on above: A hematocrit value g reater than 55% may lead to inaccurate results in coagulation testing. Patients having hematocrit values >55% require a special collection tube for coagulation studies. Please contact the laboratory at [phone] for redraw instructions. Result Comment: A he matocrit value greater than 55% may lead to inaccurate results in coagulation testing. Patients having hematocrit values >55% require a special collection tube for coagulation studies. Please contact the laboratory at [phone] for redraw instructions. Performed By: #### C BC, BMP #### [address] [address] [facility] Thyrotropin [Units/volume] i n Serum or PlasmaOrdered By: Juan Cook on 10-22-2023 TSH Qn 1.15 m[IU]/L Normal 0.45-5.33 [facility] Comment on above: Result Comment: PERF ORMED BY: [address] [address] PATHOLOGIST [employer]IST JIANLAN SUN M.D. Performed By: #### C A #### [address] Automated basophil %Ordered By: Juan Cook on 10-11-2023 Basophils/100 WBC (Bld) 0.4 % Normal . [facility] Comment on above: Performed By: #### C BC, BMP #### [address] Automated basophil countOrde red By: Juan Cook on 10-11-2023 Basophils (Bld) [#/Vol] 0.0 10*3/uL Normal 0.0-0.2 [facility] Comment on above: Result Comment: PERF ORMED BY: [place] [address] PATHOLOGIST [employer]IST AASHISH FLETCHER M.D. Performed By: #### C BC, BMP #### [address] Automated blood monocyte cou ntOrdered By: Juan Cook on 10-11-2023 Monocytes (Bld) [#/Vol] 0.5 10*3/uL Normal 0.0-0.8 [facility] Comment on above: Performed By: #### C BC, BMP #### [address] Automated eosinophil %Ordere d By: Juan Cook on 10-11-2023 Eosinophils/100 WBC (Bld) 0.4 % Normal . [facility] Comment on above: Performed By: #### C BC, BMP #### [address] Automated eosinophil countOr dered By: Juan Cook on 10-11-2023 Eosinophils (Bld) [#/Vol] 0.0 10*3/uL Normal 0.0-0.45 [facility] Comment on above: Performed By: #### C BC, BMP #### [address] Automated monocyte %Ordered By: Juan Cook on 10-11-2023 Monocytes/100 WBC (Bld) 10.3 % Normal . [facility] Comment on above: Performed By: #### C BC, BMP #### [address] Automated neutrophil %Ordere d By: Juan Cook on 10-11-2023 Neutrophils/100 WBC (Bld) 54.1 % Normal . [facility] Comment on above: Performed By: #### C BC, BMP #### [address] Basic Metabolic Panelon GFR/1.73 sq M.predicted MDRD (S/P/Bld) [Vol rate/Area] mL/min/{1.73_m2} Normal [facility] Comment on above: Performed By: #### C BC, BMP #### [address] Calcium [Mass/volume] in Ser um or PlasmaOrdered By: Juan Cook on 10-11-2023 Calcium [Mass/Vol] 10.8 mg/dL High 8.6-10.3 [facility] Comment on above: Result Comment: PERF ORMED BY: [place] [address] PATHOLOGIST [employer]IST AASHISH FLETCHER M.D. Performed By: #### C BC, BMP #### [address] Performed By: #### C A #### [address] Carbon dioxide, total [Moles /volume] in Serum or PlasmaOrdered By: Juan Cook on 10-11-2023 CO2 [Moles/Vol] 26.3 mmol/L Normal 21.0-31.0 [facility] Comment on above: Performed By: #### C BC, BMP #### [address] Chloride [Moles/volume] in S katelin or PlasmaOrdered By: Juan Cook on 10-11-2023 Chloride [Moles/Vol] 108 mmol/L High 98-107 [facility] Comment on above: Performed By: #### C BC, BMP #### [address] Complete Blood Count Auto Di ffon 10-11-2023 Mean Corpuscular HGB Conc 33.4 g/dL Normal 32.5-35.6 [facility] Comment on above: Performed By: #### C BC, BMP #### [address] NRBC% 0.1 /100{WBC} Normal 0-0.5 [facility] Comment on above: Performed By: #### C BC, BMP #### [address] Creatinine [Mass/volume] in Serum or PlasmaOrdered By: Juan Cook on 10-11-2023 Creatinine [Mass/Vol] 0.91 mg/dL Normal 0.70-1.30 [facility] Comment on above: Performed By: #### C BC, BMP #### [address] Erythrocyte distribution wid th [Ratio] by Automated countOrdered By: Juan Cook on 10-11-2023 Erythrocyte distribution width (RBC) [Ratio] 14.2 % Normal 12.0-14.8 [facility] Comment on above: Performed By: #### C BC, BMP #### [place] [address] [place] Erythrocytes [#/volume] in B lood by Automated countOrdered By: Juan Cook on 10-11-2023 RBC (Bld) [#/Vol] 5.08 10*6/uL Normal 3.90-5.60 [facility] Comment on above: Performed By: #### C BC, BMP #### [address] Glucose [Mass/volume] in Ser um or PlasmaOrdered By: Juan Cook on 10-11-2023 Glucose [Mass/Vol] 84 mg/dL Normal 70-100 [facility] Comment on above: ADA recommended refe rence rangeRandom Glucose Reference Range is dependent on time and content of last meal. Glucose of more than 200 mg/dL in a nonstressed, ambulatory subject supports the diagnosis of Diabetes Mellitus. Result Comment: [place] Glucose Reference Range is dependent on time and content of last meal. Glucose of more than 200 mg/dL in a nonstressed, ambulatory subject supports the diagnosis of Diabetes Mellitus. ADA recommended reference range Performed By: #### C FABIÁN, BMP #### [address] Hematocrit [Volume Fraction] of Blood by Automated countOrdered By: Juan Cook on 10-11-2023 Hematocrit (Bld) [Volume fraction] 45.6 % Normal 38.8-50.0 [facility] Comment on above: Performed By: #### C FABIÁN, BMP #### [address] Hemoglobin [Mass/volume] in BloodOrdered By: Juan Cook on 10-11-2023 Hemoglobin (Bld) [Mass/Vol] 15.2 g/dL Normal 13.0-17.0 [facility] Comment on above: Performed By: #### C FABIÁN, BMP #### [address] Leukocytes [#/volume] correc denise for nucleated erythrocytes in Blood by Automated counOrdered By: Juan Cook on 10-11-2023 WBC corrected for nucl RBC Auto (Bld) [#/Vol] 4.8 10*3/uL 4.1-10.5 [facility] Leukocytes [#/volume] in Blo od by Automated countOrdered By: Juan Cook on 10-11-2023 WBC (Bld) [#/Vol] 4.8 10*3/uL Normal 4.1-10.5 [facility] Comment on above: Performed By: #### C BC, BMP #### [place] [address] [place] Lymphocytes [#/volume] in Bl ood by Automated countOrdered By: Juan Cook on 10-11-2023 Lymphocytes (Bld) [#/Vol] 1.7 10*3/uL Normal 1.00-4.8 [facility] Comment on above: Performed By: #### C FABIÁN, BMP #### [address] Lymphocytes/100 leukocytes i n Blood by Automated countOrdered By: Juan Cook on 10-11-2023 Lymphocytes/100 WBC (Bld) 34.8 % Normal . [facility] Comment on above: Performed By: #### C FABIÁN, BMP #### [address] MCH [Entitic mass] by Automa denise countOrdered By: Juan Cook on 10-11-2023 MCH (RBC) [Entitic mass] 29.9 pg Normal 27.5-35.2 [facility] Comment on above: Performed By: #### C FABIÁN, BMP #### [address] MCHC Auto (RBC) [Mass/Vol]Or dered By: Juan Cook on 10-11-2023 MCHC (RBC) [Mass/Vol] 33.4 g/dL 32.5-35.6 [facility] MCV [Entitic volume] by Auto mated countOrdered By: Juan Cook on 10-11-2023 MCV (RBC) [Entitic vol] 89.6 fL Normal 83.5-101 [facility] Comment on above: Performed By: #### C FABIÁN, BMP #### [address] Neutrophils [#/volume] in Bl ood by Automated countOrdered By: Juan Cook on 10-11-2023 Neutrophils (Bld) [#/Vol] 2.6 10*3/uL Normal 1.8-7.7 [facility] Comment on above: Performed By: #### C FABIÁN, BMP #### [address] No Panel InformationOrdered By: Juan Cook on 10-11-2023 Estimated GFR (CKD-EPI) > 60.0 mL/Min [facility] Creatinine Clearance (Chem N/A [facility] Nucleated erythrocytes [Pres ence] in Blood by Automated countOrdered By: Juan Cook on 10-11-2023 Nucleated RBC Auto Ql (Bld) 0.1 /100{WBC} 0-0.5 [facility] Parathyrin.intact [Mass/volu me] in Serum or PlasmaOrdered By: Juan Cook on 10-11-2023 Parathyrin.intact [Mass/Vol] 149.8 pg/mL [facility] Parathyroid Hormone Intacton 10-11-2023 Parathyroid Hormone Intact 149.8 pg/mL High [facility] Comment on above: Result Comment: PERF ORMED BY: [place] [address] PATHOLOGIST [employer]IST AASHISH FLETCHER M.D. Performed By: #### C A #### [address] Platelet mean volume [Entiti c volume] in Blood by Automated countOrdered By: Juan Cook on 10-11-2023 Platelet mean volume (Bld) [Entitic vol] 7.3 fL Normal 6.6-10.1 [facility] Comment on above: Performed By: #### C BC, BMP #### [address] Platelets [#/volume] in Bloo d by Automated countOrdered By: Juan Cook on 10-11-2023 Platelets (Bld) [#/Vol] 199 10*3/uL Normal 150-450 [facility] Comment on above: Performed By: #### C BC, BMP #### [place] [address] [place] Potassium [Moles/volume] in Serum or PlasmaOrdered By: Juan Cook on 10-11-2023 Potassium [Moles/Vol] 4.4 mmol/L Normal 3.5-5.1 [facility] Comment on above: Performed By: #### C BC, BMP #### [address] Serum or plasma anion gap de terminationOrdered By: Juan Cook on 10-11-2023 Anion gap [Moles/Vol] 8.1 mmol/L Normal 6.0-15.0 [facility] Comment on above: Performed By: #### C BC, BMP #### [address] Sodium [Moles/volume] in Ser um or PlasmaOrdered By: Juan Cook on 10-11-2023 Sodium [Moles/Vol] 138 mmol/L Normal 136-145 [facility] Comment on above: Performed By: #### C BC, BMP #### [address] Thyrotropin [Units/volume] i n Serum or PlasmaOrdered By: Juan Cook on 10-11-2023 TSH Qn 0.90 m[IU]/L Normal 0.45-5.33 [facility] Comment on above: Performed By: #### C A #### [address] Urea nitrogen [Mass/volume] in Serum or PlasmaOrdered By: Juan Cook on 10-11-2023 Urea nitrogen [Mass/Vol] 17 mg/dL Normal 7-25 [facility] Comment on above: Performed By: #### C BC, BMP #### [place] [id number] [facility] Vitamin D 25 Hydroxy Totalon 10-11-2023 Vitamin D 25 Hydroxy Total 28.8 ng/mL Low 30-100 [facility] Comment on above: Result Comment: FABIANO MIN D STATUS 25(OH)VITAMIN D RANGE (ng/mL) Deficient <20 Insufficient 20 to <30 Sufficient 30 to 100 Reference: Karri MF,Corwin NC, Adonis JOSHUA, et al. Evaluation,treatment, and prevention of vitamin D deficiency; an Endocrine Society clinical practice guideline. JCEM. 2010; 96(7):1911-30. PERFORMED BY: [place] [address] PATHOLOGIST [employer] SPECIALIST AASHISH FLETCHER M.D. Performed By: #### C A #### [place] [id number] [facility] Vitamin D+Metabolites [Mass/ volume] in Serum or PlasmaOrdered By: Juan Cook on 10-11-2023 Vitamin D+Metabolites [Mass/Vol] 28.8 ng/mL 30-100 [facility] Comment on above: VITAMIN D STATUS 25( OH)VITAMIN D RANGE (ng/mL) Deficient <20 Insufficient 20 to <30Sufficient 30 to 100Reference: Karri MF,Corwin SHELDON, Adonis JOSHUA, et al. Evaluation,treatment, and prevention of vitamin D deficiency; an Endocrine Society clinical practice guideline. JCEM. 2010; 96(7):1911-30. CT neck 4D parathyroidon CT neck 4D parathyroid [facility] [place] [address] [place] [address] CT Scan Report Signed Patient: Padmini Lloyd MR#: [id number] : 1950 Acct:[id number] Age/Sex: 73 / M ADM Date: 09/23/23 Loc: [place] Room: Type: [facility] Attending Dr: Juan Cook DO Copies to: [...] M.D.09/23/2023 3:24 PM Dictation Location: [place] [address] Transcribed By: [facility] 09/23/23 1524 Dictated By: Raquel Shaw MD 09/23/23 1506 Signed By: 09/23/23 1524 Normal [facility] ISTAT XRay CREon 09-23-2023 ISTAT GFR > 60.0 Normal [facility] Comment on above: Result Comment: PERF ORMED BY: [place] [address] PATHOLOGIST [employer] SPECIALIST AASHISH FLETCHER M.D. Performed By: #### C , [facility] #### [address] NM*parathyroid SPECT*on 09-05 NM*parathyroid SPECT* [facility] [place] [address] [place] [address] Nuclear Medicine Report Signed Patient: Padmini Lloyd MR#: [id number] : 1950 Acct:[id number] Age/Sex: 73 / M ADM Date: 09/23/23 Loc: [place] Room: Type: [facility] Attending Dr: Juan Cook DO Copies to: [...] Raquel Shaw M.D.09/23/2023 3:31 PM Dictation Location: [place] [address] Transcribed By: [facility] 09/23/23 1531 Dictated By: Raquel Shaw MD 09/23/23 1524 Signed By: 09/23/23 1531 Normal [facility] No Panel InformationOrdered By: Juan Cook on 09-23-2023 Bedside Estimated GFR (eGFR) > 60.0 [facility] Whole blood creatinine measu rementOrdered By: Juan Cook on 09-23-2023 Creatinine [Mass/Vol] 1.1 mg/dL Normal 0.6-1.3 [facility] Comment on above: ER/ESD physician is notified/shown all ISTAT results.Critical values may be confirmed by laboratory testing ifdeemed necessary by ER attending doctor. Result Comment: ER/E SD physician is notified/shown all ISTAT results. Critical values may be confirmed by laboratory testing if deemed necessary by ER attending doctor. Performed By: #### C BC, BMP #### [facility] [address] [place], [place] [id number] [facility] PET+CT Guidance for localiza tion of tumor of Skull base to mid-thigh-- W 18F-FDG Marisol 09-17-2023 IMPRESSION: HEAD/NECK: * No FDG avid neoplastic [...] any questions regarding this interpretation, please call [phone]. If you are unable to reach us at the number above, please feel free to contact [facility] at [phone]. DIVISION OF RADIOLOGY * * *Final Report* * * DATE [...] 1.9 * Background liver activity: SUVmax 3.2 Investment Representative (topogram) images: No additional findings. HEAD AND NECK: Head (imaged): No abnormal uptake. Specifically, there is no recurrent hypermetabolic left orbital soft tissue. Neck & Lymph Nodes: No abnormal uptake. Thyroid: No abnormal uptake. CHEST: Lungs & Airways: No abnormal uptake. Previously noted pleural-based right lower lobe opacity has decreased in size, with only mild residual linear opacity remaining in this region (4/151). Pleura & Pericardium: No abnormal uptake. Cardiovascular: No abnormal uptake. Atherosclerotic calcifications. Mediastinum & Lymph Nodes: No abnormal uptake. ABDOMEN AND PELVIS: Hepatobiliary: No abnormal uptake. Spleen: No abnormal uptake. No splenomegaly. Pancreas: No abnormal uptake. Adrenals: No abnormal uptake. Urinary Tract: No abnormal uptake. GI Tract & Peritoneum: No abnormal uptake. No dilated bowel. Colonic diverticulosis. Vasculature: No abnormal uptake. Atherosclerotic calcifications without an abdominal aortic aneurysm. Retroperitoneum & Lymph Nodes: There are new hypermetabolic left pelvic and bilateral inguinal nodes, left greater than right. For example, a 2.3 x 0.9 cm left obturator node measures SUV max 9.6 (4/277) and a 1.5 x 1.1 cm left inguinal node measures SUV max 5.8 (/302). Pelvis: No abnormal uptake. Redemonstrated high density markers or seeds within the prostate gland. 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 Soft tissues: No abnormal uptake. Bilateral fat-containing inguinal hernias. DIVISION OF RADIOLOGY Provider, Hemanth Mcduffie [facility] - 09/17/2023 * * *Final Report* * [...] 1.9 * Background liver activity: SUVmax 3.2 Investment Representative (topogram) images: No additional findings. HEAD AND NECK: Head (imaged): No abnormal uptake. Specifically, there is no recurrent hypermetabolic left orbital soft tissue. Neck & Lymph Nodes: No abnormal uptake. Thyroid: No abnormal uptake. CHEST: Lungs & Airways: No abnormal uptake. Previously noted pleural-based right lower lobe opacity has decreased in size, with only mild residual linear opacity remaining in this region (/151). Pleura & Pericardium: No abnormal uptake. Cardiovascular: No abnormal uptake. Atherosclerotic calcifications. Mediastinum & Lymph Nodes: No abnormal uptake. ABDOMEN AND PELVIS: Hepatobiliary: No abnormal uptake. Spleen: No abnormal uptake. No splenomegaly. Pancreas: No abnormal uptake. Adrenals: No abnormal uptake. Urinary Tract: No abnormal uptake. GI Tract & Peritoneum: No abnormal uptake. No dilated bowel. Colonic diverticulosis. Vasculature: No abnormal uptake. Atherosclerotic calcifications without an abdominal aortic aneurysm. Retroperitoneum & Lymph Nodes: There are new hypermetabolic left [...] No abnormal uptake. Bilateral fat-containing inguinal hernias. IMPRESSION IMPRESSION: HEAD/NECK: * No FDG avid neoplastic [...] any questions regarding this interpretation, please call [phone]. If you are unable to reach us at the number above, please feel free to contact [facility] at [phone]. [facility] PET+CT Guidance for localiza tion of tumor of Skull base to mid-thigh-- W 18F-FDG IVOrdered By: [facility] Provider on 09-17-2023 [facility] GLUCOSE, BLOOD (POC)on 09-16 Glucose [Mass/Vol] 91 mg/dL 74 - 99 mg/dL [facility] Comment on above: Location:[facility], [address] [place] [address] , [place], [place], [address] The Accu-Chek Inform II glucose meter has not been approved for testing on patients receiving intensive medical intervention or therapy and results from this point of care glucose test should not be used for patient management decisions in these cases. Inaccurate results may also occur from other interfering factors, such as N-acetylcysteine (blood concentrations of greater than 5mg/dL), galactose, extremes of hematocrit (<10 or >65), or high doses of ascorbic acid (vitamin C) greater than 3mg/dL. Consider alternate testing mechanisms (e.g. core lab, blood gas instrument) in the above situations. [facility] PET+CT Guidance for localiza tion of tumor of Skull base to mid-thigh-- W [id number] Marisol 09-16-2023 Radiology Study observation (narrative) [facility] Calcium.ionized [Moles/Vol]o n 09-05-2023 Calcium.ionized [Mass/Vol] 6.1 mg/dL High 4.7 - 5.5 mg/dL [facility] Laboratory - Chemistry and C hemistry - challengeon 09-05-2023 Parathyrin.intact [Mass/Vol] 100 pg/mL High 16 - 77 pg/mL [facility] Comment on above: Interpretive Guide Intact PTH Calcium ------- Normal Parathyroid Normal Normal Hypoparathyroidism Low or Low Normal Low Hyperparathyroidism Primary Normal or High High Secondary High Normal or Low Tertiary High High Non-Parathyroid Hypercalcemia Low or Low Normal High No Panel Informationon 09-05 Interpretation and review of laboratory results Abnormal [facility] Performing Organizat ion Information Site ID: QPT Name: [facility] Address: [address] [place] [address], [address] [place] [id number] Director: Georges Yin MD [facility] PT Coag (Bld) [Time]on 09-05 INR Coag (PPP) [Relative time] 1.8 {INR} High [facility] Comment on above: Reference Range 0.9- 1.1 Moderate-intensity Warfarin Therapy 2.0-3.0 Higher-intensity Warfarin Therapy 3.0-4.0 PT Coag (PPP) [Time] 18.0 s High [facility] Comment on above: For additional infor matrere, please refer to http://education.Slots.com/faq/ZCL613 (This link is being provided for informational/ educational purposes only.) Activated partial thrombopla stin time (aPTT) in platelet poor plasma by coagulation aOrdered By: CHRISTIAN COFFEY on 05-20-2023 aPTT Coag (PPP) [Time] 30.7 s 25.1-36.5 [facility] Comment on above: A hematocrit value g reater than 55% may lead to inaccurate results in coagulation testing. Patients having hematocrit values >55% require a special collection tube for coagulation studies. Please contact the laboratory at [phone] for redraw instructions. INR in Platelet poor plasma by Coagulation assayOrdered By: CHRISTIAN COFFEY on 05-20-2023 INR Coag (PPP) [Relative time] 1.0 {INR} [facility] Comment on above: INR Therapeutic Rang [...] with mechanical heart valves: 3 - 4.5 Prothrombin time (PT)Ordered By: CHRISTIAN COFFEY on 05-20-2023 PT Coag (PPP) [Time] 11.8 s 9.0-12.9 [facility] Comment on above: A hematocrit value g reater than 55% may lead to inaccurate results in coagulation testing. Patients having hematocrit values >55% require a special collection tube for coagulation studies. Please contact the laboratory at [phone] for redraw instructions. Activated partial thrombopla stin time (aPTT) in platelet poor plasma by coagulation aOrdered By: Domenico Gipson on 05-07-2023 aPTT Coag (PPP) [Time] 45.6 s 25.1-36.5 [facility] Comment on above: A hematocrit value g reater than 55% may lead to inaccurate results in coagulation testing. Patients having hematocrit values >55% require a special collection tube for coagulation studies. Please contact the laboratory at [phone] for redraw instructions. Basophils Auto (Bld) [#/Vol] Ordered By: Domenico Gipson on 05-07-2023 Basophils (Bld) [#/Vol] 0.0 10*3/uL 0.0-0.2 [facility] Basophils/100 WBC Auto (Bld) Ordered By: Domenico Gipson on 05-07-2023 Basophils/100 WBC (Bld) 0.5 % . [facility] Calcium [Mass/volume] in Ser um or PlasmaOrdered By: Domenico Gipson on 05-07-2023 Calcium [Mass/Vol] 11.2 mg/dL 8.6-10.3 [facility] Carbon dioxide, total [Moles /volume] in Serum or PlasmaOrdered By: Domenico Gipson on 05-07-2023 CO2 [Moles/Vol] 27.5 mmol/L 21.0-31.0 [facility] Chloride [Moles/volume] in S katelin or PlasmaOrdered By: Domenico Gipson on 05-07-2023 Chloride [Moles/Vol] 106 mmol/L 98-107 [facility] Creatinine [Mass/volume] in Serum or PlasmaOrdered By: Domenico Gipson on 05-07-2023 Creatinine [Mass/Vol] 1.02 mg/dL 0.70-1.30 [facility] Eosinophils Auto (Bld) [#/Vo l]Ordered By: Domenico Gipson on 05-07-2023 Eosinophils (Bld) [#/Vol] 0.0 10*3/uL 0.0-0.45 [facility] Eosinophils/100 WBC Auto (Bl d)Ordered By: Domenico Gipson on 05-07-2023 Eosinophils/100 WBC (Bld) 0.4 % . [facility] Erythrocyte distribution wid th Auto (RBC) [Ratio]Ordered By: Domenico Gipson on 05-07-2023 Erythrocyte distribution width (RBC) [Ratio] 14.8 % 12.0-14.8 [facility] Glucose [Mass/volume] in Ser um or PlasmaOrdered By: Domenico Gipson on 05-07-2023 Glucose [Mass/Vol] 92 mg/dL 70-100 [facility] Comment on above: ADA recommended refe rence rangeRandom Glucose Reference Range is dependent on time and content of last meal. Glucose of more than 200 mg/dL in a nonstressed, ambulatory subject supports the diagnosis of Diabetes Mellitus. Hematocrit Auto (Bld) [Volum e fraction]Ordered By: Domenico Gipson on 05-07-2023 Hematocrit (Bld) [Volume fraction] 47.8 % 38.8-50.0 [facility] Hemoglobin [Mass/volume] in BloodOrdered By: Domenico Gipson on 05-07-2023 Hemoglobin (Bld) [Mass/Vol] 16.2 g/dL 13.0-17.0 [facility] INR in Platelet poor plasma by Coagulation assayOrdered By: Domenico Gipson on 05-07-2023 INR Coag (PPP) [Relative time] 3.1 {INR} [facility] Comment on above: INR Therapeutic Rang [...] RBC Auto (Bld) [#/Vol] 6.4 10*3/uL 4.1-10.5 [facility] Lymphocytes Auto (Bld) [#/Vo l]Ordered By: Domenico Gipson on 05-07-2023 Lymphocytes (Bld) [#/Vol] 2.0 10*3/uL 1.00-4.8 [facility] Lymphocytes/100 WBC Auto (Bl d)Ordered By: Domenico Gipson on 05-07-2023 Lymphocytes/100 WBC (Bld) 32.1 % . [facility] MCH Auto (RBC) [Entitic mass ]Ordered By: Domenico Gipson on 05-07-2023 MCH (RBC) [Entitic mass] 30.0 pg 27.5-35.2 [facility] MCHC Auto (RBC) [Mass/Vol]Or dered By: Domenico Gipson on 05-07-2023 MCHC (RBC) [Mass/Vol] 33.9 g/dL 32.5-35.6 [facility] MCV Auto (RBC) [Entitic vol] Ordered By: Domenico Gipson on 05-07-2023 MCV (RBC) [Entitic vol] 88.4 fL 83.5-101 [facility] Monocytes Auto (Bld) [#/Vol] Ordered By: Domenico Gipson on 05-07-2023 Monocytes (Bld) [#/Vol] 0.8 10*3/uL 0.0-0.8 [facility] Monocytes/100 WBC Auto (Bld) Ordered By: Domenico Gipson on 05-07-2023 Monocytes/100 WBC (Bld) 12.9 % . [facility] Neutrophils Auto (Bld) [#/Vo l]Ordered By: Domenico Gipson on 05-07-2023 Neutrophils (Bld) [#/Vol] 3.4 10*3/uL 1.8-7.7 [facility] Neutrophils/100 WBC Auto (Bl d)Ordered By: Domenico Gipson on 05-07-2023 Neutrophils/100 WBC (Bld) 54.1 % . [facility] No Panel InformationOrdered By: Domenico Gipson on 05-07-2023 Estimated GFR (CKD-EPI) > 60.0 mL/Min [facility] Creatinine Clearance (Chem N/A [facility] Nucleated erythrocytes [Pres ence] in Blood by Automated countOrdered By: Domenico Gipson on 05-07-2023 Nucleated RBC Auto Ql (Bld) 0.1 /100{WBC} 0-0.5 [facility] Platelet mean volume Auto (B ld) [Entitic vol]Ordered By: Domenico Gipson on 05-07-2023 Platelet mean volume (Bld) [Entitic vol] 6.9 fL 6.6-10.1 [facility] Platelets Auto (Bld) [#/Vol] Ordered By: Domenico Gipson on 05-07-2023 Platelets (Bld) [#/Vol] 232 10*3/uL 150-450 [facility] Potassium [Moles/volume] in Serum or PlasmaOrdered By: Domenico Gipson on 05-07-2023 Potassium [Moles/Vol] 4.5 mmol/L 3.5-5.1 [facility] Prothrombin time (PT)Ordered By: Domenico Gipson on 05-07-2023 PT Coag (PPP) [Time] 36.3 s 9.0-12.9 [facility] Comment on above: A hematocrit value g reater than 55% may lead to inaccurate results in coagulation testing. Patients having hematocrit values >55% require a special collection tube for coagulation studies. Please contact the laboratory at [phone] for redraw instructions. RBC Auto (Bld) [#/Vol]Ordere d By: Domenico Gipson on 05-07-2023 RBC (Bld) [#/Vol] 5.41 10*6/uL 3.90-5.60 [facility] Serum or plasma anion gap de terminationOrdered By: Domenico Gipson on 05-07-2023 Anion gap [Moles/Vol] 10.0 mmol/L 6.0-15.0 [facility] Sodium [Moles/volume] in Ser um or PlasmaOrdered By: Domenico Gipson on 05-07-2023 Sodium [Moles/Vol] 139 mmol/L 136-145 [facility] Urea nitrogen [Mass/volume] in Serum or PlasmaOrdered By: Domenico Gipson on 05-07-2023 Urea nitrogen [Mass/Vol] 20 mg/dL 7-25 [facility] WBC Auto (Bld) [#/Vol]Ordere d By: Domenico Gipson on 05-07-2023 WBC (Bld) [#/Vol] 6.4 10*3/uL 4.1-10.5 [facility] CREATININEon 11-15-2022 Creatinine [Mass/Vol] 1.21 mg/dL Normal 0.70-1.30 [facility] Comment on above: Performed By: #### C DRE #### [facility] [address] [place], [place] [address] Dr. Papi Ramirez EGFR-AF SAO TOMEAN >60 Normal >=60 [facility] Comment on above: Performed By: #### C DRE #### [facility] [address] [place], [place] [address] Dr. Papi Ramirez EGFR-NON AF SAO TOMEAN 59 mL/min/1.73m2 Critically low >=60 [facility] Comment on above: Performed By: #### C DRE #### [facility] [address] [place], [place] [address] Dr. Papi Ramirez MRI ORBIT WO W [...] and lacrimal glands are normal in morphology. [place] lenses are well-aligned. Intraconal and the remainder [...] new intraorbital abnormality. Electronically authenticated by: HERIBERTO RIK Date: 2022-11-15 14:37 Normal [facility] URINALYSISOrdered By: Tessie vigil on 08-28-2022 Bacteria [...] [#/Area] 0-2 /HPF Normal 0-2/HPF [facility] UA Aut o SS Glucose Test strip (U) [Mass/Vol] Negative (08/28/22 2:12 PM) Normal Negative [facility] UA Auto SS Hemoglobin Ql (U) Trace *ABN* (08/28/22 2:12 PM) Invalid Interpretation Code Negative [facility] UA Auto SS Ketones (U) [Mass/Vol] Negative (08/28/22 2:12 PM) Normal Negative [facility] UA Auto SS Rafael Hernandez.plasma/Rafael Hernandez .RBC (Bld) [Mass ratio] 4-20 /HPF Normal [...] PM) Normal Negative [facility] UA Auto SS Specific gravity (U) [Rel density] 1.020 *NA* (08/28/22 2:12 PM) Invalid Interpretation Code 1.005 - 1.030 [facility] UA Auto SS UA Spec Desc Random Urine (08/28/22 2:12 PM) Normal [facility] UA Auto SS Urobilinogen Qn (U) [id number] {Alcides'U}/dL Normal 0.0 - 1.0 EU/dL [facility] UA Auto SS WBC Auto Ql (U) 1+ *ABN* (08/28/22 2:12 PM) Invalid Interpretation Code Negative [facility] UA Auto SS WBC LM.HPF (Urine sed) [#/Area] 0-5 /HPF Normal 0-5/HPF [facility] UA Auto SS CREATININEon 05-07-2022 Creatinine [Mass/Vol] 1.10 mg/dL Normal 0.70-1.30 [facility] Comment on above: Performed By: #### C VDTBH #### [facility] [address] [place] [address] [address] Papi Ramirez EGFR-AF SAO TOMEAN >60 Normal >=60 [facility] Comment on above: Performed By: #### C VDTBH #### [facility] [address] [address] [address] Papi Ramirez EGFR-NON AF SAO TOMEAN >60 Normal >=60 [facility] Comment on above: Performed By: #### C VDTBH #### [facility] [address] [place] [address] [address] Papi Ramirez MRI ORBIT WO W [...] CHRISTIAN RAMÍREZ Date: 2022-05-07 12:08 Normal [facility] XR FOREIGN BODY EYEon 2021 XR FOREIGN BODY EYE EXAMINATION: XR FORE IGN BODY EYE HISTORY: Foreign body in eye COMPARISON: No relevant comparison available. FINDINGS: ORBITS: Negative for a metallic foreign body. OTHER: Negative. IMPRESSION: No metallic foreign body in the orbits Electronically authenticated by: CHRISTIAN RAMÍREZ Date: 2022-05-07 08:47 Normal [facility] CALCULI, URINARYon 2 2,8 Dihydroxyadenine Normal [facility] Comment on above: Performed By: #### C ALCULI #### [facility] [address] [place] [address] Dr. Papi Ramirez Ammonium Acid Urate Normal [facility] Comment on above: Performed By: #### C ALCULI #### [facility] [address] [place] [address] Dr. Papi Ramirez Bilirubin Ql (U) Normal [facility] Comment on above: Performed By: #### C ALCULI #### [facility] [address] [address] [address] Papi Ramirez Ca Oxalate Dihydrate 70 % Normal [facility] Comment on above: Performed By: #### C ALCULI #### [facility] [address] [address] [address] Papi Ramirez CaHPO4 (Brushite) Normal [facility] Comment on above: Performed By: #### C ALCULI #### [facility] [address] [address] [address] Papi Ramirez Calcium Bilirubinate Normal [facility] Comment on above: Performed By: #### C ALCULI #### [facility] [address] [place] [address] Dr. Papi Ramirez Calcium Carbonate Normal [facility] Comment on above: Performed By: #### C ALCULI #### [facility] [address] [place] [address] Dr. Papi Ramirez Calcium Oxalate Monohydrate 20 % Normal [facility] Comment on above: Performed By: #### C ALCULI #### [facility] [address] [address] [address] Papi Ramirez Calcium Palmitate Normal [facility] Comment on above: Performed By: #### C ALCULI #### [facility] [address] [place] [address] Dr. Papi Ramirez Calcium Phosphate Normal [facility] Comment on above: Performed By: #### C ALCULI #### [facility] [address] [address] [address] Papi Ramirez Calcium Stearate [facility] Comment on above: Performed By: #### C ALCULI #### [facility] [address] [place] [address] Dr. Papi Ramirez Carbonate Apatite Normal [facility] Comment on above: Performed By: #### C ALCULI #### [facility] [address] [place] [address] Dr. Papi Ramirez Cellular Material Normal [facility] Comment on above: Performed By: #### C ALCULI #### [facility] [address] [place] [address] Dr. Papi Ramirez Cholesterol [facility] Comment on above: Performed By: #### C ALCULI #### [facility] [address] [place] [address] Dr. Papi Ramirez Color (U) Mcbride Normal [facility] Comment on above: Performed By: #### C ALCULI #### [facility] [address] [place] [address] Dr. Papi Ramirez Comment [facility] Comment on above: Performed By: #### C ALCULI #### [facility] [address] [place] [address] Dr. Papi Ramirez Comment Comment [facility] Comment on above: Result Comment: Calc ulus received in liquid. Wet calculi must be dried before analysis, which delays reporting of results. Leaving calculi in liquid (such as water, saline, blood, urine) may lead to changes in composition. Performed By: #### C ALCULI #### [facility] [address] [place] [address] Dr. Papi Ramirez Comment: Comment Normal [facility] Comment on above: Result Comment: Nidia richard questions regarding Calculi Analysis contact [facility] at: [phone]. Performed By: #### C ALCULI #### [facility] [address] [place] [address] Dr. Papi Ramirez Composition Comment Normal [facility] Comment on above: Result Comment: Perc entage (Represents the % composition) Performed By: #### C ALCULI #### [facility] [address] [place] [address] Dr. Papi Ramirez Cystine Normal [facility] Comment on above: Performed By: #### C ALCULI #### [facility] [address] [place] [address] Dr. Papi Ramirez Disclaimer: Comment Normal [facility] Comment on above: Result Comment: This test was developed and its performance characteristics determined by [facility]. It has not been cleared or approved by the Food and Drug Administration. Performed By: #### C ALCULI #### [facility] [address] [place] [address] Dr. Papi Ramirez Dried Blood Normal [facility] Comment on above: Performed By: #### C ALCULI #### [facility] [address] [place] [address] Dr. Papi Ramirez Drug or Metabolite Normal [facility] Comment on above: Performed By: #### C ALCULI #### [facility] [address] [place] [address] Dr. Papi Ramirez Hydroxyapatite 10 % Normal [facility] Comment on above: Performed By: #### C ALCULI #### [facility] [address] [place] [address] Dr. Papi Ramirez Mg NH4 PO4 (Struvite) Normal [facility] Comment on above: Performed By: #### C ALCULI #### [facility] [address] [place] [address] Dr. Papi Ramirez MgHPO4 (Newberyite) Normal [facility] Comment on above: Performed By: #### C ALCULI #### [facility] [address] [address] [address] Papi Ramirez Other component(s) Normal [facility] Comment on above: Performed By: #### C ALCULI #### [facility] [address] [address] [address] Papi Ramirez PDF . Normal [facility] Comment on above: Performed By: #### C ALCULI #### [facility] [address] [address] [address] Papi Ramirez Photo Comment [facility] Comment on above: Result Comment: Phot ograph will follow under a separate cover Performed By: #### C ALCULI #### [facility] [address] [address] [address] Papi Ramirez Please note: Comment [facility] Comment on above: Result Comment: Calc viviana report will follow via computer, mail or program schedule clerk delivery. Performed By: #### C ALCULI #### [facility] [address] [address] [address] Papi Ramirez Size 7x5 [facility] Comment on above: Result Comment: Mult iple pieces received. Dimensions of the largest piece reported. Performed By: #### C ALCULI #### [facility] [address] [address] [address] Papi Ramirez Sodium Acid Urate Normal [facility] Comment on above: Performed By: #### C ALCULI #### [facility] [address] [address] [address] Papi Ramirez Source Comment [facility] Comment on above: Result Comment: Urin natalie Bladder Performed By: #### C ALCULI #### [facility] [address] [address] [address] Papi Ramirez Triamterene [facility] Comment on above: Performed By: #### C ALCULI #### [facility] [address] [address] [address] Papi Ramirez Uric Acid [facility] Comment on above: Performed By: #### C ALCULI #### [facility] [address] [address] [address] Papi Ramirez Uric Acid Dihydrate Normal [facility] Comment on above: Performed By: #### C ALCULI #### [facility] [address] [place] [address] Dr. Papi Ramirez Weight 215.0 mg [facility] Comment on above: Performed By: #### C ALCULI #### [facility] [address] [place] [address] Dr. Papi Ramirez Xanthine [facility] Comment on above: Performed By: #### C ALCULI #### [facility] [address] [place] [address] Dr. Papi Ramirez PROTIMEon 03-14-2022 INR Coag (PPP) [Relative time] 1.02 {INR} [facility] Comment on above: Performed By: #### P T, PTT #### [facility] [address] [place] [address] Dr. Papi Ramirez INR GUIDELINES SEE BELOW Boyd [facility] Comment on above: Result Comment: ELODIA RED INR: 2.0 - 3.0 CONDITIONS NOT LISTED BELOW 2.5 - 3.5 FOR PROSTHETIC HEART VALVE REPLACEMENT 2.5 - 3.5 RECURRENT THROMBOSIS Performed By: #### P T, PTT #### [facility] [address] [place] [address] Dr. Papi Ramirez PT Coag (PPP) [Time] 11.0 s Normal 9.0-11.6 [facility] Comment on above: Performed By: #### P T, PTT #### [facility] [address] [place] [address] Dr. Papi Ramirez PTTon 03-14-2022 aPTT Coag (Bld) [Time] 28.8 s Normal 22.3-36.2 [facility] Comment on above: Performed By: #### P T, PTT #### [facility] [address] [place] [address] Dr. Papi Ramirez [facility]on SARS-CoV-2 (COVID-19) RNA BON+probe Ql (Unsp spec) Not detected Normal NOT DETECTED [facility] Comment on above: Result Comment: This test is not yet approved or cleared by the [place] FDA. When there are no FDA-approved or cleared tests available, and other criteria are met, FDA can make tests available under an emergency access mechanism called an Emergency Use Authorization (EUA). The EUA for this test is supported by the Second Time Worker of Health and Human Service's (HHS's) declaration [...] consistent with SARS-CoV-2. Performed By: #### C VDTB #### [facility] [address] [place] [address] Dr. Papi Ramirez CBC AUTO DIFFon 03-02-2022 BASO # 0.0 103/ul Normal 0.0-0.1 [facility] Comment on above: Performed By: #### C BC #### [facility] [address] [place] [address] Dr. Papi Ramirez Basophils/100 WBC (Bld) 0.3 % Normal 0.2-2.0 [facility] Comment on above: Performed By: #### C BC #### [facility] [address] [place] [address] Dr. Papi Ramirez EO # 0.0 103/ul Normal 0.0-0.7 [facility] Comment on above: Performed By: #### C BC #### [facility] [address] [place] [address] Dr. Papi Ramirez Eosinophils/100 WBC (Bld) 0.5 % Critically low 0.9-7.0 [facility] Comment on above: Performed By: #### C BC #### [facility] [address] [place] [address] Dr. Papi Ramirez Erythrocyte distribution width (RBC) [Ratio] 13.1 % Normal 11.0-15.0 [facility] Comment on above: Performed By: #### C BC #### [facility] [address] [place] [address] Dr. Papi Ramirez Hematocrit (Bld) [Volume fraction] 49.7 % Normal 42.0-54.0 [facility] Comment on above: Performed By: #### C BC #### [facility] [address] [place] [address] Dr. Papi Ramirez Hemoglobin (Bld) [Mass/Vol] 16.8 g/dL Normal 14.0-18.0 [facility] Comment on above: Performed By: #### C BC #### [facility] [address] [place] [address] Dr. Papi Ramirez IG # 0.02 10e3/ul Normal 0.00-0.03 [facility] Comment on above: Performed By: #### C BC #### [facility] [address] [place] [address] Dr. Papi Ramirez IG % 0.3 % Normal 0.0-0.5 [facility] Comment on above: Performed By: #### C BC #### [facility] [address] [place] [address] Dr. Papi Ramirez LYMPH # 1.8 103/ul Normal 1.2-3.8 [facility] Comment on above: Performed By: #### C BC #### [facility] [address] [place] [address] Dr. Papi Ramirez Lymphocytes/100 WBC (Bld) 30.3 % Normal 20.5-60.0 [facility] [facility] Comment on above: Performed By: #### C BC #### [facility] [address] [place] [address] Dr. Papi Ramirez MANUAL DIFF REQ NO Normal [facility] Comment on above: Performed By: #### C BC #### [facility] [address] [place] [address] Dr. Papi Ramirez MCH (RBC) [Entitic mass] 29.9 pg Normal 25.9-34.0 [facility] Comment on above: Performed By: #### C BC #### [facility] [address] [place] [address] Dr. Papi Ramirez MCHC (RBC) [Mass/Vol] 33.8 g/dL Normal 29.9-35.2 [facility] Comment on above: Performed By: #### C BC #### [facility] [address] [place] [address] Dr. Papi Ramirez MCV (RBC) [Entitic vol] 88.6 fL Normal 80.0-94.0 [facility] Comment on above: Performed By: #### C BC #### [facility] [address] [place] [address] Dr. Papi Ramirez MONO # 0.7 103/ul Normal 0.3-0.8 [facility] Comment on above: Performed By: #### C BC #### [facility] [address] [place] [address] Dr. Papi Ramirez Monocytes/100 WBC (Bld) 10.8 % Normal 1.7-12.0 [facility] Comment on above: Performed By: #### C BC #### [facility] [address] [place] [address] Dr. Papi Ramirez NEUT # 3.5 103/ul Normal 1.4-6.5 [facility] Comment on above: Performed By: #### C BC #### [facility] [address] [place] [address] Dr. Papi Ramirez Neutrophils/100 WBC (Bld) 57.8 % Normal 43.0-75.0 [facility] Comment on above: Performed By: #### C BC #### [facility] [address] [place] [address] Dr. Papi Ramirez Platelet mean volume (Bld) [Entitic vol] 8.7 fL Critically low 9.5-13.5 [facility] Comment on above: Performed By: #### C BC #### [facility] [address] [place] [address] Dr. Papi Ramirez PLT 200 103/ul Normal 150-450 [facility] Comment on above: Performed By: #### C BC #### [facility] [address] [place] [address] Dr. Papi Ramirez RBC 5.61 106/ul Normal 4.70-6.10 [facility] Comment on above: Performed By: #### C BC #### [facility] [address] [address] [address] Papi Ramirez WBC 6.0 103/ul Normal 4.0-11.0 [facility] Comment on above: Performed By: #### C BC #### [facility] [address] [place] [address] Dr. Papi Ramirez PROF CHEM 8 (BAS METB)on Anion gap [Moles/Vol] 11.3 mmol/L Normal [facility] Comment on above: Performed By: #### B MP #### [facility] [address] [place] [address] Dr. Papi Ramirez Calcium [Mass/Vol] 10.6 mg/dL Critically high 8.5-10.1 [facility] Comment on above: Performed By: #### B MP #### [facility] [address] [place] [address] Dr. Papi Ramirez Chloride [Moles/Vol] 109 mmol/L Critically high 98-107 [facility] Comment on above: Performed By: #### B MP #### [facility] [address] [place] [address] Dr. Papi Ramirez CO2 [Moles/Vol] 27.2 mmol/L Normal 21.0-32.0 [facility] Comment on above: Performed By: #### B MP #### [facility] [address] [place] [address] Dr. Papi Ramirez Creatinine [Mass/Vol] 1.12 mg/dL Normal 0.70-1.30 [facility] Comment on above: Performed By: #### B MP #### [facility] [address] [place] [address] Dr. Papi Ramirez EGFR-AF SAO TOMEAN >60 Normal >=60 [facility] Comment on above: Performed By: #### B MP #### [facility] [address] [address] [address] Papi Ramirez EGFR-NON AF SAO TOMEAN >60 Normal >=60 [facility] Comment on above: Performed By: #### B MP #### [facility] [address] [address] [address] Papi Ramirez Glucose [Mass/Vol] 94 mg/dL Normal 74-106 [facility] Comment on above: Performed By: #### B MP #### [facility] [address] [address] [address] Papi Ramirez Potassium [Moles/Vol] 4.5 mmol/L Normal 3.5-5.1 [facility] Comment on above: Performed By: #### B MP #### [facility] [address] [address] [address] Papi Ramirez Sodium [Moles/Vol] 143 mmol/L Normal 136-145 [facility] Comment on above: Performed By: #### B MP #### [facility] [address] [address] [address] Papi Ramirez Urea nitrogen [Mass/Vol] 23.0 mg/dL Critically high 7.0-18.0 [facility] Comment on above: Performed By: #### B MP #### [facility] [address] [address] [address] Papi Ramirez Urea nitrogen/Creatinine [Mass ratio] 20.5 mg/mg Normal [facility] Comment on above: Performed By: #### B MP #### [facility] [address] [address] [address] Papi Ramirez PROTIMEon 03-02-2022 INR Coag (PPP) [Relative time] 3.21 {INR} Normal [facility] Comment on above: Performed By: #### C VDTB #### [facility] [address] [address] [address] Papi Ramirez INR GUIDELINES SEE BELOW Normal [facility] Comment on above: Result Comment: [place] RED INR: 2.0 - 3.0 CONDITIONS NOT LISTED BELOW 2.5 - 3.5 FOR PROSTHETIC HEART VALVE REPLACEMENT 2.5 - 3.5 RECURRENT THROMBOSIS Performed By: #### C VDTBH #### [facility] [address] [place] [address] Dr. Papi Ramirez PT Coag (PPP) [Time] 32.1 s Critically high 9.0-11.6 [facility] Comment on above: Performed By: #### C VDTBH #### [facility] [address] [place] [address] Dr. Papi Ramirez PTTon 03-02-2022 aPTT Coag (Bld) [Time] 46.5 s Critically high 22.3-36. 2 [facility] Comment on above: Performed By: #### C VDTBH #### [facility] [address] [place] [address] Dr. Papi Ramirez Q - PROTHROMBIN TIME WITH IN Juan Daniel 12-18-2021 INR Coag (PPP) [Relative time] 2.4 {INR} High [facility] Comment on above: Order Comment: [facility] performed at: pushd, [facility], [address] [place] [address], [address] [place] [address], [phone], Plant Ecologist: Georges Yin MD [facility] Date/Time: [facility] Results Received Date/Time: [id number] [facility] Reported Date/Time: Result Comment: Refe rence Range 0.9-1.1 Moderate-intensity Warfarin Therapy 2.0-3.0 Higher-intensity Warfarin Therapy 3.0-4.0 Performed By: #### 2 6F #### [facility] [address] [place] [address] PT Coag (PPP) [Time] 22.4 s High 9.0-11.5 [facility] Comment on above: Order Comment: [facility] performed at: pushd, [facility], [address] , [address] [place] [address], [phone], Plant Ecologist: Georges Yin MD [facility] Date/Time: [facility] Results Received Date/Time: [id number] [facility] Reported Date/Time: Result Comment: For additional information, please refer to [email or web address]/faq/SMT231 (This link is being provided for informational/ educational purposes only.) Performed By: #### 2 6F #### [facility] [address] [place] [address] Q - PROTHROMBIN TIME WITH IN Juan Daniel 11-30-2021 INR Coag (PPP) [Relative time] 1.3 {INR} High [facility] Special[facility] Comment on above: Order Comment: [facility] performed at: pushd, [facility], [address] [place] [address], [address] [place] [address], [phone], Plant Ecologist: Georges Yin MD [facility] Date/Time: [facility] Results Received Date/Time: [facility] Reported Date/Time: Result Comment: Refe rence Range 0.9-1.1 Moderate-intensity Warfarin Therapy 2.0-3.0 Higher-intensity Warfarin Therapy 3.0-4.0 Performed By: #### 2 6F #### [facility] [address] [place] [address] PT Coag (PPP) [Time] 12.8 s High 9.0-11.5 [facility] Comment on above: Order Comment: [facility] performed at: pushd, [facility], [address] [place] [address], [address] [place] [address], [phone], Plant Ecologist: Georges Yin MD [facility] Date/Time: [facility] Results Received Date/Time: [facility] Reported Date/Time: Result Comment: For additional information, please refer to [email or web address]/faq/RGA001 (This link is being provided for informational/ educational purposes only.) Performed By: #### 2 6F #### [facility] [address] [place] [address] Q - PROTHROMBIN TIME WITH IN Juan Daniel 11-09-2021 INR Coag (PPP) [Relative time] 1.7 {INR} High [facility] Specialist Comment on above: Order Comment: [facility] performed at: pushd, [facility], [address] [place] [address], [address] [place] [address], [phone], Plant Ecologist: Georges Yin MD [facility] Date/Time: [facility] Results Received Date/Time: [facility] Reported Date/Time: Result Comment: Refe rence Range 0.9-1.1 Moderate-intensity Warfarin Therapy 2.0-3.0 Higher-intensity Warfarin Therapy 3.0-4.0 Performed By: #### 2 6F #### [facility] [address] [place] [address] PT Coag (PPP) [Time] 16.5 s High 9.0-11.5 [facility] Comment on above: Order Comment: [facility] performed at: pushd, [facility], [address] [place] [address], [address] [place] [address], [phone], Plant Ecologist: Georges Yin MD [facility] Date/Time: [facility] Results Received Date/Time: [facility] Reported Date/Time: Result Comment: For additional information, please refer to http://education.Slots.com/faq/COL042 (This link is being provided for informational/ educational purposes only.) Performed By: #### 2 6F #### [facility] [address] [place] [address] Q - PROTHROMBIN TIME WITH IN Juan Daniel 10-26-2021 INR Coag (PPP) [Relative time] 1.5 {INR} High [facility] Special[facility] Comment on above: Order Comment: [facility] performed at: pushd, [facility], [address] [place] [address], [address] [place] [address], [phone], Plant Ecologist: Georges Yin MD [facility] Date/Time: [facility] Results Received Date/Time: [facility] Reported Date/Time: Result Comment: Refe rence Range 0.9-1.1 Moderate-intensity Warfarin Therapy 2.0-3.0 Higher-intensity Warfarin Therapy 3.0-4.0 Performed By: #### 2 6F #### [facility] [address] [place] [address] PT Coag (PPP) [Time] 14.8 s High 9.0-11.5 [facility] Comment on above: Order Comment: [facility] performed at: pushd, [facility], [address] [facility], [address] [place] [address], [phone], Plant Ecologist: Georges Yin MD [facility] Date/Time: [facility] Results Received Date/Time: [facility] Reported Date/Time: Result Comment: For additional information, please refer to http://education.Slots.com/faq/WXF725 (This link is being provided for informational/ educational purposes only.) Performed By: #### 2 6F #### [facility] [address] [place] [address] Q - PROTHROMBIN TIME WITH IN Juan Daniel 09-22-2021 INR Coag (PPP) [Relative time] 2.1 {INR} High [facility] Comment on above: Order Comment: [facility] performed at: pushd, [facility], [address] [facility], [address] [place] [address], [phone], Plant Ecologist: Georges Yin MD [facility] Date/Time: [facility] Results Received Date/Time: [id number] [facility] Reported Date/Time: [id number] Result Comment: Refe rence Range 0.9-1.1 Moderate-intensity Warfarin Therapy 2.0-3.0 Higher-intensity Warfarin Therapy 3.0-4.0 Performed By: #### 2 6F #### [facility] [address] [place] [address] PT Coag (PPP) [Time] 20.2 s High 9.0-11.5 [facility] Comment on above: Order Comment: [facility] performed at: [facility], [facility], [address] [facility], [address] [place] [address], [address] [place] [address], Plant Ecologist: Georges Yin MD [facility] Date/Time: [facility] Results Received Date/Time: [facility] Reported Date/Time: Result Comment: For additional information, please refer to http://[email or web address]/faq/BFI756 (This link is being provided for informational/ educational purposes only.) Performed By: #### 2 6F #### [facility] [address] [place] [address] Q - PROTHROMBIN TIME WITH IN Juan Daniel 09-14-2021 INR Coag (PPP) [Relative time] 4.3 {INR} High [facility] Water Quality Technician Comment on above: Order Comment: [facility] performed at: pushd, [facility], [address] [facility], [address] [place] [address], [address] [place] [address], Plant Ecologist: Georges Yin MD [facility] Date/Time: [facility] Results Received Date/Time: [facility] Reported Date/Time: Result Comment: Refe rence Range 0.9-1.1 Moderate-intensity Warfarin Therapy 2.0-3.0 Higher-intensity Warfarin Therapy 3.0-4.0 Performed By: #### 2 6F #### [facility] [address] [place] [address] PT Coag (PPP) [Time] 39.0 s High 9.0-11.5 [facility] Comment on above: Order Comment: [facility] performed at: [employer], [facility], [address] [facility], [address] [place] [address], [address] [place] [address], Plant Ecologist: Georges Yin MD [facility] Date/Time: [facility] Results Received Date/Time: [facility] Reported Date/Time: Result Comment: For additional information, please refer to [email or web address]/faq/QVQ751 (This link is being provided for informational/ educational purposes only.) Performed By: #### 2 6F #### [facility] [address] [place] [address] Q - PROTHROMBIN TIME WITH IN Juan Daniel 07-20-2021 INR Coag (PPP) [Relative time] 2.1 {INR} High [facility] Specialist Comment on above: Order Comment: [facility] performed at: pushd, [facility], [address] [place] [address], [address] [place] [address], [phone], Plant Ecologist: Georges Yin MD [facility] Date/Time: [facility] Results Received Date/Time: [facility] Reported Date/Time: Result Comment: Refe rence Range 0.9-1.1 Moderate-intensity Warfarin Therapy 2.0-3.0 Higher-intensity Warfarin Therapy 3.0-4.0 Performed By: #### 2 6F #### [facility] [address] [place] [address] PT Coag (PPP) [Time] 21.7 s High 9.0-11.5 [facility] Comment on above: Order Comment: [facility] performed at: [facility], [address] [facility], [address] [place] [address], [phone], Plant Ecologist: Georges Yin MD [facility] Date/Time: [facility] Results Received Date/Time: [facility] Reported Date/Time: Result Comment: For additional information, please refer to http://education.Slots.com/faq/AQI824 (This link is being provided for informational/ educational purposes only.) Performed By: #### 2 6F #### [facility] [address] [place] [address] CT Chest W contrast Marisol IMPRESSION: 1. Indeterminate linear filling defects in the left lower lobe pulmonary artery may represent residual/chronic pulmonary embolus, pulmonary web or artifact. Previously noted right pulmonary emboli are not visualized but this study is not optimized further evaluation of pulmonary embolism. Consider further evaluation via dedicated CT PE study. 2. No evidence of intrathoracic lymphadenopathy. 3. Multiple patchy opacities and nodular opacities in bilateral lung chang, stable since 12/08/2020. Consider interval follow-up. Transcribe Date/Time: Mar 15 2021 8:02P Dictated by: RICHARD CHAMBERLAIN MD This examination was interpreted and the report reviewed and electronically signed by: RICHARD CHAMBERLAIN MD on Mar 15 2021 9:02PM EST Thank you for allowing us to participate in the care of your patient. Should there be any questions regarding this interpretation, please call [phone]. If you are unable to reach us at the number above, please feel free to contact [facility] at [phone]. DIVISION OF RADIOLOGY * * *Final Report* * * DATE OF EXAM: Mar 15 2021 9:31AM [facility] [address] - CT CHEST W IVCON / PROCEDURE REASON: Lung nodules * * * * Physician Interpretation * * * * RESULT: EXAMINATION: CHEST CT WITH CONTRAST CLINICAL HISTORY: Lung nodule(s) follicular lymphoma, evaluate residual pulmonary embolism, on Coumadin Technique: Spiral CT acquisition of the chest from the thoracic inlet to the upper abdomen following IV contrast. MQ: CTCW_6 Contrast: 50 mL Omnipaque [address] Radiation dose: Integrated Dose-length product (DLP) for this visit = 386 mGy*cm CT Dose Reduction Employed: Automated exposure control (AEC) Comparison: PET/CT scan dated 12/08/2020; chest CT scan dated 04/03/2020 RESULT: Limitations: None. Lines, tubes, and devices: None. Lung parenchyma and airways: 2.9 x 1.4 cm right lower lobe pleural-based patchy opacity (3:137), previously 2.8 x 1.8 cm, stable most likely related to a combination of scarring and atelectasis. Streaky scarring/discoid atelectasis in the right middle lobe and the lingula, stable. Previously noted pulmonary emboli in the right lung are no longer visualized but this examination is not optimized for the evaluation of pulmonary embolism. Indeterminate linear filling defects in the left lower lobe pulmonary artery (2:104) may represent residual/chronic pulmonary embolus, pulmonary web and artifact. Additional subcentimeter nodular opacities measuring up to 5 mm, stable. For example: Right lower lobe (image 3:133) Right middle lobe (3: 110) Left lower lobe (3:56, 83, 89) No new airspace opacities. The central airways are patent. Pleural space: No pleural effusion. No pleural thickening. Lower neck, lymph nodes, and mediastinum: The imaged thyroid gland is normal. No lymphadenopathy in the supraclavicular, axillary, mediastinal, or hilar regions. Heart, pericardium, and thoracic vessels: The thoracic aorta is ectatic measuring 4.2 cm in diameter. The cardiac chambers are normal in size. Atherosclerotic coronary artery calcifications are noted. No pericardial effusion or thickening. Bones and soft tissues: No new osseous abnormalities. Upper abdomen: Mild nodular thickening of left adrenal gland, stable. Right adrenal gland is unremarkable. Investment Representative (topogram) images: No additional findings. DIVISION OF RADIOLOGY Provider, [facility] - 03/15/2021 * * *Final Report* * * DATE OF EXAM: Mar 15 2021 9:31AM [facility] [address] - CT CHEST W IVCON / PROCEDURE REASON: Lung nodules * * * * Physician Interpretation * * * * RESULT: EXAMINATION: CHEST CT WITH CONTRAST CLINICAL HISTORY: Lung nodule(s) follicular lymphoma, evaluate residual pulmonary embolism, on Coumadin Technique: Spiral CT acquisition of the chest from the thoracic inlet to the upper abdomen following IV contrast. MQ: CTCW_6 Contrast: 50 mL Omnipaque [address] Radiation dose: Integrated Dose-length product (DLP) for this visit = 386 mGy*cm CT Dose Reduction Employed: Automated exposure control (AEC) Comparison: PET/CT scan dated 12/08/2020; chest CT scan dated 04/03/2020 RESULT: Limitations: None. Lines, tubes, and devices: None. Lung parenchyma and airways: 2.9 x 1.4 cm right lower lobe pleural-based patchy opacity (3:137), previously 2.8 x 1.8 cm, stable most likely related to a combination of scarring and atelectasis. Streaky scarring/discoid atelectasis in the right middle lobe and the lingula, stable. Previously noted pulmonary emboli in the right lung are no longer visualized but this examination is not optimized for the evaluation of pulmonary embolism. Indeterminate linear filling defects in the left lower lobe pulmonary artery (2:104) may represent residual/chronic pulmonary embolus, pulmonary web and artifact. Additional subcentimeter nodular opacities measuring up to 5 mm, stable. For example: Right lower lobe (image 3:133) Right middle lobe (3: 110) Left lower lobe (3:56, 83, 89) No new airspace opacities. The central airways are patent. Pleural space: No pleural effusion. No pleural thickening. Lower neck, lymph nodes, and mediastinum: The imaged thyroid gland is normal. No lymphadenopathy in the supraclavicular, axillary, mediastinal, or hilar regions. Heart, pericardium, and thoracic vessels: The thoracic aorta is ectatic measuring 4.2 cm in diameter. The cardiac chambers are normal in size. Atherosclerotic coronary artery calcifications are noted. No pericardial effusion or thickening. Bones and soft tissues: No new osseous abnormalities. Upper abdomen: Mild nodular thickening of left adrenal gland, stable. Right adrenal gland is unremarkable. Investment Representative (topogram) images: No additional findings. IMPRESSION IMPRESSION: 1. Indeterminate linear filling defects in the left lower lobe pulmonary artery may represent residual/chronic pulmonary embolus, pulmonary web or artifact. Previously noted right pulmonary emboli are not visualized but this study is not optimized further evaluation of pulmonary embolism. Consider further evaluation via dedicated CT PE study. 2. No evidence of intrathoracic lymphadenopathy. 3. Multiple patchy opacities and nodular opacities in bilateral lung chang, stable since 12/08/2020. Consider interval follow-up. Transcribe Date/Time: Mar 15 2021 8:02P Dictated by: RICHARD CHAMBERLAIN MD This examination was interpreted and the report reviewed and electronically signed by: RICHARD CHAMBERLAIN MD on Mar 15 2021 9:02PM EST Thank you for allowing us to participate in the care of your patient. Should there be any questions regarding this interpretation, please call [phone]. If you are unable to reach us at the number above, please feel free to contact [facility] at [phone]. [facility] Radiology Study observation (narrative) [facility] CT Chest W contrast IVOrdere d By: [facility] Provider on 03-15-2021 [facility] Iron and TIBCon 07-16-2019 Iron [Mass/Vol] 85 ug/dL Normal 41-186 [facility] Comment on above: Performed By: #### I JUAN DANIEL #### [facility] Routine Lab [address] [place], [place] [id number] TIBC 351 ug/dL Normal 232-386 [facility] Comment on above: Performed By: #### I JUAN DANIEL #### [facility] Routine Lab [address] [place], [place] [id number] Transferrin Saturatn 24 % Normal 15-57 [facility] Comment on above: Performed By: #### I JUAN DANIEL #### [facility] Routine Lab [address] [place], [place] [id number] Vital Signs Date Time Vital Sign Value Performing Clinician Facility 01-05-2025 11:08-0400 Body height 182.9 cm Jarred Arias MD Work Phone: [facility] 01-05-2025 11:08-0400 Body mass index (BMI) [Ratio] 33.16 kg/m2 Jarred Arias MD Work Phone: [facility] 01-05-2025 11:08-0400 Body weight 110.9 kg Jarred Arias MD Work Phone: [facility] 01-05-2025 11:08-0400 Diastolic blood pressure 80 mm[Hg] Jarred Arias MD Work Phone: [facility] 01-05-2025 11:08-0400 Heart rate 65 /min Jarred Arias MD Work Phone: [facility] 01-05-2025 11:08-0400 SaO2% (BldA) [Mass fraction] 99 % Jarred Arias MD Work Phone: [facility] 01-05-2025 11:08-0400 Systolic blood pressure 130 mm[Hg] Jarred Arias MD Work Phone: [facility] 11-25-2024 09:34-0400 Body height 182.9 cm Christian Bustos DO Work Phone: [facility] 11-25-2024 09:34-0400 Body mass index (BMI) [Ratio] 32.82 kg/m2 Christian Pocos DO Work Phone: [facility] 11-25-2024 09:34-0400 Body weight 109.77 kg Christian Pocos DO Work Phone: [facility] 07-20-2024 14:57-0500 Diastolic blood pressure 82 mm[Hg] Jarred Arias MD Work Phone: [facility] 07-20-2024 14:57-0500 Systolic blood pressure 134 mm[Hg] Jarred Arias MD Work Phone: [facility] 06-30-2024 14:02-0500 Blood Pressure Location Domenico [facility] 06-30-2024 14:02-0500 Body temperature 98.6 [degF] Domenico [facility] 06-30-2024 14:02-0500 Diastolic blood pressure 82 mm[Hg] Domenico [facility] 06-30-2024 14:02-0500 Heart rate 75 /min Domenico [facility] 06-30-2024 14:02-0500 Respiratory rate 16 /min Domenico [facility] 06-30-2024 14:02-0500 Systolic blood pressure 135 mm[Hg] Domenico [facility] 05-27-2024 09:47-0400 Body height 182.9 cm Christian Vega DO Work Phone: [facility] 05-27-2024 09:47-0400 Body mass index (BMI) [Ratio] 32.55 kg/m2 Christian Burchos DO Work Phone: [facility] 05-27-2024 09:47-0400 Body weight 108.86 kg Christian Bustos DO Work Phone: [facility] 05-12-2024 10:26-0400 Body height 182.9 cm Juan Cook DO Work Phone: [facility] 05-12-2024 10:26-0400 Body mass index (BMI) [Ratio] 32.55 kg/m2 Juan Cook DO Work Phone: [facility] 05-12-2024 10:26-0400 Body weight 108.86 kg Juan Cook DO Work Phone: [facility] 05-05-2024 12:50-0400 Body height 182.9 cm Pacc 1 Work Phone: [facility] 05-05-2024 12:50-0400 Body mass index (BMI) [Ratio] 32.59 kg/m2 Pacc 1 Work Phone: [facility] 05-05-2024 12:50-0400 Body temperature 98.4 [degF] Pacc 1 Work Phone: [facility] 05-05-2024 12:50-0400 Body weight 109 kg Pacc 1 Work Phone: [facility] 05-05-2024 12:50-0400 Diastolic blood pressure 83 mm[Hg] Pacc 1 Work Phone: [facility] 05-05-2024 12:50-0400 Heart rate 72 /min Pacc 1 Work Phone: [facility] 05-05-2024 12:50-0400 Respiratory rate 16 /min Pacc 1 Work Phone: [facility] 05-05-2024 12:50-0400 SaO2% (BldA) [Mass fraction] 96 % Pacc 1 Work Phone: [facility] 05-05-2024 12:50-0400 Systolic blood pressure 141 mm[Hg] Pacc 1 Work Phone: [facility] 03-03-2024 13:22-0400 Blood Pressure Location Domenico GIPSON [facility] 03-03-2024 13:22-0400 Diastolic blood pressure 90 mm[Hg] Domenico GIPSON [facility] 03-03-2024 13:22-0400 Heart rate 80 /min Domenico GIPSON [facility] 03-03-2024 13:22-0400 Respiratory rate 16 /min Domenico GIPSON [facility] 03-03-2024 13:22-0400 Systolic blood pressure 152 mm[Hg] Domenico GIPSON [facility] 02-13-2024 10:36-0400 Diastolic blood pressure 87 mm[Hg] MD Jarred Arias Work Phone: [facility] 02-13-2024 10:36-0400 Heart rate 70 /min MD Jarred Arias Work Phone: [facility] 02-13-2024 10:36-0400 Respiratory rate 14 /min MD Jarred Arias Work Phone: [facility] 02-13-2024 10:36-0400 SaO2% (BldA) [Mass fraction] 92 % MD Jarred Arias Work Phone: [facility] 02-13-2024 10:36-0400 Systolic blood pressure 140 mm[Hg] MD Jarred Arias Work Phone: [facility] 02-13-2024 09:10-0400 Body temperature 98 [degF] MD Jarred Arias Work Phone: [facility] 02-13-2024 08:34-0400 Inhaled oxygen flow rate 8 L/min MD Jarred Arias Work Phone: [facility] 02-13-2024 07:42-0400 Body mass index (BMI) [Ratio] 33.2 kg/m2 MD Jarred Arias Work Phone: [facility] 02-13-2024 07:23-0400 Body height 182.88 cm MD Jarred Arias Work Phone: [facility] 02-13-2024 07:23-0400 Body weight 111 kg MD Jarred Arias Work Phone: [facility] 01-17-2024 08:30-0400 Blood Pressure Location Domenico GIPSON [facility] 01-17-2024 08:30-0400 Diastolic blood pressure 82 mm[Hg] Domenico GIPSON [facility] 01-17-2024 08:30-0400 Systolic blood pressure 142 mm[Hg] Domenico GIPSON [facility] 11-26-2023 13:07-0400 Heart rate 82 /min Christian Bustos [facility] 11-26-2023 13:07-0400 SaO2% (BldA) [Mass fraction] 90 % Christian Burchos [facility] 11-26-2023 13:06-0400 Respiratory rate 16 /min Christian Burchos [facility] 11-26-2023 13:05-0400 Diastolic blood pressure 87 mm[Hg] Christian Burchos [facility] 11-26-2023 13:05-0400 Mean blood pressure 109 mm[Hg] Christian Burchos [facility] 11-26-2023 13:05-0400 Systolic blood pressure 154 mm[Hg] Christian Burchos [facility] 11-26-2023 09:33-0400 Heart rate 70 /min Christian Pocos [facility] 11-26-2023 09:33-0400 SaO2% (BldA) [Mass fraction] 92 % Christian Pocos [facility] 11-26-2023 09:32-0400 Diastolic blood pressure 83 mm[Hg] Christian Pocos [facility] 11-26-2023 09:32-0400 Mean blood pressure 99 mm[Hg] Christian Pocos [facility] 11-26-2023 09:32-0400 Systolic blood pressure 131 mm[Hg] Christian Pocos [facility] 11-26-2023 09:32-0400 Respiratory rate 16 /min Christian Pocos [facility] 11-26-2023 09:31-0400 Heart rate 70 /min Christian Pocos [facility] 11-26-2023 09:31-0400 Respiratory rate 14 /min Christian Pocos [facility] 11-26-2023 09:31-0400 SaO2% (BldA) [Mass fraction] 94 % Christian Pocos [facility] 11-26-2023 09:24-0400 Body temperature 97.34 [degF] Christian Pocos [facility] 11-26-2023 09:24-0400 Diastolic blood pressure 79 mm[Hg] Christian Pocos [facility] 11-26-2023 09:24-0400 Mean blood pressure 95 mm[Hg] Christian Pocos [facility] 11-26-2023 09:24-0400 Respiratory rate 10 /min Christian Pocos [facility] 11-26-2023 09:24-0400 Systolic blood pressure 126 mm[Hg] Christian Pocos [facility] 11-26-2023 09:20-0400 Mean blood pressure 95 mm[Hg] Christian Pocos [facility] 11-26-2023 09:20-0400 Respiratory rate 16 /min Christian Pocos [facility] 11-26-2023 09:10-0400 Mean blood pressure 90 mm[Hg] Christian Pocos [facility] 11-26-2023 09:01-0400 Blood Pressure Location Christian Pocos [facility] 11-26-2023 09:01-0400 Body temperature 97.7 [degF] Christian Pocos [facility] 11-26-2023 08:50-0400 Respiratory rate 5 /min Christian Pocos [facility] 11-26-2023 06:33-0400 Blood Pressure Location Christian Pocos [facility] 11-26-2023 06:33-0400 Mean blood pressure 112 mm[Hg] Christian Pocos [facility] 11-26-2023 06:31-0400 Blood Pressure Location Christian Pocos [facility] 11-26-2023 06:00-0400 Body temperature 98.24 [degF] Christian Pocos [facility] 11-14-2023 12:46-0400 Body temperature 98.6 [degF] ROSSY CHO [facility] 11-14-2023 12:46-0400 Diastolic blood pressure 83 mm[Hg] ROSSY CHO [facility] 11-14-2023 12:46-0400 Heart rate 71 /min ROSSY CHO [facility] 11-14-2023 12:46-0400 Respiratory rate 16 /min ROSSY CHO [facility] 11-14-2023 12:46-0400 Systolic blood pressure 139 mm[Hg] ROSSY CHO [facility] 11-11-2023 10:57-0400 Diastolic blood pressure 89 mm[Hg] Christian Pocos [facility] 11-11-2023 10:57-0400 Heart rate 61 /min Christian Pocos [facility] 11-11-2023 10:57-0400 Mean blood pressure 111 mm[Hg] Christian Pocos [facility] 11-11-2023 10:57-0400 Systolic blood pressure 155 mm[Hg] Christian Pocos [facility] 11-11-2023 10:56-0400 Heart rate 59 /min Christian Pocos [facility] 11-11-2023 10:56-0400 SaO2% (BldA) [Mass fraction] 95 % Christian Pocos [facility] 11-11-2023 10:56-0400 Diastolic blood pressure 87 mm[Hg] Christian Pocos [facility] 11-11-2023 10:56-0400 Mean blood pressure 108 mm[Hg] Christian Pocos [facility] 11-11-2023 10:56-0400 Systolic blood pressure 151 mm[Hg] Christian Pocos [facility] 11-11-2023 10:56-0400 Body temperature 98.24 [degF] Christian Bustos [facility] 11-11-2023 10:55-0400 Respiratory rate 16 /min Christian Bustos [facility] 10-22-2023 17:20-0400 Diastolic blood pressure 88 mm[Hg] MD Jarred Arias Work Phone: [facility] 10-22-2023 17:20-0400 Heart rate 70 /min MD Jarred Arias Work Phone: [facility] 10-22-2023 17:20-0400 Respiratory rate 16 /min MD Jarred Arias Work Phone: [facility] 10-22-2023 17:20-0400 SaO2% (BldA) [Mass fraction] 93 % MD Jarred Arias Work Phone: [facility] 10-22-2023 17:20-0400 Systolic blood pressure 148 mm[Hg] MD Jarred Arias Work Phone: [facility] 10-22-2023 14:58-0400 Body temperature 98 [degF] MD Jarred Arias Work Phone: [facility] 10-22-2023 14:28-0400 Inhaled oxygen flow rate 8 L/min MD Jarred Arias Work Phone: [facility] 10-22-2023 12:26-0400 Body height 182.88 cm MD Jarred Arias Work Phone: [facility] 10-22-2023 12:26-0400 Body mass index (BMI) [Ratio] 32.8 kg/m2 MD Jarred Arias Work Phone: [facility] 10-22-2023 12:26-0400 Body weight 110 kg MD Jarred Arias Work Phone: [facility] 09-18-2023 14:16-0500 Body height 182.9 cm Juan Cook DO Work Phone: [facility] 09-18-2023 14:16-0500 Body mass index (BMI) [Ratio] 31.46 kg/m2 Juan Cook DO Work Phone: [facility] 09-18-2023 14:16-0500 Body weight 105.23 kg Juan Cook DO Work Phone: [facility] 09-18-2023 11:15-0500 Body temperature 97.59 [degF] REZA Garcia MD Work Phone: [facility] 09-18-2023 11:15-0500 Body weight 108.9 kg REZA Garcia MD Work Phone: [facility] 09-18-2023 11:15-0500 Diastolic blood pressure 82 mm[Hg] REZA Garcia MD Work Phone: [facility] 09-18-2023 11:15-0500 Heart rate 69 /min REZA Garcia MD Work Phone: [facility] 09-18-2023 11:15-0500 Respiratory rate 16 /min REZA Garcia MD Work Phone: [facility] 09-18-2023 11:15-0500 SaO2% (BldA) [Mass fraction] 96 % REZA Garcia MD Work Phone: [facility] 09-18-2023 11:15-0500 Systolic blood pressure 149 mm[Hg] REZA Garcia MD Work Phone: [facility] 09-05-2023 09:04-0500 Body temperature 96.8 [degF] REZA Garcia MD Work Phone: [facility] 09-05-2023 09:04-0500 Body weight 109 kg REZA Garcia MD Work Phone: [facility] 09-05-2023 09:04-0500 Heart rate 71 /min REZA Garcia MD Work Phone: [facility] 09-05-2023 09:04-0500 Respiratory rate 18 /min REZA Garcia MD Work Phone: [facility] 09-05-2023 09:04-0500 SaO2% (BldA) [Mass fraction] 97 % REZA Garcia MD Work Phone: [facility] 09-03-2023 11:45-0500 Body height 182.9 cm Jarred Arias MD Work Phone: [facility] 09-03-2023 11:45-0500 Body mass index (BMI) [Ratio] 31.46 kg/m2 Jarred Arias MD Work Phone: [facility] 09-03-2023 11:45-0500 Body weight 105.23 kg Jarred Arias MD Work Phone: [facility] 06-03-2023 11:07-0400 Blood Pressure Location Domenico APURVA [facility] 06-03-2023 11:07-0400 Diastolic blood pressure 82 mm[Hg] Domenico GIPSON [facility] 06-03-2023 11:07-0400 Systolic blood pressure 134 mm[Hg] Domenico GIPSON [facility] 05-20-2023 16:03-0400 Diastolic blood pressure 102 mm[Hg] MD Jarred Arias Work Phone: [facility] 05-20-2023 16:03-0400 Heart rate 74 /min MD Jarred Arias Work Phone: [facility] 05-20-2023 16:03-0400 Respiratory rate 16 /min MD Jarred Arias Work Phone: [facility] 05-20-2023 16:03-0400 SaO2% (BldA) [Mass fraction] 93 % MD Jarred Arias Work Phone: [facility] 05-20-2023 16:03-0400 Systolic blood pressure 161 mm[Hg] MD Jarred Arias Work Phone: [facility] 05-20-2023 15:18-0400 Inhaled oxygen flow rate 4 L/min MD Jarred Arias Work Phone: [facility] 05-20-2023 14:30-0400 Body height 182.88 cm MD Jarred Arias Work Phone: [facility] 05-20-2023 14:30-0400 Body mass index (BMI) [Ratio] 32.3 kg/m2 MD Jarred Arias Work Phone: [facility] 05-20-2023 14:30-0400 Body weight 108 kg MD Jarred Arias Work Phone: [facility] 05-20-2023 13:03-0400 Body temperature 98.5 [degF] MD Jarred Arias Work Phone: [facility] 04-29-2023 07:32-0400 Blood Pressure Location Domenico GIPSON [facility] 04-29-2023 07:32-0400 Diastolic blood pressure 81 mm[Hg] Domenico GIPSON [facility] 04-29-2023 07:32-0400 Heart rate 77 /min Domenico GIPSON [facility] 04-29-2023 07:32-0400 Systolic blood pressure 131 mm[Hg] Domenico GIPSON [facility] 04-24-2023 13:51-0400 Blood Pressure Location ROSSY CHO [facility] 04-24-2023 13:51-0400 Body temperature 97.88 [degF] ROSSY MARQUIS [facility] 04-24-2023 13:51-0400 Diastolic blood pressure 84 mm[Hg] ROSSY MARQUIS [facility] 04-24-2023 13:51-0400 Systolic blood pressure 138 mm[Hg] ROSSY MARQUIS [facility] 03-12-2023 10:21-0400 Blood Pressure Location ROSSY MARQUIS [facility] 03-12-2023 10:21-0400 Diastolic blood pressure 94 mm[Hg] ROSSY MARQUIS [facility] 03-12-2023 10:21-0400 Heart rate 75 /min ROSSY MARQUIS [facility] 03-12-2023 10:21-0400 Systolic blood pressure 155 mm[Hg] ROSSY MARQUIS [facility] 11-21-2022 11:27-0400 Body temperature 97.59 [degF] REZA Garcia MD Work Phone: [facility] 11-21-2022 11:27-0400 Body weight 109.32 kg REZA Garcia MD Work Phone: [facility] 11-21-2022 11:27-0400 Diastolic blood pressure 89 mm[Hg] REZA Garcia MD Work Phone: [facility] 11-21-2022 11:27-0400 Heart rate 87 /min REZA Garcia MD Work Phone: [facility] 11-21-2022 11:27-0400 Respiratory rate 16 /min REZA Garcia MD Work Phone: [facility] 11-21-2022 11:27-0400 SaO2% (BldA) [Mass fraction] 97 % REZA Garcia MD Work Phone: [facility] 11-21-2022 11:27-0400 Systolic blood pressure 163 mm[Hg] REZA Garcia MD Work Phone: [facility] 05-16-2022 09:48-0400 Body temperature 97.2 [degF] REZA Garcia MD Work Phone: [facility] 05-16-2022 09:48-0400 Body weight 106.59 kg REZA Garcia MD Work Phone: [facility] 05-16-2022 09:48-0400 Diastolic blood pressure 76 mm[Hg] REZA Garcia MD Work Phone: [facility] 05-16-2022 09:48-0400 Respiratory rate 16 /min REZA Garcia MD Work Phone: [facility] 05-16-2022 09:48-0400 SaO2% (BldA) [Mass fraction] 94 % REZA Garcia MD Work Phone: [facility] 05-16-2022 09:48-0400 Systolic blood pressure 155 mm[Hg] REZA Garcia MD Work Phone: [facility] 01-16-2022 11:20-0400 Blood Pressure Location Althea Rodriguez Jr. [facility] 01-16-2022 11:20-0400 Diastolic blood pressure 88 mm[Hg] Althea Rodriguez Jr. [facility] 01-16-2022 11:20-0400 Heart rate 16 /min Althea Rodriguez Jr. [facility] 01-16-2022 11:20-0400 Respiratory rate 16 /min Althea Rodriguez Jr. [facility] 01-16-2022 11:20-0400 Systolic blood pressure 149 mm[Hg] Althea Rodriguez Jr. [facility] 11-16-2021 14:19-0400 Body temperature 97.59 [degF] REZA Garcia MD Work Phone: [facility] 11-16-2021 14:19-0400 Body weight 109.95 kg REZA Garcia MD Work Phone: [facility] 11-16-2021 14:19-0400 Diastolic blood pressure 75 mm[Hg] REZA Garcia MD Work Phone: [facility] 11-16-2021 14:19-0400 Heart rate 90 /min REZA Garcia MD Work Phone: [facility] 11-16-2021 14:19-0400 Respiratory rate 16 /min REZA Garcia MD Work Phone: [facility] 11-16-2021 14:19-0400 SaO2% (BldA) [Mass fraction] 96 % REZA Garcia MD Work Phone: [facility] 11-16-2021 14:19-0400 Systolic blood pressure 166 mm[Hg] REZA Garcia MD Work Phone: [facility] Encounters Encounter Date Encounter Type Care Provider Facility Start: 09-27-2025 ambulatory Domenico GIPSON Facility :[facility] Start: 2025 End: 03-27-2025 External Result Encounter Jarred Arias MD Work Phone: [facility] Unsolicited Start: 2025 End: 03-27-2025 External Result Encounter Jarred Arias MD Work Phone: [facility] Unsolicited Start: 03-15-2025 End: 03-15-2025 ambulatory Domenico GIPSON Facility:[facility] Start: 03-15-2025 End: 03-15-2025 Patient encounter procedure Domenico Chastity GIPSON [facility] Start: 02-22-2025 End: 02-22-2025 ambulatory Domenico Chastity GIPSON Facility::[id number] Start: 02-19-2025 End: 02-19-2025 External Result Encounter Jarred Arias MD Work Phone: [facility] Unsolicited Start: 02-19-2025 End: 02-19-2025 External Result Encounter Jarred Arias MD Work Phone: [facility] Unsolicited Start: 02-15-2025 End: 02-15-2025 Telephone encounter Jarred Arias MD Work Phone: [facility] Start: 02-03-2025 End: 02-03-2025 ambulatory Domenico Chastity GIPSON Facility:[facility] Start: 02-03-2025 End: 02-03-2025 Patient encounter procedure Domenico GIPSON [facility] Start: 02-03-2025 End: 02-03-2025 ambulatory Domenico GIPSON Facility:[facility] Start: 02-03-2025 End: 02-03-2025 Patient encounter procedure Domenico Chastity GIPSON [facility] Start: 01-20-2025 End: 01-21-2025 External Result Encounter Jarred Arias MD Work Phone: [facility] Unsolicited Start: 01-20-2025 End: 01-21-2025 External Result Encounter Jarred Arias MD Work Phone: [facility] Unsolicited Start: 01-05-2025 End: 01-05-2025 Bamboo flowsheet Jarred Arias MD Work Phone: [facility] Start: 01-05-2025 End: 01-05-2025 Bamboo flowsheet Jarred Arias MD Work Phone: [facility] Start: 01-05-2025 End: 01-05-2025 Patient encounter procedure Jarred Arias MD Work Phone: [facility] Comment on above: Encounter for Medica re annual wellness exam (Primary Dx); Advance directive in chart; Encounter for screening for other disorder; Screening for alcohol problem; Benign essential hypertension ; Hypertensive nephropathy ; Stage 3a chronic kidney disease (CMS-HCC); Screening for diabetes mellitus (DM); Screening for lipid disorders; Malignant neoplasm of prostate (HCC); Cardiovascular event risk Start: 01-05-2025 End: 01-05-2025 ambulatory JARRED ARIAS Not Available Start: 12-16-2024 End: 12-17-2024 External Result Encounter Jarred Arias MD Work Phone: [facility] Unsolicited Start: 12-16-2024 End: 12-17-2024 External Result Encounter Jarred Arias MD Work Phone: [facility] Unsolicited Start: 12-14-2024 End: 12-14-2024 Telephone encounter Jarred Arias MD Work Phone: [facility] Start: 12-03-2024 End: 12-03-2024 Patient encounter procedure Kaye Kent MD Work Phone: Ophthalmology Comment on above: After-cataract of le ft eye with vision obscured (Primary Dx); Pseudophakia of left eye; Lymphoma of ocular adnexa (HCC); Nuclear senile cataract of right eye; Ocular hypertension of right eye Start: 12-03-2024 End: 12-03-2024 ambulatory KAYEMiguel A KENT Facility:[facility] Start: 11-25-2024 End: 11-25-2024 Patient encounter procedure Christian Carmona Pocmaximiliano DO Work Phone: [facility] Comment on above: S/P total left hip a rthroplasty (Primary Dx) Start: 11-25-2024 End: 11-25-2024 ambulatory CHRISTIAN Carmona POCOS Not Available Start: 11-25-2024 End: 11-25-2024 ambulatory CHRISTIAN Carmona POCOS Not Available Start: 10-01-2024 End: 10-01-2024 Bamboo flowsheet Jarred Arias MD Work Phone: [facility] Start: 10-01-2024 End: 10-01-2024 Bamboo flowsheet Jarred Arias MD Work Phone: [facility] Start: 10-01-2024 End: 10-01-2024 ambulatory JARRED ARIAS Not Available Start: 07-27-2024 End: 07-28-2024 External Result Encounter Jarred Arias MD Work Phone: [facility] Unsolicited Start: 07-27-2024 End: 07-28-2024 External Result Encounter Jarred Arias MD Work Phone: [facility] Unsolicited Start: 07-20-2024 End: 07-20-2024 Office outpatient visit 15 minutes Jarred Arias MD Work Phone: [facility] Comment on above: Benign essential hyp ertension (CMS/HCC) (Primary Dx); Chronic deep vein thrombosis (DVT) of calf muscle vein of right lower extremity (CMS/HCC); Anticoagulated Start: 07-12-2024 End: 07-12-2024 Emergency department patient visit Jarred Arias Facility:[facility] Start: 06-30-2024 End: 06-30-2024 ambulatory Domenico GIPSON Facility: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) Start: 05-27-2024 End: 05-27-2024 ambulatory JOSE POCOS Not Available Start: 05-27-2024 End: 05-27-2024 ambulatory JOSE POCOS Not Available Start: 05-20-2024 End: 05-20-2024 ambulatory KAYE KENT Facility:[facility] Start: 05-12-2024 End: 05-12-2024 Bamboo flowsheet Juan Cook DO Work Phone: [facility] Start: 05-12-2024 End: 05-12-2024 Bamboo flowsheet Juan Cook DO Work Phone: [facility] Start: 05-12-2024 End: 05-12-2024 Office outpatient visit 15 minutes Juan Cook DO Work Phone: [facility] Comment on above: History of parathyro idectomy (Primary Dx) Start: 05-12-2024 End: 05-12-2024 ambulatory JUAN COOK Not Available Start: 05-11-2024 End: 05-12-2024 External Result Encounter Jarred Arias MD Work Phone: [facility] External Department Unsolicited Start: 05-11-2024 End: 05-12-2024 External Result Encounter Jarred Arias MD Work Phone: [facility] External Department Unsolicited Start: 05-06-2024 End: 05-06-2024 Patient encounter procedure MD Jarred Arias Work Phone: [facility] [place] Work Phone: Start: 05-06-2024 End: 05-06-2024 ambulatory MD Jarred Arias Work Phone: [facility] Work Phone: Start: 05-05-2024 End: 05-05-2024 Patient encounter procedure Eye Measurements Work Phone: Ophthalmology Comment on above: Combined forms of ag e-related cataract of left eye; Combined forms of age-related cataract of right eye Start: 05-05-2024 End: 05-05-2024 Admission to establishment Pac Winn 1 Work Phone: Pre Anesthesia Start: 05-05-2024 End: 05-05-2024 ambulatory KAYE KENT Facility:[facility] Start: 05-05-2024 End: 05-05-2024 Anesthesia consultation [place] [address] Work Phone: Pre Anesthesia Comment on above: Pre-op evaluation (P rimary Dx); Primary hypertension; Prostate cancer (HCC); Deep vein thrombosis (DVT) of distal vein of lower extremity, unspecified chronicity, unspecified laterality (HCC); Lymphoma of ocular adnexa (HCC); Obesity (BMI 30.0-34.9) Start: 05-05-2024 Encounter for other preprocedural examination KAYE KENT [facility] Start: 05-05-2024 End: 05-05-2024 Preprocedural examination done [facility] Winn 1 Work Phone: [facility] Work Phone: Start: 04-22-2024 ambulatory KAYE KENT Facility :[facility] Start: 04-16-2024 End: 04-16-2024 Telephone encounter Kaye Kent MD Work Phone: Ophthalmology Comment on above: Schedule Surgery Start: 04-14-2024 End: 04-14-2024 ambulatory KAYE KENT Facility:[facility] Start: 04-14-2024 End: 04-14-2024 Patient encounter procedure Kaye Kent MD Work Phone: Ophthalmology Comment on above: Combined forms of ag e-related cataract of left eye (Primary Dx); Combined forms of age-related cataract of right eye; Lymphoma of ocular adnexa (HCC); Ocular hypertension of right eye; Drusen of macula, left Start: 03-03-2024 End: 03-03-2024 Patient encounter procedure Domenico GIPSON [facility] [place] Start: 02-24-2024 End: 02-24-2024 ambulatory CHRISTIAN Carmona VEGA Not Available Start: 02-18-2024 End: 02-18-2024 Patient encounter procedure Domenico GIPSON [facility] [place] Start: 02-13-2024 End: 02-13-2024 Admission to same day surgery center MD Jarred Arias Work Phone: [facility] [place] Start: 02-13-2024 End: 02-13-2024 ambulatory MD Jarred Arias Work Phone: [facility] Work Phone: Start: 02-03-2024 End: 02-03-2024 ambulatory JUAN COOK Not Available Start: 01-31-2024 End: 01-31-2024 Patient encounter procedure MD Jarred Arias Work Phone: [facility] [place] Work Phone: Start: 01-31-2024 End: 01-31-2024 ambulatory Juan Cook Facility:[facility] Start: 01-29-2024 End: 01-29-2024 Patient encounter procedure MD Jarred Arias Work Phone: [facility] Work Phone: Start: 01-29-2024 End: 01-29-2024 ambulatory MD Jarred Arias Work Phone: [facility] Work Phone: Start: 01-29-2024 Encounter for prepro cedural laboratory examination Domenico Gipson [facility] Start: 01-27-2024 End: 01-27-2024 ambulatory JARRED ARIAS Not Available Start: 01-23-2024 End: 01-23-2024 ambulatory JARRED ARIAS Not Available Start: 01-17-2024 End: 01-17-2024 Patient encounter procedure Domenico GIPSON [facility] [place] Start: 01-16-2024 End: 01-16-2024 ambulatory MARIVEL ORNELAS Not Available Start: 01-13-2024 End: 01-13-2024 ambulatory NELY APODACA Not Available Start: 01-09-2024 End: 01-09-2024 ambulatory NELY APODACA Not Available Start: 11-26-2023 End: 11-26-2023 Admission to same day surgery center Christian Bustos [facility] Start: 11-14-2023 End: 11-14-2023 Lab Drop off ROSSY CHO [facility] Start: 11-14-2023 End: 11-14-2023 Patient encounter procedure ROSSY CHO [facility] [place] Start: 11-12-2023 Telephone encounter G Jose Garcia MD Work Phone: [facility] Comment on above: Appointment Confirma tion Start: 11-11-2023 End: 11-11-2023 Patient encounter procedure Christian Bustos [facility] Start: 11-01-2023 End: 11-12-2023 Pre-admission assessment Christian Bustos [facility] Start: 10-29-2023 End: 10-29-2023 Patient encounter procedure MD Jarred Arias Work Phone: [facility] [place] Work Phone: Start: 10-29-2023 End: 10-29-2023 ambulatory MD Jarred Arias Work Phone: [facility] Work Phone: Start: 10-22-2023 End: 10-22-2023 Admission to same day surgery center MD Jarred Arias Work Phone: [facility] [place] Start: 10-22-2023 End: 10-22-2023 ambulatory MD Jarred Arias Work Phone: [facility] Work Phone: Start: 10-11-2023 End: 10-11-2023 Patient encounter procedure MD Jarred Arias Work Phone: [facility] Work Phone: Start: 10-11-2023 End: 10-11-2023 ambulatory Jarred Arias Facility:[facility] Start: 09-23-2023 End: 09-23-2023 Patient encounter procedure MD Jarred Arias Work Phone: [facility] [place] Work Phone: Start: 09-23-2023 End: 09-23-2023 ambulatory MD Jarred Arias Work Phone: [facility] Work Phone: Start: 09-18-2023 End: 09-18-2023 Office outpatient new 45 minutes Juan Cook DO Work Phone: [facility] Comment on above: Primary hyperparathy roidism (CMS/HCC) (Primary Dx); Parathyroid abnormality (CMS/HCC); Hypercalcemia Start: 09-18-2023 End: 09-18-2023 Patient encounter procedure Marko Garcia MD Work Phone: Radiation Oncology Comment on above: Pain of left hip (Pr imary Dx) Start: 09-16-2023 End: 09-16-2023 Subsequent hospital visit by physician Arrival Time Radiology Work Phone: Radiology Pet CT Comment on above: Grade I follicular l ymphoma of extranodal site excluding spleen and other solid organs (HCC) [C82.09] Start: 09-05-2023 End: 09-05-2023 Patient encounter procedure Marko Garcia MD Work Phone: Radiation Oncology Comment on above: History of prostate cancer (Primary Dx); Malignant neoplasm of left orbit (HCC); 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); Hypercalcemia Start: 09-03-2023 End: 09-03-2023 Office outpatient visit 25 minutes Jarred Arias MD Work Phone: [facility] Comment on above: Hypercalcemia (Prima ry Dx); 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); 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); Thoracic aortic ectasia (I77.810); Lumbar back pain with radiculopathy affecting left lower extremity; Lumbar myelopathy (CMS/HCC); Atrophy of quadriceps femoris muscle; Other idiopathic scoliosis, thoracolumbar region Start: 06-03-2023 End: 06-03-2023 Patient encounter procedure Domenico GIPSON [facility] Start: 05-24-2023 End: 05-24-2023 Patient encounter procedure JARRED ARIAS [facility] Start: 05-20-2023 End: 05-20-2023 Admission to same day surgery center MD Jarred Arias Work Phone: [facility] [place] Start: 05-20-2023 End: 05-20-2023 ambulatory MD Jarred Arias Work Phone: [facility] Work Phone: Start: 05-07-2023 End: 05-07-2023 ambulatory MD Jarred Arias Work Phone: [facility] Work Phone: Start: 05-07-2023 End: 05-07-2023 Patient encounter procedure MD Jarred Arias Work Phone: [facility] Work Phone: Start: 04-29-2023 End: 04-29-2023 Patient encounter procedure Domenico GIPSON [facility] Start: 04-24-2023 End: 04-24-2023 Lab Drop off ROSSY Miguel A MARQUIS [facility] Start: 04-24-2023 End: 04-24-2023 Patient encounter procedure ROSSY E MARQUIS [facility] Start: 03-12-2023 End: 03-12-2023 Patient encounter procedure ROSSY E MARQUIS [facility] Start: 02-12-2023 End: 02-12-2023 Lab Drop off ROSSY E MARQUIS [facility] Start: 02-12-2023 End: 02-12-2023 Patient encounter procedure JARRED ARIAS [facility] Start: 11-21-2022 End: 11-21-2022 Patient encounter procedure [...] Start: 08-28-2022 End: 08-28-2022 Lab Drop off ROSSY CHO [facility] Start: 08-28-2022 End: 08-28-2022 Patient encounter procedure ROSSY CHO [facility] Start: 08-21-2022 Orders Only Lissa Gupta RN [...] Start: 03-28-2022 End: 03-28-2022 Lab Drop off ROSSY CHO [facility] Start: 03-28-2022 End: 03-28-2022 Patient encounter procedure ROSSY CHO [facility] Start: 03-14-2022 End: 03-14-[address] ALTHEA Blanco Facility:[facility] Start: 03-12-2022 Encounter for prepro cedural laboratory examination DR ALTHEA Blanco [facility] Start: 03-10-2022 End: 03-11-[address] ALTHEA Blanco Facility:[facility] Start: 03-10-2022 End: 03-11-2022 Encounter for preprocedural laboratory examination DR ALTHEA Blanco Facility:[facility] Start: 03-08-2022 Encounter for prepro cedural cardiovascular examination DR ALTHEA Blanco [facility] Start: 03-02-2022 End: 03-03-[address] ALTHEA Blanco Facility:[facility] Start: 02-08-2022 End: 02-08-2022 Patient encounter procedure Althea Rodriguez Jr. [facility] Start: 01-16-2022 End: 01-16-2022 Patient encounter procedure Althea Rodriguez Jr. [facility] Start: 01-04-2022 End: 01-04-2022 Lab Drop off ROSSY CHO [facility] Start: 01-04-2022 End: 01-04-2022 Patient encounter procedure ROSSY CHO [facility] Start: 12-29-2021 End: 12-29-2021 Lab Drop off Althea Rodriguez Jr. [facility] Start: 12-29-2021 End: 12-29-2021 Patient encounter procedure Althea Rodriguez Jr. [facility] [place] Start: 11-16-2021 End: 11-16-2021 Patient encounter procedure Marko Garcia MD Work Phone: Radiation Oncology Comment on above: Malignant neoplasm o f left orbit (HCC) (Primary Dx) Start: 11-08-2021 Telephone encounter G Jose Garcia MD Work Phone: Radiation Oncology Comment on above: Orders Start: 03-15-2021 End: 03-15-2021 Subsequent hospital visit by physician Arrival Time Radiology Work Phone: Radiology Pet CT Comment on above: Lung nodules [R91.8] Procedures Date Procedure Procedure Detail Performing Clinician Start: 2025 Prothrombin time Jarred Arias MD Work Phone: Start: 02-22-2025 Cystoscopy Domenico TEJADA Start: 02-19-2025 Prothrombin time Jarred Arias MD Work Phone: Start: 01-20-2025 Prothrombin time Jarred Arias MD Work Phone: Start: 01-06-2025 Comprehensive metabolic panel Jarred Arias MD Work Phone: Start: 01-06-2025 Lipid panel Jarred cardenas MD Work Phone: Start: 12-16-2024 Prothrombin time Jarred Arias MD Work Phone: Start: 12-03-2024 Post-cataract laser surgery Kaye Kent MD Work Phone: Start: 11-25-2024 Radex hip unilateral with pelvis 2-3 views Christian Bustos DO Work Phone: Start: 07-27-2024 Prothrombin time Jarred Arias MD Work Phone: Start: 05-27-2024 Radex hip unilateral with pelvis 2-3 views Christian Bustos DO Work Phone: Start: 05-11-2024 Prothrombin time Jarred Arias MD Work Phone: Start: 05-05-2024 IOL BIOMETRY W/ IOL CALC OU (BOTH EYES) Kaye Kent MD Work Phone: Start: 05-05-2024 ASCAN ONLY - DIAGNOS TIC OU (BOTH EYES) Kaye Kent MD Work Phone: Start: 02-13-2024 Cystoscopy MD Jarred Arias Work Phone: Start: 02-13-2024 Laser ablation of prostate Domenico APURVA Start: 01-17-2024 Flexible cystoscopy Isaiah yaya GIPSON Start: 11-26-2023 Total replacement of hip Christian Bustos Start: 10-22-2023 Lobectomy of thyroid gland MD Jarred Arias Work Phone: Start: 09-23-2023 CT of soft tissues o f neck with contrast MD Jarred Arias Work Phone: Start: 09-23-2023 Single photon emissi on computed tomography of parathyroid MD Jarred Arias Work Phone: Start: 09-16-[address] atten uation skull base mid-thigh G Jose Garcia MD Work Phone: Start: 09-16-2023 Gluc bld gluc mntr d ev cleared fda spec home use [facility] Provider Start: 09-04-2023 Calcium ionized Jarred Arias MD Work Phone: Start: 05-20-2023 Abdomen endoscopy MD Milan Arias Work Phone: Start: 05-20-2023 Transurethral prostatectomy Domenico APURVA Start: 11-15-[address] CORINNA GARCIA Comment on above: Performed By: #### C VDTB #### [facility] [address] [address] [address] Papi Ramirez Start: 03-14-2022 Cystolitholapaxy JESUS MANUEL LUIS MARQUIS Start: 02-08-2022 Cystourethroscopy wi th dilation of urethral stricture ROSSY CHO Start: 05-17-2021 Adult depression scr eening assessment REZA Garcia MD Work Phone: Start: 03-15-2021 Ct thorax w/contrast material Isacc Romero MD Work Phone: Start: 10-12-2020 Colonoscopy Jarred griffin MD Work Phone: Start: 08-24-2020 Cystoscopy Althea cmrae Jr. Start: 05-15-2017 Endoscopic transuret hral fulguration of prostate Althea Rodriguez Jr. Start: 09-07-2016 Transrectal biopsy o f prostate using ultrasound guidance Althea Rodriguez Jr. Start: 08-05-2016 Brachytherapy Althea caicedo Jr. Colonoscopy Althea Blanco Extraction of cataract Ravinder GIPSON Plan of Treatment Date Care Activity Detail Author Start: 10-12-2030 Screening for malignant neoplasm of colon [facility] Start: 10-10-2026 Diabetes Screening Diabetes Screening [facility] Start: 08-28-2026 Diabetes Screening Diabetes Screening [facility] Start: 01-05-2026 Medicare Annual Wellness (AWV) Medicare Annual Wellness (AWV) [facility] Start: 04-14-2025 End: 10-06-2025 ASCAN ONLY - DIAGNOSTIC OU (BOTH EYES) ASC[facility] ONLY - DIAGNOSTIC OU (BOTH EYES) [facility] Imaging Routine Combined forms of age-related cataract of left eye Combined forms of age-related cataract of right eye Expected: 04/14/2025, Expires: 10/06/2025 [facility] Comment on above: Expected: 04/14/2025, Expires: Start: 04-14-2025 End: 10-06-2025 IOL BIOMETRY W/ IOL CALC OU (BOTH EYES) IOL BIOMETRY W/ IOL CALC OU (BOTH EYES) [facility] Imaging Routine Combined forms of age-related cataract of left eye Combined forms of age-related cataract of right eye Expected: 04/14/2025, Expires: 10/06/2025 [facility] Comment on above: Expected: 04/14/2025, Expires: Start: 04-05-2025 Influenza vaccination [facility] Start: 01-26-2025 Medicare Annual Wellness (AWV) Medicare Annual Wellness (AWV) [facility] Start: 01-05-2025 End: 01-05-2025 Patient encounter procedure [facility] 1 00 Comment on above: Encounter for Medicare annual wellness e xam; Advance directive in chart; Encounter for screening for other disorder; Screening for alcohol problem; Benign essential hypertension (CMS/HCC); Hypertensive nephropathy (CMS/HCC); Stage 3a chronic kidney disease (HCC) (CMS/HCC); Screening for diabetes mellitus (DM); Screening for lipid disorders Start: 11-25-2024 End: 11-25-2024 Patient encounter procedure 11/25/2024 9:30 AM EDT Office Visit [facility] [address] [place] [id number] Christian Bustos, DO [address] [place] [address] [facility] Start: 08-05-2024 Advance Directive Discussion Advance Directive Discussion [facility] Start: 07-16-2024 End: 07-16-2024 Patient encounter procedure [facility] 1 00 Start: 05-27-2024 End: 05-27-2024 Patient encounter procedure 05/27/2024 9:30 AM EDT Office Visit [facility] [address] [place] [id number] Christian Bustos, DO [address] [place] [address] [facility] Start: 05-13-2024 End: 05-13-2024 Admission to same day surgery center 05/13/2024 2:30 PM EDT - 05/13/2024 3:05 PM EDT Surgery Ambulatory Surgery [address] [place] [address] Kaye Kent MD [address] [facility] [address] [address] PHACOEMULSIFICATION CATARACT IMPLANT INTRAOCULAR LENS W/O ENDOSCOPIC CYCLOPHOTOCOAGULATION Ambulatory Surgery Comment on above: PHACOEMULSIFICATION CATARACT IMPLANT INT RAOCULAR LENS W/O ENDOSCOPIC CYCLOPHOTOCOAGULATION Start: 05-13-2024 End: 05-13-2024 Oph bmtry prtl coher intrfrmtry io lens pwr patrick OPHTHALMIC BIOMETRY BY PARTIAL COHERENCE INTERFEROMETRY W/INTRAOCULAR LENS POWER CALCULATION Combined forms of age-related cataract of left eye 05/13/2024 2:30 PM EDT [facility] Start: 05-13-2024 Subsequent hospital visit by physician 05/13/2024 2:30 PM EDT Hospital Encounter Ambulatory Surgery [address] [facility] [place] [address] Kaye Kent MD [address] [place] [address] Combined forms of age-related cataract of left eye [H25.812] Ambulatory Surgery Comment on above: Combined forms of age-related cataract o f left eye [H25.812] Start: 05-13-2024 End: 05-13-2024 Xcapsl ctrc rmvl insj io lens prosth w/o ecp PHACOEMULSIFICATION CATARACT IMPLANT INTRAOCULAR LENS W/O ENDOSCOPIC CYCLOPHOTOCOAGULATION Combined forms of age-related cataract of left eye 05/13/2024 2:30 PM EDT [facility] GOLD[facility] Start: 05-13-2024 End: 05-13-2024 Admission to same day surgery center Ambulatory Surgery Comment on above: PHACOEMULSIFICATION CATARACT IMPLANT INT RAOCULAR LENS W/O ENDOSCOPIC CYCLOPHOTOCOAGULATION Start: 05-13-2024 End: 05-13-2024 Oph bmtry prtl coher intrfrmtry io lens pwr patrick [facility] Start: 05-13-2024 Subsequent hospital visit by physician Ambulatory Surgery Comment on above: Combined forms of age-related cataract o f left eye [H25.812] Start: 05-13-2024 End: 05-13-2024 Xcapsl ctrc rmvl insj io lens prosth w/o ecp [facility] Start: 05-12-2024 End: 05-12-2024 Patient encounter procedure [facility] JACOBY [facility]ER[facility] Comment on above: Arrived Start: 05-05-2024 End: 05-05-2024 Patient encounter procedure 05/05/2024 2:00 PM EDT Office Visit [facility] [address] [facility] [place] [address] CATARACT SURGERY LEFT EYE ONLY [facility] Ophthalmology Comment on above: CATARACT SURGERY LEFT EYE ONLY [facility] Start: 05-05-2024 End: 05-05-2024 Admission to same day surgery center 05/05/2024 1:00 PM EDT PAT Pre Anesthesia [address] [place] [address] 1, Pacc Winn [address] [place] [address] CATARACT SURGERY LEFT EYE ONLY [facility] Pre Anesthesia Comment on above: CATARACT SURGERY LEFT EYE ONLY [facility] Start: 04-22-2024 End: 04-22-2024 Patient encounter procedure 04/22/2024 2:15 PM EDT Office [place] [address] CATARACT SURGERY LEFT EYE ONLY [facility] [employer] Screening Comment on above: CATARACT SURGERY LEFT EYE ONLY [facility] Start: 04-05-2024 Influenza vaccination [facility] Start: 03-02-2024 DIABETES SCREEN DIABETES SCREEN [facility] Start: 02-13-2024 End: 02-13-2024 [facility] Start: 10-22-2023 [facility] Start: 10-22-2023 [facility] Start: 10-03-2023 End: 10-03-2023 Patient encounter procedure 10/03/2023 11:00 AM EST Procedure Visit [facility] [address] [place] [address] [facility] Start: 09-26-2023 End: 09-26-2023 Professional / ancillary services management 09/26/2023 11:00 AM EST Ancillary Procedure [facility] [id number] [place] [id number] [facility] Start: 08-05-2023 Advance Directive Discussion Advance Directive Discussion [facility] Start: 08-05-2023 Behavioral Health Screening Behavioral Health Screening [facility] Start: 08-05-2023 Depression Assessment Depression Assessment [facility] Start: 05-20-2023 End: 05-20-2023 [facility] Start: 04-05-2023 Covid-19 Vaccine () Covid-19 Vaccine () [facility] Start: 04-05-2023 Influenza vaccination [facility] Start: 11-14-2022 End: 01-14-2023 Prostate specific Ag [Mass/volume] in Serum or Plasma PSA/PROSTSPECAG DIAG Lab Routine Malignant neoplasm of prostate (HCC) Expected: 11/14/2022, Expires: 01/14/2023 [facility] Work Phone: Comment on above: Expected: 11/14/2022, Expires: 3 Start: 11-13-2022 End: 01-13-2023 CREATININE BLD CREATININE BLD Lab Routine Malignant neoplasm of left orbit (HCC) Expected: 11/13/2022, Expires: 01/13/2023 [facility] Work Phone: Comment on above: Expected: 11/13/2022, Expires: 3 Start: 08-21-2022 End: 10-21-2022 Prostate specific Ag [Mass/volume] in Serum or Plasma [facility] Work Phone: Comment on above: Expected: 08/21/2022, Expires: 3 Start: 08-05-2022 ADVANCE DIRECTIVE DISCUSSION ADVANCE DIRECTIVE DISCUSSION [facility] Start: 08-05-2022 DEPRESSION ASSESSMENT DEPRESSION ASSESSMENT [facility] Start: 10-13-2022 Adult depression screening assessment DEPRESSION SCREENING [facility] Start: 05-03-2022 End: 07-03-2022 CREATININE BLD CREATININE BLD Lab Routine Malignant neoplasm of left orbit (HCC) Expected: 05/03/2022, Expires: 07/03/2022 [facility] Work Phone: Comment on above: Expected: 05/03/2022, Expires: Start: 04-05-2022 Influenza vaccination [facility] Start: 11-09-2021 End: 01-09-2022 Prostate specific Ag [Mass/volume] in Serum or Plasma PSA/PROSTSPECAG DIAG Lab Routine History of prostate cancer Expected: 11/09/2021 (Approximate), Expires: 01/09/2022 [facility] Work Phone: Comment on above: Expected: 11/09/2021 (Approximate), Expi res: 01/09/2022 Start: 08-05-2021 ADVANCE DIRECTIVE DISCUSSION ADVANCE DIRECTIVE DISCUSSION [facility] Start: 08-05-2021 DEPRESSION ASSESSMENT DEPRESSION ASSESSMENT [facility] Start: 07-15-2018 Pneumococcal Vaccine: 50+ (2 of 2 - PCV) Pneumococcal Vaccine: 50+ (2 of 2 - PCV) [facility] Start: 07-15-2018 Pneumococcal Vaccine: 65+ (2 of 2 - PCV) Pneumococcal Vaccine: 65+ (2 of 2 - PCV) [facility] Start: 07-15-2018 Pneumococcal Vaccine: 65+ Years (2 - PCV) Pneumococcal Vaccine: 65+ Years (2 - PCV) [facility] Start: 2017 PNEUMOVAX AGE 65 AND OVER WITH 5YR LOOKBACK (#1) PNEUMOVAX AGE 65 AND OVER WITH 5YR LOOKBACK (#1) [facility] Start: 2012 RSV Vaccine (1 - 1-dose 60+ series) RSV Vaccine (1 - 1-dose 60+ series) [facility] Start: 2012 RSV Vaccine (1 - Risk 60-74 years 1-dose series) RSV Vaccine (1 - Risk 60-74 years 1-dose series) [facility] Start: 2002 SHINGRIX VACCINE (1 of 2) SHINGRIX VACCINE (1 of 2) [facility] Start: 1997 COLOGUARD (FIT-DNA) COLOGUARD (FIT-DNA) [facility] Start: 1997 Colonoscopy COLONOSCOPY [facility] Start: 1997 COLORECTAL CANCER SCREENING COLORECTAL CANCER SCREENING [facility] Start: [address] COLONOGRAPHY [facility] Start: 1997 FECAL OCCULT BLOOD FECAL OCCULT BLOOD [facility] Start: 1997 Screening for malignant neoplasm of colon [facility] Start: 1997 SIGMOIDOSCOPY SIGMOIDOSCOPY [facility] Start: 1987 Lipid panel Lipid Screening [facility] Start: 1987 LIPID SCREEN LIPID SCREEN [facility] Start: 1971 SHINGRIX VACCINE (1 of 2) SHINGRIX VACCINE (1 of 2) [facility] Start: 1971 Urine microalbumin profile [facility] gilda Start: 1970 Annual PCP Team Chronic Disease Visit Annual PCP Team Chronic Disease Visit [facility] Start: 1970 Anxiety Screening Anxiety Screening [facility] Start: 1970 BP Controlled (<130/80) BP Controlled (<130/80) [facility] Start: 1970 Depression Screening Depression Screening [facility] Start: 1970 HEPATITIS C SCREENING HEPATITIS C SCREENING [facility] Start: 1970 Hepatitis C screening Hepatitis C Screening [facility] Start: 1964 COVID-19 VACCINE (1) COVID-19 VACCINE (1) [facility] Start: 1958 PNEUMOCOCCAL: 65+ (1 - PCV) PNEUMOCOCCAL: 65+ (1 - PCV) [facility] Start: 1957 Covid-19 Vaccine (#1) Covid-19 Vaccine (#1) [facility] Start: 1952 COVID-19 VACCINE (#1) COVID-19 VACCINE (#1) [facility] Start: 1952 ABDOMINAL AORTIC ANEURYSM SCREENING ABDOMINAL AORTIC ANEURYSM SCREENING [facility] Start: 1952 Abdominal aortic aneurysm screening Abdominal Aortic Aneurysm Screening [facility] Start: 1952 Screening for malignant neoplasm of colon [facility] End: 10-01-2025 CORNEAL TOPOGRAPHY ATLAS OU (BOTH EYES) CORNEAL TOPOGRAPHY ATLAS OU (BOTH EYES) OPHT Imaging Routine Combined forms of age-related cataract of left eye Combined forms of age-related cataract of right eye 1 Occurrences starting 04/09/2024 until 10/01/2025 [facility] Comment on above: 1 Occurrences starting 04/09/2024 until 10/01/2025 End: 10-01-2025 CORNEAL TOPOGRAPHY PENTACAM OU (BOTH EYES) CORNEAL TOPOGRAPHY PENTACAM OU (BOTH EYES) OPHT Imaging Routine Combined forms of age-related cataract of left eye Combined forms of age-related cataract of right eye 1 Occurrences starting 04/09/2024 until 10/01/2025 [facility] Comment on above: 1 Occurrences starting 04/09/2024 until 10/01/2025 End: 10-17-2024 MR Hip - left WO and W contrast IV MRI HIP WO/W IVCON LEFT Radiology Routine Pain of left hip 1 Occurrences starting 09/18/2023 until 10/17/2024 [facility] Work Phone: Comment on above: 1 Occurrences starting 09/18/2023 until 10/17/2024 End: 12-16-2022 Mri orbit face & neck w/o & w/contrast matrl MRI ORBIT WO/W IVCON Radiology Routine Malignant neoplasm of left orbit (HCC) 1 Occurrences starting 11/16/2021 until 12/16/2022 [facility] Work Phone: Comment on above: 1 Occurrences starting 11/16/2021 until 12/16/2022 End: 06-15-2023 Mri orbit face & neck w/o & w/contrast matrl MRI ORBIT WO/W IVCON Radiology Routine Malignant neoplasm of left orbit (HCC) 1 Occurrences starting 05/16/2022 until 06/15/2023 [facility] Work Phone: Comment on above: 1 Occurrences starting 05/16/2022 until 06/15/2023 End: 12-21-2023 Mri orbit face & neck w/o & w/contrast matrl MRI ORBIT WO/W IVCON Radiology Routine Malignant neoplasm of left orbit (HCC) 1 Occurrences starting 11/21/2022 until 12/21/2023 [facility] Work Phone: Comment on above: 1 Occurrences starting 11/21/2022 until 12/21/2023 End: 10-04-2024 NM PET/CT SKULL-THIGH SUBSEQUENT NM PET/CT SKULL-THIGH SUBSEQUENT Radiology Routine 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) 1 Occurrences starting 09/05/2023 until 10/04/2024 [facility] Work Phone: Comment on above: 1 Occurrences starting 09/05/2023 until 10/04/2024 End: 10-01-2025 OCT MACULA CIRRUS OU (BOTH EYES) OCT MACULA CIRRUS OU (BOTH EYES) OPHT Imaging Routine Combined forms of age-related cataract of left eye Combined forms of age-related cataract of right eye 1 Occurrences starting 04/09/2024 until 10/01/2025 [facility] Work Phone: Comment on above: 1 Occurrences starting 04/09/2024 until 10/01/2025 Oph bmtry prtl coher intrfrmtry io lens pwr patrick OPHTHALMIC BIOMETRY BY PARTIAL COHERENCE INTERFEROMETRY W/INTRAOCULAR LENS POWER CALCULATION Combined forms of age-related cataract of left eye [facility] Patient Education Know your Meds [facility] Work Phone: Patient referral [facility] Work Phone: End: 06-01-2023 Radiologic examination eye detect foreign body XR EYE FOREIGN BODY 2V Radiology Routine Malignant neoplasm of left orbit (HCC) 1 Occurrences starting 05/03/2022 until 06/01/2023 [facility] Work Phone: Comment on above: 1 Occurrences starting 05/03/2022 until 06/01/2023 Xcapsl ctrc rmvl ins j io lens prosth w/o ecp PHACOEMULSIFICATION CATARACT IMPLANT INTRAOCULAR LENS W/O ENDOSCOPIC CYCLOPHOTOCOAGULATION Combined forms of age-related cataract of left eye [facility] XR Hip - left 3 Views XR hip lef t 2 or 3 views Imaging Routine Presence of left artificial hip joint 05/27/2024 8:13 AM EDT [facility] Work Phone: [facility] Immunizations Immunization Date Immunization Notes Care Provider Fa cility 07-15-2017 pneumococcal polysaccharide vaccine, 23 valent [facility] NE[facility]: Highlighted row has not occurred!11-14-2023 influenza virus vaccine, unspecified formulation ROSSY CHO [facility] NEGATED: Highlighted row has not occurred!07-19-2020 influenza virus vaccine, unspecified formulation Althea Rodriguez Jr. [facility] NEGATED: Highlighted row has not occurred!07-16-2019 influenza virus vaccine, live, attenuated, for intranasal use Althea Rodriguez . [facility] Payers Date Payer Category Payer Self-pay [id number] 2023 Unknown [id number] 2021 Private Health Insurance [facility] AARP SUPPLEMENT [id number] 2021-Present [phone] [address] [place] [address] Indemnity [id number]. [id number] 2021 Private Health Insurance [id number] .[id number]. [id number] 2017 Unknown [id number]. 1.13.693.2. 7.3.016412.315 2017 Medicare [id number] 1.2.840.627289.1.13.159.2. 7.3.110926.315 2017 Medicare [id number]. 1.13.159.2. 7.3.545753.315 1959 Medicare [id number] 1959 Unknown [id number] 1952 Unknown [id number] 2.16.840.1.641057.3.579.2. 593 1952 Unknown [id number] 2.16.840.1.955886.3.579.2. 593 1952 Unknown [id number] 2.16.840.1.703001.3.579.2. 593 1952 Unknown [id number] 2.16.840.1.490600.3.579.2. 593 1952 Unknown [id number] 2.16.840.1.597097.3.579.2. 593 1952 Unknown [id number] 2.16.840.1.109342.3.579.2. 1259 1952 Unknown [id number] 2.16.840.1.124982.3.579.2. 1259 1952 Unknown [id number] 2.16.840.1.748528.3.579.2. 1259 1952 Unknown [id number] 2.16.840.1.914306.3.579.2. 1259 1952 Unknown [id number] 2.16.840.1.348325.3.579.2. 1259 1952 Unknown [id number] 2.16.840.1.916344.3.579.2. 1259 1952 Unknown [id number] 2.16.840.1.274859.3.579.2. 1259 1952 Unknown [id number] 2.16.840.1.158484.3.579.2. 1259 1952 Unknown [id number] 2.16.840.1.556983.3.579.2. 1259 1952 Unknown [id number] 2.16.840.1.139866.3.579.2. 1259 1952 Unknown [id number] 2.16.840.1.096016.3.579.2. 1259 1952 Unknown [id number] 2.16.840.1.946165.3.579.2. 125 1952 Unknown [id number] 2.16.840.1.746029.3.579.2. 1259 1952 Unknown [id number] 2.16.840.1.047286.3.579.2. 125 1952 Unknown [id number] 2.16.840.1.855758.3.579.2. 1259 1952 Unknown [id number] 2.16.840.1.146892.3.579.2. 72 1952 Unknown [id number] 2.16.840.1.990920.3.579.2. 727 1952 Unknown [id number] 2.16.840.1.448365.3.579.2. 727 1952 Unknown [id number] 2.16.840.1.535375.3.579.2. 727 1952 Unknown [id number] 2.16.840.1.096157.3.579.2. 727 1952 Unknown [id number] 2.16.840.1.232135.3.579.2. 727 Medicare [id number] Unknown [id number] 2.16.840.1.093764.3.579.2. 531 Unknown [id number] 2.16.840.1.263391.3.579.2. 531 Unknown [id number] 2.16.840.1.052313.3.579.2. 531 Unknown [id number] 2.16.840.1.376804.3.579.2. 531 Unknown [id number] 2.16.840.1.109989.3.579.2. 531 Unknown [id number] 2.16.840.1.395322.3.579.2. 531 Unknown [id number] 2.16.840.1.443130.3.579.2. 531 Unknown [id number] 2.16.840.1.616210.3.579.2. 531 Unknown [id number] 2.16.840.1.767886.3.579.2. 531 Social History Date Type Detail Facility Start: 12-29-2021 End: 01-23-2024 Tobacco smoking status NHIS Ex-smoker [facility] Comment on above: pt quit smoking in 1 985 pt quit smoking in 985 Start: 08-05-1964 End: 09-10-1984 History of tobacco use Current smoker [facility] Start: 08-05-1964 End: 09-10-1984 History of tobacco use Cigarette Smoker [facility] Start: 03-02-2021 End: 07-11-2021 Alcohol intake Not Asked [facility] Start: 1950 Sex Assigned At Not on file C [facility] Start: 02-13-2021 End: 05-16-2022 Exposure to SARS-CoV-2 (event) Not sure [facility] Start: 11-16-2021 End: 01-04-2025 Sex Assigned At Male [facility] Start: 01-08-2018 End: 01-04-2025 Cigarettes smoked current (pack per day) - Reported 1 [facility] Start: 01-08-2018 End: 01-23-2024 Tobacco use and exposure Smokeless tobacco non-user [facility] Tobacco quit 1985 Tobacc o Use:. Cigarettes [facility] Comment on above: pt quit smoking in 1 985 Tobacco [facility] status [facility] Start: 1950 Sex Assigned At Male F [facility] Adult Depression Screening Assessment 0 [facility] Comment on above: pt quit smoking in [...] or less [facility] How many standard dr inks containing alcohol do you have on a [...] Only a little [facility] (I/We) worried shandra er (my/our) food would run out before (I/we) got money to buy more. Never true [facility] Start: 01-03-2023 Alcohol Comment Occasionally [facility] Start: 05-05-2024 End: 01-05-2025 Alcoholic beverage intake Ex-drinker (finding) [facility] Do you belong to any clubs or organizations such as religious groups, unions, fraternal or athletic groups, or school groups? Yes [facility] How often do you hav e 6 or more drinks on 1 occasion? Never [facility] Do you feel stress - tense, restless, nervous, or anxious, or unable to sleep at night because your mind is troubled all the time - these days [OSQ] Not at all [facility] Start: 09-30-2023 Alcohol Comment Occasionally; caffeine intake : none [facility] How often do you nee d to have someone help you when you read instructions, pamphlets, or other written material from your doctor or pharmacy [SILS] Rarely [facility] Start: 03-14-2017 Sex Male (finding) [facility] Medical Equipment Procedure Code Equipment Code Equipment Origin al Text Equipment Identifier Dates HIP TOTAL ROBOT ARTHROPLASTY Pocos DO, Christian Carmona 11/26/23 Unknown Hip L FDA Start: 11-26-2023 HIP TOTAL ROBOT ARTHROPLASTY Pocos DO, Christian Carmona 11/26/23 Unknown Hip L FDA Start: 11-26-2023 HIP TOTAL ROBOT ARTHROPLASTY Pocos DO, Christian Carmona 11/26/23 Unknown Hip L FDA Start: 11-26-2023 HIP TOTAL ROBOT ARTHROPLASTY Pocos DO, Christian Carmona 11/26/23 Unknown Hip L FDA Start: 11-26-2023 HIP TOTAL ROBOT ARTHROPLASTY Pocos DO, Christian Carmona 11/26/23 Unknown Hip L FDA Start: 11-26-2023 HIP TOTAL ROBOT ARTHROPLASTY Pocos DO, Christian Carmona 11/26/23 Unknown Hip L FDA Start: 11-26-2023 HIP TOTAL ROBOT ARTHROPLASTY Pocos DO, Christian Carmona 11/26/23 Unknown Hip L FDA Start: 11-26-2023 HIP TOTAL ROBOT ARTHROPLASTY Pocos DO, Christian Carmona 11/26/23 Unknown Hip L FDA Start: 11-26-2023 HIP TOTAL ROBOT ARTHROPLASTY Pocos DO, Christian Carmona 11/26/23 Unknown Hip L FDA Start: 11-26-2023 HIP TOTAL ROBOT ARTHROPLASTY Pocos DO, Christian Carmona 11/26/23 Unknown Hip L FDA Start: 11-26-2023 HIP TOTAL ROBOT ARTHROPLASTY Pocos DO, Christian Carmona 11/26/23 Unknown Hip L FDA Start: 11-26-2023 HIP TOTAL ROBOT ARTHROPLASTY Pocos DO, Christian Carmona 11/26/23 Unknown Hip L FDA Start: 11-26-2023 HIP TOTAL ROBOT ARTHROPLASTY Pocos DO, Christian Carmona 11/26/23 Unknown Hip L FDA Start: 11-26-2023 HIP TOTAL ROBOT ARTHROPLASTY Pocos DO, Christian Carmona 11/26/23 Unknown Hip L FDA Start: 11-26-2023 HIP TOTAL ROBOT ARTHROPLASTY Pocos DO, Christian Carmona 11/26/23 Unknown Hip L FDA Start: 11-26-2023 HIP TOTAL ROBOT ARTHROPLASTY Pocos DO, Christian Carmona 11/26/23 Unknown Hip L FDA Start: 11-26-2023 HIP TOTAL ROBOT ARTHROPLASTY Pocos DO, Christian Carmona 11/26/23 Unknown Hip L FDA Start: 11-26-2023 HIP TOTAL ROBOT ARTHROPLASTY Pocos DO, Christian Carmona 11/26/23 Unknown Hip L FDA Start: 11-26-2023 HIP TOTAL ROBOT ARTHROPLASTY Pocos DO, Christian Carmona 11/26/23 Unknown Hip L FDA Start: 11-26-2023 HIP TOTAL ROBOT ARTHROPLASTY Pocos DO, Christian Carmona 11/26/23 Unknown Hip L FDA Start: 11-26-2023 HIP TOTAL ROBOT ARTHROPLASTY Pocos DO, Christian Carmona 11/26/23 Unknown Hip L FDA Start: 11-26-2023 HIP TOTAL ROBOT ARTHROPLASTY Pocos DO, Christian Carmona 11/26/23 Unknown Hip L FDA Start: 11-26-2023 HIP TOTAL ROBOT ARTHROPLASTY Pocos DO, Christian Carmona 11/26/23 Unknown Hip L FDA Start: 11-26-2023 HIP TOTAL ROBOT ARTHROPLASTY Pocos DO, Christian Carmona 11/26/23 Unknown Hip L FDA Start: 11-26-2023 HIP TOTAL ROBOT ARTHROPLASTY Pocos DO, Christian Carmona 11/26/23 Unknown Hip L FDA Start: 11-26-2023 [id number] [facility] - [id number] Start: 05-20-2024 HIP TOTAL ROBOT ARTHROPLASTY Pocos DO, Christian Carmona 11/26/23 Unknown Hip L FDA Start: 11-26-2023 HIP TOTAL ROBOT ARTHROPLASTY Pocos DO, Christian Carmona 11/26/23 Unknown Hip L FDA Start: 11-26-2023 HIP TOTAL ROBOT ARTHROPLASTY Pocos DO, Christian Carmona 11/26/23 Unknown Hip L FDA Start: 11-26-2023 HIP TOTAL ROBOT ARTHROPLASTY Pocos DO, Christian Carmona 11/26/23 Unknown Hip L FDA Start: 11-26-2023 HIP TOTAL ROBOT ARTHROPLASTY Pocos DO, Christian Carmona 11/26/23 Unknown Hip L FDA Start: 11-26-2023 HIP TOTAL ROBOT ARTHROPLASTY Pocos DO, Christian Carmona 11/26/23 Unknown Hip L FDA Start: 11-26-2023 HIP TOTAL ROBOT ARTHROPLASTY Pocos DO, Christian Carmona 11/26/23 Unknown Hip L FDA Start: 11-26-2023 HIP TOTAL ROBOT ARTHROPLASTY Pocos DO, Christian Carmona 11/26/23 Unknown Hip L FDA Start: 11-26-2023 HIP TOTAL ROBOT ARTHROPLASTY Pocos DO, Christian Carmona 11/26/23 Unknown Hip L FDA Start: 11-26-2023 HIP TOTAL ROBOT ARTHROPLASTY Pocos DO, Christian Carmona 11/26/23 Unknown Hip L FDA Start: 11-26-2023 HIP TOTAL ROBOT ARTHROPLASTY Pocos DO, Christian Carmona 11/26/23 Unknown Hip L FDA Start: 11-26-2023 HIP TOTAL ROBOT ARTHROPLASTY Pocos DOChristian 11/26/23 Unknown Hip L FDA Start: 11-26-2023 HIP TOTAL ROBOT ARTHROPLASTY Pocos DO, Christian Carmona 11/26/23 Unknown Hip L FDA Start: 11-26-2023 HIP TOTAL ROBOT ARTHROPLASTY Pocos DO, Christian Carmona 11/26/23 Unknown Hip L FDA Start: 11-26-2023 HIP TOTAL ROBOT ARTHROPLASTY Pocos DO, Christian Carmona 11/26/23 Unknown Hip L FDA Start: 11-26-2023 Goals Date Patient Goal Desired Activity /State Functional Status Date Assessment Result Facility 06-30-2024 Functional Status N/A [facility] 03-03-2024 Functional Status N/A [facility] 01-17-2024 Functional Status N/A [facility] 11-14-2023 Functional Status N/A [facility] 11-11-2023 Functional Status No [facility] 06-03-2023 Functional Status N/A [facility] 04-29-2023 Functional Status N/A [facility] 04-24-2023 Functional Status N/A [facility] 03-12-2023 Functional Status N/A [facility] 08-28-2022 Functional Status N/A [facility] 02-02-2022 Functional Status N/A [facility] 01-16-2022 Functional Status N/A [facility] Clinical Notes 03-15-2021 to 03-15-2025 Telephone Encounter - Janice Galvan - 02/15/2025 10:39 AM EDTTelephone Encounter - Janice Galvan - 02/15/2025 10:39 AM Reginaldo Arias MD - 01/05/2025 11:00 AM EDTPatient InstructionsLaboratory Note Date & Type Note Facility 03-15-2025 Hospital Discharge instructions Patient Education 03/15/2025 08:26:07 Benign Prostatic Hyperplasia Benign Prostatic Hyperplasia Benign prostatic hyperplasia (BPH) is an enlarged prostate gland that is caused by the normal aging process. The prostate may get bigger as a man gets older. The condition is not caused by cancer. The prostate is a walnut-sized gland that is involved in the production of semen. It is located in front of the rectum and below the bladder. The bladder stores urine. The urethra carries stored urine out of the body. An enlarged prostate can press on the urethra. This can make it harder to pass urine. The buildup of urine in the bladder can cause infection. Back pressure and infection may progress to bladder damage and kidney (renal) failure. What are the causes? This condition is part of the normal aging process. However, not all men develop problems from this condition. If the prostate enlarges away from the urethra, urine flow will not be blocked. If it enlarges toward the urethra and compresses it, there will be problems passing urine. What increases the risk? This condition is more likely to develop in men older than 50 years. What are the signs or symptoms? Symptoms of this condition include: Getting up often during the night to urinate. Needing to urinate frequently during the day. Difficulty starting urine flow. Decrease in size and strength of your urine stream. Leaking (dribbling) after urinating. Inability to pass urine. This needs immediate treatment. Inability to completely empty your bladder. Pain when you pass urine. This is more common if there is also an infection. Urinary tract infection (UTI). How is this diagnosed? This condition is diagnosed based on your medical history, a physical exam, and your symptoms. Tests will also be done, such as: A post-void bladder scan. This measures any amount of urine that may remain in your bladder after you finish urinating. A digital rectal exam. In a rectal exam, your health care provider checks your prostate by putting a lubricated, gloved finger into your rectum to feel the back of your prostate gland. This exam detects the size of your gland and any abnormal lumps or growths. An exam of your urine (urinalysis). A prostate specific antigen (PSA) screening. This is a blood test used to screen for prostate cancer. An ultrasound. This test uses sound waves to electronically produce a picture of your prostate gland. Your health care provider may refer you to a specialist in kidney and prostate diseases (urologist). How is this treated? Once symptoms begin, your health care provider will monitor your condition (active surveillance or watchful waiting). Treatment for this condition will depend on the severity of your condition. Treatment may include: Observation and yearly exams. This may be the only treatment needed if your condition and symptoms are mild. Medicines to relieve your symptoms, including: ?Medicines to shrink the prostate. ?Medicines to relax the muscle of the prostate. Surgery in severe cases. Surgery may include: ?Prostatectomy. In this procedure, the prostate tissue is removed completely through an open incision or with a laparoscope or robotics. ?Transurethral resection of the prostate (TURP). In this procedure, a tool is inserted through the opening at the tip of the penis (urethra). It is used to cut away tissue of the inner core of the prostate. The pieces are removed through the same opening of the penis. This removes the blockage. ?Transurethral incision (TUIP). In this procedure, small cuts are made in the prostate. This lessens the prostate's pressure on the urethra. ?Transurethral microwave thermotherapy (TUMT). This procedure uses microwaves to create heat. The heat destroys and removes a small amount of prostate tissue. ?Transurethral needle ablation (TUNA). This procedure uses radio frequencies to destroy and remove a small amount of prostate tissue. ?Interstitial laser coagulation (ILC). This procedure uses a laser to destroy and remove a small amount of prostate tissue. ?Transurethral electrovaporization (TUVP). This procedure uses electrodes to destroy and remove a small amount of prostate tissue. ?Prostatic urethral lift. This procedure inserts an implant to push the lobes of the prostate away from the urethra. Follow these instructions at home: Take [id number] and prescription medicines only as told by your health care provider. Monitor your symptoms for any changes. Contact your health care provider with any changes. Avoid drinking large amounts of liquid before going to bed or out in public. Avoid or reduce how much caffeine or alcohol you drink. Give yourself time when you urinate. Keep all follow-up visits. This is important. Contact a health care provider if: You have unexplained back pain. Your symptoms do not get better with treatment. You develop side effects from the medicine you are taking. Your urine becomes very dark or has a bad smell. Your lower abdomen becomes distended and you have trouble passing urine. Get help right away if: You have a fever or chills. You suddenly cannot urinate. You feel light-headed or very dizzy, or you faint. There are large amounts of blood or clots in your urine. Your urinary problems become hard to manage. You develop moderate to severe low back or flank pain. The flank is the side of your body between the ribs and the hip. These symptoms may be an emergency. Get help right away. Call 911. Do not wait to see if the symptoms will go away. Do not drive yourself to the hospital. Summary Benign prostatic hyperplasia (BPH) is an enlarged prostate that is caused by the normal aging process. It is not caused by cancer. An enlarged prostate can press on the urethra. This can make it hard to pass urine. This condition is more likely to develop in men older than 50 years. Get help right away if you suddenly cannot urinate. This information is not intended to replace advice given to you by your health care provider. Make sure you discuss any questions you have with your health care provider. Document Revised: 02/07/2022 Document Reviewed: 02/07/2022 [employer] Patient Education 2023 [employer]. Follow Up Care 06/30/2024 14:28:00 With:APURVA CALIX, Domenico Haywood, URL Address: [address] [place], [place] [address]- When: Unknown [facility] 03-15-2025 Note Patient Education Urology Benign Prostatic Hyperplasia Benign prostatic hyperplasia (BPH) is an enlarged prostate gland that is caused by the normal aging process. The prostate may get bigger as a man gets older. The condition is not caused by cancer. The prostate is a walnut-sized gland that is involved in the production of semen. It is located in front of the rectum and below the bladder. The bladder stores urine. The urethra carries stored urine out of the body. An enlarged prostate can press on the urethra. This can make it harder to pass urine. The buildup of urine in the bladder can cause infection. Back pressure and infection may progress to bladder damage and kidney (renal) failure. What are the causes? This condition is part of the normal aging process. However, not all men develop problems from this condition. If the prostate enlarges away from the urethra, urine flow will not be blocked. If it enlarges toward the urethra and compresses it, there will be problems passing urine. What increases the risk? This condition is more likely to develop in men older than 50 years. What are the signs or symptoms? Symptoms of this condition include: ??? Getting up often during the night to urinate. ??? Needing to urinate frequently during the day. ??? Difficulty starting urine flow. ??? Decrease in size and strength of your urine stream. ??? Leaking (dribbling) after urinating. ??? Inability to pass urine. This needs immediate treatment. ??? Inability to completely empty your bladder. ??? Pain when you pass urine. This is more common if there is also an infection. ??? Urinary tract infection (UTI). How is this diagnosed? This condition is diagnosed based on your medical history, a physical exam, and your symptoms. Tests will also be done, such as: ??? A post-void bladder scan. This measures any amount of urine that may remain in your bladder after you finish urinating. ??? A digital rectal exam. In a rectal exam, your health care provider checks your prostate by putting a lubricated, gloved finger into your rectum to feel the back of your prostate gland. This exam detects the size of your gland and any abnormal lumps or growths. ??? An exam of your urine (urinalysis). ??? A prostate specific antigen (PSA) screening. This is a blood test used to screen for prostate cancer. ??? An ultrasound. This test uses sound waves to electronically produce a picture of your prostate gland. Your health care provider may refer you to a specialist in kidney and prostate diseases (urologist). How is this treated? Once symptoms begin, your health care provider will monitor your condition (active surveillance or watchful waiting). Treatment for this condition will depend on the severity of your condition. Treatment may include: ??? Observation and yearly exams. This may be the only treatment needed if your condition and symptoms are mild. ??? Medicines to relieve your symptoms, including: ? Medicines to shrink the prostate. ? Medicines to relax the muscle of the prostate. ??? Surgery in severe cases. Surgery may include: ? Prostatectomy. In this procedure, the prostate tissue is removed completely through an open incision or with a laparoscope or robotics. ? Transurethral resection of the prostate (TURP). In this procedure, a tool is inserted through the opening at the tip of the penis (urethra). It is used to cut away tissue of the inner core of the prostate. The pieces are removed through the same opening of the penis. This removes the blockage. ? Transurethral incision (TUIP). In this procedure, small cuts are made in the prostate. This lessens the prostate's pressure on the urethra. ? Transurethral microwave thermotherapy (TUMT). This procedure uses microwaves to create heat. The heat destroys and removes a small amount of prostate tissue. ? Transurethral needle ablation (TUNA). This procedure uses radio frequencies to destroy and remove a small amount of prostate tissue. ? Interstitial laser coagulation (ILC). This procedure uses a laser to destroy and remove a small amount of prostate tissue. ? Transurethral electrovaporization (TUVP). This procedure uses electrodes to destroy and remove a small amount of prostate tissue. ? Prostatic urethral lift. This procedure inserts an implant to push the lobes of the prostate away from the urethra. Follow these instructions at home: ??? Take znld-ldu-tommcbj and prescription medicines only as told by your health care provider. ??? Monitor your symptoms for any changes. Contact your health care provider with any changes. ??? Avoid drinking large amounts of liquid before going to bed or out in public. ??? Avoid or reduce how much caffeine or alcohol you drink. ??? Give yourself time when you urinate. ??? Keep all follow-up visits. This is important. Contact a health care provider if: ??? You have unexplained back pain. ??? Your symptoms do not get (more content not included)... [facility] 02-15-2025 Telephone encounter Note Jose left a message asking for a refill on his nebivolol (Bystolic) 5 MG [facility] 02-15-2025 Miscellaneous Notes Jose left a message asking for a refill on his nebivolol (Bystolic) 5 MG documented in this encounter [facility] 02-03-2025 Hospital Discharge instructions Patient Education 02/03/2025 08:56:24 Cystoscopy Cystoscopy Cystoscopy is a procedure that [...] including vitamins, herbs, eye drops, creams, and fmhj-src-tmrgwvn medicines. Any problems you or family members [...] provider tells you to take them. Taking bdda-lao-qxvaetm medicines, vitamins, herbs, and supplements. Tests You [...] Follow these instructions at home: Medicines Take hfxb-pay-fgonywg and prescription medicines only as told by [...] provider. Document Revised: 04/04/2022 Document Reviewed: 03/03/2021 [employer] Patient Education 2023 [employer]. Follow Up Care 02/02/2025 14:22:26 With:APURVA CALIX, Domenico Haywood, URL Address: [address] [facility] [address] [place] [id number] When: Unknown [facility] 02-03-2025 Note Patient Education Urology Cystoscopy Cystoscopy is a procedure that [...] Cystoscopy may be recommended if you have: ??? Urinary tract infections that keep coming back. ??? Blood in the urine (hematuria). ??? An inability to control when you urinate (urinary incontinence) or an overactive bladder. ??? Unusual cells found in a urine sample. ??? A blockage in the urethra, such as a urinary stone. ??? Painful urination. ??? An abnormality in the bladder found during an intravenous pyelogram (IVP) or CT scan. Cystoscopy may also be done to remove a sample of tissue to be examined under a microscope (biopsy). Tell a health care provider about: ??? Any allergies you have. ??? All medicines you are taking, including vitamins, herbs, eye drops, creams, and tasg-ztn-zowiobm medicines. ??? Any problems you or family members have had with anesthetic medicines. ??? Any blood disorders you have. ??? Any surgeries you have had. ??? Any medical conditions you have. ??? Whether you are or may be . What are the risks? Generally, this is a safe procedure. However, problems may occur, including: ??? Infection. ??? Bleeding. ??? Allergic reactions to medicines. ??? Damage to other structures or organs. What happens before the procedure? Medicines Ask your health care provider about: ??? Changing or stopping your regular medicines. This is especially important if you are taking diabetes medicines or blood thinners. ??? Taking medicines such as aspirin and ibuprofen. These medicines can thin your blood. Do not take these medicines unless your health care provider tells you to take them. ??? Taking sobc-ylr-wwonqym medicines, vitamins, herbs, and supplements. Tests You may have an exam or testing, such as: ??? X-rays of the bladder, urethra, or kidneys. ??? CT scan of the abdomen or pelvis. ??? Urine tests to check for signs of infection. General instructions ??? Follow instructions from your health care provider about eating or drinking restrictions. ??? Ask your health care provider what steps will be taken to help prevent infection. These steps may include: ? Washing skin with a germ-killing soap. ? Taking antibiotic medicine. ??? Plan to have a responsible adult take you home from the hospital or clinic. What happens during the procedure? You will be given one or more of the following: ? A medicine to help you relax (sedative). ? A medicine to numb the area (local anesthetic). ??? The area around the opening of your urethra will be cleaned. ??? The cystoscope will be passed through your urethra into your bladder. ??? Germ-free (sterile) fluid will flow through the cystoscope to fill your bladder. The fluid will stretch your bladder so that your health care provider can clearly examine your bladder leggett. ??? Your doctor will look at the urethra and bladder. Your doctor may take a biopsy or remove stones. ??? The cystoscope will be removed, and your bladder will be emptied. The procedure may vary among health care providers and hospitals. What can I expect after the procedure? After the procedure, it is common to have: ??? Some soreness or pain in your abdomen and urethra. ??? Urinary symptoms. These include: ? Mild pain or burning when you urinate. Pain should stop within a few minutes after you urinate. This may last for up to 1 week. ? A small amount of blood in your urine for several days. ? Feeling like you need to urinate but producing only a small amount of urine. Follow these instructions at home: Medicines ??? Take aezt-jao-ewwgqxm and prescription medicines only as told by your health care provider. ??? If you were prescribed an antibiotic medicine, take it as told by your health care provider. Do not stop taking the antibiotic even if you start to feel better. General instructions ??? Return to your normal activities as told by your health care provider. Ask your health care provider what activities are safe for you. ??? If you were given a sedative during the procedure, it can affect you for several hours. Do not drive or operate machinery until your health care provider says that it is safe. ??? Watch for any blood in your urine. If the amount of blood in your urine increases, call your health care provider. ??? Follow instructions from your health care provider about eating or drinking restrictions. ??? If a tissue sample was removed for testing (biopsy) during your (more content not included)... [facility] 01-05-2025 History of Present illness Narrative Images from the original note were not included. Padmini Lloyd is a 74 y.o. male presents with chief complaint of Annual Exam HPI: History of Present Illness I have reviewed and reconciled the history and medication list with the patient today. CURRENT PCP/CARE TEAM: Patient Care Team: Jarred Arias MD as PCP - General (Family Medicine) Jarred Arias MD as PCP - ACO Reach Kellie Odom LPN as Licensed Practical Nurse (Family Medicine) FELICIA Ortiz DO as Referring Physician (Orthopaedic Surgery) Domenico Gipson MD as Referring Physician (Urology) Juan Cook DO as Referring Physician (Otolaryngology) Over the past 2 weeks, how often have you been bothered by any of the following problems? Little interest or pleasure in doing things: Not at all Feeling down, depressed, or hopeless: Not at all Patient Health Questionnaire-2 Score: 0 Burks Fall Risk History of Falling, Immediate or Within 3 Months: No Secondary Diagnosis: No Intravenous Therapy/Heparin Lock: No Mental Status: Oriented to own ability Health Risk Assessment Form Do you need help eating, bathing, using the toilet, dressing, or getting around your home?: No Can you prepare your own meals?: Yes Can you do your own housework without help?: Yes Can you shop for groceries or clothes without help?: Yes Do you exercise for about 20 minutes 3 or more days a week?: Yes How confident are you that you can control and manage most of your health problems?: Very confident Can you mange your money, credit cards and accounts, pay bills and taxes?: Yes Vision Screening: Yes, patient sees regular occupational therapist per diem/machine attendant Hearing Screening: Not done Cognitive Screening Self Assessment: No overt cognitive deficiency is apparent by direct observation Three Word Registration: Lauren Hutton, Finger Clock Drawing: Normal Clock - 2 Three Word Recall: 2/3 words correct - 2 Total Score (0-5 Points): 4 Pain Assessment Pain Score: 0 - No pain HISTORIES: PAST MEDICAL HISTORY: Past Medical History: Diagnosis Date Benign essential hypertension Benign localized hyperplasia of prostate with urinary obstruction and lower urinary tract symptoms Bilateral pulmonary embolism (HCC) BPH with urinary obstruction 05/15/2023 Cellulitis of right leg Chronic deep vein thrombosis (DVT) of lower extremity, unspecified laterality, unspecified vein ([facility]) Chronic kidney disease, stage III (moderate) ([facility]) Combined forms of age-related cataract of left eye 04/14/2024 Combined forms of age-related cataract of right eye 04/14/2024 COVID-19 08/2021 Pneumonia, [facility] Drusen of macula, left 04/14/2024 DVT (deep venous thrombosis) ([facility]) 05/15/2023 Enlarged prostate with lower urinary tract symptoms (LUTS) Erysipelas Erysipelas of lower extremity Esophageal reflux Family history of prostate cancer GERD (gastroesophageal reflux disease) History of being hospitalized 03/2017 kidneys, bladder and BP at [facility] (5 days) History of being hospitalized 04/2017 Blood Clot in Right Lower Calf History of being hospitalized 03/2020 Blood Clot in bilateral lungs, [facility] 4 days Lumbosacral plexopathy 11/02/2023 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 Microalbuminuria resolved 07/06/2019) Parathyroid adenoma 11/02/2023 Prostate CA ([facility]) seeds Stage 2 chronic kidney disease SURGICAL HISTORY: Past Surgical History: Procedure Laterality Date BLADDER STONE REMOVAL 05/20/2023 Dr Gipson, [facility] BLADDER SURGERY 02/13/2024 Cystoscopy and transurethral laser ablation, Dr Gipson [facility] CATARACT EXTRACTION Left COLONOSCOPY 2005 2012 CYSTOSCOPY 09/2020 cysto, oiu, stone removal from bladder, [facility] EYE SURGERY 01/2021 radiation on left eye lymphoma (planning 14 treatments) HIP ARTHROPLASTY Left 11/26/2023 DAP OTHER SURGICAL HISTORY 1987 Procedure:Surgical repair;Disease:left thumb with table saw laceration. OTHER SURGICAL HISTORY 11/28/2016 Prostate seed implanted OTHER SURGICAL HISTORY 03/14/2022 gall stone removal, Michael [facility] PARATHYROIDECTOMY 10/22/2023 Neck Exploration Excision Parathyroid Adenoma PROSTATE BIOPSY 09/07/2016 miguel angel score 6 SOCIAL HISTORY: Social History Tobacco Use Smoking status: Former Current packs/day: 0.00 Average packs/day: 0.5 packs/day for 20.0 years (10.0 ttl pk-yrs) Types: Cigarettes Start date: 08/05/1964 Quit date: 08/05/1984 Years since quittin.4 Smokeless tobacco: Never Vaping Use Vaping status: Never Used Substance Use Topics Alcohol use: Not Currently Alcohol/week: 2.0 standard drinks of alcohol Comment: Occasionally; caffeine intake : none Drug use: Never Depression: Not at risk (01/04/2025) PHQ-2 PHQ-2 Score: 0 FAMILY HISTORY: Family History Problem Relation Name Age of Onset Hypertension Mother Netta Lloyd Dementia Mother Netta Lloyd Other (CABG) Father Tu Lloyd Prostate cancer Father Tu Lloyd Colon cancer Father Tu Lloyd Stroke Father Tu Lloyd Cancer Father Tu Lloyd No Known Problems Brother No Known Problems Daughter No Known Problems Son MEDICATIONS: Current Outpatient Medications Medication Instructions cephalexin (Keflex) 500 MG capsule Take all 4 capsules one hour before the procedure. cholecalciferol (Vitamin D3) 25 MCG (1000 UT) tablet 1 tablet, Daily cyanocobalamin (Vitamin B-12) 500 MCG tablet 1 tablet, 2 times weekly losartan (COZAAR) 100 mg, Oral, Daily magnesium gluconate 250 mg, Daily Multiple Vitamins-Minerals (CARDIODAILY PO) 1 tablet, Daily Multiple Vitamins-Minerals (ONE DAILY 50 PLUS PO) 1 tablet, Daily nebivolol (BYSTOLIC) 5 mg, Oral, Daily potassium citrate CR (Urocit-K-10) 10 mEq ER tablet 20 mEq, 2 times daily warfarin (COUMADIN) 6 mg, Oral, Nightly zinc, chelated 25 mg, Daily ALLERGIES: Allergies Allergen Reactions Moxifloxacin Other Reaction(s): hives Quinolones Unknown Other Reaction(s): Hallucinating Sulfa Antibiotics Other Reaction(s): Hallucinating Sulfamethoxazole Other Reaction(s): Hallucinating Sulfamethoxazole-Trimethoprim Other Reaction(s): shut his kidneys down Trimethoprim Other Reaction(s): Hallucinating PHYSICAL EXAM: Visit Vitals BP 130/80 Pulse 65 Ht 6' Wt 244 lb 8 oz SpO2 99% BMI 33.16 kg/m Smoking Status Former BSA 2.37 m BP Readings from Last 3 Encounters: 01/05/25 130/80 07/20/24 134/82 01/27/24 (!) 148/100 Wt Readings from Last 3 Encounters: 01/05/25 244 lb 8 oz 11/25/24 242 lb 10/01/24 240 lb Physical Exam The patient is pleasant and in no acute distress The patient has good eye contact and clear speech Results ASCVD 10-Year Risk Score Current as of today 20.9% 0 to < 5%: Low Risk 5 to < 7.5%: Borderline Risk 7.5 to < 20%: Intermediate Risk 20 to 100%: High Risk Last Change: An Atherosclerotic Cardiovascular Disease (ASCVD) event is defined as myocardial infarction, CHD , or stroke. The ASCVD risk score (Amy DELCID, et al., 2019, 2020 [employer]) returns the percentage likelihood of a first time ASCVD event. Age: 74 Legal Sex: Male Non- : No Smokes Tobacco: No Has Diabetes Excluding Gestational Diabetes: No Systolic BP: 130 HDL: 73 mg/dL Total cholesterol: 195 mg/dL Is BP Treated: Yes ASSESSMENT AND PLAN: Assessment/Plan 1. Encounter for Medicare annual wellness exam (Primary) The patient is here for their Annual Medicare Wellness visit. Demographics were updated. Self-assessment was completed and reviewed. Past medical, family, and social history were updated. The medication list updated and reviewed by the doctor. A list of other current medical providers is established and updated. Time was spent discussing health maintenance issues, ordering testing as appropriate, and a schedule was reviewed regarding recommended screening. We discussed safety issues and fall risk. Depression screening was completed and addressed as appropriate. Fall screening was completed and addressed. Cognitive function was assessed by direct observation, cognitive screening as indicated, and assessment of ability to perform ADL's. The BMI and discussed. Major risk factors for chronic disease including family history were discussed. An after visit summary is made available to the patient 2. Advance directive in chart No changes to advanced directives 3. Encounter for screening for other disorder Clinically insignificant depression screening 4. Screening for alcohol problem Negative alcohol screening 5. Benign essential hypertension Chronic problem, borderline stability. Patient is self stopped the losartan as his pharmacy could not have the correct brand that he wanted. - Comprehensive metabolic panel; Future - Lipid panel; Future - Comprehensive metabolic panel - Lipid panel - nebivolol (Bystolic) 5 MG tablet; Take 1 tablet (5 mg) by mouth Daily Dispense: 30 tablet; Refill: 0 6. Hypertensive nephropathy - Comprehensive metabolic panel; Future - Comprehensive metabolic panel 7. Stage 3a chronic kidney disease (CMS-HCC) - Comprehensive metabolic panel; Future - Comprehensive metabolic panel 8. Screening for diabetes mellitus (DM) - Comprehensive metabolic panel; Future - Comprehensive metabolic panel 9. Screening for lipid disorders - Lipid panel; Future - Lipid panel 10. Malignant neoplasm of prostate (HCC) Chronic problem that is still under monitoring by Urology. 11. Cardiovascular event risk The patient has ASCVD risk factors, but does not currently have a cardiovascular disease diagnosis. A standardized, evidence-based ASCVD risk assessment, is generated during the office visit. Each section is reviewed individually with the patient and a discussion concerning any modifiable risk factors. This discussion lasted approximately 5-10 minutes documented in this encounter [facility] 12-14-2024 Telephone encounter Note Prescription sent [facility] 12-14-2024 Miscellaneous Notes Prescription sent Jose left a message requesting refills on warfarin (Coumadin) 6 MG and nebivolol (Bystolic) 5 MG . documented in this encounter [facility] 12-14-2024 Telephone encounter Note Jose left a message requesting refills on warfarin (Coumadin) 6 MG and nebivolol (Bystolic) 5 MG . [facility] 12-03-2024 Note Date of Procedure 12/03/2024 [place] Protocol Safety Checklist A moment of CARE was completed Sign In Patient/surrogate stated/verified patient name, date of , relevant allergies, intended procedure. Provider Confirms: Relevant labs, photos, and/or imaging studies have been reviewed: N/A. Intended patient and procedure match the source document(s) (e.g. consent, associated studies [imaging, pathology]). Consent obtained and matches the intended procedure. Correct side/site marked and visible: N/A. Medications required for procedure verified: N/A. Fire risk assessed and interventions discussed: N/A. Correct implant(s) confirmed including size and side: N/A. Sign Out All specimens are correctly labeled and sent: N/A. All instruments, equipment, possible retained foreign bodies accounted for. Post-procedure POC communicated to patient or surrogate: N/A. Post-procedure POC communicated to patient's multidisciplinary team: N/A. Anesthesia None. Pre Laser Meds 1-2 drops Tropicamide 1%. Laser Paramters Power: 1.5mJ. Total Spots: 37. Total Energy: 56 mJ. Post Laser Meds None. Post Laser IOP 16. Measured at: 2:23 PM. Home Going Prescription None. Notes No Intraocular lens pits No complications [facility] 12-03-2024 Note HNO ID: [id number] Author: KAYE KENT MD Service: ? Author Type: Physician Type: Progress Notes Filed: 12/03/2024 14:28 Note Text: ASSESSMENT/PLAN: Patient educated with patient and his on all findings: 1. After-cataract of left eye with vision obscured - ICD9: 366.53, ICD10: H26.492 (primary diagnosis) -Patient was educated on posterior capsular opacity following cataract surgery. The risks, benefits, alternatives, personnel, and possible complications related to yttrium aluminum garnet (YAG) capsulotomy were discussed with the patient. Explained that risks include but are not limited to: increase in intraocular pressure, retinal tears/detachment, dislocation of the intraocular lens, and/or need for further procedures. Retinal detachment warning symptoms were reviewed with patient and he expresses understanding of the need to call and come in if any retinal detachment symptoms occur. Discussed risk of recurrent Posterior capsular opacity with possible need for repeat Yag PC. Discussed the risk of refractive change with the need to update glasses after Yag PC. Patient expresses understanding and elects to proceed with yttrium aluminum garnet (YAG) capsulotomy left eye by Dr. Kent, which was completed today. 2. Pseudophakia of left eye - ICD9: V43.1, ICD10: Z96.1 PCIOL 05/2024 by WM; stable; update glasses as needed with Dr. Mujica. He currently wears OTC readers. 3. 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 4. Nuclear senile cataract of right eye - ICD9: 366.16, ICD10: H25.11 NVS, observe. 5. Ocular hypertension of right eye - ICD9: 365.04, ICD10: H40.051 Dr. Mujica following. Maggie Ocasio OD and Kaye Kent MD Copy of today's visit note was sent to Dr. Mujica Return to clinic with Dr. Mujica for refraction and for yearly DFEs, here when he wants cataract surgery for OD or sooner as needed Kaye Kent MD [facility] 12-03-2024 History of Present illness Narrative ASSESSMENT/PLAN: Patient educated with patient and his on all findings: 1. After-cataract of left eye with vision obscured - ICD9: 366.53, ICD10: H26.492 (primary diagnosis) -Patient was educated on posterior capsular opacity following cataract surgery. The risks, benefits, alternatives, personnel, and possible complications related to yttrium aluminum garnet (YAG) capsulotomy were discussed with the patient. Explained that risks include but are not limited to: increase in intraocular pressure, retinal tears/detachment, dislocation of the intraocular lens, and/or need for further procedures. Retinal detachment warning symptoms were reviewed with patient and he expresses understanding of the need to call and come in if any retinal detachment symptoms occur. Discussed risk of recurrent Posterior capsular opacity with possible need for repeat Yag PC. Discussed the risk of refractive change with the need to update glasses after Yag PC. Patient expresses understanding and elects to proceed with yttrium aluminum garnet (YAG) capsulotomy left eye by Dr. Kent, which was completed today. 2. Pseudophakia of left eye - ICD9: V43.1, ICD10: Z96.1 PCIOL 05/2024 by WM; stable; update glasses as needed with Dr. Mujica. He currently wears OTC readers. 3. 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 4. Nuclear senile cataract of right eye - ICD9: 366.16, ICD10: H25.11 NVS, observe. 5. Ocular hypertension of right eye - ICD9: 365.04, ICD10: H40.051 Dr. Mujica following. Maggie Ocasio OD and Kaye Kent MD Copy of today's visit note was sent to Dr. Mujica Return to clinic with Dr. Mujica for refraction and for yearly DFEs, here when he wants cataract surgery for OD or sooner as needed Kaye Kent MD documented in this encounter [facility] 11-25-2024 History of Present illness Narrative Post op PRATEEK annual visit: The patient is seen and evaluated for annual total hip arthroplasty visit. Pain is appropriately controlled. Denies chest pain or shortness of breath or palpitations. Continues to be consistent and diligent with home exercise program as well as physical therapy modalities. Happy with the procedure. Physical Exam: The total hip incision is clean, dry and intact. Has a stable arc of motion without mechanical symptoms. No instability of the prosthesis. No rash, infection or DVT. The calves are supple bilaterally. Gait is unassisted. Image Results: Xrays taken in the office today saved to the permanent record, 3 views including AP pelvis and lateral of the operative hip, show stable position and alignment of the PRATEEK prosthesis. No sign of loosening, fracture or catastrophic wear. Limb lengths are appropriate. Assessment: S/P total hip arthroplasty-annual post-operative visit Treatment Plan: The nature of the findings were discussed at length. Continuance of regular exercise, weight management and fall precautions reviewed. Metal detectors are discussed. intermodal dispatcher antibiotic prophylaxis for dental or invasive work were reviewed. Numerous questions were answered. Follow-up in 2 years for repeat xray and exam, sooner if concerned. The patient is discharged in stable condition. documented in this encounter [facility] 08-26-2024 Telephone encounter Note error [facility] 08-26-2024 Miscellaneous Notes error documented in this encounter [facility] 07-20-2024 History of Present illness Narrative Images from the original note were not included. Patient ID: Padmini Lloyd is a 74 y.o. male who presents for: Hypertension Patient is here for follow-up of elevated blood pressure. He is not exercising and is adherent to a low-salt diet. Blood pressure is well controlled at home. Cardiac symptoms: none. Patient denies chest pain, dyspnea, and irregular heart beat. Cardiovascular risk factors: advanced age (older than 55 for men, 65 for women), hypertension, and male gender. Use of agents associated with hypertension: none. History of target organ damage: none. Started nebivolol on . Review of Systems Constitutional: Negative for activity change and fatigue. Respiratory: Negative for cough, shortness of breath and wheezing. Cardiovascular: Negative for chest pain, palpitations and leg swelling. Neurological: Negative for light-headedness and headaches. Objective The patient is pleasant and in no acute distress. The neck is supple and trachea is midline. No masses are appreciated. The heart is regular rate and rhythm without S3, S4. No murmur. The patient has normal respiratory pattern. The breath sounds are symmetrical without evidence of rhonchi or rales. No wheezing. The skin is warm and dry. The lower extremities have trace edema. The patient has good eye contact and speech is clear. Appropriate affect. Visit Vitals BP 134/82 Smoking Status Former Allergies Allergen Reactions Moxifloxacin Other Reaction(s): hives Quinolones Unknown Other Reaction(s): Hallucinating Sulfa Antibiotics Other Reaction(s): Hallucinating Sulfamethoxazole Other Reaction(s): Hallucinating Sulfamethoxazole-Trimethoprim Other Reaction(s): shut his kidneys down Trimethoprim Other Reaction(s): Hallucinating Current Outpatient Medications on File Prior to Visit Medication Sig Dispense Refill albuterol HFA 90 mcg/act inhaler Inhale 2 puffs every 4 (four) hours if needed for wheezing or shortness of breath 18 g 2 cephalexin (Keflex) 500 MG capsule Take all 4 capsules one hour before the procedure. 4 capsule 1 cholecalciferol (Vitamin D3) 25 MCG (1000 UT) tablet Take 1 tablet by mouth in the morning. cyanocobalamin (Vitamin B-12) 500 MCG tablet Take 1 tablet by mouth 2 (two) times a week. Twice a month ketorolac (Acular) 0.5 % ophthalmic solution Use one drop in operative eye as directed by Dr. Kent starting tomorrow. magnesium gluconate 250 MG tablet Take 250 mg by mouth Daily Multiple Vitamins-Minerals (ONE DAILY 50 PLUS PO) Take 1 tablet by mouth in the morning. potassium citrate CR (Urocit-K-10) 10 mEq ER tablet Take 20 mEq by mouth in the morning and 20 mEq before bedtime. prednisoLONE acetate (Pred-Forte) 1 % ophthalmic suspension Use one drop in operative eye as directed by Dr. Kent starting tomorrow. Spacer/Aero-Holding Chambers (BreatheRite Tanesha Spacer Adult) misc 2 puffs 4 (four) times a day as needed (sob and cough) 1 each 0 warfarin (Coumadin) 6 MG tablet TAKE 1 TABLET BY MOUTH IN THE EVENING 90 tablet 2 zinc, chelated 12.5 mg tablet split tablet Take 25 mg by mouth in the morning. No current facility-administered medications on file prior to visit. 1. Benign essential hypertension (CMS/HCC) (Primary) Chronic problem, stable, doing well. He has recently started nebivolol he had from previous prescription. While he is nervous about new medications as he is sensitive he seems to be tolerating this well. It is too early to decide if this will give him adequate blood pressure control. We have mutually agrees he will send some blood pressure readings in August and how he is feeling with this medication and we will make a decision at that point. - losartan (Cozaar) 100 MG tablet; Take 1 tablet (100 mg) by mouth Daily Dispense: 90 tablet; Refill: 2 2. Chronic deep vein thrombosis (DVT) of calf muscle vein of right lower extremity (CMS/HCC) Chronic problem, stable, continue to monitor longitudinally. 3. Anticoagulated Chronic problem , treating the chronic deep vein thrombosis, that is monitor longitudinally. See the previous INR levels. Patient does not need refill of warfarin at this time. documented in this encounter [facility] 06-30-2024 Hospital Discharge instructions Patient Education 06/30/2024 14:24:44 Benign Prostatic Hyperplasia Benign Prostatic Hyperplasia Benign prostatic hyperplasia (BPH) is an enlarged prostate gland that is caused by the normal aging process. The prostate may get bigger as a man gets older. The condition is not caused by cancer. The prostate is a walnut-sized gland that is involved in the production of semen. It is located in front of the rectum and below the bladder. The bladder stores urine. The urethra carries stored urine out of the body. An enlarged prostate can press on the urethra. This can make it harder to pass urine. The buildup of urine in the bladder can cause infection. Back pressure and infection may progress to bladder damage and kidney (renal) failure. What are the causes? This condition is part of the normal aging process. However, not all men develop problems from this condition. If the prostate enlarges away from the urethra, urine flow will not be blocked. If it enlarges toward the urethra and compresses it, there will be problems passing urine. What increases the risk? This condition is more likely to develop in men older than 50 years. What are the signs or symptoms? Symptoms of this condition include: Getting up often during the night to urinate. Needing to urinate frequently during the day. Difficulty starting urine flow. Decrease in size and strength of your urine stream. Leaking (dribbling) after urinating. Inability to pass urine. This needs immediate treatment. Inability to completely empty your bladder. Pain when you pass urine. This is more common if there is also an infection. Urinary tract infection (UTI). How is this diagnosed? This condition is diagnosed based on your medical history, a physical exam, and your symptoms. Tests will also be done, such as: A post-void bladder scan. This measures any amount of urine that may remain in your bladder after you finish urinating. A digital rectal exam. In a rectal exam, your health care provider checks your prostate by putting a lubricated, gloved finger into your rectum to feel the back of your prostate gland. This exam detects the size of your gland and any abnormal lumps or growths. An exam of your urine (urinalysis). A prostate specific antigen (PSA) screening. This is a blood test used to screen for prostate cancer. An ultrasound. This test uses sound waves to electronically produce a picture of your prostate gland. Your health care provider may refer you to a specialist in kidney and prostate diseases (urologist). How is this treated? Once symptoms begin, your health care provider will monitor your condition (active surveillance or watchful waiting). Treatment for this condition will depend on the severity of your condition. Treatment may include: Observation and yearly exams. This may be the only treatment needed if your condition and symptoms are mild. Medicines to relieve your symptoms, including: ?Medicines to shrink the prostate. ?Medicines to relax the muscle of the prostate. Surgery in severe cases. Surgery may include: ?Prostatectomy. In this procedure, the prostate tissue is removed completely through an open incision or with a laparoscope or robotics. ?Transurethral resection of the prostate (TURP). In this procedure, a tool is inserted through the opening at the tip of the penis (urethra). It is used to cut away tissue of the inner core of the prostate. The pieces are removed through the same opening of the penis. This removes the blockage. ?Transurethral incision (TUIP). In this procedure, small cuts are made in the prostate. This lessens the prostate's pressure on the urethra. ?Transurethral microwave thermotherapy (TUMT). This procedure uses microwaves to create heat. The heat destroys and removes a small amount of prostate tissue. ?Transurethral needle ablation (TUNA). This procedure uses radio frequencies to destroy and remove a small amount of prostate tissue. ?Interstitial laser coagulation (ILC). This procedure uses a laser to destroy and remove a small amount of prostate tissue. ?Transurethral electrovaporization (TUVP). This procedure uses electrodes to destroy and remove a small amount of prostate tissue. ?Prostatic urethral lift. This procedure inserts an implant to push the lobes of the prostate away from the urethra. Follow these instructions at home: Take bddr-iph-bdygsqx and prescription medicines only as told by your health care provider. Monitor your symptoms for any changes. Contact your health care provider with any changes. Avoid drinking large amounts of liquid before going to bed or out in public. Avoid or reduce how much caffeine or alcohol you drink. Give yourself time when you urinate. Keep all follow-up visits. This is important. Contact a health care provider if: You have unexplained back pain. Your symptoms do not get better with treatment. You develop side effects from the medicine you are taking. Your urine becomes very dark or has a bad smell. Your lower abdomen becomes distended and you have trouble passing urine. Get help right away if: You have a fever or chills. You suddenly cannot urinate. You feel light-headed or very dizzy, or you faint. There are large amounts of blood or clots in your urine. Your urinary problems become hard to manage. You develop moderate to severe low back or flank pain. The flank is the side of your body between the ribs and the hip. These symptoms may be an emergency. Get help right away. Call 911. Do not wait to see if the symptoms will go away. Do not drive yourself to the hospital. Summary Benign prostatic hyperplasia (BPH) is an enlarged prostate that is caused by the normal aging process. It is not caused by cancer. An enlarged prostate can press on the urethra. This can make it hard to pass urine. This condition is more likely to develop in men older than 50 years. Get help right away if you suddenly cannot urinate. This information is not intended to replace advice given to you by your health care provider. Make sure you discuss any questions you have with your health care provider. Document Revised: 02/07/2022 Document Reviewed: 02/07/2022 [employer] Patient Education 2023 [employer]. Follow Up Care 03/03/2024 13:50:28 With:APURVA CALIX, Domenico Haywood, URL Address: [address] [place], [place] [id number]- When: Unknown [facility] 06-30-2024 Note Patient Education Urology Benign Prostatic Hyperplasia Benign prostatic hyperplasia (BPH) is an enlarged prostate gland that is caused by the normal aging process. The prostate may get bigger as a man gets older. The condition is not caused by cancer. The prostate is a walnut-sized gland that is involved in the production of semen. It is located in front of the rectum and below the bladder. The bladder stores urine. The urethra carries stored urine out of the body. An enlarged prostate can press on the urethra. This can make it harder to pass urine. The buildup of urine in the bladder can cause infection. Back pressure and infection may progress to bladder damage and kidney (renal) failure. What are the causes? This condition is part of the normal aging process. However, not all men develop problems from this condition. If the prostate enlarges away from the urethra, urine flow will not be blocked. If it enlarges toward the urethra and compresses it, there will be problems passing urine. What increases the risk? This condition is more likely to develop in men older than 50 years. What are the signs or symptoms? Symptoms of this condition include: ??? Getting up often during the night to urinate. ??? Needing to urinate frequently during the day. ??? Difficulty starting urine flow. ??? Decrease in size and strength of your urine stream. ??? Leaking (dribbling) after urinating. ??? Inability to pass urine. This needs immediate treatment. ??? Inability to completely empty your bladder. ??? Pain when you pass urine. This is more common if there is also an infection. ??? Urinary tract infection (UTI). How is this diagnosed? This condition is diagnosed based on your medical history, a physical exam, and your symptoms. Tests will also be done, such as: ??? A post-void bladder scan. This measures any amount of urine that may remain in your bladder after you finish urinating. ??? A digital rectal exam. In a rectal exam, your health care provider checks your prostate by putting a lubricated, gloved finger into your rectum to feel the back of your prostate gland. This exam detects the size of your gland and any abnormal lumps or growths. ??? An exam of your urine (urinalysis). ??? A prostate specific antigen (PSA) screening. This is a blood test used to screen for prostate cancer. ??? An ultrasound. This test uses sound waves to electronically produce a picture of your prostate gland. Your health care provider may refer you to a specialist in kidney and prostate diseases (urologist). How is this treated? Once symptoms begin, your health care provider will monitor your condition (active surveillance or watchful waiting). Treatment for this condition will depend on the severity of your condition. Treatment may include: ??? Observation and yearly exams. This may be the only treatment needed if your condition and symptoms are mild. ??? Medicines to relieve your symptoms, including: ? Medicines to shrink the prostate. ? Medicines to relax the muscle of the prostate. ??? Surgery in severe cases. Surgery may include: ? Prostatectomy. In this procedure, the prostate tissue is removed completely through an open incision or with a laparoscope or robotics. ? Transurethral resection of the prostate (TURP). In this procedure, a tool is inserted through the opening at the tip of the penis (urethra). It is used to cut away tissue of the inner core of the prostate. The pieces are removed through the same opening of the penis. This removes the blockage. ? Transurethral incision (TUIP). In this procedure, small cuts are made in the prostate. This lessens the prostate's pressure on the urethra. ? Transurethral microwave thermotherapy (TUMT). This procedure uses microwaves to create heat. The heat destroys and removes a small amount of prostate tissue. ? Transurethral needle ablation (TUNA). This procedure uses radio frequencies to destroy and remove a small amount of prostate tissue. ? Interstitial laser coagulation (ILC). This procedure uses a laser to destroy and remove a small amount of prostate tissue. ? Transurethral electrovaporization (TUVP). This procedure uses electrodes to destroy and remove a small amount of prostate tissue. ? Prostatic urethral lift. This procedure inserts an implant to push the lobes of the prostate away from the urethra. Follow these instructions at home: ??? Take ninl-xwy-ljizunt and prescription medicines only as told by your health care provider. ??? Monitor your symptoms for any changes. Contact your health care provider with any changes. ??? Avoid drinking large amounts of liquid before going to bed or out in public. ??? Avoid or reduce how much caffeine or alcohol you drink. ??? Give yourself time when you urinate. ??? Keep all follow-up visits. This is important. Contact a health care provider if: ??? You have unexplained back pain. ??? Your symptoms do not get (more content not included)... [facility] 05-27-2024 History of Present illness Narrative Images from the original note were not included. Padmini Lloyd is a 74 y.o. male presents with chief complaint of left robotic assist total hip arthroplasty 11-26-2023. HPI: Padmini returns here today for his six month check of his left total hip. He is doing well. Very pleased. He is doing everything that he needs and wants to do. He is doing an exercise program. He does have a little bit of discomfort over his incision area still. SUBJECTIVE: MEDICATIONS: Current Outpatient Medications Medication Instructions albuterol HFA 90 mcg/act inhaler 2 puffs, Inhalation, Every 4 hours PRN cholecalciferol (Vitamin D3) 25 MCG (1000 UT) tablet 1 tablet, Daily cyanocobalamin (Vitamin B-12) 500 MCG tablet 1 tablet, 2 times weekly ketorolac (Acular) 0.5 % ophthalmic solution Use one drop in operative eye as directed by Dr. Kent starting tomorrow. losartan (COZAAR) 100 mg, Oral, Daily magnesium gluconate 250 mg, Daily Multiple Vitamins-Minerals (ONE DAILY 50 PLUS PO) 1 tablet, Daily potassium citrate CR (Urocit-K-10) 10 mEq ER tablet 20 mEq, 2 times daily prednisoLONE acetate (Pred-Forte) 1 % ophthalmic suspension Use one drop in operative eye as directed by Dr. Kent starting tomorrow. Spacer/Aero-Holding Chambers (BreatheRite Tanesha Spacer Adult) misc 2 puffs, Does not apply, 4 times daily PRN warfarin (COUMADIN) 6 mg, Oral, Nightly zinc, chelated 25 mg, Daily ALLERGIES: Allergies Allergen Reactions Moxifloxacin Other Reaction(s): hives Quinolones Unknown Other Reaction(s): Hallucinating Sulfa Antibiotics Other Reaction(s): Hallucinating Sulfamethoxazole Other Reaction(s): Hallucinating Sulfamethoxazole-Trimethoprim Other Reaction(s): shut his kidneys down Trimethoprim Other Reaction(s): Hallucinating SURGICAL HISTORY: Past Surgical History: Procedure Laterality Date BLADDER STONE REMOVAL 05/20/2023 Dr Gipson, [facility] BLADDER SURGERY 02/13/2024 Cystoscopy and transurethral laser ablation, Dr Gipson [facility] CATARACT EXTRACTION Left COLONOSCOPY 2005 2012 CYSTOSCOPY 09/2020 cysto, oiu, stone removal from bladder, [facility] EYE SURGERY 01/2021 radiation on left eye lymphoma (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 OTHER SURGICAL HISTORY 11/28/2016 Prostate seed implanted OTHER SURGICAL HISTORY 03/14/2022 gall stone removal, [place] [facility] PARATHYROIDECTOMY 10/22/2023 Neck Exploration Excision Parathyroid Adenoma PROSTATE BIOPSY 09/07/2016 miguel angel score 6 FAMILY HISTORY: Family History Problem Relation Name Age of Onset Hypertension Mother Netta Lloyd Other (CABG) Father Tu Lloyd Prostate cancer Father Tu Lloyd Colon cancer Father Tu Lloyd Stroke Father Tu Lloyd Cancer Father Tu Lloyd No Known Problems Brother No Known Problems Daughter No Known Problems Son SOCIAL HISTORY: Social History Tobacco Use Smoking status: Former Current packs/day: 0.00 Average packs/day: 0.5 packs/day for 20.0 years (10.0 ttl pk-yrs) Types: Cigarettes Start date: 08/05/1964 Quit date: 08/05/1984 Years since quittin.8 Smokeless tobacco: Never Vaping Use Vaping status: Never Used Substance Use Topics Alcohol use: Not Currently Alcohol/week: 2.0 standard drinks of alcohol Comment: Occasionally; caffeine intake : none Drug use: Never Depression: Not at risk (01/27/2024) PHQ-2 PHQ-2 Score: 0 REVIEW OF SYMPTOMS: The review of systems, history and current medications list are all reviewed today. OBJECTIVE: Visit Vitals Ht 6' Wt 240 lb BMI 32.55 kg/m Smoking Status Former BSA 2.35 m Physical Exam His orthopedic exam reveals gentle arc of motion without a lot of difficulty. He has no trochanteric tenderness here today. The calf and thigh are supple bilaterally. Right hip is benign as well. Examination of the x-ray AP pelvis, left hip total of three views with permanent images are saved to the record does show evidence of the well-fixed, well-aligned total hip arthroplasty. There is no evidence of fracture, loosening or catastrophic wear. ASSESSMENT AND PLAN: Assessment/Plan Left robotic assist total hip. The findings are discussed. The treatment alternatives are outlined. We did recommend supportive care for him and continued progression of all activities. He does voice understanding of this plan. We did personnel counselor him on time frame of healing, balance of activity. He is counseled on the antibiotic prophylaxis and metal detectors. We will see him back here in six months for x-ray and recheck. He is discharged in stable condition. Cosigned by Christian Bustos DO at 05/27/2024 3:35 PM EDT documented in this encounter [facility] 05-12-2024 History of Present illness Narrative HPI Patient presents today 6 months postop parathyroidectomy. 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 His most recent lab work including PTH, calcium and vitamin-D are all well within normal limits. 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 Diagnoses and all orders for this visit: History of parathyroidectomy (Primary) Comments: By definition, the patient has cured of his hyperparathyroidism, I will see him back as needed documented in this encounter [facility] 05-05-2024 Note HNO ID: [id number] Author: ERNA BROWN COA Service: ? Author Type: Sheltered Workshop Executive Director Type: Progress Notes Filed: 05/05/2024 14:16 Note Text: Confirmed Aim: [place] OS PATIENT DECLINES TORIC Written pre-op instructions regarding eye drops and care reviewed with patient. DAIJA Chavira May 05, 2024 2:15 PM [facility] 05-05-2024 Note Date of Procedure 05/05/2024. Sheltered Workshop Executive Director Information Social Work Professor: TO. Notes Measurements only - see Procedure Record under Scanned Documents for signed results. [facility] 05-05-2024 Note Date of Procedure 05/05/2024. Sheltered Workshop Executive Director Information Social Work Professor: TO. Torrey Right Eye AL 24.42 Ascan Left Eye AL 24.27. [facility] 05-05-2024 History of Present illness Narrative Confirmed Aim: [place] OS PATIENT DECLINES TORIC Written pre-op instructions regarding eye drops and care reviewed with patient. DAIJA Chavira May 05, 2024 2:15 PM documented in this encounter [facility] 05-05-2024 History and physical note HISTORY AND PHYSICAL EXAMINATION SERVICE DATE: 05/05/2024 SERVICE TIME: 1:03 PM PRIMARY CARE PHYSICIAN: Jarred Arias MD, MD REASON FOR VISIT: Padmini Lloyd is a 74 year old male who is scheduled for Left - PHACOEMULSIFICATION CATARACT IMPLANT INTRAOCULAR LENS W/O ENDOSCOPIC CYCLOPHOTOCOAGULATION Left - OPHTHALMIC BIOMETRY BY PARTIAL COHERENCE INTERFEROMETRY W/INTRAOCULAR LENS POWER CALCULATION at the request of Dr. Kaye Kent for consultation. My final recommendation will be communicated back to the requesting physician by way of shared medical record or letter. 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 Reid Activity Status Index: METS: Do moderate work around the house, such as vacuuming, sweeping floors, or carrying in groceries (3.50 METs) Climb a flight of stairs or walk up a hill (5.50 METs) DASI Score: 9 Patient denies any chest pain or undue shortness of breath with the above physical activity. STOP-Bang Score: Has or is being treated for high blood pressure Patient over 50 years old Male patient Denies snoring loudly Denies feeling tired, fatigued, or sleepy during the daytime Has not been observed to stop breathing or choking/gasping during sleep BMI less than or equal to 35 kg/m^2 Does not have a large neck STOP-Bang Score: 3 [id number] Score: Age: 65-74 Sex: male CHF history: No Hypertension history: Yes Stroke/TIA/thromboembolism history: Yes Vascular disease history: No Diabetes history: No [id number] Score: 4 ARISCAT Score: Age: 51-80 Preoperative SpO2: >=96% Respiratory infection in the last month: No Preoperative anemia: Yes Surgical incision: peripheral Duration of surgery: <2 hrs Emergency procedure: No ARISCAT Score: 14 ANESTHESIA FINDINGS: Intubation History: No history of difficult intubation Significant Anesthesia Considerations: none Airway History: No history of difficult airway Airway Exam: General: Normal appearance There is no height or weight on file to calculate BMI. Mallampati Score is CLASS II ULBT: Class I - Lower incisors can bite the upper lip above the hair line Neck: Normal appearance and function, Distance from hyoid to mentum during neck extension is at least 3 finger breaths Mouth: Normal tongue size and Mouth opening greater than 2 finger breaths Dentition: Intact and Caps/crowns Airway History: No abnormal airway history Planned Anesthetic: Per anesthesia choice Prepared for surgery: This patient is optimally prepared for surgery. CONSULTS: Patient does not require consults for optimization at this time. The Following Tests/Procedures Have Been Initiated: Labs not indicated per PACC protocol, EKG not indicated per PACC protocol Planned Anesthetic: Per anesthesia choice Subjective CHIEF COMPLAINT: Visual Changes HPI: 74 year old year old presents today with complaints of difficulty with vision for > 3 months. Found to have cataract on exam. Denies pain. No relieving factors. PAST MEDICAL HISTORY Diagnosis Date HTN (hypertension) Lymphoma of eye region (HCC) Left PAST SURGICAL HISTORY Procedure Laterality Date PAST SURGICAL HISTORY OF left hand skin graft--table saw accident FAMILY HISTORY Problem Relation Age of Onset Colon Cancer Father Prostate Cancer Father Macular Degen Mother other (Leukemia) Brother SOCIAL HISTORY: Social History Tobacco Use Smoking status: Former Current packs/day: 0.00 Average packs/day: 1 pack/day for 15.0 years (15.0 ttl pk-yrs) Types: Cigarettes Start date: 09/10/1969 Quit date: 09/10/1984 Years since quittin.6 Smokeless tobacco: Never Vaping Use Vaping status: Never Used Substance Use Topics Alcohol use: Not Currently Drug use: Never Prior to Admission medications as of 05/05/24 1307 Medication Sig Last Dose Taking potassium citrate ER (UROCIT-K) 10 mEq (1,080 mg) Take 2,160 mg by mouth two times a day. Taking Yes gentamicin (GENTAK) 0.3 % ophthalmic solution One drop in the OPERATIVE EYE only four times a day starting the day before surgery and for three days after Taking Yes ZINC ORAL Take 25 mg by mouth. Taking Yes Magnesium 250 mg tab Take 250 mg by mouth. Taking Yes losartan (COZAAR) 100 mg tablet Take 100 mg by mouth once daily. Taking Yes cyanocobalamin (VITAMIN B-12) 1,000 mcg tab Take 1,000 mcg by mouth two times a week. Taking Yes warfarin sodium (WARFARIN ORAL) Take by mouth daily as directed. As Directed Taking Yes ergocalciferol, vitamin D2, (VITAMIN D2 ORAL) Take by mouth. Taking Yes Multivitamin capsule Take 1 capsule by mouth once daily. Taking Yes No medication comments found. ALLERGIES Allergen Reactions Avelox [Moxifloxaci* Mental Status Change Bactrim [Sulfametho* Mental Status Change, Other: See Comments Renal Failure Quinolones Other: See Comments Confusion Sulfa (Sulfonamide * Other: See Comments Abdomin pain Covid Immunization Dates Overdue - Covid-19 Vaccine (1) Never done No completion, postpone, frequency change, or communication history exists for this topic. REVIEW OF SYSTEMS: PAIN ASSESSMENT: General: No weight loss, malaise or fevers. Neuro: No history of TIA's, stroke, [employer] tumor, impaired sensorium, hemiplegia, paraplegia or quadraplegia. No neurological symptoms or problems. Respiratory: No history of current cough or dyspnea, or pneumonia in the past 6 weeks. No history of respiratory/pulmonary symptoms or problems. Cardiovascular: Negative for Recent AL, Angina, Chest Pain, PVD, DVT/PE +HTN +H/o DVT (Leg and Lung) recurrent GI: Negative for Nausea, Vomiting, Abdominal pain : Negative for dysuria, incontinence, hematuria, and hesitancy Endocrine: No history of diabetes. Has not taken steroids within the past 30 days. No history of endocrinological symptoms or problems. Hematology: Chronic anti-coagulation / platelet meds (Coumadin) Oncology: +H/o prostate cancer s/p brachytherapy +Lymphoma Psych: No history of psychiatric symptoms or problems. Musculoskeletal: Negative for joint pain or swelling, back pain or muscle pain. Skin: Negative for lesions, rash and itching. Objective PHYSICAL EXAM: VITALS: BP 141/83 Pulse 72 Temp (Src) 98.4 (Oral) Resp 16 Ht 6' 0 (1.83m) Wt 240 lb 4.8 oz (109.0kg) SpO2 96% BMI 32.58 kg/(m^2). General: Alert and oriented Skin: Normal color, no rash, no lesions. HEENT: EOM, pupils equal, round and reactive. Cardiovascular: Normal S1 & S2, no rubs, murmurs or gallops. No JVD. Pulse regular. Lungs: Normal breath sounds, no wheezes or crackles. Abdomen: Soft, non-tender, no rigidity. Extremities: No deformity, no edema or tenderness, no joint swelling or clubbing. Neurological: Normal cognition and motor skills. Pulses: Carotid and radial pulses normal +2. Diagnostic tests reviewed for today's visit: No new labs or tests Instructions Given to Patient: Instructions located in the after visit summary. Patient given verbal and written preop instructions and voices comprehension and compliance. SIGNATURE: Patricia Brand APRN.CNP PATIENT NAME: Padmini Lloyd DATE: 05/05/2024 TIME: 1:03 PM [facility] 05-05-2024 History and physical note HISTORY AND PHYSICAL EXAMINATION SERVICE DATE: 05/05/2024 SERVICE TIME: 1:03 PM PRIMARY CARE PHYSICIAN: Jarred Arias MD, MD REASON FOR VISIT: Padmini Lloyd is a 74 year old male who is scheduled for Left - PHACOEMULSIFICATION CATARACT IMPLANT INTRAOCULAR LENS W/O ENDOSCOPIC CYCLOPHOTOCOAGULATION Left - OPHTHALMIC BIOMETRY BY PARTIAL COHERENCE INTERFEROMETRY W/INTRAOCULAR LENS POWER CALCULATION at the request of Dr. Kaye Kent for consultation. My final recommendation will be communicated back to the requesting physician by way of shared medical record or letter. 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 Reid Activity Status Index: METS: Do moderate work around the house, such as vacuuming, sweeping floors, or carrying in groceries (3.50 METs) Climb a flight of stairs or walk up a hill (5.50 METs) DASI Score: 9 Patient denies any chest pain or undue shortness of breath with the above physical activity. STOP-Bang Score: Has or is being treated for high blood pressure Patient over 50 years old Male patient Denies snoring loudly Denies feeling tired, fatigued, or sleepy during the daytime Has not been observed to stop breathing or choking/gasping during sleep BMI less than or equal to 35 kg/m^2 Does not have a large neck STOP-Bang Score: 3 [id number] Score: Age: 65-74 Sex: male CHF history: No Hypertension history: Yes Stroke/TIA/thromboembolism history: Yes Vascular disease history: No Diabetes history: No [id number] Score: 4 ARISCAT Score: Age: 51-80 Preoperative SpO2: >=96% Respiratory infection in the last month: No Preoperative anemia: Yes Surgical incision: peripheral Duration of surgery: <2 hrs Emergency procedure: No ARISCAT Score: 14 ANESTHESIA FINDINGS: Intubation History: No history of difficult intubation Significant Anesthesia Considerations: none Airway History: No history of difficult airway Airway Exam: General: Normal appearance There is no height or weight on file to calculate BMI. Mallampati Score is CLASS II ULBT: Class I - Lower incisors can bite the upper lip above the hair line Neck: Normal appearance and function, Distance from hyoid to mentum during neck extension is at least 3 finger breaths Mouth: Normal tongue size and Mouth opening greater than 2 finger breaths Dentition: Intact and Caps/crowns Airway History: No abnormal airway history Planned Anesthetic: Per anesthesia choice Prepared for surgery: This patient is optimally prepared for surgery. CONSULTS: Patient does not require consults for optimization at this time. The Following Tests/Procedures Have Been Initiated: Labs not indicated per [facility] protocol, EKG not indicated per [facility] protocol Planned Anesthetic: Per anesthesia choice Subjective CHIEF COMPLAINT: Visual Changes HPI: 74 year old year old presents today with complaints of difficulty with vision for > 3 months. Found to have cataract on exam. Denies pain. No relieving factors. PAST MEDICAL HISTORY Diagnosis Date HTN (hypertension) Lymphoma of eye region (HCC) Left PAST SURGICAL HISTORY Procedure Laterality Date PAST SURGICAL HISTORY OF left hand skin graft--table saw accident FAMILY HISTORY Problem Relation Age of Onset Colon Cancer Father Prostate Cancer Father Macular Degen Mother other (Leukemia) Brother SOCIAL HISTORY: Social History Tobacco Use Smoking status: Former Current packs/day: 0.00 Average packs/day: 1 pack/day for 15.0 years (15.0 ttl pk-yrs) Types: Cigarettes Start date: 09/10/1969 Quit date: 09/10/1984 Years since quittin.6 Smokeless tobacco: Never Vaping Use Vaping status: Never Used Substance Use Topics Alcohol use: Not Currently Drug use: Never Prior to Admission medications as of 05/05/24 1307 Medication Sig Last Dose Taking potassium citrate ER (UROCIT-K) 10 mEq (1,080 mg) Take 2,160 mg by mouth two times a day. Taking Yes gentamicin (GENTAK) 0.3 % ophthalmic solution One drop in the OPERATIVE EYE only four times a day starting the day before surgery and for three days after Taking Yes ZINC ORAL Take 25 mg by mouth. Taking Yes Magnesium 250 mg tab Take 250 mg by mouth. Taking Yes losartan (COZAAR) 100 mg tablet Take 100 mg by mouth once daily. Taking Yes cyanocobalamin (VITAMIN B-12) 1,000 mcg tab Take 1,000 mcg by mouth two times a week. Taking Yes warfarin sodium (WARFARIN ORAL) Take by mouth daily as directed. As Directed Taking Yes ergocalciferol, vitamin D2, (VITAMIN D2 ORAL) Take by mouth. Taking Yes Multivitamin capsule Take 1 capsule by mouth once daily. Taking Yes No medication comments found. ALLERGIES Allergen Reactions Avelox [Moxifloxaci* Mental Status Change Bactrim [Sulfametho* Mental Status Change, Other: See Comments Renal Failure Quinolones Other: See Comments Confusion Sulfa (Sulfonamide * Other: See Comments Abdomin pain Covid Immunization Dates Overdue - Covid-19 Vaccine (1) Never done No completion, postpone, frequency change, or communication history exists for this topic. REVIEW OF SYSTEMS: PAIN ASSESSMENT: General: No weight loss, malaise or fevers. Neuro: No history of TIA's, stroke, [employer] tumor, impaired sensorium, hemiplegia, paraplegia or quadraplegia. No neurological symptoms or problems. Respiratory: No history of current cough or dyspnea, or pneumonia in the past 6 weeks. No history of respiratory/pulmonary symptoms or problems. Cardiovascular: Negative for Recent AL, Angina, Chest Pain, PVD, DVT/PE +HTN +H/o DVT (Leg and Lung) recurrent GI: Negative for Nausea, Vomiting, Abdominal pain : Negative for dysuria, incontinence, hematuria, and hesitancy Endocrine: No history of diabetes. Has not taken steroids within the past 30 days. No history of endocrinological symptoms or problems. Hematology: Chronic anti-coagulation / platelet meds (Coumadin) Oncology: +H/o prostate cancer s/p brachytherapy +Lymphoma Psych: No history of psychiatric symptoms or problems. Musculoskeletal: Negative for joint pain or swelling, back pain or muscle pain. Skin: Negative for lesions, rash and itching. Objective PHYSICAL EXAM: VITALS: BP 141/83 Pulse 72 Temp (Src) 98.4 (Oral) Resp 16 Ht 6' 0 (1.83m) Wt 240 lb 4.8 oz (109.0kg) SpO2 96% BMI 32.58 kg/(m^2). General: Alert and oriented Skin: Normal color, no rash, no lesions. HEENT: EOM, pupils equal, round and reactive. Cardiovascular: Normal S1 & S2, no rubs, murmurs or gallops. No JVD. Pulse regular. Lungs: Normal breath sounds, no wheezes or crackles. Abdomen: Soft, non-tender, no rigidity. Extremities: No deformity, no edema or tenderness, no joint swelling or clubbing. Neurological: Normal cognition and motor skills. Pulses: Carotid and radial pulses normal +2. Diagnostic tests reviewed for today's visit: No new labs or tests Instructions Given to Patient: Instructions located in the after visit summary. Patient given verbal and written preop instructions and voices comprehension and compliance. SIGNATURE: Patricia Brand APRN.CNP PATIENT NAME: Padmini Lloyd DATE: 05/05/2024 TIME: 1:03 PM documented in this encounter [facility] 05-05-2024 Instructions Patricia Brand APRN.CNP - 05/05/2024 12:30 PM EDT Images from the original note were not included. [facility] PATIENT PREOPERATIVE INSTRUCTIONS Your Surgeon has scheduled you for your procedure at this surgery center: [place] [facility]: [phone] --[id number] [facility] [place] [address]. Please read below carefully for your personalized instructions. Dietary Restrictions: - No solid food after midnight. - You may have 12 ounces of clear liquids (water, clear juices such as apple juice or gatorade, carbonated beverages, clear tea, black coffee, jello) until 2 hours before scheduled arrival at facility. Medications: Unless instructed differently below, stay on all of your medications until your surgery. If you start any new medications after today's visit, please contact the surgeon's office. Important Reminders: - If you are prescribed inhalers for breathing, continue using them. - Candy, mints, and tobacco products are NOT permitted the morning of surgery. - Hearing aids, dentures and glasses may be worn the morning of surgery. - NO jewelry, body piercings, makeup, hairpins or contacts are to be worn the day of surgery. If you develop symptoms such as a fever, cold, or flu, or have other changes to your health within TWO DAYS of scheduled surgery or the morning of surgery, please contact the surgery center above. Personal Belongings: -Please have photo ID and insurance cards. -If you do not have a copy of advance directives on file with us, please bring a copy with you on the day of surgery. - Leave ALL valuables and money at home or with family members. For Outpatient Procedures: - YOU MUST HAVE A RESPONSIBLE GAS METER CHECKER TAKE YOU HOME. A CALENDER MACHINE OPERATOR HELPER OR WELL FLOW OPERATOR CANNOT BE MADE A RESPONSIBLE GAS METER CHECKER. - We recommend that a responsible person stays with you overnight to take care of you. - You cannot stay in a hotel alone after outpatient surgery. You will not be permitted to have your surgery, if you do not have someone to take care of you. Arrival Time for Surgery: - The Surgery Center or hospital where you are having surgery will call the afternoon before surgery (or Saturday for Saturday surgery) with a scheduled arrival time. - If you have not heard by 4 pm, please contact the surgery center above. Please be aware that emergency situations arise, which may delay or change your surgical time. If this happens, we will notify you as soon as possible and regret any inconvenience. If you already have an Advance Directive, please fax a copy to [phone] or email to for it to be added to your chart. If you do not have an Advance Directive, you can find the appropriate form and more information at [email or web address]. We recommend that you complete the Advance Directive form found on the website and bring it with you the day of your surgery. It can be witnessed and scanned into your chart that day. Patricia Brand APRN., CNP documented in this encounter [facility] 04-16-2024 Telephone encounter Note Spoke with patient he is now scheduled Comanaged postops with Dr. Mujica are: 05/14/24 @ 12:15 pm 10 @ 12:15 pm [facility] 04-16-2024 Miscellaneous Notes Spoke with patient he is now scheduled Comanaged postops with Dr. Mujica are: 05/14/24 @ 12:15 pm 05/20/24 @ 12:15 pm Patient returned call, please call back at [phone]. Images from the original note were not included. Called pt to assist in scheduling surgery left message for patient to return call to [phone] to schedule surgery. Kaye Kent MD P Ln Opht Surg In House Counsel offered cataract Surgery OS. Co-manage with Dr. Mujica. Offered Phacoemulsification cataract extraction with insertion of intraocular lens by Dr. Kent OS only. OD when qualifies by BAT. Patient wishes to proceed with surgery. All questions were answered. A-scan to be performed pre-operatively. Referred by Dr. Mujica, Thank you for your kind referral! Allergies: see list - Aim: [place] OS. - Anesthesia: Topical with MAC - Diabetes Mellitus No - Blood thinner use Yes - Flomax/alpha-debbi? No - Able to lie supine Yes - Wants versed Yes - Happy for prayer Yes - Warned of IOL-induced photopsias Yes - Advised there is no guarantee of freedom from glasses Yes; -Discussed possible increased sensitivity and starbursting when exposed to flickering lights such as LED and fluorescent lights after cataract surgery, which usually decreases with time. - Discussed toric Intraocular lens not covered by insurance Yes $1400 per eye - Toric candidate: Offer Toric lens if patient qualifies by Ultrasound measurements. Without the toric IOL, patient was told that they will still need to wear glasses to correct residual astigmatism at all distances. Even with toric IOL, we cannot guarantee no residual astigmatism. - Contact lens use No documented in this encounter [facility] 04-16-2024 Telephone encounter Note Patient returned call, please call back at [phone]. [facility] 04-16-2024 Telephone encounter Note Images from the original note were not included. Called pt to assist in scheduling surgery left message for patient to return call to [phone] to schedule surgery. Kaye Kent MD P Ln Opht Surg In House Counsel offered cataract Surgery OS. Co-manage with Dr. Mujica. Offered Phacoemulsification cataract extraction with insertion of intraocular lens by Dr. Kent OS only. OD when qualifies by BAT. Patient wishes to proceed with surgery. All questions were answered. A-scan to be performed pre-operatively. Referred by Dr. Mujica, Thank you for your kind referral! Allergies: see list - Aim: [place] OS. - Anesthesia: Topical with MAC - Diabetes Mellitus No - Blood thinner use Yes - Flomax/alpha-debbi? No - Able to lie supine Yes - Wants versed Yes - Happy for prayer Yes - Warned of IOL-induced photopsias Yes - Advised there is no guarantee of freedom from glasses Yes; -Discussed possible increased sensitivity and starbursting when exposed to flickering lights such as LED and fluorescent lights after cataract surgery, which usually decreases with time. - Discussed toric Intraocular lens not covered by insurance Yes $1400 per eye - Toric candidate: Offer Toric lens if patient qualifies by Ultrasound measurements. Without the toric IOL, patient was told that they will still need to wear glasses to correct residual astigmatism at all distances. Even with toric IOL, we cannot guarantee no residual astigmatism. - Contact lens use No [facility] 04-14-2024 Note HNO ID: [id number] Author: KAYE KENT MD Service: ? Author Type: Physician Type: Progress Notes Filed: 04/14/2024 18:17 Note Text: ASSESSMENT/PLAN: 1. Combined forms of age-related cataract of left eye - ICD9: 366.19, ICD10: H25.812 (primary diagnosis) Cataract OS>>OD; history of radiation for eyelid lymphoma OS CORNEAL TOPOGRAPHY: Less than one diopter, regular, both eyes Mac OCT: Normal foveal contour, no Subretinal fluid, no intraretinal fluid in both eyes; poor image quality OS due to dense cataract Cataract Presurgical Documentation Cataract: Both eyes (OU) Current Visual Acuity Right Eye Distance SC 20/20 Left Eye Distance SC 20/150 Glare Testing: Right Eye High 20/25 Visual Function: Padmini Lloyd states that the decline in vision from the cataract impedes his abilities as listed in the HPI, as well as other activities of daily living. Padmini Lloyd has confirmed that he is no longer able to function adequately on a day-to-day basis because of his current visual condition. Further, it is my medical opinion that the cataract is the primary cause, or at least a significantly contributory cause of his visual dysfunction. With uncomplicated cataract surgery and lens implantation, it is my expectation that his visual function and quality of life will improve, significantly. The risks, benefits, alternatives, personnel and complications of cataract surgery with lens implantation were discussed with Padmini Roberts Haroonevert in detail. he appeared to understand and asked that I proceed with plans for surgery. Offered Phacoemulsification cataract extraction with insertion of intraocular lens by Dr. Kent OS only. OD when qualifies by BAT. Patient wishes to proceed with surgery. All questions were answered. A-scan to be performed pre-operatively. Referred by Dr. Mujica, Thank you for your kind referral! Allergies: see list - Aim: [place] OS. - Anesthesia: Topical with MAC - Diabetes Mellitus No - Blood thinner use Yes - Flomax/alpha-debbi? No - Able to lie supine Yes - Wants versed Yes - Happy for prayer Yes - Warned of IOL-induced photopsias Yes - Advised there is no guarantee of freedom from glasses Yes; -Discussed possible increased sensitivity and starbursting when exposed to flickering lights such as LED and fluorescent lights after cataract surgery, which usually decreases with time. - Discussed toric Intraocular lens not covered by insurance Yes $1400 per eye - Toric candidate: Offer Toric lens if patient qualifies by Ultrasound measurements. Without the toric IOL, patient was told that they will still need to wear glasses to correct residual astigmatism at all distances. Even with toric IOL, we cannot guarantee no residual astigmatism. - Contact lens use No - e-scribed eye drops -Initiate eyelid scrubs twice daily for one week prior to cataract surgery. - Literature regarding cataract and cataract extraction by phacoemulsification offered. - Discussed pros and cons of multifocal IOLs including cost and 20% risk of night glare - Discussed multifocal Intraocular lens not covered by insurance Yes $2900 per eye. - Patient understands out of pocket cost and Patient Declines having multifocal intraocular lenses. - Co-mange with Dr. Mujica 2. Combined forms of age-related cataract of right eye - ICD9: 366.19, ICD10: H25.811 Signs and symptoms of cataracts were reviewed. Offered cataract surgery when the patient develops functional disability from the cataracts and when the patient qualifies for insurance coverage of cataract surgery based on glare testing. 3. 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 4. 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 Dr. Mujica following. No treatment currently needed. He is not a candidate for microstents. 5. 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 Mujica. Poor macula detail today. Observe. 6. PVD, bilateral Floaters will persist after cataract surgery. Signs and symptoms of floaters were discussed. We reviewed the signs and symptoms of retinal tear/retinal detachment and the importance of prompt evaluation should there be increasing floaters, new flashing lights, or decreasing peripheral vision in either eye at any time. Maggie Mcginnis Amarjit, OD Soc Hx: very pleasant; worked on the [employer] x 19 yrs; then did dry [employer], now works with his in the [employer]; offered cataract Surgery OS. Copy of today's visit note was sent to Dr. Mujica. Return for PAT, ultrasound, Intraocular lens calculations, and surgery. Kaye Kent MD The documentation for this note was completed by Kaycee Rodriges, COA acting as a scribe for, and in the presence of, Dr. Kaye Mello (more content not included)... [facility] 04-14-2024 History of Present illness Narrative ASSESSMENT/PLAN: 1. Combined forms of age-related cataract of left eye - ICD9: 366.19, ICD10: H25.812 (primary diagnosis) Cataract OS>>OD; history of radiation for eyelid lymphoma OS CORNEAL TOPOGRAPHY: Less than one diopter, regular, both eyes Mac OCT: Normal foveal contour, no Subretinal fluid, no intraretinal fluid in both eyes; poor image quality OS due to dense cataract Cataract Presurgical Documentation Cataract: Both eyes (OU) Current Visual Acuity Right Eye Distance SC 20/20 Left Eye Distance SC 20/150 Glare Testing: Right Eye High 20/25 Visual Function: Padmini Lloyd states that the decline in vision from the cataract impedes his abilities as listed in the HPI, as well as other activities of daily living. Padmini Lloyd has confirmed that he is no longer able to function adequately on a day-to-day basis because of his current visual condition. Further, it is my medical opinion that the cataract is the primary cause, or at least a significantly contributory cause of his visual dysfunction. With uncomplicated cataract surgery and lens implantation, it is my expectation that his visual function and quality of life will improve, significantly. The risks, benefits, alternatives, personnel and complications of cataract surgery with lens implantation were discussed with Padmini Lloyd in detail. he appeared to understand and asked that I proceed with plans for surgery. Offered Phacoemulsification cataract extraction with insertion of intraocular lens by Dr. Kent OS only. OD when qualifies by BAT. Patient wishes to proceed with surgery. All questions were answered. A-scan to be performed pre-operatively. Referred by Dr. Mujica, Thank you for your kind referral! Allergies: see list - Aim: [place] OS. - Anesthesia: Topical with MAC - Diabetes Mellitus No - Blood thinner use Yes - Flomax/alpha-debbi? No - Able to lie supine Yes - Wants versed Yes - Happy for prayer Yes - Warned of IOL-induced photopsias Yes - Advised there is no guarantee of freedom from glasses Yes; -Discussed possible increased sensitivity and starbursting when exposed to flickering lights such as LED and fluorescent lights after cataract surgery, which usually decreases with time. - Discussed toric Intraocular lens not covered by insurance Yes $1400 per eye - Toric candidate: Offer Toric lens if patient qualifies by Ultrasound measurements. Without the toric IOL, patient was told that they will still need to wear glasses to correct residual astigmatism at all distances. Even with toric IOL, we cannot guarantee no residual astigmatism. - Contact lens use No - e-scribed eye drops -Initiate eyelid scrubs twice daily for one week prior to cataract surgery. - Literature regarding cataract and cataract extraction by phacoemulsification offered. - Discussed pros and cons of multifocal IOLs including cost and 20% risk of night glare - Discussed multifocal Intraocular lens not covered by insurance Yes $2900 per eye. - Patient understands out of pocket cost and Patient Declines having multifocal intraocular lenses. - Co-mange with Dr. Mujica 2. Combined forms of age-related cataract of right eye - ICD9: 366.19, ICD10: H25.811 Signs and symptoms of cataracts were reviewed. Offered cataract surgery when the patient develops functional disability from the cataracts and when the patient qualifies for insurance coverage of cataract surgery based on glare testing. 3. 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 4. 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 Dr. Mujica following. No treatment currently needed. He is not a candidate for microstents. 5. 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 Mujica. Poor macula detail today. Observe. 6. PVD, bilateral Floaters will persist after cataract surgery. Signs and symptoms of floaters were discussed. We reviewed the signs and symptoms of retinal tear/retinal detachment and the importance of prompt evaluation should there be increasing floaters, new flashing lights, or decreasing peripheral vision in either eye at any time. Maggie Ocasio, OD Soc Hx: very pleasant; worked on [employer] x 19 yrs; then did [employer], now works with his in the [employer]; offered cataract Surgery OS. Copy of today's visit note was sent to Dr. Mujica. Return for PAT, ultrasound, Intraocular lens calculations, and surgery. Kaye Kent MD The documentation for this note was completed by DAIJA Méndez acting as a scribe for, and in the presence of, Dr. Kaye Kent M.D. 04/14/24 The documentation recorded by the scribe accurately reflects the service I personally performed and the decisions made by me. I have confirmed and edited as necessary the relevant HPI, ophthalmic history, ROS, and the neuro exam findings as obtained by others. I have seen and examined Padmini Lloyd. I have discussed the case and the management of this patient's care with the Resident/Fellow, if applicable. I also have reviewed and agree with the assessment and plan as stated above and agree with all of its relevant components. Kaye Kent MD 04/14/24 documented in this encounter [facility] 03-03-2024 Hospital Discharge instructions Patient Education 03/03/2024 13:47:21 Dietary Guidelines to Help Prevent Kidney Stones Dietary Guidelines to Help Prevent Kidney Stones Kidney stones are deposits of minerals and salts that form inside your kidneys. Your risk of developing kidney stones may be greater depending on your diet, your lifestyle, the medicines you take, and whether you have certain medical conditions. Most people can lower their risks of developing kidney stones by following these dietary guidelines. Your dietitian may give you more specific [...] include: ?8 oz (237 mL) of milk, efieiga-qkunxumrxnkf-fodqo milk, and calcium-fortifiedfruit juice. Calcium-fortified means that [...] table and allow each person to add their own salt to taste. Use vegetable protein, [...] fish, or seafood. ?When you prepare animal proteins, cut pieces into small portion sizes. For [...] ?Have two kinds of vegetables at dinner. You may be told to limit foods that are high in a substance called oxalate. These include: ?Spinach (cooked), rhubarb, beets, sweet potatoes, and Puerto Rican chard. ?Peanuts. ?Potato chips, iranian fries, and baked potatoes with skin on. ?Nuts and nut products. ?Chocolate. If you regularly take a diuretic medicine, make sure to eat at least 1 or 2 servings of fruits or vegetables that are high in potassium each day. These include: ?Avocado. ?Banana. ?Nelson, prune, carrot, or tomato juice. ?Baked potato. ?Cabbage. ?Beans and split peas. Lifestyle Drink enough fluid to keep your urine pale yellow. This is the most important thing you can do. Spread your fluid intake throughout the day. If you drink alcohol: ?Limit how much you have to: ?0 1 drink a day for women who are not . ?0 2 drinks a day for men. ?Know how much alcohol is in your drink. [...] provider and dietitian about taking daily supplements. Depending on your health and the cause of your kidney stones, you may be told: ?Do not take high-dose supplements of vitamin C (1,000 mg a day or more). ?To take a calcium supplement. ?To take a daily probiotic supplement. ?To take other supplements such as magnesium, fish oil, or vitamin B6. Take bnco-htg-huedhtc and prescription medicines only as told by [...] sausages, meat loaves, and hot dogs. Dairy Cheeses. Beverages Regular soft drinks. Regular vegetable juice. Seasonings and condiments Seasoning blends with salt. Salad dressings. Soy sauce. Ketchup. Barbecue sauce. Other foods Canned soups. Canned pasta sauce. Casseroles. Pizza. Lasagna. Frozen meals. Potato chips. Lithuanian fries. The items listed above may not [...] with your health care provider. Document Revised: 11/01/2022 Document Reviewed: 11/01/2022 365looks Patient Education 2022 [employer]. Follow Up Care 01/17/2024 09:21:16 With:APURVA CALIX, Domenico Haywood, URL Address: [address] [place] [address]- When: Unknown Comments:6 mos [facility] 01-17-2024 Hospital Discharge instructions Patient Education 01/17/2024 08:49:52 Hematuria, Adult Hematuria, Adult Hematuria is blood [...] Follow these instructions at home: Medicines Take hfjc-pnr-seumbhk and prescription medicines only as told by your health care provider. If you were prescribed an antibiotic medicine, take it as told by your health care provider. Do not stop taking the antibiotic even if you start to feel better. Eating and drinking Drink enough fluid to keep your urine pale yellow. It is recommended that you drink 3 4 quarts (2.8 3.8 L) a day. If you have been diagnosed with an infection, drinking cranberry juice in addition to large amounts of water is recommended. Avoid caffeine, tea, and carbonated beverages. These tend to irritate the bladder. Avoid alcohol because it may irritate the prostate (in males). General instructions If you have been diagnosed [...] changes or any new symptoms. It is up to you to get the results of any tests. Ask your health care provider, or the department that is doing the test, when your results will be ready. Keep all follow-up visits. This is important. Contact a health care provider if: You develop back pain. You have a fever or chills. You have nausea or vomiting. Your symptoms do not improve after 3 days. Your symptoms get worse. Get help right away if: You develop severe vomiting and are unable to take medicine without vomiting. You develop severe [...] or the blood stops without treatment. Take cgcl-jqw-crksjwl and prescription medicines only as told by your health care provider. Drink enough fluid to keep your urine pale yellow. This information is not intended to replace advice given to you by your health care provider. Make sure you discuss any questions you have with your health care provider. Document Revised: 03/22/2021 Document Reviewed: 03/22/2021 Present[employer] Patient Education 2022 [employer]. Follow Up Care 12/17/2023 15:12:03 With:APURVA CALIX, Domenico Haywood, URL Address: [address] [address]- When: Unknown [facility] 11-26-2023 Hospital Discharge instructions Patient Education 11/26/2023 [...] as possible. If the spirometer includes a high school football coach indicator, use this to guide you [...] provider. Document Revised: 10/10/2020 Document Reviewed: 10/10/2020 Else[employer] Patient Education 2022 [employer] 11/19/2023 07:13:53 [place] - Hip Replacement Arthroplasty - Posterior Lateral Approach (Custom) [place], [place] [facility] DISCHARGE INSTRUCTIONS HIP REPLACEMENT [...] will continue at home, possible with the urgent care physician assistant of Home Health Physical Therapy or in the hospital as an outpatient. When you have become independent with the physical therapy program, this will then be discontinued as a supervised program and you will be instructed to continue the physical therapy exercises at home. DRIVING: Do NOT Drive FOLLOW-UP OFFICE VISIT: 4 weeks Postop Christian Bustos, DO [facility] [address] [place], [place] [id number] Revised: 12-25 Follow Up Care 11/01/2023 08:59:03 With:Christian Bustos Address: [address] [facility], [address] [address]- Business (1) When: Unknown Comments:Appointment has already been scheduledCall for any problems.Keep scheduled appointment [facility] 11-14-2023 Hospital Discharge instructions Patient Education 11/14/2023 [...] including vitamins, herbs, eye drops, creams, and vrzr-wjv-xnawrel medicines. Any problems you or family members [...] provider tells you to take them. Taking zjip-srz-kewvcuc medicines, vitamins, herbs, and supplements. Tests You [...] Follow these instructions at home: Medicines Take xqso-qrn-bbehtxt and prescription medicines only as told by [...] provider. Document Revised: 04/04/2022 Document Reviewed: 03/03/2021 Elsevier Patient Education 2022 [employer]. 11/14/2023 13:17:02 Urinary Tract Infection, Adult, Acxe-tx-Twzk Urinary Tract Infection, Adult A urinary tract [...] Follow these instructions at home: Medicines Take zyqh-zhq-fqipfrm and prescription medicines only as told by [...] provider. Document Revised: 03/03/2021 Document Reviewed: 03/03/2021 [employer]looks Patient Education 2022 [employer]. Follow Up Care 06/03/2023 11:44:17 With:ROSSY CHO PA-C, URL Address: [address] [place] [phone] When: Unknown Comments:pt to be called, sched cysto w/ possible UD [facility] 11-12-2023 Miscellaneous Notes Called patient to schedule his MRI orbit, [facility] has also called patient mutiple times, stated he was not going to get this done he is having Hip surgery... he told me he would call us back for appointment when everything is over with that... also stated he had a CT scan didn't think he needed this MRI FYI documented in this encounter [facility] 09-18-2023 History of Present illness Narrative Subjective [...] following the testing. documented in this encounter [facility] 09-18-2023 History of Present illness Narrative Images from the original note were not included. Radiation Oncology - Follow Up Note PATIENT NAME: Padmini Lloyd PATIENT DIAGNOSIS: 1. Prostate adenocarcinoma, initial PSA 4.66, biopsy Hampton score 3 + 3 = 6 (grade [...] 1. Prostate adenocarcinoma, initial PSA 4.66, biopsy Hampton score 3 + 3 = 6 (grade [...] Chance Crowley MD documented in this encounter [facility] 09-16-2023 History of Present illness Narrative Radiology Service Progress Note DATE OF SERVICE: [...] Value Ref Range Status 08/28/2023 67 >=60 mL/min/1.73m Final Comment: Estimated Glomerular Filtration Rate (eGFR) [...] IV SITE APPEARANCE: Clean,Dry and Intact SIGNATURE: Ana Milner RN PATIENT NAME: Padmini Lloyd DATE: September 16, 2023 TIME: 1:39 PM RADIOLOGY SERVICE PROGRESS NOTE SERVICE DATE: 09/16/2023 SERVICE TIME: 2:30 PM PATIENT IDENTITY VERIFICATION COMPLETED USING TWO (2) STANDARD IDENTIFIERS: Name and Date of confirmed by patient verbally POST EXAM PIV STATUS: Discontinued PROCEDURE TYPE: NM INJECT: PET/CT BODY SCAN. 14.4 mCi F18 FDG. No other medications given.. ADMINISTRATION TIME: 1339 PATIENT DISCHARGED TO: Ambulatory patient, left NE department area. A Diagnostic radioactive procedure has taken place, with no further precautions necessary other than routine body substance precautions. More information regarding radiation safety can be found using this link: [email or web address] SIGNATURE: RT Emiliano(R) PATIENT NAME: Padmini Lloyd DATE: September 16, 2023 TIME: 2:30 PM PAGER/CONTACT #: documented in this encounter [facility] 09-05-2023 History of Present illness Narrative Images from the original note were not included. Radiation Oncology - Follow Up Note PATIENT NAME: Padmini Lloyd PATIENT DIAGNOSIS: 1. Prostate adenocarcinoma, initial PSA 4.66, biopsy Hampton score 3 + 3 = 6 (grade [...] Abs Lymph 1.00 - 4.00 k/uL 2.89 Louisa% % 11.5 Abs [place] <0.87 k/uL 0.75 Eosin% % 0.9 Abs [...] <0.1 07/18/2020 0.11 07/15/2019 0.21 01/21/2019 0.45 [facility] Reference Range & Units 08/28/23 10:01 [...] Abs Lymph 1.00 - 4.00 k/uL 2.89 [place]% % 11.5 Abs [place] <0.87 k/uL 0.75 Eosin% % 0.9 Abs [...] Chance Crowley MD documented in this encounter [facility] 09-05-2023 Nurse Note KELLY Dao RN documented in this encounter [facility] 09-03-2023 History of Present illness Narrative Patient [...] left hip. Calcium Correction for Hypoalbuminemia from [facility] on 09/03/2023 All calculations should be rechecked [...] Comment: For additional information, please refer to [email or web address] /faq/MDD756 (This link is being provided for informational/ educational purposes only.) [facility] Result Encounter on 08/28/2023 Component Date Value Ref Range Status [facility] WBC # BLD AUTO 08/28/2023 6.53 3.70 - 11.00 k/uL Final [facility] RBC # BLD AUTO 08/28/2023 5.56 4.20 - 6.00 m/uL Final [facility] HGB BLD-MCNC 08/28/2023 16.4 13.0 - 17.0 g/dL Final [facility] HCT VFR BLD AUTO 08/28/2023 49.5 39.0 - 51.0 % Final [facility] MCV RBC AUTO 08/28/2023 89.0 80.0 - 100.0 fL Final [facility] MCH RBC QN AUTO 08/28/2023 29.5 26.0 - 34.0 pg Final [facility] MCHC RBC AUTO-MCNC 08/28/2023 33.1 30.5 - 36.0 g/dL Final [facility] RDW RBC-RTO 08/28/2023 13.2 11.5 - 15.0 % Final [facility] PLATELET # BLD AUTO 08/28/2023 210 150 - 400 k/uL Final [facility] PMV BLD AUTO 08/28/2023 8.8 (L) 9.0 - 12.7 fL Final [facility] NEUTROPHILS/LEUK NFR D AUTO 08/28/2023 42.3 % Final [facility] NEUTROPHILS # BLD AUTO 08/28/2023 2.77 1.45 - 7.50 k/uL Final [facility] LYMPHOCYTES/LEUK NFR D AUTO 08/28/2023 44.3 % Final [facility] LYMPHOCYTES # BLD AUTO 08/28/2023 2.89 1.00 - 4.00 k/uL Final [facility] MONOCYTES/LEUK NFR D AUTO 08/28/2023 11.5 % Final [facility] MONOCYTES # BLD AUTO 08/28/2023 0.75 <0.87 k/uL Final [facility] EOSINOPHIL/LEUK NFR D AUTO 08/28/2023 0.9 % Final [facility] EOSINOPHIL # BLD AUTO 08/28/2023 0.06 <0.46 k/uL Final [facility] BASOPHILS/LEUK NFR D AUTO 08/28/2023 0.5 % Final [facility] BASOPHILS [...] 74 - 99 mg/dL Final Comment: The [place] Diabetes Association (ADA) provides guidance for [...] Standards of Medical Care in Diabetes 2016, [place] [employer]. Diabetes Care. 2016.39(Suppl 1). [...] Comment: For additional information, please refer to http://Schedule C [email or web address] Loft /faq/NST597 (This link is being provided for informational/ educational purposes only.) Patient Outreach on 07/05/2023 Component Date Value Ref Range Status INR 07/17/2023 3.3 (H) Final Comment: Reference Range 0.9-1.1 Moderate-intensity Warfarin Therapy 2.0-3.0 Higher-intensity Warfarin Therapy 3.0-4.0 PT 07/17/2023 32.2 (H) 9.0 - 11.5 sec Final Comment: For additional information, please refer to http://[employer] /faq/BPB000 (This link is being provided for informational/ educational purposes only.) Patient Outreach on 06/05/2023 Component Date Value Ref Range Status INR 07/04/2023 3.2 (H) Final Comment: Reference Range 0.9-1.1 Moderate-intensity Warfarin Therapy 2.0-3.0 Higher-intensity Warfarin Therapy 3.0-4.0 PT 07/04/2023 30.9 (H) 9.0 - 11.5 sec Final Comment: For additional information, please refer to http://[employer] /faq/NNH766 (This link is being provided for informational/ educational purposes only.) External Result Encounter on 04/24/2023 Component Date Value Ref Range Status INR 04/24/2023 2.9 (H) Final Comment: Reference Range 0.9-1.1 Moderate-intensity Warfarin Therapy 2.0-3.0 Higher-intensity Warfarin Therapy 3.0-4.0 PT 04/24/2023 28.8 (H) 9.0 - 11.5 sec Final Comment: For additional information, please refer to http://[employer] /faq/UGW646 (This link is being provided for informational/ educational purposes only.) Patient Outreach on 04/04/2023 Component Date Value Ref Range Status INR 06/04/2023 2.0 (H) Final Comment: Reference Range 0.9-1.1 Moderate-intensity Warfarin Therapy 2.0-3.0 Higher-intensity Warfarin Therapy 3.0-4.0 PT 06/04/2023 20.3 (H) 9.0 - 11.5 sec Final Comment: For additional information, please refer to http://[email or web address] /faq/XTS452 (This link is being provided for informational/ educational purposes only.) External Result Encounter on 04/03/2023 Component Date Value Ref Range Status INR 04/03/2023 3.6 (H) Final Comment: Reference Range 0.9-1.1 Moderate-intensity Warfarin Therapy 2.0-3.0 Higher-intensity Warfarin Therapy 3.0-4.0 PT 04/03/2023 34.5 (H) 9.0 - 11.5 sec Final Comment: For additional information, please refer to http://[email or web address] /faq/DPT508 (This link is being provided for informational/ [...] imaging. - Protime-INR documented in this encounter [facility] 06-03-2023 Hospital Discharge instructions Patient Education 06/03/2023 [...] include: ?8 oz (237 mL) of milk, iewpgta-oxuozgdqkewd-ewpmw milk, and calcium-fortifiedfruit juice. Calcium-fortified means that [...] ?Spinach (cooked), rhubarb, beets, sweet potatoes, and Puerto Rican chard. ?Peanuts. ?Potato chips, iranian fries, and baked potatoes with skin on. ?Nuts and nut products. ?Chocolate. If you regularly take a diuretic medicine, make sure to eat at least 1 or 2 servings of fruits or vegetables that are high in potassium each day. These include: ?Avocado. ?Banana. ?Nelson, prune, carrot, or tomato juice. ?Baked potato. [...] magnesium, fish oil, or vitamin B6. Take efir-exy-hrqetoy and prescription medicines only as told by [...] Casseroles. Pizza. Lasagna. Frozen meals. Potato chips. Lithuanian fries. The items listed above may not [...] provider. Document Revised: 04/02/2022 Document Reviewed: 04/02/2022 [employer] Patient Education 2022 [employer]. Follow Up Care 05/21/2023 08:54:52 With:APURVA CALIX, Domenico Haywood, URL Address: [address] [place] [id number]- When:Within 6 Month(s) [facility] 04-29-2023 Hospital Discharge instructions Patient Education [...] treatment? Where to find more information [employer]: www.cancer.org [employer] [place]: www.auanet.org Contact a health [...] provider. Document Revised: 01/15/2022 Document Reviewed: 01/15/2022 [employer]look[employer] Patient Education 2022 [employer]. Follow Up Care 03/25/2023 13:31:08 With:APURVA CALIX, Domenico Haywood, URL Address: [facility] [place] [address]- When: Unknown Comments:Sched Cysto w/Laser prostatic stones [facility] 04-24-2023 Hospital Discharge instructions Patient Education [...] include: ?8 oz (237 mL) of milk, piuegyn-tyyxtnrpqdka-wucrq milk, and calcium-fortifiedfruit juice. Calcium-fortified means that [...] ?Spinach (cooked), rhubarb, beets, sweet potatoes, and Puerto Rican chard. ?Peanuts. ?Potato chips, iranian fries, and baked potatoes with skin on. ?Nuts and nut products. ?Chocolate. If you regularly take a diuretic medicine, make sure to eat at least 1 or 2 servings of fruits or vegetables that are high in potassium each day. These include: ?Avocado. ?Banana. ?Nelson, prune, carrot, or tomato juice. ?Baked potato. [...] magnesium, fish oil, or vitamin B6. Take bkvv-bsa-ywvbnfr and prescription medicines only as told by [...] Casseroles. Pizza. Lasagna. Frozen meals. Potato chips. Lithuanian fries. The items listed above may not [...] provider. Document Revised: 04/02/2022 Document Reviewed: 04/02/2022 [employer] Patient Education 2022 [employer]. Follow Up Care 04/24/2023 12:33:05 With:ROSSY CHO PA-C, URL Address: [address] [place] [address] When: Unknown Comments:Cont with Rachell osorio/ERIN [facility] 03-12-2023 Hospital Discharge instructions Patient Education 03/12/2023 [...] include: ?8 oz (237 mL) of milk, lrrozcq-dbrxekrsubev-smgmr milk, and calcium-fortifiedfruit juice. Calcium-fortified means that [...] ?Spinach (cooked), rhubarb, beets, sweet potatoes, and Puerto Rican chard. ?Peanuts. ?Potato chips, iranian fries, and baked potatoes with skin on. ?Nuts and nut products. ?Chocolate. If you regularly take a diuretic medicine, make sure to eat at least 1 or 2 servings of fruits or vegetables that are high in potassium each day. These include: ?Avocado. ?Banana. ?Nelson, prune, carrot, or tomato juice. ?Baked potato. [...] magnesium, fish oil, or vitamin B6. Take hifq-hef-ljfjkio and prescription medicines only as told by [...] Casseroles. Pizza. Lasagna. Frozen meals. Potato chips. Lithuanian fries. The items listed above may not [...] provider. Document Revised: 04/02/2022 Document Reviewed: 04/02/2022 [employer]looks Patient Education 2022 [employer]. Follow Up Care 02/26/2023 13:39:38 With:ROSSY CHO PA-C, URL Address: [address] [place] [address] When: Unknown Comments:sched cysto w/ [facility] 11-21-2022 History of Present illness Narrative Images from the original note were not included. Radiation Oncology - Follow Up Note PATIENT NAME: Padmini Lloyd PATIENT DIAGNOSIS: 1. Prostate adenocarcinoma, initial PSA 4.66, biopsy Hampton score 3 + 3 = 6 (grade [...] 1. Prostate adenocarcinoma, initial PSA 4.66, biopsy Hampton score 3 + 3 = 6 (grade [...] Chance Crowley MD documented in this encounter [facility] 11-14-2022 Miscellaneous Notes Orders were faxed on 11/13. Yael Dao RN [facility] requesting Creat order for MRI. Please review and sign. We will fax to [phone]. Yael Dao RN documented in this encounter [facility] 08-28-2022 Hospital Discharge instructions Patient Education 08/28/2022 [...] including vitamins, herbs, eye drops, creams, and bljn-fig-gtzcaip medicines. ?Whether you are or may be [...] 05/18/2008 Document Revised: 11/10/2019 Document Reviewed: 05/26/2018 365looks Patient Education 2020 [employer]. Follow Up Care 08/01/2021 10:21:29 With:Michael Osullivan MD, Althea Mcginnis, URO Address: [facility] [address] [place] [address]- When: Unknown [facility] 05-16-2022 History of Present illness Narrative Images from the original note were not included. Radiation Oncology - Follow Up Note PATIENT NAME: Padmini Lloyd PATIENT DIAGNOSIS: 1. Prostate adenocarcinoma, initial PSA 4.66, biopsy Hampton score 3 + 3 = 6 (grade [...] 1. Prostate adenocarcinoma, initial PSA 4.66, biopsy Hampton score 3 + 3 = 6 (grade [...] Chance Crowley MD documented in this encounter [facility] 05-03-2022 Miscellaneous Notes Orders faxed to [facility]. Yael Dao RN [facility] called requesting order for Creatinine and Xray orbits prior to MRI. Please sign if agreeable and we will fax to [facility]. Yael Dao RN documented in this encounter [facility] 02-08-2022 Hospital Discharge instructions Patient Education 02/08/2022 [...] With:Althea Rodriguez Address: [facility] [address], [place] [address]- [facility] ([facility]) When:6 weeks Comments:PVR with next office visit. [facility] 01-16-2022 Hospital Discharge instructions Patient Education 01/16/2022 [...] Follow these instructions at home: Medicines Take bdyp-wck-yrmfdqi and prescription medicines only as told by [...] or the blood stops without treatment. Take aryi-gvk-lomjywy and prescription medicines only as told by your health care provider. Drink enough fluid to keep your urine clear or pale yellow. This information is not intended to replace advice given to you by your health care provider. Make sure you discuss any questions you have with your health care provider. Document Released: 07/22/2006 Document Revised: 12/16/2019 Document Reviewed: 08/24/2017 [employer]looks Patient Education 2020 [employer]. [facility] 11-16-2021 History of Present illness Narrative Images [...] 1. Prostate adenocarcinoma, initial PSA 4.66, biopsy Hampton score 3 + 3 = 6 (grade [...] Chance Crowley MD documented in this encounter [facility] 11-08-2021 Miscellaneous Notes Jose is due for a PSA prior to his upcoming follow up with Dr. Garcia 11/16/21. Please sign pended PSA order. Call transferred to Ang. Hui to schedule lab appt. Tara Benoit LPN documented in this encounter [facility] 03-15-2021 History of Present illness Narrative Radiology Service Progress Note PATIENT NAME: Padmini Lloyd DATE OF SERVICE: March 15, 2021 TIME: 9:35 AM PATIENT IDENTITY VERIFICATION COMPLETED USING TWO (2) IDENTIFIERS: Name and Date of confirmed by patient verbally. FALL SCREENING: Has the patient had 2 falls in the last year or 1 fall with injury or currently using an Ambulatory Assistive Device (Walker, Cane, Wheelchair, Crutches, etc.)? No PATIENT GENDER DATA: Male PATIENT RELEVANT IMPLANT DATA REVIEWED: Not Applicable RADIOLOGY DEPARTMENT: CT; Exam(s) Completed: Chest PERIPHERAL IV DATA: Site assessment: Clean,Dry and Intact, Site disposition Discontinued SIGNED BY: RT Emiliano(R) March 15, 2021 9:35 AM documented in this encounter [facility] 03-15-2021 Nurse Note Radiology Service Progress Note DATE OF SERVICE: March 15, 2021 TIME: 9:08 AM PATIENT WEIGHT: 234 LBS PATIENT IDENTITY VERIFICATION COMPLETED USING TWO (2) STANDARD IDENTIFIERS: Name and Date of confirmed by patient verbally. FALL SCREENING: Has the patient had 2 falls in the last year or 1 fall with injury or currently using an Ambulatory Assistive Device (Walker, Cane, Wheelchair, Crutches, etc.)? No PATIENT GENDER DATA: Male ALLERGIES: Reviewed and unchanged CONTRAST ALLERGY: No EXAM: CT -CONTRAST INDUCED NEPHROPATHY RISK FACTORS: Patient age > 60 years CREATININE: Creatinine Date Value Ref Range Status 03/02/2021 1.12 0.73 - 1.22 mg/dL Final 12/08/2020 1.07 0.73 - 1.22 mg/dL Final eGFR-All Other Races Date Value Ref Range Status 03/02/2021 >60 . Final Comment: eGFR (Estimated GFR) Units of measure: mL/min/1.73 meters squared eGFR is derived from the reexpressed MDRD Study equation using the following parameters: serum creatinine, age, gender and race. The creatinine assay has been calibrated to be traceable to IDMS. An eGFR <60 mL/min/1.73m2 for >3 months is consistent with chronic kidney disease. Refer to KDOQI guidelines for clinical interpretation. In patients with unstable renal function, e.g. those with acute kidney injury, the eGFR may not accurately reflect actual GFR. eGFR- Date Value Ref Range Status 03/02/2021 >60 Final P.O.C.T. RESULTS: POC done: Yes, See Lab Tab March 02, 2021 TREATMENT: No Hydration needed. IV SITE: Ambulatory: A peripheral IV was started in the Right antecubital site with a Angio cath: 20 gauge. IV SITE APPEARANCE: Clean,Dry and Intact SIGNATURE: Tonya Nathan RN, BSN PATIENT NAME: Padmini Lloyd DATE: March 15, 2021 TIME: 9:08 AM [facility] 03-15-2021 Nurse Note Radiology Service Progress Note DATE OF SERVICE: March 15, 2021 TIME: 9:08 AM PATIENT WEIGHT: 234 LBS PATIENT IDENTITY VERIFICATION COMPLETED USING TWO (2) STANDARD IDENTIFIERS: Name and Date of confirmed by patient verbally. FALL SCREENING: Has the patient had 2 falls in the last year or 1 fall with injury or currently using an Ambulatory Assistive Device (Walker, Cane, Wheelchair, Crutches, etc.)? No PATIENT GENDER DATA: Male ALLERGIES: Reviewed and unchanged CONTRAST ALLERGY: No EXAM: CT -CONTRAST INDUCED NEPHROPATHY RISK FACTORS: Patient age > 60 years CREATININE: Creatinine Date Value Ref Range Status 03/02/2021 1.12 0.73 - 1.22 mg/dL Final 12/08/2020 1.07 0.73 - 1.22 mg/dL Final eGFR-All Other Races Date Value Ref Range Status 03/02/2021 >60 . Final Comment: eGFR (Estimated GFR) Units of measure: mL/min/1.73 meters squared eGFR is derived from the reexpressed MDRD Study equation using the following parameters: serum creatinine, age, gender and race. The creatinine assay has been calibrated to be traceable to IDMS. An eGFR <60 mL/min/1.73m2 for >3 months is consistent with chronic kidney disease. Refer to KDOQI guidelines for clinical interpretation. In patients with unstable renal function, e.g. those with acute kidney injury, the eGFR may not accurately reflect actual GFR. eGFR- Date Value Ref Range Status 03/02/2021 >60 Final P.O.C.T. RESULTS: POC done: Yes, See Lab Tab March 02, 2021 TREATMENT: No Hydration needed. IV SITE: Ambulatory: A peripheral IV was started in the Right antecubital site with a Angio cath: 20 gauge. IV SITE APPEARANCE: Clean,Dry and Intact SIGNATURE: Tonya Nathan RN, BSN PATIENT NAME: Padmini Lloyd DATE: March 15, 2021 TIME: 9:08 AM documented in this encounter [facility] Evaluation + Plan note Future Appointments Appointment Date:08/07/2022 09:15:00 AM Scheduled Provider:Althea Rodriguez Jr., MD Location:[facility] Appointment Type:URO Office Visit Diagnostic Tests PendingUrine Culture 12/29/21 [facility] Evaluation + Plan note Future Appointments Appointment Date:08/07/2022 09:15:00 AM Scheduled Provider:Althea Rodriguez Jr., MD Location:[facility] Appointment Type:URO Office Visit [facility] Evaluation + Plan note Future Appointments Appointment Date:08/07/2022 09:15:00 AM Scheduled Provider:Althea Rodriguez Jr., MD Location:[facility] Appointment Type:URO Office Visit Diagnostic Tests PendingUrine Culture 01/04/22 [facility] Evaluation + Plan note Future Appointments Appointment Date:08/07/2022 09:15:00 AM Scheduled Provider:Althea Rodriguez Jr., MD Location:[facility] Appointment Type:URO Office Visit Diagnostic Tests PendingUrine Culture 03/28/22 [facility] Evaluation + Plan note Future Appointments Appointment Date:09/03/2023 09:00:00 AM Scheduled Provider:ROSSY CHO PA-C Location:[facility] Appointment Type:URO Office Visit Diagnostic Tests PendingPSA Total 08/28/22 [facility] Evaluation + Plan note Future Appointments Appointment Date:09/03/2023 09:00:00 AM Scheduled Provider:ROSSY CHO PA-C Location:[facility] Appointment Type:URO Office Visit Diagnostic Tests PendingUrine Culture 08/28/22 [facility] Evaluation + Plan note Future Appointments Appointment Date:09/03/2023 09:00:00 AM Scheduled Provider:ROSSY CHO PA-C Location:[facility] Appointment Type:URO Office Visit [facility] Evaluation + Plan note Future Appointments Appointment Date:09/03/2023 09:00:00 AM Scheduled Provider:ROSSY [facility] PA-C [facility] Office Visit Diagnostic Tests PendingUrine Culture 02/12/23 [facility] Evaluation + Plan note Future Appointments Appointment Date:04/29/2023 07:30:00 AM Scheduled Provider:Domenico GIPSON MD Location:[facility] Appointment Type:URO Procedure 15 min Appointment Date:09/03/2023 09:00:00 AM Scheduled Provider:ROSSY CHO PA-C [facility] Type:[facility]O Office Visit [facility] Evaluation + Plan note Future Appointments Appointment Date:04/29/2023 07:30:00 AM Scheduled Provider:Domenico GIPSON MD Location:[facility] Appointment Type:URO Procedure 15 min Appointment Date:09/03/2023 09:00:00 AM Scheduled Provider:ROSSY CHO PA-C [facility] Type:URO Office Visit Diagnostic Tests PendingUrine Culture 04/24/23 [facility] Evaluation + Plan note Future Appointments Appointment Date:06/03/2023 11:15:00 AM Scheduled Provider:Domenico GIPOSN MD Location:[facility] [place] Appointment Type:URO Office Visit Appointment Date:09/03/2023 09:00:00 AM Scheduled Provider:ROSSY [facility] PA-C [facility] Office Visit [facility] Evaluation + Plan note Future Appointments Appointment Date:11/26/2023 08:00:00 AM Scheduled Provider:Domenico GIPSON MD Location:[facility] [place] Appointment Type:URO Office Visit [facility] Evaluation + Plan note Future Appointments Appointment Date:11/14/2023 12:40:00 PM Scheduled Provider:ROSSY CHO PA-C Location:[facility] Appointment Type:URO Office Visit Appointment Date:11/26/2023 07:30:00 AM Scheduled Provider: Location:[facility] Appointment Type:Surgery FT Diagnostic Tests PendingUrine Culture 11/11/23 [facility] Evaluation + Plan note Future Appointments Appointment Date:11/14/2023 12:40:00 PM Scheduled Provider:ROSSY CHO PA-C Location:[facility] Appointment Type:URO Office Visit Appointment Date:11/26/2023 07:30:00 AM Scheduled Provider: Location:[facility] Appointment Type:Surgery FT [facility] Evaluation + Plan note Future Appointments Appointment Date:11/26/2023 07:30:00 AM Scheduled Provider: Location:[facility] Appointment Type:Surgery FT [facility] Evaluation + Plan note Future Appointments Appointment Date:11/26/2023 07:30:00 AM Scheduled Provider: Location:[facility] Appointment Type:Surgery FT Diagnostic Tests PendingUrine Culture 11/14/23 [facility] Evaluation + Plan note Future Appointments Appointment Date:02/18/2024 09:00:00 AM Scheduled Provider: Location:[facility] Appointment Type:URO Nurse Visit Appointment Date:03/03/2024 01:15:00 PM Scheduled Provider:Domenico GIPSON MD Location:[facility] Appointment Type:URO Office Visit [facility] Evaluation + Plan note Future Appointments Appointment Date:03/03/2024 01:15:00 PM Scheduled Provider:Domenico GIPSON MD Location:[facility] [place] Appointment Type:URO Office Visit [facility] Evaluation + Plan note Future Appointments Appointment Date:06/30/2024 01:45:00 PM Scheduled Provider:Domenico GIPSON MD Location:[facility] [place] Appointment Type:URO Office Visit [facility] [place] Evaluation + Plan note Future Appointments Appointment Date:01/04/2025 10:15:00 AM Scheduled Provider:Domenico GIPSON MD Location:[facility] [place] Appointment Type:URO Office Visit [facility] Evaluation + Plan note Future Appointments Appointment Date:03/15/2025 08:00:00 AM Scheduled Provider:Domenico GIPSON MD Location:[facility] [place] Appointment Type:URO Office Visit [facility] Evaluation + Plan note Future Appointments Appointment Date:09/27/2025 08:15:00 AM Scheduled Provider:Domenico GIPSON MD Location:[facility] [place] Appointment Type:URO Office Visit Future Scheduled TestsPSA Total 09/05/25 [facility] Evaluation note Diagnosis History of prostate cancer- Primary Personal history of malignant neoplasm of prostate [facility] 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 neoplasm of orbit [facility] Diagnosis 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 neoplasm of orbit [facility] Diagnosis 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 neoplasm of orbit Malignant neoplasm of prostate (HCC) Malignant neoplasm of prostate [facility] Diagnosis History of prostate cancer- Primary Personal history of malignant neoplasm of prostate [facility] Diagnosis 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 neoplasm of orbit [facility] Diagnosis 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 neoplasm of orbit History of prostate cancer Personal history of malignant neoplasm of prostate Lung nodule Solitary pulmonary nodule [facility] Work Phone: Evaluation note* Diagnosis History of prostate cancer- Primary Personal history of malignant neoplasm of prostate 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) Hypercalcemia [facility]* Diagnosis Hypercalcemia- Primary 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) Thoracic aortic ectasia (I77.810) Thoracic aortic ectasia Lumbar back pain with radiculopathy affecting left lower extremity Lumbar myelopathy (CMS/HCC) Atrophy of quadriceps femoris muscle Other idiopathic scoliosis, thoracolumbar region [facility] Primary hyperparathyroidism (CMS/HCC)- Primary Primary hyperparathyroidism Parathyroid abnormality (CMS/HCC) Hypercalcemia [facility] Pain of left hip- Primary documented in this encounter [facility] note* Diagnosis Combined forms of age-related cataract of left eye- Primary Other and combined forms of senile cataract Combined forms of age-related cataract of right eye Other and combined forms of senile cataract Lymphoma of ocular adnexa (HCC) Other malignant lymphomas of lymph nodes of head, face, and neck 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, left [facility]* Diagnosis 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) Combined forms of age-related cataract of left eye Other and combined forms of senile cataract documented in this encounter [facility] note* Diagnosis Pre-op evaluation- Primary Preoperative examination, unspecified Primary hypertension Unspecified essential hypertension Prostate cancer (HCC) Malignant neoplasm of prostate Deep vein thrombosis (DVT) of distal vein of lower extremity, unspecified chronicity, unspecified laterality (HCC) Lymphoma of ocular adnexa (HCC) Other malignant lymphomas of lymph nodes of head, face, and neck Obesity (BMI 30.0-34.9) Obesity, unspecified Combined forms of age-related cataract of left eye Other and combined forms of senile cataract * Assessment & Plan Note - Patricia Brand APRN.PARALEGAL ASSISTANT - 05/05/2024 1:20 PM EDT Associated Problem(s): Obesity (BMI 30.0-34.9) Assessment: Body mass index is 32.59 kg/m . 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 Pt states had 15 radiation treatments at [facility] Left eye 3-4 years ago * Assessment & Plan Note - Patricia Brand APRN.CNP - 05/05/2024 1:18 PM EDT Associated Problem(s): Deep vein thrombosis (DVT) (HCC) Assessment: H/o of recurrent DVT & PE Stable on Coumadin Follows with PCP * Assessment & Plan Note - Patricia Brand APRN.REJI - 05/05/2024 1:16 PM EDT Associated Problem(s): Prostate cancer (HCC) Assessment: s/p Brachytherapy No known recurrence * Assessment & Plan Note - Patricia Brand APRN.CNP - 05/05/2024 1:03 PM EDT Associated Problem(s): HTN (hypertension) Assessment: Stable on medication 141/83 in office today [facility]s with [facility]CP [facility] Combined forms of age-related cataract of left eye Other and combined forms of senile cataract Combined forms of age-related cataract of right eye Other and combined forms of senile cataract Pre-op evaluation- Primary Preoperative examination, unspecified Primary hypertension Unspecified essential hypertension Prostate cancer (HCC) Malignant neoplasm of prostate Deep vein thrombosis (DVT) of distal vein of lower extremity, unspecified chronicity, unspecified laterality (HCC) Lymphoma of ocular adnexa (HCC) Other malignant lymphomas of lymph nodes of head, face, and neck Obesity (BMI 30.0-34.9) Obesity, unspecified Combined forms of age-related cataract of left eye Other and combined forms of senile cataract [facility] Lung nodules Other nonspecific abnormal finding of lung field Pre-op evaluation- Primary Preoperative examination, unspecified Primary hypertension Unspecified essential hypertension Prostate cancer (HCC) Malignant neoplasm of prostate Deep vein thrombosis (DVT) of distal vein of lower extremity, unspecified chronicity, unspecified laterality (HCC) Lymphoma of ocular adnexa (HCC) Other malignant lymphomas of lymph nodes of head, face, and neck Obesity (BMI 30.0-34.9) Obesity, unspecified Combined forms of age-related cataract of left eye Other and combined forms of senile cataract [facility] History of parathyroidectomy- Primary [facility] Diagnosis Presence of left artificial hip joint- Primary documented in this encounter [facility]* Diagnosis Benign essential hypertension (CMS/HCC)- Primary Essential hypertension, benign Chronic deep vein thrombosis (DVT) of calf muscle vein of right lower extremity (CMS/HCC) Anticoagulated Encounter for long-term (current) use of anticoagulants documented in this encounter [facility]* Diagnosis S/P total left hip arthroplasty- Primary documented in this encounter [facility]* Diagnosis Pre-op evaluation- Primary Preoperative examination, unspecified Primary hypertension Unspecified essential hypertension Prostate cancer (HCC) Malignant neoplasm of prostate Deep vein thrombosis (DVT) of distal vein of lower extremity, unspecified chronicity, unspecified laterality (HCC) Lymphoma of ocular adnexa (HCC) Other malignant lymphomas of lymph nodes of head, face, and neck Obesity (BMI 30.0-34.9) Obesity, unspecified After-cataract of left eye with vision obscured- Primary Pseudophakia of left eye Lens replaced by other means Lymphoma of ocular adnexa (HCC) Other malignant lymphomas of lymph nodes of head, face, and neck Nuclear senile cataract of right eye 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 [facility] Chronic deep vein thrombosis (DVT) of calf muscle vein of right lower extremity (CMS/HCC) Benign essential hypertension (CMS/HCC) Essential hypertension, benign documented in this encounter [facility]* Diagnosis Encounter for Medicare annual wellness exam- Primary Advance directive in chart Encounter for screening for other disorder Screening for alcohol problem Screening for alcoholism Benign essential hypertension Essential hypertension, benign Hypertensive nephropathy Unspecified hypertensive kidney disease with chronic kidney disease stage I through stage IV, or unspecified Stage 3a chronic kidney disease (CMS-HCC) Screening for diabetes mellitus (DM) Screening for diabetes mellitus Screening for lipid disorders Malignant neoplasm of prostate (HCC) Malignant neoplasm of prostate Cardiovascular event risk documented in this encounter [facility]* Diagnosis Benign essential hypertension Essential hypertension, benign [facility] N[facility] No data available for this section [facility] Discharge instructions No data available for this section [facility] Discharge instructions Additional Instructions DISCHARGE INSTRUCTIONS [...] one week. -Get blood work drawn at [facility] [address] Cook[address] Work Phone: Progress note No data available for this section [facility] reason for referral (narrative)* Diagnostic Procedure Only (Routine) - Pending Review Specialty Diagnoses / Procedures Referred By Chaka ibrahim Referred To Contact XR IMAGING Diagnoses Malignant neoplasm of left orbit (HCC) Procedures XR EYE FOREIGN BODY 2V RADIOLOGIC EXAMINATION EYE DETECT FOREIGN BODY Marko Garcia MD [address] [place] [address] [place] [address] Xr Imaging Referral ID Status Reason Start Date Expiration Date Visits Requested Visits Authorized [id number] Pending Review Auto-Generat ed Referral 05/03/2022 06/01/2023 [address] 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) Procedures NM PET/CT SKULL-THIGH SUBSEQUENT PET IMAGING CT ATTENUATION SKULL BASE MID-THIGH Marko Garcia MD [address] [place] [address] [place] [address] Molecular & Functional Imaging [address] [place] [address] Referral ID Status Reason Start Date Expiration Date Visits Requested Visits Authorized [id number] Authorized Auto-Generat ed Referral 09/05/2023 10/04/2024 1 1 [facility] Diagnostic Procedure Only (Routine) - Closed Specialty Diagnoses / Procedures Referred By Chaka ibrahim Referred To Contact MOLECULAR & FUNCTIONAL IMAGING Diagnoses 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) Procedures NM PET/CT SKULL-THIGH SUBSEQUENT PET IMAGING CT ATTENUATION SKULL BASE MID-THIGH Marko Garcia MD [address] [place] [address] [place] [address] Molecular & Functional Imaging [address] [place] [address] Referral ID Status Reason Start Date Expiration Date V isits Requested Visits Authorized [id number] Closed Auto-Generate d Referral 09/05/2023 10/04/2024 1 1 [facility] Summary Purpose Family History No Family History [...] Unknown Myocardial infarction Unknown brother Leukemia Unknown mother Hypertension Unknown Advance Directives No Advanced Directives Records Found Advance Directive Response Recorded Date/ Time Advance Directives No November 22 1:13pm Documents on File Type Date Recorded Patient Employment Instructional Associate Expl anation Advance Directives and Living Will 11/30/2021 2021-11-23 Power Of Cancer Registry Manager Advance Directives and Living Will 11/30/2021 2021-11-23 Living Wi ll Advance Directive Response Recorded Date/ Time Advance Directives No November 22 12:13pm Reason for Referral Specialty Diagnoses / Procedures Referred By Chaka ibrahim Referred To Contact MR IMAGING Diagnoses Malignant neoplasm of left orbit (HCC) Procedures MRI ORBIT WO/W IVCON MRI ORBIT FACE & NECK W/O & W/CONTRAST Marko Mittal MD [address] [place] [address] [place] [address] Mr Imaging Referral ID Status Reason Start Date Expiration Date Visits Requested Visits Authorized [id number] Pending Review Auto-Generat ed Referral 11/16/2021 12/16/2022 1 1 Referral ID Status Reason Start Date Expiration Date Visits Requested Visits Authorized [id number] Pending Review Auto-Generat ed Referral 06/15/2023 1 1 Referral ID Status Reason Start Date Expiration Date Visits Requested Visits Authorized [id number] Pending Review Auto-Generat ed Referral 11/21/2022 12/21/2023 1 1 Specialty Diagnoses / Procedures Referred By Contac t Referred To Contact MR IMAGING Diagnoses Pain of left hip Procedures MRI HIP WO/W IVCON LEFT MRI ANY JT LOWER EXTREM W/O & W/CONTRAST Marko Mittal MD [address] [place] [address] [place] [address] Mr Imaging [facility] Referral ID Status Reason Start Date Expiration Date Visits Requested Visits Authorized [id number] Pending Review Auto-Generat ed Referral 09/18/2023 10/17/2024 1 1 Specialty Diagnoses / Procedures Referred By Contac t Referred To Contact CT IMAGING Diagnoses Lung nodules Procedures CT CHEST W IVCON CAT SCAN OF CHEST CONTRAST Isacc Romero MD [address] [place] [address] [place] [address] Ct Imaging [facility] Referral ID Status Reason Start Date Expiration Date V isits Requested Visits Authorized [id number] Closed Auto-Generate d Referral 03/02/2021 04/01/2022 1 1 Chief Complaint and Reason for Visit Chief Complaint Bladder Neck Contrac ture, Hx Prostate Cancer, Ambrosio Chief Complaint Bladder Neck Contrac ture, Hx Prostate Cancer, Ambrosio Bladder Neck Contracture, Hx Prostate Cancer, Ambrosio Chief Complaint E21.0 Chief Complaint 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 Chief Complaint 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 e21.0 Chief Complaint BPH w/ Luts, Prostat e Calcification, Bladder Neck Chief Complaint BPH w/ Luts, Prostat e Calcification, Bladder Neck e21 BPH w/ Luts, Prostate Calcification, Bladder Neck Chief Complaint BPH w/ Luts, Prostat e Calcification, Bladder Neck E21.0 Z98.890 Z90.89 Additional Source Comments (unrecognized sect ion and content) No Status Records FoundNo Status Records FoundNo Status Records FoundNo Status Records FoundNo Status Records FoundNo Status Records FoundNo Status Records FoundNo Status Records FoundNo Status Records Found INFORMATION SOURCE (unrecogn ized section and content) DATE CREATED AUTHOR 07/16/2019 [facility] DATE CREATED AUTHOR AUTHOR'S ORGANIZ ATION 12/22/2021 [facility]ical Specialist DATE CREATED AUTHOR AUTHOR'S ORGANIZ ATION 11/16/2022 [facility] DATE CREATED AUTHOR AUTHOR'S ORGANIZ ATION 08/19/2024 [facility] DATE CREATED AUTHOR AUTHOR'S ORGANIZ ATION 12/08/2024 [facility] DATE CREATED AUTHOR AUTHOR'S ORGANIZ ATION 01/06/2025 [facility] Specialists EPIC DATE CREATED AUTHOR AUTHOR'S ORGANIZ ATION 03/15/2025 [facility] DATE CREATED AUTHOR AUTHOR'S ORGANIZ ATION 03/19/2025 [facility] DATE CREATED AUTHOR AUTHOR'S ORGANIZ ATION 03/29/2025 [facility] Source Comments (unrecognize d section and content) In the event this informatio n is protected by the Federal Confidentiality of Alcohol and Drug Abuse Patient Records regulations: The Federal rules restrict any use of the information to criminally investigate or prosecute any alcohol or drug abuse patient.[facility] the event this information is protected by the Federal Confidentiality of Alcohol and Drug Abuse Patient Records regulations: The Federal rules restrict any use of the information to criminally investigate or prosecute any alcohol or drug abuse patient.[facility] the event this information is protected by the Federal Confidentiality of Alcohol and Drug Abuse Patient Records regulations: The Federal rules restrict any use of the information to criminally investigate or prosecute any alcohol or drug abuse patient.[facility] the event this information is protected by the Federal Confidentiality of Alcohol and Drug Abuse Patient Records regulations: The Federal rules restrict any use of the information to criminally investigate or prosecute any alcohol or drug abuse patient.[facility] the event this information is protected by the Federal Confidentiality of Alcohol and Drug Abuse Patient Records regulations: The Federal rules restrict any use of the information to criminally investigate or prosecute any alcohol or drug abuse patient.[facility] the event this information is protected by the Federal Confidentiality of Alcohol and Drug Abuse Patient Records regulations: The Federal rules restrict any use of the information to criminally investigate or prosecute any alcohol or drug abuse patient.[facility] the event this information is protected by the Federal Confidentiality of Alcohol and Drug Abuse Patient Records regulations: The Federal rules restrict any use of the information to criminally investigate or prosecute any alcohol or drug abuse patient.[facility] the event this information is protected by the Federal Confidentiality of Alcohol and Drug Abuse Patient Records regulations: The Federal rules restrict any use of the information to criminally investigate or prosecute any alcohol or drug abuse patient.[facility] the event this information is protected by the Federal Confidentiality of Alcohol and Drug Abuse Patient Records regulations: The Federal rules restrict any use of the information to criminally investigate or prosecute any alcohol or drug abuse patient.[facility] the event this information is protected by the Federal Confidentiality of Alcohol and Drug Abuse Patient Records regulations: The Federal rules restrict any use of the information to criminally investigate or prosecute any alcohol or drug abuse patient.[facility] the event this information is protected by the Federal Confidentiality of Alcohol and Drug Abuse Patient Records regulations: The Federal rules restrict any use of the information to criminally investigate or prosecute any alcohol or drug abuse patient.[facility] the event this information is protected by the Federal Confidentiality of Alcohol and Drug Abuse Patient Records regulations: The Federal rules restrict any use of the information to criminally investigate or prosecute any alcohol or drug abuse patient.[facility] the event this information is protected by the Federal Confidentiality of Alcohol and Drug Abuse Patient Records regulations: The Federal rules restrict any use of the information to criminally investigate or prosecute any alcohol or drug abuse patient.[facility] the event this information is protected by the Federal Confidentiality of Alcohol and Drug Abuse Patient Records regulations: The Federal rules restrict any use of the information to criminally investigate or prosecute any alcohol or drug abuse patient.[facility] the event this information is protected by the Federal Confidentiality of Alcohol and Drug Abuse Patient Records regulations: The Federal rules restrict any use of the information to criminally investigate or prosecute any alcohol or drug abuse patient.[facility] the event this information is protected by the Federal Confidentiality of Alcohol and Drug Abuse Patient Records regulations: The Federal rules restrict any use of the information to criminally investigate or prosecute any alcohol or drug abuse patient.[facility] the event this information is protected by the Federal Confidentiality of Alcohol and Drug Abuse Patient Records regulations: The Federal rules restrict any use of the information to criminally investigate or prosecute any alcohol or drug abuse patient.[facility] Reason for Visit (unrecogniz ed section and content) Reason Comments Orders Reason Comments Lymphoma FOLLOW UP Reason Comments Orders Reason Comments Lymphoma Reason Comments Lab Orders Reason Comments Prostate Cancer Lymphoma Reason Comments Leg Pain Reason Comments Hypercalcemia Specialty Diagnoses / Procedures Referred By Contac t Referred To Contact Otolaryngology Diagnoses Parathyroid abnormality (CMS/HCC) Procedures MI OFFICE/OUTPATIENT NEW HIGH MDM 60 MINUTES Jarred Arias MD [address] [place] [address] Juan Cook, [address] [place] [address] Referral ID Status Reason Start Date Expiration Date V isits Requested Visits Authorized [id number] Closed Specialty Services Required 09/05/2023 03/03/2024 1 1 Reason Comments Prostate Cancer Reason Comments Appointment Confirmation Reason Comments Cataract Evaluation OU Reason Comments Schedule Surgery Reason Comments Radiology NM Specialty Diagnoses / Procedures Referred By Contac t Referred To Contact MOLECULAR & FUNCTIONAL IMAGING Diagnoses 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) Procedures NM PET/CT SKULL-THIGH SUBSEQUENT PET IMAGING CT ATTENUATION SKULL BASE MID-THIGH Marko Garcia MD [address] [place] [address] [place] [address] Molecular & Functional Imaging [address] [place] [address] Referral ID Status Reason Start Date Expiration Date V isits Requested Visits Authorized [id number] Closed Auto-Generate d Referral 09/05/2023 10/04/2024 1 1 Reason Comments Anesthesia Consult Reason Comments Pre-Op Exam Reason Comments Radiology CT Specialty Diagnoses / Procedures Referred By Contac t Referred To Contact CT IMAGING Diagnoses Lung nodules Procedures CT CHEST W IVCON CAT SCAN OF CHEST CONTRAST Isacc Romero MD [address] [place] [address] [place] [address] Referral ID Status Reason Start Date Expiration Date V isits Requested Visits Authorized [id number] Closed Auto-Generate d Referral 03/02/2021 04/01/2022 1 1 Reason Comments 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 Reason Comments Post-op L RA PRATEEK 11/26/23 FTM C Reason Comments Follow-up L RA PRATEEK 11/26/23 FTM C Reason Comments Posterior Capsule Opacification Evaluati on Reason Comments Annual Exam Care Teams (unrecognized sec tion and content) Commercial Accountant Relationship Specialty Start Date End Date Jarred Arias [address] [place] [address] (Fax) PCP - General Family Practice 10/23/16 Commercial Accountant Relationship Specialty Start Date End Date Jarred Arias [address] [place] [address] (Fax) PCP - General Family Practice 10/23/16 Commercial Accountant Relationship Specialty Start Date End Date Jarred Arias MD [address] [place] [address] (Fax) PCP - General Family Medicine 10/23/16 Commercial Accountant Relationship Specialty Start Date End Date Jarred Arias MD [address] [place] [address] (Fax) PCP - General Family Medicine 10/23/16 Commercial Accountant Relationship Specialty Start Date End Date Jarred Arias MD [address] [place] [address] (Fax) PCP - General Family Medicine 10/23/16 Commercial Accountant Relationship Specialty Start Date End Date Jarred Arias MD [address] [place] [address] (Fax) PCP - General Family Medicine 10/23/16 Commercial Accountant Relationship Specialty Start Date End Date Jarred Arias MD [address] [place] [address] (Fax) PCP - General Family Medicine 10/23/16 Team Status: Active Member Role Status Dates Jarred Arias MD Primary Care Provider Active Team Status: Inactive Member Role Status Dates Domenico Gipson MD Attending Provider Active Jarred Arias MD Primary Care Provider Active Commercial Accountant Relationship Specialty Start Date End Date Jarred Arias MD [address] [place] [address] (Fax) PCP - General Family Medicine 10/23/16 Commercial Accountant Relationship Specialty Start Date End Date Jarred Arias MD [address] [place] [address] (Fax) PCP - ACO Reach 12/27/22 Jarred Arias MD [address] [place] [address] (Fax) PCP - General Family Medicine 01/03/23 Kellie Odom LPN Licensed Practical Nurse Family Medicine 01/03/23 Commercial Accountant Relationship Specialty Start Date End Date Jarred Arias MD [address] [place] [address] (Fax) PCP - ACO Reach 12/27/22 Jarred Arias MD [address] [place] [address] (Fax) PCP - General Family Medicine 01/03/23 Kellie Odom LPN Licensed Practical Nurse Family Medicine 01/03/23 Team Status: Inactive Member Role Status Dates Jarred Arias MD Primary Care Provider Active Start: September 23, 2023 End: September 23, 2023 Juan Cook DO Attending Provider Active S tart: September 23, 2023 End: September 23, 2023 Commercial Accountant Relationship Specialty Start Date End Date Jarred Arias MD [address] [facility] [place] [address] (Fax) PCP - General Family Medicine 10/23/16 [...] October 29, 2023 End: October 29, 2023 Commercial Accountant Relationship Specialty Start Date End Date Jarred Arias MD [address] [place] [address] (Fax) PCP - General Family Medicine 10/23/16 Team Status: Inactive Member Role Status Dates Jarerd Arias MD Primary Care Provider Active Start: January 29, 2024 End: January 29, 2024 Domenico Gipson MD Attending Provider Active St art: January 29, 2024 End: January 29, 2024 Team Status: Inactive Member Role Status Dates Jarred Arias MD Primary Care Provider Active Start: January 31, 2024 End: January 31, 2024 Juan Cook DO Attending Provider Active S tart: January 31, 2024 End: January 31, 2024 Team Status: Inactive Member Role Status Dates Jarred Arias MD Primary Care Provider Active Start: February 13, 2024 End: February 13, 2024 Domenico Gipson MD Attending Provider Active St art: February 13, 2024 End: February 13, 2024 Commercial Accountant Relationship Specialty Start Date End Date Jarred Arias MD [address] [place] [facility] [place] [address] (Fax) PCP - General Family Medicine 10/23/16 Commercial Accountant Relationship Specialty Start Date End Date Jarred Arias MD [address] [place] [facility] [place] [address] (Fax) PCP - General Family Medicine 10/23/16 Commercial Accountant Relationship Specialty Start Date End Date Jarred Arias MD [address] [place] [facility] [address] (Fax) PCP - General Family Medicine 10/23/16 Commercial Accountant Relationship Specialty Start Date End Date Jarred Arias MD [address] [place] [facility] [place] [address] (Fax) PCP - General Family Medicine 10/23/16 Commercial Accountant Relationship Specialty Start Date End Date Jarred Arias MD [address] [place] [address] (Fax) PCP - General Family Medicine 10/23/16 Team Status: Inactive Member Role Status Dates Jarred Arias MD Primary Care Provider Active Start: May 06, 2024 End: May 06, 2024 Juan Cook DO Attending Provider Active S tart: May 06, 2024 End: May 06, 2024 Commercial Accountant Relationship Specialty Start Date End Date Jarred Arias MD [address] [place] [address] (Fax) PCP - General Family Medicine 10/23/16 Commercial Accountant Relationship Specialty Start Date End Date Jarred Arias MD [address] [place] [address] (Fax) PCP - ACO Reach 12/27/22 Jarred Arias MD [address] [place] [address] (Fax) PCP - General Family Medicine 01/03/23 Kellie Odom LPN Licensed Practical Nurse Family Medicine 01/03/23 Commercial Accountant Relationship Specialty Start Date End Date Jarred Arias MD [address] [place] [address] (Fax) PCP - ACO Reach 12/27/22 Jarred Arias MD [address] [place] [address] (Fax) PCP - General Family Medicine 01/03/23 Kellie Odom LPN Licensed Practical Nurse Family Medicine 01/03/23 Commercial Accountant Relationship Specialty Start Date End Date Jarred Arias MD [address] [place] [address] (Fax) PCP - ACO Reach 12/27/22 Jarred Arias MD [address] [place] [address] (Fax) PCP - General Family Medicine 01/03/23 Kellie Odom LPN Licensed Practical Nurse Family Medicine 01/03/23 Commercial Accountant Relationship Specialty Start Date End Date Jarred Arias MD [address] [place] [address] (Fax) PCP - ACO Reach 12/27/22 Jarred Arias MD [address] [place] [address] (Fax) PCP - General Family Medicine 01/03/23 Kellie Odom LPN Licensed Practical Nurse Family Medicine 01/03/23 Commercial Accountant Relationship Specialty Start Date End Date Jarred Arias MD [address] [place] [address] (Fax) PCP - ACO Reach 12/27/22 Jarred Arias MD [address] [place] [address] (Fax) PCP - General Family Medicine 01/03/23 Kellie Odom LPN Licensed Practical Nurse Family Medicine 01/03/23 Commercial Accountant Relationship Specialty Start Date End Date Jarred Arias MD [address] [place] [address] (Fax) PCP - ACO Reach 12/27/22 Jarred Arias MD [address] [place] [address] (Fax) PCP - General Family Medicine 01/03/23 Kellie Odom LPN Licensed Practical Nurse Family Medicine 01/03/23 Commercial Accountant Relationship Specialty Start Date End Date Jarred Arias MD [address] [place] [address] (Fax) PCP - ACO Reach 12/27/22 Jarred Arias MD [address] [place] [address] (Fax) PCP - General Family Medicine 01/03/23 Kellie Odom LPN Licensed Practical Nurse Family Medicine 01/03/23 Commercial Accountant Relationship Specialty Start Date End Date Jarred Arias MD [address] [place] [address] (Fax) PCP - ACO Reach 12/27/22 Jarred Arias MD [address] [place] [address] (Fax) PCP - General Family Medicine 01/03/23 Kellie Odom LPN Licensed Practical Nurse Family Medicine 01/03/23 Commercial Accountant Relationship Specialty Start Date End Date Jarred Arias MD [address] [place] [address] (Fax) PCP - ACO Reach 12/27/22 Jarred Arias MD [address] [place] [address] (Fax) PCP - General Family Medicine 01/03/23 Kellie Odom LPN Licensed Practical Nurse Family Medicine 01/03/23 Chelsea Schrader LPN 11/03/24 Commercial Accountant Relationship Specialty Start Date End Date Jarred Arias MD [address] [place] [address] (Fax) PCP - General Family Medicine 10/23/16 Commercial Accountant Relationship Specialty Start Date End Date Jarred Arias MD [address] [place] [address] (Fax) PCP - ACO Reach 12/27/22 Jarred Arias MD [address] [place] [address] (Fax) PCP - General Family Medicine 01/03/23 Kellie Odom LPN Licensed Practical Nurse Family Medicine 01/03/23 Chelsea Schrader LPN 11/03/24 Commercial Accountant Relationship Specialty Start Date End Date Jarred Arias MD [address] [place] [address] (Fax) PCP - ACO Reach 12/27/22 Jarred Arias MD [address] [place] [address] (Fax) PCP - General Family Medicine 01/03/23 Kellie Odom LPN Licensed Practical Nurse Family Medicine 01/03/23 Chelsea Schrader LPN 11/03/24 Commercial Accountant Relationship Specialty Start Date End Date Jarred Arias MD [address] [place] [address] (Fax) PCP - ACO Reach 12/27/22 Jarred Arias MD [address] [place] [address] (Fax) PCP - General Family Medicine 01/03/23 Kellie Odom LPN Licensed Practical Nurse Family Medicine 01/03/23 Chelsea Schrader LPN [address] [place] [address] 11/03/24 Commercial Accountant Relationship Specialty Start Date End Date Jarred Arias MD [address] [place] [address] (Fax) PCP - ACO Reach 12/27/22 Jarred Arias MD [address] [place] [address] (Fax) PCP - General Family Medicine 01/03/23 Kellie Odom LPN Licensed Practical Nurse Family Medicine 01/03/23 Chelsea Schrader LPN 11/03/24 Commercial Accountant Relationship Specialty Start Date End Date Jarred Arias MD [address] [place] [address] (Fax) PCP - ACO Reach 12/27/22 Jarred Arias MD [address] [place] [address] (Fax) PCP - General Family Medicine 01/03/23 Kellie Odom LPN [address] [place] [address] Licensed Practical Nurse Family Medicine 01/03/23 Chelsea Schrader LPN [address] [place] [address] 11/03/24 Christian Bustos DO [address] [place] [address] Referring Physician Orthopaedic Surgery 01/17/25 Domenico Gipson MD [address] [facility] [address] [place] [address] Referring Physician Urology 01/17/25 Juan Cook DO [address] [place] [address] Referring Physician Otolaryngology 01/17/25 Commercial Accountant Relationship Specialty Start Date End Date Jarred Arias MD [address] [place] [address] PCP - ACO Reach 12/27/22 Jarred Arias MD [address] [place] [address] PCP - General Family Medicine 01/03/23 Kellie Odom LPN [address] [place] [address] Licensed Practical Nurse Family Medicine 01/03/23 Chelsea Schrader LPN [address] [place] [address] 11/03/24 Christian Bustos DO [address] [place] [address] Referring Physician Orthopaedic Surgery 01/17/25 Domenico Gipson MD [address] [facility] [address] [place] [address] Referring Physician Urology 01/17/25 Juan Cook DO [address] [place] [address] Referring Physician Otolaryngology 01/17/25 Goals (unrecognized section and content) Goals may [...] BE BASED ON THE PRIMARY CLINICAL RECORDS. [facility] provides no warranty or guarantee of the accuracy or completeness of information in this document.
[2025-04-06] MEDS: MECLIZINE HCL 12.5 MG TABLET 25 MG PO (17:33)
== END 2025-04-06 18:37 | disposition home or self-care (01) ==
PROVIDERS: Emergency Provider Student in an Organized Health Care Education/Training Program; PCP Family Medicine
DX: R42 Dizziness and giddiness (principal); I10 Essential (primary) hypertension
CPT/HCPCS: 36415; 70450; 70496; 70498; 80053; 83735; 84484; 85025; 93005; 99285; Q9967